=== PATIENT | male | born 1955 | race Caucasian/White ===

== ENCOUNTER 2016-11-28 07:50 | Day surgery (SDC) | payer OTHER ==
[~2016-11-28] VITALS: Ht 175.3 cm; Wt 76.4 kg
[2016-11-28] VITALS (17 sets, daily range): BP systolic 154–214; BP diastolic 81–111; PULSE 76–94; RESP 15–31; Ht 175.3 cm; Wt 76.4 kg
[~2016-11-28 07:50] MED LIST: CEFAZOLIN 2 GM/50 ML (PMX) 50 ML IVPB SCH; DIPHENHYDRAMINE 50 MG INJ IV PRN; DOXY100C47 PO; EPHEDrine SULFATE 50 MG/5 ML SYG IV PRN; FENT1PAT54 TD; FENTAnyl 50 MCG/ML VIAL IV PRN; HYDR-906 PO; HYDROmorphONE (0.2 MG/ML) 10ML SYG IV PRN; LABETALOL HCL 20MG INJ IV PRN; LACTATED RINGER'S 1,000 ML IV* SCH; MEPERIDINE 25 MG INJ IV PRN; ONDANSETRON 4 MG INJ IV PRN; OXYC-281 PO; OXYCODONE/ACETAMINOPHEN (5/325) TAB PO PRN; PROCHLORPERAZINE 10 MG INJ IV PRN; QUIN20TA23 PO; hydrALAzine 20 MG INJ IV PRN
[2016-11-28] MEDS ORDERED: AMLO-147 PO (09:07)
[2016-11-28] MEDS ORDERED: ZOLP10TA3 SL (09:08)
[2016-11-28] MEDS ORDERED: HYDR12.58 PO (09:08)
[2016-11-28] MEDS ORDERED: FER325 PO (09:08)
[2016-11-28] MEDS ORDERED: LORA1TAB PO (09:09)
[2016-11-28] MEDS ORDERED: ATOR40TA68 PO (09:09)
[2016-11-28] MEDS ORDERED: METO-429 PO (09:11)
[2016-11-28] MEDS ORDERED: QUIN40TA22 PO (09:11)
[2016-11-28] MEDS ORDERED: SERT50TA PO ×2 (09:12→09:13)
[2016-11-28 09:59] LABS: BASOPHIL # 0.1 10^3/ul (0.0-0.1); BASOPHILS % 2.1 % (0.0-2.0); EOSINOPHILS # 0.1 10^3/ul (0.0-0.5); EOSINOPHILS % 1.6 % (0.0-7.0); HEMATOCRIT 40.8 % (42.0-52.0); HEMOGLOBIN 13.3 g/dl (14.0-18.0); LYMPHOCYTES # 1.2 10^3/ul (0.8-2.9); LYMPHOCYTES % 17.8 % (15.0-51.0); MEAN CORPUSCULAR HEMOGLOBIN 30.4 pg (29.0-33.0); MEAN CORPUSCULAR HGB CONC 32.6 g/dl (32.0-37.0); MEAN CORPUSCULAR VOLUME 93.4 fl (82.0-101.0); MEAN PLATELET VOLUME 10.3 fl (7.4-10.4); MONOCYTE # 0.6 10^3/ul (0.3-0.9); MONOCYTES % 9.1 % (0.0-11.0); NEUTROPHILS % 69.1 % (39.0-77.0); PLATELET COUNT 308 10^3/UL (140-415); RED BLOOD COUNT 4.37 10^6/ul (4.70-6.10); WHITE BLOOD COUNT 6.7 10^3/ul (4.8-10.8)
[2016-11-28 10:32] LABS: INR 0.98
--- NOTE | 2016-11-28 11:02 | HPN ---
Date/Time of Note Date/Time of Note DATE: 11/28/16 TIME: 11:01 Interval H&P Admission Note Pt. seen H&P reviewed: No system changes SARANYA JONES MD Nov 28, 2016 11:02
[2016-11-28 11:03] LABS: CALCIUM 8.8 mg/dl (8.4-10.2); CREATININE 0.79 mg/dl (0.61-1.24); POTASSIUM 3.8 mmol/L (3.5-5.1)
[2016-11-28] MEDS ORDERED: FENTAnyl 50 MCG/ML VIAL ONE (11:10)
[2016-11-28] MEDS ORDERED: LIDOCAINE 2% (SDV) 5 ML INJ ONE (11:10)
[2016-11-28] MEDS ORDERED: MIDAZOLAM 1 MG/ML 2 ML INJ ONE (11:10)
[2016-11-28] MEDS ORDERED: PROPOFOL 20 ML ONE (11:10)
[2016-11-28] MEDS ORDERED: ROCURONIUM 50 MG INJ ONE (11:10)
[2016-11-28] MEDS ORDERED: GLYCOPYRROLATE 0.4 MG INJ ONE (11:10)
[2016-11-28] MEDS ORDERED: NEOSTIGMINE 3 MG/3 ML SYRINGE ONE (11:10)
[2016-11-28] MEDS ORDERED: SUCCINYLCHOLINE CHLORIDE 100 MG/5 ML SYG IV ONE (11:13)
[2016-11-28] MEDS ORDERED: ROPIVACAINE 0.5 % 30 ML VIAL ONE (11:14)
[2016-11-28] MEDS ORDERED: SUGAMMADEX SODIUM 200 MG/2 ML VIAL IV ONE (11:14)
[2016-11-28] MEDS ORDERED: DEXAMETHASONE 4 MG/ML 1 ML INJ ONE (11:17)
[2016-11-28] MEDS ORDERED: ONDANSETRON 4 MG INJ ONE (11:17)
[2016-11-28] MEDS ORDERED: BUPIVACAINE 0.5%/EPI (SDV) 30 ML INJ ONE (11:22)
[2016-11-28] MEDS ORDERED: VANCOMYCIN 1 GM (PMX) 250 ML ONE (12:25)
--- NOTE | 2016-11-28 13:05 | SIPON ---
Date/Time of Note Date/Time of Note DATE: 11/28/16 TIME: 13:03 Operative Report Preoperative Diagnosis Right shoulder, loose glenoid component of total shoulder arthroplasty Postoperative Diagnosis Right, shoulder, loose glenoid component of total shoulder arthroplasty, synovitis, chondromalacia Operation/Procedure Performed Right shoulder arthroscopy, removal of loose glenoid component via seperate incision, chondroplasty, synovectomy, Surgeon: SARANYA JONES MD Anesthesia Type: general Estimated Blood Loss: minimal Transfusion Required: no Specimens Glenoid polyethylene component Grafts/Implants: none Complications: no SARANYA JONES MD Nov 28, 2016 13:05
[2016-11-28] MEDS ORDERED: hydrALAzine 20 MG INJ ONE (13:18)
[2016-11-28] MEDS ORDERED: LABETALOL HCL 20MG INJ ONE (13:19)
[2016-11-28] MEDS: hydrALAzine 20 MG INJ IV PRN ×2 (13:30→15:37)
[2016-11-28] MEDS ORDERED: OXYCODONE/ACETAMINOPHEN (5/325) TAB PO PRN ×2 (13:30)
[2016-11-28] MEDS ORDERED: ONDANSETRON 4 MG INJ IV PRN (13:30)
[2016-11-28] MEDS ORDERED: morphine (1 MG/ML) 10ML SYRINGE IV PRN (13:30)
[2016-11-28] MEDS ORDERED: ALBUTEROL 0.083% (NEB) 2.5 MG/3 ML AMP HHN PRN (13:30)
[2016-11-28] MEDS ORDERED: FENTAnyl 50 MCG/ML VIAL IV PRN ×2 (13:30)
[2016-11-28] MEDS ORDERED: METOCLOPRAMIDE 10 MG INJ IV PRN (13:30)
[2016-11-28] MEDS ORDERED: HYDROmorphONE (0.2 MG/ML) 10ML SYG IV PRN ×3 (13:30)
[2016-11-28] MEDS ORDERED: MEPERIDINE 25 MG INJ IV PRN (13:30)
[2016-11-28] MEDS: LABETALOL HCL 20MG INJ IV PRN ×3 (13:40→13:57)
--- NOTE | 2016-11-28 13:51 | RADRPT ---
PROCEDURE: XR Chest. CLINICAL INDICATION: Shortness of breath. TECHNIQUE: Single frontal view. COMPARISON: None. FINDINGS: The lungs are clear. The heart size is normal. There are sternal wires and mediastinal clips. There is no pleural effusion. There is no pneumothorax. There are bilateral humeral head prosthesis. IMPRESSION: 1. Previous median sternotomy. 2. Clear lungs. 3. Prior bilateral shoulder surgery. RPTAT: QQ .Hans Palmer MD, MD Date Time Electronically viewed and signed by .Hans Palmer MD, MD on 11/28/2016 13:51 .R/
[2016-11-28] MEDS: morphine (1 MG/ML) 10ML SYRINGE IV PRN ×2 (14:09→14:16)
--- NOTE | 2016-11-29 08:40 | OPR ---
DATE OF OPERATION: 11/28/2016 SURGEON: Roland Casillas MD. TRAINING PROJECT MANAGER: None. ANESTHESIOLOGIST: Dr. Kirby. ANESTHESIOLOGIST: General with preoperative interscalene block. PREOPERATIVE DIAGNOSIS: Right total shoulder arthroplasty, loose glenoid component. POSTOPERATIVE DIAGNOSES: 1. Right total shoulder arthroplasty, loose glenoid component. 2. Synovitis of the glenohumeral joint. 3. Chondromalacia of the glenoid. OPERATION PERFORMED: 1. Arthroscopy of the right shoulder. 2. Arthroscopic removal of loose body through a separate incision, 22 modifier. 3. Extensive debridement of glenohumeral joint. 4. Chondroplasty of glenoid. 5. Arthroscopic synovectomy, extensive. ESTIMATED BLOOD LOSS: Minimal. ANTIBIOTICS: Ancef. INDICATION: This is a patient who underwent total shoulder arthroplasty previously with Dr. Magaña and ultimately the glenoid component underwent loosening, with significant drifting through the musculature, causing patient and deformity. After the risks of surgery, including pain, bleeding, infection, damage to neurovascular structures, failure of surgery, blood clots of the upper extremities, lower extremities, pulmonary embolus, risks of anesthesia and were explained to the patient, he elected to proceed. He understood the risks of the surgery could include infection and instability of the total arthroplasty, patient elected to proceed. ARTHROSCOPIC FINDINGS: Within the glenohumeral joint, the total shoulder arthroplasty humeral component was in good condition. There was extensive excoriation of the glenoid consistent with previous placement of a glenoid component. There was synovitis in all compartments of the glenoid 360 degrees. There was no visible evidence of the glenoid component within the joint. There were no rents or holes in the posterior capsule indicative of wear the escape exactly took place; however, the glenoid component was palpable underneath the skin in the posterior musculature. OPERATIVE PROCEDURE: Patient was marked and identified in the preoperative holding. Brought to the operating room, placed supine on the operating room table, was placed under anesthesia. He was then placed in the lateral decubitus position with his arm placed in balance suspension and his bony prominences were well padded. Sequential compression devices placed on bilateral lower extremities and his head well positioned. His bilateral upper extremities prepped and draped in the usual sterile fashion and he was placed in balance suspension and a time-out was initiated and arthroscopy was initiated, with the results of diagnostic arthroscopy. First area of work was performed by chondroplasty within the glenoid. This was successfully done due to the previous reaming that took place on the glenoid, as well as the synovectomy, which took place on 360 degrees. There were extensive areas of synovitis, especially posterior. The posterior capsule was well inspected and found to have absolutely no evidence of wear at this point, the component had escaped from, indicated the time, which this component has been loose, which has been some time. The inspection of the humeral component was in good condition. The rotator cuff was also in good condition. The glenoid component was localized with a spinal needle and poking right through the skin in order to capture the glenoid. Then an incision was made through Aldo's lines and submuscularly split and spread until the bursa was identified for the and then 1 instrument was used to grab the component and retrieve it from the body. This was done in a single piece. The glenoid was removed completely in 1 piece. The space was copiously irrigated and closure was performed with 2-0 Vicryl and then 3-0 Monocryl. Other portals were closed with 3-0 Monocryl. The scope was re- introduced into the joint to confirm that there were no other changes and this terminated the procedure. After closure, a sterile dressing was applied and the patient extubated in good condition with abduction pillow and a sling. 22 MODIFIER STATEMENT: A 22 modifier will be applied for the CPT codes in this case. This case took significantly longer than the standard case due to the unique feature of the fact this was a loose total shoulder arthroplasty of glenoid component, not just a some fragment of cocopah tissue. There was no CPT code that matches this; therefore, a 22 modifier will be applied to the existing CPT codes to match this increased difficulty and double to triple standard operating time required. Dictated By: Roland Casillas MD /thomas/antonia /Document#: [id number] CARLOS ENRIQUE
== END 2016-11-28 16:29 | disposition home or self-care (01) ==
LOC: SDS 07:50
PROVIDERS: ATTEND Orthopaedic Surgery
DX: Z96.619 Presence of unspecified artificial shoulder joint (principal); T84.89XA Other specified complication of internal orthopedic prosthetic devices, implants and grafts, initial encounter; Y79.8 Miscellaneous orthopedic devices associated with adverse incidents, not elsewhere classified; Y92.89 Other specified places as the place of occurrence of the external cause; I10 Essential (primary) hypertension; J44.9 Chronic obstructive pulmonary disease, unspecified; I25.110 Atherosclerotic heart disease of native coronary artery with unstable angina pectoris; Z95.1 Presence of aortocoronary bypass graft; F17.200 Nicotine dependence, unspecified, uncomplicated
CPT/HCPCS: 29820; 71010; 80048; 85025; 85610; 85730; 88300; J0360; J1100; J2250; J2270; J2405; J2795; J3010; J3370; Z7512; Z7610; J2710; J7999

== ENCOUNTER 2016-12-18 14:22 | Inpatient (IN) | payer OTHER ==
[~2016-12-18] VITALS: Ht 167.6 cm; Wt 78.8 kg
[~2016-12-18 14:22] MED LIST changes: +AMLO-147 PO; +ATOR40TA68 PO; -CEFAZOLIN 2 GM/50 ML (PMX) 50 ML IVPB SCH; -DIPHENHYDRAMINE 50 MG INJ IV PRN; -DOXY100C47 PO; -EPHEDrine SULFATE 50 MG/5 ML SYG IV PRN; -FENT1PAT54 TD; -FENTAnyl 50 MCG/ML VIAL IV PRN; +FER325 PO; -HYDR-906 PO; +HYDR12.58 PO; -HYDROmorphONE (0.2 MG/ML) 10ML SYG IV PRN; -LABETALOL HCL 20MG INJ IV PRN; -LACTATED RINGER'S 1,000 ML IV* SCH; +LORA1TAB PO; -MEPERIDINE 25 MG INJ IV PRN; +METO-429 PO; -ONDANSETRON 4 MG INJ IV PRN; -OXYC-281 PO; -OXYCODONE/ACETAMINOPHEN (5/325) TAB PO PRN; -PROCHLORPERAZINE 10 MG INJ IV PRN; -QUIN20TA23 PO; +QUIN40TA PO; +SERT50TA PO; +ZOLP10TA3 SL; -hydrALAzine 20 MG INJ IV PRN
[2016-12-18] MEDS ORDERED: VANCOMYCIN 1 GM (PMX) 250 ML IVPB STA (16:15)
[2016-12-18] MEDS ORDERED: PIPER-TAZO 3.375 GM IV (PMX) 100 ML IVPB STA (16:15)
--- NOTE | 2016-12-18 16:35 | ERA ---
ER Documentation Chief Complaint Date/Time DATE: 12/18/16 TIME: 16:25 Chief Complaint Complains of right shoulder pain sent from for val THOMAS This is a 61-year-old male with a past medical history of hypertension, hyperlipidemia, aortic dissection and December 2015 requiring emergent surgical intervention at [facility], chronic bilateral shoulder pain requiring replacement in the past with a recent surgical intervention of the right shoulder requiring removal of hardware who is now presenting with concerns of a right shoulder infection. This surgery was completed by Dr. Casillas on November 28. He started to develop worsening pain at his portal incision site with redness and swelling. He was seen by Dr. Buckley in the office today who attempted an I&D without significant success. There is concern of infection at the site. Dr. Buckley is requesting a workup be performed in addition to giving IV antibiotics. He requests admission to the hospital with a consultation to his service. Aside from pain and limited range of motion to the right shoulder, the patient has no other complaints. He has not had any fever or chills. He has had no chest pain or trouble breathing. He has had no nausea or vomiting. He has no chest pain or trouble breathing. He has no radiating pain. He has no abdominal pain. He has no changes to bowel movements or urination. He has no focal deficits. He has no weakness or numbness or tingling to the face or extremities. He has full strength and sensation to the right arm/hand. His pulses are normal. His hand is not pale or cyanotic. ROS All systems reviewed and are negative except as per history of present illness. Medications Home Meds Reported Medications Hydrocodone/Acetaminophen ([place] 5-325 Tablet) 1 Each Tablet, 1 EACH PO DAILY for NEEDED, TAB 12/18/16 Tramadol Hcl* (Ultram*) 50 Mg Tablet, 50 MG PO Q6H Y for PAIN, TAB 12/18/16 Quinapril Hcl (Quinapril Hcl) 40 Mg Tablet, 40 MG PO DAILY, #30 TAB 11/28/16 Metoprolol Tartrate* (Lopressor*) 50 Mg Tab, 50 MG PO BID, #60 TAB 11/28/16 Atorvastatin* (Atorvastatin*) 40 Mg Tablet, 40 MG PO QHS, #30 TAB 11/28/16 Ferrous Sulfate* (Ferrous Sulfate*) 325 Mg Tabec, 325 MG PO BID, TAB 11/28/16 Amlodipine Besylate* (Amlodipine Besylate*) 10 Mg Tablet, 10 MG PO DAILY, #30 TAB 11/28/16 Discontinued Reported Medications Sertraline Hcl* (Zoloft*) 50 Mg Tablet, 50 MG PO DAILY, #30 TAB 11/28/16 Sertraline Hcl* (Zoloft*) 50 Mg Tablet, 50 MG PO DAILY, #30 TAB 11/28/16 Lorazepam* (Lorazepam*) 1 Mg Tablet, 1 MG PO TID Y for ANXIETY, #30 TAB 11/28/16 Hydrochlorothiazide* (Hydrochlorothiazide*) 12.5 Mg Tablet, 12.5 MG PO DAILY, # 30 TAB 11/28/16 Zolpidem Tartrate (Edluar) 10 Mg Tab.subl, 10 MG SL QHS 11/28/16 Allergies Allergies: Coded Allergies: Sulfa (Sulfonamide Antibiotics) (Unverified Allergy, Mild, 12/18/16) Penicillins (Verified Allergy, Unknown, 12/18/16) PMhx/Soc History of Surgery: Yes (MULTIPLE ORTHO SX. GABG, ) Anesthesia Reaction: No Hx Neurological Disorder: No Hx Respiratory Disorders: Yes (EMPHYSEMA ) Hx Cardiac Disorders: Yes (HTN , HIGH CHOLESTEROL ) Hx Psychiatric Problems: No Hx Miscellaneous Medical Probl: No Hx Alcohol Use: No Hx Substance Use: No Hx Tobacco Use: Yes FmHx Family History: diabetes Physical Exam Vitals Vital Signs Date Time Temp Pulse Resp B/P Pulse Ox O2 Delivery O2 Flow Rate FiO2 12/18/16 17:11 99.0 79 20 138/81 98 Room Air 12/18/16 14:25 99.3 85 20 158/84 98 Physical Exam Const: NAD, Well developed, Well nourished Head: Atraumatic Eyes: Normal Conjunctiva ENT: Normal External Ears, Nose and Mouth. Neck: Full range of motion..~ No meningismus. Resp: Clear to auscultation bilaterally Cardio: Regular rate and rhythm, no murmurs Abd: Soft, non tender, non distended. Normal bowel sounds Skin: No petechiae or rashes Back: No midline or flank tenderness Ext: No cyanosis. right posterior shoulder pain, fluctuance, edema, erythema. Limited ROM to right shoulder. normal pulses, sensation and strength to the right arm distal to the shoulder. Neur: Awake and alert Psych: Normal Mood and Affect Result Diagram: 12/18/16 1630 12/18/16 1630 Results 24 hrs Laboratory Tests Test 12/18/16 16:20 12/18/16 16:30 Erythrocyte Sedimentation Rate 20mm/Hr White Blood Count 17.210^3/ul Red Blood Count 4.4210^6/ul Hemoglobin 13.3g/dl Hematocrit 40.2% Mean Corpuscular Volume 91.0fl Mean Corpuscular Hemoglobin 30.1pg Mean Corpuscular Hemoglobin Concent 33.1g/dl Red Cell Distribution Width 14.2% Platelet Count 35840^3/UL Mean Platelet Volume 10.1fl Neutrophils % 81.0% Lymphocytes % 7.2% Monocytes % 9.8% Eosinophils % 0.6% Basophils % 0.9% Nucleated Red Blood Cells % 0.0/100WBC Neutrophils # 13.910^3/ul Lymphocytes # 1.210^3/ul Monocytes # 1.710^3/ul Eosinophils # 0.110^3/ul Basophils # 0.210^3/ul Nucleated Red Blood Cells # 0.010^3/ul Prothrombin Time 13.4Sec Prothrombin Time Ratio 1.0 INR International Normalized Ratio 1.02 Activated Partial Thromboplast Time 30.6Sec Sodium Level 139mmol/L Potassium Level 4.1mmol/L Chloride Level 105mmol/L Carbon Dioxide Level 26mmol/L Anion Gap 12 Blood Urea Nitrogen 22mg/dl Creatinine 0.96mg/dl Glucose Level 100mg/dl Calcium Level 8.6mg/dl C-Reactive Protein 4.7mg/dl Current Medications Medications (Trade) Dose Ordered Sig/Sudhir Route PRN Reason Start Time Stop Time Status Last Admin Dose Admin Vancomycin HCl 250 ml @ 125 mls/hr ONCE STAT IVPB 12/18/16 16:15 12/18/16 18:14 DC Piperacillin Sod/ Tazobactam Sod 100 ml @ 100 mls/hr ONCE STAT IVPB 12/18/16 16:15 12/18/16 17:09 DC Cefepime HCl (Maxipime 1gm/50 ml (Pmx)) 50 ml @ 100 mls/hr ONCE ONCE IVPB 12/18/16 17:30 12/18/16 17:59 DC 12/18/16 17:16 Ondansetron HCl (Zofran Inj) 4 mg BRIDGE ORDER PRN IV NAUSEA AND/OR VOMITING 12/18/16 18:00 12/19/16 17:59 Acetaminophen (Tylenol Tab) 650 mg ER BRIDGE PRN PO MILD PAIN/FEVER 12/18/16 18:00 12/19/16 17:59 Lidocaine/ Epinephrine (Xylocaine 1%/ Epi (Pf)) 30 ml ONCE STAT INJ 12/18/16 17:47 12/18/16 17:48 DC Lidocaine (Xylocaine 1% (Mdv) 20 ml) 20 ml ONCE ONCE SC 12/18/16 18:00 12/18/16 18:03 DC Lidocaine/ Epinephrine (Xylocaine 2%/ Epi Mpf(Sdv)) 20 ml ONCE INJ 12/18/16 18:30 12/18/16 18:31 DC Lidocaine/ Epinephrine (Xylocaine 2%/ Epi Mpf(Sdv)) 20 ml ONCE ONCE INJ 12/18/16 18:30 12/18/16 18:31 DC IV Flush (NS 3 ml) 3 ml PER PROTOCOL IV 12/18/16 19:00 UNV Acetaminophen (Tylenol Tab) 650 mg Q6H PRN PO PAIN LEVEL 1-3 OR FEVER 12/18/16 19:00 UNV Acetaminophen/ Hydrocodone Bitart ([place] (5/325)) 1 tab Q6H PRN PO MODERATE PAIN LEVEL 4-6 12/18/16 19:00 UNV Acetaminophen/ Hydrocodone Bitart ([place] (5/325)) 2 tab Q6H PRN PO SEVERE PAIN LEVEL 7-10 12/18/16 19:00 UNV Morphine Sulfate (morphine) 2 mg Q4H PRN IV SEVERE PAIN LEVEL 7-10 12/18/16 19:00 UNV Enoxaparin Sodium (Lovenox) 40 mg DAILY SC 12/19/16 09:00 UNV Vancomycin HCl (Vanco Iv Per Pharmacy) VANCOMYCIN PER PHARMACY PER PROTOCOL XX 12/18/16 19:00 UNV Amlodipine Besylate (Norvasc) 10 mg DAILY PO 12/19/16 09:00 UNV Atorvastatin Calcium (Lipitor) 40 mg QHS PO 12/18/16 21:00 UNV Ferrous Sulfate (Ferrous Sulfate (Ec)) 325 mg BID PO 12/18/16 21:00 UNV Metoprolol Tartrate (Lopressor) 50 mg BID PO 12/18/16 21:00 UNV Tramadol HCl (Ultram) 50 mg Q6H PRN PO PAIN 12/18/16 19:00 UNV Miscellaneous Information 40 mg DAILY PO 12/19/16 09:00 UNV Hydromorphone HCl (Dilaudid) 1 mg ONCE STAT IV 12/18/16 18:51 12/18/16 18:52 UNV Procedures/MDM MDM Patient's presentation warrants further investigation. There are concerns of infection of the right shoulder as a postoperative complication. Blood work including ESR and CRP will be obtained. LABS The patient's blood work was obtained and reviewed. The patient seemed shows leukocytosis and left shift. The patient is afebrile, but a systemic infection should be ruled out. Blood cultures will need to be sent off. The patient is mildly anemic today, which does not require emergent treatment. The patient's platelet count is unremarkable. The patient's CMP shows an elevated BUN that could be a component of dehydration, but no other signs of metabolic or electrolyte abnormality. The patient has normal renal and hepatic function testing. The patients CRP is mildly elevated, and the ESR is normal. This is reassuring. IMAGING Shoulder XR FINDINGS: No pleural effusion or pneumothorax. No consolidation. Unremarkable cardiac silhouette. Dilated aortic arch suggestive of chronic systemic hypertension. No acute osseous abnormality. Median sternotomy changes. Bilateral shoulder arthroplasties. MPRESSION: No acute cardiopulmonary disease. Electronically viewed and signed by Physician Nicolasa on 12/18/2016 17 :08 Shoulder XR Pending. Will be evaluated by orthopedic surgeon EKG EKG read by me: Rate/Rhythm: Regular rate and rhythm at a rate of 76 Intervals: Normal [place]: Normal Impression: No evidence of ischemia or arrhythmia TREATMENT/DISPOSITION The patient has leukocytosis with findings consistent with a right shoulder soft tissue infection at minimum. The patient will receive antibiotics of vancomycin and cefepime in the emergency department per the instruction of the orthopedic physician. The patient's vital signs are stable, and I do not suspect sepsis at this time. I do not intend to obtain serial lactic acids. Blood cultures will be sent off however for further evaluation by the team in the hospital. The patient's chest x-ray was unremarkable. His shoulder x-ray is pending and will be evaluated by the orthopedic surgeon. His orthopedic surgeon, Dr. Casillas evaluated the patient in the emergency department. An I&D was completed and wound cultures will be sent off. This does appear to be an infection in the port site from the operative intervention in November. Further intervention will be decided upon by the orthopedic physician. The patient will be admitted to the panel service as per his insurance. The hospitalist team will provide primary evaluation and management with consultation with the orthopedic doctor. Departure Diagnosis: Primary Impression: Shoulder pain Qualified Code: M25.511 - Acute pain of right shoulder Additional Impressions: Leukocytosis Qualified Code: D72.820 - Lymphocytosis Post op infection Qualified Code: T81.4XXA - Postoperative infection, initial encounter Condition: MATHIEU Pisano MD Dec 18, 2016 16:35
[2016-12-18 16:53] LABS: ABNORMAL IP MESSAGE 1; BASOPHIL # 0.2 10^3/ul (0.0-0.1); BASOPHILS % 0.9 % (0.0-2.0); EOSINOPHILS # 0.1 10^3/ul (0.0-0.5); EOSINOPHILS % 0.6 % (0.0-7.0); HEMATOCRIT 40.2 % (42.0-52.0); HEMOGLOBIN 13.3 g/dl (14.0-18.0); LYMPHOCYTES # 1.2 10^3/ul (0.8-2.9); LYMPHOCYTES % 7.2 % (15.0-51.0); MEAN CORPUSCULAR HEMOGLOBIN 30.1 pg (29.0-33.0); MEAN CORPUSCULAR HGB CONC 33.1 g/dl (32.0-37.0); MEAN PLATELET VOLUME 10.1 fl (7.4-10.4); MONOCYTE # 1.7 10^3/ul (0.3-0.9); MONOCYTES % 9.8 % (0.0-11.0); NEUTROPHIL # 13.9 10^3/ul (1.6-7.5); PLATELET COUNT 301 10^3/UL (140-415); POSITIVE DIFF @See below; RED BLOOD COUNT 4.42 10^6/ul (4.70-6.10); RED CELL DISTRIBUTION WIDTH 14.2 % (11.5-14.5); WHITE BLOOD COUNT 17.2 10^3/ul (4.8-10.8)
--- NOTE | 2016-12-18 17:08 | RADRPT ---
PROCEDURE: XR Chest. CLINICAL INDICATION: Cough TECHNIQUE: Single frontal view of the chest was obtained COMPARISON: None FINDINGS: No pleural effusion or pneumothorax. No consolidation. Unremarkable cardiac silhouette. Dilated aortic arch suggestive of chronic systemic hypertension. No acute osseous abnormality. Median sternotomy changes. Bilateral shoulder arthroplasties. IMPRESSION: No acute cardiopulmonary disease. RPTAT: EE Physician Nicolasa Date Time Electronically viewed and signed by Deb Peterson Physician on 12/18/2016 17:08 /
[2016-12-18 17:16] LABS: INR 1.02; PROTIME 13.4 Sec (12.2-14.2)
[2016-12-18 17:17] LABS: PARTIAL THROMBOPLASTIN TIME 30.6 Sec (25.0-35.0)
[2016-12-18 17:20] LABS: CALCIUM 8.6 mg/dl (8.4-10.2); CREATININE 0.96 mg/dl (0.61-1.24); POTASSIUM 4.1 mmol/L (3.5-5.1)
[2016-12-18] MEDS ORDERED: TRAM-40 PO (17:27)
[2016-12-18] MEDS ORDERED: HYDR-906 PO (17:27)
[2016-12-18] MEDS ORDERED: CEFEPIME 1GM/50 ML (PMX) 50 ML IVPB ONE (17:30)
[2016-12-18] MEDS ORDERED: LIDOCAINE 1%/EPI 30 ML INJ INJ STA (17:47)
[2016-12-18] MEDS ORDERED: ONDANSETRON 4 MG INJ IV PRN (18:00)
[2016-12-18] MEDS ORDERED: ACETAMINOPHEN 325 MG TAB PO PRN ×2 (18:00→19:00)
[2016-12-18] MEDS ORDERED: LIDOCAINE 1% (MDV) 20 ML INJ SC ONE (18:00)
[2016-12-18 18:15] LABS: C-REACTIVE PROTEIN 4.7 mg/dl (0.0-0.9)
[2016-12-18] MEDS ORDERED: LIDOCAINE 2%/EPI MPF (SDV) 20 ML VIAL INJ SCH (18:30)
[2016-12-18] MEDS ORDERED: LIDOCAINE 2%/EPI MPF (SDV) 20 ML VIAL INJ ONE (18:30)
--- NOTE | 2016-12-18 18:45 | HP ---
Date/Time of Note Date/Time of Note DATE: 12/18/16 TIME: 18:44 Assessment/Plan VTE Prophylaxis VTE Prophylaxis Intervention: SCD's Lines/Catheters IV Catheter Type (from Nrsg): Peripheral IV Assessment/Plan Assessment/Plan 61 yo M here with wound infection, concern for PJI plan I&D by ortho today empiric vanc pending further culture data cont home meds may need washout pending results of ortho I&D HPI/ROS Admit Date/Time Admit Date/Time Hx of Present Illness CC R shoulder wound HPI 61 yo M with pmhx HTN, HL, SHIRA, h/o bl shoulder replacements with most recent surgical intervention 1 mo ago presents with a R shoulder wound. Pt with remote h/o bl shoulder replacements. A few weeks ago had R shoulder pain, orthopedic eval concerning for loosening of glenoid part of prosthesis. 9.1 pt underwent R total shoulder arthroplasty with loose body removal. The loose body was noted to be outside of the actual joint space and was retrieved from under the skin. Pt then missed his f/u ortho clinic appointment but was then seen yesterday and noted to have redness and some purulence draining from his R shoulder surgical site. This was cultured in clinic. Because this did not resolve overnight ,he presented to the ER today for further eval. Of note, at time of my eval of the patient, orthopedist was in the room and preparing to do an I&D. = PMH/Family/Social Social History Smoking Status: Current every day smoker Exam/Review of Systems Vital Signs Vitals Vital Signs Date Time Temp Pulse Resp B/P Pulse Ox O2 Delivery O2 Flow Rate FiO2 12/18/16 17:11 99.0 79 20 138/81 98 Room Air Exam Exam nad EOMI MMM R shoulder with 4 cm incision at lateral aspect, +.5cm surrounding erythema and induration on both sides, +purulent drainage from wound no mrg lungs clear abd soft no rashes WBCs 17 Labs Result Diagram: 12/18/16 1630 12/18/16 1630 Medications Medications Current Medications Acetaminophen (Tylenol Tab) 650 mg Q6H PRN PO PAIN LEVEL 1-3 OR FEVER; Start at 19:00; Status UNV Acetaminophen/ Hydrocodone Bitart ([place] (5/325)) 1 tab Q6H PRN PO MODERATE PAIN LEVEL 4-6; Start 12/18/16 at 19:00; Status UNV Acetaminophen/ Hydrocodone Bitart ([place] (5/325)) 2 tab Q6H PRN PO SEVERE PAIN LEVEL 7-10; Start 12/18/16 at 19:00; Status UNV Morphine Sulfate (morphine) 2 mg Q4H PRN IV SEVERE PAIN LEVEL 7-10; Start 12/18 at 19:00; Status UNV Enoxaparin Sodium (Lovenox) 40 mg DAILY SC ; Start 12/19/16 at 09:00; Status UNV DOROTHY BRYSON MD Dec 18, 2016 18:45
[2016-12-18] MEDS ORDERED: HYDROmorphONE 1 MG/ML SYG IV STA (18:51)
[2016-12-18] MEDS ORDERED: NACL 0.9% 3 ML SYG IV SCH (19:00)
[2016-12-18] MEDS ORDERED: VANCOMYCIN IV PER PHARMACY XX SCH (19:00)
--- NOTE | 2016-12-18 19:31 | RADRPT ---
PROCEDURE: XR Shoulder CLINICAL INDICATION: Right shoulder infection. TECHNIQUE: Three views of the right shoulder are available for review. COMPARISON: Exam dated 03/02/2014. FINDINGS: There is a right shoulder arthroplasty in place without evidence of hardware loosening, f ailure, or periprosthetic fracture. The alignment is unchanged. There is edema and questionable subc utaneous emphysema within the deltoid soft tissues. The glenohumeral joint is intact. The acromiocl avicular joint is also intact and unremarkable. The visualized right lung is clear and the visualize d right ribs demonstrate no displaced fracture. IMPRESSION: 1. Right shoulder arthroplasty in place without evidence of hardware complication. 2. Edema and questionable subcutaneous emphysema within the deltoid soft tissues, suspicious for ce llulitis. Post contrast CT may be helpful for further evaluation. RPTAT: HLBP .Percy Kline MD, Date Time Electronically viewed and signed by .Percy Kline MD, on 12/18/2016 19:31 .P/
[2016-12-18] MEDS ORDERED: HYDROmorphONE 1 MG/ML SYG IV ONE (21:18)
[2016-12-18 21:23] VITALS: TEMP 99
[2016-12-18] MEDS: HYDROCODONE/APAP (5/325) TAB PO PRN (22:20)
[2016-12-18 22:25] VITALS: BP 144/72; RESP 20
[2016-12-18] MEDS: ATORVASTATIN 40 MG TAB PO SCH (22:47)
[2016-12-18] MEDS: FERROUS SULFATE (EC) 325 MG TAB PO SCH (22:47)
[2016-12-18] MEDS: METOPROLOL 50 MG TAB PO SCH (22:47)
[2016-12-18 22:56] VITALS: Ht 167.6 cm; Wt 78.8 kg
[2016-12-18] MEDS ORDERED: ZOLPIDEM 5 MG TAB PO ONE (23:00)
[2016-12-19] MEDS: morphine 2 MG INJ IV PRN ×4 (00:35→14:15)
[2016-12-19 02:55] VITALS: BP 142/74; RESP 18
[2016-12-19] MEDS: VANCOMYCIN 1 GM in NS 250 ML IVPB SCH ×2 (05:00→17:27)
[2016-12-19 06:17] LABS: BASOPHIL # 0.1 10^3/ul (0.0-0.1); BASOPHILS % 0.7 % (0.0-2.0); EOSINOPHILS % 0.2 % (0.0-7.0); HEMATOCRIT 36.6 % (42.0-52.0); HEMOGLOBIN 12.1 g/dl (14.0-18.0); LYMPHOCYTES # 0.9 10^3/ul (0.8-2.9); LYMPHOCYTES % 4.8 % (15.0-51.0); MEAN CORPUSCULAR HEMOGLOBIN 30.6 pg (29.0-33.0); MEAN CORPUSCULAR HGB CONC 33.1 g/dl (32.0-37.0); MEAN CORPUSCULAR VOLUME 92.7 fl (82.0-101.0); MEAN PLATELET VOLUME 10.4 fl (7.4-10.4); MONOCYTE # 1.5 10^3/ul (0.3-0.9); NEUTROPHIL # 15.7 10^3/ul (1.6-7.5); NEUTROPHILS % 85.7 % (39.0-77.0); PLATELET COUNT 248 10^3/UL (140-415); RED BLOOD COUNT 3.95 10^6/ul (4.70-6.10); RED CELL DISTRIBUTION WIDTH 14.2 % (11.5-14.5); WHITE BLOOD COUNT 18.4 10^3/ul (4.8-10.8)
[2016-12-19] MEDS: HYDROCODONE/APAP (5/325) TAB PO PRN ×2 (07:04→19:55)
[2016-12-19 07:35] VITALS: BP 135/84; RESP 18
[2016-12-19] MEDS: METOPROLOL 50 MG TAB PO SCH ×2 (08:15→20:26)
[2016-12-19] MEDS: FERROUS SULFATE (EC) 325 MG TAB PO SCH ×2 (08:15→20:25)
[2016-12-19] MEDS: BENAZEPRIL 40 MG TAB PO SCH (08:15)
[2016-12-19] MEDS: AMLODIPINE 10 MG TAB PO SCH (08:15)
[2016-12-19] MEDS: ENOXAPARIN 40 MG/0.4 ML SYG SC SCH (08:19)
[2016-12-19] MEDS ORDERED: QUINAPRIL HCL 40 MG PO SCH (09:00)
[2016-12-19] MEDS ORDERED: NICOTINE (21 MG/24 HR) PATCH TRANSDERM ONE (09:30)
--- NOTE | 2016-12-19 14:22 | PN ---
Date/Time of Note Date/Time of Note DATE: 12/19/16 TIME: 14:20 Assessment/Plan VTE Prophylaxis VTE Prophylaxis Intervention: SCD's Lines/Catheters IV Catheter Type (from Nrsg): Saline Lock Urinary Cath still in place: No Assessment/Plan Assessment/Plan 61 yo M here with wound infection, concern for PJI v cellulitis. Found to have bacteremia plan Ortho following f/u blood cultures and TTE ordered empiric vanc pending further culture data cont home meds may need washout pending results of ortho I&D NRT Subjective 24 Hr Interval Summary Free Text/Dictation Pt wants to go out to smoke and requests more pain meds Exam/Review of Systems Vital Signs Vitals Vital Signs Date Time Temp Pulse Resp B/P Pulse Ox O2 Delivery O2 Flow Rate FiO2 12/19/16 07:35 98.4 79 18 135/84 95 12/18/16 21:23 Room Air Intake and Output 12/18/16 12/18/16 12/19/16 15:00 23:00 07:00 Intake Total 1520 ml Output Total 100 ml Balance 1420 ml Exam nad, R shoulder wrapped and packed no mrg lungs clear abd soft no rashes admit blood cultures GPCs 2/2, I&D culture ngtd Results Result Diagram: 12/19/16 0529 12/18/16 1630 Results 24 hrs Laboratory Tests Test 12/18/16 16:20 12/18/16 16:30 12/19/16 05:29 Erythrocyte Sedimentation Rate 20 White Blood Count 17.2 #H 18.4 H Red Blood Count 4.42 L 3.95 L Hemoglobin 13.3 L 12.1 L Hematocrit 40.2 L 36.6 L Mean Corpuscular Volume 91.0 92.7 Mean Corpuscular Hemoglobin 30.1 30.6 Mean Corpuscular Hemoglobin Concent 33.1 33.1 Red Cell Distribution Width 14.2 14.2 Platelet Count 301 248 Mean Platelet Volume 10.1 10.4 Neutrophils % 81.0 H 85.7 H Lymphocytes % 7.2 L 4.8 L Monocytes % 9.8 8.0 Eosinophils % 0.6 0.2 Basophils % 0.9 0.7 Nucleated Red Blood Cells % 0.0 0.0 Neutrophils # 13.9 H 15.7 H Lymphocytes # 1.2 0.9 Monocytes # 1.7 H 1.5 H Eosinophils # 0.1 0.0 Basophils # 0.2 H 0.1 Nucleated Red Blood Cells # 0.0 0.0 Prothrombin Time 13.4 Prothrombin Time Ratio 1.0 INR International Normalized Ratio 1.02 Activated Partial Thromboplast Time 30.6 Sodium Level 139 Potassium Level 4.1 Chloride Level 105 Carbon Dioxide Level 26 Anion Gap 12 Blood Urea Nitrogen 22 H Creatinine 0.96 Glucose Level 100 Calcium Level 8.6 C-Reactive Protein 4.7 H Medications Medications Current Medications Acetaminophen (Tylenol Tab) 650 mg Q6H PRN PO PAIN LEVEL 1-3 OR FEVER; Start at 19:00 Acetaminophen/ Hydrocodone Bitart ([place] (5/325)) 1 tab Q6H PRN PO MODERATE PAIN LEVEL 4-6; Start 12/18/16 at 19:00 Acetaminophen/ Hydrocodone Bitart ([place] (5/325)) 2 tab Q6H PRN PO SEVERE PAIN LEVEL 7-10 Last administered on 12/19/16 07:04; Admin Dose 2 TAB; Start at 19:00 Morphine Sulfate (morphine) 2 mg Q4H PRN IV SEVERE PAIN LEVEL 7-10 Last administered on 12/19/16 14:15; Admin Dose 2 MG; Start 12/18/16 at 19:00 Enoxaparin Sodium (Lovenox) 40 mg DAILY SC Last administered on 12/19/16 08:19 ; Admin Dose 40 MG; Start 12/19/16 at 09:00 Amlodipine Besylate (Norvasc) 10 mg DAILY PO Last administered on 12/19/16 08: 15; Admin Dose 10 MG; Start 12/19/16 at 09:00 Atorvastatin Calcium (Lipitor) 40 mg QHS PO Last administered on 12/18/16 22: 47; Admin Dose 40 MG; Start 12/18/16 at 21:00 Ferrous Sulfate (Ferrous Sulfate (Ec)) 325 mg BID PO Last administered on 08:15; Admin Dose 325 MG; Start 12/18/16 at 21:00 Metoprolol Tartrate (Lopressor) 50 mg BID PO Last administered on 12/19/16 08: 15; Admin Dose 50 MG; Start 12/18/16 at 21:00 Tramadol HCl 50 mg 50 mg Q6H PRN PO PAIN; Start 12/18/16 at 19:00 Vancomycin HCl (Vancocin) 250 ml @ 125 mls/hr Q12H IVPB Last administered on 05:00; Admin Dose 125 MLS/HR; Start 12/19/16 at 05:00 Benazepril HCl (Lotensin) 40 mg DAILY PO Last administered on 12/19/16 08:15; Admin Dose 40 MG; Start 12/19/16 at 09:00 Nicotine (Nicoderm 21 Mg/ 24hr) 1 patch DAILY TRANSDERM ; Start 12/20/16 at 09: 00 DOROTHY BRYSON MD Dec 19, 2016 14:22
[2016-12-19 14:42] VITALS: BP 144/68; RESP 18
[2016-12-19] MEDS: morphine 4 MG/ML VIAL IV PRN ×2 (17:28→22:03)
--- NOTE | 2016-12-19 18:19 | RADRPT ---
Echocardiogram Report Patient Name: HAYES LEOS Gender: Male Date: 1955 Study Date: 19-Dec-2016 University Teacher: Shubham Borden.[facility] Location: [id number] Ref. Physician: DOROTHY BRYSON Quality: Adequate Procedures: Transthoracic echocardiogram with complete 2D, M-Mode, and doppler examination. Indications: Bacteremia. 2D/M Mode Doppler Measurement Value Normal Ranges Measurement Value Normal Ranges LVIDd 2D 3.9 3.5 - 5.6 cm ISABEL Vmax 2.7 cm2 LVIDs 2D 2.5 2.1 - 4.1 cm ISABEL VTI 3.0 cm2 FS 2D 36.7 % AV Mean Haresh 1.5 m/sec LVPWd 2D 1.2 0.6 - 1.1 cm AV Mean PG 11.0 mmHg IVSd 2D 1.0 0.6 - 1.1 cm AV Peak Haresh 2.1 m/sec IVS/LVPW 2D 0.8 AV Peak PG 18.0 mmHg AoR Diam 2D 3.5 2.0 - 3.7 cm AV VTI 41.2 cm LA/Ao 2D 1 0 - 1 AI Peak PG 48.0 mmHg EDV 2D 59.3 cm3 AI Peak Haresh 3.5 m/sec ESV 2D 15.1 cm3 AI PHT 405.0 msec LA Dimen 2D 4.1 2.3 - 4.0 cm LVOT Mean Haresh 1.1 m/sec LVOT Diam 2.0 cm LVOT Mean PG 7.0 mmHg LVOT Area 3.1 cm2 LVOT Peak Haresh 1.8 m/sec LVOT Peak PG 13.0 mmHg LVOT VTI 39.2 cm MV E Peak Haresh 0.9 m/sec MV A Peak Haresh 0.9 m/sec MV E/A 1.0 MV Decel Time 197 msec MV E/A 1.0 TR Peak Haresh 3.1 m/sec TR Peak PG 38.0 mmHg RVSP 43.0 mmHg Findings Left Ventricle: Normal left ventricular systolic function. Normal left ventricular cavity size. Left ventricular wall thickness upper limits of normal. Ejection fraction is visually estimated at 5560 %. Tissue Doppler/Mitral Doppler indices are consistent with impaired relaxation (Stage I diastolic dysfunction). Right Ventricle: Normal right ventricular size. Normal right ventricular systolic function. Left Atrium: There is mild enlargement of left atrium. Right Atrium: The right atrium is normal in size. Mitral Valve: Mitral valve leaflets appear mildly thickened. Mild mitral leaflet calcification. Mild mitral valve regurgitation. Aortic Valve: Normal appearance of the aortic valve. Aortic valve opens normally. Mild aortic valve regurgitation. Tricuspid Valve: Normal appearance of the tricuspid valve. Estimated peak PA systolic pressure 43 mmHg. There is mild tricuspid regurgitation. Pulmonic Valve: Normal pulmonic valve appearance. Pericardium: Normal pericardium with no significant pericardial effusion. Aorta: Normal aortic root. IVC: Normal size and normal respiratory collapse consistent with normal right atrial pressure. Conclusions 1.Normal left ventricular systolic function. Normal left ventricular cavity size. Left ventricular wall thickness upper limits of normal. Ejection fraction is visually estimated at 55-60 %. Tissue Doppler/Mitral Doppler indices are consistent with impaired relaxation (Stage I diastolic dysfunction). 2.There is mild enlargement of left atrium. 3.Mitral valve leaflets appear mildly thickened. Mild mitral leaflet calcification. Mild mitral valve regurgitation. 4.Normal appearance of the aortic valve. Aortic valve opens normally. Mild aortic valve regurgitation. 5.Normal appearance of the tricuspid valve. Estimated peak PA systolic pressure 43 mmHg. There is mild tricuspid regurgitation. Electronically Signed By: Flash Dodson 19-Dec-2016 18:18:32 -0700 Patient Name: HAYES LEOS Study Date: 19-Dec-2016 [id number]
[2016-12-19 19:51] VITALS: BP 140/68; RESP 20
[2016-12-19] MEDS: ATORVASTATIN 40 MG TAB PO SCH (20:25)
[2016-12-20 02:00] VITALS: BP 136/64; RESP 20
[2016-12-20] MEDS: morphine 4 MG/ML VIAL IV PRN ×6 (02:08→21:57)
[2016-12-20] MEDS: HYDROCODONE/APAP (5/325) TAB PO PRN ×2 (03:06→09:01)
[2016-12-20] MEDS: VANCOMYCIN 1 GM in NS 250 ML IVPB SCH ×2 (04:34→18:42)
[2016-12-20 06:37] LABS: CREATININE 0.76 mg/dl (0.61-1.24)
[2016-12-20] MEDS: FERROUS SULFATE (EC) 325 MG TAB PO SCH ×2 (08:24→20:13)
[2016-12-20] MEDS: BENAZEPRIL 40 MG TAB PO SCH (08:24)
[2016-12-20] MEDS: AMLODIPINE 10 MG TAB PO SCH (08:25)
[2016-12-20] MEDS: METOPROLOL 50 MG TAB PO SCH ×2 (08:25→20:14)
[2016-12-20] MEDS: NICOTINE (21 MG/24 HR) PATCH TRANSDERM SCH (08:25)
[2016-12-20] MEDS: ENOXAPARIN 40 MG/0.4 ML SYG SC SCH (08:32)
[2016-12-20] MEDS ORDERED: NICOTINE POLACRILEX 2 MG GUM BUCCAL PRN (09:30)
--- NOTE | 2016-12-20 09:38 | PN ---
Date/Time of Note Date/Time of Note DATE: 12/20/16 TIME: 09:31 Assessment/Plan VTE Prophylaxis VTE Prophylaxis Intervention: ambulation Lines/Catheters IV Catheter Type (from Nrs): Saline Lock Urinary Cath still in place: No Assessment/Plan Chief Complaint/Hosp Course Continue twice daily packing changes. Will follow labs and cultures. Possible OR procedure if no improvement. Continue broad spectrum antibiotics. MRI of posterior right flank an option as well to determine the extent of the fluid collection, but his shoulder arthroplasty will obscure the imaged. At this time I do no believe his shoulder joint and implant are involved, but will remain vigilant regarding this possibility. Problems: Subjective 24 Hr Interval Summary Free Text/Dictation No acute events overnight, vital signs stable. Patient is receiving twice daily packing changes after ER I&D. Continues to drain, but less. Exam/Review of Systems Vital Signs Vitals Vital Signs Date Time Temp Pulse Resp B/P Pulse Ox O2 Delivery O2 Flow Rate FiO2 12/20/16 02:00 99.6 80 20 136/64 95 12/18/16 21:23 Room Air Intake and Output 12/19/16 12/19/16 12/20/16 15:00 23:00 07:00 Intake Total 2050 ml 1050 ml Balance 2050 ml 1050 ml Exam Right shoulder posterior incision, packed with iodoform. Purulent material continues to express. Less fluctuance in the lateral muscle near triceps and distally. No pain or tenderness anterior or near other portals or incisions. Results Result Diagram: 12/19/16 0529 12/20/16 0509 Results 24 hrs Laboratory Tests Test 12/20/16 05:09 Blood Urea Nitrogen 18 Creatinine 0.76 Medications Medications Current Medications Acetaminophen (Tylenol Tab) 650 mg Q6H PRN PO PAIN LEVEL 1-3 OR FEVER; Start at 19:00 Acetaminophen/ Hydrocodone Bitart ([place] (5/325)) 1 tab Q6H PRN PO MODERATE PAIN LEVEL 4-6; Start 12/18/16 at 19:00 Acetaminophen/ Hydrocodone Bitart ([place] (5/325)) 2 tab Q6H PRN PO SEVERE PAIN LEVEL 7-10 Last administered on 12/20/16t 09:01; Admin Dose 2 TAB; Start at 19:00 Enoxaparin Sodium (Lovenox) 40 mg DAILY SC Last administered on 12/20/16 08:32 ; Admin Dose 40 MG; Start 12/19/16 at 09:00 Amlodipine Besylate (Norvasc) 10 mg DAILY PO Last administered on 12/20/16 08: 25; Admin Dose 10 MG; Start 12/19/16 at 09:00 Atorvastatin Calcium (Lipitor) 40 mg QHS PO Last administered on 12/19/16 20: 25; Admin Dose 40 MG; Start 12/18/16 at 21:00 Ferrous Sulfate (Ferrous Sulfate (Ec)) 325 mg BID PO Last administered on 08:24; Admin Dose 325 MG; Start 12/18/16 at 21:00 Metoprolol Tartrate (Lopressor) 50 mg BID PO Last administered on 12/20/16 08: 25; Admin Dose 50 MG; Start 12/18/16 at 21:00 Tramadol HCl 50 mg 50 mg Q6H PRN PO PAIN; Start 12/18/16 at 19:00 Vancomycin HCl (Vancocin) 250 ml @ 125 mls/hr Q12H IVPB Last administered on 04:34; Admin Dose 125 MLS/HR; Start 12/19/16 at 05:00 Benazepril HCl (Lotensin) 40 mg DAILY PO Last administered on 12/20/16 08:24; Admin Dose 40 MG; Start 12/19/16 at 09:00 Nicotine (Nicoderm 21 Mg/ 24hr) 1 patch DAILY TRANSDERM Last administered on 08:25; Admin Dose 1 PATCH; Start 12/20/16 at 09:00 Morphine Sulfate (morphine) 3 mg Q4H PRN IV SEVERE PAIN LEVEL 7-10 Last administered on 12/20/16 06:15; Admin Dose 3 MG; Start 12/19/16 at 14:30 Miscellaneous Information (*Rx Drug Level Order Reminder*) 1 ONCE ONCE XX ; Start 12/20/16 at 16:00; Stop 12/20/16 at 16:01 Nicotine Polacrilex (Nicorette) 2 mg Q2H PRN BUCCAL agitation; Start 12/20/16 at 09:30 SARANYA JONES MD Dec 20, 2016 09:38
--- NOTE | 2016-12-20 11:51 | PN ---
Date/Time of Note Date/Time of Note DATE: 12/20/16 TIME: 11:50 Assessment/Plan VTE Prophylaxis VTE Prophylaxis Intervention: SCD's Lines/Catheters IV Catheter Type (from Nrsg): Saline Lock Urinary Cath still in place: No Assessment/Plan Assessment/Plan 61 yo M here with wound infection, concern for PJI v cellulitis. Found to have SAureus bacteremia. plan Ortho following TTE without clear vegetation though mitral valve thickening. ID on consult cont vanc pending further culture data cont home meds may need washout given that abscess culture had SAureus NRT Exam/Review of Systems Vital Signs Vitals Vital Signs Date Time Temp Pulse Resp B/P Pulse Ox O2 Delivery O2 Flow Rate FiO2 12/20/16 02:00 99.6 80 20 136/64 95 12/18/16 21:23 Room Air Intake and Output 12/19/16 12/19/16 12/20/16 15:00 23:00 07:00 Intake Total 2050 ml 1050 ml Balance 2050 ml 1050 ml Results Result Diagram: 12/19/16 0529 12/20/16 0509 Results 24 hrs Laboratory Tests Test 12/20/16 05:09 Blood Urea Nitrogen 18 Creatinine 0.76 Medications Medications Current Medications Acetaminophen (Tylenol Tab) 650 mg Q6H PRN PO PAIN LEVEL 1-3 OR FEVER; Start at 19:00 Acetaminophen/ Hydrocodone Bitart ([place] (5/325)) 1 tab Q6H PRN PO MODERATE PAIN LEVEL 4-6; Start 12/18/16 at 19:00 Acetaminophen/ Hydrocodone Bitart ([place] (5/325)) 2 tab Q6H PRN PO SEVERE PAIN LEVEL 7-10 Last administered on 12/20/16 09:01; Admin Dose 2 TAB; Start at 19:00 Enoxaparin Sodium (Lovenox) 40 mg DAILY SC Last administered on 12/20/16 08:32 ; Admin Dose 40 MG; Start 12/19/16 at 09:00 Amlodipine Besylate (Norvasc) 10 mg DAILY PO Last administered on 12/20/16 08: 25; Admin Dose 10 MG; Start 12/19/16 at 09:00 Atorvastatin Calcium (Lipitor) 40 mg QHS PO Last administered on 12/19/16 20: 25; Admin Dose 40 MG; Start 12/18/16 at 21:00 Ferrous Sulfate (Ferrous Sulfate (Ec)) 325 mg BID PO Last administered on 08:24; Admin Dose 325 MG; Start 12/18/16 at 21:00 Metoprolol Tartrate (Lopressor) 50 mg BID PO Last administered on 12/20/16 08: 25; Admin Dose 50 MG; Start 12/18/16 at 21:00 Tramadol HCl 50 mg 50 mg Q6H PRN PO PAIN; Start 12/18/16 at 19:00 Vancomycin HCl (Vancocin) 250 ml @ 125 mls/hr Q12H IVPB Last administered on 04:34; Admin Dose 125 MLS/HR; Start 12/19/16 at 05:00 Benazepril HCl (Lotensin) 40 mg DAILY PO Last administered on 12/20/16 08:24; Admin Dose 40 MG; Start 12/19/16 at 09:00 Nicotine (Nicoderm 21 Mg/ 24hr) 1 patch DAILY TRANSDERM Last administered on 08:25; Admin Dose 1 PATCH; Start 12/20/16 at 09:00 Miscellaneous Information (*Rx Drug Level Order Reminder*) 1 ONCE ONCE XX ; Start 12/20/16 at 16:00; Stop 12/20/16 at 16:01 Nicotine Polacrilex (Nicorette) 2 mg Q2H PRN BUCCAL agitation; Start 12/20/16 at 09:30 Acetaminophen/ Hydrocodone Bitart ([place] (10/325)) 1 tab Q4H PRN GTB pain; Start 12/20/16 at 10:00 Morphine Sulfate (morphine) 3 mg Q3H PRN IV SEVERE PAIN LEVEL 7-10 Last administered on 12/20/16 11:25; Admin Dose 3 MG; Start 12/20/16 at 11:00 DOROTHY BRYSON MD Dec 20, 2016 11:51
[2016-12-20] MEDS ORDERED: morphine 4 MG/ML VIAL IV PRN (12:30)
[2016-12-20 14:37] VITALS: BP 163/81; RESP 18
[2016-12-20] MEDS: HYDROCODONE/APAP (10/325) TAB GTB PRN ×2 (16:59→20:38)
--- NOTE | 2016-12-20 19:48 | CONS ---
DATE OF ADMISSION: 12/18/2016 DATE OF CONSULTATION: 12/20/2016 INFECTIOUS CONSULTATION REASON FOR CONSULTATION: Antibiotic management. HISTORY OF PRESENT ILLNESS: Al Garnett is a 61-year-old male with a number of problems who comes in now with wound infection and is being seen for antibiotic management. His past problems include: 1. Hypertension. 2. Hyperlipidemia. 3. SHIRA. 4. History of bilateral shoulder replacement with most recent surgical intervention 1 month ago. Patient presents with right shoulder wound. A few weeks ago, he had right shoulder pain and had an orthopedic evaluation concerning loosening of the glenoid part of his prosthesis. On 11/28/2016, he underwent right total shoulder arthroplasty with loose body removal. The loose body was noted to be outside of the actual joint space and was retrieved from under the skin. The patient then missed his follow-up clinic appointment, was seen on the day prior to admission and noted to have redness and purulence draining from his right shoulder. This was cultured in the clinic. HOSPITAL COURSE: On admission, his white count was 17.2, hemoglobin 13.3, hematocrit 40.2, platelet count 301,000. BUN 22 and creatinine 0.96. The shoulder x-ray showed a right shoulder arthroplasty without evidence of hardware complications, edema, and questionable subcutaneous emphysema within the deltoid soft tissues, suspicious for cellulitis. Post contrast CT may be helpful for further evaluation. His blood cultures grew out Staphylococcus aureus, and his Gram stain grew out Staphylococcus aureus. The patient had, I believe, an I and D of the shoulder, and he has his twice daily packing. He had some cleaning of the shoulder at the bedside and possible OR procedure if no improvement. MRI of the posterior right flank is also an option as well to determine the extent of the fluid collection. Regardless, his shoulder is purulent and continues to express material with fluctuance in the lateral muscle in the triceps distally. His white count today is 18.4. A TTE was done transthoracic without clear vegetations, so there is mitral valve thickening. The patient is currently on vancomycin. PAST MEDICAL HISTORY: Operations as outlined. FAMILY HISTORY: Noncontributory. SOCIAL HISTORY: He does not smoke, drink, or abuse drugs. ALLERGIES: NONE TO PENICILLIN, SULFA, OR FOODS. MEDICATION: Per chart. REVIEW OF SYSTEMS: Noncontributory. PHYSICAL EXAMINATION: GENERAL: Patient is a well-developed, well-nourished male, alert, responsive, in no acute distress. VITAL SIGNS: Stable. He is afebrile. T-max 99. SKIN: Without generalized rash. He has some erythema around the right shoulder. HEENT: Within normal limits. NECK: Supple. Lymph nodes nonpalpable. CHEST: Decreased breath sounds at the bases. HEART: Without murmur or gallop. ABDOMEN: Soft, nontender, without organosplenomegaly or masses. EXTREMITIES: Without cyanosis, clubbing, or edema. His shoulder has a 4 cm incision at the lateral aspect and 5 cm surrounding erythema and induration on both sides with purulent drainage. RECTAL/GENITAL: Exams deferred. NEUROLOGICAL: No focal neurological abnormalities. IMPRESSION AND PLAN: Patient has an infected shoulder prosthesis, it appears, and will probably need removal of the prosthesis with a spacer to be placed. We will continue him on vancomycin. We will consider adding rifampin to his regimen. I will dictate my findings to the hospitalists. Dictated By: Pieter Moore MD JD/thomas/asiya /Document#: [id number]
[2016-12-20 20:00] VITALS: BP 165/82; PULSE 93; RESP 18
[2016-12-20] MEDS: ATORVASTATIN 40 MG TAB PO SCH (20:13)
[2016-12-20] MEDS ORDERED: ZOLPIDEM 5 MG TAB PO PRN (22:30)
[2016-12-21] VITALS (12 sets, daily range): BP systolic 118–179; BP diastolic 60–104; PULSE 82–104; RESP 14–23
[2016-12-21] MEDS ORDERED: VANCOMYCIN 1.25 GM in SOD CHLORIDE 0.9% 250 ML IVPB SCH (04:00)
[2016-12-21] MEDS: morphine 4 MG/ML VIAL IV PRN ×5 (05:32→21:26)
[2016-12-21] MEDS: NICOTINE (21 MG/24 HR) PATCH TRANSDERM SCH (08:40)
[2016-12-21] MEDS: ENOXAPARIN 40 MG/0.4 ML SYG SC SCH (08:40)
[2016-12-21] MEDS: FERROUS SULFATE (EC) 325 MG TAB PO SCH ×2 (08:40→20:04)
[2016-12-21] MEDS: BENAZEPRIL 40 MG TAB PO SCH (09:00)
[2016-12-21] MEDS: AMLODIPINE 10 MG TAB PO SCH (09:00)
[2016-12-21] MEDS: METOPROLOL 50 MG TAB PO SCH ×2 (09:00→20:05)
[2016-12-21] MEDS ORDERED: PROPOFOL 20 ML ONE (09:15)
[2016-12-21] MEDS ORDERED: SUCCINYLCHOLINE CHLORIDE 100 MG/5 ML SYG IV ONE (09:15)
[2016-12-21] MEDS ORDERED: FENTAnyl 50 MCG/ML VIAL ONE (09:15)
[2016-12-21] MEDS ORDERED: LIDOCAINE 2% (SDV) 5 ML INJ ONE (09:15)
[2016-12-21] MEDS ORDERED: MIDAZOLAM 1 MG/ML 2 ML INJ ONE (09:15)
--- NOTE | 2016-12-21 09:46 | HPN ---
Date/Time of Note Date/Time of Note DATE: 12/21/16 TIME: 09:46 Interval H&P Admission Note Pt. seen H&P reviewed: No system changes SARANYA JONES MD Dec 21, 2016 09:46
[2016-12-21] MEDS ORDERED: METOCLOPRAMIDE 10 MG INJ ONE (10:01)
[2016-12-21] MEDS ORDERED: ONDANSETRON 4 MG INJ ONE (10:01)
[2016-12-21] MEDS ORDERED: ACETAMINOPHEN 1000MG/100ML IV 100 ML ONE (10:18)
--- NOTE | 2016-12-21 10:37 | SIPON ---
Date/Time of Note Date/Time of Note DATE: 12/21/16 TIME: 10:35 Operative Report Preoperative Diagnosis Right posterior shoulder/flank deep space infection. Postoperative Diagnosis Right posterior shoulder/flank deep space infection. Operation/Procedure Performed 1) Irrigation and Debridement of Right Posterior Shoulder Wound, Deep, 2) Application of Negative Pressure Wound Vac, < 50 scm, 3) Arthrocentesis of right anterior shoulder Surgeon see signature line autopsy assistant None Anesthesia: general Estimated blood loss: minimal Transfusion Required none Specimen Culture of wound Grafts/Implants none Complications none SARANYA JONES MD Dec 21, 2016 10:37
[2016-12-21] MEDS ORDERED: ALBUTEROL 0.5% (NEB) 2.5 MG/0.5 ML AMP ONE (10:38)
[2016-12-21] MEDS ORDERED: hydrALAzine 20 MG INJ ONE (10:57)
[2016-12-21] MEDS ORDERED: KETOROLAC 30 MG INJ ONE (10:57)
[2016-12-21] MEDS ORDERED: LABETALOL HCL 20MG INJ IV PRN (11:00)
[2016-12-21] MEDS ORDERED: FENTAnyl 50 MCG/ML VIAL IV PRN (11:00)
[2016-12-21] MEDS ORDERED: DIPHENHYDRAMINE 50 MG INJ IV PRN (11:00)
[2016-12-21] MEDS ORDERED: HYDROmorphONE (0.2 MG/ML) 10ML SYG IV PRN ×2 (11:00)
[2016-12-21] MEDS ORDERED: KETOROLAC 30 MG INJ IV PRN (11:00)
[2016-12-21] MEDS ORDERED: hydrALAzine 20 MG INJ IV PRN (11:00)
[2016-12-21] MEDS ORDERED: MEPERIDINE 25 MG INJ IV PRN (11:00)
[2016-12-21] MEDS ORDERED: PROCHLORPERAZINE 10 MG INJ IV PRN (11:00)
[2016-12-21] MEDS ORDERED: ONDANSETRON 4 MG INJ IV PRN (11:00)
[2016-12-21] MEDS ORDERED: ALBUTEROL 0.083% (NEB) 2.5 MG/3 ML AMP HHN PRN (11:00)
[2016-12-21] MEDS ORDERED: IPRATROPIUM (NEB) 0.5 MG/2.5 ML AMP HHN PRN (11:00)
--- NOTE | 2016-12-21 12:44 | PN ---
Date/Time of Note Date/Time of Note DATE: 12/21/16 TIME: 12:43 Assessment/Plan VTE Prophylaxis VTE Prophylaxis Intervention: SCD's Lines/Catheters IV Catheter Type (from Nrsg): Peripheral IV Urinary Cath still in place: No Assessment/Plan Assessment/Plan 61 yo M here with wound infection, concern for prosthetic joint infection v wound infection Found to have SAureus bacteremia. sp I&D, wound vac placement and arthrocentesis 12.21 plan Ortho following. await joint washout cultures. TTE without clear vegetation though mitral valve thickening. ID on consult changed abx from vanc to ancef given MSSA cont home meds NRT Subjective 24 Hr Interval Summary Free Text/Dictation Pt at procedure at time of my attempted eval Exam/Review of Systems Vital Signs Vitals Vital Signs Date Time Temp Pulse Resp B/P Pulse Ox O2 Delivery O2 Flow Rate FiO2 12/21/16 11:54 Nasal Cannula 2.0 12/21/16 11:38 94 16 147/73 97 12/21/16 10:58 97.9 Intake and Output 12/20/16 12/20/16 12/21/16 15:00 23:00 07:00 Intake Total 2370 ml 180 ml Balance 2370 ml 180 ml Exam Pt at procedure at time of my attempted eval Results Result Diagram: 12/19/16 0529 12/20/16 0509 Results 24 hrs Laboratory Tests Test 12/20/16 17:06 Vancomycin Level Trough 9.1 L Medications Medications Current Medications Acetaminophen (Tylenol Tab) 650 mg Q6H PRN PO PAIN LEVEL 1-3 OR FEVER; Start at 19:00 Acetaminophen/ Hydrocodone Bitart ([place] (5/325)) 1 tab Q6H PRN PO MODERATE PAIN LEVEL 4-6; Start 12/18/16 at 19:00 Acetaminophen/ Hydrocodone Bitart ([place] (5/325)) 2 tab Q6H PRN PO SEVERE PAIN LEVEL 7-10 Last administered on 12/20/16 09:01; Admin Dose 2 TAB; Start at 19:00 Enoxaparin Sodium (Lovenox) 40 mg DAILY SC Last administered on 12/20/16 08:32 ; Admin Dose 40 MG; Start 12/19/16 at 09:00 Amlodipine Besylate (Norvasc) 10 mg DAILY PO Last administered on 12/20/16 08: 25; Admin Dose 10 MG; Start 12/19/16 at 09:00 Atorvastatin Calcium (Lipitor) 40 mg QHS PO Last administered on 12/20/16 20: 13; Admin Dose 40 MG; Start 12/18/16 at 21:00 Ferrous Sulfate (Ferrous Sulfate (Ec)) 325 mg BID PO Last administered on 20:13; Admin Dose 325 MG; Start 12/18/16 at 21:00 Metoprolol Tartrate (Lopressor) 50 mg BID PO Last administered on 12/20/16 20: 14; Admin Dose 50 MG; Start 12/18/16 at 21:00 Tramadol HCl ([place]) 50 mg Q6H PRN PO PAIN; Start 12/18/16 at 19:00 Benazepril HCl (Lotensin) 40 mg DAILY PO Last administered on 12/20/16 08:24; Admin Dose 40 MG; Start 12/19/16 at 09:00 Nicotine (Nicoderm 21 Mg/ 24hr) 1 patch DAILY TRANSDERM Last administered on 08:40; Admin Dose 1 PATCH; Start 12/20/16 at 09:00 Nicotine Polacrilex (Nicorette) 2 mg Q2H PRN BUCCAL agitation; Start 12/20/16 at 09:30 Acetaminophen/ Hydrocodone Bitart ([place] (10/325)) 1 tab Q4H PRN GTB pain Last administered on 12/20/16 20:38; Admin Dose 1 TAB; Start 12/20/16 at 10:00 Morphine Sulfate (morphine) 3 mg Q3H PRN IV SEVERE PAIN LEVEL 7-10 Last administered on 12/21/16 08:41; Admin Dose 3 MG; Start 12/20/16 at 11:00 DOROTHY BRYSON MD Dec 21, 2016 12:44
[2016-12-21] MEDS ORDERED: CEFAZOLIN 1 GM/50 ML (PMX) 50 ML IVPB SCH (14:00)
--- NOTE | 2016-12-21 15:18 | PN ---
DATE: 12/21/2016 SUBJECTIVE DATA: Patient is alert, feels better, looks comfortable. No fevers. LABORATORY AND DIAGNOSTIC DATA: No labs this morning. MICROBIOLOGY: Blood culture on admission grew oxacillin sensitive Staph aureus. Wound culture grew oxacillin sensitive Staph aureus. Repeat blood cultures negative. ANTIMICROBIALS: The patient is on Ancef. ALLERGIES: THE PATIENT IS ALLERGIC TO: PENICILLIN. SULFA. PHYSICAL EXAMINATION: GENERAL: This is well nourished, well developed, middle-aged white man, who is alert, in no distress. HEENT: Head atraumatic, normocephalic. Sclerae anicteric. Buccal mucosa pink. NECK: Supple. CHEST: Rise symmetrical. Breath sounds clear. HEART: S1, S2. ABDOMEN: Soft, bowel sounds present. EXTREMITIES: Without cyanosis. SKIN: With right upper back wound to wound VAC. No erythema around the edges. ASSESSMENT: 1. Oxacillin-sensitive Staphylococcus aureus bacteremia secondary to infected wound, status post incision and drainage with wound vacuum-assisted closure application. 2. Allergy to sulfa and penicillin. PLAN: We are going to change Ancef to Rocephin. Continue local wound care as per surgical recommendations. Of note, patient has 2D echo on admission that revealed no vegetations. Dictated By: Natalee Mccartney NP /thomas/melania /Document#: [id number] CARLOS ENRIQUE
[2016-12-21] MEDS: CEFTRIAXONE 1 GM/50 ML (PMX) 50 ML IVPB SCH (16:01)
--- NOTE | 2016-12-21 18:40 | OPR ---
DATE OF OPERATION: 12/21/2016 SURGEON: Dr. Roland Casillas. ANESTHESIOLOGIST: Dr. Quarles. ANESTHESIA: General. PREOPERATIVE DIAGNOSIS: Right posterior shoulder flank wound deep infection. POSTOPERATIVE DIAGNOSIS: Right posterior shoulder flank wound deep infection. SURGICAL PROCEDURES: 1. Irrigation and debridement of right posterior flank wound subcutaneous tissue muscle. 2. Application of negative pressure wound vac therapy less than 50 square cm. 3. Arthrocentesis of anterior glenohumeral joint. 4. Specimen and culture. ESTIMATED BLOOD LOSS: Minimal. COMPLICATIONS: None. INDICATION: Al is a patient who is a 61-year-old with bilateral shoulder arthroplasty who recently underwent an arthroscopy of the right shoulder, arthroplasty, as well as excision of loose glenoid polythene component. Surgery was uneventful, but the patient was lost to followup and finally locating the patient, the patient returned with an infection of the incision for the right posterior glenoid wound. The patient was admitted to the hospital and underwent irrigation and debridement in the emergency room, as well as on the floor due to the growth of staph aureus bacteria. Failure to advance with nonoperative treatment, it was decided to perform formal irrigation and debridement in the operating room. After risks and benefits of surgery including pain, bleeding, infection, scar, damage to neurovascular structures, failure for the surgery to work, blood clots to the upper extremities, lower extremities, pulmonary embolism, anesthesia, or were explained to the patient. He elected to proceed. PROCEDURE IN DETAIL: The patient was marked and identified in preoperative holding. He was brought to the operating room and placed supine on the regular operating room table and placed under general anesthesia. He was then placed in the lateral decubitus position and while prepping his anterior shoulder and after a timeout was performed a needle was introduced into the glenohumeral space through a sterile window. There is previous incisions with needle contacts to the metal with an indistinguishable sensation and arthrocentesis was performed here. There was no fluid in the glenohumeral joint and there was aspiration of no fluid from this area. Attention was now turned to the posterior flank where previous packing was removed and the area was prepped with wet Betadine prep and irrigation and debridement with 9 liters of normal saline was initiated here with slow cystotubing irrigation. Curettage and blunt instrumentation was used to perform this debridement of subcutaneous tissue and muscle. Upon conclusion of the flow of irrigation the wound was thoroughly inspected to determine if there was any further sinuses or tracts or any communication with the glenohumeral joint. At this time consistent with our preoperative assessment there does not appear to be a communication with the glenohumeral joint itself but rather isolated pocket posteriorly and outside the joint. Cultures were taken at this time. Cultures were not taken prior as to the known bacteria that has already been identified and silver antibiotic sponge for the wound vac was fashioned approximately 3 cm by 2 cm by 2 cm and placed within the wound and tape was applied and the wound vac was attached to the suction device and found to be in good seal. Drapes were removed and the patient was extubated in the operating room in good condition. It is also to be noted that in the positioning and draping of the patient several cigarettes and switchboard manager was found upon the patient's person, these were placed in the patient's chart and given to the circulating nurse to manage accordingly. PLAN: Our postoperative plan will be to likely repeat irrigation and debridement 2 days from now. It is still our assessment based off all the available information that there is no infection in the glenohumeral joint, however, should this in turn not be the case then the patient will require extensive removal of the prosthesis and placement of antibiotic spacers, however, the evidence does not point towards that and we will follow his progress for this isolated posterior wound. Imaging is an option should he fail to respond to this operative procedure. He will remain on antibiotics with the Hospitalist Service and Infectious Disease Service in coexistence which I thank them for. Dictated By: Roland Casillas MD /[email or web address] [email or web address] /Document#: [id number]
[2016-12-21] MEDS: ATORVASTATIN 40 MG TAB PO SCH (20:03)
[2016-12-21] MEDS: HYDROCODONE/APAP (10/325) TAB GTB PRN (20:04)
[2016-12-22] MEDS: morphine 4 MG/ML VIAL IV PRN ×6 (00:22→19:52)
[2016-12-22] MEDS: HYDROCODONE/APAP (10/325) TAB GTB PRN ×5 (01:50→22:13)
[2016-12-22 02:07] VITALS: BP 134/65; RESP 20
[2016-12-22 07:31] VITALS: BP 143/85; RESP 18
--- NOTE | 2016-12-22 08:39 | RADRPT ---
Vent Rate: 85 bpm RR Interval: 0 msec CO Interval: 136 msec QRS Duration: 100 msec QT Interval: 372 msec QTC Interval: 442 msec P-R-T [place]: 67 - 78 - 70 degrees Normal sinus rhythm Possible Left atrial enlargement Borderline ECG Electronically Signed By: Francisco Olivera [id number]
[2016-12-22] MEDS: BENAZEPRIL 40 MG TAB PO SCH (08:42)
[2016-12-22] MEDS: FERROUS SULFATE (EC) 325 MG TAB PO SCH ×2 (08:43→20:25)
[2016-12-22] MEDS: METOPROLOL 50 MG TAB PO SCH ×2 (08:43→20:26)
[2016-12-22] MEDS: AMLODIPINE 10 MG TAB PO SCH (08:43)
[2016-12-22] MEDS: NICOTINE (21 MG/24 HR) PATCH TRANSDERM SCH (08:43)
[2016-12-22] MEDS: ENOXAPARIN 40 MG/0.4 ML SYG SC SCH (09:21)
--- NOTE | 2016-12-22 12:03 | PN ---
Date/Time of Note Date/Time of Note DATE: 12/22/16 TIME: 11:54 Assessment/Plan VTE Prophylaxis VTE Prophylaxis Intervention: LMWH Lines/Catheters IV [facility] Saline Lock Urinary Cath still in place: No Assessment/Plan Chief Complaint/Hosp Course Assessment/Plan: 61 yo M here with wound infection, concern for prosthetic joint infection v wound infection Found to have S Aureus bacteremia. sp I&D x 2 this admission, now with wound vac placement (and arthrocentesis 12.21) PLAN: - Ortho following -follow-up final joint washout culture results, continue Rocephin antibiotic per infectious disease recommendations as the blood cultures and wound culture are positive for MSSA. Per discussion with orthopedic surgery team today, patient for another washout procedure tomorrow, follow-up postop recommendations from that as well. - Of note, TTE was without clear vegetation though mitral valve thickening. ID on consult - cont home meds for patient's hypertension and high cholesterol. - Counseled on smoking cessation. Continue nicotine patch as well -We will also get case management consult regarding possible placement needs Problems: Subjective 24 Hr Interval Summary Free Text/Dictation Patient had I+D of right shoulder performed yesterday, as well as arthrocentesis. No acute events overnight. Exam/Review of Systems Vital Signs Vitals Vital Signs Date Time Temp Pulse Resp B/P Pulse Ox O2 Delivery O2 Flow Rate FiO2 12/22/16 07:31 98.1 85 18 143/85 95 12/21/16 11:54 Nasal Cannula 2.0 Intake and Output 12/21/16 12/21/16 12/22/16 15:00 23:00 07:00 Intake Total 420 ml 1000 ml 950 ml Output Total 733 ml 50 ml 20 ml Balance -313 ml 950 ml 930 ml Exam Standing up in [place] talking to orthopedic surgery team Nad EOMI R shoulder with 4 cm incision at lateral aspect, +.5cm with some surrounding erythema and induration on both sides no mrg lungs clear abd soft no rashes Results Result Diagram: 12/19/16 0529 12/20/16 0509 Medications Medications Current Medications Acetaminophen (Tylenol Tab) 650 mg Q6H PRN PO PAIN LEVEL 1-3 OR FEVER; Start at 19:00 Acetaminophen/ Hydrocodone Bitart ([place] (5/325)) 1 tab Q6H PRN PO MODERATE PAIN LEVEL 4-6; Start 12/18/16 at 19:00 Acetaminophen/ Hydrocodone Bitart ([place] (5/325)) 2 tab Q6H PRN PO SEVERE PAIN LEVEL 7-10 Last administered on 12/20/16 09:01; Admin Dose 2 TAB; Start at 19:00 Enoxaparin Sodium (Lovenox) 40 mg DAILY SC Last administered on 12/22/16 09:21 ; Admin Dose 40 MG; Start 12/19/16 at 09:00 Amlodipine Besylate (Norvasc) 10 mg DAILY PO Last administered on 12/22/16 08: 43; Admin Dose 10 MG; Start 12/19/16 at 09:00 Atorvastatin Calcium (Lipitor) 40 mg QHS PO Last administered on 12/21/16 20: 03; Admin Dose 40 MG; Start 12/18/16 at 21:00 Ferrous Sulfate (Ferrous Sulfate (Ec)) 325 mg BID PO Last administered on 08:43; Admin Dose 325 MG; Start 12/18/16 at 21:00 Metoprolol Tartrate (Lopressor) 50 mg BID PO Last administered on 12/22/16 08: 43; Admin Dose 50 MG; Start 12/18/16 at 21:00 Tramadol HCl (Ultram) 50 mg Q6H PRN PO PAIN; Start 12/18/16 at 19:00 Benazepril HCl (Lotensin) 40 mg DAILY PO Last administered on 12/22/16 08:42; Admin Dose 40 MG; Start 12/19/16 at 09:00 Nicotine (Nicoderm 21 Mg/ 24hr) 1 patch DAILY TRANSDERM Last administered on 08:43; Admin Dose 1 PATCH; Start 12/20/16 at 09:00 Nicotine Polacrilex (Nicorette) 2 mg Q2H PRN BUCCAL agitation; Start 12/20/16 at 09:30 Acetaminophen/ Hydrocodone Bitart ([place] (10/325)) 1 tab Q4H PRN GTB pain Last administered on 12/22/16 10:34; Admin Dose 1 TAB; Start 12/20/16 at 10:00 Morphine Sulfate 3 mg 3 mg Q3H PRN IV SEVERE PAIN LEVEL 7-10 Last administered on 12/22/16 08:43; Admin Dose 3 MG; Start 12/20/16 at 11:00 Ceftriaxone Sodium (Rocephin) 50 ml @ 100 mls/hr Q24H IVPB Last administered on 12/21/16 16:01; Admin Dose 100 MLS/HR; Start 12/21/16 at 15:00 ANDRES TRAN Dec 22, 2016 12:03
[2016-12-22 14:00] VITALS: BP 160/67; RESP 18
[2016-12-22] MEDS: CEFTRIAXONE 1 GM/50 ML (PMX) 50 ML IVPB SCH (15:22)
--- NOTE | 2016-12-22 16:23 | CONS ---
Date/Time of Note Date/Time of Note DATE: 12/22/16 TIME: 16:12 Consultation Date/Type/Reason Admit Date/Time Dec 18, 2016 at 17:39 Initial Consult Date SUBJECTIVE DATA: 61 y/o male being treated for Rt shoulder infected, non- healing wound. S/O surgical debridement and wound VAC placement. Patient is alert, feels better, looks comfortable. No fevers. VS: Stable. LABORATORY: No labs this morning. MICROBIOLOGY: Blood culture on admission grew oxacillin sensitive Staph aureus. Wound culture grew oxacillin sensitive Staph aureus. Repeat blood cultures negative. FUNGAL CULTURE Preliminary MYCOLOGY CULTURES ARE HELD 4 TO 6 WEEKS. ANY SIGNIFICANT GROWTH WILL BE REPORTED WHEN DETECTED. INTERIM REPORTS ARE NOT ISSUED. ACID FAST BACILLI- NONE SEEN ANTIMICROBIALS: Rocephin IV ALLERGIES: THE PATIENT IS ALLERGIC TO: PENICILLIN. SULFA. PHYSICAL EXAMINATION: GENERAL: This is well nourished, well developed, middle-aged white man, who is alert, in no distress. HEENT: Head atraumatic, normocephalic. Sclerae anicteric. Buccal mucosa pink. NECK: Supple. CHEST: Rise symmetrical. Breath sounds clear. HEART: S1, S2. ABDOMEN: Soft, bowel sounds present. EXTREMITIES: Without cyanosis. SKIN: With right upper back wound to wound VAC. No erythema around the edges. ASSESSMENT: 1. Oxacillin-sensitive Staphylococcus aureus bacteremia secondary to infected wound, status post incision and drainage with wound vacuum-assisted closure application. 2. Allergy to sulfa and penicillin. PLAN: Continue IV Rocephin and pain management. Continue local wound care. Pt on Wound VAC. Anticipate change to PO Cipro when ready for D/C to complete 2wks of Antbx treatment. Exam/Review of Systems Vital Signs Vitals Vital Signs Date Time Temp Pulse Resp B/P Pulse Ox O2 Delivery O2 Flow Rate FiO2 12/22/16 07:31 98.1 85 18 143/85 95 12/21/16 11:54 Nasal Cannula 2.0 Intake and Output 12/21/16 12/21/16 12/22/16 15:00 23:00 07:00 Intake Total 420 ml 1000 ml 950 ml Output Total 733 ml 50 ml 20 ml Balance -313 ml 950 ml 930 ml Results Result Diagram: 12/19/16 0529 12/20/16 0509 Medications Medications Current Medications Acetaminophen (Tylenol Tab) 650 mg Q6H PRN PO PAIN LEVEL 1-3 OR FEVER; Start at 19:00 Acetaminophen/ Hydrocodone Bitart ([place] (5/325)) 1 tab Q6H PRN PO MODERATE PAIN LEVEL 4-6; Start 12/18/16 at 19:00 Acetaminophen/ Hydrocodone Bitart ([place] (5/325)) 2 tab Q6H PRN PO SEVERE PAIN LEVEL 7-10 Last administered on 12/20/16 09:01; Admin Dose 2 TAB; Start at 19:00 Enoxaparin Sodium (Lovenox) 40 mg DAILY SC Last administered on 12/22/16 09:21 ; Admin Dose 40 MG; Start 12/19/16 at 09:00; Status Future Hold Amlodipine Besylate (Norvasc) 10 mg DAILY PO Last administered on 12/22/16 08: 43; Admin Dose 10 MG; Start 12/19/16 at 09:00 Atorvastatin Calcium (Lipitor) 40 mg QHS PO Last administered on 12/21/16 20: 03; Admin Dose 40 MG; Start 12/18/16 at 21:00 Ferrous Sulfate (Ferrous Sulfate (Ec)) 325 mg BID PO Last administered on 08:43; Admin Dose 325 MG; Start 12/18/16 at 21:00 Metoprolol Tartrate (Lopressor) 50 mg BID PO Last administered on 12/22/16 08: 43; Admin Dose 50 MG; Start 12/18/16 at 21:00 Tramadol HCl (Ultram) 50 mg Q6H PRN PO PAIN; Start 12/18/16 at 19:00 Benazepril HCl (Lotensin) 40 mg DAILY PO Last administered on 12/22/16 08:42; Admin Dose 40 MG; Start 12/19/16 at 09:00 Nicotine (Nicoderm 21 Mg/ 24hr) 1 patch DAILY TRANSDERM Last administered on 08:43; Admin Dose 1 PATCH; Start 12/20/16 at 09:00 Nicotine Polacrilex (Nicorette) 2 mg Q2H PRN BUCCAL agitation; Start 12/20/16 at 09:30 Acetaminophen/ Hydrocodone Bitart ([place] (10/325)) 1 tab Q4H PRN GTB pain Last administered on 12/22/16 10:34; Admin Dose 1 TAB; Start 12/20/16 at 10:00 Morphine Sulfate 3 mg 3 mg Q3H PRN IV SEVERE PAIN LEVEL 7-10 Last administered on 12/22/16 15:22; Admin Dose 3 MG; Start 12/20/16 at 11:00 Ceftriaxone Sodium (Rocephin) 50 ml @ 100 mls/hr Q24H IVPB Last administered on 12/22/16 15:22; Admin Dose 100 MLS/HR; Start 12/21/16 at 15:00 HOLGER GILES Dec 22, 2016 16:22
[2016-12-22 19:37] VITALS: BP 163/77; RESP 20
[2016-12-22] MEDS: ATORVASTATIN 40 MG TAB PO SCH (20:25)
--- NOTE | 2016-12-22 20:25 | PN ---
Date/Time of Note Date/Time of Note DATE: 12/22/16 TIME: 20:21 Assessment/Plan VTE Prophylaxis VTE Prophylaxis Intervention: ambulation Lines/Catheters IV Catheter Type (from Nrs): Saline Lock Urinary Cath still in place: No Assessment/Plan Chief Complaint/Hosp Course Continue twice daily packing changes. Will follow labs and cultures. Possible OR procedure if no improvement. Continue broad spectrum antibiotics. MRI of posterior right flank an option as well to determine the extent of the fluid collection, but his shoulder arthroplasty will obscure the imaged. At this time I do no believe his shoulder joint and implant are involved, but will remain vigilant regarding this possibility. Problems: Assessment/Plan Will plan for return to OR Thursday for repeat I&D and Wound Vac change. Hopefully this will be last OR trip needed and further wound vac changes may happen on floor or at home. This will depend o on the appearance of the wound during surgery, but currently all signs are positive. Subjective 24 Hr Interval Summary Free Text/Dictation No acute events overnight. Wound vac was placed yesterday. POD #1 Exam/Review of Systems Vital Signs Vitals Vital Signs Date Time Temp Pulse Resp B/P Pulse Ox O2 Delivery O2 Flow Rate FiO2 12/22/16 19:37 99.4 88 20 163/77 94 12/21/16 11:54 Nasal Cannula 2.0 Intake and Output 12/21/16 12/21/16 12/22/16 15:00 23:00 07:00 Intake Total 420 ml 1000 ml 950 ml Output Total 733 ml 50 ml 20 ml Balance -313 ml 950 ml 930 ml Exam Right posterior shoulder/flank wound vac is c/d/i. ROM of shoulder is baseline, NVI. Output to woundvac is trace SS fluid, blood tinged. No purulence. Results Result Diagram: 12/19/16 0529 12/20/16 0509 Medications Medications Current Medications Acetaminophen (Tylenol Tab) 650 mg Q6H PRN PO PAIN LEVEL 1-3 OR FEVER; Start at 19:00 Acetaminophen/ Hydrocodone Bitart ([place] (5/325)) 1 tab Q6H PRN PO MODERATE PAIN LEVEL 4-6; Start 12/18/16 at 19:00 Acetaminophen/ Hydrocodone Bitart ([place] (5/325)) 2 tab Q6H PRN PO SEVERE PAIN LEVEL 7-10 Last administered on 12/20/16 09:01; Admin Dose 2 TAB; Start at 19:00 Enoxaparin Sodium (Lovenox) 40 mg DAILY SC Last administered on 12/22/16 09:21 ; Admin Dose 40 MG; Start 12/19/16 at 09:00; Status Future Hold Amlodipine Besylate (Norvasc) 10 mg DAILY PO Last administered on 12/22/16 08: 43; Admin Dose 10 MG; Start 12/19/16 at 09:00 Atorvastatin Calcium (Lipitor) 40 mg QHS PO Last administered on 12/21/16 20: 03; Admin Dose 40 MG; Start 12/18/16 at 21:00 Ferrous Sulfate (Ferrous Sulfate (Ec)) 325 mg BID PO Last administered on 08:43; Admin Dose 325 MG; Start 12/18/16 at 21:00 Metoprolol Tartrate (Lopressor) 50 mg BID PO Last administered on 12/22/16 08: 43; Admin Dose 50 MG; Start 12/18/16 at 21:00 Tramadol HCl (Ultram) 50 mg Q6H PRN PO PAIN; Start 12/18/16 at 19:00 Benazepril HCl (Lotensin) 40 mg DAILY PO Last administered on 12/22/16 08:42; Admin Dose 40 MG; Start 12/19/16 at 09:00 Nicotine (Nicoderm 21 Mg/ 24hr) 1 patch DAILY TRANSDERM Last administered on 08:43; Admin Dose 1 PATCH; Start 12/20/16 at 09:00 Nicotine Polacrilex (Nicorette) 2 mg Q2H PRN BUCCAL agitation; Start 12/20/16 at 09:30 Acetaminophen/ Hydrocodone Bitart ([place] (10325)) 1 tab Q4H PRN GTB pain Last administered on 12/22/16 18:02; Admin Dose 1 TAB; Start 12/20/16 at 10:00 Morphine Sulfate 3 mg 3 mg Q3H PRN IV SEVERE PAIN LEVEL 7-10 Last administered on 12/22/16 19:52; Admin Dose 3 MG; Start 12/20/16 at 11:00 Ceftriaxone Sodium (Rocephin) 50 ml @ 100 mls/hr Q24H IVPB Last administered on 12/22/16t 15:22; Admin Dose 100 MLS/HR; Start 12/21/16 at 15:00 SARANYA JONES MD Dec 22, 2016 20:25
[2016-12-23] MEDS: morphine 4 MG/ML VIAL IV PRN ×7 (00:06→21:42)
[2016-12-23 02:12] VITALS: BP 162/83; RESP 20
[2016-12-23] MEDS: HYDROCODONE/APAP (10/325) TAB GTB PRN ×4 (06:55→19:46)
[2016-12-23 07:34] VITALS: BP 145/76; RESP 18
[2016-12-23] MEDS: FERROUS SULFATE (EC) 325 MG TAB PO SCH ×2 (09:54→20:53)
[2016-12-23] MEDS: BENAZEPRIL 40 MG TAB PO SCH (09:54)
[2016-12-23] MEDS: METOPROLOL 50 MG TAB PO SCH ×2 (09:54→20:53)
[2016-12-23] MEDS: AMLODIPINE 10 MG TAB PO SCH (09:54)
[2016-12-23] MEDS: NICOTINE (21 MG/24 HR) PATCH TRANSDERM SCH (09:55)
--- NOTE | 2016-12-23 10:20 | PN ---
Date/Time of Note Date/Time of Note DATE: 12/23/16 TIME: 10:18 Assessment/Plan VTE Prophylaxis VTE Prophylaxis Intervention: LMWH Lines/Catheters [facility] Type [facility]from [email or web address] Saline Lock Urinary Cath still in place: No Assessment/Plan Chief Complaint/Hosp Course Assessment/Plan: 61 yo M here with wound infection, concern for prosthetic joint infection v wound infection Found to have S Aureus bacteremia. Patient also had I&D x 2 this admission, now with wound vac placement (and arthrocentesis 12.21) PLAN: - Ortho following -follow-up final joint washout culture results, continue Rocephin antibiotic per infectious disease recommendations as the blood cultures and wound culture are positive for MSSA (per documentation from infectious disease, may be able to be switched to Cipro 2 weeks upon discharge) . Per discussion with orthopedic surgery team, patient for another washout procedure today, follow-up postop recommendations from that as well. - Of note, TTE was without clear vegetation though mitral valve thickening. ID on consult - cont home meds for patient's hypertension and high cholesterol. - Counseled on smoking cessation. Continue nicotine patch as well -Follow-up case management consult regarding possible placement needs Problems: Subjective 24 Hr Interval Summary Free Text/Dictation Patient seen by orthopedic surgery team yesterday. Still waiting on lab results this morning. No acute events overnight, still has wound VAC in place. Exam/Review of Systems Vital Signs Vitals Vital Signs Date Time Temp Pulse Resp B/P Pulse Ox O2 Delivery O2 Flow Rate FiO2 12/23/16 07:34 98.6 82 18 145/76 94 12/21/16 11:54 Nasal Cannula 2.0 Intake and Output 12/22/16 12/22/16 12/23/16 15:00 23:00 07:00 Intake Total 1590 ml 1280 ml Balance 1590 ml 1280 ml Exam Alert, answering questions, sitting on edge of bed, no acute distress EOMI R shoulder with 4 cm incision at lateral aspect, +.5cm with some surrounding erythema and induration on both sides no mrg lungs clear abd soft no rashes Results Result Diagram: 12/19/16 0533 12/20/16 3335 Medications Medications Current Medications Acetaminophen (Tylenol Tab) 650 mg Q6H PRN PO PAIN LEVEL 1-3 OR FEVER; Start at 19:00 Acetaminophen/ Hydrocodone Bitart ([place] (5/325)) 1 tab Q6H PRN PO MODERATE PAIN LEVEL 4-6; Start 12/18/16 at 19:00 Acetaminophen/ Hydrocodone Bitart ([place] (5/325)) 2 tab Q6H PRN PO SEVERE PAIN LEVEL 7-10 Last administered on 12/20/16 09:01; Admin Dose 2 TAB; Start at 19:00 Enoxaparin Sodium (Lovenox) 40 mg DAILY SC Last administered on 12/22/16 09:21 ; Admin Dose 40 MG; Start 12/19/16 at 09:00; Status Future Hold Amlodipine Besylate (Norvasc) 10 mg DAILY PO Last administered on 12/23/16 09: 54; Admin Dose 10 MG; Start 12/19/16 at 09:00 Atorvastatin Calcium (Lipitor) 40 mg QHS PO Last administered on 12/22/16 20: 25; Admin Dose 40 MG; Start 12/18/16 at 21:00 Ferrous Sulfate (Ferrous Sulfate (Ec)) 325 mg BID PO Last administered on 09:54; Admin Dose 325 MG; Start 12/18/16 at 21:00 Metoprolol Tartrate (Lopressor) 50 mg BID PO Last administered on 12/23/16 09: 54; Admin Dose 50 MG; Start 12/18/16 at 21:00 Tramadol HCl (Ultram) 50 mg Q6H PRN PO PAIN; Start 12/18/16 at 19:00 Benazepril HCl (Lotensin) 40 mg DAILY PO Last administered on 12/23/16 09:54; Admin Dose 40 MG; Start 12/19/16 at 09:00 Nicotine (Nicoderm 21 Mg/ 24hr) 1 patch DAILY TRANSDERM Last administered on 09:55; Admin Dose 1 PATCH; Start 12/20/16 at 09:00 Nicotine Polacrilex (Nicorette) 2 mg Q2H PRN BUCCAL agitation; Start 12/20/16 at 09:30 Acetaminophen/ Hydrocodone Bitart ([place] (10/325)) 1 tab Q4H PRN GTB pain Last administered on 12/23/16 06:55; Admin Dose 1 TAB; Start 12/20/16 at 10:00 Morphine Sulfate 3 mg 3 mg Q3H PRN IV SEVERE PAIN LEVEL 7-10 Last administered on 12/23/16 08:14; Admin Dose 3 MG; Start 12/20/16 at 11:00 Ceftriaxone Sodium (Rocephin) 50 ml @ 100 mls/hr Q24H IVPB Last administered on 12/22/16 15:22; Admin Dose 100 MLS/HR; Start 12/21/16 at 15:00 ANDRES TRAN Dec 23, 2016 10:20
[2016-12-23 11:37] LABS: ABNORMAL IP MESSAGE 1; BASOPHIL # 0.1 10^3/ul (0.0-0.1); BASOPHILS % 1.3 % (0.0-2.0); EOSINOPHILS # 0.2 10^3/ul (0.0-0.5); EOSINOPHILS % 2.1 % (0.0-7.0); HEMATOCRIT 36.2 % (42.0-52.0); HEMOGLOBIN 11.4 g/dl (14.0-18.0); LYMPHOCYTES # 1.8 10^3/ul (0.8-2.9); MEAN CORPUSCULAR HGB CONC 31.5 g/dl (32.0-37.0); MEAN CORPUSCULAR VOLUME 92.1 fl (82.0-101.0); MEAN PLATELET VOLUME 9.9 fl (7.4-10.4); MONOCYTE # 1.5 10^3/ul (0.3-0.9); MONOCYTES % 18.2 % (0.0-11.0); NEUTROPHIL # 4.8 10^3/ul (1.6-7.5); PLATELET COUNT 332 10^3/UL (140-415); POSITIVE DIFF @See below; RED BLOOD COUNT 3.93 10^6/ul (4.70-6.10); RED CELL DISTRIBUTION WIDTH 13.9 % (11.5-14.5); WHITE BLOOD COUNT 8.5 10^3/ul (4.8-10.8)
[2016-12-23 11:59] LABS: CALCIUM 8.9 mg/dl (8.4-10.2); PHOSPHORUS 5.4 mg/dl (2.5-4.9); POTASSIUM 4.8 mmol/L (3.5-5.1)
--- NOTE | 2016-12-23 13:39 | CONS ---
Date/Time of Note Date/Time of Note DATE: 12/23/16 TIME: 13:39 Assessment/Plan Assessment/Plan Chief Complaint/Hosp Course No acute events overnight. Patient is alert feels good looks comfortable denies pain Temperature 98.6 pulse 82 respirations 18 blood pressure 145/76 saturation 94% BUN 17 creatinine 1 WBC 8.5 H&H 11.4 and 36.2 platelets 332 Physical examination well-nourished well-developed middle-aged man who is alert in no distress head atraumatic normocephalic sclerae anicteric neck is supple chest rise symmetrical breath sounds clear heart S1-S2 abdomen soft bowel sounds present extremities without cyanosis skin with right upper back wound to wound VAC Assessment: 1. Status post oxacillin sensitive staph aureus bacteremia secondary to #2 2. Right posterior shoulder infected wound, status post I&D with wound VAC application, status post arthrocentesis of right anterior shoulder Plan: Patient remains stable there is concern for joint involvement. He is on IV Rocephin, surgery follows. Cultures were susceptible to ciprofloxacin, will discuss with surgery final plan of care. Patient may require long-term antibiotics if joint involvement suspected Problems: Consultation Date/Type/Reason Admit Date/Time Dec 18, 2016 at 17:39 Initial Consult Date Type of Consultation: id Exam/Review of Systems Vital Signs Vitals Vital Signs Date Time Temp Pulse Resp B/P Pulse Ox O2 Delivery O2 Flow Rate FiO2 12/23/16 07:34 98.6 82 18 145/76 94 12/21/16 11:54 Nasal Cannula 2.0 Intake and Output 12/22/16 12/22/16 12/23/16 15:00 23:00 07:00 Intake Total 1590 ml 1280 ml Balance 1590 ml 1280 ml Results Result Diagram: 12/23/16 1127 12/23/16 1127 Results 24 hrs Laboratory Tests Test 12/23/16 11:27 White Blood Count 8.5 # Red Blood Count 3.93 L Hemoglobin 11.4 L Hematocrit 36.2 L Mean Corpuscular Volume 92.1 Mean Corpuscular Hemoglobin 29.0 Mean Corpuscular Hemoglobin Concent 31.5 L Red Cell Distribution Width 13.9 Platelet Count 332 # Mean Platelet Volume 9.9 Neutrophils % 57.0 Lymphocytes % 21.0 Monocytes % 18.2 H Eosinophils % 2.1 Basophils % 1.3 Nucleated Red Blood Cells % 0.0 Neutrophils # 4.8 Lymphocytes # 1.8 Monocytes # 1.5 H Eosinophils # 0.2 Basophils # 0.1 Nucleated Red Blood Cells # 0.0 Sodium Level 135 Potassium Level 4.8 Chloride Level 98 Carbon Dioxide Level 31 Anion Gap 11 Blood Urea Nitrogen 17 Creatinine 1.00 Glucose Level 95 Calcium Level 8.9 Phosphorus Level 5.4 H Magnesium Level 2.0 Medications Medications Current Medications Acetaminophen (Tylenol Tab) 650 mg Q6H PRN PO PAIN LEVEL 1-3 OR FEVER; Start at 19:00 Acetaminophen/ Hydrocodone Bitart ([place] (5/325)) 1 tab Q6H PRN PO MODERATE PAIN LEVEL 4-6; Start 12/18/16 at 19:00 Acetaminophen/ Hydrocodone Bitart ([place] (5/325)) 2 tab Q6H PRN PO SEVERE PAIN LEVEL 7-10 Last administered on 12/20/16 09:01; Admin Dose 2 TAB; Start at 19:00 Enoxaparin Sodium (Lovenox) 40 mg DAILY SC Last administered on 12/22/16 09:21 ; Admin Dose 40 MG; Start 12/19/16 at 09:00; Status Future Hold Amlodipine Besylate (Norvasc) 10 mg DAILY PO Last administered on 12/23/16 09: 54; Admin Dose 10 MG; Start 12/19/16 at 09:00 Atorvastatin Calcium (Lipitor) 40 mg QHS PO Last administered on 12/22/16 20: 25; Admin Dose 40 MG; Start 12/18/16 at 21:00 Ferrous Sulfate (Ferrous Sulfate (Ec)) 325 mg BID PO Last administered on 09:54; Admin Dose 325 MG; Start 12/18/16 at 21:00 Metoprolol Tartrate (Lopressor) 50 mg BID PO Last administered on 12/23/16 09: 54; Admin Dose 50 MG; Start 12/18/16 at 21:00 Tramadol HCl (Ultram) 50 mg Q6H PRN PO PAIN; Start 12/18/16 at 19:00 Benazepril HCl (Lotensin) 40 mg DAILY PO Last administered on 12/23/16 09:54; Admin Dose 40 MG; Start 12/19/16 at 09:00 Nicotine (Nicoderm 21 Mg/ 24hr) 1 patch DAILY TRANSDERM Last administered on 09:55; Admin Dose 1 PATCH; Start 12/20/16 at 09:00 Nicotine Polacrilex (Nicorette) 2 mg Q2H PRN BUCCAL agitation; Start 12/20/16 at 09:30 Acetaminophen/ Hydrocodone Bitart ([place] (10/325)) 1 tab Q4H PRN GTB pain Last administered on 12/23/16 06:55; Admin Dose 1 TAB; Start 12/20/16 at 10:00 Morphine Sulfate 3 mg 3 mg Q3H PRN IV SEVERE PAIN LEVEL 7-10 Last administered on 12/23/16 11:19; Admin Dose 3 MG; Start 12/20/16 at 11:00 Ceftriaxone Sodium (Rocephin) 50 ml @ 100 mls/hr Q24H IVPB Last administered on 12/22/16 15:22; Admin Dose 100 MLS/HR; Start 12/21/16 at 15:00 MICHELE COUCH NP Dec 23, 2016 13:39
[2016-12-23 13:43] VITALS: BP 158/72; RESP 16
[2016-12-23] MEDS: CEFTRIAXONE 1 GM/50 ML (PMX) 50 ML IVPB SCH (15:21)
[2016-12-23 19:34] VITALS: BP 166/81; RESP 20
[2016-12-23] MEDS: ATORVASTATIN 40 MG TAB PO SCH (20:52)
[2016-12-24] VITALS (9 sets, daily range): BP systolic 118–173; BP diastolic 52–77; PULSE 74–92; RESP 18–27
[2016-12-24] MEDS: morphine 4 MG/ML VIAL IV PRN ×7 (00:43→22:17)
[2016-12-24] MEDS: ZOLPIDEM 5 MG TAB PO PRN (00:54)
[2016-12-24 06:10] LABS: BASOPHIL # 0.1 10^3/ul (0.0-0.1); BASOPHILS % 1.4 % (0.0-2.0); EOSINOPHILS # 0.3 10^3/ul (0.0-0.5); EOSINOPHILS % 2.9 % (0.0-7.0); HEMATOCRIT 34.8 % (42.0-52.0); HEMOGLOBIN 11.1 g/dl (14.0-18.0); LYMPHOCYTES # 1.7 10^3/ul (0.8-2.9); LYMPHOCYTES % 18.9 % (15.0-51.0); MEAN CORPUSCULAR HEMOGLOBIN 29.1 pg (29.0-33.0); MEAN CORPUSCULAR HGB CONC 31.9 g/dl (32.0-37.0); MEAN CORPUSCULAR VOLUME 91.3 fl (82.0-101.0); MEAN PLATELET VOLUME 9.7 fl (7.4-10.4); MONOCYTE # 1.5 10^3/ul (0.3-0.9); MONOCYTES % 16.8 % (0.0-11.0); NEUTROPHIL # 5.2 10^3/ul (1.6-7.5); NEUTROPHILS % 59.3 % (39.0-77.0); PLATELET COUNT 386 10^3/UL (140-415); RED BLOOD COUNT 3.81 10^6/ul (4.70-6.10); RED CELL DISTRIBUTION WIDTH 13.9 % (11.5-14.5); WHITE BLOOD COUNT 8.7 10^3/ul (4.8-10.8)
[2016-12-24 06:43] LABS: CALCIUM 8.9 mg/dl (8.4-10.2); CREATININE 0.96 mg/dl (0.61-1.24); POTASSIUM 4.4 mmol/L (3.5-5.1)
[2016-12-24] MEDS: HYDROCODONE/APAP (5/325) TAB PO PRN (07:07)
--- NOTE | 2016-12-24 10:08 | PN ---
Date/Time of Note Date/Time of Note DATE: 12/24/16 TIME: 10:06 Assessment/Plan VTE Prophylaxis VTE Prophylaxis Intervention: LMWH Lines/Catheters IV Catheter Type (from [facility] [place] Urinary Cath still in place: No Assessment/Plan Chief Complaint/Hosp Course Assessment/Plan: 61 yo M here with wound infection, concern for prosthetic joint infection v wound infection Found to have S Aureus bacteremia. Patient also had I&D x 2 this admission, now with wound vac placement (and arthrocentesis 12.21) PLAN: - Ortho following -follow-up final joint washout culture results, continue Rocephin antibiotic per infectious disease recommendations as the blood cultures and wound culture are positive for MSSA (per documentation from infectious disease, may be able to be switched to Cipro 2 weeks upon discharge) . Per discussion with orthopedic surgery team, patient for another washout procedure today (rescheduled for today), follow-up postop recommendations from that as well. - Of note, TTE was without clear vegetation though mitral valve thickening. ID on consult - cont home meds for patient's hypertension and high cholesterol. - Counseled on smoking cessation. Continue nicotine patch as well -Follow-up case management consult regarding possible placement needs Problems: Subjective 24 Hr Interval Summary Free Text/Dictation Surgery not performed yesterday due to patient mistakenly delivered a a tray of food, no acute events overnight. Scheduled for surgery later today. Exam/Review of Systems Vital Signs Vitals Vital Signs Date Time Temp Pulse Resp B/P Pulse Ox O2 Delivery O2 Flow Rate FiO2 12/24/16 07:20 97.9 82 18 161/77 97 12/21/16 11:54 Nasal Cannula 2.0 Intake and Output 12/23/16 12/23/16 12/24/16 15:00 23:00 07:00 Intake Total 900 ml 640 ml Balance 900 ml 640 ml Exam Alert, answering questions, sitting on edge of bed, no acute distress EOMI R shoulder with 4 cm incision at lateral aspect, +.5cm with some surrounding erythema and induration on both sides no mrg lungs clear abd soft no rashes Results Result Diagram: 12/24/16 0533 12/24/16 0533 Results 24 hrs Laboratory Tests Test 12/23/16 11:27 12/24/16 05:33 White Blood Count 8.5 # 8.7 Red Blood Count 3.93 L 3.81 L Hemoglobin 11.4 L 11.1 L Hematocrit 36.2 L 34.8 L Mean Corpuscular Volume 92.1 91.3 Mean Corpuscular Hemoglobin 29.0 29.1 Mean Corpuscular Hemoglobin Concent 31.5 L 31.9 L Red Cell Distribution Width 13.9 13.9 Platelet Count 332 # 386 Mean Platelet Volume 9.9 9.7 Neutrophils % 57.0 59.3 Lymphocytes % 21.0 18.9 Monocytes % 18.2 H 16.8 H Eosinophils % 2.1 2.9 Basophils % 1.3 1.4 Nucleated Red Blood Cells % 0.0 0.0 Neutrophils # 4.8 5.2 Lymphocytes # 1.8 1.7 Monocytes # 1.5 H 1.5 H Eosinophils # 0.2 0.3 Basophils # 0.1 0.1 Nucleated Red Blood Cells # 0.0 0.0 Sodium Level 135 133 L Potassium Level 4.8 4.4 Chloride Level 98 96 L Carbon Dioxide Level 31 31 Anion Gap 11 10 Blood Urea Nitrogen 17 19 Creatinine 1.00 0.96 Glucose Level 95 95 Calcium Level 8.9 8.9 Phosphorus Level 5.4 H Magnesium Level 2.0 C-Reactive Protein 18.3 H Medications Medications Current Medications Acetaminophen (Tylenol Tab) 650 mg Q6H PRN PO PAIN LEVEL 1-3 OR FEVER; Start at 19:00 Acetaminophen/ Hydrocodone Bitart ([place] (5/325)) 1 tab Q6H PRN PO MODERATE PAIN LEVEL 4-6 Last administered on 12/24/16 07:07; Admin Dose 1 TAB; Start at 19:00 Acetaminophen/ Hydrocodone Bitart ([place] (5/325)) 2 tab Q6H PRN PO SEVERE PAIN LEVEL 7-10 Last administered on 12/20/16 09:01; Admin Dose 2 TAB; Start at 19:00 Enoxaparin Sodium (Lovenox) 40 mg DAILY SC Last administered on 12/22/16 09:21 ; Admin Dose 40 MG; Start 12/19/16 at 09:00; Status Future Hold Amlodipine Besylate (Norvasc) 10 mg DAILY PO Last administered on 12/23/16 09: 54; Admin Dose 10 MG; Start 12/19/16 at 09:00 Atorvastatin Calcium (Lipitor) 40 mg QHS PO Last administered on 12/23/16 20: 52; Admin Dose 40 MG; Start 12/18/16 at 21:00 Ferrous Sulfate (Ferrous Sulfate (Ec)) 325 mg BID PO Last administered on 20:53; Admin Dose 325 MG; Start 12/18/16 at 21:00 Metoprolol Tartrate (Lopressor) 50 mg BID PO Last administered on 12/23/16 20: 53; Admin Dose 50 MG; Start 12/18/16 at 21:00 Tramadol HCl (Ultram) 50 mg Q6H PRN PO PAIN; Start 12/18/16 at 19:00 Benazepril HCl (Lotensin) 40 mg DAILY PO Last administered on 12/23/16 09:54; Admin Dose 40 MG; Start 12/19/16 at 09:00 Nicotine (Nicoderm 21 Mg/ 24hr) 1 patch DAILY TRANSDERM Last administered on 09:55; Admin Dose 1 PATCH; Start 12/20/16 at 09:00 Nicotine Polacrilex (Nicorette) 2 mg Q2H PRN BUCCAL agitation; Start 12/20/16 at 09:30 Acetaminophen/ Hydrocodone Bitart ([place] (10/325)) 1 tab Q4H PRN GTB pain Last administered on 12/23/16 19:46; Admin Dose 1 TAB; Start 12/20/16 at 10:00 Morphine Sulfate 3 mg 3 mg Q3H PRN IV SEVERE PAIN LEVEL 7-10 Last administered on 12/24/16 08:07; Admin Dose 3 MG; Start 12/20/16 at 11:00 Ceftriaxone Sodium (Rocephin) 50 ml @ 100 mls/hr Q24H IVPB Last administered on 12/23/16 15:21; Admin Dose 100 MLS/HR; Start 12/21/16 at 15:00 Zolpidem Tartrate (Ambien) 10 mg HS PRN PO INSOMNIA Last administered on 00:54; Admin Dose 10 MG; Start 12/24/16 at 01:00 ANDRES TRAN Dec 24, 2016 10:08
[2016-12-24] MEDS: BENAZEPRIL 40 MG TAB PO SCH (10:39)
[2016-12-24] MEDS: AMLODIPINE 10 MG TAB PO SCH (10:39)
[2016-12-24] MEDS: NICOTINE (21 MG/24 HR) PATCH TRANSDERM SCH (10:39)
[2016-12-24] MEDS: FERROUS SULFATE (EC) 325 MG TAB PO SCH ×2 (10:39→20:36)
[2016-12-24] MEDS: METOPROLOL 50 MG TAB PO SCH ×2 (10:40→20:37)
--- NOTE | 2016-12-24 13:44 | PN ---
DATE: 12/24/2016 SUBJECTIVE DATA: No acute changes. No fevers. The patient is sleeping. Vital signs stable. LABORATORY AND DIAGNOSTIC DATA: WBC today 8.7, platelets 386,000s. No shift, no bands. BUN 19, creatinine 0.96. MICROBIOLOGY: Repeat blood culture on 12/19/2016 negative. ANTIMICROBIALS: Patient is on Rocephin. OBJECTIVE DATA: PHYSICAL EXAMINATION: GENERAL: Well-developed, well-nourished middle age man who is in no distress. HEENT: Head atraumatic, normocephalic. Sclerae anicteric. NECK: Supple. CHEST: Rise symmetrical. Breath sounds clear. HEART: S1, S2. ABDOMEN: Soft, bowel sounds present. EXTREMITIES: Without cyanosis. ASSESSMENT: 1. Oxacillin-sensitive Staph aureus bacteremia, secondary to infected right shoulder wound, rule out septic joint. Status post-incision and drainage with application of wound VAC and arthrocentesis of right shoulder. 2. Allergy to penicillin and sulfa. PLAN: The patient remains stable on appropriate antimicrobials. Repeat blood cultures negative. He is being seen by Ortho team. Plan for another irrigation and debridement given the fact of high suspicion for septic joint, recommend 4-6 weeks antibiotics treatment; may be down grade to oral Cipro after discharge. Dictated By: Natalee Mccartney NP /thomas/heath /Document#: [id number]
[2016-12-24] MEDS: CEFTRIAXONE 1 GM/50 ML (PMX) 50 ML IVPB SCH (15:00)
[2016-12-24] MEDS ORDERED: DIPHENHYDRAMINE 50 MG INJ IV PRN (16:30)
[2016-12-24] MEDS ORDERED: OXYCODONE/ACETAMINOPHEN (5/325) TAB PO PRN ×2 (16:30)
[2016-12-24] MEDS ORDERED: HYDROmorphONE (0.2 MG/ML) 10ML SYG IV PRN ×3 (16:30)
[2016-12-24] MEDS ORDERED: FENTAnyl 50 MCG/ML VIAL IV PRN ×3 (16:30)
[2016-12-24] MEDS ORDERED: hydrALAzine 20 MG INJ IV PRN (16:30)
[2016-12-24] MEDS ORDERED: LABETALOL HCL 20MG INJ IV PRN (16:30)
[2016-12-24] MEDS ORDERED: METOCLOPRAMIDE 10 MG INJ IV PRN (16:30)
[2016-12-24] MEDS ORDERED: ONDANSETRON 4 MG INJ IV PRN (16:30)
[2016-12-24] MEDS ORDERED: EPHEDrine SULFATE 50 MG/5 ML SYG IV PRN (16:30)
[2016-12-24] MEDS ORDERED: MIDAZOLAM 1 MG/ML 2 ML INJ IV PRN (16:30)
[2016-12-24] MEDS ORDERED: MEPERIDINE 25 MG INJ IV PRN (16:30)
[2016-12-24] MEDS ORDERED: LIDOCAINE 2% (SDV) 5 ML INJ ONE (16:37)
[2016-12-24] MEDS ORDERED: PROPOFOL 20 ML ONE (16:37)
--- NOTE | 2016-12-24 16:51 | HPN ---
Date/Time of Note Date/Time of Note DATE: 12/24/16 TIME: 16:51 Interval H&P Admission Note Pt. seen H&P reviewed: No system changes SARANYA JONES MD Dec 24, 2016 16:51
--- NOTE | 2016-12-24 18:10 | SIPON ---
Date/Time of Note Date/Time of Note DATE: 12/24/16 TIME: 18:08 Operative Report Preoperative Diagnosis Right Posterior Shoulder infection Postoperative Diagnosis Right Posterior Shoulder infection Operation/Procedure Performed 1) Irrigation and Debridement of Posterior Right Shoulder wound 2) Application of wound vac, <50cm, 3) Arthrocentesis anterior glenohumeral joint Surgeon see signature line reading assistant none Anesthesia: general Estimated blood loss: minimal Transfusion Required none Specimen None Grafts/Implants none Complications none SARANYA JONES MD Dec 24, 2016 18:10
[2016-12-24] MEDS: ATORVASTATIN 40 MG TAB PO SCH (20:36)
[2016-12-24] MEDS: HYDROCODONE/APAP (10/325) TAB GTB PRN (20:37)
[2016-12-25] MEDS: morphine 4 MG/ML VIAL IV PRN ×8 (01:03→23:04)
[2016-12-25 02:03] VITALS: BP 119/62; RESP 20
[2016-12-25] MEDS: HYDROCODONE/APAP (10/325) TAB GTB PRN ×2 (02:09→09:50)
[2016-12-25 06:02] LABS: BASOPHIL # 0.2 10^3/ul (0.0-0.1); BASOPHILS % 1.6 % (0.0-2.0); EOSINOPHILS # 0.3 10^3/ul (0.0-0.5); EOSINOPHILS % 3.6 % (0.0-7.0); HEMATOCRIT 34.6 % (42.0-52.0); HEMOGLOBIN 11.2 g/dl (14.0-18.0); LYMPHOCYTES # 2.1 10^3/ul (0.8-2.9); LYMPHOCYTES % 22.4 % (15.0-51.0); MEAN CORPUSCULAR HEMOGLOBIN 29.6 pg (29.0-33.0); MEAN CORPUSCULAR HGB CONC 32.4 g/dl (32.0-37.0); MEAN CORPUSCULAR VOLUME 91.5 fl (82.0-101.0); MEAN PLATELET VOLUME 9.6 fl (7.4-10.4); MONOCYTE # 1.4 10^3/ul (0.3-0.9); MONOCYTES % 15.1 % (0.0-11.0); NEUTROPHIL # 5.3 10^3/ul (1.6-7.5); NEUTROPHILS % 56.7 % (39.0-77.0); PLATELET COUNT 434 10^3/UL (140-415); RED BLOOD COUNT 3.78 10^6/ul (4.70-6.10); RED CELL DISTRIBUTION WIDTH 13.6 % (11.5-14.5); WHITE BLOOD COUNT 9.4 10^3/ul (4.8-10.8)
[2016-12-25 06:10] LABS: CALCIUM 8.8 mg/dl (8.4-10.2); CREATININE 0.96 mg/dl (0.61-1.24); POTASSIUM 4.6 mmol/L (3.5-5.1)
[2016-12-25 07:28] VITALS: BP 146/72; RESP 18
--- NOTE | 2016-12-25 09:38 | PN ---
Date/Time of Note Date/Time of Note DATE: 12/25/16 TIME: 09:35 Assessment/Plan VTE Prophylaxis VTE Prophylaxis Intervention: LMWH Lines/Catheters IV [facility] Type (from [facility] Peripheral IV Urinary Cath still in place: No Assessment/Plan Chief Complaint/Hosp Course Assessment/Plan: 61 yo M here with wound infection, concern for prosthetic joint infection v wound infection Found to have S Aureus bacteremia. Patient also had I&D x 2 this admission, now with wound vac placement (and arthrocentesis 12.21) PLAN: - Ortho following -follow-up final joint washout culture results, follow-up postop recommendations, continue Rocephin antibiotic per infectious disease recommendations as the blood cultures and wound culture are positive for MSSA ( per documentation from infectious disease, may be able to be switched to Cipro 4-6 weeks upon discharge). - Of note, TTE was without clear vegetation though mitral valve thickening. ID on consult - cont home meds for patient's hypertension and high cholesterol. - Counseled on smoking cessation. Continue nicotine patch as well -Follow-up case management consult regarding possible placement needs Problems: Subjective 24 Hr Interval Summary Free Text/Dictation Had another I + D procedure performed yesterday. No acute events overnight. Exam/Review of Systems Vital Signs Vitals Vital Signs Date Time Temp Pulse Resp B/P Pulse Ox O2 Delivery O2 Flow Rate FiO2 12/25/16 07:28 98.0 77 18 146/72 98 12/24/16 18:17 Room Air 12/21/16 11:54 2.0 Intake and Output 12/24/16 12/24/16 12/25/16 15:00 23:00 07:00 Intake Total 1200 ml 700 ml Output Total 20 ml Balance 1180 ml 700 ml Exam Alert, answering questions, sitting on edge of bed, no acute distress EOMI R shoulder with 4 cm incision at lateral aspect, +.5cm with some surrounding erythema and induration on both sides no mrg lungs clear abd soft no rashes Results Result Diagram: 12/25/16 0514 12/25/16 0514 Results 24 hrs Laboratory Tests Test 12/25/16 05:14 White Blood Count 9.4 Red Blood Count 3.78 L Hemoglobin 11.2 L Hematocrit 34.6 L Mean Corpuscular Volume 91.5 Mean Corpuscular Hemoglobin 29.6 Mean Corpuscular Hemoglobin Concent 32.4 Red Cell Distribution Width 13.6 Platelet Count 434 H Mean Platelet Volume 9.6 Neutrophils % 56.7 Lymphocytes % 22.4 Monocytes % 15.1 H Eosinophils % 3.6 Basophils % 1.6 Nucleated Red Blood Cells % 0.0 Neutrophils # 5.3 Lymphocytes # 2.1 Monocytes # 1.4 H Eosinophils # 0.3 Basophils # 0.2 H Nucleated Red Blood Cells # 0.0 Sodium Level 132 L Potassium Level 4.6 Chloride Level 98 Carbon Dioxide Level 30 Anion Gap 9 Blood Urea Nitrogen 19 Creatinine 0.96 Glucose Level 87 Calcium Level 8.8 Medications Medications Current Medications Acetaminophen (Tylenol Tab) 650 mg Q6H PRN PO PAIN LEVEL 1-3 OR FEVER; Start at 19:00 Acetaminophen/ Hydrocodone Bitart ([place] (5/325)) 1 tab Q6H PRN PO MODERATE PAIN LEVEL 4-6 Last administered on 12/24/16 07:07; Admin Dose 1 TAB; Start at 19:00 Acetaminophen/ Hydrocodone Bitart ([place] (5/325)) 2 tab Q6H PRN PO SEVERE PAIN LEVEL 7-10 Last administered on 12/20/16 09:01; Admin Dose 2 TAB; Start at 19:00 Enoxaparin Sodium (Lovenox) 40 mg DAILY SC Last administered on 12/22/16 09:21 ; Admin Dose 40 MG; Start 12/19/16 at 09:00; Status Future Hold Amlodipine Besylate (Norvasc) 10 mg DAILY PO Last administered on 12/24/16 10: 39; Admin Dose 10 MG; Start 12/19/16 at 09:00 Atorvastatin Calcium (Lipitor) 40 mg QHS PO Last administered on 12/24/16 20: 36; Admin Dose 40 MG; Start 12/18/16 at 21:00 Ferrous Sulfate (Ferrous Sulfate (Ec)) 325 mg BID PO Last administered on 20:36; Admin Dose 325 MG; Start 12/18/16 at 21:00 Metoprolol Tartrate (Lopressor) 50 mg BID PO Last administered on 12/24/16 20: 37; Admin Dose 50 MG; Start 12/18/16 at 21:00 Tramadol HCl (Ultram) 50 mg Q6H PRN PO PAIN; Start 12/18/16 at 19:00 Benazepril HCl (Lotensin) 40 mg DAILY PO Last administered on 12/24/16 10:39; Admin Dose 40 MG; Start 12/19/16 at 09:00 Nicotine (Nicoderm 21 Mg/ 24hr) 1 patch DAILY TRANSDERM Last administered on 10:39; Admin Dose 1 PATCH; Start 12/20/16 at 09:00 Nicotine Polacrilex (Nicorette) 2 mg Q2H PRN BUCCAL agitation; Start 12/20/16 at 09:30 Acetaminophen/ Hydrocodone Bitart ([place] ()) 1 tab Q4H PRN GTB pain Last administered on 12/25/16 02:09; Admin Dose 1 TAB; Start 12/20/16 at 10:00 Morphine Sulfate 3 mg 3 mg Q3H PRN IV SEVERE PAIN LEVEL 7-10 Last administered on 12/25/16 07:22; Admin Dose 3 MG; Start 12/20/16 at 11:00 Ceftriaxone Sodium (Rocephin) 50 ml @ 100 mls/hr Q24H IVPB Last administered on 12/24/16 15:00; Admin Dose 100 MLS/HR; Start 12/21/16 at 15:00 Zolpidem Tartrate (Ambien) 10 mg HS PRN PO INSOMNIA Last administered on 00:54; Admin Dose 10 MG; Start 12/24/16 at 01:00 ANDRES TRAN Dec 25, 2016 09:38
[2016-12-25 09:47] VITALS: BP 143/76; PULSE 82; RESP 18
[2016-12-25] MEDS: METOPROLOL 50 MG TAB PO SCH ×2 (09:49→20:06)
[2016-12-25] MEDS: AMLODIPINE 10 MG TAB PO SCH (09:49)
[2016-12-25] MEDS: FERROUS SULFATE (EC) 325 MG TAB PO SCH ×2 (09:49→20:02)
[2016-12-25] MEDS: BENAZEPRIL 40 MG TAB PO SCH (09:49)
[2016-12-25] MEDS: NICOTINE (21 MG/24 HR) PATCH TRANSDERM SCH (09:50)
--- NOTE | 2016-12-25 12:22 | CONS ---
Date/Time of Note Date/Time of Note DATE: 12/25/16 TIME: 12:20 Assessment/Plan Assessment/Plan Chief Complaint/Hosp Course Alert feels good denies pain, no fevers Pressure 98 pulse 77 respirations 18 blood pressure 146/72 saturation 98 on room air WBC 9.4 platelets 434, no shift BUN 19 creatinine 0.96 Physical examination well-nourished well-developed middle-aged man who is alert in no distress head atraumatic normocephalic sclerae anicteric neck is supple chest rise symmetrical breath sounds clear heart S1-S2 abdomen soft bowel sounds present extremities without cyanosis skin with right upper back wound to wound VAC Assessment: 1. Status post oxacillin sensitive staph aureus bacteremia secondary to #2 2. Right posterior shoulder infected wound, status post I&D with wound VAC application, status post arthrocentesis of right anterior shoulder Plan: Patient remains stable, status post I&D yesterday with wound VAC reapplication. Continue present care, antibiotics follow or to recommendations. Cultures were susceptible to ciprofloxacin. Patient may require long-term antibiotics if joint involvement suspected Problems: Consultation Date/Type/Reason Admit Date/Time Dec 18, 2016 at 17:39 Type of Consultation: id Exam/Review of Systems Vital Signs Vitals Vital Signs Date Time Temp Pulse Resp B/P Pulse Ox O2 Delivery O2 Flow Rate FiO2 12/25/16 09:47 82 18 143/76 Room Air 12/25/16 07:28 98.0 98 12/21/16 11:54 2.0 Intake and Output 12/24/16 12/24/16 12/25/16 15:00 23:00 07:00 Intake Total 1200 ml 700 ml Output Total 20 ml Balance 1180 ml 700 ml Results Result Diagram: 12/25/16 0514 12/25/16 0514 Results 24 hrs Laboratory Tests Test 12/25/16 05:14 White Blood Count 9.4 Red Blood Count 3.78 L Hemoglobin 11.2 L Hematocrit 34.6 L Mean Corpuscular Volume 91.5 Mean Corpuscular Hemoglobin 29.6 Mean Corpuscular Hemoglobin Concent 32.4 Red Cell Distribution Width 13.6 Platelet Count 434 H Mean Platelet Volume 9.6 Neutrophils % 56.7 Lymphocytes % 22.4 Monocytes % 15.1 H Eosinophils % 3.6 Basophils % 1.6 Nucleated Red Blood Cells % 0.0 Neutrophils # 5.3 Lymphocytes # 2.1 Monocytes # 1.4 H Eosinophils # 0.3 Basophils # 0.2 H Nucleated Red Blood Cells # 0.0 Sodium Level 132 L Potassium Level 4.6 Chloride Level 98 Carbon Dioxide Level 30 Anion Gap 9 Blood Urea Nitrogen 19 Creatinine 0.96 Glucose Level 87 Calcium Level 8.8 Medications Medications Current Medications Acetaminophen (Tylenol Tab) 650 mg Q6H PRN PO PAIN LEVEL 1-3 OR FEVER; Start at 19:00 Acetaminophen/ Hydrocodone Bitart ([place] (5/325)) 1 tab Q6H PRN PO MODERATE PAIN LEVEL 4-6 Last administered on 12/24/16 07:07; Admin Dose 1 TAB; Start at 19:00 Acetaminophen/ Hydrocodone Bitart ([place] (5/325)) 2 tab Q6H PRN PO SEVERE PAIN LEVEL 7-10 Last administered on 12/20/16 09:01; Admin Dose 2 TAB; Start at 19:00 Enoxaparin Sodium (Lovenox) 40 mg DAILY SC Last administered on 12/22/16 09:21 ; Admin Dose 40 MG; Start 12/19/16 at 09:00; Status Future Hold Amlodipine Besylate (Norvasc) 10 mg DAILY PO Last administered on 12/25/16 09: 49; Admin Dose 10 MG; Start 12/19/16 at 09:00 Atorvastatin Calcium (Lipitor) 40 mg QHS PO Last administered on 12/24/16 20: 36; Admin Dose 40 MG; Start 12/18/16 at 21:00 Ferrous Sulfate (Ferrous Sulfate (Ec)) 325 mg BID PO Last administered on 09:49; Admin Dose 325 MG; Start 12/18/16 at 21:00 Metoprolol Tartrate (Lopressor) 50 mg BID PO Last administered on 12/25/16 09: 49; Admin Dose 50 MG; Start 12/18/16 at 21:00 Tramadol HCl (Ultram) 50 mg Q6H PRN PO PAIN; Start 12/18/16 at 19:00 Benazepril HCl (Lotensin) 40 mg DAILY PO Last administered on 12/25/16 09:49; Admin Dose 40 MG; Start 12/19/16 at 09:00 Nicotine (Nicoderm 21 Mg/ 24hr) 1 patch DAILY TRANSDERM Last administered on 09:50; Admin Dose 1 PATCH; Start 12/20/16 at 09:00 Nicotine Polacrilex (Nicorette) 2 mg Q2H PRN BUCCAL agitation; Start 12/20/16 at 09:30 Acetaminophen/ Hydrocodone Bitart ([place] (10/325)) 1 tab Q4H PRN GTB pain Last administered on 12/25/16 09:50; Admin Dose 1 TAB; Start 12/20/16 at 10:00 Morphine Sulfate 3 mg 3 mg Q3H PRN IV SEVERE PAIN LEVEL 7-10 Last administered on 12/25/16 10:38; Admin Dose 3 MG; Start 12/20/16 at 11:00 Ceftriaxone Sodium (Rocephin) 50 ml @ 100 mls/hr Q24H IVPB Last administered on 12/24/16 15:00; Admin Dose 100 MLS/HR; Start 12/21/16 at 15:00 Zolpidem Tartrate (Ambien) 10 mg HS PRN PO INSOMNIA Last administered on 00:54; Admin Dose 10 MG; Start 12/24/16 at 01:00 MICHELE COUCH NP Dec 25, 2016 12:22
[2016-12-25 13:08] VITALS: BP 126/65; RESP 18
[2016-12-25] MEDS: CEFTRIAXONE 1 GM/50 ML (PMX) 50 ML IVPB SCH (16:54)
[2016-12-25 19:36] VITALS: BP 139/72; RESP 20
[2016-12-25] MEDS: ATORVASTATIN 40 MG TAB PO SCH (20:02)
--- NOTE | 2016-12-25 21:00 | PN ---
Date/Time of Note Date/Time of Note DATE: 12/25/16 TIME: 20:59 Assessment/Plan VTE Prophylaxis VTE Prophylaxis Intervention: ambulation Lines/Catheters IV C[facility]ter Type (from [facility]): Saline Lock Urinary Cath still in place: No Assessment/Plan Chief Complaint/Hosp Course Continue twice daily packing changes. Will follow labs and cultures. Possible OR procedure if no improvement. Continue broad spectrum antibiotics. MRI of posterior right flank an option as well to determine the extent of the fluid collection, but his shoulder arthroplasty will obscure the imaged. At this time I do no believe his shoulder joint and implant are involved, but will remain vigilant regarding this possibility. Problems: Assessment/Plan To OR Thursday for I&D and wound vac change. Subjective 24 Hr Interval Summary Free Text/Dictation No acute events overnight. Exam/Review of Systems Vital Signs Vitals Vital Signs Date Time Temp Pulse Resp B/P Pulse Ox O2 Delivery O2 Flow Rate FiO2 12/25/16 19:36 98.3 20 139/72 98 12/25/16 13:08 68 12/25/16 09:47 Room Air 12/21/16 11:54 2.0 Intake and Output 12/24/16 12/24/16 12/25/16 15:00 23:00 07:00 Intake Total 1200 ml 700 ml Output Total 20 ml Balance 1180 ml 700 ml Results Wound vac c/d/i. Trace output Result Diagram: 12/25/16 0514 12/25/16 0514 Results 24 hrs Laboratory Tests Test 12/25/16 05:14 White Blood Count 9.4 Red Blood Count 3.78 L Hemoglobin 11.2 L Hematocrit 34.6 L Mean Corpuscular Volume 91.5 Mean Corpuscular Hemoglobin 29.6 Mean Corpuscular Hemoglobin Concent 32.4 Red Cell Distribution Width 13.6 Platelet Count 434 H Mean Platelet Volume 9.6 Neutrophils % 56.7 Lymphocytes % 22.4 Monocytes % 15.1 H Eosinophils % 3.6 Basophils % 1.6 Nucleated Red Blood Cells % 0.0 Neutrophils # 5.3 Lymphocytes # 2.1 Monocytes # 1.4 H Eosinophils # 0.3 Basophils # 0.2 H Nucleated Red Blood Cells # 0.0 Sodium Level 132 L Potassium Level 4.6 Chloride Level 98 Carbon Dioxide Level 30 Anion Gap 9 Blood Urea Nitrogen 19 Creatinine 0.96 Glucose Level 87 Calcium Level 8.8 Medications Medications Current Medications Acetaminophen (Tylenol Tab) 650 mg Q6H PRN PO PAIN LEVEL 1-3 OR FEVER; Start at 19:00 Acetaminophen/ Hydrocodone Bitart ([place] (5/325)) 1 tab Q6H PRN PO MODERATE PAIN LEVEL 4-6 Last administered on 12/24/16 07:07; Admin Dose 1 TAB; Start at 19:00 Acetaminophen/ Hydrocodone Bitart ([place] (5/325)) 2 tab Q6H PRN PO SEVERE PAIN LEVEL 7-10 Last administered on 12/20/16 09:01; Admin Dose 2 TAB; Start at 19:00 Enoxaparin Sodium (Lovenox) 40 mg DAILY SC Last administered on 12/22/16 09:21 ; Admin Dose 40 MG; Start 12/19/16 at 09:00; Status Future Hold Amlodipine Besylate (Norvasc) 10 mg DAILY PO Last administered on 12/25/16 09: 49; Admin Dose 10 MG; Start 12/19/16 at 09:00 Atorvastatin Calcium (Lipitor) 40 mg QHS PO Last administered on 12/25/16 20: 02; Admin Dose 40 MG; Start 12/18/16 at 21:00 Ferrous Sulfate (Ferrous Sulfate (Ec)) 325 mg BID PO Last administered on 20:02; Admin Dose 325 MG; Start 12/18/16 at 21:00 Metoprolol Tartrate (Lopressor) 50 mg BID PO Last administered on 12/25/16 20: 06; Admin Dose 50 MG; Start 12/18/16 at 21:00 Tramadol HCl (Ultram) 50 mg Q6H PRN PO PAIN; Start 12/18/16 at 19:00 Benazepril HCl (Lotensin) 40 mg DAILY PO Last administered on 12/25/16 09:49; Admin Dose 40 MG; Start 12/19/16 at 09:00 Nicotine (Nicoderm 21 Mg/ 24hr) 1 patch DAILY TRANSDERM Last administered on 09:50; Admin Dose 1 PATCH; Start 12/20/16 at 09:00 Nicotine Polacrilex (Nicorette) 2 mg Q2H PRN BUCCAL agitation; Start 12/20/16 at 09:30 Acetaminophen/ Hydrocodone Bitart ([place] ()) 1 tab Q4H PRN GTB pain Last administered on 12/25/16 09:50; Admin Dose 1 TAB; Start 12/20/16 at 10:00 Morphine Sulfate 3 mg 3 mg Q3H PRN IV SEVERE PAIN LEVEL 7-10 Last administered on 12/25/16 20:06; Admin Dose 3 MG; Start 12/20/16 at 11:00 Ceftriaxone Sodium (Rocephin) 50 ml @ 100 mls/hr Q24H IVPB Last administered on 12/25/16 16:54; Admin Dose 100 MLS/HR; Start 12/21/16 at 15:00 Zolpidem Tartrate (Ambien) 10 mg HS PRN PO INSOMNIA Last administered on 00:54; Admin Dose 10 MG; Start 12/24/16 at 01:00 SARANYA JONES MD Dec 25, 2016 21:00
[2016-12-25] MEDS: traMADol 50 MG TAB PO PRN (23:03)
[2016-12-26] VITALS (11 sets, daily range): BP systolic 99–148; BP diastolic 54–85; PULSE 66–83; RESP 16–22
[2016-12-26] MEDS: morphine 4 MG/ML VIAL IV PRN ×7 (02:07→21:27)
[2016-12-26 05:45] LABS: BASOPHIL # 0.1 10^3/ul (0.0-0.1); BASOPHILS % 1.6 % (0.0-2.0); EOSINOPHILS # 0.4 10^3/ul (0.0-0.5); EOSINOPHILS % 4.2 % (0.0-7.0); HEMATOCRIT 36.7 % (42.0-52.0); HEMOGLOBIN 11.8 g/dl (14.0-18.0); LYMPHOCYTES % 23.7 % (15.0-51.0); MEAN CORPUSCULAR HEMOGLOBIN 29.9 pg (29.0-33.0); MEAN CORPUSCULAR HGB CONC 32.2 g/dl (32.0-37.0); MEAN CORPUSCULAR VOLUME 92.9 fl (82.0-101.0); MEAN PLATELET VOLUME 9.4 fl (7.4-10.4); MONOCYTE # 1.2 10^3/ul (0.3-0.9); MONOCYTES % 14.3 % (0.0-11.0); NEUTROPHIL # 4.7 10^3/ul (1.6-7.5); NEUTROPHILS % 55.4 % (39.0-77.0); PLATELET COUNT 490 10^3/UL (140-415); RED BLOOD COUNT 3.95 10^6/ul (4.70-6.10); RED CELL DISTRIBUTION WIDTH 13.4 % (11.5-14.5); WHITE BLOOD COUNT 8.5 10^3/ul (4.8-10.8)
[2016-12-26 07:13] LABS: CALCIUM 9.1 mg/dl (8.4-10.2); CREATININE 0.98 mg/dl (0.61-1.24)
[2016-12-26] MEDS: FERROUS SULFATE (EC) 325 MG TAB PO SCH ×2 (08:21→21:29)
[2016-12-26] MEDS: AMLODIPINE 10 MG TAB PO SCH (08:21)
[2016-12-26] MEDS: METOPROLOL 50 MG TAB PO SCH ×2 (08:21→21:31)
[2016-12-26] MEDS: BENAZEPRIL 40 MG TAB PO SCH (08:22)
[2016-12-26] MEDS: NICOTINE (21 MG/24 HR) PATCH TRANSDERM SCH (08:22)
--- NOTE | 2016-12-26 09:48 | PN ---
Date/Time of Note Date/Time of Note DATE: 12/26/16 TIME: 09:46 Assessment/Plan VTE Prophylaxis VTE Prophylaxis Intervention: LMWH Lines/Catheters [facility] Saline Lock Urinary Cath still in place: No Assessment/Plan Chief Complaint/Hosp Course Assessment/Plan: 61 yo M here with wound infection, concern for prosthetic joint infection v wound infection Found to have S Aureus bacteremia. Patient also had I&D x 2 this admission, now with wound vac placement (and arthrocentesis 12.21) PLAN: - Ortho following -follow-up final joint washout culture results, follow-up postop recommendations, -continue Rocephin antibiotic per infectious disease recommendations as the blood cultures and wound culture are positive for MSSA (per documentation from infectious disease, may be able to be switched to Cipro 4-6 weeks upon discharge). -For another I&D procedure today/washout by orthotic, follow-up postop recommendations - Of note, TTE was without clear vegetation though mitral valve thickening. ID on consult - cont home meds for patient's hypertension and high cholesterol. - Counseled on smoking cessation. Continue nicotine patch as well -Follow-up case management consult regarding possible placement needs Problems: Subjective 24 Hr Interval Summary Free Text/Dictation No acute events overnight, awaiting another I&D procedure to be performed later today orthopedic surgery team. Exam/Review of Systems Vital Signs Vitals Vital Signs Date Time Temp Pulse Resp B/P Pulse Ox O2 Delivery O2 Flow Rate FiO2 12/26/16 07:50 97.7 82 18 145/76 98 12/25/16 09:47 Room Air Intake and Output 12/25/16 12/25/16 12/26/16 15:00 23:00 07:00 Intake Total 1250 ml Balance 1250 ml Exam Alert, answering questions, sitting on edge of bed, no acute distress EOMI R shoulder with 4 cm incision at lateral aspect, +.5cm with some surrounding erythema and induration on both sides no mrg lungs clear abd soft no rashes Results Result Diagram: 12/26/1618 12/26/1618 Results 24 hrs Laboratory Tests Test 12/26/16 05:18 White Blood Count 8.5 Red Blood Count 3.95 L Hemoglobin 11.8 L Hematocrit 36.7 L Mean Corpuscular Volume 92.9 Mean Corpuscular Hemoglobin 29.9 Mean Corpuscular Hemoglobin Concent 32.2 Red Cell Distribution Width 13.4 Platelet Count 490 H Mean Platelet Volume 9.4 Neutrophils % 55.4 Lymphocytes % 23.7 Monocytes % 14.3 H Eosinophils % 4.2 Basophils % 1.6 Nucleated Red Blood Cells % 0.0 Neutrophils # 4.7 Lymphocytes # 2.0 Monocytes # 1.2 H Eosinophils # 0.4 Basophils # 0.1 Nucleated Red Blood Cells # 0.0 Sodium Level 136 Potassium Level 5.0 Chloride Level 97 Carbon Dioxide Level 33 H Anion Gap 11 Blood Urea Nitrogen 18 Creatinine 0.98 Glucose Level 95 Calcium Level 9.1 Medications Medications Current Medications Acetaminophen (Tylenol Tab) 650 mg Q6H PRN PO PAIN LEVEL 1-3 OR FEVER; Start at 19:00 Acetaminophen/ Hydrocodone Bitart ([place] (5/325)) 1 tab Q6H PRN PO MODERATE PAIN LEVEL 4-6 Last administered on 12/24/16 07:07; Admin Dose 1 TAB; Start at 19:00 Acetaminophen/ Hydrocodone Bitart ([place] (5/325)) 2 tab Q6H PRN PO SEVERE PAIN LEVEL 7-10 Last administered on 12/20/16 09:01; Admin Dose 2 TAB; Start at 19:00 Enoxaparin Sodium (Lovenox) 40 mg DAILY SC Last administered on 12/22/16 09:21 ; Admin Dose 40 MG; Start 12/19/16 at 09:00; Status Future Hold Amlodipine Besylate (Norvasc) 10 mg DAILY PO Last administered on 12/26/16 08: 21; Admin Dose 10 MG; Start 12/19/16 at 09:00 Atorvastatin Calcium (Lipitor) 40 mg QHS PO Last administered on 12/25/16 20: 02; Admin Dose 40 MG; Start 12/18/16 at 21:00 Ferrous Sulfate (Ferrous Sulfate (Ec)) 325 mg BID PO Last administered on 08:21; Admin Dose 325 MG; Start 12/18/16 at 21:00 Metoprolol Tartrate (Lopressor) 50 mg BID PO Last administered on 12/26/16 08: 21; Admin Dose 50 MG; Start 12/18/16 at 21:00 Tramadol HCl (Ultram) 50 mg Q6H PRN PO PAIN Last administered on 12/25/16 23: 03; Admin Dose 50 MG; Start 12/18/16 at 19:00 Benazepril HCl (Lotensin) 40 mg DAILY PO Last administered on 12/26/16 08:22; Admin Dose 40 MG; Start 12/19/16 at 09:00 Nicotine (Nicoderm 21 Mg/ 24hr) 1 patch DAILY TRANSDERM Last administered on 08:22; Admin Dose 1 PATCH; Start 12/20/16 at 09:00 Nicotine Polacrilex (Nicorette) 2 mg Q2H PRN BUCCAL agitation; Start 12/20/16 at 09:30 Acetaminophen/ Hydrocodone Bitart ([place] (10325)) 1 tab Q4H PRN GTB pain Last administered on 12/25/16 09:50; Admin Dose 1 TAB; Start 12/20/16 at 10:00 Morphine Sulfate 3 mg 3 mg Q3H PRN IV SEVERE PAIN LEVEL 7-10 Last administered on 12/26/16 08:22; Admin Dose 3 MG; Start 12/20/16 at 11:00 Ceftriaxone Sodium (Rocephin) 50 ml @ 100 mls/hr Q24H IVPB Last administered on 12/25/16 16:54; Admin Dose 100 MLS/HR; Start 12/21/16 at 15:00 Zolpidem Tartrate (Ambien) 10 mg HS PRN PO INSOMNIA Last administered on 00:54; Admin Dose 10 MG; Start 12/24/16 at 01:00 NADRES TRAN Dec 26, 2016 09:48
--- NOTE | 2016-12-26 13:51 | CONS ---
Date/Time of Note Date/Time of Note DATE: 12/26/16 TIME: 13:50 Assessment/Plan Assessment/Plan Chief Complaint/Hosp Course No acute events overnight per report, no fevers, patient is sleeping, looks comfortable Physical examination: well-nourished well-developed middle-aged man who is in no distress head atraumatic normocephalic sclerae anicteric neck is supple chest rise symmetrical breath sounds clear heart S1-S2 abdomen soft bowel sounds present extremities without cyanosis skin with right upper back wound to wound VAC Assessment: 1. Status post oxacillin sensitive staph aureus bacteremia secondary to #2 2. Right posterior shoulder infected wound, status post I&D with wound VAC application, status post arthrocentesis of right anterior shoulder Plan: Patient remains stable, covered with appropriate antibiotics, continue present care, follow or to recommendations. Anticipate discharge on oral ciprofloxacin for 4 weeks Problems: Consultation Date/Type/Reason Admit Date/Time Dec 18, 2016 at 17:39 Type of Consultation: id Exam/Review of Systems Vital Signs Vitals Vital Signs Date Time Temp Pulse Resp B/P Pulse Ox O2 Delivery O2 Flow Rate FiO2 12/26/16 07:50 97.7 82 18 145/76 98 12/25/16 09:47 Room Air Intake and Output 12/25/16 12/25/16 12/26/16 15:00 23:00 07:00 Intake Total 1250 ml Balance 1250 ml Results Result Diagram: 12/26/16 0518 12/26/16 0518 Results 24 hrs Laboratory Tests Test 12/26/16 05:18 White Blood Count 8.5 Red Blood Count 3.95 L Hemoglobin 11.8 L Hematocrit 36.7 L Mean Corpuscular Volume 92.9 Mean Corpuscular Hemoglobin 29.9 Mean Corpuscular Hemoglobin Concent 32.2 Red Cell Distribution Width 13.4 Platelet Count 490 H Mean Platelet Volume 9.4 Neutrophils % 55.4 Lymphocytes % 23.7 Monocytes % 14.3 H Eosinophils % 4.2 Basophils % 1.6 Nucleated Red Blood Cells % 0.0 Neutrophils # 4.7 Lymphocytes # 2.0 Monocytes # 1.2 H Eosinophils # 0.4 Basophils # 0.1 Nucleated Red Blood Cells # 0.0 Sodium Level 136 Potassium Level 5.0 Chloride Level 97 Carbon Dioxide Level 33 H Anion Gap 11 Blood Urea Nitrogen 18 Creatinine 0.98 Glucose Level 95 Calcium Level 9.1 Medications Medications Current Medications Acetaminophen (Tylenol Tab) 650 mg Q6H PRN PO PAIN LEVEL 1-3 OR FEVER; Start at 19:00 Acetaminophen/ Hydrocodone Bitart ([place] (5/325)) 1 tab Q6H PRN PO MODERATE PAIN LEVEL 4-6 Last administered on 12/24/16 07:07; Admin Dose 1 TAB; Start at 19:00 Acetaminophen/ Hydrocodone Bitart ([place] (5/325)) 2 tab Q6H PRN PO SEVERE PAIN LEVEL 7-10 Last administered on 12/20/16 09:01; Admin Dose 2 TAB; Start at 19:00 Enoxaparin Sodium (Lovenox) 40 mg DAILY SC Last administered on 12/22/16 09:21 ; Admin Dose 40 MG; Start 12/19/16 at 09:00; Status Future Hold Amlodipine Besylate (Norvasc) 10 mg DAILY PO Last administered on 12/26/16 08: 21; Admin Dose 10 MG; Start 12/19/16 at 09:00 Atorvastatin Calcium (Lipitor) 40 mg QHS PO Last administered on 12/25/16 20: 02; Admin Dose 40 MG; Start 12/18/16 at 21:00 Ferrous Sulfate (Ferrous Sulfate (Ec)) 325 mg BID PO Last administered on 08:21; Admin Dose 325 MG; Start 12/18/16 at 21:00 Metoprolol Tartrate (Lopressor) 50 mg BID PO Last administered on 12/26/16 08: 21; Admin Dose 50 MG; Start 12/18/16 at 21:00 Tramadol HCl (Ultram) 50 mg Q6H PRN PO PAIN Last administered on 12/25/16 23: 03; Admin Dose 50 MG; Start 12/18/16 at 19:00 Benazepril HCl (Lotensin) 40 mg DAILY PO Last administered on 12/26/16 08:22; Admin Dose 40 MG; Start 12/19/16 at 09:00 Nicotine (Nicoderm 21 Mg/ 24hr) 1 patch DAILY TRANSDERM Last administered on 08:22; Admin Dose 1 PATCH; Start 12/20/16 at 09:00 Nicotine Polacrilex (Nicorette) 2 mg Q2H PRN BUCCAL agitation; Start 12/20/16 at 09:30 Acetaminophen/ Hydrocodone Bitart ([place] (10)) 1 tab Q4H PRN GTB pain Last administered on 12/25/16 09:50; Admin Dose 1 TAB; Start 12/20/16 at 10:00 Morphine Sulfate 3 mg 3 mg Q3H PRN IV SEVERE PAIN LEVEL 7-10 Last administered on 12/26/16 11:24; Admin Dose 3 MG; Start 12/20/16 at 11:00 Ceftriaxone Sodium (Rocephin) 50 ml @ 100 mls/hr Q24H IVPB Last administered on 12/25/16 16:54; Admin Dose 100 MLS/HR; Start 12/21/16 at 15:00 Zolpidem Tartrate (Ambien) 10 mg HS PRN PO INSOMNIA Last administered on 00:54; Admin Dose 10 MG; Start 12/24/16 at 01:00 MICHELE COUCH NP Dec 26, 2016 13:51
[2016-12-26] MEDS: CEFTRIAXONE 1 GM/50 ML (PMX) 50 ML IVPB SCH (14:20)
--- NOTE | 2016-12-26 15:31 | HPN ---
Date/Time of Note Date/Time of Note DATE: 12/26/16 TIME: 15:31 Interval H&P Admission Note Pt. seen H&P reviewed: No system changes SARANYA JONES MD Dec 26, 2016 15:31
[2016-12-26] MEDS ORDERED: MIDAZOLAM 1 MG/ML 2 ML INJ ONE (16:09)
[2016-12-26] MEDS ORDERED: FENTAnyl 50 MCG/ML VIAL ONE (16:23)
[2016-12-26] MEDS ORDERED: KETAMINE 500 MG INJ ONE (16:23)
[2016-12-26] MEDS ORDERED: METOCLOPRAMIDE 10 MG INJ ONE (16:35)
[2016-12-26] MEDS ORDERED: PROPOFOL 20 ML ONE (16:35)
[2016-12-26] MEDS ORDERED: LIDOCAINE 2% (SDV) 5 ML INJ ONE (16:35)
[2016-12-26] MEDS ORDERED: ONDANSETRON 4 MG INJ ONE (16:35)
--- NOTE | 2016-12-26 16:54 | SIPON ---
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
[2016-12-26] MEDS ORDERED: MEPERIDINE 25 MG INJ IV PRN (17:30)
[2016-12-26] MEDS ORDERED: KETOROLAC 15 MG INJ IV PRN (17:30)
[2016-12-26] MEDS ORDERED: LABETALOL HCL 20MG INJ IV PRN (17:30)
[2016-12-26] MEDS ORDERED: PROCHLORPERAZINE 10 MG INJ IV PRN (17:30)
[2016-12-26] MEDS ORDERED: OXYCODONE/ACETAMINOPHEN (5/325) TAB PO PRN (17:30)
[2016-12-26] MEDS ORDERED: DIPHENHYDRAMINE 50 MG INJ IV PRN (17:30)
[2016-12-26] MEDS ORDERED: ONDANSETRON 4 MG INJ IV PRN (17:30)
[2016-12-26] MEDS ORDERED: hydrALAzine 20 MG INJ IV PRN (17:30)
[2016-12-26] MEDS ORDERED: FENTAnyl 50 MCG/ML VIAL IV PRN (17:30)
--- NOTE | 2016-12-26 20:30 | OPR ---
DATE OF OPERATION: 12/26/2016 SURGEON: Roland Casillas MD ANESTHESIOLOGIST: Dr. Adams. ANESTHESIA: Anesthesia MAC. PREOPERATIVE DIAGNOSIS: Right posterior shoulder wound infection. POSTOPERATIVE DIAGNOSIS: Right posterior shoulder wound infection. OPERATION PERFORMED: 1. Irrigation debridement, right posterior shoulder wound. 2. Application of negative pressure wound VAC therapy less than 50 square cm. INDICATIONS: This is a patient who has been in a hospital for 1 week now, undergoing treatment for a posterior wound infection status post-previous surgery. Risks of surgery, the pain, bleeding, infection, scar, damage to vascular structures, failure of the surgery were blood clots of upper extremities, lower extremities, pulmonary embolism, risk of anesthesia, were explained. Patient elected to proceed. INTRAOPERATIVE OBSERVATION: The wound is significantly improved from all previous procedures. There was no active purulence visible. No signs of any active pus or pockets of fluid, with clean and healthy granulation bed forming. OPERATIVE PROCEDURE: Procedure detail the patient was marked and identified in preoperative holding, brought to the operating room and placed supine on the operating table. Patient was placed under conscious sedation. The patient then placed in the lateral decubitus position with a de la rosa bag. His bony prominences well padded. Care was taken to pad and maintain appropriate position, refer his bilateral total shoulder arthroplasties. His right posterior flank was then prepped and draped in the usual sterile fashion. A time-out was performed. The procedure was initiated with removal of the previous wound VAC and then sterile dressing, and then 9 L of normal saline was irrigated through the wound with a curettage and blunt instrumentation used to appropriately scrubbed all services, there was clean granulation bed visible. There was no signs of any active purulence, and is significantly improved from all previous procedures. At the completion of 9 L, a silver sponge wound VAC antibiotic sponge was fashioned and placed within the wound. The size of this was 5 cm x 3 cm x 3 cm, and then the tape was applied to the wound VAC was attached to the machine and found have excellent suction. This terminated the procedure. The patient was awakened in the operating room, brought to recovery in stable condition. The plan for him, if he continues to progress in this good manner, will be for one final irrigation debridement in the operating room Thursday and transition to floor wound VAC changes. There is always a possibility of regression and worsening of his symptoms, which will then change our plan. Dictated By: Roland Casillas MD /thomas/heath /Document#: [id number]
[2016-12-26] MEDS: ATORVASTATIN 40 MG TAB PO SCH (21:29)
[2016-12-26] MEDS: HYDROCODONE/APAP (10/325) TAB GTB PRN (22:37)
[2016-12-27] MEDS: morphine 4 MG/ML VIAL IV PRN ×7 (00:45→23:01)
[2016-12-27 01:43] VITALS: BP 120/68; RESP 20
[2016-12-27] MEDS: HYDROCODONE/APAP (10/325) TAB GTB PRN (02:43)
[2016-12-27] MEDS: ZOLPIDEM 5 MG TAB PO PRN ×2 (02:48→23:54)
[2016-12-27 06:04] LABS: BASOPHIL # 0.2 10^3/ul (0.0-0.1); BASOPHILS % 1.9 % (0.0-2.0); EOSINOPHILS # 0.4 10^3/ul (0.0-0.5); HEMATOCRIT 36.6 % (42.0-52.0); HEMOGLOBIN 11.8 g/dl (14.0-18.0); LYMPHOCYTES # 2.2 10^3/ul (0.8-2.9); LYMPHOCYTES % 24.3 % (15.0-51.0); MEAN CORPUSCULAR HEMOGLOBIN 30.3 pg (29.0-33.0); MEAN CORPUSCULAR HGB CONC 32.2 g/dl (32.0-37.0); MEAN CORPUSCULAR VOLUME 94.1 fl (82.0-101.0); MONOCYTE # 1.1 10^3/ul (0.3-0.9); MONOCYTES % 11.7 % (0.0-11.0); NEUTROPHIL # 5.3 10^3/ul (1.6-7.5); NEUTROPHILS % 57.4 % (39.0-77.0); PLATELET COUNT 392 10^3/UL (140-415); POSITIVE DIFF @See below; RED BLOOD COUNT 3.89 10^6/ul (4.70-6.10); RED CELL DISTRIBUTION WIDTH 13.7 % (11.5-14.5); WHITE BLOOD COUNT 9.2 10^3/ul (4.8-10.8)
[2016-12-27 06:26] LABS: CALCIUM 8.9 mg/dl (8.4-10.2); CREATININE 1.2 mg/dl (0.61-1.24); POTASSIUM 5.5 mmol/L (3.5-5.1)
[2016-12-27 07:26] VITALS: BP 113/55; RESP 20
[2016-12-27] MEDS: FERROUS SULFATE (EC) 325 MG TAB PO SCH ×2 (08:15→21:00)
[2016-12-27] MEDS: METOPROLOL 50 MG TAB PO SCH ×2 (08:15→21:00)
[2016-12-27] MEDS: BENAZEPRIL 40 MG TAB PO SCH (08:16)
[2016-12-27] MEDS: AMLODIPINE 10 MG TAB PO SCH (08:16)
[2016-12-27] MEDS: HYDROCODONE/APAP (5/325) TAB PO PRN ×2 (08:17→14:57)
[2016-12-27] MEDS: NICOTINE (21 MG/24 HR) PATCH TRANSDERM SCH (08:17)
--- NOTE | 2016-12-27 11:09 | PN ---
Date/Time of Note Date/Time of Note DATE: 12/27/16 TIME: 11:08 Assessment/Plan VTE Prophylaxis VTE Prophylaxis Intervention: SCD's Lines/Catheters IV [facility] Saline Lock Urinary Cath still in place: No Assessment/Plan Chief Complaint/Hosp Course Assessment/Plan: 61 yo M here with wound infection, concern for prosthetic joint infection v wound infection Found to have S Aureus bacteremia. Patient also had I&D x 3 this admission, now with wound vac placement (and arthrocentesis 12.21) PLAN: - Ortho following -follow-up final joint washout culture results, follow-up postop recommendations -continue Rocephin antibiotic per infectious disease recommendations as the blood cultures and wound culture are positive for MSSA (per documentation from infectious disease, may be able to be switched to Cipro 4-6 weeks upon discharge). -For another I&D procedure in 2 days by ortho, follow-up postop recommendations - Of note, TTE was without clear vegetation though mitral valve thickening. ID on consult - cont home meds for patient's hypertension and high cholesterol. - Counseled on smoking cessation. Continue nicotine patch as well -Follow-up case management consult regarding possible placement needs Problems: Subjective 24 Hr Interval Summary Free Text/Dictation Patient had another I&D surgery performed yesterday of his shoulder, no acute events overnight. Exam/Review of Systems Vital Signs Vitals Vital Signs Date Time Temp Pulse Resp B/P Pulse Ox O2 Delivery O2 Flow Rate FiO2 12/27/16 07:26 98.4 68 20 113/55 97 12/26/16 17:29 Room Air 12/26/16 17:15 2.0 Intake and Output 12/26/16 12/26/16 12/27/16 15:00 23:00 07:00 Intake Total 09202 ml 1000 ml Output Total 15 ml 25 ml Balance 27653 ml 975 ml Exam Alert, answering questions, sitting on edge of bed, no acute distress EOMI R shoulder with 4 cm incision at lateral aspect, +.5cm with some surrounding erythema and induration on both sides no mrg lungs clear abd soft no rashes Results Result Diagram: 12/27/16 0537 12/27/16 0537 Results 24 hrs Laboratory Tests Test 12/27/16 05:37 White Blood Count 9.2 Red Blood Count 3.89 L Hemoglobin 11.8 L Hematocrit 36.6 L Mean Corpuscular Volume 94.1 Mean Corpuscular Hemoglobin 30.3 Mean Corpuscular Hemoglobin Concent 32.2 Red Cell Distribution Width 13.7 Platelet Count 392 Mean Platelet Volume 11.0 H Neutrophils % 57.4 Lymphocytes % 24.3 Monocytes % 11.7 H Eosinophils % 4.0 Basophils % 1.9 Nucleated Red Blood Cells % 0.0 Neutrophils # 5.3 Lymphocytes # 2.2 Monocytes # 1.1 H Eosinophils # 0.4 Basophils # 0.2 H Nucleated Red Blood Cells # 0.0 Sodium Level 134 L Potassium Level 5.5 H Chloride Level 101 Carbon Dioxide Level 24 Anion Gap 15 Blood Urea Nitrogen 25 H Creatinine 1.20 Glucose Level 121 Calcium Level 8.9 Medications Medications Current Medications Acetaminophen (Tylenol Tab) 650 mg Q6H PRN PO PAIN LEVEL 1-3 OR FEVER; Start at 19:00 Acetaminophen/ Hydrocodone Bitart ([place] (5/325)) 1 tab Q6H PRN PO MODERATE PAIN LEVEL 4-6 Last administered on 12/27/16 08:17; Admin Dose 1 TAB; Start at 19:00 Acetaminophen/ Hydrocodone Bitart ([place] (5/325)) 2 tab Q6H PRN PO SEVERE PAIN LEVEL 7-10 Last administered on 12/20/16 09:01; Admin Dose 2 TAB; Start at 19:00 Enoxaparin Sodium (Lovenox) 40 mg DAILY SC Last administered on 12/22/16 09:21 ; Admin Dose 40 MG; Start 12/19/16 at 09:00; Status Future Hold Amlodipine Besylate (Norvasc) 10 mg DAILY PO Last administered on 12/27/16 08: 16; Admin Dose 10 MG; Start 12/19/16 at 09:00 Atorvastatin Calcium (Lipitor) 40 mg QHS PO Last administered on 12/26/16 21: 29; Admin Dose 40 MG; Start 12/18/16 at 21:00 Ferrous Sulfate (Ferrous Sulfate (Ec)) 325 mg BID PO Last administered on 08:15; Admin Dose 325 MG; Start 12/18/16 at 21:00 Metoprolol Tartrate (Lopressor) 50 mg BID PO Last administered on 12/27/16 08: 15; Admin Dose 50 MG; Start 12/18/16 at 21:00 Tramadol HCl (Ultram) 50 mg Q6H PRN PO PAIN Last administered on 12/25/16 23: 03; Admin Dose 50 MG; Start 12/18/16 at 19:00 Benazepril HCl (Lotensin) 40 mg DAILY PO Last administered on 12/27/16 08:16; Admin Dose 40 MG; Start 12/19/16 at 09:00 Nicotine (Nicoderm 21 Mg/ 24hr) 1 patch DAILY TRANSDERM Last administered on 08:17; Admin Dose 1 PATCH; Start 12/20/16 at 09:00 Nicotine Polacrilex (Nicorette) 2 mg Q2H PRN BUCCAL agitation; Start 12/20/16 at 09:30 Acetaminophen/ Hydrocodone Bitart ([place] (10/325)) 1 tab Q4H PRN GTB pain Last administered on 12/27/16 02:43; Admin Dose 1 TAB; Start 12/20/16 at 10:00 Morphine Sulfate 3 mg 3 mg Q3H PRN IV SEVERE PAIN LEVEL 7-10 Last administered on 12/27/16 10:05; Admin Dose 3 MG; Start 12/20/16 at 11:00 Ceftriaxone Sodium (Rocephin) 50 ml @ 100 mls/hr Q24H IVPB Last administered on 12/26/16 14:20; Admin Dose 100 MLS/HR; Start 12/21/16 at 15:00 Zolpidem Tartrate (Ambien) 10 mg HS PRN PO INSOMNIA Last administered on 02:48; Admin Dose 10 MG; Start 12/24/16 at 01:00 ANDRES TRAN Dec 27, 2016 11:09
--- NOTE | 2016-12-27 12:00 | CONS ---
Date/Time of Note Date/Time of Note DATE: 12/27/16 TIME: 11:59 Assessment/Plan Assessment/Plan Chief Complaint/Hosp Course ID PROGRESS NOTE TOTAL ABX DAY # CURRENT ABX=> Ceftriaxone 24H INTERVAL SUMMARY * A/A/O -> VSS, NAD, no fevers, pain is controlled * POD #1 -> s/p 1. Irrigation debridement, right posterior shoulder wound. 2. Application of negative pressure wound VAC therapy less than50 square cm. GENERAL: VSS, NAD HEENT: Unremarkable NECK: Trach midline, full ROM CHEST: Rise symmetrical without dyspnea on observation ABDOMEN: Soft, EXTREMITIES: Warm,(+) moves extremities SKIN: No diaphoresis, no rash ID ASSESSMENT: 61 yo M admit with: 1. Status post oxacillin sensitive staph aureus bacteremia 12/18/16 secondary to #2 2. Right posterior shoulder prosthetic joint/cellulitis * s/p Arthrocentesis 12/21/16 wound cx(+) * WOUND CULTURE Final Organism 1 STAPHYLOCOCCUS AUREUS QUANTITY RARE S AUREUS M.I.C. RX --------- --- CEFAZOLIN S CIPROFLOXACIN <=0.5 S CLINDAMYCIN <=0.25 S DOXYCYCLINE S ERYTHROMYCIN 0.5 S LEVOFLOXACIN 0.25 S OXACILLIN 0.5 S PENICILLIN-G >=0.5 R RIFAMPIN <=0.5 S VANCOMYCIN 1 S TRIMETHOPRIM/SULFAMETHOXAZOLE <=10 S 3. POD #1 -> s/p 1. Irrigation debridement, right posterior shoulder wound. 2. Application of negative pressure wound VAC therapy less than50 square cm. INVASIVES: PIV ABX ALLERGY: PCN/SULFA TOTAL ABX DAY # CURRENT ABX=> Ceftriaxone ID PLAN 1. Continue current ABX, he has Sulfa allergy; hence not able to taper ABX to PO Bactrim. 2. Continue IV ABX over the weekend, ID team to discuss with primary and ortho surgeon on length of ABX course . Problems: Consultation Date/Type/Reason Admit Date/Time Dec 18, 2016 at 17:39 Initial Consult Date Type of Consultation: id Exam/Review of Systems Vital Signs Vitals Vital Signs Date Time Temp Pulse Resp B/P Pulse Ox O2 Delivery O2 Flow Rate FiO2 12/27/16 07:26 98.4 68 20 113/55 97 9/29/17 17:29 Room Air 12/26/16 17:15 2.0 Intake and Output 12/26/16 12/26/16 12/27/16 15:00 23:00 07:00 Intake Total 30576 ml 1000 ml Output Total 15 ml 25 ml Balance 86829 ml 975 ml Results Result Diagram: 12/27/16 0537 12/27/16 0537 Results 24 hrs Laboratory Tests Test 12/27/16 05:37 White Blood Count 9.2 Red Blood Count 3.89 L Hemoglobin 11.8 L Hematocrit 36.6 L Mean Corpuscular Volume 94.1 Mean Corpuscular Hemoglobin 30.3 Mean Corpuscular Hemoglobin Concent 32.2 Red Cell Distribution Width 13.7 Platelet Count 392 Mean Platelet Volume 11.0 H Neutrophils % 57.4 Lymphocytes % 24.3 Monocytes % 11.7 H Eosinophils % 4.0 Basophils % 1.9 Nucleated Red Blood Cells % 0.0 Neutrophils # 5.3 Lymphocytes # 2.2 Monocytes # 1.1 H Eosinophils # 0.4 Basophils # 0.2 H Nucleated Red Blood Cells # 0.0 Sodium Level 134 L Potassium Level 5.5 H Chloride Level 101 Carbon Dioxide Level 24 Anion Gap 15 Blood Urea Nitrogen 25 H Creatinine 1.20 Glucose Level 121 Calcium Level 8.9 Medications Medications Current Medications Acetaminophen (Tylenol Tab) 650 mg Q6H PRN PO PAIN LEVEL 1-3 OR FEVER; Start at 19:00 Acetaminophen/ Hydrocodone Bitart ([place] (5/325)) 1 tab Q6H PRN PO MODERATE PAIN LEVEL 4-6 Last administered on 12/27/16 08:17; Admin Dose 1 TAB; Start at 19:00 Acetaminophen/ Hydrocodone Bitart ([place] (5/325)) 2 tab Q6H PRN PO SEVERE PAIN LEVEL 7-10 Last administered on 12/20/16 09:01; Admin Dose 2 TAB; Start at 19:00 Enoxaparin Sodium (Lovenox) 40 mg DAILY SC Last administered on 12/22/16 09:21 ; Admin Dose 40 MG; Start 12/19/16 at 09:00; Status Future Hold Amlodipine Besylate (Norvasc) 10 mg DAILY PO Last administered on 12/27/16 08: 16; Admin Dose 10 MG; Start 12/19/16 at 09:00 Atorvastatin Calcium (Lipitor) 40 mg QHS PO Last administered on 12/26/16 21: 29; Admin Dose 40 MG; Start 12/18/16 at 21:00 Ferrous Sulfate (Ferrous Sulfate (Ec)) 325 mg BID PO Last administered on 08:15; Admin Dose 325 MG; Start 12/18/16 at 21:00 Metoprolol Tartrate (Lopressor) 50 mg BID PO Last administered on 12/27/16 08: 15; Admin Dose 50 MG; Start 12/18/16 at 21:00 Tramadol HCl (Ultram) 50 mg Q6H PRN PO PAIN Last administered on 12/25/16 23: 03; Admin Dose 50 MG; Start 12/18/16 at 19:00 Benazepril HCl (Lotensin) 40 mg DAILY PO Last administered on 12/27/16 08:16; Admin Dose 40 MG; Start 12/19/16 at 09:00 Nicotine (Nicoderm 21 Mg/ 24hr) 1 patch DAILY TRANSDERM Last administered on 08:17; Admin Dose 1 PATCH; Start 12/20/16 at 09:00 Nicotine Polacrilex (Nicorette) 2 mg Q2H PRN BUCCAL agitation; Start 12/20/16 at 09:30 Acetaminophen/ Hydrocodone Bitart ([place] (10/325)) 1 tab Q4H PRN GTB pain Last administered on 12/27/16 02:43; Admin Dose 1 TAB; Start 12/20/16 at 10:00 Morphine Sulfate 3 mg 3 mg Q3H PRN IV SEVERE PAIN LEVEL 7-10 Last administered on 12/27/16 10:05; Admin Dose 3 MG; Start 12/20/16 at 11:00 Ceftriaxone Sodium (Rocephin) 50 ml @ 100 mls/hr Q24H IVPB Last administered on 12/26/16 14:20; Admin Dose 100 MLS/HR; Start 12/21/16 at 15:00 Zolpidem Tartrate (Ambien) 10 mg HS PRN PO INSOMNIA Last administered on 02:48; Admin Dose 10 MG; Start 12/24/16 at 01:00 LEONCIO FAULKNER NP Dec 27, 2016 12:00
[2016-12-27 13:04] VITALS: BP 116/66; RESP 20
[2016-12-27 13:40] LABS: CALCIUM 8.6 mg/dl (8.4-10.2); CREATININE 1.43 mg/dl (0.61-1.24); POTASSIUM 5.5 mmol/L (3.5-5.1)
[2016-12-27] MEDS: CEFTRIAXONE 1 GM/50 ML (PMX) 50 ML IVPB SCH (14:57)
[2016-12-27 20:00] VITALS: BP 121/62; RESP 20
[2016-12-27] MEDS: ATORVASTATIN 40 MG TAB PO SCH (21:00)
[2016-12-28 02:00] VITALS: BP 123/72; RESP 20
[2016-12-28] MEDS: morphine 4 MG/ML VIAL IV PRN ×6 (04:46→21:25)
[2016-12-28 07:00] LABS: BASOPHIL # 0.2 10^3/ul (0.0-0.1); BASOPHILS % 1.6 % (0.0-2.0); EOSINOPHILS # 0.3 10^3/ul (0.0-0.5); EOSINOPHILS % 3.2 % (0.0-7.0); HEMATOCRIT 36.6 % (42.0-52.0); LYMPHOCYTES # 2.1 10^3/ul (0.8-2.9); LYMPHOCYTES % 22.9 % (15.0-51.0); MEAN CORPUSCULAR HEMOGLOBIN 30.2 pg (29.0-33.0); MEAN CORPUSCULAR HGB CONC 32.8 g/dl (32.0-37.0); MEAN PLATELET VOLUME 9.6 fl (7.4-10.4); MONOCYTES % 11.2 % (0.0-11.0); NEUTROPHIL # 5.6 10^3/ul (1.6-7.5); NEUTROPHILS % 60.6 % (39.0-77.0); PLATELET COUNT 557 10^3/UL (140-415); RED BLOOD COUNT 3.98 10^6/ul (4.70-6.10); RED CELL DISTRIBUTION WIDTH 13.6 % (11.5-14.5); WHITE BLOOD COUNT 9.3 10^3/ul (4.8-10.8)
[2016-12-28 07:36] LABS: CALCIUM 8.9 mg/dl (8.4-10.2); CREATININE 1.08 mg/dl (0.61-1.24); POTASSIUM 4.7 mmol/L (3.5-5.1)
[2016-12-28 07:39] VITALS: BP 158/74; RESP 20
[2016-12-28] MEDS: AMLODIPINE 10 MG TAB PO SCH (08:22)
[2016-12-28] MEDS: BENAZEPRIL 40 MG TAB PO SCH (08:22)
[2016-12-28] MEDS: FERROUS SULFATE (EC) 325 MG TAB PO SCH ×2 (08:22→21:23)
[2016-12-28] MEDS: NICOTINE (21 MG/24 HR) PATCH TRANSDERM SCH (08:23)
[2016-12-28] MEDS: METOPROLOL 50 MG TAB PO SCH ×2 (08:23→21:29)
--- NOTE | 2016-12-28 10:04 | PN ---
Date/Time of Note Date/Time of Note DATE: 12/28/16 TIME: 10:00 Assessment/Plan VTE Prophylaxis VTE Prophylaxis Intervention: SCD's Lines/Catheters IV [facility] Type ([facility] [place] Urinary Cath still in place: No Assessment/Plan Chief Complaint/Hosp Course Assessment/Plan: 61 yo M here with wound infection, concern for prosthetic joint infection v wound infection Found to have S Aureus bacteremia. Patient also had I&D x 3 this admission, now with wound vac placement (and arthrocentesis 12.21) PLAN: - Ortho following -follow-up final joint washout culture results, follow-up postop recommendations -continue Rocephin antibiotic per infectious disease recommendations as the blood cultures and wound culture are positive for MSSA (will try to discuss with orthopedic team and infectious disease team about length of treatment for antibiotics at this point) -For another I&D procedure in 1 day (Thursday) by ortho, follow-up postop recommendations - Of note, TTE was without clear vegetation though mitral valve thickening. ID on consult - cont home meds for patient's hypertension and high cholesterol. - Counseled on smoking cessation. Continue nicotine patch as well -Follow-up case management consult regarding possible placement needs Problems: Subjective 24 Hr Interval Summary Free Text/Dictation No acute events overnight, seen by infectious disease team yesterday. No fevers. Exam/Review of Systems Vital Signs Vitals Vital Signs Date Time Temp Pulse Resp B/P Pulse Ox O2 Delivery O2 Flow Rate FiO2 12/28/16 07:39 98.4 72 20 158/74 98 12/26/16 17:29 Room Air 12/26/16 17:15 2.0 Intake and Output 12/27/16 12/27/16 12/28/16 15:00 23:00 07:00 Intake Total 2450 ml 1110 ml Balance 2450 ml 1110 ml Exam Alert, answering questions, sitting on edge of bed, no acute distress EOMI R shoulder with 4 cm incision at lateral aspect, +.5cm with some surrounding erythema and induration on both sides no mrg lungs clear abd soft no rashes Results Result Diagram: 12/28/16 0501 12/28/16 0501 Results 24 hrs Laboratory Tests Test 12/27/16 12:20 12/28/16 05:01 Sodium Level 136 138 Potassium Level 5.5 H 4.7 Chloride Level 98 98 Carbon Dioxide Level 30 31 Anion Gap 14 14 Blood Urea Nitrogen 26 H 21 H Creatinine 1.43 H 1.08 Glucose Level 107 96 Calcium Level 8.6 8.9 White Blood Count 9.3 Red Blood Count 3.98 L Hemoglobin 12.0 L Hematocrit 36.6 L Mean Corpuscular Volume 92.0 Mean Corpuscular Hemoglobin 30.2 Mean Corpuscular Hemoglobin Concent 32.8 Red Cell Distribution Width 13.6 Platelet Count 557 #H Mean Platelet Volume 9.6 Neutrophils % 60.6 Lymphocytes % 22.9 Monocytes % 11.2 H Eosinophils % 3.2 Basophils % 1.6 Nucleated Red Blood Cells % 0.0 Neutrophils # 5.6 Lymphocytes # 2.1 Monocytes # 1.0 H Eosinophils # 0.3 Basophils # 0.2 H Nucleated Red Blood Cells # 0.0 Medications Medications Current Medications Acetaminophen (Tylenol Tab) 650 mg Q6H PRN PO PAIN LEVEL 1-3 OR FEVER; Start at 19:00 Acetaminophen/ Hydrocodone Bitart ([place] (5/325)) 1 tab Q6H PRN PO MODERATE PAIN LEVEL 4-6 Last administered on 12/27/16 14:57; Admin Dose 1 TAB; Start at 19:00 Acetaminophen/ Hydrocodone Bitart ([place] (5/325)) 2 tab Q6H PRN PO SEVERE PAIN LEVEL 7-10 Last administered on 12/20/16 09:01; Admin Dose 2 TAB; Start at 19:00 Enoxaparin Sodium (Lovenox) 40 mg DAILY SC Last administered on 12/22/16 09:21 ; Admin Dose 40 MG; Start 12/19/16 at 09:00; Status Future Hold Amlodipine Besylate (Norvasc) 10 mg DAILY PO Last administered on 12/28/16 08: 22; Admin Dose 10 MG; Start 12/19/16 at 09:00 Atorvastatin Calcium (Lipitor) 40 mg QHS PO Last administered on 12/27/16 21: 00; Admin Dose 40 MG; Start 12/18/16 at 21:00 Ferrous Sulfate (Ferrous Sulfate (Ec)) 325 mg BID PO Last administered on 08:22; Admin Dose 325 MG; Start 12/18/16 at 21:00 Metoprolol Tartrate (Lopressor) 50 mg BID PO Last administered on 12/28/16 08: 23; Admin Dose 50 MG; Start 12/18/16 at 21:00 Tramadol HCl (Ultram) 50 mg Q6H PRN PO PAIN Last administered on 12/25/16 23: 03; Admin Dose 50 MG; Start 12/18/16 at 19:00 Benazepril HCl (Lotensin) 40 mg DAILY PO Last administered on 12/28/16 08:22; Admin Dose 40 MG; Start 12/19/16 at 09:00 Nicotine (Nicoderm 21 Mg/ 24hr) 1 patch DAILY TRANSDERM Last administered on 08:23; Admin Dose 1 PATCH; Start 12/20/16 at 09:00 Nicotine Polacrilex (Nicorette) 2 mg Q2H PRN BUCCAL agitation; Start 12/20/16 at 09:30 Acetaminophen/ Hydrocodone Bitart ([place] (10/325)) 1 tab Q4H PRN GTB pain Last administered on 12/27/16 02:43; Admin Dose 1 TAB; Start 12/20/16 at 10:00 Morphine Sulfate 3 mg 3 mg Q3H PRN IV SEVERE PAIN LEVEL 7-10 Last administered on 12/28/16 08:27; Admin Dose 3 MG; Start 12/20/16 at 11:00 Ceftriaxone Sodium (Rocephin) 50 ml @ 100 mls/hr Q24H IVPB Last administered on 12/27/16 14:57; Admin Dose 100 MLS/HR; Start 12/21/16 at 15:00 Zolpidem Tartrate (Ambien) 10 mg HS PRN PO INSOMNIA Last administered on 23:54; Admin Dose 10 MG; Start 12/24/16 at 01:00 ANDRES TRAN Dec 28, 2016 10:04
[2016-12-28 13:11] VITALS: BP 125/58; RESP 20
[2016-12-28] MEDS: CEFTRIAXONE 1 GM/50 ML (PMX) 50 ML IVPB SCH (15:10)
--- NOTE | 2016-12-28 15:45 | CONS ---
Date/Time of Note Date/Time of Note DATE: 12/28/16 TIME: 15:41 Assessment/Plan Assessment/Plan Chief Complaint/Hosp Course ID PROGRESS NOTE TOTAL ABX DAY # CURRENT ABX=> Ceftriaxone 24H INTERVAL SUMMARY * Doing well, not much drainage today -- He likes to talk at length about his entire history -- A/A/O -> VSS, NAD, no fevers, pain is controlled * POD #2 -> s/p 1. Irrigation debridement, right posterior shoulder wound. 2. Application of negative pressure wound VAC therapy less than50 square cm. GENERAL: VSS, NAD HEENT: Unremarkable NECK: Trach midline, full ROM CHEST: Rise symmetrical without dyspnea on observation ABDOMEN: Soft, EXTREMITIES: Warm,(+) moves extremities SKIN: No diaphoresis, no rash ID ASSESSMENT: 61 yo M admit with: 1. Status post oxacillin sensitive staph aureus bacteremia 12/18/16 secondary to #2 => RESOLVED 2. Right posterior shoulder prosthetic joint/cellulitis * s/p Arthrocentesis 12/21/16 wound cx(+) * WOUND CULTURE Final Organism 1 STAPHYLOCOCCUS AUREUS QUANTITY RARE S AUREUS M.I.C. RX --------- --- CEFAZOLIN S CIPROFLOXACIN <=0.5 S CLINDAMYCIN <=0.25 S DOXYCYCLINE S ERYTHROMYCIN 0.5 S LEVOFLOXACIN 0.25 S OXACILLIN 0.5 S PENICILLIN-G >=0.5 R RIFAMPIN <=0.5 S VANCOMYCIN 1 S TRIMETHOPRIM/SULFAMETHOXAZOLE <=10 S 3. POD #2 -> s/p 1. Irrigation debridement, right posterior shoulder wound. 2. Application of negative pressure wound VAC therapy less than50 square cm. INVASIVES: PIV ABX ALLERGY: PCN/SULFA TOTAL ABX DAY # CURRENT ABX=> Ceftriaxone ID PLAN 1. Continue current ABX, he has Sulfa allergy; hence not able to taper ABX to PO Bactrim. 2. Continue IV ABX over the weekend, ID team to discuss with primary and ortho surgeon on length of ABX course * Ceftriaxone is good choice as it is administered once daily with high blood levels and joint penetration, does not require a PICC line as it is not a vesicant. * Quinolones are alternative option. . . Problems: Consultation Date/Type/Reason Admit Date/Time Dec 18, 2016 at 17:39 Type of Consultation: id Exam/Review of Systems Vital Signs Vitals Vital Signs Date Time Temp Pulse Resp B/P Pulse Ox O2 Delivery O2 Flow Rate FiO2 12/28/16 13:11 97.5 82 20 125/58 96 12/26/16 17:29 Room Air 12/26/16 17:15 2.0 Intake and Output 12/27/16 12/27/16 12/28/16 14:59 22:59 06:59 Intake Total 2450 ml 1110 ml Balance 2450 ml 1110 ml Results Result Diagram: 12/28/16 0501 12/28/16 0501 Results 24 hrs Laboratory Tests Test 12/28/16 05:01 White Blood Count 9.3 Red Blood Count 3.98 L Hemoglobin 12.0 L Hematocrit 36.6 L Mean Corpuscular Volume 92.0 Mean Corpuscular Hemoglobin 30.2 Mean Corpuscular Hemoglobin Concent 32.8 Red Cell Distribution Width 13.6 Platelet Count 557 #H Mean Platelet Volume 9.6 Neutrophils % 60.6 Lymphocytes % 22.9 Monocytes % 11.2 H Eosinophils % 3.2 Basophils % 1.6 Nucleated Red Blood Cells % 0.0 Neutrophils # 5.6 Lymphocytes # 2.1 Monocytes # 1.0 H Eosinophils # 0.3 Basophils # 0.2 H Nucleated Red Blood Cells # 0.0 Sodium Level 138 Potassium Level 4.7 Chloride Level 98 Carbon Dioxide Level 31 Anion Gap 14 Blood Urea Nitrogen 21 H Creatinine 1.08 Glucose Level 96 Calcium Level 8.9 Medications Medications Current Medications Acetaminophen (Tylenol Tab) 650 mg Q6H PRN PO PAIN LEVEL 1-3 OR FEVER; Start at 19:00 Acetaminophen/ Hydrocodone Bitart ([place] (5/325)) 1 tab Q6H PRN PO MODERATE PAIN LEVEL 4-6 Last administered on 12/27/16 14:57; Admin Dose 1 TAB; Start at 19:00 Acetaminophen/ Hydrocodone Bitart ([place] (5/325)) 2 tab Q6H PRN PO SEVERE PAIN LEVEL 7-10 Last administered on 12/20/16 09:01; Admin Dose 2 TAB; Start at 19:00 Enoxaparin Sodium (Lovenox) 40 mg DAILY SC Last administered on 12/22/16 09:21 ; Admin Dose 40 MG; Start 12/19/16 at 09:00; Status Future Hold Amlodipine Besylate (Norvasc) 10 mg DAILY PO Last administered on 12/28/16 08: 22; Admin Dose 10 MG; Start 12/19/16 at 09:00 Atorvastatin Calcium (Lipitor) 40 mg QHS PO Last administered on 12/27/16 21: 00; Admin Dose 40 MG; Start 12/18/16 at 21:00 Ferrous Sulfate (Ferrous Sulfate (Ec)) 325 mg BID PO Last administered on 08:22; Admin Dose 325 MG; Start 12/18/16 at 21:00 Metoprolol Tartrate (Lopressor) 50 mg BID PO Last administered on 12/28/16 08: 23; Admin Dose 50 MG; Start 12/18/16 at 21:00 Tramadol HCl (Ultram) 50 mg Q6H PRN PO PAIN Last administered on 12/25/16 23: 03; Admin Dose 50 MG; Start 12/18/16 at 19:00 Benazepril HCl (Lotensin) 40 mg DAILY PO Last administered on 12/28/16 08:22; Admin Dose 40 MG; Start 12/19/16 at 09:00 Nicotine (Nicoderm 21 Mg/ 24hr) 1 patch DAILY TRANSDERM Last administered on 08:23; Admin Dose 1 PATCH; Start 12/20/16 at 09:00 Nicotine Polacrilex (Nicorette) 2 mg Q2H PRN BUCCAL agitation; Start 12/20/16 at 09:30 Acetaminophen/ Hydrocodone Bitart ([place] ()) 1 tab Q4H PRN GTB pain Last administered on 12/27/16 02:43; Admin Dose 1 TAB; Start 12/20/16 at 10:00 Morphine Sulfate 3 mg 3 mg Q3H PRN IV SEVERE PAIN LEVEL 7-10 Last administered on 12/28/16 15:10; Admin Dose 3 MG; Start 12/20/16 at 11:00 Ceftriaxone Sodium (Rocephin) 50 ml @ 100 mls/hr Q24H IVPB Last administered on 12/28/16 15:10; Admin Dose 100 MLS/HR; Start 12/21/16 at 15:00 Zolpidem Tartrate (Ambien) 10 mg HS PRN PO INSOMNIA Last administered on t 23:54; Admin Dose 10 MG; Start 12/24/16 at 01:00 LEONCIO FAULKNER NP Dec 28, 2016 15:45
[2016-12-28 19:46] VITALS: BP 120/58; RESP 20
[2016-12-28] MEDS: ATORVASTATIN 40 MG TAB PO SCH (21:23)
[2016-12-29] VITALS (15 sets, daily range): BP systolic 105–140; BP diastolic 64–83; PULSE 62–79; RESP 15–20
[2016-12-29] MEDS: morphine 4 MG/ML VIAL IV PRN ×7 (00:45→21:36)
[2016-12-29 06:24] LABS: BASOPHIL # 0.2 10^3/ul (0.0-0.1); BASOPHILS % 1.7 % (0.0-2.0); EOSINOPHILS # 0.3 10^3/ul (0.0-0.5); EOSINOPHILS % 2.9 % (0.0-7.0); HEMATOCRIT 35.3 % (42.0-52.0); HEMOGLOBIN 11.4 g/dl (14.0-18.0); LYMPHOCYTES # 1.6 10^3/ul (0.8-2.9); LYMPHOCYTES % 17.9 % (15.0-51.0); MEAN CORPUSCULAR HGB CONC 32.3 g/dl (32.0-37.0); MEAN CORPUSCULAR VOLUME 92.9 fl (82.0-101.0); MEAN PLATELET VOLUME 9.4 fl (7.4-10.4); MONOCYTE # 0.9 10^3/ul (0.3-0.9); MONOCYTES % 9.8 % (0.0-11.0); NEUTROPHIL # 6.1 10^3/ul (1.6-7.5); NEUTROPHILS % 67.1 % (39.0-77.0); PLATELET COUNT 526 10^3/UL (140-415); RED CELL DISTRIBUTION WIDTH 13.7 % (11.5-14.5); WHITE BLOOD COUNT 9.1 10^3/ul (4.8-10.8)
[2016-12-29 07:15] LABS: CALCIUM 9.1 mg/dl (8.4-10.2); CREATININE 1.01 mg/dl (0.61-1.24); POTASSIUM 4.8 mmol/L (3.5-5.1)
[2016-12-29] MEDS: AMLODIPINE 10 MG TAB PO SCH (08:34)
[2016-12-29] MEDS: METOPROLOL 50 MG TAB PO SCH ×2 (08:34→21:32)
[2016-12-29] MEDS: FERROUS SULFATE (EC) 325 MG TAB PO SCH ×2 (08:34→21:31)
[2016-12-29] MEDS: NICOTINE (21 MG/24 HR) PATCH TRANSDERM SCH (08:35)
[2016-12-29] MEDS: BENAZEPRIL 40 MG TAB PO SCH (08:35)
--- NOTE | 2016-12-29 11:51 | PN ---
Date/Time of Note Date/Time of Note DATE: 12/29/16 TIME: 11:49 Assessment/Plan VTE Prophylaxis VTE Prophylaxis Intervention: SCD's Lines/Catheters IV [facility] Type [facility] Peripheral IV Urinary Cath still in place: No Assessment/Plan Assessment/Plan 61 yo M here with wound infection, concern for prosthetic joint infection v wound infection Found to have S Aureus bacteremia. Patient also had I&D x 3 this admission, now with wound vac placement (and arthrocentesis 9.) PLAN: - Ortho following back to OR today -On Ceftriaxone as pt with PCN allergy (unclear why he cannot be on Ancef). - Of note, TTE was without clear vegetation though mitral valve thickening. ID on consult - cont home meds for patient's hypertension and high cholesterol. - Counseled on smoking cessation. Continue nicotine patch Subjective 24 Hr Interval Summary Free Text/Dictation Pt standing in his room, slated for washout later today. States he does not have a place to go after discharge Exam/Review of Systems Vital Signs Vitals Vital Signs Date Time Temp Pulse Resp B/P Pulse Ox O2 Delivery O2 Flow Rate FiO2 12/29/16 07:00 98.7 84 18 134/73 94 12/26/16 17:29 Room Air 12/26/16 17:15 2.0 Intake and Output 12/28/16 12/28/16 12/29/16 15:00 23:00 07:00 Intake Total 1850 ml 840 ml Output Total 0 ml Balance 1850 ml 840 ml Exam nad no mrg lungs clear abd soft no rashes +wound vac noted to shoulder Results Result Diagram: 12/29/16 0507 12/29/16 0507 Results 24 hrs Laboratory Tests Test 12/29/16 05:07 White Blood Count 9.1 Red Blood Count 3.80 L Hemoglobin 11.4 L Hematocrit 35.3 L Mean Corpuscular Volume 92.9 Mean Corpuscular Hemoglobin 30.0 Mean Corpuscular Hemoglobin Concent 32.3 Red Cell Distribution Width 13.7 Platelet Count 526 H Mean Platelet Volume 9.4 Neutrophils % 67.1 Lymphocytes % 17.9 Monocytes % 9.8 Eosinophils % 2.9 Basophils % 1.7 Nucleated Red Blood Cells % 0.0 Neutrophils # 6.1 Lymphocytes # 1.6 Monocytes # 0.9 Eosinophils # 0.3 Basophils # 0.2 H Nucleated Red Blood Cells # 0.0 Sodium Level 135 Potassium Level 4.8 Chloride Level 97 Carbon Dioxide Level 32 H Anion Gap 11 Blood Urea Nitrogen 23 H Creatinine 1.01 Glucose Level 100 Calcium Level 9.1 Medications Medications Current Medications Acetaminophen (Tylenol Tab) 650 mg Q6H PRN PO PAIN LEVEL 1-3 OR FEVER; Start at 19:00 Acetaminophen/ Hydrocodone Bitart ([place] (5/325)) 1 tab Q6H PRN PO MODERATE PAIN LEVEL 4-6 Last administered on 12/27/16 14:57; Admin Dose 1 TAB; Start at 19:00 Acetaminophen/ Hydrocodone Bitart ([place] (5/325)) 2 tab Q6H PRN PO SEVERE PAIN LEVEL 7-10 Last administered on 12/20/16 09:01; Admin Dose 2 TAB; Start at 19:00 Enoxaparin Sodium (Lovenox) 40 mg DAILY SC Last administered on 12/22/16 09:21 ; Admin Dose 40 MG; Start 12/19/16 at 09:00; Status Future Hold Amlodipine Besylate (Norvasc) 10 mg DAILY PO Last administered on 12/29/16 08: 34; Admin Dose 10 MG; Start 12/19/16 at 09:00 Atorvastatin Calcium (Lipitor) 40 mg QHS PO Last administered on 12/28/16 21: 23; Admin Dose 40 MG; Start 12/18/16 at 21:00 Ferrous Sulfate (Ferrous Sulfate (Ec)) 325 mg BID PO Last administered on 08:34; Admin Dose 325 MG; Start 12/18/16 at 21:00 Metoprolol Tartrate (Lopressor) 50 mg BID PO Last administered on 12/29/16 08: 34; Admin Dose 50 MG; Start 12/18/16 at 21:00 Tramadol HCl (Ultram) 50 mg Q6H PRN PO PAIN Last administered on 12/25/16 23: 03; Admin Dose 50 MG; Start 12/18/16 at 19:00 Benazepril HCl (Lotensin) 40 mg DAILY PO Last administered on 12/29/16 08:35; Admin Dose 40 MG; Start 12/19/16 at 09:00 Nicotine (Nicoderm 21 Mg/ 24hr) 1 patch DAILY TRANSDERM Last administered on 08:35; Admin Dose 1 PATCH; Start 12/20/16 at 09:00 Nicotine Polacrilex (Nicorette) 2 mg Q2H PRN BUCCAL agitation; Start 12/20/16 at 09:30 Acetaminophen/ Hydrocodone Bitart ([place] (10/325)) 1 tab Q4H PRN GTB pain Last administered on 12/27/16 02:43; Admin Dose 1 TAB; Start 12/20/16 at 10:00 Morphine Sulfate 3 mg 3 mg Q3H PRN IV SEVERE PAIN LEVEL 7-10 Last administered on 12/29/16 10:09; Admin Dose 3 MG; Start 12/20/16 at 11:00 Ceftriaxone Sodium (Rocephin) 50 ml @ 100 mls/hr Q24H IVPB Last administered on 12/28/16 15:10; Admin Dose 100 MLS/HR; Start 12/21/16 at 15:00 Zolpidem Tartrate (Ambien) 10 mg HS PRN PO INSOMNIA Last administered on 23:54; Admin Dose 10 MG; Start 12/24/16 at 01:00 DOROTHY BRYSON MD Dec 29, 2016 11:51 on 12/28/16 15:10; Admin Dose 100 MLS/HR; Start 12/21/16 at 15:00 Zolpidem Tartrate (Ambien) 10 mg HS PRN PO INSOMNIA Last administered on 23:54; Admin Dose 10 MG; Start 12/24/16 at 01:00 DOROTHY BRYSON MD Dec 29, 2016 11:51
--- NOTE | 2016-12-29 14:37 | CONS ---
Date/Time of Note Date/Time of Note DATE: 12/29/16 TIME: 14:30 Consultation Date/Type/Reason Admit Date/Time Dec 18, 2016 at 17:39 Initial Consult Date SUBJECTIVE DATA: 61 y/o male being treated for Rt shoulder infected, non- healing wound. Scheduled for surgical debridement today. Patient is alert and oriented, feels ok. No fevers. VS: 140/68 HR: 69 R:18 SO2:96% TEMP: 98.6 LABORATORY: REVIEWED. H&H: 11.4/35.3 BUN=23 CREAT=1.01 MICROBIOLOGY: Blood culture on admission grew oxacillin sensitive Staph aureus. Wound culture grew oxacillin sensitive Staph aureus. Repeat blood cultures negative. FUNGAL CULTURE Preliminary MYCOLOGY CULTURES ARE HELD 4 TO 6 WEEKS. ANY SIGNIFICANT GROWTH WILL BE REPORTED WHEN DETECTED. INTERIM REPORTS ARE NOT ISSUED. ACID FAST BACILLI- NONE SEEN ANTIMICROBIALS: Rocephin IV ALLERGIES: THE PATIENT IS ALLERGIC TO: PENICILLIN. SULFA. PHYSICAL EXAMINATION: GENERAL: This is well nourished, well developed, middle-aged white man, who is alert, in no distress. HEENT: Head atraumatic, normocephalic. Sclerae anicteric. Buccal mucosa pink. NECK: Supple. CHEST: Rise symmetrical. Breath sounds clear. HEART: S1, S2. ABDOMEN: Soft, bowel sounds present. EXTREMITIES: Without cyanosis. SKIN: With right upper back wound to wound VAC. No erythema around the edges. ASSESSMENT: 1. Oxacillin-sensitive Staphylococcus aureus bacteremia secondary to infected wound, status post incision and drainage with wound vacuum-assisted closure application. 2. Allergy to sulfa and penicillin. PLAN: Continue IV Rocephin and pain management. Continue local wound care per surgeon. Anticipate change to PO Cipro when ready for D/C to complete 2wks of Antbx treatment. Type of Consultation: id Exam/Review of Systems Vital Signs Vitals Vital Signs Date Time Temp Pulse Resp B/P Pulse Ox O2 Delivery O2 Flow Rate FiO2 12/29/16 13:55 98.6 69 18 140/68 96 12/26/16 17:29 Room Air 12/26/16 17:15 2.0 Intake and Output 12/28/16 12/28/16 12/29/16 15:00 23:00 07:00 Intake Total 1850 ml 840 ml Output Total 0 ml Balance 1850 ml 840 ml Results Result Diagram: 12/29/16 0507 12/29/16 0507 Results 24 hrs Laboratory Tests Test 12/29/16 05:07 White Blood Count 9.1 Red Blood Count 3.80 L Hemoglobin 11.4 L Hematocrit 35.3 L Mean Corpuscular Volume 92.9 Mean Corpuscular Hemoglobin 30.0 Mean Corpuscular Hemoglobin Concent 32.3 Red Cell Distribution Width 13.7 Platelet Count 526 H Mean Platelet Volume 9.4 Neutrophils % 67.1 Lymphocytes % 17.9 Monocytes % 9.8 Eosinophils % 2.9 Basophils % 1.7 Nucleated Red Blood Cells % 0.0 Neutrophils # 6.1 Lymphocytes # 1.6 Monocytes # 0.9 Eosinophils # 0.3 Basophils # 0.2 H Nucleated Red Blood Cells # 0.0 Sodium Level 135 Potassium Level 4.8 Chloride Level 97 Carbon Dioxide Level 32 H Anion Gap 11 Blood Urea Nitrogen 23 H Creatinine 1.01 Glucose Level 100 Calcium Level 9.1 Medications Medications Current Medications Acetaminophen (Tylenol Tab) 650 mg Q6H PRN PO PAIN LEVEL 1-3 OR FEVER; Start at 19:00 Acetaminophen/ Hydrocodone Bitart ([place] (5/325)) 1 tab Q6H PRN PO MODERATE PAIN LEVEL 4-6 Last administered on 12/27/16 14:57; Admin Dose 1 TAB; Start at 19:00 Acetaminophen/ Hydrocodone Bitart ([place] (5/325)) 2 tab Q6H PRN PO SEVERE PAIN LEVEL 7-10 Last administered on 12/20/16 09:01; Admin Dose 2 TAB; Start at 19:00 Enoxaparin Sodium (Lovenox) 40 mg DAILY SC Last administered on 12/22/16 09:21 ; Admin Dose 40 MG; Start 12/19/16 at 09:00; Status Future Hold Amlodipine Besylate (Norvasc) 10 mg DAILY PO Last administered on 12/29/16 08: 34; Admin Dose 10 MG; Start 12/19/16 at 09:00 Atorvastatin Calcium (Lipitor) 40 mg QHS PO Last administered on 12/28/16 21: 23; Admin Dose 40 MG; Start 12/18/16 at 21:00 Ferrous Sulfate (Ferrous Sulfate (Ec)) 325 mg BID PO Last administered on 08:34; Admin Dose 325 MG; Start 12/18/16 at 21:00 Metoprolol Tartrate (Lopressor) 50 mg BID PO Last administered on 12/29/16 08: 34; Admin Dose 50 MG; Start 12/18/16 at 21:00 Tramadol HCl (Ultram) 50 mg Q6H PRN PO PAIN Last administered on 12/25/16 23: 03; Admin Dose 50 MG; Start 12/18/16 at 19:00 Benazepril HCl (Lotensin) 40 mg DAILY PO Last administered on 12/29/16 08:35; Admin Dose 40 MG; Start 12/19/16 at 09:00 Nicotine (Nicoderm 21 Mg/ 24hr) 1 patch DAILY TRANSDERM Last administered on 08:35; Admin Dose 1 PATCH; Start 12/20/16 at 09:00 Nicotine Polacrilex (Nicorette) 2 mg Q2H PRN BUCCAL agitation; Start 12/20/16 at 09:30 Acetaminophen/ Hydrocodone Bitart ([place] (10/325)) 1 tab Q4H PRN GTB pain Last administered on 12/27/16 02:43; Admin Dose 1 TAB; Start 12/20/16 at 10:00 Morphine Sulfate 3 mg 3 mg Q3H PRN IV SEVERE PAIN LEVEL 7-10 Last administered on 12/29/16 13:04; Admin Dose 3 MG; Start 12/20/16 at 11:00 Ceftriaxone Sodium (Rocephin) 50 ml @ 100 mls/hr Q24H IVPB Last administered on 12/28/16 15:10; Admin Dose 100 MLS/HR; Start 12/21/16 at 15:00 Zolpidem Tartrate (Ambien) 10 mg HS PRN PO INSOMNIA Last administered on 23:54; Admin Dose 10 MG; Start 12/24/16 at 01:00 HOLGER GILES Dec 29, 2016 14:37
[2016-12-29] MEDS: CEFTRIAXONE 1 GM/50 ML (PMX) 50 ML IVPB SCH (14:38)
--- NOTE | 2016-12-29 16:24 | HPN ---
Date/Time of Note Date/Time of Note DATE: 12/29/16 TIME: 16:24 Interval H&P Admission Note Pt. seen H&P reviewed: No system changes SARANYA JONES MD Dec 29, 2016 16:24
[2016-12-29] MEDS ORDERED: FENTAnyl 50 MCG/ML VIAL ONE ×2 (16:29→16:48)
[2016-12-29] MEDS ORDERED: MIDAZOLAM 1 MG/ML 2 ML INJ ONE (16:29)
[2016-12-29] MEDS ORDERED: ONDANSETRON 4 MG INJ IV PRN (16:30)
[2016-12-29] MEDS ORDERED: HYDROmorphONE (0.2 MG/ML) 10ML SYG IV PRN ×2 (16:30)
[2016-12-29] MEDS ORDERED: OXYCODONE/ACETAMINOPHEN (5/325) TAB PO PRN ×2 (16:30)
[2016-12-29] MEDS ORDERED: LABETALOL HCL 20MG INJ IV PRN (16:30)
[2016-12-29] MEDS ORDERED: EPHEDrine SULFATE 50 MG/5 ML SYG IV PRN (16:30)
[2016-12-29] MEDS ORDERED: hydrALAzine 20 MG INJ IV PRN (16:30)
[2016-12-29] MEDS ORDERED: KETOROLAC 30 MG INJ IV PRN (16:30)
[2016-12-29] MEDS ORDERED: DIPHENHYDRAMINE 50 MG INJ IV PRN (16:30)
[2016-12-29] MEDS ORDERED: METOCLOPRAMIDE 10 MG INJ IV PRN (16:30)
[2016-12-29] MEDS ORDERED: FENTAnyl 50 MCG/ML VIAL IV PRN ×3 (16:30)
[2016-12-29] MEDS ORDERED: MEPERIDINE 25 MG INJ IV PRN (16:30)
--- NOTE | 2016-12-29 17:16 | SIPON ---
Date/Time of Note Date/Time of Note DATE: 12/29/16 TIME: 17:15 Operative Report Preoperative Diagnosis Right posterior flank infection Postoperative Diagnosis Right posterior flank infection Operation/Procedure Performed Right posterior flank I&D, Wound Vac change Surgeon see signature line assistant spa director none Anesthesia: MAC Estimated blood loss: minimal Transfusion Required none Specimen none Grafts/Implants none Complications none SARANYA JONES MD Dec 29, 2016 17:16
[2016-12-29] MEDS: HYDROmorphONE (0.2 MG/ML) 10ML SYG IV PRN ×3 (17:23→17:36)
[2016-12-29] MEDS ORDERED: PENDING SANTYL ORDER FOR WOUND CARE XX PRN (17:30)
[2016-12-29] MEDS: ATORVASTATIN 40 MG TAB PO SCH (21:31)
[2016-12-30] MEDS: morphine 4 MG/ML VIAL IV PRN ×8 (00:26→22:04)
[2016-12-30 01:52] VITALS: BP 104/56; RESP 20
--- NOTE | 2016-12-30 01:54 | OPR ---
DATE OF OPERATION: 12/24/2016 SURGEON: Roland Casillas MD. ANESTHESIA: General. PREOPERATIVE DIAGNOSIS: Right posterior shoulder wound infection. POSTOPERATIVE DIAGNOSIS: Right posterior shoulder wound infection. OPERATION PERFORMED: 1. Irrigation and debridement of the right posterior shoulder VAC. 2. Application of negative wound VAC therapy less than 50 square cm. 3. Arthrocentesis anterior right glenohumeral joint. SUMMARY: The patient has been in the hospital for several days who sustained an infection after a posterior incision and has been receiving irrigation, debridement, and wound VAC changes for infection as well as IV antibiotics. The risks of surgery, including pain, bleeding, infection, scar, damage to nearby structures, failure for the surgery to work, blood clots of upper extremities and lower extremities, pulmonary embolism, risk of anesthesia, were explained to the patient, and he elected to proceed. PROCEDURE: The patient was marked and identified in preoperative holding, brought to the operating room, supine on the operating table, and placed under general anesthesia. He was then placed in a lateral decubitus position with bony prominences well padded, and care was taken to position his shoulders safely, as he has bilateral total shoulder arthroplasties. His right posterior flank was prepped and draped in the usual sterile fashion. A time-out was performed. The procedure was initiated with removal of the previous wound VAC, and then a sterile preparation was performed of the area. Irrigation debridement of 9 L of normal saline was performed with a curettage and . Debridement took place to subcutaneous tissue and muscle, but not bone. A total of 9 L of irrigation was run through the wound, and a silver sponge wound VAC therapy was applied, approximately 5 cm x 4 cm x 4 cm, applied to the wound and taped. The wound VAC was applied on and found to have excellent suction. Once the patient was removed from the drapes, anterior aspect of the shoulder was prepped using a sterile preparation, and an 18-gauge spinal needle was introduced in the glenohumeral joint with occlusion of needle upon the humeral component to confirm adequate position within the glenohumeral joint. Aspiration was performed. This was a 0 aspiration. There was no fluid within the glenohumeral joint, and thus a dry tap. The patient was extubated in operating room in good condition. Dictated By: Roland Casillas MD /fnt/grs /Document#: [id number]
--- NOTE | 2016-12-30 03:16 | OPR ---
DATE OF OPERATION: 12/29/2016 SURGEON: Roland Casillas MD. ANESTHESIA: MAC. PREOPERATIVE DIAGNOSIS: Right posterior shoulder wound infection. POSTOPERATIVE DIAGNOSIS: Right posterior shoulder wound infection. PROCEDURE: 1. Irrigation of right posterior shoulder wound. 2. Application of negative wound VAC direct therapy less than 50 square cm. We have been performing irrigation, debridement with VAC changes for several visits for a very virulent infection of posterior flank. He is here for repeat irrigation, debridement and wound VAC change. OPERATIVE PROCEDURE: The patient was marked and identified in the preop holding, brought to the operating room table and placed under conscious sedation and placed in a lateral decubitus position with the de la rosa bag. His bony prominences were well padded. Care was taken to position both the shoulders appropriately, as he had bilateral total shoulder arthroplasties. The patient is already receiving antibiotics on the floor, and his right posterior flank was prepped and draped in the usual sterile fashion. The previous wound VAC sponge was removed, sterilely prepped, and then 9 L of normal saline was irrigated through the wound. A time-out was performed and instrumentation was used for debridement, although the appearance of the wound was very clean, Excellent granulation bed. No signs of active purulence. No signs of active infection. After 9 L of fluid were irrigated, a wound VAC sponge was applied. This was approximately 3 cm x 1 cm x 1 cm made in a crescent-shaped. This was applied inside the wound, and then a single rectangular strip was applied on top of this to assist in the incision and to assist in the application of the tape. The tapes and suction were applied. Wound VAC was found to have excellent suction. The patient was awoken in the operating room in good condition. PLAN: To conclude operating room irrigation and debridement. This will be his final planned operating irrigation and debridement. The wound VAC sponge has been decreased to a sufficient size to help facilitate wound VAC changes on the floor and subsequently in the home setting with home health. The patient will continue to receive IV antibiotics. We will monitor his wound aggressively. Should there be any changes, this will obviously change our plan. Dictated By: Roland Casillas MD /thomas/elias /Document#: [id number]
[2016-12-30 07:23] VITALS: BP 125/63; RESP 16
[2016-12-30] MEDS: FERROUS SULFATE (EC) 325 MG TAB PO SCH ×2 (09:52→20:55)
[2016-12-30] MEDS: METOPROLOL 50 MG TAB PO SCH ×2 (09:52→20:55)
[2016-12-30] MEDS: BENAZEPRIL 40 MG TAB PO SCH (09:53)
[2016-12-30] MEDS: NICOTINE (21 MG/24 HR) PATCH TRANSDERM SCH (09:53)
[2016-12-30] MEDS: AMLODIPINE 10 MG TAB PO SCH (09:53)
[2016-12-30 11:34] LABS: BASOPHIL # 0.1 10^3/ul (0.0-0.1); BASOPHILS % 1.5 % (0.0-2.0); EOSINOPHILS # 0.3 10^3/ul (0.0-0.5); EOSINOPHILS % 2.8 % (0.0-7.0); HEMATOCRIT 34.1 % (42.0-52.0); HEMOGLOBIN 10.8 g/dl (14.0-18.0); LYMPHOCYTES # 1.3 10^3/ul (0.8-2.9); LYMPHOCYTES % 14.5 % (15.0-51.0); MEAN CORPUSCULAR HEMOGLOBIN 29.3 pg (29.0-33.0); MEAN CORPUSCULAR HGB CONC 31.7 g/dl (32.0-37.0); MEAN CORPUSCULAR VOLUME 92.4 fl (82.0-101.0); MEAN PLATELET VOLUME 9.6 fl (7.4-10.4); MONOCYTE # 0.8 10^3/ul (0.3-0.9); MONOCYTES % 9.1 % (0.0-11.0); NEUTROPHIL # 6.5 10^3/ul (1.6-7.5); NEUTROPHILS % 71.8 % (39.0-77.0); PLATELET COUNT 510 10^3/UL (140-415); RED BLOOD COUNT 3.69 10^6/ul (4.70-6.10); RED CELL DISTRIBUTION WIDTH 13.7 % (11.5-14.5); WHITE BLOOD COUNT 9.1 10^3/ul (4.8-10.8)
--- NOTE | 2016-12-30 11:39 | PN ---
Date/Time of Note Date/Time of Note DATE: 12/30/16 TIME: 11:34 Assessment/Plan VTE Prophylaxis VTE Prophylaxis Intervention: ambulation Lines/Catheters IV Catheter Type (from Nrsg): Saline Lock Urinary Cath still in place: No Assessment/Plan Assessment/Plan At this point, the patient may transition to floor/home wound vac changes until there is closure of the wound. He will require 3x weekly wound vac changes and wound care to do so. Recommend at least 4 more weeks of IV antibiotics given the fact his wound will be open about that long until it heals by secondary intention. He may be able to transition to packing changes without the wound vac in between that time. Subjective 24 Hr Interval Summary Free Text/Dictation No acute events after surgery last night Exam/Review of Systems Vital Signs Vitals Vital Signs Date Time Temp Pulse Resp B/P Pulse Ox O2 Delivery O2 Flow Rate FiO2 12/30/16 07:23 97.9 65 16 125/63 97 12/29/16 17:54 Room Air 12/29/16 17:25 2.0 Intake and Output 12/29/16 12/29/16 12/30/16 14:59 22:59 06:59 Intake Total 1150 ml 800 ml Output Total 0 ml 625 ml 25 ml Balance 0 ml 525 ml 775 ml Exam Wound vac c/d/i. No anterior pain. Appropriate tenderness around incision site. NVI. Trace clear output in wound vac Results Result Diagram: 12/29/16 0507 12/29/16 0507 Results 24 hrs Laboratory Tests Test 12/30/16 10:47 White Blood Count Pending Red Blood Count Pending Hemoglobin Pending Hematocrit Pending Mean Corpuscular Volume Pending Mean Corpuscular Hemoglobin Pending Mean Corpuscular Hemoglobin Concent Pending Red Cell Distribution Width Pending Platelet Count Pending Mean Platelet Volume Pending Medications Medications Current Medications Acetaminophen (Tylenol Tab) 650 mg Q6H PRN PO PAIN LEVEL 1-3 OR FEVER; Start at 19:00 Acetaminophen/ Hydrocodone Bitart ([place] (5/325)) 1 tab Q6H PRN PO MODERATE PAIN LEVEL 4-6 Last administered on 12/27/16t 14:57; Admin Dose 1 TAB; Start at 19:00 Acetaminophen/ Hydrocodone Bitart ([place] (5/325)) 2 tab Q6H PRN PO SEVERE PAIN LEVEL 7-10 Last administered on 12/20/16 09:01; Admin Dose 2 TAB; Start at 19:00 Enoxaparin Sodium (Lovenox) 40 mg DAILY SC Last administered on 12/22/16 09:21 ; Admin Dose 40 MG; Start 12/19/16 at 09:00; Status Future Hold Amlodipine Besylate (Norvasc) 10 mg DAILY PO Last administered on 12/30/16 09: 53; Admin Dose 10 MG; Start 12/19/16 at 09:00 Atorvastatin Calcium (Lipitor) 40 mg QHS PO Last administered on 12/29/16 21: 31; Admin Dose 40 MG; Start 12/18/16 at 21:00 Ferrous Sulfate (Ferrous Sulfate (Ec)) 325 mg BID PO Last administered on 09:52; Admin Dose 325 MG; Start 12/18/16 at 21:00 Metoprolol Tartrate (Lopressor) 50 mg BID PO Last administered on 12/30/16 09: 52; Admin Dose 50 MG; Start 12/18/16 at 21:00 Tramadol HCl (Ultram) 50 mg Q6H PRN PO PAIN Last administered on 12/25/16 23: 03; Admin Dose 50 MG; Start 12/18/16 at 19:00 Benazepril HCl (Lotensin) 40 mg DAILY PO Last administered on 12/30/16 09:53; Admin Dose 40 MG; Start 12/19/16 at 09:00 Nicotine (Nicoderm 21 Mg/ 24hr) 1 patch DAILY TRANSDERM Last administered on 09:53; Admin Dose 1 PATCH; Start 12/20/16 at 09:00 Nicotine Polacrilex (Nicorette) 2 mg Q2H PRN BUCCAL agitation; Start 12/20/16 at 09:30 Acetaminophen/ Hydrocodone Bitart ([place] (10)) 1 tab Q4H PRN GTB pain Last administered on 12/27/16 02:43; Admin Dose 1 TAB; Start 12/20/16 at 10:00 Morphine Sulfate 3 mg 3 mg Q3H PRN IV SEVERE PAIN LEVEL 7-10 Last administered on 12/30/16 09:52; Admin Dose 3 MG; Start 12/20/16 at 11:00 Ceftriaxone Sodium (Rocephin) 50 ml @ 100 mls/hr Q24H IVPB Last administered on 12/29/16 14:38; Admin Dose 100 MLS/HR; Start 12/21/16 at 15:00 Zolpidem Tartrate (Ambien) 10 mg HS PRN PO INSOMNIA Last administered on 23:54; Admin Dose 10 MG; Start 12/24/16 at 01:00 Miscellaneous Information (Pending [facility] Order For Wound Care) This patient curran... PRN PRN XX WOUND CARE; Start 12/29/16 at 17:30 SARANYA JONES MD Dec 30, 2016 11:39
[2016-12-30 11:57] LABS: CALCIUM 8.6 mg/dl (8.4-10.2); CREATININE 1.15 mg/dl (0.61-1.24)
[2016-12-30 14:02] VITALS: BP 124/65; RESP 16
--- NOTE | 2016-12-30 14:08 | CONS ---
Date/Time of Note Date/Time of Note DATE: 12/30/16 TIME: 14:07 Assessment/Plan Assessment/Plan Chief Complaint/Hosp Course No acute events overnight per report, no fevers, patient looks comfortable Physical examination: well-nourished well-developed middle-aged man who is in no distress head atraumatic normocephalic sclerae anicteric neck is supple chest rise symmetrical breath sounds clear heart S1-S2 abdomen soft bowel sounds present extremities without cyanosis skin with right upper back wound to wound VAC Assessment: 1. Status post oxacillin sensitive staph aureus bacteremia secondary to #2 2. Right posterior shoulder infected wound, status post I&D with wound VAC application, status post arthrocentesis of right anterior shoulder 3. Hx B shoulder replacement Plan: Patient remains stable, continue abx, f/u ortho rec-s. Anticipate discharge on oral ciprofloxacin for 4 weeks Problems: Consultation Date/Type/Reason Admit Date/Time Dec 18, 2016 at 17:39 Type of Consultation: id Exam/Review of Systems Vital Signs Vitals Vital Signs Date Time Temp Pulse Resp B/P Pulse Ox O2 Delivery O2 Flow Rate FiO2 12/30/16 14:02 98.1 67 16 124/65 95 12/29/16 17:54 Room Air 12/29/16 17:25 2.0 Intake and Output 12/29/16 12/29/16 12/30/16 15:00 23:00 07:00 Intake Total 1150 ml 800 ml Output Total 0 ml 625 ml 25 ml Balance 0 ml 525 ml 775 ml Results Result Diagram: 12/30/16 1047 12/30/16 1047 Results 24 hrs Laboratory Tests Test 12/30/16 10:47 White Blood Count 9.1 Red Blood Count 3.69 L Hemoglobin 10.8 L Hematocrit 34.1 L Mean Corpuscular Volume 92.4 Mean Corpuscular Hemoglobin 29.3 Mean Corpuscular Hemoglobin Concent 31.7 L Red Cell Distribution Width 13.7 Platelet Count 510 H Mean Platelet Volume 9.6 Neutrophils % 71.8 Lymphocytes % 14.5 L Monocytes % 9.1 Eosinophils % 2.8 Basophils % 1.5 Nucleated Red Blood Cells % 0.0 Neutrophils # 6.5 Lymphocytes # 1.3 Monocytes # 0.8 Eosinophils # 0.3 Basophils # 0.1 Nucleated Red Blood Cells # 0.0 Sodium Level 132 L Potassium Level 5.0 Chloride Level 96 L Carbon Dioxide Level 31 Anion Gap 10 Blood Urea Nitrogen 24 H Creatinine 1.15 Glucose Level 117 Calcium Level 8.6 Medications Medications Current Medications Acetaminophen (Tylenol Tab) 650 mg Q6H PRN PO PAIN LEVEL 1-3 OR FEVER; Start at 19:00 Acetaminophen/ Hydrocodone Bitart ([place] (5/325)) 1 tab Q6H PRN PO MODERATE PAIN LEVEL 4-6 Last administered on 12/27/16 14:57; Admin Dose 1 TAB; Start at 19:00 Acetaminophen/ Hydrocodone Bitart ([place] (5/325)) 2 tab Q6H PRN PO SEVERE PAIN LEVEL 7-10 Last administered on 12/20/16 09:01; Admin Dose 2 TAB; Start at 19:00 Enoxaparin Sodium (Lovenox) 40 mg DAILY SC Last administered on 12/22/16 09:21 ; Admin Dose 40 MG; Start 12/19/16 at 09:00; Status Future Hold Amlodipine Besylate (Norvasc) 10 mg DAILY PO Last administered on 12/30/16 09: 53; Admin Dose 10 MG; Start 12/19/16 at 09:00 Atorvastatin Calcium (Lipitor) 40 mg QHS PO Last administered on 12/29/16 21: 31; Admin Dose 40 MG; Start 12/18/16 at 21:00 Ferrous Sulfate (Ferrous Sulfate (Ec)) 325 mg BID PO Last administered on 09:52; Admin Dose 325 MG; Start 12/18/16 at 21:00 Metoprolol Tartrate (Lopressor) 50 mg BID PO Last administered on 12/30/16 09: 52; Admin Dose 50 MG; Start 12/18/16 at 21:00 Tramadol HCl (Ultram) 50 mg Q6H PRN PO PAIN Last administered on 12/25/16 23: 03; Admin Dose 50 MG; Start 12/18/16 at 19:00 Benazepril HCl (Lotensin) 40 mg DAILY PO Last administered on 12/30/16 09:53; Admin Dose 40 MG; Start 12/19/16 at 09:00 Nicotine (Nicoderm 21 Mg/ 24hr) 1 patch DAILY TRANSDERM Last administered on 09:53; Admin Dose 1 PATCH; Start 12/20/16 at 09:00 Nicotine Polacrilex (Nicorette) 2 mg Q2H PRN BUCCAL agitation; Start 12/20/16 at 09:30 Acetaminophen/ Hydrocodone Bitart ([place] (10/325)) 1 tab Q4H PRN GTB pain Last administered on 12/27/16 02:43; Admin Dose 1 TAB; Start 12/20/16 at 10:00 Morphine Sulfate 3 mg 3 mg Q3H PRN IV SEVERE PAIN LEVEL 7-10 Last administered on 12/30/16 12:45; Admin Dose 3 MG; Start 12/20/16 at 11:00 Ceftriaxone Sodium (Rocephin) 50 ml @ 100 mls/hr Q24H IVPB Last administered on 12/29/16 14:38; Admin Dose 100 MLS/HR; Start 12/21/16 at 15:00 Zolpidem Tartrate (Ambien) 10 mg HS PRN PO INSOMNIA Last administered on 23:54; Admin Dose 10 MG; Start 12/24/16 at 01:00 Miscellaneous Information (Pending Santyl Order For Wound Care) This patient curran... PRN PRN XX WOUND CARE; Start 12/29/16 at 17:30 MICHELE COUCH NP Dec 30, 2016 14:08
[2016-12-30] MEDS: CEFTRIAXONE 1 GM/50 ML (PMX) 50 ML IVPB SCH (16:01)
--- NOTE | 2016-12-30 16:05 | PN ---
Date/Time of Note Date/Time of Note DATE: 12/30/16 TIME: 16:03 Assessment/Plan VTE Prophylaxis VTE Prophylaxis Intervention: SCD's Lines/Catheters IV C[facility] Type (from [facility] Saline Lock Urinary Cath still in place: No Assessment/Plan Assessment/Plan 61 yo M here with wound infection, concern for prosthetic joint infection v wound infection Found to have S Aureus bacteremia. Patient also had multiple I& Ds and wound vac placement (and arthrocentesis 12.21) PLAN: - Ortho following, last washout 10.3 -On Ceftriaxone as pt with PCN allergy, pt to be transitioned to PO cipro at discharge for 4 more weeks of abx - cont home meds for patient's hypertension and high cholesterol. - Counseled on smoking cessation. Continue nicotine patch medically clear for discharge. will need wound vac and outpatient wound care set up. CM cs placed Subjective 24 Hr Interval Summary Free Text/Dictation pt without complaint. ambulating rooms/halls in bathrobe Exam/Review of Systems Vital Signs Vitals Vital Signs Date Time Temp Pulse Resp B/P Pulse Ox O2 Delivery O2 Flow Rate FiO2 12/30/16 14:02 98.1 67 16 124/65 95 12/29/16 17:54 Room Air 12/29/16 17:25 2.0 Intake and Output 12/29/16 12/29/16 12/30/16 15:00 23:00 07:00 Intake Total 1150 ml 800 ml Output Total 0 ml 625 ml 25 ml Balance 0 ml 525 ml 775 ml Exam nad no mrg lungs clear abd soft no rashes Results Result Diagram: 12/30/16 1047 12/30/16 1047 Results 24 hrs Laboratory Tests Test 12/30/16 10:47 White Blood Count 9.1 Red Blood Count 3.69 L Hemoglobin 10.8 L Hematocrit 34.1 L Mean Corpuscular Volume 92.4 Mean Corpuscular Hemoglobin 29.3 Mean Corpuscular Hemoglobin Concent 31.7 L Red Cell Distribution Width 13.7 Platelet Count 510 H Mean Platelet Volume 9.6 Neutrophils % 71.8 Lymphocytes % 14.5 L Monocytes % 9.1 Eosinophils % 2.8 Basophils % 1.5 Nucleated Red Blood Cells % 0.0 Neutrophils # 6.5 Lymphocytes # 1.3 Monocytes # 0.8 Eosinophils # 0.3 Basophils # 0.1 Nucleated Red Blood Cells # 0.0 Sodium Level 132 L Potassium Level 5.0 Chloride Level 96 L Carbon Dioxide Level 31 Anion Gap 10 Blood Urea Nitrogen 24 H Creatinine 1.15 Glucose Level 117 Calcium Level 8.6 Medications Medications Current Medications Acetaminophen (Tylenol Tab) 650 mg Q6H PRN PO PAIN LEVEL 1-3 OR FEVER; Start at 19:00 Acetaminophen/ Hydrocodone Bitart ([place] (5/325)) 1 tab Q6H PRN PO MODERATE PAIN LEVEL 4-6 Last administered on 12/27/16 14:57; Admin Dose 1 TAB; Start at 19:00 Acetaminophen/ Hydrocodone Bitart ([place] (5/325)) 2 tab Q6H PRN PO SEVERE PAIN LEVEL 7-10 Last administered on 12/20/16 09:01; Admin Dose 2 TAB; Start at 19:00 Enoxaparin Sodium (Lovenox) 40 mg DAILY SC Last administered on 12/22/16 09:21 ; Admin Dose 40 MG; Start 12/19/16 at 09:00; Status Future Hold Amlodipine Besylate (Norvasc) 10 mg DAILY PO Last administered on 12/30/16 09: 53; Admin Dose 10 MG; Start 12/19/16 at 09:00 Atorvastatin Calcium (Lipitor) 40 mg QHS PO Last administered on 12/29/16 21: 31; Admin Dose 40 MG; Start 12/18/16 at 21:00 Ferrous Sulfate (Ferrous Sulfate (Ec)) 325 mg BID PO Last administered on 09:52; Admin Dose 325 MG; Start 12/18/16 at 21:00 Metoprolol Tartrate (Lopressor) 50 mg BID PO Last administered on 12/30/16 09: 52; Admin Dose 50 MG; Start 12/18/16 at 21:00 Tramadol HCl (Ultram) 50 mg Q6H PRN PO PAIN Last administered on 12/25/16 23: 03; Admin Dose 50 MG; Start 12/18/16 at 19:00 Benazepril HCl (Lotensin) 40 mg DAILY PO Last administered on 12/30/16 09:53; Admin Dose 40 MG; Start 12/19/16 at 09:00 Nicotine (Nicoderm 21 Mg/ 24hr) 1 patch DAILY TRANSDERM Last administered on 09:53; Admin Dose 1 PATCH; Start 12/20/16 at 09:00 Nicotine Polacrilex (Nicorette) 2 mg Q2H PRN BUCCAL agitation; Start 12/20/16 at 09:30 Acetaminophen/ Hydrocodone Bitart ([place] (10/325)) 1 tab Q4H PRN GTB pain Last administered on 12/27/16 02:43; Admin Dose 1 TAB; Start 12/20/16 at 10:00 Morphine Sulfate 3 mg 3 mg Q3H PRN IV SEVERE PAIN LEVEL 7-10 Last administered on 12/30/16 12:45; Admin Dose 3 MG; Start 12/20/16 at 11:00 Ceftriaxone Sodium (Rocephin) 50 ml @ 100 mls/hr Q24H IVPB Last administered on 12/29/16 14:38; Admin Dose 100 MLS/HR; Start 12/21/16 at 15:00 Zolpidem Tartrate (Ambien) 10 mg HS PRN PO INSOMNIA Last administered on 23:54; Admin Dose 10 MG; Start 12/24/16 at 01:00 Miscellaneous Information (Pending Santyl Order For Wound Care) This patient curran... PRN PRN XX WOUND CARE; Start 12/29/16 at 17:30 DOROTHY BRYSON MD Dec 30, 2016 16:05
[2016-12-30 20:00] VITALS: BP 127/71; RESP 18
[2016-12-30] MEDS: ATORVASTATIN 40 MG TAB PO SCH (20:55)
[2016-12-30] MEDS: HYDROCODONE/APAP (5/325) TAB PO PRN (20:56)
[2016-12-31] MEDS: morphine 4 MG/ML VIAL IV PRN ×8 (00:54→22:33)
[2016-12-31] MEDS: ZOLPIDEM 5 MG TAB PO PRN (01:59)
[2016-12-31 02:16] VITALS: BP 112/57; RESP 18
[2016-12-31 06:24] LABS: BASOPHIL # 0.2 10^3/ul (0.0-0.1); BASOPHILS % 1.8 % (0.0-2.0); EOSINOPHILS # 0.3 10^3/ul (0.0-0.5); EOSINOPHILS % 3.3 % (0.0-7.0); HEMATOCRIT 37.1 % (42.0-52.0); HEMOGLOBIN 11.4 g/dl (14.0-18.0); LYMPHOCYTES # 1.5 10^3/ul (0.8-2.9); LYMPHOCYTES % 17.5 % (15.0-51.0); MEAN CORPUSCULAR HEMOGLOBIN 28.5 pg (29.0-33.0); MEAN CORPUSCULAR HGB CONC 30.7 g/dl (32.0-37.0); MEAN CORPUSCULAR VOLUME 92.8 fl (82.0-101.0); MEAN PLATELET VOLUME 9.3 fl (7.4-10.4); MONOCYTE # 0.9 10^3/ul (0.3-0.9); MONOCYTES % 10.6 % (0.0-11.0); NEUTROPHIL # 5.6 10^3/ul (1.6-7.5); NEUTROPHILS % 66.4 % (39.0-77.0); PLATELET COUNT 524 10^3/UL (140-415); RED CELL DISTRIBUTION WIDTH 13.5 % (11.5-14.5); WHITE BLOOD COUNT 8.4 10^3/ul (4.8-10.8)
[2016-12-31 06:56] LABS: CALCIUM 8.8 mg/dl (8.4-10.2); CREATININE 1.17 mg/dl (0.61-1.24); POTASSIUM 4.6 mmol/L (3.5-5.1)
[2016-12-31 07:46] VITALS: BP 114/64; RESP 18
[2016-12-31] MEDS: HYDROCODONE/APAP (5/325) TAB PO PRN ×3 (08:43→21:04)
[2016-12-31] MEDS: AMLODIPINE 10 MG TAB PO SCH (08:43)
[2016-12-31] MEDS: BENAZEPRIL 40 MG TAB PO SCH (08:43)
[2016-12-31] MEDS: NICOTINE (21 MG/24 HR) PATCH TRANSDERM SCH (08:44)
[2016-12-31] MEDS: METOPROLOL 50 MG TAB PO SCH ×2 (08:44→21:04)
[2016-12-31] MEDS: FERROUS SULFATE (EC) 325 MG TAB PO SCH ×2 (08:44→21:03)
--- NOTE | 2016-12-31 13:08 | CONS ---
Date/Time of Note Date/Time of Note DATE: 12/31/16 TIME: 13:07 Assessment/Plan Assessment/Plan Chief Complaint/Hosp Course Alert complaining of right shoulder pain at the wound VAC site, no fevers Temperature 98.2 pulse 68 respirations 18 blood pressure 114/64 saturation 96% on room air WBC 8.4 platelets 524, no shift BUN to creatinine 1.17 Abx: Rocephin Physical examination: well-nourished well-developed middle-aged man who is in no distress head atraumatic normocephalic sclerae anicteric neck is supple chest rise symmetrical breath sounds clear heart S1-S2 abdomen soft bowel sounds present extremities without cyanosis skin with right upper back wound to wound VAC Assessment: 1. Status post oxacillin sensitive staph aureus bacteremia secondary to #2 2. Right posterior shoulder infected wound, status post I&D with wound VAC application, status post arthrocentesis of right anterior shoulder 3. Hx B shoulder replacement Plan: Patient remains stable, continue abx, f/u ortho rec-s. Anticipate discharge on oral ciprofloxacin for 4-6 weeks Problems: Consultation Date/Type/Reason Admit Date/Time Dec 18, 2016 at 17:39 Type of Consultation: id Exam/Review of Systems Vital Signs Vitals Vital Signs Date Time Temp Pulse Resp B/P Pulse Ox O2 Delivery O2 Flow Rate FiO2 12/31/16 07:46 98.2 68 18 114/64 96 12/29/16 17:54 Room Air 12/29/16 17:25 2.0 Intake and Output 12/30/16 12/30/16 12/31/16 15:00 23:00 07:00 Intake Total 1730 ml 1200 ml Balance 1730 ml 1200 ml Results Result Diagram: 12/31/16 0601 12/31/16 0601 Results 24 hrs Laboratory Tests Test 12/31/16 06:01 White Blood Count 8.4 Red Blood Count 4.00 L Hemoglobin 11.4 L Hematocrit 37.1 L Mean Corpuscular Volume 92.8 Mean Corpuscular Hemoglobin 28.5 L Mean Corpuscular Hemoglobin Concent 30.7 L Red Cell Distribution Width 13.5 Platelet Count 524 H Mean Platelet Volume 9.3 Neutrophils % 66.4 Lymphocytes % 17.5 Monocytes % 10.6 Eosinophils % 3.3 Basophils % 1.8 Nucleated Red Blood Cells % 0.0 Neutrophils # 5.6 Lymphocytes # 1.5 Monocytes # 0.9 Eosinophils # 0.3 Basophils # 0.2 H Nucleated Red Blood Cells # 0.0 Sodium Level 137 Potassium Level 4.6 Chloride Level 99 Carbon Dioxide Level 31 Anion Gap 12 Blood Urea Nitrogen 20 Creatinine 1.17 Glucose Level 107 Calcium Level 8.8 Medications Medications Current Medications Acetaminophen (Tylenol Tab) 650 mg Q6H PRN PO PAIN LEVEL 1-3 OR FEVER; Start at 19:00 Acetaminophen/ Hydrocodone Bitart ([place] (5/325)) 1 tab Q6H PRN PO MODERATE PAIN LEVEL 4-6 Last administered on 12/31/16 08:43; Admin Dose 1 TAB; Start at 19:00 Acetaminophen/ Hydrocodone Bitart ([place] (5/325)) 2 tab Q6H PRN PO SEVERE PAIN LEVEL 7-10 Last administered on 12/20/16 09:01; Admin Dose 2 TAB; Start at 19:00 Enoxaparin Sodium (Lovenox) 40 mg DAILY SC Last administered on 12/22/16 09:21 ; Admin Dose 40 MG; Start 12/19/16 at 09:00; Status Future Hold Amlodipine Besylate (Norvasc) 10 mg DAILY PO Last administered on 12/31/16 08: 43; Admin Dose 10 MG; Start 12/19/16 at 09:00 Atorvastatin Calcium (Lipitor) 40 mg QHS PO Last administered on 12/30/16 20: 55; Admin Dose 40 MG; Start 12/18/16 at 21:00 Ferrous Sulfate (Ferrous Sulfate (Ec)) 325 mg BID PO Last administered on 08:44; Admin Dose 325 MG; Start 12/18/16 at 21:00 Metoprolol Tartrate (Lopressor) 50 mg BID PO Last administered on 12/31/16 08: 44; Admin Dose 50 MG; Start 12/18/16 at 21:00 Tramadol HCl (Ultram) 50 mg Q6H PRN PO PAIN Last administered on 12/25/16 23: 03; Admin Dose 50 MG; Start 12/18/16 at 19:00 Benazepril HCl (Lotensin) 40 mg DAILY PO Last administered on 12/31/16 08:43; Admin Dose 40 MG; Start 12/19/16 at 09:00 Nicotine (Nicoderm 21 Mg/ 24hr) 1 patch DAILY TRANSDERM Last administered on 08:44; Admin Dose 1 PATCH; Start 12/20/16 at 09:00 Nicotine Polacrilex (Nicorette) 2 mg Q2H PRN BUCCAL agitation; Start 12/20/16 at 09:30 Acetaminophen/ Hydrocodone Bitart ([place] (10/325)) 1 tab Q4H PRN GTB pain Last administered on 12/27/16 02:43; Admin Dose 1 TAB; Start 12/20/16 at 10:00 Morphine Sulfate 3 mg 3 mg Q3H PRN IV SEVERE PAIN LEVEL 7-10 Last administered on 12/31/16 10:05; Admin Dose 3 MG; Start 12/20/16 at 11:00 Ceftriaxone Sodium (Rocephin) 50 ml @ 100 mls/hr Q24H IVPB Last administered on 12/30/16 16:01; Admin Dose 100 MLS/HR; Start 12/21/16 at 15:00 Zolpidem Tartrate (Ambien) 10 mg HS PRN PO INSOMNIA Last administered on 01:59; Admin Dose 10 MG; Start 12/24/16 at 01:00 Miscellaneous Information (Pending Santyl Order For Wound Care) This patient curran... PRN PRN XX WOUND CARE; Start 12/29/16 at 17:30 MICHELE COUCH NP Dec 31, 2016 13:08
--- NOTE | 2016-12-31 13:38 | DS ---
Date/Time of Note Date/Time of Note DATE: 12/31/16 TIME: 13:35 Discharge Summary Admission/Discharge Info Admit Date/Time Dec 18, 2016 at 17:39 Discharge Date/Time Discharge Diagnosis MSSA bacteremia 2/2 R posterior shoulder wound infection Consults orthopedics, infectious disease Procedures 9.24 1. Irrigation and debridement of right posterior flank wound subcutaneous tissue muscle. 2. Application of negative pressure wound vac therapy less than 50 square cm. 3. Arthrocentesis of anterior glenohumeral joint. 4. Specimen and culture. 9.27 1. Irrigation and debridement of the right posterior shoulder VAC. 2. Application of negative wound VAC therapy less than 50 square cm. 3. Arthrocentesis anterior right glenohumeral joint. 9.29: 1. Irrigation debridement, right posterior shoulder wound. 2. Application of negative pressure wound VAC therapy less than 50 square cm. 10.2 1. Irrigation of right posterior shoulder wound. 2. Application of negative wound VAC direct therapy less than 50 square cm. MICRO 9.21 blood cultures 2/2 and wound culture MSSA 9.22 blood culture ng 2/2 9.24 shoulder wound washout culture MSSA TTE 9.22 Conclusions 1. Normal left ventricular systolic function. Normal left ventricular cavity size. Left ventricular wall thickness upper limits of normal. Ejection fraction is visually estimated at 55-60 %. Tissue Doppler/Mitral Doppler indices are consistent with impaired relaxation (Stage I diastolic dysfunction). 2. There is mild enlargement of left atrium. 3. Mitral valve leaflets appear mildly thickened. Mild mitral leaflet calcification. Mild mitral valve regurgitation. 4. Normal appearance of the aortic valve. Aortic valve opens normally. Mild aortic valve regurgitation. 5. Normal appearance of the tricuspid valve. Estimated peak PA systolic pressure 43 mmHg. There is mild tricuspid regurgitation. Hx of Present Illness CC R shoulder wound HPI 61 yo M with pmhx HTN, HL, SHIRA, h/o bl shoulder replacements with most recent surgical intervention 1 mo ago presents with a R shoulder wound. Pt with remote h/o bl shoulder replacements. A few weeks ago had R shoulder pain, orthopedic eval concerning for loosening of glenoid part of prosthesis. 9.1 pt underwent R total shoulder arthroplasty with loose body removal. The loose body was noted to be outside of the actual joint space and was retrieved from under the skin. Pt then missed his f/u ortho clinic appointment but was then seen yesterday and noted to have redness and some purulence draining from his R shoulder surgical site. This was cultured in clinic. Because this did not resolve overnight ,he presented to the ER today for further eval. Of note, at time of my eval of the patient, orthopedist was in the room and preparing to do an I&D. = Hospital Course Pt admitted for infected shoulder wound. Underwent several washouts with wound vac placement and replacement. Blood, wound, and operative cultures all grew out MSSA. TTE without clear evidence of IE. Per ortho given pt with large open wound and wound vac, 4+ weeks of systemic abx advised. Per ID ok to transition from IV Ceftriaxone to PO ciprofloxacin and discharge to SNF. Wound vac to stay in place and pt to follow up with ID and ortho to see if >4 weeks of abx are indicated. Home Meds Reported Medications Hydrocodone/Acetaminophen ([place] 5-325 Tablet) 1 Each Tablet, 1 EACH PO DAILY for NEEDED, TAB 12/18/16 Tramadol Hcl* (Ultram*) 50 Mg Tablet, 50 MG PO Q6H Y for PAIN, TAB 12/18/16 Quinapril Hcl (Quinapril Hcl) 40 Mg Tablet, 40 MG PO DAILY, #30 TAB 11/28/16 Metoprolol Tartrate* (Lopressor*) 50 Mg Tab, 50 MG PO BID, #60 TAB 11/28/16 Atorvastatin* (Atorvastatin*) 40 Mg Tablet, 40 MG PO QHS, #30 TAB 11/28/16 Ferrous Sulfate* (Ferrous Sulfate*) 325 Mg Tabec, 325 MG PO BID, TAB 11/28/16 Amlodipine Besylate* (Amlodipine Besylate*) 10 Mg Tablet, 10 MG PO DAILY, #30 TAB 11/28/16 Follow-up Plan wound vac with 3x/week wound vac changes at [facility] orthopedics and infectious disease within [address] Jones Office Address [address] [place] [address] Moore Office Address [address] [place] [address] Office Primary Care Provider [facility] Time spent on discharge: > 30 minutes Pending Labs Laboratory Tests Test 12/31/16 06:01 White Blood Count 8.410^3/ul (4.8-10.8) Red Blood Count 4.0010^6/ul (4.70-6.10) Hemoglobin 11.4g/dl (14.0-18.0) Hematocrit 37.1% (42.0-52.0) Mean Corpuscular Volume 92.8fl (82.0-101.0) Mean Corpuscular Hemoglobin 28.5pg (29.0-33.0) Mean Corpuscular Hemoglobin Concent 30.7g/dl (32.0-37.0) Red Cell Distribution Width 13.5% (11.5-14.5) Platelet Count 75919^3/UL (140-415) Mean Platelet Volume 9.3fl (7.4-10.4) Neutrophils % 66.4% (39.0-77.0) Lymphocytes % 17.5% (15.0-51.0) Monocytes % 10.6% (0.0-11.0) Eosinophils % 3.3% (0.0-7.0) Basophils % 1.8% (0.0-2.0) Nucleated Red Blood Cells % 0.0/100WBC (0.0-0.0) Neutrophils # 5.610^3/ul (1.6-7.5) Lymphocytes # 1.510^3/ul (0.8-2.9) Monocytes # 0.910^3/ul (0.3-0.9) Eosinophils # 0.310^3/ul (0.0-0.5) Basophils # 0.210^3/ul (0.0-0.1) Nucleated Red Blood Cells # 0.010^3/ul (0.0-0.0) Sodium Level 137mmol/L (135-144) Potassium Level 4.6mmol/L (3.5-5.1) Chloride Level 99mmol/L (97-110) Carbon Dioxide Level 31mmol/L (21-31) Anion Gap 12 (8-16) Blood Urea Nitrogen 20mg/dl (7-20) Creatinine 1.17mg/dl (0.61-1.24) Glucose Level 107mg/dl (70-220) Calcium Level 8.8mg/dl (8.4-10.2) Copies To: CC: SARANYA JONES MD; TIMO MOORE MD, ELLEN MD Dec 31, 2016 13:38
[2016-12-31 14:21] VITALS: BP 136/65; RESP 16
[2016-12-31] MEDS: CEFTRIAXONE 1 GM/50 ML (PMX) 50 ML IVPB SCH (15:04)
[2016-12-31 20:43] VITALS: BP 125/60; RESP 18
[2016-12-31] MEDS: ATORVASTATIN 40 MG TAB PO SCH (21:04)
[2017-01-01] MEDS: ZOLPIDEM 5 MG TAB PO PRN (01:10)
[2017-01-01 02:00] VITALS: BP 123/60; RESP 16
[2017-01-01] MEDS: morphine 4 MG/ML VIAL IV PRN ×7 (02:40→21:38)
[2017-01-01 06:13] LABS: BASOPHIL # 0.1 10^3/ul (0.0-0.1); BASOPHILS % 1.7 % (0.0-2.0); EOSINOPHILS # 0.2 10^3/ul (0.0-0.5); EOSINOPHILS % 2.3 % (0.0-7.0); HEMOGLOBIN 11.4 g/dl (14.0-18.0); LYMPHOCYTES # 1.1 10^3/ul (0.8-2.9); LYMPHOCYTES % 13.7 % (15.0-51.0); MEAN CORPUSCULAR HGB CONC 31.7 g/dl (32.0-37.0); MEAN CORPUSCULAR VOLUME 91.6 fl (82.0-101.0); MEAN PLATELET VOLUME 9.4 fl (7.4-10.4); MONOCYTE # 0.8 10^3/ul (0.3-0.9); MONOCYTES % 9.4 % (0.0-11.0); NEUTROPHILS % 72.4 % (39.0-77.0); PLATELET COUNT 528 10^3/UL (140-415); RED BLOOD COUNT 3.93 10^6/ul (4.70-6.10); RED CELL DISTRIBUTION WIDTH 13.3 % (11.5-14.5); WHITE BLOOD COUNT 8.3 10^3/ul (4.8-10.8)
[2017-01-01 06:50] LABS: CALCIUM 9.1 mg/dl (8.4-10.2); CREATININE 1.05 mg/dl (0.61-1.24); POTASSIUM 4.7 mmol/L (3.5-5.1)
[2017-01-01 07:29] VITALS: BP 155/78; RESP 20
[2017-01-01] MEDS: AMLODIPINE 10 MG TAB PO SCH (08:22)
[2017-01-01] MEDS: METOPROLOL 50 MG TAB PO SCH ×2 (08:23→21:37)
[2017-01-01] MEDS: BENAZEPRIL 40 MG TAB PO SCH (08:23)
[2017-01-01] MEDS: FERROUS SULFATE (EC) 325 MG TAB PO SCH ×2 (08:23→21:37)
[2017-01-01] MEDS: NICOTINE (21 MG/24 HR) PATCH TRANSDERM SCH (08:23)
[2017-01-01] MEDS: HYDROCODONE/APAP (5/325) TAB PO PRN ×2 (09:43→19:36)
--- NOTE | 2017-01-01 13:17 | QN ---
Documentation Comment Pt discharged yesterday but SNF details still pending Pt not in room at time of my attempted eval no untoward events documented. continue current plan of care. Pt to remain on abx (either IV daily rocephin or BID PO cipro) until early January DOROTHY BRYSON MD Jan 01, 2017 13:17
--- NOTE | 2017-01-01 13:24 | CONS ---
Date/Time of Note Date/Time of Note DATE: 01/01/17 TIME: 13:23 Assessment/Plan Assessment/Plan Chief Complaint/Hosp Course No acute changes, sleeping, no fevers, nad Abx: Rocephin Physical examination: well-nourished well-developed middle-aged man who is in no distress head atraumatic normocephalic sclerae anicteric neck is supple chest rise symmetrical breath sounds clear heart S1-S2 abdomen soft bowel sounds present extremities without cyanosis skin with right upper back wound to wound VAC Assessment: 1. Status post oxacillin sensitive staph aureus bacteremia secondary to #2 2. Right posterior shoulder infected wound, status post I&D with wound VAC application, status post arthrocentesis of right anterior shoulder 3. Hx B shoulder replacement Plan: Patient remains stable, continue abx. Anticipate discharge on oral ciprofloxacin for 4-6 weeks, f/u with ortho outpatient [facility] staff Problems: Consultation Date/Type/Reason Admit Date/Time Dec 18, 2016 at 17:39 Type of Consultation: id Exam/Review of Systems Vital Signs Vitals Vital Signs Date Time Temp Pulse Resp B/P Pulse Ox O2 Delivery O2 Flow Rate FiO2 01/01/17 07:29 98.2 78 20 155/78 97 12/29/16 17:54 Room Air 12/29/16 17:25 2.0 Intake and Output 12/31/16 12/31/16 01/01/17 14:59 22:59 06:59 Intake Total 1370 ml 1000 ml Balance 1370 ml 1000 ml Results Result Diagram: 01/01/17 0525 01/01/17 0525 Results 24 hrs Laboratory Tests Test 01/01/17 05:25 White Blood Count 8.3 Red Blood Count 3.93 L Hemoglobin 11.4 L Hematocrit 36.0 L Mean Corpuscular Volume 91.6 Mean Corpuscular Hemoglobin 29.0 Mean Corpuscular Hemoglobin Concent 31.7 L Red Cell Distribution Width 13.3 Platelet Count 528 H Mean Platelet Volume 9.4 Neutrophils % 72.4 Lymphocytes % 13.7 L Monocytes % 9.4 Eosinophils % 2.3 Basophils % 1.7 Nucleated Red Blood Cells % 0.0 Neutrophils # 6.0 Lymphocytes # 1.1 Monocytes # 0.8 Eosinophils # 0.2 Basophils # 0.1 Nucleated Red Blood Cells # 0.0 Sodium Level 134 L Potassium Level 4.7 Chloride Level 96 L Carbon Dioxide Level 32 H Anion Gap 11 Blood Urea Nitrogen 20 Creatinine 1.05 Glucose Level 110 Calcium Level 9.1 Medications Medications Current Medications Acetaminophen (Tylenol Tab) 650 mg Q6H PRN PO PAIN LEVEL 1-3 OR FEVER; Start at 19:00 Acetaminophen/ Hydrocodone Bitart ([place] (5/325)) 1 tab Q6H PRN PO MODERATE PAIN LEVEL 4-6 Last administered on 01/01/17 09:43; Admin Dose 1 TAB; Start at 19:00 Acetaminophen/ Hydrocodone Bitart ([place] (5/325)) 2 tab Q6H PRN PO SEVERE PAIN LEVEL 7-10 Last administered on 12/20/16 09:01; Admin Dose 2 TAB; Start at 19:00 Enoxaparin Sodium (Lovenox) 40 mg DAILY SC Last administered on 12/22/16 09:21 ; Admin Dose 40 MG; Start 12/19/16 at 09:00; Status Future Hold Amlodipine Besylate (Norvasc) 10 mg DAILY PO Last administered on 01/01/17 08: 22; Admin Dose 10 MG; Start 12/19/16 at 09:00 Atorvastatin Calcium (Lipitor) 40 mg QHS PO Last administered on 12/31/16 21: 04; Admin Dose 40 MG; Start 12/18/16 at 21:00 Ferrous Sulfate (Ferrous Sulfate (Ec)) 325 mg BID PO Last administered on 08:23; Admin Dose 325 MG; Start 12/18/16 at 21:00 Metoprolol Tartrate (Lopressor) 50 mg BID PO Last administered on 01/01/17 08: 23; Admin Dose 50 MG; Start 12/18/16 at 21:00 Tramadol HCl (Ultram) 50 mg Q6H PRN PO PAIN Last administered on 12/25/16 23: 03; Admin Dose 50 MG; Start 12/18/16 at 19:00 Benazepril HCl (Lotensin) 40 mg DAILY PO Last administered on 01/01/17 08:23; Admin Dose 40 MG; Start 12/19/16 at 09:00 Nicotine (Nicoderm 21 Mg/ 24hr) 1 patch DAILY TRANSDERM Last administered on 08:23; Admin Dose 1 PATCH; Start 12/20/16 at 09:00 Nicotine Polacrilex (Nicorette) 2 mg Q2H PRN BUCCAL agitation; Start 12/20/16 at 09:30 Acetaminophen/ Hydrocodone Bitart ([place] (10/325)) 1 tab Q4H PRN GTB pain Last administered on 12/27/16 02:43; Admin Dose 1 TAB; Start 12/20/16 at 10:00 Morphine Sulfate 3 mg 3 mg Q3H PRN IV SEVERE PAIN LEVEL 7-10 Last administered on 01/01/17 11:48; Admin Dose 3 MG; Start 12/20/16 at 11:00 Ceftriaxone Sodium (Rocephin) 50 ml @ 100 mls/hr Q24H IVPB Last administered on 12/31/16 15:04; Admin Dose 100 MLS/HR; Start 12/21/16 at 15:00 Zolpidem Tartrate (Ambien) 10 mg HS PRN PO INSOMNIA Last administered on 01:10; Admin Dose 10 MG; Start 12/24/16 at 01:00 Miscellaneous Information (Pending Santyl Order For Wound Care) This patient curran... PRN PRN XX WOUND CARE; Start 12/29/16 at 17:30 MICHELE COUCH NP Jan 01, 2017 13:24
[2017-01-01 14:15] VITALS: BP 144/73; RESP 20
[2017-01-01] MEDS: CEFTRIAXONE 1 GM/50 ML (PMX) 50 ML IVPB SCH (15:14)
[2017-01-01 20:16] VITALS: BP 129/69; RESP 18
[2017-01-01] MEDS: ATORVASTATIN 40 MG TAB PO SCH (21:37)
[2017-01-02] MEDS: morphine 4 MG/ML VIAL IV PRN ×7 (00:48→22:35)
[2017-01-02 02:00] VITALS: BP 149/80; RESP 18
[2017-01-02] MEDS: ZOLPIDEM 5 MG TAB PO PRN (02:07)
[2017-01-02] MEDS: HYDROCODONE/APAP (5/325) TAB PO PRN ×2 (03:05→13:34)
[2017-01-02 08:01] VITALS: BP 124/69; RESP 18
[2017-01-02] MEDS: BENAZEPRIL 40 MG TAB PO SCH (09:01)
[2017-01-02] MEDS: METOPROLOL 50 MG TAB PO SCH ×2 (09:01→20:07)
[2017-01-02] MEDS: NICOTINE (21 MG/24 HR) PATCH TRANSDERM SCH (09:01)
[2017-01-02] MEDS: FERROUS SULFATE (EC) 325 MG TAB PO SCH ×2 (09:01→20:06)
[2017-01-02] MEDS: AMLODIPINE 10 MG TAB PO SCH (09:02)
--- NOTE | 2017-01-02 11:54 | CONS ---
Date/Time of Note Date/Time of Note DATE: 01/02/17 TIME: 11:54 Assessment/Plan Assessment/Plan Chief Complaint/Hosp Course No acute changes, sleeping, no fevers, nad Abx: Rocephin Physical examination: well-nourished well-developed middle-aged man who is in no distress head atraumatic normocephalic sclerae anicteric neck is supple chest rise symmetrical breath sounds clear heart S1-S2 abdomen soft bowel sounds present extremities without cyanosis skin with right upper back wound to wound VAC Assessment: 1. Status post oxacillin sensitive staph aureus bacteremia secondary to #2 2. Right posterior shoulder infected wound, status post I&D with wound VAC application, status post arthrocentesis of right anterior shoulder 3. Hx B shoulder replacement Plan: Patient remains unchanged, continue abx. Anticipate discharge on oral ciprofloxacin for 4-6 weeks, f/u with ortho outpatient [facility] staff Problems: Consultation Date/Type/Reason Admit Date/Time Dec 18, 2016 at 17:39 Type of Consultation: id Exam/Review of Systems Vital Signs Vitals Vital Signs Date Time Temp Pulse Resp B/P Pulse Ox O2 Delivery O2 Flow Rate FiO2 01/02/17 08:01 98.4 67 18 124/69 97 12/29/16 17:54 Room Air 12/29/16 17:25 2.0 Intake and Output 01/01/17 01/01/17 01/02/17 15:00 23:00 07:00 Intake Total 1090 ml 500 ml Balance 1090 ml 500 ml Results Result Diagram: 01/01/17 0525 01/01/17 0525 Medications Medications Current Medications Acetaminophen (Tylenol Tab) 650 mg Q6H PRN PO PAIN LEVEL 1-3 OR FEVER; Start at 19:00 Acetaminophen/ Hydrocodone Bitart ([place] (5/325)) 1 tab Q6H PRN PO MODERATE PAIN LEVEL 4-6 Last administered on 01/02/17 03:05; Admin Dose 1 TAB; Start at 19:00 Acetaminophen/ Hydrocodone Bitart ([place] (5/325)) 2 tab Q6H PRN PO SEVERE PAIN LEVEL 7-10 Last administered on 12/20/16 09:01; Admin Dose 2 TAB; Start at 19:00 Enoxaparin Sodium (Lovenox) 40 mg DAILY SC Last administered on 12/22/16 09:21 ; Admin Dose 40 MG; Start 12/19/16 at 09:00; Status Future Hold Amlodipine Besylate (Norvasc) 10 mg DAILY PO Last administered on 01/02/17 09: 02; Admin Dose 10 MG; Start 12/19/16 at 09:00 Atorvastatin Calcium (Lipitor) 40 mg QHS PO Last administered on 01/01/17 21: 37; Admin Dose 40 MG; Start 12/18/16 at 21:00 Ferrous Sulfate (Ferrous Sulfate (Ec)) 325 mg BID PO Last administered on 09:01; Admin Dose 325 MG; Start 12/18/16 at 21:00 Metoprolol Tartrate (Lopressor) 50 mg BID PO Last administered on 01/02/17 09: 01; Admin Dose 50 MG; Start 12/18/16 at 21:00 Tramadol HCl (Ultram) 50 mg Q6H PRN PO PAIN Last administered on 12/25/16 23: 03; Admin Dose 50 MG; Start 12/18/16 at 19:00 Benazepril HCl (Lotensin) 40 mg DAILY PO Last administered on 01/02/17 09:01; Admin Dose 40 MG; Start 12/19/16 at 09:00 Nicotine (Nicoderm 21 Mg/ 24hr) 1 patch DAILY TRANSDERM Last administered on 09:01; Admin Dose 1 PATCH; Start 12/20/16 at 09:00 Nicotine Polacrilex (Nicorette) 2 mg Q2H PRN BUCCAL agitation; Start 12/20/16 at 09:30 Acetaminophen/ Hydrocodone Bitart ([place] (10/325)) 1 tab Q4H PRN GTB pain Last administered on 12/27/16 02:43; Admin Dose 1 TAB; Start 12/20/16 at 10:00 Morphine Sulfate 3 mg 3 mg Q3H PRN IV SEVERE PAIN LEVEL 7-10 Last administered on 01/02/17 09:00; Admin Dose 3 MG; Start 12/20/16 at 11:00 Ceftriaxone Sodium (Rocephin) 50 ml @ 100 mls/hr Q24H IVPB Last administered on 01/01/17 15:14; Admin Dose 100 MLS/HR; Start 12/21/16 at 15:00 Zolpidem Tartrate (Ambien) 10 mg HS PRN PO INSOMNIA Last administered on t 02:07; Admin Dose 10 MG; Start 12/24/16 at 01:00 [facility]isc[facility] This patient curran... PRN PRN XX WOUND CARE; Start 12/29/16 at 17:30 MICHELE COUCH NP Jan 02, 2017 11:54
--- NOTE | 2017-01-02 12:41 | PN ---
Date/Time of Note Date/Time of Note DATE: 01/02/17 TIME: 12:39 Assessment/Plan VTE Prophylaxis VTE Prophylaxis Intervention: SCD's Lines/Catheters IV Catheter Type (from Nrsg): Saline Lock Urinary Cath still in place: No Assessment/Plan Chief Complaint/Hosp Course 61 yo M admitted for infected shoulder wound. Underwent several washouts with wound vac placement and replacement. Blood, wound, and operative cultures all grew out MSSA. TTE without clear evidence of IE. Per ortho given pt with large open wound and wound vac, 4+ weeks of systemic abx advised. Per ID ok to transition from IV Ceftriaxone to PO ciprofloxacin and discharge to SNF. Wound vac to stay in place and pt to follow up with ID and ortho to see if >4 weeks of abx are indicated. -cont current cares -pt on NRT for smoking hx Problems: Subjective 24 Hr Interval Summary Free Text/Dictation Pt laying in bed. I reminded him he can't smoke while he's in the hospital Exam/Review of Systems Vital Signs Vitals Vital Signs Date Time Temp Pulse Resp B/P Pulse Ox O2 Delivery O2 Flow Rate FiO2 01/02/17 08:01 98.4 67 18 124/69 97 12/29/16 17:54 Room Air 12/29/16 17:25 2.0 Intake and Output 01/01/17 01/01/17 01/02/17 14:59 22:59 06:59 Intake Total 1090 ml 500 ml Balance 1090 ml 500 ml Exam nad, laying in bed, wearing nicotine patch resp nonlabored no abd distension no edema no rashes Results Result Diagram: 01/01/17 0525 01/01/17 0525 Medications Medications Current Medications Acetaminophen (Tylenol Tab) 650 mg Q6H PRN PO PAIN LEVEL 1-3 OR FEVER; Start at 19:00 Acetaminophen/ Hydrocodone Bitart ([place] (5/325)) 1 tab Q6H PRN PO MODERATE PAIN LEVEL 4-6 Last administered on 01/02/17 03:05; Admin Dose 1 TAB; Start at 19:00 Acetaminophen/ Hydrocodone Bitart ([place] (5/325)) 2 tab Q6H PRN PO SEVERE PAIN LEVEL 7-10 Last administered on 12/20/16 09:01; Admin Dose 2 TAB; Start at 19:00 Enoxaparin Sodium (Lovenox) 40 mg DAILY SC Last administered on 12/22/16 09:21 ; Admin Dose 40 MG; Start 12/19/16 at 09:00; Status Future Hold Amlodipine Besylate (Norvasc) 10 mg DAILY PO Last administered on 01/02/17 09: 02; Admin Dose 10 MG; Start 12/19/16 at 09:00 Atorvastatin Calcium (Lipitor) 40 mg QHS PO Last administered on 01/01/17 21: 37; Admin Dose 40 MG; Start 12/18/16 at 21:00 Ferrous Sulfate (Ferrous Sulfate (Ec)) 325 mg BID PO Last administered on 09:01; Admin Dose 325 MG; Start 12/18/16 at 21:00 Metoprolol Tartrate (Lopressor) 50 mg BID PO Last administered on 01/02/17 09: 01; Admin Dose 50 MG; Start 12/18/16 at 21:00 Tramadol HCl (Ultram) 50 mg Q6H PRN PO PAIN Last administered on 12/25/16 23: 03; Admin Dose 50 MG; Start 12/18/16 at 19:00 Benazepril HCl (Lotensin) 40 mg DAILY PO Last administered on 01/02/17 09:01; Admin Dose 40 MG; Start 12/19/16 at 09:00 Nicotine (Nicoderm 21 Mg/ 24hr) 1 patch DAILY TRANSDERM Last administered on 09:01; Admin Dose 1 PATCH; Start 12/20/16 at 09:00 Nicotine Polacrilex (Nicorette) 2 mg Q2H PRN BUCCAL agitation; Start 12/20/16 at 09:30 Acetaminophen/ Hydrocodone Bitart ([place] (10/325)) 1 tab Q4H PRN GTB pain Last administered on 12/27/16 02:43; Admin Dose 1 TAB; Start 12/20/16 at 10:00 Morphine Sulfate 3 mg 3 mg Q3H PRN IV SEVERE PAIN LEVEL 7-10 Last administered on 01/02/17 12:07; Admin Dose 3 MG; Start 12/20/16 at 11:00 Ceftriaxone Sodium (Rocephin) 50 ml @ 100 mls/hr Q24H IVPB Last administered on 01/01/17 15:14; Admin Dose 100 MLS/HR; Start 12/21/16 at 15:00 Zolpidem Tartrate (Ambien) 10 mg HS PRN PO INSOMNIA Last administered on 02:07; Admin Dose 10 MG; Start 12/24/16 at 01:00 Miscellaneous Information (Pending Santyl Order For Wound Care) This patient curran... PRN PRN XX WOUND CARE; Start 12/29/16 at 17:30 DOROTHY BRYSON MD Jan 02, 2017 12:41
[2017-01-02] MEDS: CEFTRIAXONE 1 GM/50 ML (PMX) 50 ML IVPB SCH (15:10)
[2017-01-02 19:50] VITALS: BP 141/68; RESP 18
[2017-01-02] MEDS: ATORVASTATIN 40 MG TAB PO SCH (20:06)
[2017-01-02] MEDS: HYDROCODONE/APAP (10/325) TAB GTB PRN (20:08)
[2017-01-03] MEDS: morphine 4 MG/ML VIAL IV PRN ×3 (01:37→08:17)
[2017-01-03 02:01] VITALS: BP 140/66; RESP 16
[2017-01-03 07:53] VITALS: BP 130/72; RESP 18
[2017-01-03] MEDS: BENAZEPRIL 40 MG TAB PO SCH (09:07)
[2017-01-03] MEDS: AMLODIPINE 10 MG TAB PO SCH (09:07)
[2017-01-03] MEDS: NICOTINE (21 MG/24 HR) PATCH TRANSDERM SCH (09:07)
[2017-01-03] MEDS: FERROUS SULFATE (EC) 325 MG TAB PO SCH ×2 (09:07→20:27)
[2017-01-03] MEDS: METOPROLOL 50 MG TAB PO SCH ×2 (09:07→20:26)
--- NOTE | 2017-01-03 10:39 | PN ---
Date/Time of Note Date/Time of Note DATE: 01/03/17 TIME: 10:38 Assessment/Plan VTE Prophylaxis VTE Prophylaxis Intervention: SCD's Lines/Catheters IV Catheter Type (from Nrsg): Saline Lock Urinary Cath still in place: No Assessment/Plan Chief Complaint/Hosp Course 61 yo M admitted for infected shoulder wound. Underwent several washouts with wound vac placement and replacement. Blood, wound, and operative cultures all grew out MSSA. TTE without clear evidence of IE. Per ortho given pt with large open wound and wound vac, 4+ weeks of systemic abx advised. Per ID ok to transition from IV Ceftriaxone to PO ciprofloxacin and discharge to SNF. Wound vac to stay in place and pt to follow up with ID and ortho to see if >4 weeks of abx are indicated. -dc IV morphine, add PRN NSAIDs for synergy -pt on NRT for smoking hx Pt remains medically stable for discharge to a location where he can continue the wound vac Problems: Subjective 24 Hr Interval Summary Free Text/Dictation nurse pointed out to me that pt is getting IV morphine PRN in addition to PO pain meds Exam/Review of Systems Vital Signs Vitals Vital Signs Date Time Temp Pulse Resp B/P Pulse Ox O2 Delivery O2 Flow Rate FiO2 01/03/17 07:53 98.4 71 18 130/72 98 Intake and Output 01/02/17 01/02/17 01/03/17 15:00 23:00 07:00 Intake Total 1170 ml 1400 ml Output Total 12 ml Balance 1158 ml 1400 ml Exam nad wound vac site c/d/i lungs clear abd soft no rashes Results Result Diagram: 01/01/17 0525 01/01/17 0525 Medications Medications Current Medications Acetaminophen (Tylenol Tab) 650 mg Q6H PRN PO PAIN LEVEL 1-3 OR FEVER; Start at 19:00 Acetaminophen/ Hydrocodone Bitart ([place] (5/325)) 1 tab Q6H PRN PO MODERATE PAIN LEVEL 4-6 Last administered on 01/02/17 13:34; Admin Dose 1 TAB; Start at 19:00 Enoxaparin Sodium (Lovenox) 40 mg DAILY SC Last administered on 12/22/16 09:21 ; Admin Dose 40 MG; Start 12/19/16 at 09:00; Status Future Hold Amlodipine Besylate (Norvasc) 10 mg DAILY PO Last administered on 01/03/17 09: 07; Admin Dose 10 MG; Start 12/19/16 at 09:00 Atorvastatin Calcium (Lipitor) 40 mg QHS PO Last administered on 01/02/17 20: 06; Admin Dose 40 MG; Start 12/18/16 at 21:00 Ferrous Sulfate (Ferrous Sulfate (Ec)) 325 mg BID PO Last administered on 09:07; Admin Dose 325 MG; Start 12/18/16 at 21:00 Metoprolol Tartrate (Lopressor) 50 mg BID PO Last administered on 01/03/17 09: 07; Admin Dose 50 MG; Start 12/18/16 at 21:00 Tramadol HCl (Ultram) 50 mg Q6H PRN PO PAIN Last administered on 12/25/16 23: 03; Admin Dose 50 MG; Start 12/18/16 at 19:00 Benazepril HCl (Lotensin) 40 mg DAILY PO Last administered on 01/03/17 09:07; Admin Dose 40 MG; Start 12/19/16 at 09:00 Nicotine (Nicoderm 21 Mg/ 24hr) 1 patch DAILY TRANSDERM Last administered on 09:07; Admin Dose 1 PATCH; Start 12/20/16 at 09:00 Nicotine Polacrilex (Nicorette) 2 mg Q2H PRN BUCCAL agitation; Start 12/20/16 at 09:30 Acetaminophen/ Hydrocodone Bitart 1 tab 1 tab Q4H PRN GTB pain Last administered on 01/02/17 20:08; Admin Dose 1 TAB; Start 12/20/16 at 10:00 Ceftriaxone Sodium (Rocephin) 50 ml @ 100 mls/hr Q24H IVPB Last administered on 01/02/17 15:10; Admin Dose 100 MLS/HR; Start 12/21/16 at 15:00 Zolpidem Tartrate (Ambien) 10 mg HS PRN PO INSOMNIA Last administered on 02:07; Admin Dose 10 MG; Start 12/24/16 at 01:00 Miscellaneous Information (Pending Santyl Order For Wound Care) This patient curran... PRN PRN XX WOUND CARE; Start 12/29/16 at 17:30 Ibuprofen (Motrin) 600 mg Q8 PRN PO pain; Start 01/03/17 at 10:30 DOROTHY BRYSON MD Jan 03, 2017 10:39
[2017-01-03] MEDS: IBUPROFEN 600 MG TAB PO PRN (12:22)
[2017-01-03] MEDS: traMADol 50 MG TAB PO PRN ×2 (12:23→18:30)
[2017-01-03] MEDS: CEFTRIAXONE 1 GM/50 ML (PMX) 50 ML IVPB SCH (14:32)
[2017-01-03] MEDS: HYDROCODONE/APAP (5/325) TAB PO PRN ×2 (14:32→20:29)
[2017-01-03 14:43] VITALS: BP 129/68; RESP 19
[2017-01-03 19:33] VITALS: BP 128/60; RESP 18
[2017-01-03] MEDS: ATORVASTATIN 40 MG TAB PO SCH (20:26)
[2017-01-03] MEDS: ZOLPIDEM 5 MG TAB PO PRN (21:54)
[2017-01-04 02:00] VITALS: BP 114/62; RESP 18
[2017-01-04] MEDS: HYDROCODONE/APAP (5/325) TAB PO PRN ×4 (03:08→21:18)
[2017-01-04] MEDS: traMADol 50 MG TAB PO PRN ×3 (05:44→18:00)
[2017-01-04 07:51] VITALS: BP 113/63; RESP 18
[2017-01-04] MEDS: FERROUS SULFATE (EC) 325 MG TAB PO SCH ×2 (08:11→20:07)
[2017-01-04] MEDS: METOPROLOL 50 MG TAB PO SCH ×2 (08:12→20:07)
[2017-01-04] MEDS: AMLODIPINE 10 MG TAB PO SCH (08:12)
[2017-01-04] MEDS: BENAZEPRIL 40 MG TAB PO SCH (08:13)
[2017-01-04] MEDS: NICOTINE (21 MG/24 HR) PATCH TRANSDERM SCH (08:13)
[2017-01-04 13:49] VITALS: BP 109/72; RESP 18
--- NOTE | 2017-01-04 13:49 | PN ---
Date/Time of Note Date/Time of Note DATE: 01/04/17 TIME: 13:48 Assessment/Plan VTE Prophylaxis VTE Prophylaxis Intervention: SCD's Lines/Catheters IV Catheter Type (from Nrs): Saline Lock Urinary Cath still in place: No Assessment/Plan Chief Complaint/Hosp Course 61 yo M admitted for infected shoulder wound. Underwent several washouts with wound vac placement and replacement. Blood, wound, and operative cultures all grew out MSSA. TTE without clear evidence of IE. Per ortho given pt with large open wound and wound vac, 4+ weeks of systemic abx advised. Per ID ok to transition from IV Ceftriaxone to PO ciprofloxacin and discharge to SNF. Wound vac to stay in place and pt to follow up with ID and ortho to see if >4 weeks of abx are indicated. -cont PRN PO pain meds -pt on NRT for smoking hx Pt remains medically stable for discharge to a location where he can continue the wound vac Problems: Subjective 24 Hr Interval Summary Free Text/Dictation Sleeping Exam/Review of Systems Vital Signs Vitals Vital Signs Date Time Temp Pulse Resp B/P Pulse Ox O2 Delivery O2 Flow Rate FiO2 01/04/17 07:51 98.1 66 18 113/63 94 Intake and Output 01/03/17 01/03/17 01/04/17 15:00 23:00 07:00 Intake Total 1130 ml 300 ml Balance 1130 ml 300 ml Exam nad resp nonlabored no abd distension no rashes no edema Results Result Diagram: 01/01/1752401/01/17524 Medications Medications Current Medications Acetaminophen (Tylenol Tab) 650 mg Q6H PRN PO PAIN LEVEL 1-3 OR FEVER; Start at 19:00 Acetaminophen/ Hydrocodone Bitart ([place] (5/325)) 1 tab Q6H PRN PO MODERATE PAIN LEVEL 4-6 Last administered on 01/04/17 09:10; Admin Dose 1 TAB; Start at 19:00 Enoxaparin Sodium (Lovenox) 40 mg DAILY SC Last administered on 12/22/16 09:21 ; Admin Dose 40 MG; Start 12/19/16 at 09:00; Status Future Hold Amlodipine Besylate (Norvasc) 10 mg DAILY PO Last administered on 01/04/17 08: 12; Admin Dose 10 MG; Start 12/19/16 at 09:00 Atorvastatin Calcium (Lipitor) 40 mg QHS PO Last administered on 01/03/17 20: 26; Admin Dose 40 MG; Start 12/18/16 at 21:00 Ferrous Sulfate (Ferrous Sulfate (Ec)) 325 mg BID PO Last administered on 08:11; Admin Dose 325 MG; Start 12/18/16 at 21:00 Metoprolol Tartrate (Lopressor) 50 mg BID PO Last administered on 01/04/17 08: 12; Admin Dose 50 MG; Start 12/18/16 at 21:00 Tramadol HCl (Ultram) 50 mg Q6H PRN PO PAIN Last administered on 01/04/17 12: 03; Admin Dose 50 MG; Start 12/18/16 at 19:00 Benazepril HCl (Lotensin) 40 mg DAILY PO Last administered on 01/04/17 08:13; Admin Dose 40 MG; Start 12/19/16 at 09:00 Nicotine (Nicoderm 21 Mg/ 24hr) 1 patch DAILY TRANSDERM Last administered on 08:13; Admin Dose 1 PATCH; Start 12/20/16 at 09:00 Nicotine Polacrilex (Nicorette) 2 mg Q2H PRN BUCCAL agitation; Start 12/20/16 at 09:30 Acetaminophen/ Hydrocodone Bitart 1 tab 1 tab Q4H PRN GTB pain Last administered on 01/02/17 20:08; Admin Dose 1 TAB; Start 12/20/16 at 10:00 Ceftriaxone Sodium (Rocephin) 50 ml @ 100 mls/hr Q24H IVPB Last administered on 01/03/17 14:32; Admin Dose 100 MLS/HR; Start 12/21/16 at 15:00 Zolpidem Tartrate (Ambien) 10 mg HS PRN PO INSOMNIA Last administered on 21:54; Admin Dose 10 MG; Start 12/24/16 at 01:00 Miscellaneous Information (Pending Santyl Order For Wound Care) This patient curran... PRN PRN XX WOUND CARE; Start 12/29/16 at 17:30 Ibuprofen (Motrin) 600 mg Q8 PRN PO pain Last administered on 01/03/17 12:22; Admin Dose 600 MG; Start 01/03/17 at 10:30 DOROTHY BRYSON MD Jan 04, 2017 13:49
--- NOTE | 2017-01-04 14:32 | CONS ---
Date/Time of Note Date/Time of Note DATE: 01/04/17 TIME: 14:32 Assessment/Plan Assessment/Plan Chief Complaint/Hosp Course No acute changes, afebrile Abx: Rocephin Physical examination: well-nourished well-developed middle-aged man who is in no distress head atraumatic normocephalic sclerae anicteric neck is supple chest rise symmetrical breath sounds clear heart S1-S2 abdomen soft bowel sounds present extremities without cyanosis skin with right upper back wound to wound VAC Assessment: 1. Status post oxacillin sensitive staph aureus bacteremia secondary to #2 2. Right posterior shoulder infected wound, status post I&D with wound VAC application, status post arthrocentesis of right anterior shoulder 3. Hx B shoulder replacement Plan: Patient remains unchanged, continue abx. Anticipate discharge on oral ciprofloxacin for 4-6 weeks, f/u with ortho outpatient [facility] staff Problems: Consultation Date/Type/Reason Admit Date/Time Dec 18, 2016 at 17:39 Type of Consultation: id Exam/Review of Systems Vital Signs Vitals Vital Signs Date Time Temp Pulse Resp B/P Pulse Ox O2 Delivery O2 Flow Rate FiO2 01/04/17 13:49 98.5 69 18 109/72 99 Intake and Output 01/03/17 01/03/17 01/04/17 15:00 23:00 07:00 Intake Total 1130 ml 300 ml Balance 1130 ml 300 ml Results Result Diagram: 01/01/17 0525 01/01/17 0525 Medications Medications Current Medications Acetaminophen (Tylenol Tab) 650 mg Q6H PRN PO PAIN LEVEL 1-3 OR FEVER; Start at 19:00 Acetaminophen/ Hydrocodone Bitart ([place] (5/325)) 1 tab Q6H PRN PO MODERATE PAIN LEVEL 4-6 Last administered on 01/04/17 09:10; Admin Dose 1 TAB; Start at 19:00 Enoxaparin Sodium (Lovenox) 40 mg DAILY SC Last administered on 12/22/16 09:21 ; Admin Dose 40 MG; Start 12/19/16 at 09:00; Status Future Hold Amlodipine Besylate (Norvasc) 10 mg DAILY PO Last administered on 01/04/17 08: 12; Admin Dose 10 MG; Start 12/19/16 at 09:00 Atorvastatin Calcium (Lipitor) 40 mg QHS PO Last administered on 01/03/17 20: 26; Admin Dose 40 MG; Start 12/18/16 at 21:00 Ferrous Sulfate (Ferrous Sulfate (Ec)) 325 mg BID PO Last administered on 08:11; Admin Dose 325 MG; Start 12/18/16 at 21:00 Metoprolol Tartrate (Lopressor) 50 mg BID PO Last administered on 01/04/17 08: 12; Admin Dose 50 MG; Start 12/18/16 at 21:00 Tramadol HCl (Ultram) 50 mg Q6H PRN PO PAIN Last administered on 01/04/17 12: 03; Admin Dose 50 MG; Start 12/18/16 at 19:00 Benazepril HCl (Lotensin) 40 mg DAILY PO Last administered on 01/04/17 08:13; Admin Dose 40 MG; Start 12/19/16 at 09:00 Nicotine (Nicoderm 21 Mg/ 24hr) 1 patch DAILY TRANSDERM Last administered on 08:13; Admin Dose 1 PATCH; Start 12/20/16 at 09:00 Nicotine Polacrilex (Nicorette) 2 mg Q2H PRN BUCCAL agitation; Start 12/20/16 at 09:30 Acetaminophen/ Hydrocodone Bitart 1 tab 1 tab Q4H PRN GTB pain Last administered on 01/02/17 20:08; Admin Dose 1 TAB; Start 12/20/16 at 10:00 Ceftriaxone Sodium (Rocephin) 50 ml @ 100 mls/hr Q24H IVPB Last administered on 01/03/17 14:32; Admin Dose 100 MLS/HR; Start 12/21/16 at 15:00 Zolpidem Tartrate (Ambien) 10 mg HS PRN PO INSOMNIA Last administered on 21:54; Admin Dose 10 MG; Start 12/24/16 at 01:00 Miscellaneous Information (Pending [facility] Order For Wound Care) This patient curran... PRN PRN XX WOUND CARE; Start 12/29/16 at 17:30 Ibuprofen (Motrin) 600 mg Q8 PRN PO pain Last administered on 01/03/17 12:22; Admin Dose 600 MG; Start 10/7/17 at 10:30 MICHELE COUCH NP Jan 04, 2017 14:32
[2017-01-04] MEDS: CEFTRIAXONE 1 GM/50 ML (PMX) 50 ML IVPB SCH (15:04)
[2017-01-04 19:36] VITALS: BP 132/72; RESP 18
[2017-01-04] MEDS: ATORVASTATIN 40 MG TAB PO SCH (20:07)
[2017-01-04] MEDS: ZOLPIDEM 5 MG TAB PO PRN (21:18)
[2017-01-05] MEDS: traMADol 50 MG TAB PO PRN ×4 (00:25→21:16)
[2017-01-05 02:03] VITALS: BP 122/57; RESP 18
[2017-01-05] MEDS: HYDROCODONE/APAP (5/325) TAB PO PRN (03:06)
[2017-01-05 07:21] VITALS: BP 121/70; RESP 18
[2017-01-05] MEDS: FERROUS SULFATE (EC) 325 MG TAB PO SCH ×2 (08:32→20:15)
[2017-01-05] MEDS: AMLODIPINE 10 MG TAB PO SCH (08:32)
[2017-01-05] MEDS: METOPROLOL 50 MG TAB PO SCH ×2 (08:33→20:16)
[2017-01-05] MEDS: NICOTINE (21 MG/24 HR) PATCH TRANSDERM SCH (08:33)
[2017-01-05] MEDS: BENAZEPRIL 40 MG TAB PO SCH (08:33)
[2017-01-05] MEDS: HYDROCODONE/APAP (10/325) TAB GTB PRN ×4 (08:37→22:28)
--- NOTE | 2017-01-05 11:48 | PN ---
Date/Time of Note Date/Time of Note DATE: 01/05/17 TIME: 11:45 Assessment/Plan VTE Prophylaxis VTE Prophylaxis Intervention: SCD's Lines/Catheters IV Catheter Type (from Nrs): Saline Lock Urinary Cath still in place: No Assessment/Plan Chief Complaint/Hosp Course Assessment/Plan: 61 yo M admitted for infected shoulder wound, status post several washouts with wound vac placement and replacement this admission. 1. Infected shoulder wound: Blood, wound, and operative cultures all grew out MSSA. TTE without clear evidence of IE. - Per ortho given pt with large open wound and wound vac, 4+ weeks of systemic abx advised. - Per ID ok to transition from IV Ceftriaxone to PO ciprofloxacin and discharge to SNF. - Wound vac to stay in place and pt to follow up with ID and ortho to see if >4 weeks of abx are indicated. -cont PRN PO pain meds -pt on NRT for smoking hx Pt remains medically stable for discharge to a location where he can continue the wound vac-nurse outreach case manager actively looking for placement, although will be difficult because of patient's homelessness Problems: Subjective 24 Hr Interval Summary Free Text/Dictation No acute events overnight. Exam/Review of Systems Vital Signs Vitals Vital Signs Date Time Temp Pulse Resp B/P Pulse Ox O2 Delivery O2 Flow Rate FiO2 01/05/17 07:21 98.7 68 18 121/70 97 Intake and Output 01/04/17 01/04/17 01/05/17 15:00 23:00 07:00 Intake Total 1290 ml 1400 ml Output Total 0 ml 0 ml Balance 1290 ml 1400 ml Exam nad, sleeping resp nonlabored S1, S2 heard no abd distension no edema Results Result Diagram: 01/01/17 0525 01/01/17 0525 Medications Medications Current Medications Acetaminophen (Tylenol Tab) 650 mg Q6H PRN PO PAIN LEVEL 1-3 OR FEVER; Start at 19:00 Acetaminophen/ Hydrocodone Bitart ([place] (5/325)) 1 tab Q6H PRN PO MODERATE PAIN LEVEL 4-6 Last administered on 01/05/17 03:06; Admin Dose 1 TAB; Start at 19:00 Enoxaparin Sodium (Lovenox) 40 mg DAILY SC Last administered on 12/22/16 09:21 ; Admin Dose 40 MG; Start 12/19/16 at 09:00; Status Future Hold Amlodipine Besylate (Norvasc) 10 mg DAILY PO Last administered on 01/05/17 08: 32; Admin Dose 10 MG; Start 12/19/16 at 09:00 Atorvastatin Calcium (Lipitor) 40 mg QHS PO Last administered on 01/04/17 20: 07; Admin Dose 40 MG; Start 12/18/16 at 21:00 Ferrous Sulfate (Ferrous Sulfate (Ec)) 325 mg BID PO Last administered on 08:32; Admin Dose 325 MG; Start 12/18/16 at 21:00 Metoprolol Tartrate (Lopressor) 50 mg BID PO Last administered on 01/05/17 08: 33; Admin Dose 50 MG; Start 12/18/16 at 21:00 Tramadol HCl (Ultram) 50 mg Q6H PRN PO PAIN Last administered on 01/05/17 06: 54; Admin Dose 50 MG; Start 12/18/16 at 19:00 Benazepril HCl (Lotensin) 40 mg DAILY PO Last administered on 01/05/17 08:33; Admin Dose 40 MG; Start 12/19/16 at 09:00 Nicotine (Nicoderm 21 Mg/ 24hr) 1 patch DAILY TRANSDERM Last administered on 08:13; Admin Dose 1 PATCH; Start 12/20/16 at 09:00 Nicotine Polacrilex (Nicorette) 2 mg Q2H PRN BUCCAL agitation; Start 12/20/16 at 09:30 Acetaminophen/ Hydrocodone Bitart 1 tab 1 tab Q4H PRN GTB pain Last administered on 01/05/17 08:37; Admin Dose 1 TAB; Start 12/20/16 at 10:00 Ceftriaxone Sodium (Rocephin) 50 ml @ 100 mls/hr Q24H IVPB Last administered on 01/04/17 15:04; Admin Dose 100 MLS/HR; Start 12/21/16 at 15:00 Zolpidem Tartrate (Ambien) 10 mg HS PRN PO INSOMNIA Last administered on 21:18; Admin Dose 10 MG; Start 12/24/16 at 01:00 Miscellaneous Information (Pending [facility] Order For Wound Care) This patient curran... PRN PRN XX WOUND CARE; Start 12/29/16 at 17:30 Ibuprofen (Motrin) 600 mg Q8 PRN PO pain Last administered on 01/03/17t 12:22; Admin Dose 600 MG; Start 01/03/17 at 10:30 ANDRES TRAN Jan 05, 2017 11:48
[2017-01-05 14:47] VITALS: BP 91/56; RESP 18
[2017-01-05] MEDS: CEFTRIAXONE 1 GM/50 ML (PMX) 50 ML IVPB SCH (15:07)
[2017-01-05 19:33] VITALS: BP 117/66; RESP 18
[2017-01-05] MEDS: ATORVASTATIN 40 MG TAB PO SCH (20:15)
[2017-01-05] MEDS: ZOLPIDEM 5 MG TAB PO PRN (22:28)
[2017-01-06 01:49] VITALS: BP 105/61; RESP 18
[2017-01-06] MEDS: HYDROCODONE/APAP (10/325) TAB GTB PRN ×2 (03:45→09:04)
[2017-01-06] MEDS: traMADol 50 MG TAB PO PRN (06:30)
[2017-01-06 07:56] VITALS: BP 125/64; RESP 18
[2017-01-06] MEDS: AMLODIPINE 10 MG TAB PO SCH (09:03)
[2017-01-06] MEDS: BENAZEPRIL 40 MG TAB PO SCH (09:03)
[2017-01-06] MEDS: METOPROLOL 50 MG TAB PO SCH ×2 (09:04→20:37)
[2017-01-06] MEDS: FERROUS SULFATE (EC) 325 MG TAB PO SCH ×2 (09:04→20:37)
[2017-01-06] MEDS: NICOTINE (21 MG/24 HR) PATCH TRANSDERM SCH (09:05)
--- NOTE | 2017-01-06 11:05 | PN ---
Date/Time of Note Date/Time of Note DATE: 01/06/17 TIME: 11:03 Assessment/Plan VTE Prophylaxis VTE Prophylaxis Intervention: SCD's Lines/Catheters IV Catheter Type (from Nrsg): Saline Lock Urinary Cath still in place: No Assessment/Plan Chief Complaint/Hosp Course Assessment/Plan: 61 yo M admitted for infected shoulder wound, status post several washouts with wound vac placement and replacement this admission. 1. Infected shoulder wound: Blood, wound, and operative cultures all grew out MSSA. TTE without clear evidence of IE. - Per ortho given pt with large open wound and wound vac, 4+ weeks of systemic abx advised. - Per ID ok to transition from IV Ceftriaxone to PO ciprofloxacin and discharge to SNF-case management is actively working on placement - Wound vac to stay in place and pt to follow up with ID and ortho to see if >4 weeks of abx are indicated. -cont PRN PO pain meds -Counseled on cessation for smoking hx Pt remains medically stable for discharge to a location where he can continue the wound vac-case picker actively looking for placement, although will be difficult because of patient's homelessness Problems: Subjective 24 Hr Interval Summary Free Text/Dictation Per nursing staff, patient refused wound VAC placement this morning. Exam/Review of Systems Vital Signs Vitals Vital Signs Date Time Temp Pulse Resp B/P Pulse Ox O2 Delivery O2 Flow Rate FiO2 01/06/17 07:56 98.2 64 18 125/64 98 Intake and Output 01/05/17 01/05/17 01/06/17 15:00 23:00 07:00 Intake Total 1730 ml 800 ml Balance 1730 ml 800 ml Exam Lying in bed, no acute distress resp nonlabored S1, S2 heard no abd distension no edema Medications Medications Current Medications Acetaminophen (Tylenol Tab) 650 mg Q6H PRN PO PAIN LEVEL 1-3 OR FEVER; Start at 19:00 Acetaminophen/ Hydrocodone Bitart ([place] (5/325)) 1 tab Q6H PRN PO MODERATE PAIN LEVEL 4-6 Last administered on 01/05/17 03:06; Admin Dose 1 TAB; Start at 19:00 Enoxaparin Sodium (Lovenox) 40 mg DAILY SC Last administered on 12/22/16 09:21 ; Admin Dose 40 MG; Start 12/19/16 at 09:00; Status Future Hold Amlodipine Besylate (Norvasc) 10 mg DAILY PO Last administered on 01/06/17 09 :03; Admin Dose 10 MG; Start 12/19/16 at 09:00 Atorvastatin Calcium (Lipitor) 40 mg QHS PO Last administered on 01/05/17 20: 15; Admin Dose 40 MG; Start 12/18/16 at 21:00 Ferrous Sulfate (Ferrous Sulfate (Ec)) 325 mg BID PO Last administered on 01/06 09:04; Admin Dose 325 MG; Start 12/18/16 at 21:00 Metoprolol Tartrate (Lopressor) 50 mg BID PO Last administered on 01/06/17 09 :04; Admin Dose 50 MG; Start 12/18/16 at 21:00 Tramadol HCl (Ultram) 50 mg Q6H PRN PO PAIN Last administered on 01/06/17 06: 30; Admin Dose 50 MG; Start 12/18/16 at 19:00 Benazepril HCl (Lotensin) 40 mg DAILY PO Last administered on 01/06/17 09:03 ; Admin Dose 40 MG; Start 12/19/16 at 09:00 Nicotine (Nicoderm 21 Mg/ 24hr) 1 patch DAILY TRANSDERM Last administered on 09:05; Admin Dose 1 PATCH; Start 12/20/16 at 09:00 Nicotine Polacrilex (Nicorette) 2 mg Q2H PRN BUCCAL agitation; Start 12/20/16 at 09:30 Acetaminophen/ Hydrocodone Bitart 1 tab 1 tab Q4H PRN GTB pain Last administered on 01/06/17 09:04; Admin Dose 1 TAB; Start 12/20/16 at 10:00 Ceftriaxone Sodium (Rocephin) 50 ml @ 100 mls/hr Q24H IVPB Last administered on 01/05/17 15:07; Admin Dose 100 MLS/HR; Start 12/21/16 at 15:00 Zolpidem Tartrate (Ambien) 10 mg HS PRN PO INSOMNIA Last administered on 22:28; Admin Dose 10 MG; Start 12/24/16 at 01:00 Miscellaneous Information (Pending [facility] Order For Wound Care) This patient curran... PRN PRN XX WOUND CARE; Start 12/29/16 at 17:30 Ibuprofen (Motrin) 600 mg Q8 PRN PO pain Last administered on 01/03/17t 12:22; Admin Dose 600 MG; Start 01/03/17 at 10:30 ANDRES TRAN Jan 06, 2017 11:05
[2017-01-06] MEDS: OXYCODONE/ACETAMINOPHEN (10/325) TAB PO PRN ×3 (12:11→20:37)
[2017-01-06 14:01] VITALS: BP 112/62; RESP 18
[2017-01-06] MEDS: CEFTRIAXONE 1 GM/50 ML (PMX) 50 ML IVPB SCH (15:46)
[2017-01-06] MEDS: COLLAGENASE 30 GM TUBE TOP SCH (15:46)
[2017-01-06] MEDS: ALPRAZOLAM 0.25 MG TAB PO PRN (18:06)
[2017-01-06 20:00] VITALS: BP 126/58; RESP 18
[2017-01-06] MEDS: ATORVASTATIN 40 MG TAB PO SCH (20:37)
--- NOTE | 2017-01-06 20:38 | PN ---
Date/Time of Note Date/Time of Note DATE: 01/06/17 TIME: 20:29 Assessment/Plan VTE Prophylaxis VTE Prophylaxis Intervention: ambulation Lines/Catheters IV Catheter Type (from [facility] [place] Saline Lock Urinary Cath still in place: No Assessment/Plan Assessment/Plan Although I have signed the order for the new wound care plan without the wound vac, I will state very clearly here as I did to the patient, that this remains against medical advise. The wound vac created a sterile environment for the wound, that was very virulent and took multiple washouts to achieve control over. Furthermore, on account of the patient's noncompliance, he has not demonstrated the ability to care for any type of wound. The wound vac required changing three times per week; now his standard dressing will require daily changes, greater than doubling the attention needed for the wound. He has high risk of recurrence. By literally tricking the wound care nurse into removing the sponge and then not allowing it to be replaced, he has created less than optimal climate for continued wound healing, and the risk of recurrence and all the risk of return or worsening of the infection and eventually seeding into his joint with his prosthesis will remain a possible sequelae of his noncompliance. He expressed regret to me regarding his decision, but the wound has been open for too long and is therefore colonized at the very least, so we can't put the wound vac back on without at least one more trip to the operating room to recreate a sterile environment. Therefore, we will continue with dressing changed without the wound vac. Subjective 24 Hr Interval Summary Free Text/Dictation Patient complaining of pain ever since IV pain meds were discontinued. He tricked the wound care nurse into removing the sponge, but after she did so, he refused to allow her to replace it. He has been caught smoking in the bathroom as well. Exam/Review of Systems Vital Signs Vitals Vital Signs Date Time Temp Pulse Resp B/P Pulse Ox O2 Delivery O2 Flow Rate FiO2 01/06/17 14:01 98.8 65 18 112/62 98 Intake and Output 01/05/17 01/05/17 01/06/17 15:00 23:00 07:00 Intake Total 1730 ml 800 ml Balance 1730 ml 800 ml Exam Dressing c/d/i. No signs of infection, NVI, ROM per baseline Medications Medications Current Medications Acetaminophen (Tylenol Tab) 650 mg Q6H PRN PO PAIN LEVEL 1-3 OR FEVER; Start at 19:00 Enoxaparin Sodium (Lovenox) 40 mg DAILY SC Last administered on 12/22/16 09:21 ; Admin Dose 40 MG; Start 12/19/16 at 09:00; Status Future Hold Amlodipine Besylate (Norvasc) 10 mg DAILY PO Last administered on 01/06/17 09 :03; Admin Dose 10 MG; Start 12/19/16 at 09:00 Atorvastatin Calcium (Lipitor) 40 mg QHS PO Last administered on 01/05/17 20: 15; Admin Dose 40 MG; Start 12/18/16 at 21:00 Ferrous Sulfate (Ferrous Sulfate (Ec)) 325 mg BID PO Last administered on 01/06 09:04; Admin Dose 325 MG; Start 12/18/16 at 21:00 Metoprolol Tartrate (Lopressor) 50 mg BID PO Last administered on 01/06/17 09 :04; Admin Dose 50 MG; Start 12/18/16 at 21:00 Benazepril HCl (Lotensin) 40 mg DAILY PO Last administered on 01/06/17 09:03 ; Admin Dose 40 MG; Start 12/19/16 at 09:00 Nicotine (Nicoderm 21 Mg/ 24hr) 1 patch DAILY TRANSDERM Last administered on 09:05; Admin Dose 1 PATCH; Start 12/20/16 at 09:00 Nicotine Polacrilex 2 mg 2 mg Q2H PRN BUCCAL agitation; Start 12/20/16 at 09:30 Ceftriaxone Sodium (Rocephin) 50 ml @ 100 mls/hr Q24H IVPB Last administered on 01/06/17 15:46; Admin Dose 100 MLS/HR; Start 12/21/16 at 15:00 Zolpidem Tartrate (Ambien) 10 mg HS PRN PO INSOMNIA Last administered on 22:28; Admin Dose 10 MG; Start 12/24/16 at 01:00 Miscellaneous Information (Pending Santyl Order For Wound Care) This patient curran... PRN PRN XX WOUND CARE; Start 12/29/16 at 17:30 Ibuprofen (Motrin) 600 mg Q8 PRN PO pain Last administered on 01/03/17 12:22; Admin Dose 600 MG; Start 01/03/17 at 10:30 Collagenase (Santyl) 1 applic DAILY TOP Last administered on 01/06/17 15:46; Admin Dose 1 APPLIC; Start 01/06/17 at 12:00 Oxycodone/ Acetaminophen (Endocet ()) 1 tab Q4H PRN PO PAIN Last administered on 01/06/17 16:29; Admin Dose 1 TAB; Start 01/06/17 at 12:00 Alprazolam (Xanax) 0.25 mg Q6H PRN PO ANXIETY Last administered on 01/06/17 18:06; Admin Dose 0.25 MG; Start 01/06/17 at 17:30 SARANYA JONES MD Jan 06, 2017 20:38
[2017-01-06] MEDS: ZOLPIDEM 5 MG TAB PO PRN (22:42)
[2017-01-07] MEDS: OXYCODONE/ACETAMINOPHEN (10/325) TAB PO PRN ×5 (00:29→18:47)
[2017-01-07 02:30] VITALS: BP 135/65; RESP 18
[2017-01-07] MEDS: ALPRAZOLAM 0.25 MG TAB PO PRN ×3 (06:11→20:17)
[2017-01-07 08:08] VITALS: BP 144/68; RESP 18
[2017-01-07] MEDS: COLLAGENASE 30 GM TUBE TOP SCH (08:55)
[2017-01-07] MEDS: FERROUS SULFATE (EC) 325 MG TAB PO SCH ×2 (09:14→20:15)
[2017-01-07] MEDS: AMLODIPINE 10 MG TAB PO SCH (09:14)
[2017-01-07] MEDS: METOPROLOL 50 MG TAB PO SCH ×2 (09:14→21:00)
[2017-01-07] MEDS: BENAZEPRIL 40 MG TAB PO SCH (09:15)
[2017-01-07] MEDS: NICOTINE (21 MG/24 HR) PATCH TRANSDERM SCH (09:16)
--- NOTE | 2017-01-07 12:07 | PN ---
Date/Time of Note Date/Time of Note DATE: 01/07/17 TIME: 12:01 Assessment/Plan VTE Prophylaxis VTE Prophylaxis Intervention: SCD's Lines/Catheters IV Catheter Type (from Nrs): Saline Lock Urinary Cath still in place: No Assessment/Plan Chief Complaint/Hosp Course Assessment/Plan: 61 yo M admitted for infected shoulder wound, status post several washouts with wound vac placement and replacement this admission. 1. Infected shoulder wound: Blood, wound, and operative cultures all grew out MSSA. TTE without clear evidence of IE. - Per ortho given pt with large open wound and wound vac, 4+ weeks of systemic abx advised, however wound VAC is now out of place now and orthopedics is recommending at a minimum daily care dressing changes. We are trying to have case management set up outpatient follow-up at the wound care clinic ideally daily, they are actively working on this. - Per ID ok to transition from IV Ceftriaxone to PO ciprofloxacin will need this antibiotic for a minimum of 4 weeks, and discharge home once wound care follow-up appointments have been set up -cont PRN PO pain meds -Counseled on cessation for smoking hx Problems: Subjective 24 Hr Interval Summary Free Text/Dictation No acute events overnight, still without wound VAC at this point. Seen by wound care nurse yesterday as well as orthopedic surgery team. Exam/Review of Systems Vital Signs Vitals Vital Signs Date Time Temp Pulse Resp B/P Pulse Ox O2 Delivery O2 Flow Rate FiO2 01/07/17 08:08 97.5 67 18 144/68 92 Intake and Output 01/06/17 01/06/17 01/07/17 15:00 23:00 07:00 Intake Total 1410 ml 1200 ml Balance 1410 ml 1200 ml Exam Lying in bed, no acute distress resp nonlabored S1, S2 heard no abd distension no edema Medications Medications Current Medications Acetaminophen (Tylenol Tab) 650 mg Q6H PRN PO PAIN LEVEL 1-3 OR FEVER; Start at 19:00 Enoxaparin Sodium (Lovenox) 40 mg DAILY SC Last administered on 12/22/16 09:21 ; Admin Dose 40 MG; Start 12/19/16 at 09:00; Status Future Hold Amlodipine Besylate (Norvasc) 10 mg DAILY PO Last administered on 01/07/17 09 :14; Admin Dose 10 MG; Start 12/19/16 at 09:00 Atorvastatin Calcium (Lipitor) 40 mg QHS PO Last administered on 01/06/17 20: 37; Admin Dose 40 MG; Start 12/18/16 at 21:00 Ferrous Sulfate (Ferrous Sulfate (Ec)) 325 mg BID PO Last administered on 01/07 09:14; Admin Dose 325 MG; Start 12/18/16 at 21:00 Metoprolol Tartrate (Lopressor) 50 mg BID PO Last administered on 01/07/17 09 :14; Admin Dose 50 MG; Start 12/18/16 at 21:00 Benazepril HCl (Lotensin) 40 mg DAILY PO Last administered on 01/07/17 09:15 ; Admin Dose 40 MG; Start 12/19/16 at 09:00 Nicotine (Nicoderm 21 Mg/ 24hr) 1 patch DAILY TRANSDERM Last administered on 09:16; Admin Dose 1 PATCH; Start 12/20/16 at 09:00 Nicotine Polacrilex 2 mg 2 mg Q2H PRN BUCCAL agitation; Start 12/20/16 at 09:30 Ceftriaxone Sodium (Rocephin) 50 ml @ 100 mls/hr Q24H IVPB Last administered on 01/06/17 15:46; Admin Dose 100 MLS/HR; Start 12/21/16 at 15:00 Zolpidem Tartrate (Ambien) 10 mg HS PRN PO INSOMNIA Last administered on 22:42; Admin Dose 10 MG; Start 12/24/16 at 01:00 Miscellaneous Information (Pending Santyl Order For Wound Care) This patient curran... PRN PRN XX WOUND CARE; Start 12/29/16 at 17:30 Ibuprofen (Motrin) 600 mg Q8 PRN PO pain Last administered on 01/03/17 12:22; Admin Dose 600 MG; Start 01/03/17 at 10:30 Collagenase (Santyl) 1 applic DAILY TOP Last administered on 01/07/17 08:55; Admin Dose 1 APPLIC; Start 01/06/17 at 12:00 Oxycodone/ Acetaminophen (Endocet (10/ 325)) 1 tab Q4H PRN PO PAIN Last administered on 01/07/17 10:00; Admin Dose 1 TAB; Start 01/06/17 at 12:00 Alprazolam (Xanax) 0.25 mg Q6H PRN PO ANXIETY Last administered on 01/07/17t 06:11; Admin Dose 0.25 MG; Start 01/06/17 at 17:30 ANDRES TRAN Jan 07, 2017 12:07
[2017-01-07] MEDS: CEFTRIAXONE 1 GM/50 ML (PMX) 50 ML IVPB SCH (14:08)
[2017-01-07] MEDS: IBUPROFEN 600 MG TAB PO PRN (14:08)
[2017-01-07 14:58] VITALS: BP 97/53; RESP 18
[2017-01-07] MEDS: ATORVASTATIN 40 MG TAB PO SCH (20:15)
[2017-01-07 20:30] VITALS: BP 100/56; RESP 20
[2017-01-07] MEDS: ZOLPIDEM 5 MG TAB PO PRN (22:04)
[2017-01-08] MEDS: OXYCODONE/ACETAMINOPHEN (10/325) TAB PO PRN ×6 (00:53→23:56)
[2017-01-08 02:00] VITALS: BP 122/62; RESP 18
[2017-01-08 08:10] VITALS: BP 129/74; RESP 20
[2017-01-08] MEDS: FERROUS SULFATE (EC) 325 MG TAB PO SCH ×2 (08:45→19:43)
[2017-01-08] MEDS: AMLODIPINE 10 MG TAB PO SCH (08:46)
[2017-01-08] MEDS: BENAZEPRIL 40 MG TAB PO SCH (08:46)
[2017-01-08] MEDS: METOPROLOL 50 MG TAB PO SCH ×2 (08:46→19:44)
[2017-01-08] MEDS: COLLAGENASE 30 GM TUBE TOP SCH ×2 (08:46→13:20)
[2017-01-08] MEDS: NICOTINE (21 MG/24 HR) PATCH TRANSDERM SCH (08:47)
[2017-01-08] MEDS: ALPRAZOLAM 0.25 MG TAB PO PRN ×2 (08:47→16:44)
--- NOTE | 2017-01-08 11:27 | PN ---
Date/Time of Note Date/Time of Note DATE: 01/08/17 TIME: 11:25 Assessment/Plan VTE Prophylaxis VTE Prophylaxis Intervention: SCD's Lines/Catheters IV Catheter Type (from Nrs): Saline Lock Urinary Cath still in place: No Assessment/Plan Chief Complaint/Hosp Course Assessment/Plan: 61 yo M admitted for infected shoulder wound, status post several washouts with wound vac placement and replacement this admission. 1. Infected shoulder wound: Blood, wound, and operative cultures all grew out MSSA. TTE without clear evidence of IE. - Per ortho given pt with large open wound and wound vac, 4+ weeks of systemic abx advised, however wound VAC is now out of and orthopedics is recommending at a minimum daily care dressing changes. We are trying to have case management set up outpatient follow-up at the wound care clinic ideally daily, they are actively working on this. - Per ID ok to transition from IV Ceftriaxone to PO ciprofloxacin will need this antibiotic for a minimum of 4 weeks, and discharge home once wound care follow-up appointments have been set up -cont PRN PO pain meds -Counseled on cessation for smoking hx Problems: Subjective 24 Hr Interval Summary Free Text/Dictation No acute events overnight. Exam/Review of Systems Vital Signs Vitals Vital Signs Date Time Temp Pulse Resp B/P Pulse Ox O2 Delivery O2 Flow Rate FiO2 01/08/17 08:10 98.7 88 20 129/74 96 Intake and Output 01/07/17 01/07/17 01/08/17 15:00 23:00 07:00 Intake Total 50 ml 720 ml 960 ml Balance 50 ml 720 ml 960 ml Exam Lying in bed, no acute distress resp nonlabored S1, S2 heard no abd distension no edema Medications Medications Current Medications Acetaminophen (Tylenol Tab) 650 mg Q6H PRN PO PAIN LEVEL 1-3 OR FEVER; Start at 19:00 Enoxaparin Sodium (Lovenox) 40 mg DAILY SC Last administered on 12/22/16 09:21 ; Admin Dose 40 MG; Start 12/19/16 at 09:00; Status Future Hold Amlodipine Besylate (Norvasc) 10 mg DAILY PO Last administered on 01/08/17 08 :46; Admin Dose 10 MG; Start 12/19/16 at 09:00 Atorvastatin Calcium (Lipitor) 40 mg QHS PO Last administered on 01/07/17 20: 15; Admin Dose 40 MG; Start 12/18/16 at 21:00 Ferrous Sulfate (Ferrous Sulfate (Ec)) 325 mg BID PO Last administered on 01/08 08:45; Admin Dose 325 MG; Start 12/18/16 at 21:00 Metoprolol Tartrate (Lopressor) 50 mg BID PO Last administered on 01/08/17 08 :46; Admin Dose 50 MG; Start 12/18/16 at 21:00 Benazepril HCl (Lotensin) 40 mg DAILY PO Last administered on 01/08/17 08:46 ; Admin Dose 40 MG; Start 12/19/16 at 09:00 Nicotine (Nicoderm 21 Mg/ 24hr) 1 patch DAILY TRANSDERM Last administered on 08:47; Admin Dose 1 PATCH; Start 12/20/16 at 09:00 Nicotine Polacrilex 2 mg 2 mg Q2H PRN BUCCAL agitation; Start 12/20/16 at 09:30 Ceftriaxone Sodium (Rocephin) 50 ml @ 100 mls/hr Q24H IVPB Last administered on 01/07/17 14:08; Admin Dose 100 MLS/HR; Start 12/21/16 at 15:00 Zolpidem Tartrate (Ambien) 10 mg HS PRN PO INSOMNIA Last administered on 22:04; Admin Dose 10 MG; Start 12/24/16 at 01:00 Miscellaneous Information (Pending Santyl Order For Wound Care) This patient curran... PRN PRN XX WOUND CARE; Start 12/29/16 at 17:30 Ibuprofen (Motrin) 600 mg Q8 PRN PO pain Last administered on 01/07/17 14:08 ; Admin Dose 600 MG; Start 01/03/17 at 10:30 Collagenase (Santyl) 1 applic DAILY TOP Last administered on 01/07/17 08:55; Admin Dose 1 APPLIC; Start 01/06/17 at 12:00 Oxycodone/ Acetaminophen (Endocet (10 325)) 1 tab Q4H PRN PO PAIN Last administered on 01/08/17 10:31; Admin Dose 1 TAB; Start 01/06/17 at 12:00 Alprazolam (Xanax) 0.25 mg Q6H PRN PO ANXIETY Last administered on 01/08/17 08:47; Admin Dose 0.25 MG; Start 01/06/17 at 17:30 ANDRES TRAN Jan 08, 2017 11:27
[2017-01-08 13:54] VITALS: BP 100/58; RESP 17
[2017-01-08] MEDS: CEFTRIAXONE 1 GM/50 ML (PMX) 50 ML IVPB SCH (15:20)
[2017-01-08 19:26] VITALS: BP 111/73; RESP 20
[2017-01-08] MEDS: ATORVASTATIN 40 MG TAB PO SCH (19:44)
[2017-01-09 01:41] VITALS: BP 113/56; RESP 20
[2017-01-09] MEDS: OXYCODONE/ACETAMINOPHEN (10/325) TAB PO PRN ×2 (05:17→10:02)
[2017-01-09] MEDS: ALPRAZOLAM 0.25 MG TAB PO PRN (06:49)
[2017-01-09 07:22] VITALS: BP 120/59; RESP 20
--- NOTE | 2017-01-09 09:43 | PDOCDIS ---
Discharge Instructions DIAGNOSIS Discharge Diagnosis MSSA bacteremia 2/2 R posterior shoulder wound infection CONDITION Patient Condition: Stable HOME CARE INSTRUCTIONS: Special Diet: REGULAR ACTIVITY: Activity Restrictions: Slowly Increase Activity FOLLOW UP/APPOINTMENTS Follow-up Plan Please take your medications as prescribed, especially your antibiotics. Please follow-up at the wound care center with your scheduled appointments. Follow-up with doctors in the clinic orthopedics and infectious disease please take your medications as prescribed, especially her antibiotics. Please follow- up very strictly with your wound care in their clinic within 1-[address] Casillas Office Address [address] [place] [address] Moore Office Address [address] [place] [address] Office ANDRES TRAN Jan 09, 2017 09:42
[2017-01-09] MEDS ORDERED: NICO1PAT6 TRANSDERM (09:45)
[2017-01-09] MEDS ORDERED: [UNRECOGNIZED DRUG - CODE] BUCCAL (09:45)
[2017-01-09] MEDS ORDERED: SAN30GM TOP (09:45)
[2017-01-09] MEDS: FERROUS SULFATE (EC) 325 MG TAB PO SCH (10:02)
[2017-01-09] MEDS: BENAZEPRIL 40 MG TAB PO SCH (10:03)
[2017-01-09] MEDS: COLLAGENASE 30 GM TUBE TOP SCH (10:04)
[2017-01-09] MEDS: AMLODIPINE 10 MG TAB PO SCH (10:04)
[2017-01-09] MEDS: NICOTINE (21 MG/24 HR) PATCH TRANSDERM SCH (10:05)
[2017-01-09] MEDS: METOPROLOL 50 MG TAB PO SCH (10:06)
--- NOTE | 2017-01-09 10:39 | DS ---
DATE OF ADMISSION: 12/18/2016 DATE OF DISCHARGE: 01/09/2017 HISTORY OF PRESENT ILLNESS: This is a 61-year-old male, originally admitted on 12/18/2016, being discharged home on 01/09/2017. The patient came in with an infected right shoulder wound. He was seen by Orthopedic surgery team during this hospital stay. He had several washout procedures and I and D procedures performed and also required wound VAC placement regarding an infected shoulder wound during this admission. His blood and wound cultures grew out MSSA. His echocardiogram, however, did not show any signs of an endocarditis. In any event, he was placed on appropriate antibiotics for that over the course of his hospital stay. His leukocytosis resolved. He was getting wound care as well during this hospital stay and again, he had multiple washouts by Orthopedic Surgery team to achieve good control over his wound infection. His wound was healing well. However, the Orthopedic surgery and nursing care team was monitoring his wound very carefully as the patient does have a history of noncompliance and at times was asking to go down and smoke cigarettes and even 1 time was caught in the bathroom smoking, which is against hospital policy. He is given Nicorette gum and nicotine patch as well to help control this. In any event, his wound symptoms did slowly improve eventually. The wound VAC was removed 2 days prior to discharge. The patient's vital signs are stable. He is ambulating, tolerating a p.o. diet. His labs are stable today and he will be discharged home today with home health nursing and wound care nursing as well and in improved condition. He will also have appointment set up at the Wound Care Clinic to continue care for this right shoulder infection. He will also get antibiotics for 1 month. DISCHARGE MEDICATIONS: He will be discharged home with the following medication: 1. Santyl applied topically daily. 2. Nicorette gum 2 mg p.o. q.2 hours p.r.n. 3. Nicotine patch 21 mg transdermal daily. 4. Amlodipine 10 mg daily. 5. Atorvastatin 40 mg at bedtime. 6. Ferrous sulfate 325 mg b.i.d. 7. Percocet 10/325 one tablet p.o. q.6h p.r.n. 8. Lopressor 50 mg b.i.d. 9. Quinapril 40 mg daily. 10. Tramadol 50 mg q.6 hours p.r.n. 11. Cipro 500 mg p.o. b.i.d. for 1 month. 12. Xanax 0.25 mg p.o. q.8 hours p.r.n. FOLLOWUP: Again, he will follow up with wound care nurse in the wound care center, likely will be daily for the next couple of weeks. Then follow up with Orthopedic Surgery team in the clinic in next 1 to 2 weeks and primary care doctor in the clinic in next 1 to 2 weeks. FINAL DIAGNOSES: 1. Right infected shoulder wound status post multiple washout procedures performed by Orthopedic surgery team with positive blood and wound cultures for Methicillin sensitive staphylococcus aureus, now improving. 2. History of hypertension. 3. High cholesterol. 4. 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 5. History of smoking, counseled on cessation. 6. History of . TIME SPENT DISCHARGING PATIENT: 55 minutes. Dictated By: Umair Nolasco MD /thomas/melania /Document#: [id number]
[2017-01-09] MEDS: CEFTRIAXONE 1 GM/50 ML (PMX) 50 ML IVPB SCH (11:42)
[2017-01-09 14:08] VITALS: BP 120/58; RESP 20
== END 2017-01-09 15:28 | disposition home health service (06) | DRG 857 ==
LOC: E/R 14:22 → MS2 17:39
PROVIDERS: ADMIT Internal Medicine; ATTEND Internal Medicine
PROC: 0R9J3ZX Drainage of Right Shoulder Joint, Percutaneous Approach, Diagnostic (ICD-10-PCS; 2016-12-21)
PROC: 0KD50ZZ Extraction of Right Shoulder Muscle, Open Approach (ICD-10-PCS; principal; 2016-12-21 10:30)
PROC: 0KD50ZZ Extraction of Right Shoulder Muscle, Open Approach (ICD-10-PCS; 2016-12-24)
PROC: 0RJJ3ZZ Inspection of Right Shoulder Joint, Percutaneous Approach (ICD-10-PCS; 2016-12-24)
PROC: 0JDD0ZZ Extraction of Right Upper Arm Subcutaneous Tissue and Fascia, Open Approach (ICD-10-PCS; 2016-12-26)
PROC: 0JDD0ZZ Extraction of Right Upper Arm Subcutaneous Tissue and Fascia, Open Approach (ICD-10-PCS; 2016-12-29)
DX: T81.4XXA Infection following a procedure, initial encounter (principal); R78.81 Bacteremia; I10 Essential (primary) hypertension; E78.5 Hyperlipidemia, unspecified; D50.9 Iron deficiency anemia, unspecified; F17.210 Nicotine dependence, cigarettes, uncomplicated; B95.61 Methicillin susceptible Staphylococcus aureus infection as the cause of diseases classified elsewhere; Y83.8 Other surgical procedures as the cause of abnormal reaction of the patient, or of later complication, without mention of misadventure at the time of the procedure; Z96.612 Presence of left artificial shoulder joint; Z96.611 Presence of right artificial shoulder joint; Z88.0 Allergy status to penicillin; Z88.2 Allergy status to sulfonamides
CPT/HCPCS: 36415; 71010; 80048; 80202; 82565; 83735; 84100; 84520; 85025; 85610; 85651; 85730; 86140; 87040; 87070; 87075; 87102; 87116; 93005; 93306; 94664; 96374; 96375; J0131; J0360; J0690; J0692; J0696; J1170; J1650; J1885; J2175; J2250; J2270; J2405; J2543; J2765; J3010; J3370; J7050

== ENCOUNTER 2017-01-24 16:44 | Emergency (ER) | payer OTHER ==
[~2017-01-24] VITALS: Ht 175.3 cm; Wt 75.5 kg
[~2017-01-24 16:44] MED LIST changes: +HYDR-906 PO; -HYDR12.58 PO; -LORA1TAB PO; +NICO1PAT6 TRANSDERM; +SAN30GM TOP; -SERT50TA PO; +TRAM-40 PO; -ZOLP10TA3 SL; +[UNRECOGNIZED DRUG - CODE] BUCCAL
[2017-01-24 16:47] VITALS: Ht 175.3 cm; Wt 75.5 kg
[2017-01-24] MEDS ORDERED: HYDROCODONE/APAP (5/325) TAB PO ONE (17:30)
[2017-01-24 17:44] LABS: BASOPHIL # 0.1 10^3/ul (0.0-0.1); BASOPHILS % 0.8 % (0.0-2.0); EOSINOPHILS # 0.1 10^3/ul (0.0-0.5); EOSINOPHILS % 0.5 % (0.0-7.0); HEMATOCRIT 33.1 % (42.0-52.0); HEMOGLOBIN 10.8 g/dl (14.0-18.0); LYMPHOCYTES # 2.3 10^3/ul (0.8-2.9); MEAN CORPUSCULAR HGB CONC 32.6 g/dl (32.0-37.0); MEAN PLATELET VOLUME 8.9 fl (7.4-10.4); MONOCYTES % 8.5 % (0.0-11.0); NEUTROPHIL # 8.5 10^3/ul (1.6-7.5); NEUTROPHILS % 70.7 % (39.0-77.0); PLATELET COUNT 363 10^3/UL (140-415); RED BLOOD COUNT 3.72 10^6/ul (4.70-6.10); RED CELL DISTRIBUTION WIDTH 14.3 % (11.5-14.5)
--- NOTE | 2017-01-24 18:02 | ERD ---
ER Documentation Chief Complaint Chief Complaint for recheck on surgery site rt shoulder (JESSY WICK PA-C) HPI This is a 61-year-old male who presents the emergency department today complaining of right shoulder pain and swelling and worsening pain with movement over the past week. Patient states he had been admitted in the hospital for 3 weeks for an infection in his shoulder. States he had a wound VAC placed at that time. States he is continuing to take his Cipro for infection. States he is a smoker. States his orthopedic surgeon is Dr. Casillas in [place]. States he is unsure what medications he is taking for the pain. Denies any fevers or chills. (JESSY WICK PA-C) ROS All systems reviewed and are negative except as per history of present illness. (JESSY WICK PA-C) Medications Home Meds Active Scripts Collagenase* (Santyl*) 30 Gm Oint..gm., 1 APPLIC TOP DAILY, #1 BOTTLE 2 Refills Prov:ANDRES TRAN S. 01/09/17 Nicotine Polacrilex (Nicorette) 2 Mg Gum, 2 MG BUCCAL Q2H Y for agitation, #1 BOX Prov:ANDRES TRAN S. 01/09/17 Nicotine* (Nicotine* Patch) 21 mg/day Patch, 1 PATCH TRANSDERM DAILY, #30 2 Refills Prov:ANDRES TARN S. 01/09/17 Reported Medications Hydrocodone/Acetaminophen (Lakeside 5-325 Tablet) 1 Each Tablet, 1 EACH PO DAILY for NEEDED, TAB 12/18/16 Tramadol Hcl* (Ultram*) 50 Mg Tablet, 50 MG PO Q6H Y for PAIN, TAB 12/18/16 Quinapril Hcl (Quinapril Hcl) 40 Mg Tablet, 40 MG PO DAILY, #30 TAB 11/28/16 Metoprolol Tartrate* (Lopressor*) 50 Mg Tab, 50 MG PO BID, #60 TAB 11/28/16 Atorvastatin* (Atorvastatin*) 40 Mg Tablet, 40 MG PO QHS, #30 TAB 11/28/16 Ferrous Sulfate* (Ferrous Sulfate*) 325 Mg Tabec, 325 MG PO BID, TAB 11/28/16 Amlodipine Besylate* (Amlodipine Besylate*) 10 Mg Tablet, 10 MG PO DAILY, #30 TAB 11/28/16 Allergies Allergies: Coded Allergies: Sulfa (Sulfonamide Antibiotics) (Unverified Allergy, Mild, 12/18/16) Penicillins (Verified Allergy, Unknown, 12/18/16) PMhx/Soc History of Surgery: Yes ([place] Shoulder Replacement) Anesthesia Reaction: No Hx Neurological Disorder: No Hx Respiratory Disorders: No Hx Cardiac Disorders: Yes (Hx of Aortic Dissection) Hx Psychiatric Problems: No Hx Miscellaneous Medical Probl: No Hx Alcohol Use: No Hx Substance Use: No Hx Tobacco Use: No Smoking Status: Never smoker (JESSY WICK PA-C) Physical Exam Vitals Vital Signs Date Time Temp Pulse Resp B/P Pulse Ox O2 Delivery O2 Flow Rate FiO2 01/24/17 16:47 98.8 90 18 131/73 98 (MARYAN PEREZ PA-C) Physical Exam Const: NAD Head: Atraumatic Eyes: Normal Conjunctiva ENT: Normal External Ears, Nose and Mouth. Neck: Full range of motion..~ No meningismus. Resp: Clear to auscultation bilaterally Cardio: Regular rate and rhythm, no murmurs Abd: Soft, non tender, non distended. Normal bowel sounds Skin: Incisional scar posterior aspect of shoulder approximating well. No purulent drainage. MSK: Right shoulder with no obvious deformity. Mild effusion anteriorly. No erythema or warmth. Unable to assess range of motion secondary to pain Neur: Awake and alert Psych: Normal Mood and Affect (JESSY WICK PA-C) Result Diagram: 01/24/17 1735 01/24/17 1735 Results 24 hrs Laboratory Tests Test 01/24/17 17:35 01/24/17 17:40 White Blood Count 12.010^3/ul Red Blood Count 3.7210^6/ul Hemoglobin 10.8g/dl Hematocrit 33.1% Mean Corpuscular Volume 89.0fl Mean Corpuscular Hemoglobin 29.0pg Mean Corpuscular Hemoglobin Concent 32.6g/dl Red Cell Distribution Width 14.3% Platelet Count 98063^3/UL Mean Platelet Volume 8.9fl Neutrophils % 70.7% Lymphocytes % 19.0% Monocytes % 8.5% Eosinophils % 0.5% Basophils % 0.8% Nucleated Red Blood Cells % 0.0/100WBC Neutrophils # 8.510^3/ul Lymphocytes # 2.310^3/ul Monocytes # 1.010^3/ul Eosinophils # 0.110^3/ul Basophils # 0.110^3/ul Nucleated Red Blood Cells # 0.010^3/ul Erythrocyte Sedimentation Rate 82mm/Hr Sodium Level 133mmol/L Potassium Level 3.8mmol/L Chloride Level 91mmol/L Carbon Dioxide Level 33mmol/L Anion Gap 13 Blood Urea Nitrogen 24mg/dl Creatinine 1.88mg/dl Glucose Level 116mg/dl Calcium Level 8.6mg/dl Total Bilirubin 0.2mg/dl Direct Bilirubin 0.00mg/dl Indirect Bilirubin 0.2mg/dl Aspartate Amino Transf (AST/SGOT) 24IU/L Alanine Aminotransferase (ALT/SGPT) 32IU/L Alkaline Phosphatase 123IU/L C-Reactive Protein 5.6mg/dl Total Protein 7.5g/dl Albumin 4.0g/dl Globulin 3.50g/dl Albumin/Globulin Ratio 1.14 Urine Color YELLOW Urine Clarity CLOUDY Urine pH 5.0 Urine Specific [place] 1.023 Urine Ketones NEGATIVEmg/dL Urine Nitrite NEGATIVEmg/dL Urine Bilirubin NEGATIVEmg/dL Urine Urobilinogen 1+mg/dL Urine Leukocyte Esterase NEGATIVELeu/ul Urine Microscopic RBC 6/HPF Urine Microscopic WBC 5/HPF Urine Calcium Carbonate Crystals FEW/HPF Urine Hyaline Casts FEW/HPF Urine Mucus MODERATE/HPF Urine Hemoglobin NEGATIVEmg/dL Urine Glucose NEGATIVEmg/dL Urine Total Protein 1+mg/dl Current Medications Medications (Trade) Dose Ordered Sig/Sudhir Route PRN Reason Start Time Stop Time Status Last Admin Dose Admin Acetaminophen/ Hydrocodone Bitart (Lakeside (5/325)) 1 tab ONCE ONCE PO 01/24/17 17:30 01/24/17 17:31 DC 01/24/17 17:26 (MARYAN PEREZ PA-C) Procedures/MDM This is a 61-year-old male who presents the emergency department today complaining of right shoulder pain and swelling for the past week. Upon review of patient's medical records patient has had a shoulder replacement in the past and he had a hardware failure at which point he had hardware removed and subsequently got an infection after that time. Patient was admitted to the hospital for 3 weeks and was discharged 1 week ago and home on Cipro. Patient grew out MSSA bacteremia on blood cultures. He no longer is using the wound VAC. He is unsure as to what he is taking for the pain. I discussed the patient with Dr. Goyal he is recommended repeat laboratory workup and a shoulder x-ray Shoulder x-ray shows a satisfactory operative appearance of the right shoulder. There is a right humeral head prosthesis. There is no fracture dislocation or loosening. Adjacent soft tissues are unremarkable. Lab work was pending at time of signout to Shakeel Herzog Patient indicated his pain was well controlled as long as he did not move his shoulder. He was given Lakeside here in the emergency department (JESSY WICK PA-C) Patient was handed off from Jessy Wick PA-C I consulted with his orthopedic surgeon, Dr. Casillas and my supervising physician Dr Goyal who both agree that patient can be treated outpatiently. Patient's wound does not have purulent drainage, erythema, swelling or warmth. Patient's pain is stabilized in the ED and does not have pain unless he moves his arm. Patient was able to take his shirt on and off without difficulty. Plan was discussed with patient to follow up with Dr. Casillas on Thursday. Patient understands and agrees with plan. Low Suspicion for osteomyelitis, septic joint, sepsis, cellulitis, abscess. At this time, patient is stable for discharge and outpatient management with no new complaints during the ER course. Patient was sent home with instructions to follow-up with on Thursday. Patient will be discharged home with instructions to recheck for new or worsening symptoms such as fever, nausea, weakness, LOC and to follow up with primary care in the next 1-2 days. Patient was advised to return to the ER for any new or worsening symptoms. Plan was discussed and patient and/or family understands and agrees. Home instructions were given. (MARYAN PEREZ PA-C) Departure Diagnosis: Primary Impression: Shoulder pain, right Chronicity: chronic Qualified Code: M25.511 - Chronic right shoulder pain Condition: Stable JESSY WICK PA-C Jan 24, 2017 18:02 MARYAN PEREZ PA-C Jan 24, 2017 20:20
[2017-01-24 18:05] LABS: ALBUMIN/GLOBULIN RATIO 1.14; BILIRUBIN,INDIRECT 0.2 mg/dl (0-1.1); BILIRUBIN,TOTAL 0.2 mg/dl (0.2-1.3); C-REACTIVE PROTEIN 5.6 mg/dl (0.0-0.9); CALCIUM 8.6 mg/dl (8.4-10.2); CREATININE 1.88 mg/dl (0.61-1.24); POTASSIUM 3.8 mmol/L (3.5-5.1); TOTAL PROTEIN 7.5 g/dl (6.1-8.1)
--- NOTE | 2017-01-24 18:05 | RADRPT ---
PROCEDURE: XR Right Shoulder. CLINICAL INDICATION: Right shoulder pain. Postop. TECHNIQUE: 3 views. Frontal internal rotation, frontal external rotation, and oblique. COMPARISON: 12/18/2016. FINDINGS: There is a right humeral head prosthesis. This appears satisfactory. There is no fracture, dislocation, or loosening. The adjacent soft tissues are unremarkable. IMPRESSION: 1. Satisfactory postoperative appearance of the right shoulder. RPTAT: QQ .Hans Palmer MD, MD Date Time Electronically viewed and signed by .Hans Palmer MD, MD on 01/24/2017 18:04 .R/
[2017-01-24 20:05] LABS: ADD UMIC YES; UR ASCORBIC ACID NEGATIVE (NEGATIVE); UR BILIRUBIN (Dip) NEGATIVE (NEGATIVE); UR BLOOD (Dip) NEGATIVE (NEGATIVE); UR CALCIUM CARBONATE CRYSTALS FEW /HPF (NONE SEEN); UR CLARITY CLOUDY (CLEAR); UR COLOR YELLOW (YELLOW); UR GLUCOSE (Dip) NEGATIVE (NEGATIVE); UR KETONES (Dip) NEGATIVE (NEGATIVE); UR LEUKOCYTE ESTERASE (Dip) NEGATIVE Leu/ul (NEGATIVE); UR MUCUS MODERATE /HPF (NONE SEEN); UR NITRITE (Dip) NEGATIVE (NEGATIVE); UR RBC 6 /HPF (0-5); UR SPECIFIC GRAVITY (Dip) 1.023 (1.003-1.030); UR TOTAL PROTEIN (Dip) 1+ mg/dl (NEGATIVE); UR UROBILINOGEN (Dip) 1+ mg/dL (NEGATIVE)
== END 2017-01-24 20:17 | disposition home or self-care (01) ==
LOC: FTE 16:44
DX: M25.511 Pain in right shoulder (principal)
CPT/HCPCS: 36415; 73030; 80053; 81001; 85025; 85651; 86140; Z7502; Z7610

== ENCOUNTER 2017-02-20 12:39 | Inpatient (IN) | payer OTHER ==
[~2017-02-20] VITALS: Ht 175.3 cm; Wt 77.0 kg
[2017-02-20] MEDS ORDERED: SOD CHLORIDE 0.9% 1,000 ML IV STA (15:09)
[2017-02-20] MEDS ORDERED: morphine 4 MG/ML VIAL IV STA (15:13)
[2017-02-20] MEDS ORDERED: ONDANSETRON 4 MG INJ IV STA (15:13)
--- NOTE | 2017-02-20 15:13 | ERD ---
ER Documentation Chief Complaint Chief Complaint RIGHT SHOULDER PAIN, HX OF SHOULDER SURGERY, NO REDNESS/SWELLING HPI 62-year-old man referred here by orthopedic surgeon Dr. Casillas for admission, IV antibiotics, and surgical washout versus surgical repair of the right shoulder. 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 He states for the last 3 days he has had increased right shoulder pain and swelling and suspects another infection. He denies fevers or chills, no cough, no sore throat, no headache or blurry vision, no abdominal pain, no complaints of paresis or paresthesias. ROS All systems reviewed and are negative except as per history of present illness. Medications Home Meds Active Scripts Collagenase* (Santyl*) 30 Gm Oint..gm., 1 APPLIC TOP DAILY, #1 BOTTLE 2 Refills Prov:ANDRES TRAN S. 01/09/17 Nicotine Polacrilex (Nicorette) 2 Mg Gum, 2 MG BUCCAL Q2H Y for agitation, #1 BOX Prov:ANDRES TRAN S. 01/09/17 Nicotine* (Nicotine* Patch) 21 mg/day Patch, 1 PATCH TRANSDERM DAILY, #30 2 Refills Prov:ANDRES TRAN S. 01/09/17 Reported Medications Hydrocodone/Acetaminophen ([place] 5-325 Tablet) 1 Each Tablet, 1 EACH PO DAILY for NEEDED, TAB 12/18/16 Tramadol Hcl* (Ultram*) 50 Mg Tablet, 50 MG PO Q6H Y for PAIN, TAB 12/18/16 Quinapril Hcl (Quinapril Hcl) 40 Mg Tablet, 40 MG PO DAILY, #30 TAB 11/28/16 Metoprolol Tartrate* (Lopressor*) 50 Mg Tab, 50 MG PO BID, #60 TAB 11/28/16 Atorvastatin* (Atorvastatin*) 40 Mg Tablet, 40 MG PO QHS, #30 TAB 11/28/16 Ferrous Sulfate* (Ferrous Sulfate*) 325 Mg Tabec, 325 MG PO BID, TAB 11/28/16 Amlodipine Besylate* (Amlodipine Besylate*) 10 Mg Tablet, 10 MG PO DAILY, #30 TAB 11/28/16 Allergies Allergies: Coded Allergies: Sulfa (Sulfonamide Antibiotics) (Unverified Allergy, Mild, 12/18/16) Penicillins (Verified Allergy, Unknown, 12/18/16) PMhx/Soc Hypertension, hyperlipidemia, 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 and multiple washouts, aortic dissection requiring emergent surgical intervention History of Surgery: Yes ([place] Shoulder Replacement) Anesthesia Reaction: No Hx Neurological Disorder: No Hx Respiratory Disorders: No Hx Cardiac Disorders: Yes (Hx of Aortic Dissection) Hx Psychiatric Problems: No Hx Miscellaneous Medical Probl: No Hx Alcohol Use: No Hx Substance Use: No Hx Tobacco Use: No Smoking Status: Current every day smoker FmHx Family History: No diabetes Physical Exam Vitals Vital Signs Date Time Temp Pulse Resp B/P Pulse Ox O2 Delivery O2 Flow Rate FiO2 02/20/17 16:18 172/97 02/20/17 15:57 112 15 189/97 96 Room Air 02/20/17 12:47 98.2 76 18 186/107 98 Physical Exam GENERAL: Well-developed, well-nourished, appears dehydrated, moderate discomfort , afebrile HEENT: Dry mucous membranes, pink conjunctiva, no cervical spine tenderness or step-off deformities, no goiter, no jaundice or icterus, extraocular movements intact without pain. No submandibular induration, and no pharyngeal erythema NEURO: Alert and oriented 3, cranial nerves II through XII intact bilaterally, pupils equal round reactive to light, no focal deficits or facial asymmetry, sensation intact distally Strength 5/5 in upper and lower extremities bilaterally CARDIAC: Tachycardic and regular, no murmurs rubs or gallops LUNGS: Clear bilaterally no wheezing crackles or stridor ABDOMEN: Soft nontender, no guarding, no rigidity, no rebound, no psoas sign no obturator sign. Normoactive bowel sounds SKIN: Surgical changes to the shoulders bilaterally with soft tissue swelling to the right anterior shoulder with a intra-articular effusion at the right shoulder joint, no surrounding skin erythema noted, no purulent drainage or discharge noted EXTREMITIES: No clubbing cyanosis or edema, calves are bilaterally symmetrical, no Homans sign, no popliteal cord sign. Distal pulses equal and bilateral PSYCH: Normal affect without agitation or irritability Result Diagram: 02/20/17 1344 02/20/17 1344 Results 24 hrs Laboratory Tests Test 02/20/17 13:44 White Blood Count 10.410^3/ul Red Blood Count 4.4610^6/ul Hemoglobin 12.5g/dl Hematocrit 39.0% Mean Corpuscular Volume 87.4fl Mean Corpuscular Hemoglobin 28.0pg Mean Corpuscular Hemoglobin Concent 32.1g/dl Red Cell Distribution Width 14.8% Platelet Count 50188^3/UL Mean Platelet Volume 9.6fl Neutrophils % 74.4% Lymphocytes % 15.8% Monocytes % 7.8% Eosinophils % 0.6% Basophils % 0.9% Nucleated Red Blood Cells % 0.0/100WBC Neutrophils # 7.710^3/ul Lymphocytes # 1.610^3/ul Monocytes # 0.810^3/ul Eosinophils # 0.110^3/ul Basophils # 0.110^3/ul Nucleated Red Blood Cells # 0.010^3/ul Prothrombin Time 13.1Sec Prothrombin Time Ratio 1.0 INR International Normalized Ratio 0.99 Sodium Level 141mmol/L Potassium Level 2.9mmol/L Chloride Level 96mmol/L Carbon Dioxide Level 34mmol/L Anion Gap 14 Blood Urea Nitrogen 5mg/dl Creatinine 0.76mg/dl Glucose Level 112mg/dl Calcium Level 8.9mg/dl Total Bilirubin 0.3mg/dl Direct Bilirubin 0.00mg/dl Indirect Bilirubin 0.3mg/dl Aspartate Amino Transf (AST/SGOT) 50IU/L Alanine Aminotransferase (ALT/SGPT) 41IU/L Alkaline Phosphatase 141IU/L Troponin I < 0.012ng/ml Total Protein 7.8g/dl Albumin 3.7g/dl Globulin 4.10g/dl Albumin/Globulin Ratio 0.90 Lipase 83U/L Ethyl Alcohol Level 45.0mg/dl Current Medications Medications (Trade) Dose Ordered Sig/Sudhir Route PRN Reason Start Time Stop Time Status Last Admin Dose Admin Sodium Chloride (NS) 1,000 ml @ 1,000 mls/hr Q1H STAT IV 02/20/17 15:09 02/20/17 16:08 DC 02/20/17 15:48 Morphine Sulfate (morphine) 4 mg ONCE STAT IV 02/20/17 15:13 02/20/17 15:16 DC 02/20/17 15:48 Ondansetron HCl (Zofran Inj) 4 mg ONCE STAT IV 02/20/17 15:13 02/20/17 15:16 DC 02/20/17 15:47 Enalaprilat 1.25 mg 1.25 mg ONCE ONCE IV 02/20/17 15:30 02/20/17 15:31 DC 02/20/17 15:48 Meropenem/Sodium Chloride 50 ml @ 100 mls/hr Q12 IVPB 02/20/17 21:00 Vancomycin HCl (Vancocin) 250 ml @ 125 mls/hr ONCE IVPB 02/20/17 16:00 02/20/17 17:59 02/20/17 16:13 Potassium Chloride 60 meq 60 meq ONCE STAT PO 02/20/17 16:32 02/20/17 16:33 DC Magnesium Sulfate 50 ml @ 25 mls/hr ONCE ONCE IVPB 02/20/17 17:00 02/20/17 18:59 Potassium Phosphate/Sodium Chloride (K Phos (Meq)/NS) 254.5455 ml @ 63.636 m... ONCE ONCE IVPB 02/20/17 17:00 02/20/17 20:59 Procedures/MDM IV line was established patient was placed on border measurer and cutter rhythm strip revealed a sinus tachycardia at about 120 bpm with upright P and T waves. Patient was afebrile, blood cultures were ordered. I do not suspect sepsis. EKG performed, read by me revealed a sinus tachycardia at 116 bpm, normal axis, narrow QRS complex, no concerning ST elevations or depressions noted. Chest X-ray 1V Interpreted by me: Soft Tissue: No acute abnormalities Bones: No acute abnormalities Mediastinum/Cardiac Silhouette/Lungs: No acute abnormalities, sternotomy wires in place X-ray right shoulder 3V Interpreted by me: Bones: No fracture Joints: No dislocation Foreign body: Arthroplasty components in place X-ray left shoulder 3V Interpreted by me: Bones: No fracture Joints: No dislocation Foreign body: Arthroplasty components in place I administered 1 L normal saline intravenously, morphine 4 mg IV, Zofran 4 mg IV with good pain control. Patient was hypertensive and received enalapril 1.25 mg IV 1. I also administered meropenem 1 g IV and vancomycin 1 g IV. CBC was unremarkable, electrolytes revealed hypokalemia at 2.9, liver function tests were unremarkable, troponin was negative, coagulation profile was normal. Ethanol level was low,?alcoholism, especially in the setting of hypokalemia. I administered both oral and intravenous potassium supplementation, patient also received magnesium 2 g IV 1 Patient will be admitted to [facility] for medical management, IV antibiotics, and surgical intervention by Dr. Casillas, whom I spoke to. Departure Diagnosis: Primary Impression: Septic arthritis of shoulder Septic arthritis organism: due to unspecified organism Laterality: right Qualified Code: M00.9 - Pyogenic arthritis of right shoulder region, due to unspecified organism Additional Impressions: Effusion of joint of right shoulder Acute hypokalemia Condition: KATIE Sutton MD Feb 20, 2017 15:13
[2017-02-20] MEDS ORDERED: ENALAPRILAT 1.25 MG INJ IV ONE (15:30)
[2017-02-20] MEDS ORDERED: VANCOMYCIN 1 GM (PMX) 250 ML IVPB SCH (16:00)
[2017-02-20 16:10] LABS: BASOPHIL # 0.1 10^3/ul (0.0-0.1); BASOPHILS % 0.9 % (0.0-2.0); EOSINOPHILS # 0.1 10^3/ul (0.0-0.5); EOSINOPHILS % 0.6 % (0.0-7.0); HEMOGLOBIN 12.5 g/dl (14.0-18.0); LYMPHOCYTES # 1.6 10^3/ul (0.8-2.9); LYMPHOCYTES % 15.8 % (15.0-51.0); MEAN CORPUSCULAR HGB CONC 32.1 g/dl (32.0-37.0); MEAN CORPUSCULAR VOLUME 87.4 fl (82.0-101.0); MEAN PLATELET VOLUME 9.6 fl (7.4-10.4); MONOCYTE # 0.8 10^3/ul (0.3-0.9); MONOCYTES % 7.8 % (0.0-11.0); NEUTROPHIL # 7.7 10^3/ul (1.6-7.5); NEUTROPHILS % 74.4 % (39.0-77.0); PLATELET COUNT 336 10^3/UL (140-415); RED BLOOD COUNT 4.46 10^6/ul (4.70-6.10); RED CELL DISTRIBUTION WIDTH 14.8 % (11.5-14.5); WHITE BLOOD COUNT 10.4 10^3/ul (4.8-10.8)
[2017-02-20 16:26] LABS: INR 0.99; PROTIME 13.1 Sec (12.2-14.2)
[2017-02-20 16:29] LABS: ALANINE AMINOTRANSFERASE 41 IU/L (13-69); ALBUMIN 3.7 g/dl (3.3-4.9); ALKALINE PHOSPHATASE 141 IU/L (42-121); ANION GAP 14 (8-16); ASPARTATE AMINO TRANSFERASE 50 IU/L (15-46); BILIRUBIN,INDIRECT 0.3 mg/dl (0-1.1); BILIRUBIN,TOTAL 0.3 mg/dl (0.2-1.3); BLOOD UREA NITROGEN 5 mg/dl (7-20); CALCIUM 8.9 mg/dl (8.4-10.2); CARBON DIOXIDE 34 mmol/L (21-31); CHLORIDE 96 mmol/L (97-110); CREATININE 0.76 mg/dl (0.61-1.24); GLUCOSE 112 mg/dl (70-220); SODIUM 141 mmol/L (135-144); TOTAL PROTEIN 7.8 g/dl (6.1-8.1)
[2017-02-20] MEDS ORDERED: POTASSIUM CHLORIDE (SR) 20 MEQ TAB PO STA (16:32)
[2017-02-20 16:33] LABS: POTASSIUM 2.9 mmol/L (3.5-5.1)
[2017-02-20 16:41] LABS: TROPONIN-I < 0.012 ng/ml (0.00-0.12)
--- NOTE | 2017-02-20 16:43 | RADRPT ---
PROCEDURE: XR Chest. CLINICAL INDICATION: Chest pain. Abdominal pain TECHNIQUE: Portable AP semi erect view of the chest was obtained. COMPARISON: 12/18/2016 FINDINGS: The cardiomediastinal silhouette is within upper normal limits. The lungs are clear. There is no e vidence for pleural effusion, pneumothorax or pulmonary vascular congestion. Subtle wires are again demonstrated. Hemiarthroplasty hardware of the proximal humerus demonstrated bilaterally. There is no evidence of acute osseous abnormality. No free air is demonstrated below the diaphragm. RPTAT:HJJR IMPRESSION: Post thoracotomy changes without evidence for acute intrathoracic pathology or interval change from 12/18/2016. Physician Vishal Date Time Electronically viewed and signed by Physician Vishal on 02/20/2017 16:43 /
[2017-02-20] MEDS ORDERED: POTASSIUM PHOSPHATE 20 MEQ in SOD CHLORIDE 0.9% 250 ML IVPB ONE (17:00)
[2017-02-20] MEDS ORDERED: MAGNESIUM SULFATE 2 GM/50 ML 50 ML IVPB ONE (17:00)
--- NOTE | 2017-02-20 17:01 | RADRPT ---
PROCEDURE: XR Left Shoulder. CLINICAL INDICATION: Postoperative evaluation left shoulder TECHNIQUE: 3 views of the left shoulder are available for review. COMPARISON: None available FINDINGS: There is a left shoulder total arthroplasty in anatomic alignment. There is mild acromioclavicular osteoarthrosis. Soft tissues are grossly unremarkable. Visualized left lung is clear. IMPRESSION: 1. Left shoulder total arthroplasty in anatomic alignment. 2. No radiographic evidence of acute osseous abnormality. RPTAT: UU .Marcio Clark MD, Date Time Electronically viewed and signed by .Marcio Clark MD, on 02/20/2017 17:01 .K/
--- NOTE | 2017-02-20 17:10 | RADRPT ---
PROCEDURE: XR right shoulder. CLINICAL INDICATION: shoulder pain TECHNIQUE: AP Internal and external rotation views of the right shoulder were performed. COMPARISON: Radiographs of the right shoulder dated March 02, 2014. FINDINGS: Again seen is total arthroplasty of the left shoulder. Alignment is anatomic. There is no evidence o f hardware complication. The remaining osseous structures are unremarkable. Bone mineralization is appropriate. The soft tissues are grossly unremarkable. IMPRESSION: 1. Left shoulder arthroplasty with no evidence of hardware complication. RPTAT:AAJJ Physician Xi Date Time Electronically viewed and signed by Sha Mckeon Physician on 02/20/2017 17:10 QL/
[2017-02-20] MEDS ORDERED: hydrALAzine 20 MG INJ IV PRN (17:30)
--- NOTE | 2017-02-20 17:44 | HP ---
Date/Time of Note Date/Time of Note DATE: 02/20/17 TIME: 17:39 Assessment/Plan VTE Prophylaxis VTE Prophylaxis Intervention: heparin, SCD's Assessment/Plan Chief Complaint/Hosp Course o: Physical exam General: Patient is laying in bed and answers questions appropriately Mentation: Patient is alert and oriented 4, Head: Normocephalic atraumatic Eyes: EOMI, pupils reactive to light Neck: Supple, nontender, midline Respiratory: Clear to auscultation bilaterally Cardiovascular: regular rate, no obvious murmurs Gastrointestinal: non-tender to palpation, bowel sounds heard. Neurological: Moves all extremities spontaneously Skin: No new skin lesions musculoskeletal: R shoulder mildly erythematous with edema Patient is a 62-year-old male with history of bilateral shoulder replacement who presents with worsening right shoulder pain and questionable effusion Assessment and plan Right shoulder pain -Questionable infection, recent surgery, orthopedic surgeon wanted patient admitted, Dr. Sonja Sawyer. -X-rays are negative, however radiology may have read them incorrectly as right shoulder x-ray is stated as left shoulder, will speak with radiology. -Antibiotics, broad-spectrum for now Hypertensive urgency -Patient did not take his medications today -Restart medications as necessary -As needed medications for blood pressure control Anemia -Mild, monitor Hypokalemia -Replaced -Monitor Tachycardia -Likely secondary to possible infection -Fluid hydration Disposition -Awaiting orthopedic surgeon recommendations Problems: HPI/ROS Admit Date/Time Admit Date/Time Feb 20, 2017 at 16:35 Hx of Present Illness Patient is a 62-year-old male with a past medical history significant for bilateral shoulder replacement who presents with a worsening right shoulder pain. Patient proximally 1 month ago had a piece of broken hardware removed per orthopedic surgeon, however approximately a few days ago patient's right shoulder had become more erythematous and painful with a significant swelling. Patient went to his orthopedic surgeon's office who recommended patient be admitted into the medicine service for IV antibiotics and possible intervention. Patient currently complains of right shoulder pain and did not take his medications today. PMH: Hypertension, lateral shoulder pain, iron deficiency questionable, dyslipidemia, aortic dissection history PSH: Bilateral shoulder replacement, aortic dissection graft Social: Moderate to mild smoker, occasional alcohol, denies recreational drugs Meds: Quinapril, metoprolol, atorvastatin, iron, amlodipine PMH/Family/Social Social History Smoking Status: Current every day smoker Exam/Review of Systems Vital Signs Vitals Vital Signs Date Time Temp Pulse Resp B/P Pulse Ox O2 Delivery O2 Flow Rate FiO2 02/20/17 16:18 172/97 02/20/17 15:57 112 15 96 Room Air 02/20/17 12:47 98.2 Labs Result Diagram: 02/20/17 1344 02/20/17 1344 Medications Medications Current Medications Meropenem/Sodium Chloride 50 ml @ 100 mls/hr Q12 IVPB ; Start 02/20/17 at 21: 00 Vancomycin HCl 250 ml @ 125 mls/hr ONCE IVPB Last administered on 02/20/17t 16:13; Admin Dose 125 MLS/HR; Start 02/20/17 at 16:00; Stop 02/20/17 at 17:59 Magnesium Sulfate 50 ml @ 25 mls/hr ONCE ONCE IVPB ; Start 02/20/17 at 17:00; Stop 02/20/17 at 18:59 Potassium Phosphate/Sodium Chloride (K Phos (Meq)/NS) 254.5455 ml @ 63.636 m... ONCE ONCE IVPB ; Start 02/20/17 at 17:00; Stop 02/20/17 at 20:59 Amlodipine Besylate (Norvasc) 10 mg DAILY PO ; Start 02/20/17 at 17:30 Atorvastatin Calcium (Lipitor) 40 mg QHS PO ; Start 02/20/17 at 21:00 Metoprolol Tartrate (Lopressor) 50 mg BID PO ; Start 02/20/17 at 21:00 Benazepril HCl (Lotensin) 40 mg DAILY PO ; Start 02/21/17 at 09:00 Hydralazine HCl 10 mg 10 mg Q4H PRN IV sbp>160; Start 02/20/17 at 17:30 Sodium Chloride (1/2 NS) 1,000 ml @ 70 mls/hr [id number] IV ; Start 02/20/17 at 17:31; Status UNV Lorazepam (Ativan) 0.5 mg Q8H PRN PO ANXIETY; Start 02/20/17 at 18:00; Status UNV Ondansetron HCl (Zofran Inj) 4 mg Q6H PRN IV NAUSEA AND/OR VOMITING; Start at 18:00; Status UNV Acetaminophen (Tylenol Tab) 650 mg Q6H PRN PO PAIN LEVEL 1-3 OR FEVER; Start 02/20/17 at 18:00; Status UNV Acetaminophen/ Hydrocodone Bitart ([place] (5/325)) 1 tab Q6H PRN PO PAIN LEVEL 4 -6; Start 02/20/17 at 18:00; Status UNV Morphine Sulfate (morphine) 2 mg Q4H PRN IV PAIN LEVEL 7-10; Start 02/20/17 at 18:00; Status UNV Bisacodyl (Dulcolax) 5 mg DAILY PRN PO CONSTIPATION; Start 02/20/17 at 18:00; Status UNV Pantoprazole (Protonix Tab) 40 mg DAILY@06 PO ; Start 02/21/17 at 06:00; Status UNV Heparin Sodium (Porcine) (Heparin (5000 Units/0.5 ml)) 5,000 unit Q8 SC ; Start 02/20/17 at 22:00; Status UNV Nicotine (Nicoderm 14 Mg/ 24hr) 1 patch DAILY PRN TRANSDERM smoking; Start at 18:00; Status UNV KATIE JONES Feb 20, 2017 17:44
[2017-02-20] MEDS ORDERED: ALBUTEROL/IPRATROPIUM (NEB) 3 ML AMP HHN PRN (18:00)
[2017-02-20] MEDS ORDERED: BISACODYL (EC) 5 MG TAB PO PRN (18:00)
[2017-02-20] MEDS ORDERED: LORAZEPAM 2 MG INJ IV PRN (18:00)
[2017-02-20] MEDS ORDERED: NACL 0.9% 3 ML SYG IV SCH (18:00)
[2017-02-20] MEDS ORDERED: ACETAMINOPHEN 325 MG TAB PO PRN (18:00)
[2017-02-20] MEDS ORDERED: ONDANSETRON 4 MG INJ IV PRN (18:00)
[2017-02-20] MEDS ORDERED: NICOTINE (14 MG/24 HR) PATCH TRANSDERM PRN (18:00)
[2017-02-20] MEDS: morphine 2 MG INJ IV PRN ×2 (18:05→22:04)
[2017-02-20] MEDS: SOD CHLORIDE 0.45% 1,000 ML IV SCH (18:06)
[2017-02-20 18:30] VITALS: Ht 175.3 cm; Wt 77.0 kg
[2017-02-20 18:32] VITALS: BP 184/102; PULSE 113; RESP 18
[2017-02-20] MEDS: AMLODIPINE 10 MG TAB PO SCH (18:37)
[2017-02-20 19:10] VITALS: BP 175/94; RESP 22
[2017-02-20] MEDS ORDERED: INFLUENZA VIRUS VACCINE 0.5 ML (DISPENSING) IM* ONE (19:30)
[2017-02-20] MEDS: ATORVASTATIN 40 MG TAB PO SCH (20:49)
[2017-02-20] MEDS: METOPROLOL 50 MG TAB PO SCH (20:50)
[2017-02-20 22:00] VITALS: BP 141/79; PULSE 89
[2017-02-20] MEDS: HEPARIN 5,000 UNIT/0.5 ML VIAL SC SCH (22:03)
[2017-02-20] MEDS: MEROPENEM 1 GM/50ML(PMX) 50 ML IVPB SCH (23:18)
[2017-02-20] MEDS: HYDROCODONE/APAP (5/325) TAB PO PRN (23:56)
[2017-02-21 01:42] VITALS: BP 137/83; RESP 20
[2017-02-21] MEDS: morphine 2 MG INJ IV PRN ×8 (02:10→22:37)
[2017-02-21] MEDS ORDERED: VANCOMYCIN 1.25 GM in SOD CHLORIDE 0.9% 250 ML IVPB SCH (05:00)
[2017-02-21] MEDS: PANTOPRAZOLE (EC) 40 MG TAB PO SCH (06:02)
[2017-02-21] MEDS: HEPARIN 5,000 UNIT/0.5 ML VIAL SC SCH ×3 (06:09→22:43)
[2017-02-21 06:40] LABS: BASOPHIL # 0.1 10^3/ul (0.0-0.1); BASOPHILS % 0.8 % (0.0-2.0); EOSINOPHILS # 0.2 10^3/ul (0.0-0.5); EOSINOPHILS % 2.1 % (0.0-7.0); HEMATOCRIT 33.2 % (42.0-52.0); HEMOGLOBIN 10.6 g/dl (14.0-18.0); LYMPHOCYTES % 17.8 % (15.0-51.0); MEAN CORPUSCULAR HEMOGLOBIN 28.6 pg (29.0-33.0); MEAN CORPUSCULAR HGB CONC 31.9 g/dl (32.0-37.0); MEAN CORPUSCULAR VOLUME 89.7 fl (82.0-101.0); MEAN PLATELET VOLUME 9.9 fl (7.4-10.4); MONOCYTE # 1.3 10^3/ul (0.3-0.9); MONOCYTES % 11.7 % (0.0-11.0); NEUTROPHIL # 7.6 10^3/ul (1.6-7.5); PLATELET COUNT 290 10^3/UL (140-415); WHITE BLOOD COUNT 11.3 10^3/ul (4.8-10.8)
[2017-02-21 07:03] LABS: ALBUMIN 2.8 g/dl (3.3-4.9); ALBUMIN/GLOBULIN RATIO 0.73; BILIRUBIN,INDIRECT 0.5 mg/dl (0-1.1); BILIRUBIN,TOTAL 0.5 mg/dl (0.2-1.3); CALCIUM 8.6 mg/dl (8.4-10.2); CREATININE 0.96 mg/dl (0.61-1.24); MAGNESIUM 2.1 mg/dl (1.7-2.5); POTASSIUM 4.1 mmol/L (3.5-5.1); TOTAL PROTEIN 6.6 g/dl (6.1-8.1)
[2017-02-21 08:00] VITALS: BP 134/68; RESP 18
[2017-02-21] MEDS: SOD CHLORIDE 0.45% 1,000 ML IV SCH ×2 (08:46→22:37)
[2017-02-21] MEDS: MEROPENEM 1 GM/50ML(PMX) 50 ML IVPB SCH ×2 (08:47→20:29)
[2017-02-21] MEDS: METOPROLOL 50 MG TAB PO SCH ×2 (08:49→20:30)
[2017-02-21] MEDS: BENAZEPRIL 40 MG TAB PO SCH (08:49)
[2017-02-21] MEDS: HYDROCODONE/APAP (5/325) TAB PO PRN (08:50)
[2017-02-21] MEDS: AMLODIPINE 10 MG TAB PO SCH (08:50)
[2017-02-21] MEDS ORDERED: morphine 2 MG INJ IV STA (11:50)
[2017-02-21] MEDS ORDERED: ZOLPIDEM 5 MG TAB PO PRN (12:00)
--- NOTE | 2017-02-21 12:14 | PN ---
Date/Time of Note Date/Time of Note DATE: 02/21/17 TIME: 12:13 Assessment/Plan VTE Prophylaxis VTE Prophylaxis Intervention: ambulation, SCD's Lines/Catheters IV Catheter Type (from Nrsg): Peripheral IV Assessment/Plan Chief Complaint/Hosp Course s: 02.21 No new complaints, still severe pain in R shoulder o: Physical exam General: Patient is laying in bed and answers questions appropriately Mentation: Patient is alert and oriented 4, Head: Normocephalic atraumatic Eyes: EOMI, pupils reactive to light Neck: Supple, nontender, midline Respiratory: Clear to auscultation bilaterally Cardiovascular: regular rate, no obvious murmurs Gastrointestinal: non-tender to palpation, bowel sounds heard. Neurological: Moves all extremities spontaneously Skin: No new skin lesions musculoskeletal: R shoulder mildly erythematous with edema Patient is a 62-year-old male with history of bilateral shoulder replacement who presents with worsening right shoulder pain and questionable effusion Assessment and plan Right shoulder pain -Questionable infection, recent surgery, orthopedic surgeon wanted patient admitted, Recs appreciated, Dr. Casillas. -surgery planned for thursday -Antibiotics, broad-spectrum for now Hypertensive urgency -resolved -Restart medications as necessary -As needed medications for blood pressure control Anemia -Mild, monitor Hypokalemia -Replaced -Monitor Tachycardia -Likely secondary to possible infection -Fluid hydration -stable, monitor Disposition -Awaiting orthopedic surgeon recommendations, surgery thursday Problems: Exam/Review of Systems Vital Signs Vitals Vital Signs Date Time Temp Pulse Resp B/P Pulse Ox O2 Delivery O2 Flow Rate FiO2 02/21/17 08:00 98.3 81 18 134/68 96 02/20/17 18:32 Room Air Intake and Output 02/20/17 02/20/17 02/21/17 15:00 23:00 07:00 Intake Total 500 ml 2695 ml Balance 500 ml 2695 ml Results Result Diagram: 02/21/17 0454 02/21/17 0454 Results 24 hrs Laboratory Tests Test 02/20/17 13:44 02/21/17 04:54 White Blood Count 10.4 11.3 H Red Blood Count 4.46 L 3.70 L Hemoglobin 12.5 L 10.6 L Hematocrit 39.0 L 33.2 L Mean Corpuscular Volume 87.4 89.7 Mean Corpuscular Hemoglobin 28.0 L 28.6 L Mean Corpuscular Hemoglobin Concent 32.1 31.9 L Red Cell Distribution Width 14.8 H 15.0 H Platelet Count 336 290 Mean Platelet Volume 9.6 9.9 Neutrophils % 74.4 67.0 Lymphocytes % 15.8 17.8 Monocytes % 7.8 11.7 H Eosinophils % 0.6 2.1 Basophils % 0.9 0.8 Nucleated Red Blood Cells % 0.0 0.0 Neutrophils # 7.7 H 7.6 H Lymphocytes # 1.6 2.0 Monocytes # 0.8 1.3 H Eosinophils # 0.1 0.2 Basophils # 0.1 0.1 Nucleated Red Blood Cells # 0.0 0.0 Prothrombin Time 13.1 Prothrombin Time Ratio 1.0 INR International Normalized Ratio 0.99 Sodium Level 141 135 Potassium Level 2.9 *L 4.1 Chloride Level 96 L 97 Carbon Dioxide Level 34 H 33 H Anion Gap 14 9 # Blood Urea Nitrogen 5 L 12 Creatinine 0.76 0.96 Glucose Level 112 94 Calcium Level 8.9 8.6 Total Bilirubin 0.3 0.5 Direct Bilirubin 0.00 0.00 Indirect Bilirubin 0.3 0.5 Aspartate Amino Transf (AST/SGOT) 50 H 35 Alanine Aminotransferase (ALT/SGPT) 41 36 Alkaline Phosphatase 141 H 109 Troponin I < 0.012 Total Protein 7.8 6.6 # Albumin 3.7 2.8 L Globulin 4.10 H 3.80 H Albumin/Globulin Ratio 0.90 0.73 Lipase 83 Ethyl Alcohol Level 45.0 Magnesium Level 2.1 Medications Medications Current Medications Meropenem/Sodium Chloride (Merrem 1 Gm/50 ml (Pmx)) 50 ml @ 100 mls/hr Q12 IVPB Last administered on 02/21/17 08:47; Admin Dose 100 MLS/HR; Start 02/20 at 21:00 Amlodipine Besylate (Norvasc) 10 mg DAILY PO Last administered on 02/21/17 08 :50; Admin Dose 10 MG; Start 02/20/17 at 17:30 Atorvastatin Calcium (Lipitor) 40 mg QHS PO Last administered on 02/20/17 20: 49; Admin Dose 40 MG; Start 02/20/17 at 21:00 Metoprolol Tartrate (Lopressor) 50 mg BID PO Last administered on 02/21/17 08 :49; Admin Dose 50 MG; Start 02/20/17 at 21:00 Benazepril HCl (Lotensin) 40 mg DAILY PO Last administered on 02/21/17 08:49 ; Admin Dose 40 MG; Start 02/21/17 at 09:00 Hydralazine HCl 10 mg 10 mg Q4H PRN IV sbp>160 Last administered on 02/20/17 18:38; Admin Dose 10 MG; Start 02/20/17 at 17:30 Sodium Chloride (1/2 NS) 1,000 ml @ 70 mls/hr [id number] IV Last administered on 02/21/17 08:46; Admin Dose 70 MLS/HR; Start 02/20/17 at 17:31 Lorazepam (Ativan) 0.5 mg Q8H PRN PO ANXIETY; Start 02/20/17 at 18:00 Ondansetron HCl (Zofran Inj) 4 mg Q6H PRN IV NAUSEA AND/OR VOMITING; Start at 18:00 Acetaminophen (Tylenol Tab) 650 mg Q6H PRN PO PAIN LEVEL 1-3 OR FEVER; Start 02/20/17 at 18:00 Acetaminophen/ Hydrocodone Bitart ([place] (5/325)) 1 tab Q6H PRN PO PAIN LEVEL 4 -6 Last administered on 02/21/17 08:50; Admin Dose 1 TAB; Start 02/20/17 at 18:00 Bisacodyl (Dulcolax) 5 mg DAILY PRN PO CONSTIPATION; Start 02/20/17 at 18:00 Pantoprazole (Protonix Tab) 40 mg DAILY@06 PO Last administered on 02/21/17 06:02; Admin Dose 40 MG; Start 02/21/17 at 06:00 Heparin Sodium (Porcine) (Heparin (5000 Units/0.5 ml)) 5,000 unit Q8 SC Last administered on 02/21/17 06:09; Admin Dose 5,000 UNIT; Start 02/20/17 at 22: 00 Nicotine (Nicoderm 14 Mg/ 24hr) 1 patch DAILY PRN TRANSDERM smoking; Start at 18:00 Lorazepam 2 mg 2 mg Q10MIN PRN IV seizure; Start 02/20/17 at 18:00 Vancomycin HCl/ Sodium Chloride (Vancocin/NS) 250 ml @ 83.333 mls/ hr Q12H IVPB ; Start 02/21/17 at 18:00 Miscellaneous Information (*Rx Drug Level Order Reminder*) VANCOMYCIN TROUGH AT 0500 ONCE ONCE XX ; Start 02/22/17 at 05:00; Stop 02/22/17 at 05:01 Morphine Sulfate (morphine) 2 mg Q2H PRN IV PAIN LEVEL 7-10; Start 02/21/17 at 13:00 KATIE JONES Feb 21, 2017 12:14
[2017-02-21 13:16] LABS: BARBITURATES Negative (NEGATIVE); BENZODIAZEPINES Negative (NEGATIVE); CANNABINOIDS Negative (NEGATIVE); COCAINE Negative (NEGATIVE)
[2017-02-21 13:19] LABS: OPIATES Positive (NEGATIVE)
[2017-02-21 14:00] VITALS: BP 142/71; RESP 18
[2017-02-21] MEDS: VANCOMYCIN 1.25 GM in SOD CHLORIDE 0.9% 250 ML IVPB SCH (17:34)
[2017-02-21] MEDS ORDERED: VANCOMYCIN 1 GM (PMX) 250 ML IVPB SCH (18:00)
[2017-02-21 20:00] VITALS: BP 120/67; RESP 19
[2017-02-21] MEDS: ATORVASTATIN 40 MG TAB PO SCH (20:29)
[2017-02-22] MEDS: morphine 2 MG INJ IV PRN ×7 (00:42→20:33)
[2017-02-22 02:00] VITALS: BP 125/68; RESP 18
[2017-02-22 05:42] LABS: BASOPHIL # 0.1 10^3/ul (0.0-0.1); BASOPHILS % 0.9 % (0.0-2.0); EOSINOPHILS # 0.2 10^3/ul (0.0-0.5); EOSINOPHILS % 1.7 % (0.0-7.0); HEMATOCRIT 31.4 % (42.0-52.0); LYMPHOCYTES # 1.3 10^3/ul (0.8-2.9); LYMPHOCYTES % 13.4 % (15.0-51.0); MEAN CORPUSCULAR HEMOGLOBIN 28.5 pg (29.0-33.0); MEAN CORPUSCULAR HGB CONC 31.8 g/dl (32.0-37.0); MEAN CORPUSCULAR VOLUME 89.5 fl (82.0-101.0); MEAN PLATELET VOLUME 9.8 fl (7.4-10.4); MONOCYTE # 1.1 10^3/ul (0.3-0.9); MONOCYTES % 11.4 % (0.0-11.0); NEUTROPHIL # 6.9 10^3/ul (1.6-7.5); NEUTROPHILS % 71.9 % (39.0-77.0); PLATELET COUNT 296 10^3/UL (140-415); RED BLOOD COUNT 3.51 10^6/ul (4.70-6.10); RED CELL DISTRIBUTION WIDTH 14.9 % (11.5-14.5); WHITE BLOOD COUNT 9.6 10^3/ul (4.8-10.8)
[2017-02-22] MEDS: PANTOPRAZOLE (EC) 40 MG TAB PO SCH (05:48)
[2017-02-22] MEDS: HEPARIN 5,000 UNIT/0.5 ML VIAL SC SCH ×3 (05:50→20:35)
[2017-02-22 06:08] LABS: CALCIUM 8.7 mg/dl (8.4-10.2); CREATININE 0.99 mg/dl (0.61-1.24); MAGNESIUM 1.9 mg/dl (1.7-2.5); PHOSPHORUS 3.6 mg/dl (2.5-4.9)
[2017-02-22] MEDS: VANCOMYCIN 1.25 GM in SOD CHLORIDE 0.9% 250 ML IVPB SCH ×2 (06:53→17:31)
[2017-02-22 09:03] VITALS: BP 142/81; RESP 18
[2017-02-22] MEDS: METOPROLOL 50 MG TAB PO SCH ×2 (09:25→20:33)
[2017-02-22] MEDS: BENAZEPRIL 40 MG TAB PO SCH (09:26)
[2017-02-22] MEDS: AMLODIPINE 10 MG TAB PO SCH (09:26)
[2017-02-22] MEDS: HYDROCODONE/APAP (5/325) TAB PO PRN ×2 (09:32→16:00)
[2017-02-22] MEDS: MEROPENEM 1 GM/50ML(PMX) 50 ML IVPB SCH ×2 (09:32→20:32)
--- NOTE | 2017-02-22 11:17 | PN ---
Date/Time of Note Date/Time of Note DATE: 02/22/17 TIME: 11:16 Assessment/Plan VTE Prophylaxis VTE Prophylaxis Intervention: ambulation, SCD's Lines/Catheters IV Catheter Type (from Nrsg): Peripheral IV Assessment/Plan Chief Complaint/Hosp Course s: . No new complaints, still severe pain in R shoulder 02.22 no acute overnight events, no new complaints o: Physical exam General: Patient is laying in bed and answers questions appropriately Mentation: Patient is alert and oriented 4, Head: Normocephalic atraumatic Eyes: EOMI, pupils reactive to light Neck: Supple, nontender, midline Respiratory: Clear to auscultation bilaterally Cardiovascular: regular rate, no obvious murmurs Gastrointestinal: non-tender to palpation, bowel sounds heard. Neurological: Moves all extremities spontaneously Skin: No new skin lesions musculoskeletal: R shoulder mildly erythematous with edema Patient is a 62-year-old male with history of bilateral shoulder replacement who presents with worsening right shoulder pain and questionable effusion Assessment and plan Right shoulder pain -Questionable infection, recent surgery, orthopedic surgeon wanted patient admitted, Recs appreciatedDr. Casillas. -surgery planned for thursday -Antibiotics, broad-spectrum for now Hypertensive urgency -resolved -Restart medications as necessary -As needed medications for blood pressure control Anemia -Mild, monitor Hypokalemia -Replaced -Monitor Tachycardia -Likely secondary to possible infection -Fluid hydration -stable, monitor Disposition -Awaiting orthopedic surgeon recommendations, surgery thursday Problems: Exam/Review of Systems Vital Signs Vitals Vital Signs Date Time Temp Pulse Resp B/P Pulse Ox O2 Delivery O2 Flow Rate FiO2 02/22/17 09:03 98.2 92 18 142/81 96 02/20/17 18:32 Room Air Intake and Output 02/21/17 02/21/17 02/22/17 14:59 22:59 06:59 Intake Total 300 ml 3300 ml 465 ml Balance 300 ml 3300 ml 465 ml Results Result Diagram: 02/22/17 0448 02/22/17 0448 Results 24 hrs Laboratory Tests Test 02/22/17 04:48 White Blood Count 9.6 Red Blood Count 3.51 L Hemoglobin 10.0 L Hematocrit 31.4 L Mean Corpuscular Volume 89.5 Mean Corpuscular Hemoglobin 28.5 L Mean Corpuscular Hemoglobin Concent 31.8 L Red Cell Distribution Width 14.9 H Platelet Count 296 Mean Platelet Volume 9.8 Neutrophils % 71.9 Lymphocytes % 13.4 L Monocytes % 11.4 H Eosinophils % 1.7 Basophils % 0.9 Nucleated Red Blood Cells % 0.0 Neutrophils # 6.9 Lymphocytes # 1.3 Monocytes # 1.1 H Eosinophils # 0.2 Basophils # 0.1 Nucleated Red Blood Cells # 0.0 Sodium Level 134 L Potassium Level 5.0 Chloride Level 95 L Carbon Dioxide Level 34 H Anion Gap 10 Blood Urea Nitrogen 13 Creatinine 0.99 Glucose Level 85 Calcium Level 8.7 Phosphorus Level 3.6 Magnesium Level 1.9 Vancomycin Level Trough 12.2 Medications Medications Current Medications Meropenem/Sodium Chloride (Merrem 1 Gm/50 ml (Pmx)) 50 ml @ 100 mls/hr Q12 IVPB Last administered on 02/22/17 09:32; Admin Dose 100 MLS/HR; Start 02/20 at 21:00 Amlodipine Besylate (Norvasc) 10 mg DAILY PO Last administered on 02/22/17 09 :26; Admin Dose 10 MG; Start 02/20/17 at 17:30 Atorvastatin Calcium (Lipitor) 40 mg QHS PO Last administered on 02/21/17 20: 29; Admin Dose 40 MG; Start 02/20/17 at 21:00 Metoprolol Tartrate (Lopressor) 50 mg BID PO Last administered on 02/22/17 09 :25; Admin Dose 50 MG; Start 02/20/17 at 21:00 Benazepril HCl (Lotensin) 40 mg DAILY PO Last administered on 02/22/17 09:26 ; Admin Dose 40 MG; Start 02/21/17 at 09:00 Hydralazine HCl (Apresoline) 10 mg Q4H PRN IV sbp>160 Last administered on 18:38; Admin Dose 10 MG; Start 02/20/17 at 17:30 Lorazepam (Ativan) 0.5 mg Q8H PRN PO ANXIETY; Start 02/20/17 at 18:00 Ondansetron HCl (Zofran Inj) 4 mg Q6H PRN IV NAUSEA AND/OR VOMITING; Start at 18:00 Acetaminophen (Tylenol Tab) 650 mg Q6H PRN PO PAIN LEVEL 1-3 OR FEVER; Start 02/20/17 at 18:00 Acetaminophen/ Hydrocodone Bitart ([place] (5/325)) 1 tab Q6H PRN PO PAIN LEVEL 4 -6 Last administered on 02/22/17 09:32; Admin Dose 1 TAB; Start 02/20/17 at 18:00 Bisacodyl (Dulcolax) 5 mg DAILY PRN PO CONSTIPATION; Start 02/20/17 at 18:00 Pantoprazole (Protonix Tab) 40 mg DAILY@06 PO Last administered on 02/22/17 05:48; Admin Dose 40 MG; Start 02/21/17 at 06:00 Heparin Sodium (Porcine) (Heparin (5000 Units/0.5 ml)) 5,000 unit Q8 SC Last administered on 02/22/17 05:50; Admin Dose 5,000 UNIT; Start 02/20/17 at 22: 00 Nicotine (Nicoderm 14 Mg/ 24hr) 1 patch DAILY PRN TRANSDERM smoking; Start at 18:00 Lorazepam 2 mg 2 mg Q10MIN PRN IV seizure; Start 02/20/17 at 18:00 Vancomycin HCl/ Sodium Chloride (Vancocin/NS) 250 ml @ 83.333 mls/ hr Q12H IVPB Last administered on 02/22/17 06:53; Admin Dose 83.333 MLS/HR; Start at 18:00 Morphine Sulfate (morphine) 2 mg Q2H PRN IV PAIN LEVEL 7-10 Last administered on 02/22/17 08:13; Admin Dose 2 MG; Start 02/21/17 at 13:00 KATIE JONES Feb 22, 2017 11:17
--- NOTE | 2017-02-22 19:26 | CONS ---
DATE OF ADMISSION: 02/20/2017 DATE OF CONSULTATION: 02/22/2017 CHIEF COMPLAINT: Right shoulder infection CONSULTING SERVICE: Hospitalist service. HISTORY OF PRESENT ILLNESS: Al almanzar patient very well known to me with a history of bilateral tota l shoulder arthroplasties, both performed at [facility], both performed by Dr. Phillip Magaña. The patient due to change of insurance care was presumed by myself at which time the gina rachel was doing well from both his shoulder arthroplasties, although he had a history of previous i nfection and revision on the left. The patient came to me with a complaint of a dislocated prosthet ic component of his glenoid which was loose and causing him discomfort. For that reason, he underwe nt an arthroscopic removal of that component several months ago and the patient was lost to followup , resulting in a wound infection and subsequent admission to this hospital, requiring multiple irrig ation and debridements and antibiotic treatment. The patient was again very poor with his follow up and recently called stating there was a resumption of his symptoms of possible infection. We had s een him in the office several weeks ago and discussed with him the very high likelihood of infection of his prosthesis necessitating full removal and a staged revision and the patient, although very gina huertas was refusing that treatment because he underwent the same thing on his left side several years ago and it was very uncomforting for him, but eventually he acquiesced and he presents to the [facility] at this time. The patient has increased right shoulder pain, difficulty with overhead activitie s and reaching out in front of him. His pain is moderate to severe in intensity. He denies any fev ers or chills, change in bowel or bladder habits. He is complaining of some muscle achiness. PAST MEDICAL HISTORY: Hypertension. PAST SURGICAL HISTORY: Bilateral shoulder surgeries, multiple open heart surgeries. MEDICATIONS: Cipro. ALLERGIES: NONE. REVIEW OF SYSTEMS: A 14-point review of systems negative except for that in the HPI. PHYSICAL EXAMINATION GENERAL: Patient is afebrile. His vital signs are stable. EXTREMITIES: There is palpable swelling of the right anterior shoulder through previous incisions. There is decreased range of motion but grossly intact. He is neurovascularly intact, grossly in th e upper extremity from both point of sensory and motor function. IMAGING: X-rays of the right shoulder, multiple views taken today demonstrate no interval changes. Laboratory studies demonstrate the elevated white count. ASSESSMENT AND PLAN: Infection of right shoulder arthroplasty. Plan at this time, arthrocentesis w as performed with the patient's right shoulder and a purulent fluid was removed from the shoulder. He felt better with regards to pain after the procedure now that this area was slightly decompressed . Approximately 15 mL of fluid was removed. At this time, arrangements will be made for surgery th at we wished to perform long ago now that the patient is finally consenting. We are going to go ahe ad and plan for that which is going to be a 2 staged surgery. Surgery [address] ly, will be removal of the existing hardware and placement of an antibiotic spacer for which time he will be given the long-term antibiotics until his infection clears and when that happens which will take likely 3 to 6 months we will come back for revision to a new prosthesis. At this time, we tawnya l make the arrangements for that surgery and the extraction hardware, which will be necessary the im plant that the patient has in his shoulder was one that was commonly used at this hospital several y ears ago, but there it is no longer used, therefore the extraction hardware will have to be located and we will make phone calls to try and make that happen as soon as possible and when available, we will proceed on with that surgery. The aspirate which was taken today of the patient's shoulder was placed into a wound culture sticks and these were sent to the laboratory for speciation and antibio tic sensitivities. I appreciate his admission to the hospitalist service and excellent care that he has been provided thus far. Dictated By: SARANYA MCKEON/NTS Conf#: [id number] DID#: [id number] CC: KATIE JONES MD;*EndCC*
[2017-02-22 20:29] VITALS: BP 140/78; RESP 19
[2017-02-22] MEDS: ATORVASTATIN 40 MG TAB PO SCH (20:32)
[2017-02-22] MEDS: LORAZEPAM 0.5 MG TAB PO PRN (20:33)
[2017-02-23 02:11] VITALS: BP 150/90; RESP 19
[2017-02-23] MEDS: HYDROCODONE/APAP (5/325) TAB PO PRN ×2 (02:22→10:20)
[2017-02-23] MEDS: PANTOPRAZOLE (EC) 40 MG TAB PO SCH (05:22)
[2017-02-23] MEDS: LORAZEPAM 0.5 MG TAB PO PRN (05:22)
[2017-02-23] MEDS: HEPARIN 5,000 UNIT/0.5 ML VIAL SC SCH ×3 (05:23→21:19)
[2017-02-23] MEDS: VANCOMYCIN 1.25 GM in SOD CHLORIDE 0.9% 250 ML IVPB SCH ×2 (05:25→18:00)
[2017-02-23 05:35] LABS: BASOPHIL # 0.1 10^3/ul (0.0-0.1); BASOPHILS % 0.8 % (0.0-2.0); EOSINOPHILS # 0.1 10^3/ul (0.0-0.5); EOSINOPHILS % 1.9 % (0.0-7.0); HEMATOCRIT 33.1 % (42.0-52.0); HEMOGLOBIN 10.5 g/dl (14.0-18.0); LYMPHOCYTES # 1.2 10^3/ul (0.8-2.9); MEAN CORPUSCULAR HEMOGLOBIN 27.6 pg (29.0-33.0); MEAN CORPUSCULAR HGB CONC 31.7 g/dl (32.0-37.0); MEAN CORPUSCULAR VOLUME 87.1 fl (82.0-101.0); MEAN PLATELET VOLUME 9.3 fl (7.4-10.4); MONOCYTE # 0.9 10^3/ul (0.3-0.9); MONOCYTES % 15.2 % (0.0-11.0); NEUTROPHIL # 3.8 10^3/ul (1.6-7.5); NEUTROPHILS % 62.3 % (39.0-77.0); PLATELET COUNT 329 10^3/UL (140-415); RED CELL DISTRIBUTION WIDTH 14.7 % (11.5-14.5); WHITE BLOOD COUNT 6.2 10^3/ul (4.8-10.8)
[2017-02-23] MEDS: morphine 2 MG INJ IV PRN ×2 (05:53→08:52)
[2017-02-23 06:08] LABS: CALCIUM 8.2 mg/dl (8.4-10.2); CREATININE 0.92 mg/dl (0.61-1.24); MAGNESIUM 2.1 mg/dl (1.7-2.5)
[2017-02-23 07:25] VITALS: BP 128/66; RESP 18
[2017-02-23] MEDS: AMLODIPINE 10 MG TAB PO SCH (08:53)
[2017-02-23] MEDS: METOPROLOL 50 MG TAB PO SCH ×2 (08:53→20:10)
[2017-02-23] MEDS: BENAZEPRIL 40 MG TAB PO SCH (08:53)
[2017-02-23] MEDS: MEROPENEM 1 GM/50ML(PMX) 50 ML IVPB SCH ×2 (10:20→21:18)
--- NOTE | 2017-02-23 10:30 | PN ---
Date/Time of Note Date/Time of Note DATE: 02/23/17 TIME: 10:30 Assessment/Plan VTE Prophylaxis VTE Prophylaxis Intervention: heparin Lines/Catheters IV Catheter Type (from Nrsg): Saline Lock Assessment/Plan Assessment/Plan 1. Right shoulder pain secondary to ?infected hardware - Ortho on board and consultation greatly appreciated. Will touch base with Ortho regarding timing for surgery - Culture growing Staph Aureus and patient on Vancomycin - Remains afebrile with normal WBC - Pain control adjusted and will taper back IV morphine/Dilaudid after surgery 2. Hypertensive urgency-resolved - Continue current medications and will adjust as needed 3. Anemia - Mild, continue to monitor 4. Hypokalemia- resolved - Continue to monitor 5. Tachycardia- resolved -Likely secondary to possible infection -stable, monitor 6. Disposition - Awaiting ortho recommendations/surgery Subjective 24 Hr Interval Summary Free Text/Dictation Patient still experiencing severe pain in right shoulder with moderate relief with Morphine. Denies any acute overnight events. Last BM yesterday with no constipation. Exam/Review of Systems Vital Signs Vitals Vital Signs Date Time Temp Pulse Resp B/P Pulse Ox O2 Delivery O2 Flow Rate FiO2 02/23/17 07:25 98.6 82 18 128/66 98 02/20/17 18:32 Room Air Intake and Output 02/22/17 02/22/17 02/23/17 15:00 23:00 07:00 Intake Total 300 ml 2550 ml 1550 ml Balance 300 ml 2550 ml 1550 ml Exam General: Patient is laying in bed and answers questions appropriately, mild distress with movement secondary to pain Mentation: Patient is alert and oriented 4, Head: Normocephalic atraumatic Neck: Supple, nontender, midline Respiratory: Clear to auscultation bilaterally Cardiovascular: regular rate and rhythm, no obvious murmurs Gastrointestinal: non-tender to palpation, bowel sounds heard. Neurological: Moves all extremities spontaneously musculoskeletal: R shoulder mildly erythematous with edema, mild tenderness with palpation Results Result Diagram: 02/23/17 0505 02/23/17 0505 Results 24 hrs Laboratory Tests Test 02/23/17 05:05 White Blood Count 6.2 # Red Blood Count 3.80 L Hemoglobin 10.5 L Hematocrit 33.1 L Mean Corpuscular Volume 87.1 Mean Corpuscular Hemoglobin 27.6 L Mean Corpuscular Hemoglobin Concent 31.7 L Red Cell Distribution Width 14.7 H Platelet Count 329 Mean Platelet Volume 9.3 Neutrophils % 62.3 Lymphocytes % 19.0 Monocytes % 15.2 H Eosinophils % 1.9 Basophils % 0.8 Nucleated Red Blood Cells % 0.0 Neutrophils # 3.8 Lymphocytes # 1.2 Monocytes # 0.9 Eosinophils # 0.1 Basophils # 0.1 Nucleated Red Blood Cells # 0.0 Sodium Level 135 Potassium Level 4.0 Chloride Level 97 Carbon Dioxide Level 31 Anion Gap 11 Blood Urea Nitrogen 15 Creatinine 0.92 Glucose Level 93 Calcium Level 8.2 L Phosphorus Level 4.0 Magnesium Level 2.1 Medications Medications Current Medications Meropenem/Sodium Chloride (Merrem 1 Gm/50 ml (Pmx)) 50 ml @ 100 mls/hr Q12 IVPB Last administered on 02/23/17 10:20; Admin Dose 100 MLS/HR; Start 02/20 at 21:00 Amlodipine Besylate (Norvasc) 10 mg DAILY PO Last administered on 02/23/17 08 :53; Admin Dose 10 MG; Start 02/20/17 at 17:30 Atorvastatin Calcium (Lipitor) 40 mg QHS PO Last administered on 02/22/17 20: 32; Admin Dose 40 MG; Start 02/20/17 at 21:00 Metoprolol Tartrate (Lopressor) 50 mg BID PO Last administered on 02/23/17 08 :53; Admin Dose 50 MG; Start 02/20/17 at 21:00 Benazepril HCl (Lotensin) 40 mg DAILY PO Last administered on 02/23/17 08:53 ; Admin Dose 40 MG; Start 02/21/17 at 09:00 Hydralazine HCl (Apresoline) 10 mg Q4H PRN IV sbp>160 Last administered on 18:38; Admin Dose 10 MG; Start 02/20/17 at 17:30 Lorazepam (Ativan) 0.5 mg Q8H PRN PO ANXIETY Last administered on 02/23/17 05 :22; Admin Dose 0.5 MG; Start 02/20/17 at 18:00 Ondansetron HCl (Zofran Inj) 4 mg Q6H PRN IV NAUSEA AND/OR VOMITING; Start at 18:00 Acetaminophen (Tylenol Tab) 650 mg Q6H PRN PO PAIN LEVEL 1-3 OR FEVER; Start 02/20/17 at 18:00 Acetaminophen/ Hydrocodone Bitart ([place] (5/325)) 1 tab Q6H PRN PO PAIN LEVEL 4 -6 Last administered on 02/23/17 10:20; Admin Dose 1 TAB; Start 02/20/17 at 18:00 Bisacodyl (Dulcolax) 5 mg DAILY PRN PO CONSTIPATION; Start 02/20/17 at 18:00 Pantoprazole (Protonix Tab) 40 mg DAILY@06 PO Last administered on 02/23/17 05:22; Admin Dose 40 MG; Start 02/21/17 at 06:00 Heparin Sodium (Porcine) (Heparin (5000 Units/0.5 ml)) 5,000 unit Q8 SC Last administered on 02/23/17 05:23; Admin Dose 5,000 UNIT; Start 02/20/17 at 22: 00 Nicotine (Nicoderm 14 Mg/ 24hr) 1 patch DAILY PRN TRANSDERM smoking; Start at 18:00 Lorazepam 2 mg 2 mg Q10MIN PRN IV seizure; Start 02/20/17 at 18:00 Vancomycin HCl/ Sodium Chloride (Vancocin/NS) 250 ml @ 83.333 mls/ hr Q12H IVPB Last administered on 02/23/17 05:25; Admin Dose 83.333 MLS/HR; Start at 18:00 Morphine Sulfate (morphine) 2 mg Q2H PRN IV PAIN LEVEL 7-10 Last administered on 02/23/17 08:52; Admin Dose 2 MG; Start 02/21/17 at 13:00 RADHA CRUZ MD Feb 23, 2017 10:30
[2017-02-23] MEDS ORDERED: SENNA/DOCUSATE NA (8.6MG/50MG) TAB PO PRN (11:00)
[2017-02-23] MEDS: HYDROmorphONE 0.5 MG/0.5 ML SYG IV PRN ×5 (11:33→23:06)
[2017-02-23] MEDS ORDERED: HYDROCODONE/APAP (5/325) TAB PO PRN (13:00)
[2017-02-23 15:26] VITALS: BP 153/72; RESP 18
--- NOTE | 2017-02-23 18:17 | PN ---
Date/Time of Note Date/Time of Note DATE: 02/23/17 TIME: 18:15 Assessment/Plan VTE Prophylaxis VTE Prophylaxis Intervention: ambulation Lines/Catheters IV Catheter Type (from Nrs): Saline Lock Urinary Cath still in place: No Assessment/Plan Assessment/Plan to OR thursday PM for removal of hardware, placement of antibiotic spacer. ID consult recommended to arrange home antibiotics recommendations. NPO after breakfast. Patient understands the risks and benefits of the procedure. Spoke with original surgeon, Dr. Magaña today and appopriate equipment ordered for the extraction of the [employer] shoulder implant. Al has been through this before with his left shoulder. Subjective 24 Hr Interval Summary Free Text/Dictation No acute events over night Exam/Review of Systems Vital Signs Vitals Vital Signs Date Time Temp Pulse Resp B/P Pulse Ox O2 Delivery O2 Flow Rate FiO2 02/23/17 15:26 97.8 77 18 153/72 96 02/20/17 18:32 Room Air Intake and Output 02/22/17 02/22/17 02/23/17 15:00 23:00 07:00 Intake Total 300 ml 2550 ml 1550 ml Balance 300 ml 2550 ml 1550 ml Exam Incision c/d/i TTP anterior shoulder NVI Cultures: Sensitive Staff Results Result Diagram: 02/23/17 0505 02/23/17 0505 Results 24 hrs Laboratory Tests Test 02/23/17 05:05 White Blood Count 6.2 # Red Blood Count 3.80 L Hemoglobin 10.5 L Hematocrit 33.1 L Mean Corpuscular Volume 87.1 Mean Corpuscular Hemoglobin 27.6 L Mean Corpuscular Hemoglobin Concent 31.7 L Red Cell Distribution Width 14.7 H Platelet Count 329 Mean Platelet Volume 9.3 Neutrophils % 62.3 Lymphocytes % 19.0 Monocytes % 15.2 H Eosinophils % 1.9 Basophils % 0.8 Nucleated Red Blood Cells % 0.0 Neutrophils # 3.8 Lymphocytes # 1.2 Monocytes # 0.9 Eosinophils # 0.1 Basophils # 0.1 Nucleated Red Blood Cells # 0.0 Sodium Level 135 Potassium Level 4.0 Chloride Level 97 Carbon Dioxide Level 31 Anion Gap 11 Blood Urea Nitrogen 15 Creatinine 0.92 Glucose Level 93 Calcium Level 8.2 L Phosphorus Level 4.0 Magnesium Level 2.1 Medications Medications Current Medications Meropenem/Sodium Chloride (Merrem 1 Gm/50 ml (Pmx)) 50 ml @ 100 mls/hr Q12 IVPB Last administered on 02/23/17 10:20; Admin Dose 100 MLS/HR; Start 02/20 at 21:00 Amlodipine Besylate (Norvasc) 10 mg DAILY PO Last administered on 02/23/17 08 :53; Admin Dose 10 MG; Start 02/20/17 at 17:30 Atorvastatin Calcium (Lipitor) 40 mg QHS PO Last administered on 02/22/17 20: 32; Admin Dose 40 MG; Start 02/20/17 at 21:00 Metoprolol Tartrate (Lopressor) 50 mg BID PO Last administered on 02/23/17 08 :53; Admin Dose 50 MG; Start 02/20/17 at 21:00 Benazepril HCl (Lotensin) 40 mg DAILY PO Last administered on 02/23/17 08:53 ; Admin Dose 40 MG; Start 02/21/17 at 09:00 Hydralazine HCl (Apresoline) 10 mg Q4H PRN IV sbp>160 Last administered on 18:38; Admin Dose 10 MG; Start 02/20/17 at 17:30 Lorazepam (Ativan) 0.5 mg Q8H PRN PO ANXIETY Last administered on 02/23/17 05 :22; Admin Dose 0.5 MG; Start 02/20/17 at 18:00 Ondansetron HCl (Zofran Inj) 4 mg Q6H PRN IV NAUSEA AND/OR VOMITING; Start at 18:00 Acetaminophen (Tylenol Tab) 650 mg Q6H PRN PO PAIN LEVEL 1-3 OR FEVER; Start 02/20/17 at 18:00 Bisacodyl (Dulcolax) 5 mg DAILY PRN PO CONSTIPATION; Start 02/20/17 at 18:00 Pantoprazole (Protonix Tab) 40 mg DAILY@06 PO Last administered on 02/23/17 05:22; Admin Dose 40 MG; Start 02/21/17 at 06:00 Heparin Sodium (Porcine) (Heparin (5000 Units/0.5 ml)) 5,000 unit Q8 SC Last administered on 02/23/17 15:11; Admin Dose 5,000 UNIT; Start 02/20/17 at 22: 00 Nicotine (Nicoderm 14 Mg/ 24hr) 1 patch DAILY PRN TRANSDERM smoking; Start at 18:00 Lorazepam 2 mg 2 mg Q10MIN PRN IV seizure; Start 02/20/17 at 18:00 Vancomycin HCl/ Sodium Chloride (Vancocin/NS) 250 ml @ 83.333 mls/ hr Q12H IVPB Last administered on 02/23/17 18:00; Admin Dose 83.333 MLS/HR; Start at 18:00 Morphine Sulfate (morphine) 2 mg Q2H PRN IV PAIN LEVEL 4-6 Last administered on 02/23/17 08:52; Admin Dose 2 MG; Start 02/21/17 at 13:00 Acetaminophen/ Hydrocodone Bitart ([place] (5/325)) 1 tab Q4H PRN PO PAIN LEVEL 4 -6; Start 02/23/17 at 13:00 Hydromorphone HCl (Dilaudid) 0.5 mg Q3H PRN IV PAIN LEVEL 7-10 Last administered on 02/23/17 18:01; Admin Dose 0.5 MG; Start 02/23/17 at 11:00 Senna/Docusate Sodium (Senokot-S) 1 tab Q12H PRN PO constipation; Start at 11:00 SARANYA JONES MD Feb 23, 2017 18:17
[2017-02-23] MEDS: ATORVASTATIN 40 MG TAB PO SCH (20:09)
[2017-02-23 20:11] VITALS: BP 134/68; RESP 19
[2017-02-24] VITALS (21 sets, daily range): BP systolic 114–148; BP diastolic 56–89; PULSE 94–104; RESP 16–24
[2017-02-24] MEDS: HYDROmorphONE 0.5 MG/0.5 ML SYG IV PRN ×5 (02:38→23:54)
[2017-02-24] MEDS: VANCOMYCIN 1.25 GM in SOD CHLORIDE 0.9% 250 ML IVPB SCH ×2 (05:34→18:00)
[2017-02-24] MEDS: PANTOPRAZOLE (EC) 40 MG TAB PO SCH (05:34)
[2017-02-24] MEDS: HEPARIN 5,000 UNIT/0.5 ML VIAL SC SCH ×3 (05:42→21:05)
[2017-02-24 05:54] LABS: BASOPHIL # 0.1 10^3/ul (0.0-0.1); BASOPHILS % 1.1 % (0.0-2.0); EOSINOPHILS # 0.1 10^3/ul (0.0-0.5); EOSINOPHILS % 1.6 % (0.0-7.0); HEMATOCRIT 33.1 % (42.0-52.0); HEMOGLOBIN 10.7 g/dl (14.0-18.0); LYMPHOCYTES # 1.4 10^3/ul (0.8-2.9); LYMPHOCYTES % 22.5 % (15.0-51.0); MEAN CORPUSCULAR HEMOGLOBIN 28.2 pg (29.0-33.0); MEAN CORPUSCULAR HGB CONC 32.3 g/dl (32.0-37.0); MEAN CORPUSCULAR VOLUME 87.1 fl (82.0-101.0); MEAN PLATELET VOLUME 9.6 fl (7.4-10.4); MONOCYTE # 1.1 10^3/ul (0.3-0.9); MONOCYTES % 17.3 % (0.0-11.0); NEUTROPHIL # 3.5 10^3/ul (1.6-7.5); PLATELET COUNT 379 10^3/UL (140-415); RED CELL DISTRIBUTION WIDTH 14.9 % (11.5-14.5); WHITE BLOOD COUNT 6.2 10^3/ul (4.8-10.8)
[2017-02-24 06:31] LABS: ALBUMIN 3.2 g/dl (3.3-4.9); CALCIUM 8.7 mg/dl (8.4-10.2); CREATININE 1.05 mg/dl (0.61-1.24); MAGNESIUM 2.2 mg/dl (1.7-2.5); PHOSPHORUS 3.9 mg/dl (2.5-4.9); POTASSIUM 4.7 mmol/L (3.5-5.1)
[2017-02-24] MEDS: BENAZEPRIL 40 MG TAB PO SCH (07:41)
[2017-02-24] MEDS: METOPROLOL 50 MG TAB PO SCH ×2 (07:41→21:00)
[2017-02-24] MEDS: AMLODIPINE 10 MG TAB PO SCH (07:42)
[2017-02-24] MEDS: MEROPENEM 1 GM/50ML(PMX) 50 ML IVPB SCH (09:56)
--- NOTE | 2017-02-24 10:56 | PN ---
Date/Time of Note Date/Time of Note DATE: 02/24/17 TIME: 10:56 Assessment/Plan VTE Prophylaxis VTE Prophylaxis Intervention: SCD's Lines/Catheters IV Catheter Type (from Nrs): Saline Lock Urinary Cath still in place: No Assessment/Plan Assessment/Plan 1. Right shoulder pain secondary to ?infected hardware - Ortho on board and consultation greatly appreciated. Plans for surgery today and patient kept NPO after 8am - Culture growing Staph Aureus and patient on Vancomycin - Remains afebrile with normal WBC - Pain control 2. Hypertensive urgency-resolved - Continue current medications and will adjust as needed 3. Anemia - Mild, continue to monitor 4. Hypokalemia- resolved - Continue to monitor 5. Tachycardia- resolved - Likely secondary to possible infection and pain - stable, monitor 6. Disposition - Surgery today Subjective 24 Hr Interval Summary Free Text/Dictation Patient still complaining of pain in right shoulder but no new complaints. No acute overnight events. Plans for surgery today and NPO since 8am. Exam/Review of Systems Vital Signs Vitals Vital Signs Date Time Temp Pulse Resp B/P Pulse Ox O2 Delivery O2 Flow Rate FiO2 02/24/17 07:37 98.1 85 148/74 97 02/24/17 02:00 19 02/20/17 18:32 Room Air Intake and Output 02/23/17 02/23/17 02/24/17 15:00 23:00 07:00 Intake Total 300 ml 1790 ml 1500 ml Balance 300 ml 1790 ml 1500 ml Exam General: Laying in bed. no acute distress when sitting still but pain in right shoulder with movement Mentation: Patient is alert and oriented 4, Head: Normocephalic atraumatic Neck: Supple, nontender, midline Respiratory: Clear to auscultation bilaterally Cardiovascular: regular rate and rhythm, no obvious murmurs Gastrointestinal: non-tender to palpation, bowel sounds heard. Neurological: Moves all extremities spontaneously musculoskeletal: R shoulder fluctuant area at site of incision, tenderness with palpation Results Result Diagram: 02/24/1713 02/24/17 0513 Results 24 hrs Laboratory Tests Test 02/24/17 05:13 White Blood Count 6.2 Red Blood Count 3.80 L Hemoglobin 10.7 L Hematocrit 33.1 L Mean Corpuscular Volume 87.1 Mean Corpuscular Hemoglobin 28.2 L Mean Corpuscular Hemoglobin Concent 32.3 Red Cell Distribution Width 14.9 H Platelet Count 379 Mean Platelet Volume 9.6 Neutrophils % 57.0 Lymphocytes % 22.5 Monocytes % 17.3 H Eosinophils % 1.6 Basophils % 1.1 Nucleated Red Blood Cells % 0.0 Neutrophils # 3.5 Lymphocytes # 1.4 Monocytes # 1.1 H Eosinophils # 0.1 Basophils # 0.1 Nucleated Red Blood Cells # 0.0 Sodium Level 135 Potassium Level 4.7 Chloride Level 96 L Carbon Dioxide Level 34 H Anion Gap 10 Blood Urea Nitrogen 15 Creatinine 1.05 Glucose Level 91 Calcium Level 8.7 Phosphorus Level 3.9 Magnesium Level 2.2 Albumin 3.2 L Medications Medications Current Medications Meropenem/Sodium Chloride (Merrem 1 Gm/50 ml (Pmx)) 50 ml @ 100 mls/hr Q12 IVPB Last administered on 02/24/17 09:56; Admin Dose 100 MLS/HR; Start 02/20 at 21:00 Amlodipine Besylate (Norvasc) 10 mg DAILY PO Last administered on 02/24/17 07 :42; Admin Dose 10 MG; Start 02/20/17 at 17:30 Atorvastatin Calcium (Lipitor) 40 mg QHS PO Last administered on 02/23/17 20: 09; Admin Dose 40 MG; Start 02/20/17 at 21:00 Metoprolol Tartrate (Lopressor) 50 mg BID PO Last administered on 02/24/17 07 :41; Admin Dose 50 MG; Start 02/20/17 at 21:00 Benazepril HCl (Lotensin) 40 mg DAILY PO Last administered on 02/24/17 07:41 ; Admin Dose 40 MG; Start 02/21/17 at 09:00 Hydralazine HCl (Apresoline) 10 mg Q4H PRN IV sbp>160 Last administered on 18:38; Admin Dose 10 MG; Start 02/20/17 at 17:30 Lorazepam (Ativan) 0.5 mg Q8H PRN PO ANXIETY Last administered on 02/23/17 05 :22; Admin Dose 0.5 MG; Start 02/20/17 at 18:00 Ondansetron HCl (Zofran Inj) 4 mg Q6H PRN IV NAUSEA AND/OR VOMITING; Start at 18:00 Acetaminophen (Tylenol Tab) 650 mg Q6H PRN PO PAIN LEVEL 1-3 OR FEVER; Start 02/20/17 at 18:00 Bisacodyl (Dulcolax) 5 mg DAILY PRN PO CONSTIPATION; Start 02/20/17 at 18:00 Pantoprazole (Protonix Tab) 40 mg DAILY@06 PO Last administered on 02/24/17 05:34; Admin Dose 40 MG; Start 02/21/17 at 06:00 Heparin Sodium (Porcine) (Heparin (5000 Units/0.5 ml)) 5,000 unit Q8 SC Last administered on 02/23/17 21:19; Admin Dose 5,000 UNIT; Start 02/20/17 at 22: 00 Nicotine (Nicoderm 14 Mg/ 24hr) 1 patch DAILY PRN TRANSDERM smoking; Start at 18:00 Lorazepam 2 mg 2 mg Q10MIN PRN IV seizure; Start 02/20/17 at 18:00 Vancomycin HCl/ Sodium Chloride (Vancocin/NS) 250 ml @ 83.333 mls/ hr Q12H IVPB Last administered on 02/24/17 05:34; Admin Dose 83.333 MLS/HR; Start at 18:00 Morphine Sulfate (morphine) 2 mg Q2H PRN IV PAIN LEVEL 4-6 Last administered on 02/23/17 08:52; Admin Dose 2 MG; Start 02/21/17 at 13:00 Acetaminophen/ Hydrocodone Bitart ([place] (5/325)) 1 tab Q4H PRN PO PAIN LEVEL 4 -6; Start 02/23/17 at 13:00 Hydromorphone HCl (Dilaudid) 0.5 mg Q3H PRN IV PAIN LEVEL 7-10 Last administered on 02/24/17 08:39; Admin Dose 0.5 MG; Start 02/23/17 at 11:00 Senna/Docusate Sodium (Senokot-S) 1 tab Q12H PRN PO constipation; Start at 11:00 Miscellaneous Information (*Rx Drug Level Order Reminder*) 1 ONCE ONCE XX ; Start 02/24/17 at 17:00; Stop 02/24/17 at 17:01 RADHA CRUZ MD Feb 24, 2017 10:56
[2017-02-24] MEDS: morphine 2 MG INJ IV PRN (11:09)
--- NOTE | 2017-02-24 14:26 | RADRPT ---
Vent Rate: 76 bpm RR Interval: 0 msec VA Interval: 128 msec QRS Duration: 88 msec QT Interval: 394 msec QTC Interval: 443 msec P-R-T [place]: 45 - 74 - 84 degrees Normal sinus rhythm Normal ECG Electronically Signed By: Shay Toribio [id number]
--- NOTE | 2017-02-24 15:42 | HPN ---
Date/Time of Note Date/Time of Note DATE: 02/24/17 TIME: 15:40 Interval H&P Admission Note Pt. seen H&P reviewed: No system changes Patient understands this is a staged procedure. Today is Stage one of two. Today will be removal of his existing implant, with placement of a temporary antibiotic stem/spacer. This will be revised again, at stage two with a permanent implant once his infection is cleared. Risks include pain bleeding infection scar damage to neurovascular structures, risk of anesthesia and . He is familiar with this procedure, as it happened to his left side. Informed consent obtained. SARANYA JONES MD Feb 24, 2017 15:42
[2017-02-24] MEDS ORDERED: MIDAZOLAM 1 MG/ML 2 ML INJ ONE (15:55)
[2017-02-24] MEDS ORDERED: ROPIVACAINE 0.5 % 30 ML VIAL ONE (16:08)
[2017-02-24] MEDS ORDERED: TOBRAMYCIN 1.2 GM POWDER ONE ×2 (16:32→17:17)
[2017-02-24] MEDS ORDERED: POLYMYXIN/BACITRACIN 1L IRRIG ONE ×2 (16:32→17:22)
[2017-02-24] MEDS ORDERED: VANCOMYCIN 1 GM INJ ONE ×2 (16:32→17:17)
[2017-02-24] MEDS ORDERED: PHENYLephrine (100 MCG/ML) 5ML SYG ONE (16:32)
--- NOTE | 2017-02-24 17:40 | CONS ---
DATE OF ADMISSION: 02/20/2017 DATE OF CONSULTATION: 02/24/2017 TYPE FOR CONSULTATION: Infectious disease. REASON FOR CONSULTATION: Antibiotic management. HISTORY OF PRESENT ILLNESS: Al Garnett is a 62-year-old male with numerous problems who comes in with a history of bilateral shoulder replacements and presents with worsening right shoulder pain an d probable effusion. His past problems include: 1. Bilateral shoulder replacement. 2. Hypertension. 3. Dyslipidemia. 4. Aortic dissection by history. 5. Aortic dissection graft. 6. Moderate to mild smoker. Acutely, the patient comes in with significant shoulder pain. On admission, his white count was 10. 4, H and H of 12.5 and 39.0, platelet count 336. BUN and creatinine are 5/0.76. The patient was st arted on vancomycin and meropenem, and right shoulder cultures grew out Staph aureus resistant to pe nicillin, sensitive to oxacillin. Blood cultures were negative. Chest x-ray: Post-thoracotomy tye nges without evidence for acute intrathoracic pathology or interval change. A left shoulder total a rthroplasty is in anatomic alignment. No radiographic evidence of acute osseous abnormality. PAST MEDICAL HISTORY: Operations as outlined. FAMILY HISTORY: Noncontributory. SOCIAL HISTORY: As noted, he is a mild to moderate smoker. He drinks occasionally. No drug abuse. ALLERGIES: NONE TO PENICILLIN, SULFA OR FOODS. MEDICATIONS: Per chart. REVIEW OF SYSTEMS: Noncontributory. PHYSICAL EXAMINATION: GENERAL: The patient is a well-developed, well-nourished male, alert, responsive, in no acute distr ess. VITAL SIGNS: Stable. He is afebrile. SKIN: Without generalized rash. HEENT: Within normal limits. NECK: Supple. LYMPH NODES: None palpable. CHEST: Decreased breath sounds at the bases. HEART: Without murmur or gallop. ABDOMEN: Soft, nontender, without organosplenomegaly or masses. EXTREMITIES: Right shoulder with mild erythema and edema on admission. RECTAL AND GENITAL: Deferred. NEUROLOGIC: No focal neurological abnormalities. IMPRESSION AND PLAN: The patient is currently to go to surgery for removal of the hardware and plac ement of an antibiotic bead spacer. Following this, the patient should receive 6 weeks of IV antibi otic therapy. Since the organism Staphylococcus aureus is oxacillin sensitive, he can be treated [facility] ceftriaxone at home 1 g q.24 or 2 g q.24 for 6 weeks and then his shoulder can be reaspirated and if there is no evidence of infection, then a permanent shoulder replacement can be placed. I will dictate my findings to the hospitalist. Dictated By: TIMO HERNANDEZ MD, JD/MARK Conf#: [id number] DID#: [id number] CC: Charles Burnham;*End*
[2017-02-24] MEDS ORDERED: TRANEXAMIC ACID 1,000 MG in SOD CHLORIDE 0.9% 100 ML IVPB ONE (18:00)
[2017-02-24] MEDS ORDERED: NEOSTIGMINE 3 MG/3 ML SYRINGE ONE (18:24)
[2017-02-24] MEDS ORDERED: LIDOCAINE 2% (SDV) 5 ML INJ ONE (18:24)
[2017-02-24] MEDS ORDERED: GLYCOPYRROLATE 0.4 MG INJ ONE (18:24)
[2017-02-24] MEDS ORDERED: ETOMIDATE 20 MG INJ ONE (18:24)
[2017-02-24] MEDS ORDERED: ONDANSETRON 4 MG INJ ONE (18:24)
[2017-02-24] MEDS ORDERED: ROCURONIUM 50 MG INJ ONE (18:24)
--- NOTE | 2017-02-24 18:32 | SIPON ---
Date/Time of Note Date/Time of Note DATE: 02/24/17 TIME: 18:29 Operative Report Preoperative Diagnosis Right shoulder arthroplasty infection Postoperative Diagnosis Same Operation/Procedure Performed Removal of humerus component, revision arthroplasty with antibiotic spacer and stem, irrigation and debridement. right shoulder Surgeon see signature line administrative assistant Michele Urrutia Anesthesia: general Estimated blood loss: 50 - 100 ml's Transfusion Required none Specimen Right shoulder arthroplasty explant Grafts/Implants Depoy size 6 stem, coated in antibiotic cement, and antibiotics beads Complications none SARANYA JONES MD Feb 24, 2017 18:31
[2017-02-24] MEDS ORDERED: HYDROmorphONE (0.2 MG/ML) 10ML SYG IV PRN (19:00)
[2017-02-24] MEDS ORDERED: FENTAnyl 50 MCG/ML VIAL IV PRN (19:00)
[2017-02-24] MEDS ORDERED: MEPERIDINE 25 MG INJ IV PRN (19:00)
[2017-02-24] MEDS ORDERED: NALOXONE (0.4 MG/ML) INJ IV PRN (19:00)
[2017-02-24] MEDS ORDERED: DIPHENHYDRAMINE 50 MG INJ IV PRN (19:00)
[2017-02-24] MEDS ORDERED: ONDANSETRON 4 MG INJ IV PRN (19:00)
[2017-02-24] MEDS: HYDROmorphONE (0.2 MG/ML) 10ML SYG IV PRN ×2 (19:12→19:38)
--- NOTE | 2017-02-24 20:06 | OPR ---
DATE OF OPERATION: 02/24/2017 SURGEON: Dr. Saranya Jones PRODUCT SAFETY LEAD: Dr. Jerome [facility] ANESTHESIOLOGIST: Dr. Amador ANESTHESIA: General with interscalene block. PREOPERATIVE DIAGNOSIS: Right shoulder arthroplasty infection. POSTOPERATIVE DIAGNOSIS: Right shoulder arthroplasty infection. OPERATION PERFORMED: 1. Revision of right total shoulder arthroplasty. 2. Excision and removal of existing infected shoulder arthroplasty. 3. Irrigation and debridement of right shoulder joint. 4. Placement of antibiotic dissolvable beads. BLOOD LOSS: 100 mL. IMPLANTS: DePuy size 6 humeral stem with antibiotic beads and antibiotic fashioned humeral head. INDICATIONS: Al is a patient who had previous shoulder arthroplasty done on both sides, and his left underwent revision infection many years ago. His right shoulder arthroplasty, which was perfor med in 2013, subsequently became infected and after risks and benefits of excision of the implant wa s explained to patient, including the need for a staged revision procedure, including today's first stage of excision and placement of a temporary antibiotic device and subsequent revision once his an tibiotic clears to a permanent implant. This was agreed upon and the risks and benefits of pain, bl eeding, infection, scar, damage to neurovascular structures, failure from the surgery or blood clots of upper extremities and lower extremities, pulmonary embolism, risk of anesthesia and were e xplained to the patient and he elected to proceed. DESCRIPTION OF PROCEDURE: The patient was marked and identified in the preoperative holdinghallie t to the operating room and placed supine on a regular operating room table and placed under general anesthesia with bony prominences well padded. He was ultimately placed in a beach chair device and his head was appropriately fashioned. His hips and knees were flexed appropriately, and antibiotic s were dosed and given to him at this time. His right upper extremity was prepped and draped in usu al sterile fashion and a timeout was performed. Incision was made over the previous deltopectoral i ncision and carried down to the interval, which was dissected and the subscapularis was found. The subscapularis was retracted and incised in order to access the shoulder joint. Immediately evident was a significant amount of purulent material within the shoulder joint itself and all this was petr julius. At this time, capsulectomy took place with excision of debris and redundant synovium and capsu le, and the humeral component was exposed with external rotation of the arm. At this time, the inst rumental use of instrumentation was used to remove the existing humeral component, first was the hea d and an extraction device for the metaphyseal piece, and subsequently the diaphyseal piece. Macarena ladd, at this time, all implants were removed. The entire shoulder joint underwent significant irri gation and debridement with a Pulsavac supervisor instrument repair device, and the shoulder joint was well cleaned. A t this time, on the back table, a size 6 stem DePuy implant was used to be the base for our antibiot ic spacer and premade molds were used to create a sized humeral head, which will be made of entirely antibiotic-eluting cement. Gentamicin and vancomycin were used as the antibiotics for this mix, an d additional was made for increasing the size of the stem. This was not placed in a press-fit shawn r in order to facilitate easy excision at stage II of his procedure. Once the humeral component was assembled, this was placed into the humeral canal and then the shoulder was reduced. At this time, a significant amount of antibiotic beads which were self-dissolving were placed into the shoulder j oint, and then the subscapularis was closed with 2-0 Ethibond. Final irrigation took place and the final closure was performed with a 3-0 Monocryl and subsequent nylon closure for the skin layer. St erile dressing was applied and the patient was placed in an abduction pillow sling and extubated in the operating room in good condition. Dictated By: SARANYA JONES MD AD/NTS Conf#: [id number] DID#: [id number] CC: KATIE JONES MD; JEROME ALMARAZ MD;*End*
[2017-02-24] MEDS: ATORVASTATIN 40 MG TAB PO SCH (20:59)
--- NOTE | 2017-02-25 01:33 | RADRPT ---
PROCEDURE: XR right shoulder. CLINICAL INDICATION: Postoperative right shoulder. TECHNIQUE: AP view of the right shoulder was performed. COMPARISON: SHOULDER 02/20/2017; TERRI SHOULDER 03/02/2014 FINDINGS: There is interval revision of a total arthroplasty of the right shoulder arthroplasty with anatomic alignment. No acute fracture or osseous lesion is identified. Degenerative change of the distal right clavicle is noted. The soft tissues are unremarkable. IMPRESSION: 1. Interval revision of a total arthroplasty of the right shoulder with anatomic alignment. 2. Degenerative changes of the distal right clavicle. RPTAT: HRSR Physician Conrado Date Time Electronically viewed and signed by Physician Conrado on 02/25/2017 01:32 RR/
[2017-02-25] MEDS: HYDROmorphONE 0.5 MG/0.5 ML SYG IV PRN ×3 (02:43→09:00)
[2017-02-25] MEDS: morphine 2 MG INJ IV PRN ×5 (04:29→23:00)
[2017-02-25] MEDS: PANTOPRAZOLE (EC) 40 MG TAB PO SCH (05:39)
[2017-02-25] MEDS: HEPARIN 5,000 UNIT/0.5 ML VIAL SC SCH ×3 (05:43→20:57)
[2017-02-25] MEDS ORDERED: VANCOMYCIN 750 MG in DEXTROSE 5% 150 ML IVPB SCH (06:00)
[2017-02-25 07:46] LABS: BASOPHIL # 0.1 10^3/ul (0.0-0.1); BASOPHILS % 0.7 % (0.0-2.0); EOSINOPHILS % 0.5 % (0.0-7.0); HEMOGLOBIN 9.4 g/dl (14.0-18.0); LYMPHOCYTES # 1.3 10^3/ul (0.8-2.9); LYMPHOCYTES % 17.4 % (15.0-51.0); MEAN CORPUSCULAR HEMOGLOBIN 27.6 pg (29.0-33.0); MEAN CORPUSCULAR HGB CONC 31.3 g/dl (32.0-37.0); MEAN CORPUSCULAR VOLUME 88.2 fl (82.0-101.0); MEAN PLATELET VOLUME 9.6 fl (7.4-10.4); MONOCYTES % 13.7 % (0.0-11.0); NEUTROPHIL # 5.1 10^3/ul (1.6-7.5); NEUTROPHILS % 67.2 % (39.0-77.0); PLATELET COUNT 356 10^3/UL (140-415); RED CELL DISTRIBUTION WIDTH 15.1 % (11.5-14.5); WHITE BLOOD COUNT 7.6 10^3/ul (4.8-10.8)
[2017-02-25 08:14] LABS: ALBUMIN 3.1 g/dl (3.3-4.9); CALCIUM 8.3 mg/dl (8.4-10.2); CREATININE 1.01 mg/dl (0.61-1.24); MAGNESIUM 1.8 mg/dl (1.7-2.5); PHOSPHORUS 4.2 mg/dl (2.5-4.9); POTASSIUM 4.7 mmol/L (3.5-5.1)
[2017-02-25 08:17] VITALS: BP 129/70; RESP 18
[2017-02-25] MEDS: AMLODIPINE 10 MG TAB PO SCH (08:59)
[2017-02-25] MEDS: METOPROLOL 50 MG TAB PO SCH ×2 (09:00→20:55)
[2017-02-25] MEDS: BENAZEPRIL 40 MG TAB PO SCH (09:00)
--- NOTE | 2017-02-25 14:07 | PN ---
Date/Time of Note Date/Time of Note DATE: 02/25/17 TIME: 14:07 Assessment/Plan VTE Prophylaxis VTE Prophylaxis Intervention: SCD's Lines/Catheters IV Catheter Type (from Nrsg): Peripheral IV Urinary Cath still in place: No Assessment/Plan Assessment/Plan 1. Right shoulder pain s/p removal of hardware - Ortho on board and consultation greatly appreciated. Patient to keep right arm in sling - Culture growing Staph Aureus and ID on board. consultation greatly appreciated. Patient will need 6 weeks for Ceftriaxone upon discharge. Will place PICC line in anticipation for discharge - Remains afebrile with normal WBC - Pain control 2. Hypertensive urgency-resolved - Continue current medications and will adjust as needed 3. Anemia - Mild, continue to monitor 4. Hypokalemia- resolved - Continue to monitor 5. Tachycardia- resolved - Likely secondary to possible infection and pain - stable, monitor 6. Disposition - Awaiting further recommendations from Orthopedic surgeon Subjective 24 Hr Interval Summary Free Text/Dictation Patient tolerated surgery well but still complaining of pain in right shoulder with movement. Encouraged to keep in sling when ambulating or moving around room. Per nursing patient requesting pain medications often. No acute overnight events. Exam/Review of Systems Vital Signs Vitals Vital Signs Date Time Temp Pulse Resp B/P Pulse Ox O2 Delivery O2 Flow Rate FiO2 02/25/17 08:17 98.3 97 18 129/70 91 02/24/17 21:12 Nasal Cannula 2.0 Intake and Output 02/24/17 02/24/17 02/25/17 15:00 23:00 07:00 Intake Total 300 ml 1420 ml 1500 ml Output Total 100 ml 1300 ml Balance 300 ml 1320 ml 200 ml Exam General: Laying in bed and distress with movement that appears exaggerated Mentation: Patient is alert and oriented 4, Head: Normocephalic atraumatic Neck: Supple, nontender, midline Respiratory: Clear to auscultation bilaterally Cardiovascular: regular rate and rhythm, no obvious murmurs Gastrointestinal: non-tender to palpation, bowel sounds heard. Neurological: Moves all extremities spontaneously musculoskeletal: R shoulder tenderness to palpation Results Result Diagram: 02/25/17 0709 02/25/17 0709 Results 24 hrs Laboratory Tests Test 02/24/17 18:50 02/25/17 07:09 Vancomycin Level Trough 18.7 White Blood Count 7.6 # Red Blood Count 3.40 L Hemoglobin 9.4 L Hematocrit 30.0 L Mean Corpuscular Volume 88.2 Mean Corpuscular Hemoglobin 27.6 L Mean Corpuscular Hemoglobin Concent 31.3 L Red Cell Distribution Width 15.1 H Platelet Count 356 Mean Platelet Volume 9.6 Neutrophils % 67.2 Lymphocytes % 17.4 Monocytes % 13.7 H Eosinophils % 0.5 Basophils % 0.7 Nucleated Red Blood Cells % 0.0 Neutrophils # 5.1 Lymphocytes # 1.3 Monocytes # 1.0 H Eosinophils # 0.0 Basophils # 0.1 Nucleated Red Blood Cells # 0.0 Sodium Level 131 L Potassium Level 4.7 Chloride Level 93 L Carbon Dioxide Level 31 Anion Gap 12 Blood Urea Nitrogen 13 Creatinine 1.01 Glucose Level 112 Calcium Level 8.3 L Phosphorus Level 4.2 Magnesium Level 1.8 Albumin 3.1 L Medications Medications Current Medications Amlodipine Besylate (Norvasc) 10 mg DAILY PO Last administered on 02/25/17 08 :59; Admin Dose 10 MG; Start 02/20/17 at 17:30 Atorvastatin Calcium (Lipitor) 40 mg QHS PO Last administered on 02/24/17 20: 59; Admin Dose 40 MG; Start 02/20/17 at 21:00 Metoprolol Tartrate (Lopressor) 50 mg BID PO Last administered on 02/25/17 09 :00; Admin Dose 50 MG; Start 02/20/17 at 21:00 Benazepril HCl (Lotensin) 40 mg DAILY PO Last administered on 02/25/17 09:00 ; Admin Dose 40 MG; Start 02/21/17 at 09:00 Hydralazine HCl (Apresoline) 10 mg Q4H PRN IV sbp>160 Last administered on 18:38; Admin Dose 10 MG; Start 02/20/17 at 17:30 Lorazepam (Ativan) 0.5 mg Q8H PRN PO ANXIETY Last administered on 02/23/17 05 :22; Admin Dose 0.5 MG; Start 02/20/17 at 18:00 Ondansetron HCl (Zofran Inj) 4 mg Q6H PRN IV NAUSEA AND/OR VOMITING Last administered on 02/24/17 19:13; Admin Dose 4 MG; Start 02/20/17 at 18:00 Acetaminophen (Tylenol Tab) 650 mg Q6H PRN PO PAIN LEVEL 1-3 OR FEVER; Start 02/20/17 at 18:00 Bisacodyl (Dulcolax) 5 mg DAILY PRN PO CONSTIPATION; Start 02/20/17 at 18:00 Pantoprazole (Protonix Tab) 40 mg DAILY@06 PO Last administered on 02/25/17 05:39; Admin Dose 40 MG; Start 02/21/17 at 06:00 Heparin Sodium (Porcine) (Heparin (5000 Units/0.5 ml)) 5,000 unit Q8 SC Last administered on 02/25/17 05:43; Admin Dose 5,000 UNIT; Start 02/20/17 at 22: 00 Nicotine (Nicoderm 14 Mg/ 24hr) 1 patch DAILY PRN TRANSDERM smoking; Start at 18:00 Lorazepam (Ativan) 2 mg Q10MIN PRN IV seizure; Start 02/20/17 at 18:00 Morphine Sulfate (morphine) 2 mg Q2H PRN IV PAIN LEVEL 4-6 Last administered on 02/25/17 12:14; Admin Dose 2 MG; Start 02/21/17 at 13:00 Acetaminophen/ Hydrocodone Bitart ([place] (5/325)) 1 tab Q4H PRN PO PAIN LEVEL 4 -6 Last administered on 02/25/17 11:21; Admin Dose 1 TAB; Start 02/23/17 at 13:00 Senna/Docusate Sodium 1 tab 1 tab Q12H PRN PO constipation; Start 02/23/17 at 11:00 Vancomycin HCl/ Dextrose/Water (Vancocin/D5W) 150 ml @ 75 mls/hr Q12H IVPB Last administered on 02/25/17 05:42; Admin Dose 75 MLS/HR; Start 02/25/17 at 06:00 Miscellaneous Information (*Rx Drug Level Order Reminder*) VANCO TROUGH @ 1, 700 ON ... ONCE ONCE XX ; Start 02/26/17 at 17:00; Stop 02/26/17 at 17:01 Acetaminophen/ Hydrocodone Bitart ([place] (10/325)) 1 tab Q4H PRN PO SEVERE PAIN LEVEL 7-10; Start 02/25/17 at 14:00; Status RADHA KAUR MD Feb 25, 2017 14:07
[2017-02-25] MEDS: HYDROCODONE/APAP (10/325) TAB PO PRN ×2 (15:15→20:55)
--- NOTE | 2017-02-25 15:29 | PN ---
DATE: 02/25/2017 SUBJECTIVE: No events overnight. The patient is alert, complaining of right shoulder pain. He is ambulating in the room. No fevers. He is in no distress. LABORATORY DATA: WBC today 7.6, no shift, no bands. BUN 13, creatinine 1.01. MICROBIOLOGY: Right shoulder and blood culture growing Staphylococcus aureus. Repeat blood culture s preliminary negative. ANTIMICROBIALS: The patient is on IV vancomycin. PHYSICAL EXAMINATION: GENERAL: Well-developed, elderly white man who is alert, in no distress. HEENT: Head atraumatic, normocephalic. Sclerae anicteric. Buccal mucosa pink. NECK: Supple. CHEST: Rise symmetrical. Breath sounds clear. HEART: S1, S2. ABDOMEN: Soft, bowel tones present. EXTREMITIES: With right shoulder dressing clean, dry and intact. SKIN: No jaundice, rashes, cyanosis. ASSESSMENT: 1. Right shoulder infected arthroplasty, status post surgical intervention with revision arthroplas ty, removal of humerus component and placement of antibiotic spacer, postop day #1. 2. Oxacillin sensitive Staphylococcus aureus bacteremia secondary to above. 3. Hypertension. 4. History of bilateral shoulder replacement. PLAN: The patient remains stable. He is allergic to penicillin and sulfa. He was previously on IV Rocephin without any allergic reaction. We are going to discontinue vancomycin and start him on Ro cephin for coverage of oxacillin-sensitive Staphylococcus aureus. Patient to continue on antibiotic s for 6 weeks. Follow with ortho for further recommendations. Dictated By: MICHELE COUCH DIE CAST ENGINEER for TIMO WHEELER/MARK Conf#: [id number] DID#: [id number]
[2017-02-25] MEDS: CEFTRIAXONE 2 GM/50 ML (PMX) 50 ML IVPB SCH (16:30)
[2017-02-25 20:28] VITALS: BP 129/70; RESP 20
[2017-02-25] MEDS: ATORVASTATIN 40 MG TAB PO SCH (20:55)
[2017-02-26 02:00] VITALS: BP 135/62; RESP 19
[2017-02-26] MEDS: HYDROCODONE/APAP (10/325) TAB PO PRN (03:00)
[2017-02-26] MEDS: morphine 2 MG INJ IV PRN (05:16)
[2017-02-26] MEDS: PANTOPRAZOLE (EC) 40 MG TAB PO SCH (06:05)
[2017-02-26] MEDS: HEPARIN 5,000 UNIT/0.5 ML VIAL SC SCH ×3 (06:08→21:26)
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
[2017-02-26 06:30] LABS: BASOPHILS % 0.4 % (0.0-2.0); EOSINOPHILS # 0.1 10^3/ul (0.0-0.5); EOSINOPHILS % 1.8 % (0.0-7.0); HEMATOCRIT 27.2 % (42.0-52.0); HEMOGLOBIN 8.8 g/dl (14.0-18.0); LYMPHOCYTES # 0.9 10^3/ul (0.8-2.9); LYMPHOCYTES % 10.8 % (15.0-51.0); MEAN CORPUSCULAR HEMOGLOBIN 28.2 pg (29.0-33.0); MEAN CORPUSCULAR HGB CONC 32.4 g/dl (32.0-37.0); MEAN CORPUSCULAR VOLUME 87.2 fl (82.0-101.0); MEAN PLATELET VOLUME 9.6 fl (7.4-10.4); MONOCYTE # 0.6 10^3/ul (0.3-0.9); MONOCYTES % 7.1 % (0.0-11.0); NEUTROPHIL # 6.3 10^3/ul (1.6-7.5); NEUTROPHILS % 79.4 % (39.0-77.0); PLATELET COUNT 370 10^3/UL (140-415); RED BLOOD COUNT 3.12 10^6/ul (4.70-6.10); WHITE BLOOD COUNT 7.9 10^3/ul (4.8-10.8)
--- NOTE | 2017-02-26 07:01 | PN ---
Date/Time of Note Date/Time of Note DATE: 02/26/17 TIME: 07:00 Assessment/Plan VTE Prophylaxis VTE Prophylaxis Intervention: ambulation Lines/Catheters IV [facility]ter [facility]from [facility]): Saline Lock Urinary Cath still in place: No Assessment/Plan Assessment/Plan Patient may be discharged with home antibiotics. Subjective 24 Hr Interval Summary Free Text/Dictation no acute events over night Exam/Review of Systems Vital Signs Vitals Vital Signs Date Time Temp Pulse Resp B/P Pulse Ox O2 Delivery O2 Flow Rate FiO2 02/26/17 02:00 99.2 84 19 135/62 92 02/24/17 21:12 Nasal Cannula 2.0 Intake and Output 02/25/17 02/25/17 02/26/17 15:00 23:00 07:00 Intake Total 150 ml 50 ml 480 ml Output Total 800 ml Balance 150 ml 50 ml -320 ml Exam dressing c/d/i NVI patient comfortable Results Result Diagram: 02/26/17 0553 02/25/17 0709 Results 24 hrs Laboratory Tests Test 02/25/17 07:09 02/26/17 05:53 White Blood Count 7.6 # 7.9 Red Blood Count 3.40 L 3.12 L Hemoglobin 9.4 L 8.8 L Hematocrit 30.0 L 27.2 L Mean Corpuscular Volume 88.2 87.2 Mean Corpuscular Hemoglobin 27.6 L 28.2 L Mean Corpuscular Hemoglobin Concent 31.3 L 32.4 Red Cell Distribution Width 15.1 H 15.0 H Platelet Count 356 370 Mean Platelet Volume 9.6 9.6 Neutrophils % 67.2 79.4 H Lymphocytes % 17.4 10.8 L Monocytes % 13.7 H 7.1 Eosinophils % 0.5 1.8 Basophils % 0.7 0.4 Nucleated Red Blood Cells % 0.0 0.0 Neutrophils # 5.1 6.3 Lymphocytes # 1.3 0.9 Monocytes # 1.0 H 0.6 Eosinophils # 0.0 0.1 Basophils # 0.1 0.0 Nucleated Red Blood Cells # 0.0 0.0 Sodium Level 131 L Potassium Level 4.7 Chloride Level 93 L Carbon Dioxide Level 31 Anion Gap 12 Blood Urea Nitrogen 13 Creatinine 1.01 Glucose Level 112 Calcium Level 8.3 L Phosphorus Level 4.2 Magnesium Level 1.8 Albumin 3.1 L Medications Medications Current Medications Amlodipine Besylate (Norvasc) 10 mg DAILY PO Last administered on 02/25/17 08 :59; Admin Dose 10 MG; Start 02/20/17 at 17:30 Atorvastatin Calcium (Lipitor) 40 mg QHS PO Last administered on 02/25/17 20: 55; Admin Dose 40 MG; Start 02/20/17 at 21:00 Metoprolol Tartrate (Lopressor) 50 mg BID PO Last administered on 02/25/17 20 :55; Admin Dose 50 MG; Start 02/20/17 at 21:00 Benazepril HCl (Lotensin) 40 mg DAILY PO Last administered on 02/25/17 09:00 ; Admin Dose 40 MG; Start 02/21/17 at 09:00 Hydralazine HCl (Apresoline) 10 mg Q4H PRN IV sbp>160 Last administered on 18:38; Admin Dose 10 MG; Start 02/20/17 at 17:30 Lorazepam (Ativan) 0.5 mg Q8H PRN PO ANXIETY Last administered on 02/23/17 05 :22; Admin Dose 0.5 MG; Start 02/20/17 at 18:00 Ondansetron HCl (Zofran Inj) 4 mg Q6H PRN IV NAUSEA AND/OR VOMITING Last administered on 02/24/17 19:13; Admin Dose 4 MG; Start 02/20/17 at 18:00 Acetaminophen (Tylenol Tab) 650 mg Q6H PRN PO PAIN LEVEL 1-3 OR FEVER; Start 02/20/17 at 18:00 Bisacodyl (Dulcolax) 5 mg DAILY PRN PO CONSTIPATION; Start 02/20/17 at 18:00 Pantoprazole (Protonix Tab) 40 mg DAILY@06 PO Last administered on 02/26/17 06:05; Admin Dose 40 MG; Start 02/21/17 at 06:00 Heparin Sodium (Porcine) (Heparin (5000 Units/0.5 ml)) 5,000 unit Q8 SC Last administered on 02/26/17 06:08; Admin Dose 5,000 UNIT; Start 02/20/17 at 22: 00 Nicotine (Nicoderm 14 Mg/ 24hr) 1 patch DAILY PRN TRANSDERM smoking; Start at 18:00 Lorazepam (Ativan) 2 mg Q10MIN PRN IV seizure; Start 02/20/17 at 18:00 Senna/Docusate Sodium 1 tab 1 tab Q12H PRN PO constipation; Start 02/23/17 at 11:00 Ceftriaxone Sodium (Rocephin) 50 ml @ 100 mls/hr Q24H IVPB Last administered on 02/25/17t 16:30; Admin Dose 100 MLS/HR; Start 02/25/17 at 16:00 Hydromorphone HCl 0.1 MG/HR CONTINUOUS RATE ... Q4PCA IV ; Start 02/26/17 at 06 :30 Acetaminophen (Ofirmev 1000mg/ 100ml Iv) 100 ml @ 400 mls/hr Q6H IVPB ; Start 02/26/17 at 06:30 Gabapentin (Neurontin) 200 mg TID PO ; Start 02/26/17 at 09:00 SARANYA JONES MD Feb 26, 2017 07:01
[2017-02-26 07:03] LABS: ALBUMIN 2.8 g/dl (3.3-4.9); CALCIUM 8.2 mg/dl (8.4-10.2); CREATININE 1.05 mg/dl (0.61-1.24); MAGNESIUM 1.8 mg/dl (1.7-2.5); PHOSPHORUS 3.8 mg/dl (2.5-4.9); POTASSIUM 4.2 mmol/L (3.5-5.1)
[2017-02-26 08:06] VITALS: BP 136/67; RESP 18
[2017-02-26] MEDS: HYDROmorphONE 0.2 MG/ML PCA IV SCH ×2 (08:13→22:56)
[2017-02-26] MEDS: ACETAMINOPHEN 1000MG/100ML IV 100 ML IVPB SCH ×3 (08:17→18:38)
[2017-02-26] MEDS: BENAZEPRIL 40 MG TAB PO SCH (08:19)
[2017-02-26] MEDS: GABAPENTIN 100 MG CAP PO SCH ×3 (08:19→21:06)
[2017-02-26] MEDS: METOPROLOL 50 MG TAB PO SCH ×2 (08:19→21:07)
[2017-02-26] MEDS: AMLODIPINE 10 MG TAB PO SCH (08:19)
[2017-02-26] MEDS ORDERED: LIDOCAINE 1% (MPF) 5 ML VIAL SC ONE (09:30)
[2017-02-26] MEDS ORDERED: HYDROmorphONE 1 MG/ML SYG IV STA (10:02)
--- NOTE | 2017-02-26 10:12 | PN ---
Date/Time of Note Date/Time of Note DATE: 02/26/17 TIME: 10:12 Assessment/Plan VTE Prophylaxis VTE Prophylaxis Intervention: SCD's Lines/Catheters IV Catheter Type (from Nrsg): Saline Lock Urinary Cath still in place: No Assessment/Plan Assessment/Plan 1. Right shoulder pain s/p removal of hardware POD #2 - Ortho on board and consultation greatly appreciated. Patient to keep right arm in sling but has not been very compliant. Okay for discharge from their standpoints. Will need to follow up for placement of permanent hardware once infection clears - Culture growing Staph Aureus and ID on board. consultation greatly appreciated. Patient will need 6 weeks for Ceftriaxone upon discharge. PICC line placement today and will consult CM for assistance with placement since patient is homeless and requiring IV antibiotics after discharge - Remains afebrile with normal WBC - Pain control 2. Hypertensive urgency-resolved - Continue current medications and will adjust as needed 3. Anemia - Mild, continue to monitor 4. Hypokalemia- resolved - Continue to monitor 5. Tachycardia- resolved - Likely secondary to possible infection and pain - stable, monitor 6. Disposition - Will need placement since homeless and will require Ceftriaxone 2mg IV q 24 hours for 6 weeks total Subjective 24 Hr Interval Summary Free Text/Dictation Patient changed to [employer]MINISTRAT[employer] FELLOW pump this am but states still not experiencing enough relief from pain. Patient however appears comfortably and is non compliant in terms of not using his right shoulder. No acute overnight events. Exam/Review of Systems Vital Signs Vitals Vital Signs Date Time Temp Pulse Resp B/P Pulse Ox O2 Delivery O2 Flow Rate FiO2 02/26/17 08:06 98.7 80 18 136/67 93 02/24/17 21:12 Nasal Cannula 2.0 Intake and Output 02/25/17 02/25/17 02/26/17 15:00 23:00 07:00 Intake Total 150 ml 50 ml 480 ml Output Total 800 ml Balance 150 ml 50 ml -320 ml Exam General: Laying in bed and distress from pain that appears exaggerated Mentation: Patient is alert and oriented 4, Head: Normocephalic atraumatic Neck: Supple, nontender, midline Respiratory: Clear to auscultation bilaterally Cardiovascular: regular rate and rhythm, no obvious murmurs Gastrointestinal: non-tender to palpation, bowel sounds heard. Neurological: Moves all extremities spontaneously musculoskeletal: R shoulder tenderness to palpation Results Result Diagram: 02/26/17 0553 02/26/17 0553 Results 24 hrs Laboratory Tests Test 02/26/17 05:53 White Blood Count 7.9 Red Blood Count 3.12 L Hemoglobin 8.8 L Hematocrit 27.2 L Mean Corpuscular Volume 87.2 Mean Corpuscular Hemoglobin 28.2 L Mean Corpuscular Hemoglobin Concent 32.4 Red Cell Distribution Width 15.0 H Platelet Count 370 Mean Platelet Volume 9.6 Neutrophils % 79.4 H Lymphocytes % 10.8 L Monocytes % 7.1 Eosinophils % 1.8 Basophils % 0.4 Nucleated Red Blood Cells % 0.0 Neutrophils # 6.3 Lymphocytes # 0.9 Monocytes # 0.6 Eosinophils # 0.1 Basophils # 0.0 Nucleated Red Blood Cells # 0.0 Sodium Level 131 L Potassium Level 4.2 Chloride Level 95 L Carbon Dioxide Level 30 Anion Gap 10 Blood Urea Nitrogen 15 Creatinine 1.05 Glucose Level 118 Calcium Level 8.2 L Phosphorus Level 3.8 Magnesium Level 1.8 Albumin 2.8 L Medications Medications Current Medications Amlodipine Besylate (Norvasc) 10 mg DAILY PO Last administered on 02/26/17 08 :19; Admin Dose 10 MG; Start 02/20/17 at 17:30 Atorvastatin Calcium (Lipitor) 40 mg QHS PO Last administered on 02/25/17 20: 55; Admin Dose 40 MG; Start 02/20/17 at 21:00 Metoprolol Tartrate (Lopressor) 50 mg BID PO Last administered on 02/26/17 08 :19; Admin Dose 50 MG; Start 02/20/17 at 21:00 Benazepril HCl (Lotensin) 40 mg DAILY PO Last administered on 02/26/17 08:19 ; Admin Dose 40 MG; Start 02/21/17 at 09:00 Hydralazine HCl (Apresoline) 10 mg Q4H PRN IV sbp>160 Last administered on 18:38; Admin Dose 10 MG; Start 02/20/17 at 17:30 Lorazepam (Ativan) 0.5 mg Q8H PRN PO ANXIETY Last administered on 02/23/17 05 :22; Admin Dose 0.5 MG; Start 02/20/17 at 18:00 Ondansetron HCl (Zofran Inj) 4 mg Q6H PRN IV NAUSEA AND/OR VOMITING Last administered on 02/24/17 19:13; Admin Dose 4 MG; Start 02/20/17 at 18:00 Acetaminophen (Tylenol Tab) 650 mg Q6H PRN PO PAIN LEVEL 1-3 OR FEVER; Start 02/20/17 at 18:00 Bisacodyl (Dulcolax) 5 mg DAILY PRN PO CONSTIPATION; Start 02/20/17 at 18:00 Pantoprazole (Protonix Tab) 40 mg DAILY@06 PO Last administered on 02/26/17 06:05; Admin Dose 40 MG; Start 02/21/17 at 06:00 Heparin Sodium (Porcine) (Heparin (5000 Units/0.5 ml)) 5,000 unit Q8 SC Last administered on 02/26/17 06:08; Admin Dose 5,000 UNIT; Start 02/20/17 at 22: 00 Nicotine (Nicoderm 14 Mg/ 24hr) 1 patch DAILY PRN TRANSDERM smoking; Start at 18:00 Lorazepam (Ativan) 2 mg Q10MIN PRN IV seizure; Start 02/20/17 at 18:00 Senna/Docusate Sodium 1 tab 1 tab Q12H PRN PO constipation; Start 02/23/17 at 11:00 Ceftriaxone Sodium (Rocephin) 50 ml @ 100 mls/hr Q24H IVPB Last administered on 02/25/17 16:30; Admin Dose 100 MLS/HR; Start 02/25/17 at 16:00 Hydromorphone HCl 0.1 MG/HR CONTINUOUS RATE ... Q4PCA IV Last administered on 02/26/17 08:13; Admin Dose 6 MG; Start 02/26/17 at 06:30 Acetaminophen (Ofirmev 1000mg/ 100ml Iv) 100 ml @ 400 mls/hr Q6H IVPB Last administered on 02/26/17 08:17; Admin Dose 400 MLS/HR; Start 02/26/17 at 06: 30 Gabapentin (Neurontin) 200 mg TID PO Last administered on 02/26/17 08:19; Admin Dose 200 MG; Start 02/26/17 at 09:00 RADHA CRUZ MD Feb 26, 2017 10:12
--- NOTE | 2017-02-26 11:25 | CONS ---
Date/Time of Note Date/Time of Note DATE: 02/26/17 TIME: 11:23 Assessment/Plan Assessment/Plan Chief Complaint/Hosp Course SUBJECTIVE: No events overnight. No fevers. Looks comfortable. MICROBIOLOGY: Right shoulder and blood culture growing Staphylococcus aureus. Repeat blood cultures preliminary negative. ALL: PCN, Sulfa ANTIMICROBIALS: Rocephin PHYSICAL EXAMINATION: GENERAL: Well-developed, elderly white man who is alert, in no distress. HEENT: Head atraumatic, normocephalic. Sclerae anicteric. Buccal mucosa pink. NECK: Supple. CHEST: Rise symmetrical. Breath sounds clear. HEART: S1, S2. ABDOMEN: Soft, bowel tones present. EXTREMITIES: With right shoulder dressing clean, dry and intact. SKIN: No jaundice, rashes, cyanosis. ASSESSMENT: 1. Right shoulder DWIGHT infected arthroplasty, status post surgical intervention with revision arthroplasty, removal of humerus component and placement of antibiotic spacer, postop day #2. 2. Oxacillin sensitive Staphylococcus aureus bacteremia secondary to above. 3. Hypertension. 4. History of bilateral shoulder replacement. PLAN: The patient remains stable, repeat bld cx negative, continue abx for 6 weeks, f/u with ortho [facility] staff Problems: Consultation Date/Type/Reason Admit Date/Time Feb 20, 2017 at 16:35 Initial Consult Date Type of Consultation: id Exam/Review of Systems Vital Signs Vitals Vital Signs Date Time Temp Pulse Resp B/P Pulse Ox O2 Delivery O2 Flow Rate FiO2 02/26/17 08:06 98.7 80 18 136/67 93 02/24/17 21:12 Nasal Cannula 2.0 Intake and Output 02/25/17 02/25/17 02/26/17 15:00 23:00 07:00 Intake Total 150 ml 50 ml 480 ml Output Total 800 ml Balance 150 ml 50 ml -320 ml Results Result Diagram: 02/26/17 0553 02/26/17 0553 Results 24 hrs Laboratory Tests Test 02/26/17 05:53 White Blood Count 7.9 Red Blood Count 3.12 L Hemoglobin 8.8 L Hematocrit 27.2 L Mean Corpuscular Volume 87.2 Mean Corpuscular Hemoglobin 28.2 L Mean Corpuscular Hemoglobin Concent 32.4 Red Cell Distribution Width 15.0 H Platelet Count 370 Mean Platelet Volume 9.6 Neutrophils % 79.4 H Lymphocytes % 10.8 L Monocytes % 7.1 Eosinophils % 1.8 Basophils % 0.4 Nucleated Red Blood Cells % 0.0 Neutrophils # 6.3 Lymphocytes # 0.9 Monocytes # 0.6 Eosinophils # 0.1 Basophils # 0.0 Nucleated Red Blood Cells # 0.0 Sodium Level 131 L Potassium Level 4.2 Chloride Level 95 L Carbon Dioxide Level 30 Anion Gap 10 Blood Urea Nitrogen 15 Creatinine 1.05 Glucose Level 118 Calcium Level 8.2 L Phosphorus Level 3.8 Magnesium Level 1.8 Albumin 2.8 L Medications Medications Current Medications Amlodipine Besylate (Norvasc) 10 mg DAILY PO Last administered on 02/26/17 08 :19; Admin Dose 10 MG; Start 02/20/17 at 17:30 Atorvastatin Calcium (Lipitor) 40 mg QHS PO Last administered on 02/25/17 20: 55; Admin Dose 40 MG; Start 02/20/17 at 21:00 Metoprolol Tartrate (Lopressor) 50 mg BID PO Last administered on 02/26/17 08 :19; Admin Dose 50 MG; Start 02/20/17 at 21:00 Benazepril HCl (Lotensin) 40 mg DAILY PO Last administered on 02/26/17 08:19 ; Admin Dose 40 MG; Start 02/21/17 at 09:00 Hydralazine HCl (Apresoline) 10 mg Q4H PRN IV sbp>160 Last administered on 18:38; Admin Dose 10 MG; Start 02/20/17 at 17:30 Lorazepam (Ativan) 0.5 mg Q8H PRN PO ANXIETY Last administered on 02/23/17 05 :22; Admin Dose 0.5 MG; Start 02/20/17 at 18:00 Ondansetron HCl (Zofran Inj) 4 mg Q6H PRN IV NAUSEA AND/OR VOMITING Last administered on 02/24/17 19:13; Admin Dose 4 MG; Start 02/20/17 at 18:00 Acetaminophen (Tylenol Tab) 650 mg Q6H PRN PO PAIN LEVEL 1-3 OR FEVER; Start 02/20/17 at 18:00 Bisacodyl (Dulcolax) 5 mg DAILY PRN PO CONSTIPATION; Start 02/20/17 at 18:00 Pantoprazole (Protonix Tab) 40 mg DAILY@06 PO Last administered on 02/26/17 06:05; Admin Dose 40 MG; Start 02/21/17 at 06:00 Heparin Sodium (Porcine) (Heparin (5000 Units/0.5 ml)) 5,000 unit Q8 SC Last administered on 02/26/17 06:08; Admin Dose 5,000 UNIT; Start 02/20/17 at 22: 00 Nicotine (Nicoderm 14 Mg/ 24hr) 1 patch DAILY PRN TRANSDERM smoking; Start at 18:00 Lorazepam (Ativan) 2 mg Q10MIN PRN IV seizure; Start 02/20/17 at 18:00 Senna/Docusate Sodium 1 tab 1 tab Q12H PRN PO constipation; Start 02/23/17 at 11:00 Ceftriaxone Sodium (Rocephin) 50 ml @ 100 mls/hr Q24H IVPB Last administered on 02/25/17 16:30; Admin Dose 100 MLS/HR; Start 02/25/17 at 16:00 Hydromorphone HCl 0.1 MG/HR CONTINUOUS RATE ... Q4PCA IV Last administered on 02/26/17 08:13; Admin Dose 6 MG; Start 02/26/17 at 06:30 Acetaminophen (Ofirmev 1000mg/ 100ml Iv) 100 ml @ 400 mls/hr Q6H IVPB Last administered on 02/26/17 08:17; Admin Dose 400 MLS/HR; Start 02/26/17 at 06: 30 Gabapentin (Neurontin) 200 mg TID PO Last administered on 02/26/17 08:19; Admin Dose 200 MG; Start 02/26/17 at 09:00 MICHELE COUCH NP Feb 26, 2017 11:25
--- NOTE | 2017-02-26 12:51 | RADRPT ---
PROCEDURE: Ultrasound guidance for placement of needle in left upper extremity vein. CLINICAL INDICATION: Venous access. TECHNIQUE: Limited sonography of the left upper extremity was performed. Ultrasound images were recorded and s tored in the patient's medical record. COMPARISON: None. FINDINGS: The ultrasound images demonstrate a patent left upper extremity vein. The PICC line was inserted by the PICC line nurse. IMPRESSION: 1. Ultrasound guidance for a needle placement in a left upper extremity vein. 2. The left upper extremity vein is patent. RPTAT: QQ .Hans Palmer MD, MD Date Time Electronically viewed and signed by .Hans Palmer MD, MD on 02/26/2017 12:51 .R/
--- NOTE | 2017-02-26 13:54 | RADRPT ---
PROCEDURE: XR Chest. CLINICAL INDICATION: The line placement TECHNIQUE: Single portable view of the chest was obtained COMPARISON: SHOULDER 02/24/2017; SHOULDER 02/20/2017; CHEST 02/20/2017 FINDINGS: The trachea is midline. The cardiac silhouette is enlarged and pulmonary vascularity are within norm al limits. The lungs are clear. The costophrenic angles are sharp. Status post mediastinotomy. Bilat eral shoulder replacements are noted. Status post placement left-sided PICC line with distal tip in the SVC/atrial junction. IMPRESSION: 1. Cardiomegaly. No acute cardiopulmonary disease. Mediastinal postsurgical changes. 2. Status post placement left-sided PICC line with distal tip within the SVC/atrial junction. RPTAT: AAPP Physician Kelly Date Time Electronically viewed and signed by Soheila Amaral Physician on 02/26/2017 13:53 ESEQUIEL/
[2017-02-26 14:00] VITALS: BP 94/62; RESP 18
[2017-02-26] MEDS: CEFTRIAXONE 2 GM/50 ML (PMX) 50 ML IVPB SCH (17:49)
[2017-02-26] MEDS ORDERED: SOD CHLORIDE 0.9% 100 ML ONE (19:35)
[2017-02-26 20:21] VITALS: BP 130/71; RESP 22
[2017-02-26] MEDS: ATORVASTATIN 40 MG TAB PO SCH (21:06)
[2017-02-27] MEDS: ACETAMINOPHEN 1000MG/100ML IV 100 ML IVPB SCH ×4 (01:03→18:12)
[2017-02-27 02:02] VITALS: BP 120/77; RESP 20
[2017-02-27 05:17] LABS: BASOPHIL # 0.1 10^3/ul (0.0-0.1); BASOPHILS % 0.9 % (0.0-2.0); EOSINOPHILS # 0.3 10^3/ul (0.0-0.5); EOSINOPHILS % 3.4 % (0.0-7.0); HEMATOCRIT 27.5 % (42.0-52.0); HEMOGLOBIN 8.7 g/dl (14.0-18.0); LYMPHOCYTES # 1.2 10^3/ul (0.8-2.9); LYMPHOCYTES % 14.4 % (15.0-51.0); MEAN CORPUSCULAR HEMOGLOBIN 27.7 pg (29.0-33.0); MEAN CORPUSCULAR HGB CONC 31.6 g/dl (32.0-37.0); MEAN CORPUSCULAR VOLUME 87.6 fl (82.0-101.0); MEAN PLATELET VOLUME 9.5 fl (7.4-10.4); MONOCYTE # 0.8 10^3/ul (0.3-0.9); MONOCYTES % 10.3 % (0.0-11.0); NEUTROPHIL # 5.6 10^3/ul (1.6-7.5); NEUTROPHILS % 70.5 % (39.0-77.0); PLATELET COUNT 443 10^3/UL (140-415); RED BLOOD COUNT 3.14 10^6/ul (4.70-6.10); RED CELL DISTRIBUTION WIDTH 15.1 % (11.5-14.5)
[2017-02-27 05:37] LABS: ALBUMIN 3.1 g/dl (3.3-4.9); CALCIUM 9.1 mg/dl (8.4-10.2); CREATININE 1.11 mg/dl (0.61-1.24); PHOSPHORUS 4.4 mg/dl (2.5-4.9); POTASSIUM 4.3 mmol/L (3.5-5.1)
[2017-02-27] MEDS: PANTOPRAZOLE (EC) 40 MG TAB PO SCH (05:50)
[2017-02-27] MEDS: HEPARIN 5,000 UNIT/0.5 ML VIAL SC SCH ×3 (05:51→22:15)
[2017-02-27 07:52] VITALS: BP 157/83; RESP 22
[2017-02-27] MEDS: AMLODIPINE 10 MG TAB PO SCH (08:33)
[2017-02-27] MEDS: BENAZEPRIL 40 MG TAB PO SCH (08:33)
[2017-02-27] MEDS: GABAPENTIN 100 MG CAP PO SCH ×3 (08:33→20:33)
[2017-02-27] MEDS: METOPROLOL 50 MG TAB PO SCH ×2 (08:34→20:36)
--- NOTE | 2017-02-27 10:16 | PN ---
Date/Time of Note Date/Time of Note DATE: 02/27/17 TIME: 10:16 Assessment/Plan VTE Prophylaxis VTE Prophylaxis Intervention: SCD's Lines/Catheters IV Catheter Type (from Nrsg): PICC Line Central line still needed: Yes Urinary Cath still in place: No Assessment/Plan Assessment/Plan 1. Right shoulder pain s/p removal of hardware POD #3 - Ortho on board and consultation greatly appreciated. Patient to keep right arm in sling but has not been very compliant. Okay for discharge from their standpoints. Will need to follow up for placement of permanent hardware once infection clears - Culture growing Staph Aureus and ID on board. consultation greatly appreciated. Patient will need 6 weeks for Ceftriaxone upon discharge. PICC line in place and CM working on placement. Appreciate assistance - Repeat wound cultures are negative to date - Remains afebrile with normal WBC - Pain control 2. Hypertensive urgency-resolved - Continue current medications and will adjust as needed 3. Anemia, iron deficiency - Mild, continue to monitor - iron studies show very low iron levels. Started on iron supplement 4. Hypokalemia- resolved - Continue to monitor 5. Tachycardia- resolved - Likely secondary to possible infection and pain - stable, monitor 6. hyposmolar hyponatremia - improving after started PO diet again 7. Disposition - Will need placement since homeless and will require Ceftriaxone 2mg IV q 24 hours for 6 weeks total Subjective 24 Hr Interval Summary Free Text/Dictation Patient ambulating well and wearing sling while walking around unit. Still not compliant with giving right shoulder a rest. On [employer]IC[employer] pump and states not sufficient enough for pain control although does not appear in any acute distress. No acute overnight events. Exam/Review of Systems Vital Signs Vitals Vital Signs Date Time Temp Pulse Resp B/P Pulse Ox O2 Delivery O2 Flow Rate FiO2 02/27/17 07:52 97.3 89 22 157/83 97 02/26/17 22:30 Nasal Cannula 2.0 Intake and Output 02/26/17 02/26/17 02/27/17 14:59 22:59 06:59 Intake Total 200 ml 1190 ml 1050 ml Output Total 1350 ml Balance 200 ml 1190 ml -300 ml Exam General: walking around room in no acute distress Mentation: Patient is alert and oriented 4, Head: Normocephalic atraumatic Neck: Supple, nontender, midline Respiratory: Clear to auscultation bilaterally. no wheezes or rhonchi Cardiovascular: regular rate and rhythm, no obvious murmurs Gastrointestinal: non-tender to palpation, bowel sounds heard. no rebound or guarding Neurological: Moves all extremities spontaneously musculoskeletal: right shoulder incision clean and dry with no discharge or drainage. Results Result Diagram: 02/27/172 02/27/17 0432 Results 24 hrs Laboratory Tests Test 02/27/17 04:32 White Blood Count 8.0 Red Blood Count 3.14 L Hemoglobin 8.7 L Hematocrit 27.5 L Mean Corpuscular Volume 87.6 Mean Corpuscular Hemoglobin 27.7 L Mean Corpuscular Hemoglobin Concent 31.6 L Red Cell Distribution Width 15.1 H Platelet Count 443 H Mean Platelet Volume 9.5 Neutrophils % 70.5 Lymphocytes % 14.4 L Monocytes % 10.3 Eosinophils % 3.4 Basophils % 0.9 Nucleated Red Blood Cells % 0.0 Neutrophils # 5.6 Lymphocytes # 1.2 Monocytes # 0.8 Eosinophils # 0.3 Basophils # 0.1 Nucleated Red Blood Cells # 0.0 Sodium Level 134 L Potassium Level 4.3 Chloride Level 96 L Carbon Dioxide Level 31 Anion Gap 11 Blood Urea Nitrogen 15 Creatinine 1.11 Glucose Level 123 Calcium Level 9.1 Phosphorus Level 4.4 Magnesium Level 2.0 Albumin 3.1 L Medications Medications Current Medications Amlodipine Besylate (Norvasc) 10 mg DAILY PO Last administered on 02/27/17 08: 33; Admin Dose 10 MG; Start 02/20/17 at 17:30 Atorvastatin Calcium (Lipitor) 40 mg QHS PO Last administered on 02/26/17 21: 06; Admin Dose 40 MG; Start 02/20/17 at 21:00 Metoprolol Tartrate (Lopressor) 50 mg BID PO Last administered on 02/27/17 08: 34; Admin Dose 50 MG; Start 02/20/17 at 21:00 Benazepril HCl (Lotensin) 40 mg DAILY PO Last administered on 02/27/17 08:33; Admin Dose 40 MG; Start 02/21/17 at 09:00 Hydralazine HCl (Apresoline) 10 mg Q4H PRN IV sbp>160 Last administered on 18:38; Admin Dose 10 MG; Start 02/20/17 at 17:30 Lorazepam (Ativan) 0.5 mg Q8H PRN PO ANXIETY Last administered on 02/23/17 05 :22; Admin Dose 0.5 MG; Start 02/20/17 at 18:00 Ondansetron HCl (Zofran Inj) 4 mg Q6H PRN IV NAUSEA AND/OR VOMITING Last administered on 02/24/17 19:13; Admin Dose 4 MG; Start 02/20/17 at 18:00 Acetaminophen (Tylenol Tab) 650 mg Q6H PRN PO PAIN LEVEL 1-3 OR FEVER; Start 02/20/17 at 18:00 Bisacodyl (Dulcolax) 5 mg DAILY PRN PO CONSTIPATION; Start 02/20/17 at 18:00 Pantoprazole (Protonix Tab) 40 mg DAILY@06 PO Last administered on 02/27/17 05 :50; Admin Dose 40 MG; Start 02/21/17 at 06:00 Heparin Sodium (Porcine) (Heparin (5000 Units/0.5 ml)) 5,000 unit Q8 SC Last administered on 02/27/17 05:51; Admin Dose 5,000 UNIT; Start 02/20/17 at 22:00 Nicotine (Nicoderm 14 Mg/ 24hr) 1 patch DAILY PRN TRANSDERM smoking Last administered on 02/26/17 21:11; Admin Dose 1 PATCH; Start 02/20/17 at 18:00 Lorazepam (Ativan) 2 mg Q10MIN PRN IV seizure; Start 02/20/17 at 18:00 Senna/Docusate Sodium 1 tab 1 tab Q12H PRN PO constipation; Start 02/23/17 at 11:00 Ceftriaxone Sodium (Rocephin) 50 ml @ 100 mls/hr Q24H IVPB Last administered on 02/26/17 17:49; Admin Dose 100 MLS/HR; Start 02/25/17 at 16:00 Hydromorphone HCl 0.1 MG/HR CONTINUOUS RATE ... Q4PCA IV Last administered on 02/26/17 22:56; Admin Dose 6 MG; Start 02/26/17 at 06:30 Acetaminophen (Ofirmev 1000mg/ 100ml Iv) 100 ml @ 400 mls/hr Q6H IVPB Last administered on 02/27/17 05:49; Admin Dose 400 MLS/HR; Start 02/26/17 at 06:30 Gabapentin (Neurontin) 200 mg TID PO Last administered on 02/27/17t 08:33; Admin Dose 200 MG; Start 02/26/17 at 09:00 IV Flush (NS 10 ml) 10 ml PRN PRN IV IV PROTOCOL; Start 02/26/17 at 13:00 RADHA CRUZ MD Feb 27, 2017 10:16
[2017-02-27] MEDS: HYDROmorphONE 0.2 MG/ML PCA IV SCH (10:20)
[2017-02-27 10:36] LABS: IRON < 10 ug/dl (35-150)
[2017-02-27 10:44] LABS: TOTAL IRON BINDING CAPACITY 285 ug/dl (241-421)
--- NOTE | 2017-02-27 12:39 | CONS ---
Date/Time of Note Date/Time of Note DATE: 02/27/17 TIME: 12:38 Assessment/Plan Assessment/Plan Chief Complaint/Hosp Course SUBJECTIVE: No events overnight. No fevers. alert, looks comfortable. MICROBIOLOGY: Right shoulder and blood culture growing Staphylococcus aureus. Repeat blood cultures preliminary negative. ALL: PCN, Sulfa ANTIMICROBIALS: Rocephin PHYSICAL EXAMINATION: GENERAL: Well-developed, elderly white man who is alert, in no distress. HEENT: Head atraumatic, normocephalic. Sclerae anicteric. Buccal mucosa pink. NECK: Supple. CHEST: Rise symmetrical. Breath sounds clear. HEART: S1, S2. ABDOMEN: Soft, bowel tones present. EXTREMITIES: With right shoulder dressing clean, dry and intact. SKIN: No jaundice, rashes, cyanosis. ASSESSMENT: 1. Right shoulder DWIGHT infected arthroplasty, status post surgical intervention with revision arthroplasty, removal of humerus component and placement of antibiotic spacer, postop day #3. 2. Oxacillin sensitive Staphylococcus aureus bacteremia secondary to above. 3. Hypertension. 4. History of bilateral shoulder replacement. PLAN: The patient remains stable, repeat bld cx negative, continue abx for 6 weeks, f/u with ortho, s/p PICC DW staff Problems: Consultation Date/Type/Reason Admit Date/Time Feb 20, 2017 at 16:35 Type of Consultation: id Exam/Review of Systems Vital Signs Vitals Vital Signs Date Time Temp Pulse Resp B/P Pulse Ox O2 Delivery O2 Flow Rate FiO2 02/27/17 07:52 97.3 89 22 157/83 97 02/26/17 22:30 Nasal Cannula 2.0 Intake and Output 02/26/17 02/26/17 02/27/17 15:00 23:00 07:00 Intake Total 200 ml 1190 ml 1050 ml Output Total 1350 ml Balance 200 ml 1190 ml -300 ml Results Result Diagram: 02/27/17 0432 02/27/17 0432 Results 24 hrs Laboratory Tests Test 02/27/17 04:30 02/27/17 04:32 Iron Level < 10 L Total Iron Binding Capacity 285 Percent Iron Saturation White Blood Count 8.0 Red Blood Count 3.14 L Hemoglobin 8.7 L Hematocrit 27.5 L Mean Corpuscular Volume 87.6 Mean Corpuscular Hemoglobin 27.7 L Mean Corpuscular Hemoglobin Concent 31.6 L Red Cell Distribution Width 15.1 H Platelet Count 443 H Mean Platelet Volume 9.5 Neutrophils % 70.5 Lymphocytes % 14.4 L Monocytes % 10.3 Eosinophils % 3.4 Basophils % 0.9 Nucleated Red Blood Cells % 0.0 Neutrophils # 5.6 Lymphocytes # 1.2 Monocytes # 0.8 Eosinophils # 0.3 Basophils # 0.1 Nucleated Red Blood Cells # 0.0 Sodium Level 134 L Potassium Level 4.3 Chloride Level 96 L Carbon Dioxide Level 31 Anion Gap 11 Blood Urea Nitrogen 15 Creatinine 1.11 Glucose Level 123 Calcium Level 9.1 Phosphorus Level 4.4 Magnesium Level 2.0 Albumin 3.1 L Medications Medications Current Medications Amlodipine Besylate (Norvasc) 10 mg DAILY PO Last administered on 02/27/17 08: 33; Admin Dose 10 MG; Start 02/20/17 at 17:30 Atorvastatin Calcium (Lipitor) 40 mg QHS PO Last administered on 02/26/17 21: 06; Admin Dose 40 MG; Start 02/20/17 at 21:00 Metoprolol Tartrate (Lopressor) 50 mg BID PO Last administered on 02/27/17 08: 34; Admin Dose 50 MG; Start 02/20/17 at 21:00 Benazepril HCl (Lotensin) 40 mg DAILY PO Last administered on 02/27/17 08:33; Admin Dose 40 MG; Start 02/21/17 at 09:00 Hydralazine HCl (Apresoline) 10 mg Q4H PRN IV sbp>160 Last administered on 18:38; Admin Dose 10 MG; Start 02/20/17 at 17:30 Lorazepam (Ativan) 0.5 mg Q8H PRN PO ANXIETY Last administered on 02/23/17 05 :22; Admin Dose 0.5 MG; Start 02/20/17 at 18:00 Ondansetron HCl (Zofran Inj) 4 mg Q6H PRN IV NAUSEA AND/OR VOMITING Last administered on 02/24/17 19:13; Admin Dose 4 MG; Start 02/20/17 at 18:00 Acetaminophen (Tylenol Tab) 650 mg Q6H PRN PO PAIN LEVEL 1-3 OR FEVER; Start 02/20/17 at 18:00 Bisacodyl (Dulcolax) 5 mg DAILY PRN PO CONSTIPATION; Start 02/20/17 at 18:00 Pantoprazole (Protonix Tab) 40 mg DAILY@06 PO Last administered on 02/27/17 05 :50; Admin Dose 40 MG; Start 02/21/17 at 06:00 Heparin Sodium (Porcine) (Heparin (5000 Units/0.5 ml)) 5,000 unit Q8 SC Last administered on 02/27/17 05:51; Admin Dose 5,000 UNIT; Start 02/20/17 at 22:00 Nicotine (Nicoderm 14 Mg/ 24hr) 1 patch DAILY PRN TRANSDERM smoking Last administered on 02/26/17 21:11; Admin Dose 1 PATCH; Start 02/20/17 at 18:00 Lorazepam (Ativan) 2 mg Q10MIN PRN IV seizure; Start 02/20/17 at 18:00 Senna/Docusate Sodium 1 tab 1 tab Q12H PRN PO constipation; Start 02/23/17 at 11:00 Ceftriaxone Sodium (Rocephin) 50 ml @ 100 mls/hr Q24H IVPB Last administered on 02/26/17 17:49; Admin Dose 100 MLS/HR; Start 02/25/17 at 16:00 Hydromorphone HCl 0.1 MG/HR CONTINUOUS RATE ... Q4PCA IV Last administered on 02/27/17 10:20; Admin Dose 6 MG; Start 02/26/17 at 06:30 Acetaminophen (Ofirmev 1000mg/ 100ml Iv) 100 ml @ 400 mls/hr Q6H IVPB Last administered on 02/27/17 05:49; Admin Dose 400 MLS/HR; Start 02/26/17 at 06:30 Gabapentin (Neurontin) 200 mg TID PO Last administered on 02/27/17 08:33; Admin Dose 200 MG; Start 02/26/17 at 09:00 IV Flush (NS 10 ml) 10 ml PRN PRN IV IV PROTOCOL; Start 02/26/17 at 13:00 Ferrous Sulfate (Ferrous Sulfate (Ec)) 325 mg Q2D PO ; Start 02/27/17 at 12:00 MICHELE COUCH NP Feb 27, 2017 12:39
[2017-02-27] MEDS: FERROUS SULFATE (EC) 325 MG TAB PO SCH (13:01)
[2017-02-27 14:00] VITALS: BP 126/76; RESP 20
[2017-02-27] MEDS: CEFTRIAXONE 2 GM/50 ML (PMX) 50 ML IVPB SCH (17:06)
[2017-02-27] MEDS: ATORVASTATIN 40 MG TAB PO SCH (20:33)
[2017-02-28] MEDS: ACETAMINOPHEN 1000MG/100ML IV 100 ML IVPB SCH ×4 (01:20→17:59)
[2017-02-28] MEDS: HYDROmorphONE 0.2 MG/ML PCA IV SCH ×2 (04:02→17:36)
[2017-02-28] MEDS: PANTOPRAZOLE (EC) 40 MG TAB PO SCH (05:56)
[2017-02-28] MEDS: HEPARIN 5,000 UNIT/0.5 ML VIAL SC SCH ×3 (05:59→21:16)
[2017-02-28 06:09] LABS: BASOPHIL # 0.1 10^3/ul (0.0-0.1); BASOPHILS % 0.9 % (0.0-2.0); EOSINOPHILS # 0.3 10^3/ul (0.0-0.5); EOSINOPHILS % 3.4 % (0.0-7.0); HEMATOCRIT 28.4 % (42.0-52.0); HEMOGLOBIN 8.9 g/dl (14.0-18.0); LYMPHOCYTES # 1.2 10^3/ul (0.8-2.9); LYMPHOCYTES % 14.9 % (15.0-51.0); MEAN CORPUSCULAR HEMOGLOBIN 27.6 pg (29.0-33.0); MEAN CORPUSCULAR HGB CONC 31.3 g/dl (32.0-37.0); MEAN CORPUSCULAR VOLUME 87.9 fl (82.0-101.0); MEAN PLATELET VOLUME 10.7 fl (7.4-10.4); MONOCYTE # 0.7 10^3/ul (0.3-0.9); MONOCYTES % 8.6 % (0.0-11.0); NEUTROPHIL # 5.5 10^3/ul (1.6-7.5); NEUTROPHILS % 71.4 % (39.0-77.0); PLATELET COUNT 238 10^3/UL (140-415); RED BLOOD COUNT 3.23 10^6/ul (4.70-6.10); RED CELL DISTRIBUTION WIDTH 15.2 % (11.5-14.5); WHITE BLOOD COUNT 7.7 10^3/ul (4.8-10.8)
[2017-02-28 06:30] LABS: ALBUMIN 2.5 g/dl (3.3-4.9); CALCIUM 8.4 mg/dl (8.4-10.2); CREATININE 1.02 mg/dl (0.61-1.24); MAGNESIUM 1.9 mg/dl (1.7-2.5); PHOSPHORUS 3.9 mg/dl (2.5-4.9); POTASSIUM 4.5 mmol/L (3.5-5.1)
[2017-02-28] MEDS: METOPROLOL 50 MG TAB PO SCH ×2 (09:23→21:12)
[2017-02-28] MEDS: BENAZEPRIL 40 MG TAB PO SCH (09:23)
[2017-02-28] MEDS: GABAPENTIN 100 MG CAP PO SCH ×3 (09:24→23:03)
[2017-02-28] MEDS: AMLODIPINE 10 MG TAB PO SCH (09:24)
[2017-02-28 09:27] VITALS: BP 134/74; PULSE 74; RESP 17
--- NOTE | 2017-02-28 13:06 | CONS ---
Date/Time of Note Date/Time of Note DATE: 02/28/17 TIME: 13:01 Consultation Date/Type/Reason Admit Date/Time SUBJECTIVE: No events overnight. Deneis fevers. Pt is awake, alert and looks comfortable. VS: 134/74 P:74 R:17 SO2:96% T:98.0 LABS: WBC-7.7 H&H: 8.9/28/4 BMP-WNL. MICROBIOLOGY: Right shoulder and blood culture growing Staphylococcus aureus. Repeat blood cultures and wound cultures- negative. ALL: PCN, Sulfa Indwellings: PICC line. ANTIMICROBIALS: Rocephin PHYSICAL EXAMINATION: GENERAL: Well-developed, elderly white man who is alert, in no distress. HEENT: Head atraumatic, normocephalic. Sclerae anicteric. Buccal mucosa pink. NECK: Supple. CHEST: Rise symmetrical. Breath sounds clear. HEART: S1, S2. ABDOMEN: Soft, bowel tones present. EXTREMITIES: With right shoulder dressing clean, dry and intact. SKIN: No jaundice, rashes, cyanosis. ASSESSMENT: 1. Right shoulder DWIGHT infected arthroplasty, status post surgical intervention with revision arthroplasty, removal of humerus component and placement of antibiotic spacer, postop day #3. 2. Oxacillin sensitive Staphylococcus aureus bacteremia secondary to above. 3. Hypertension. 4. History of bilateral shoulder replacement. PLAN: The patient remains stable. Continue abx for 6 weeks, f/u with ortho. Initial Consult Date Type of Consultation: ID Exam/Review of Systems Vital Signs Vitals Vital Signs Date Time Temp Pulse Resp B/P Pulse Ox O2 Delivery O2 Flow Rate FiO2 02/28/17 09:27 98.0 74 17 134/74 96 Room Air 02/26/17 22:30 2.0 Intake and Output 02/27/17 02/27/17 02/28/17 14:59 22:59 06:59 Intake Total 100 ml 1550 ml 1150 ml Output Total 900 ml Balance 100 ml 1550 ml 250 ml Results Result Diagram: 02/28/17 0456 02/28/17 0456 Results 24 hrs Laboratory Tests Test 02/28/17 04:56 02/28/17 09:43 White Blood Count 7.7 Red Blood Count 3.23 L Hemoglobin 8.9 L Hematocrit 28.4 L Mean Corpuscular Volume 87.9 Mean Corpuscular Hemoglobin 27.6 L Mean Corpuscular Hemoglobin Concent 31.3 L Red Cell Distribution Width 15.2 H Platelet Count 238 # Mean Platelet Volume 10.7 H Neutrophils % 71.4 Lymphocytes % 14.9 L Monocytes % 8.6 Eosinophils % 3.4 Basophils % 0.9 Nucleated Red Blood Cells % 0.0 Neutrophils # 5.5 Lymphocytes # 1.2 Monocytes # 0.7 Eosinophils # 0.3 Basophils # 0.1 Nucleated Red Blood Cells # 0.0 Sodium Level 138 Potassium Level 4.5 Chloride Level 101 Carbon Dioxide Level 29 Anion Gap 13 Blood Urea Nitrogen 16 Creatinine 1.02 Glucose Level 123 Calcium Level 8.4 Phosphorus Level 3.9 Magnesium Level 1.9 Albumin 2.5 L Lab Scanned Report REFERENCE LAB Medications Medications Current Medications Amlodipine Besylate (Norvasc) 10 mg DAILY PO Last administered on 02/28/17 09: 24; Admin Dose 10 MG; Start 02/20/17 at 17:30 Atorvastatin Calcium (Lipitor) 40 mg QHS PO Last administered on 02/27/17 20: 33; Admin Dose 40 MG; Start 02/20/17 at 21:00 Metoprolol Tartrate (Lopressor) 50 mg BID PO Last administered on 02/28/17 09: 23; Admin Dose 50 MG; Start 02/20/17 at 21:00 Benazepril HCl (Lotensin) 40 mg DAILY PO Last administered on 02/28/17 09:23; Admin Dose 40 MG; Start 02/21/17 at 09:00 Hydralazine HCl (Apresoline) 10 mg Q4H PRN IV sbp>160 Last administered on 18:38; Admin Dose 10 MG; Start 02/20/17 at 17:30 Lorazepam (Ativan) 0.5 mg Q8H PRN PO ANXIETY Last administered on 02/23/17 05 :22; Admin Dose 0.5 MG; Start 02/20/17 at 18:00 Ondansetron HCl (Zofran Inj) 4 mg Q6H PRN IV NAUSEA AND/OR VOMITING Last administered on 02/24/17 19:13; Admin Dose 4 MG; Start 02/20/17 at 18:00 Acetaminophen (Tylenol Tab) 650 mg Q6H PRN PO PAIN LEVEL 1-3 OR FEVER; Start 02/20/17 at 18:00 Bisacodyl (Dulcolax) 5 mg DAILY PRN PO CONSTIPATION; Start 02/20/17 at 18:00 Pantoprazole (Protonix Tab) 40 mg DAILY@06 PO Last administered on 02/28/17 05 :56; Admin Dose 40 MG; Start 02/21/17 at 06:00 Heparin Sodium (Porcine) (Heparin (5000 Units/0.5 ml)) 5,000 unit Q8 SC Last administered on 02/28/17 05:59; Admin Dose 5,000 UNIT; Start 02/20/17 at 22:00 Nicotine (Nicoderm 14 Mg/ 24hr) 1 patch DAILY PRN TRANSDERM smoking Last administered on 02/26/17 21:11; Admin Dose 1 PATCH; Start 02/20/17 at 18:00 Lorazepam (Ativan) 2 mg Q10MIN PRN IV seizure; Start 02/20/17 at 18:00 Senna/Docusate Sodium 1 tab 1 tab Q12H PRN PO constipation; Start 02/23/17 at 11:00 Ceftriaxone Sodium (Rocephin) 50 ml @ 100 mls/hr Q24H IVPB Last administered on 02/27/17 17:06; Admin Dose 100 MLS/HR; Start 02/25/17 at 16:00 Hydromorphone HCl 0.1 MG/HR CONTINUOUS RATE ... Q4PCA IV Last administered on 02/28/17 04:02; Admin Dose 6 MG; Start 02/26/17 at 06:30 Acetaminophen (Ofirmev 1000mg/ 100ml Iv) 100 ml @ 400 mls/hr Q6H IVPB Last administered on 02/28/17 12:41; Admin Dose 400 MLS/HR; Start 02/26/17 at 06:30 Gabapentin (Neurontin) 200 mg TID PO Last administered on 02/28/17 12:40; Admin Dose 200 MG; Start 02/26/17 at 09:00 IV Flush (NS 10 ml) 10 ml PRN PRN IV IV PROTOCOL; Start 02/26/17 at 13:00 Ferrous Sulfate (Ferrous Sulfate (Ec)) 325 mg Q2D PO Last administered on 13:01; Admin Dose 325 MG; Start 02/27/17 at 12:00 HOLGER GILES Feb 28, 2017 13:06
[2017-02-28 14:46] VITALS: BP 110/65; RESP 20
--- NOTE | 2017-02-28 15:44 | PN ---
Date/Time of Note Date/Time of Note DATE: 02/28/17 TIME: 15:38 Assessment/Plan VTE Prophylaxis VTE Prophylaxis Intervention: SCD's Lines/Catheters IV Catheter Type (from Nrsg): PICC Line Central line still needed: Yes Urinary Cath still in place: No Assessment/Plan Assessment/Plan 1. Right shoulder pain s/p removal of hardware POD #4 - Ortho on board and consultation greatly appreciated. Patient to keep right arm in sling but has not been very compliant. Okay for discharge from their standpoints. Will need to follow up for placement of permanent hardware once infection resolved - Culture growing Staph Aureus and ID on board. consultation greatly appreciated. Patient will need 6 weeks for Ceftriaxone upon discharge. PICC line in place and CM working on placement. Appreciate assistance - Final repeat wound cultures negative - Remains afebrile with normal WBC - Pain control. Difficult to determine if patient really in pain or pain seeking. Will talk with both arms and stop occasionally complaining of pain which subsides in seconds. Appears comfortable during entire encounter 2. Hypertensive urgency-resolved - Continue current medications and will adjust as needed 3. Anemia, iron deficiency - Mild, continue to monitor - iron studies show very low iron levels. Started on iron supplement 4. Hypokalemia- resolved - Continue to monitor 5. Tachycardia- resolved - Likely secondary to possible infection and pain - stable, monitor 6. hyposmolar hyponatremia- resolved - improving after started PO diet again 7. Disposition - Will require Ceftriaxone 2mg IV q 24 hours for 6 weeks total - CM consulted for assistance with placement given currently homeless Subjective 24 Hr Interval Summary Free Text/Dictation Patient still complaining of uncontrolled pain but appears to be comfortable. Will talk with both hands and in no acute distress and then will yelp out in pain every so often although subsides in seconds. No acute overnight events. Exam/Review of Systems Vital Signs Vitals Vital Signs Date Time Temp Pulse Resp B/P Pulse Ox O2 Delivery O2 Flow Rate FiO2 02/28/17 14:46 98.0 64 20 110/65 98 02/28/17 09:27 Room Air 02/26/17 22:30 2.0 Intake and Output 02/27/17 02/27/17 02/28/17 15:00 23:00 07:00 Intake Total 100 ml 1550 ml 1150 ml Output Total 900 ml Balance 100 ml 1550 ml 250 ml Exam General: sitting up in bed in no acute distress, using both arms with talking and will stop due to pain in R shoulder but subsides in seconds Mentation: Patient is alert and oriented 4, Head: Normocephalic atraumatic Neck: Supple, nontender, midline Respiratory: Clear to auscultation bilaterally. no wheezes or rhonchi Cardiovascular: regular rate and rhythm, no obvious murmurs Gastrointestinal: non-tender to palpation, bowel sounds heard. no rebound or guarding Neurological: Moves all extremities spontaneously musculoskeletal: right shoulder incision clean and dry with no discharge or drainage. Results Result Diagram: 02/28/17 0456 02/28/17 0456 Results 24 hrs Laboratory Tests Test 02/28/17 04:56 02/28/17 09:43 White Blood Count 7.7 Red Blood Count 3.23 L Hemoglobin 8.9 L Hematocrit 28.4 L Mean Corpuscular Volume 87.9 Mean Corpuscular Hemoglobin 27.6 L Mean Corpuscular Hemoglobin Concent 31.3 L Red Cell Distribution Width 15.2 H Platelet Count 238 # Mean Platelet Volume 10.7 H Neutrophils % 71.4 Lymphocytes % 14.9 L Monocytes % 8.6 Eosinophils % 3.4 Basophils % 0.9 Nucleated Red Blood Cells % 0.0 Neutrophils # 5.5 Lymphocytes # 1.2 Monocytes # 0.7 Eosinophils # 0.3 Basophils # 0.1 Nucleated Red Blood Cells # 0.0 Sodium Level 138 Potassium Level 4.5 Chloride Level 101 Carbon Dioxide Level 29 Anion Gap 13 Blood Urea Nitrogen 16 Creatinine 1.02 Glucose Level 123 Calcium Level 8.4 Phosphorus Level 3.9 Magnesium Level 1.9 Albumin 2.5 L Lab Scanned Report REFERENCE LAB Medications Medications Current Medications Amlodipine Besylate (Norvasc) 10 mg DAILY PO Last administered on 02/28/17 09: 24; Admin Dose 10 MG; Start 02/20/17 at 17:30 Atorvastatin Calcium (Lipitor) 40 mg QHS PO Last administered on 02/27/17 20: 33; Admin Dose 40 MG; Start 02/20/17 at 21:00 Metoprolol Tartrate (Lopressor) 50 mg BID PO Last administered on 02/28/17 09: 23; Admin Dose 50 MG; Start 02/20/17 at 21:00 Benazepril HCl (Lotensin) 40 mg DAILY PO Last administered on 02/28/17 09:23; Admin Dose 40 MG; Start 02/21/17 at 09:00 Hydralazine HCl (Apresoline) 10 mg Q4H PRN IV sbp>160 Last administered on 18:38; Admin Dose 10 MG; Start 02/20/17 at 17:30 Lorazepam (Ativan) 0.5 mg Q8H PRN PO ANXIETY Last administered on 02/23/17 05 :22; Admin Dose 0.5 MG; Start 02/20/17 at 18:00 Ondansetron HCl (Zofran Inj) 4 mg Q6H PRN IV NAUSEA AND/OR VOMITING Last administered on 02/24/17 19:13; Admin Dose 4 MG; Start 02/20/17 at 18:00 Acetaminophen (Tylenol Tab) 650 mg Q6H PRN PO PAIN LEVEL 1-3 OR FEVER; Start 02/20/17 at 18:00 Bisacodyl (Dulcolax) 5 mg DAILY PRN PO CONSTIPATION; Start 02/20/17 at 18:00 Pantoprazole (Protonix Tab) 40 mg DAILY@06 PO Last administered on 02/28/17 05 :56; Admin Dose 40 MG; Start 02/21/17 at 06:00 Heparin Sodium (Porcine) (Heparin (5000 Units/0.5 ml)) 5,000 unit Q8 SC Last administered on 02/28/17 13:43; Admin Dose 5,000 UNIT; Start 02/20/17 at 22:00 Nicotine (Nicoderm 14 Mg/ 24hr) 1 patch DAILY PRN TRANSDERM smoking Last administered on 02/26/17 21:11; Admin Dose 1 PATCH; Start 02/20/17 at 18:00 Lorazepam (Ativan) 2 mg Q10MIN PRN IV seizure; Start 02/20/17 at 18:00 Senna/Docusate Sodium 1 tab 1 tab Q12H PRN PO constipation; Start 02/23/17 at 11:00 Ceftriaxone Sodium (Rocephin) 50 ml @ 100 mls/hr Q24H IVPB Last administered on 02/27/17 17:06; Admin Dose 100 MLS/HR; Start 02/25/17 at 16:00 Hydromorphone HCl 0.1 MG/HR CONTINUOUS RATE ... Q4PCA IV Last administered on 02/28/17 04:02; Admin Dose 6 MG; Start 02/26/17 at 06:30 Acetaminophen (Ofirmev 1000mg/ 100ml Iv) 100 ml @ 400 mls/hr Q6H IVPB Last administered on 02/28/17 12:41; Admin Dose 400 MLS/HR; Start 02/26/17 at 06:30 Gabapentin (Neurontin) 200 mg TID PO Last administered on 02/28/17 12:40; Admin Dose 200 MG; Start 02/26/17 at 09:00 IV Flush (NS 10 ml) 10 ml PRN PRN IV IV PROTOCOL; Start 02/26/17 at 13:00 Ferrous Sulfate (Ferrous Sulfate (Ec)) 325 mg Q2D PO Last administered on 13:01; Admin Dose 325 MG; Start 02/27/17 at 12:00 RADHA CRUZ MD Feb 28, 2017 15:44
[2017-02-28] MEDS: CEFTRIAXONE 2 GM/50 ML (PMX) 50 ML IVPB SCH (16:35)
[2017-02-28 20:00] VITALS: BP 135/76; RESP 18
[2017-02-28] MEDS: ATORVASTATIN 40 MG TAB PO SCH (21:12)
[2017-03-01] MEDS: ACETAMINOPHEN 1000MG/100ML IV 100 ML IVPB SCH ×4 (00:55→18:08)
[2017-03-01 02:00] VITALS: BP 149/84; RESP 19
[2017-03-01 05:38] LABS: BASOPHIL # 0.1 10^3/ul (0.0-0.1); BASOPHILS % 1.1 % (0.0-2.0); EOSINOPHILS # 0.3 10^3/ul (0.0-0.5); EOSINOPHILS % 3.6 % (0.0-7.0); HEMATOCRIT 26.7 % (42.0-52.0); HEMOGLOBIN 8.4 g/dl (14.0-18.0); LYMPHOCYTES # 1.3 10^3/ul (0.8-2.9); LYMPHOCYTES % 16.1 % (15.0-51.0); MEAN CORPUSCULAR HEMOGLOBIN 27.9 pg (29.0-33.0); MEAN CORPUSCULAR HGB CONC 31.5 g/dl (32.0-37.0); MEAN CORPUSCULAR VOLUME 88.7 fl (82.0-101.0); MEAN PLATELET VOLUME 9.4 fl (7.4-10.4); MONOCYTE # 0.8 10^3/ul (0.3-0.9); MONOCYTES % 10.1 % (0.0-11.0); NEUTROPHIL # 5.7 10^3/ul (1.6-7.5); NEUTROPHILS % 68.5 % (39.0-77.0); PLATELET COUNT 523 10^3/UL (140-415); RED BLOOD COUNT 3.01 10^6/ul (4.70-6.10); RED CELL DISTRIBUTION WIDTH 15.4 % (11.5-14.5); WHITE BLOOD COUNT 8.3 10^3/ul (4.8-10.8)
[2017-03-01 05:49] LABS: CALCIUM 8.3 mg/dl (8.4-10.2); CREATININE 0.8 mg/dl (0.61-1.24); MAGNESIUM 1.9 mg/dl (1.7-2.5); PHOSPHORUS 3.6 mg/dl (2.5-4.9); POTASSIUM 4.3 mmol/L (3.5-5.1)
[2017-03-01] MEDS: PANTOPRAZOLE (EC) 40 MG TAB PO SCH (06:37)
[2017-03-01] MEDS: HEPARIN 5,000 UNIT/0.5 ML VIAL SC SCH ×3 (06:38→21:22)
[2017-03-01 07:52] VITALS: BP 125/84; RESP 18
[2017-03-01] MEDS: GABAPENTIN 100 MG CAP PO SCH ×3 (08:08→21:13)
[2017-03-01] MEDS: BENAZEPRIL 40 MG TAB PO SCH (08:09)
[2017-03-01] MEDS: METOPROLOL 50 MG TAB PO SCH ×2 (08:09→21:17)
[2017-03-01] MEDS: AMLODIPINE 10 MG TAB PO SCH (08:09)
[2017-03-01] MEDS: HYDROmorphONE 0.2 MG/ML PCA IV SCH ×2 (08:16→21:44)
[2017-03-01] MEDS: FERROUS SULFATE (EC) 325 MG TAB PO SCH (12:24)
--- NOTE | 2017-03-01 12:54 | PN ---
Date/Time of Note Date/Time of Note DATE: 03/01/17 TIME: 12:40 Assessment/Plan VTE Prophylaxis VTE Prophylaxis Intervention: SCD's Lines/Catheters IV Catheter Type (from Nrsg): PICC Line Central line still needed: Yes Urinary Cath still in place: No Assessment/Plan Assessment/Plan 1. Right shoulder pain s/p removal of hardware POD #5 - Ortho on board and consultation greatly appreciated. Patient to keep right arm in sling but has not been very compliant. Okay for discharge from their standpoints. Will need to follow up for placement of permanent hardware once infection resolved - Culture growing Staph Aureus and ID on board. consultation greatly appreciated. Patient will need 6 weeks for Ceftriaxone upon discharge (started on 02/25). PICC line in place and CM working on placement of SNF if patient unable to find friends to stay with - Final repeat wound cultures negative - Remains afebrile with normal WBC - Pain control. Difficult to determine if patient really in pain or pain seeking. Will talk with both arms and stop occasionally complaining of pain which subsides in seconds. Appears comfortable during entire encounter. Currently on Dilaudid H[employer] and not maximizing use. Advised to push the button when ready 2. Hypertensive urgency-resolved - Continue current medications and will adjust as needed 3. Anemia, iron deficiency - Mild, continue to monitor - iron studies show very low iron levels. Started on iron supplement 4. Hypokalemia- resolved - Continue to monitor 5. Tachycardia - Likely secondary to possible infection and pain - stable, monitor 6. hyposmolar hyponatremia- resolved - improving after started PO diet again 7. Disposition - Will require Ceftriaxone 2mg IV q 24 hours for 6 weeks total (started on 02/25 ) - Awaiting placement - Pain management on board for pain control Subjective 24 Hr Interval Summary Free Text/Dictation Patient still experiencing discomfort in right shoulder and concerned that infection still present given swelling. Discussed the fact he moves around his shoulder is contributing to his pain and swelling. repeat wound cultures were negative. Exam/Review of Systems Vital Signs Vitals Vital Signs Date Time Temp Pulse Resp B/P Pulse Ox O2 Delivery O2 Flow Rate FiO2 03/01/17 09:00 18 03/01/17 07:52 98.1 107 125/84 99 02/28/17 09:27 Room Air 02/26/17 22:30 2.0 Intake and Output 12/05/1602/28/17 03/01/17 15:00 23:00 07:00 Intake Total 100 ml 1750 ml 1200 ml Balance 100 ml 1750 ml 1200 ml Exam General: Patient in no acute distress, moving his arms bilaterally and will have occasional pain Mentation: Patient is alert and oriented 4, Head: Normocephalic atraumatic Neck: Supple, nontender, midline Respiratory: Clear to auscultation bilaterally. no wheezes or rhonchi Cardiovascular: regular rate and rhythm, no obvious murmurs Gastrointestinal: non-tender to palpation, bowel sounds heard. no rebound or guarding Neurological: Moves all extremities spontaneously musculoskeletal: right shoulder incision clean and dry with no discharge or drainage. Results Result Diagram: 03/01/176 03/01/17 0436 Results 24 hrs Laboratory Tests Test 03/01/17 04:36 White Blood Count 8.3 Red Blood Count 3.01 L Hemoglobin 8.4 L Hematocrit 26.7 L Mean Corpuscular Volume 88.7 Mean Corpuscular Hemoglobin 27.9 L Mean Corpuscular Hemoglobin Concent 31.5 L Red Cell Distribution Width 15.4 H Platelet Count 523 #H Mean Platelet Volume 9.4 Neutrophils % 68.5 Lymphocytes % 16.1 Monocytes % 10.1 Eosinophils % 3.6 Basophils % 1.1 Nucleated Red Blood Cells % 0.0 Neutrophils # 5.7 Lymphocytes # 1.3 Monocytes # 0.8 Eosinophils # 0.3 Basophils # 0.1 Nucleated Red Blood Cells # 0.0 Sodium Level 136 Potassium Level 4.3 Chloride Level 99 Carbon Dioxide Level 30 Anion Gap 11 Blood Urea Nitrogen 9 Creatinine 0.80 Glucose Level 118 Calcium Level 8.3 L Phosphorus Level 3.6 Magnesium Level 1.9 Albumin 3.0 L Medications Medications Current Medications Amlodipine Besylate (Norvasc) 10 mg DAILY PO Last administered on 03/01/17 08: 09; Admin Dose 10 MG; Start 02/20/17 at 17:30 Atorvastatin Calcium (Lipitor) 40 mg QHS PO Last administered on 02/28/17 21: 12; Admin Dose 40 MG; Start 02/20/17 at 21:00 Metoprolol Tartrate (Lopressor) 50 mg BID PO Last administered on 03/01/17 08: 09; Admin Dose 50 MG; Start 02/20/17 at 21:00 Benazepril HCl (Lotensin) 40 mg DAILY PO Last administered on 03/01/17 08:09; Admin Dose 40 MG; Start 02/21/17 at 09:00 Hydralazine HCl (Apresoline) 10 mg Q4H PRN IV sbp>160 Last administered on 18:38; Admin Dose 10 MG; Start 02/20/17 at 17:30 Lorazepam (Ativan) 0.5 mg Q8H PRN PO ANXIETY Last administered on 02/23/17 05 :22; Admin Dose 0.5 MG; Start 02/20/17 at 18:00 Ondansetron HCl (Zofran Inj) 4 mg Q6H PRN IV NAUSEA AND/OR VOMITING Last administered on 02/24/17 19:13; Admin Dose 4 MG; Start 02/20/17 at 18:00 Acetaminophen (Tylenol Tab) 650 mg Q6H PRN PO PAIN LEVEL 1-3 OR FEVER; Start 02/20/17 at 18:00 Bisacodyl (Dulcolax) 5 mg DAILY PRN PO CONSTIPATION; Start 02/20/17 at 18:00 Pantoprazole (Protonix Tab) 40 mg DAILY@06 PO Last administered on 03/01/17 06 :37; Admin Dose 40 MG; Start 02/21/17 at 06:00 Heparin Sodium (Porcine) (Heparin (5000 Units/0.5 ml)) 5,000 unit Q8 SC Last administered on 03/01/17 06:38; Admin Dose 5,000 UNIT; Start 02/20/17 at 22:00 Nicotine (Nicoderm 14 Mg/ 24hr) 1 patch DAILY PRN TRANSDERM smoking Last administered on 02/26/17 21:11; Admin Dose 1 PATCH; Start 02/20/17 at 18:00 Lorazepam (Ativan) 2 mg Q10MIN PRN IV seizure; Start 02/20/17 at 18:00 Senna/Docusate Sodium 1 tab 1 tab Q12H PRN PO constipation; Start 02/23/17 at 11:00 Ceftriaxone Sodium (Rocephin) 50 ml @ 100 mls/hr Q24H IVPB Last administered on 02/28/17 16:35; Admin Dose 100 MLS/HR; Start 02/25/17 at 16:00 Hydromorphone HCl 0.1 MG/HR CONTINUOUS RATE ... Q4PCA IV Last administered on 03/01/17 08:16; Admin Dose 6 MG; Start 02/26/17 at 06:30 Acetaminophen (Ofirmev 1000mg/ 100ml Iv) 100 ml @ 400 mls/hr Q6H IVPB Last administered on 03/01/17 12:24; Admin Dose 400 MLS/HR; Start 02/26/17 at 06:30 Gabapentin (Neurontin) 200 mg TID PO Last administered on 03/01/17 12:24; Admin Dose 200 MG; Start 02/26/17 at 09:00 IV Flush (NS 10 ml) 10 ml PRN PRN IV IV PROTOCOL; Start 02/26/17 at 13:00 Ferrous Sulfate (Ferrous Sulfate (Ec)) 325 mg Q2D PO Last administered on 12:24; Admin Dose 325 MG; Start 02/27/17 at 12:00 RADHA CRUZ MD Mar 01, 2017 12:54
[2017-03-01] MEDS ORDERED: morphine 1 MG/ML 30 ML (PCA) IV SCH (13:00)
[2017-03-01] MEDS ORDERED: HYDROmorphONE 0.2 MG/ML PCA IV SCH (13:00)
[2017-03-01 14:00] VITALS: BP 133/72; RESP 18
[2017-03-01] MEDS: CEFTRIAXONE 2 GM/50 ML (PMX) 50 ML IVPB SCH (15:31)
--- NOTE | 2017-03-01 17:25 | CONS ---
Date/Time of Note Date/Time of Note DATE: 03/01/17 TIME: 17:24 Assessment/Plan Assessment/Plan Chief Complaint/Hosp Course SUBJECTIVE: No events overnight. No fevers, looks comfortable. MICROBIOLOGY: Right shoulder and blood culture growing Staphylococcus aureus. Repeat blood cultures preliminary negative. ALL: PCN, Sulfa ANTIMICROBIALS: Rocephin PHYSICAL EXAMINATION: GENERAL: Well-developed, elderly white man who is alert, in no distress. HEENT: Head atraumatic, normocephalic. Sclerae anicteric. Buccal mucosa pink. NECK: Supple. CHEST: Rise symmetrical. Breath sounds clear. HEART: S1, S2. ABDOMEN: Soft, bowel tones present. EXTREMITIES: With right shoulder dressing clean, dry and intact. SKIN: No jaundice, rashes, cyanosis. ASSESSMENT: 1. Right shoulder DWIGHT infected arthroplasty, status post surgical intervention with revision arthroplasty, removal of humerus component and placement of antibiotic spacer, postop day #3. 2. Oxacillin sensitive Staphylococcus aureus bacteremia secondary to above. 3. Hypertension. 4. History of bilateral shoulder replacement. PLAN: Remains stable, repeat bld cx negative, pending dc on current abx for 6 weeks, f/u with ortho [facility] staff Problems: Consultation Date/Type/Reason Admit Date/Time Feb 20, 2017 at 16:35 Type of Consultation: ID Exam/Review of Systems Vital Signs Vitals Vital Signs Date Time Temp Pulse Resp B/P Pulse Ox O2 Delivery O2 Flow Rate FiO2 03/01/17 13:00 18 03/01/17 07:52 98.1 107 125/84 99 02/28/17 09:27 Room Air 02/26/17 22:30 2.0 Intake and Output 02/28/17 02/28/17 03/01/17 15:00 23:00 07:00 Intake Total 100 ml 1750 ml 1200 ml Balance 100 ml 1750 ml 1200 ml Results Result Diagram: 03/01/17 0436 03/01/17 0436 Results 24 hrs Laboratory Tests Test 03/01/17 04:36 White Blood Count 8.3 Red Blood Count 3.01 L Hemoglobin 8.4 L Hematocrit 26.7 L Mean Corpuscular Volume 88.7 Mean Corpuscular Hemoglobin 27.9 L Mean Corpuscular Hemoglobin Concent 31.5 L Red Cell Distribution Width 15.4 H Platelet Count 523 #H Mean Platelet Volume 9.4 Neutrophils % 68.5 Lymphocytes % 16.1 Monocytes % 10.1 Eosinophils % 3.6 Basophils % 1.1 Nucleated Red Blood Cells % 0.0 Neutrophils # 5.7 Lymphocytes # 1.3 Monocytes # 0.8 Eosinophils # 0.3 Basophils # 0.1 Nucleated Red Blood Cells # 0.0 Sodium Level 136 Potassium Level 4.3 Chloride Level 99 Carbon Dioxide Level 30 Anion Gap 11 Blood Urea Nitrogen 9 Creatinine 0.80 Glucose Level 118 Calcium Level 8.3 L Phosphorus Level 3.6 Magnesium Level 1.9 Albumin 3.0 L Medications Medications Current Medications Amlodipine Besylate (Norvasc) 10 mg DAILY PO Last administered on 03/01/17 08: 09; Admin Dose 10 MG; Start 02/20/17 at 17:30 Atorvastatin Calcium (Lipitor) 40 mg QHS PO Last administered on 02/28/17 21: 12; Admin Dose 40 MG; Start 02/20/17 at 21:00 Metoprolol Tartrate (Lopressor) 50 mg BID PO Last administered on 03/01/17 08: 09; Admin Dose 50 MG; Start 02/20/17 at 21:00 Benazepril HCl (Lotensin) 40 mg DAILY PO Last administered on 03/01/17 08:09; Admin Dose 40 MG; Start 02/21/17 at 09:00 Hydralazine HCl (Apresoline) 10 mg Q4H PRN IV sbp>160 Last administered on 18:38; Admin Dose 10 MG; Start 02/20/17 at 17:30 Lorazepam (Ativan) 0.5 mg Q8H PRN PO ANXIETY Last administered on 02/23/17 05 :22; Admin Dose 0.5 MG; Start 02/20/17 at 18:00 Ondansetron HCl (Zofran Inj) 4 mg Q6H PRN IV NAUSEA AND/OR VOMITING Last administered on 02/24/17 19:13; Admin Dose 4 MG; Start 02/20/17 at 18:00 Acetaminophen (Tylenol Tab) 650 mg Q6H PRN PO PAIN LEVEL 1-3 OR FEVER; Start 02/20/17 at 18:00 Bisacodyl (Dulcolax) 5 mg DAILY PRN PO CONSTIPATION; Start 02/20/17 at 18:00 Pantoprazole (Protonix Tab) 40 mg DAILY@06 PO Last administered on 03/01/17 06 :37; Admin Dose 40 MG; Start 02/21/17 at 06:00 Heparin Sodium (Porcine) (Heparin (5000 Units/0.5 ml)) 5,000 unit Q8 SC Last administered on 03/01/17 13:22; Admin Dose 5,000 UNIT; Start 02/20/17 at 22:00 Nicotine (Nicoderm 14 Mg/ 24hr) 1 patch DAILY PRN TRANSDERM smoking Last administered on 02/26/17 21:11; Admin Dose 1 PATCH; Start 02/20/17 at 18:00 Lorazepam (Ativan) 2 mg Q10MIN PRN IV seizure; Start 02/20/17 at 18:00 Senna/Docusate Sodium 1 tab 1 tab Q12H PRN PO constipation; Start 02/23/17 at 11:00 Ceftriaxone Sodium 50 ml @ 100 mls/hr Q24H IVPB Last administered on 15:31; Admin Dose 100 MLS/HR; Start 02/25/17 at 16:00 Acetaminophen (Ofirmev 1000mg/ 100ml Iv) 100 ml @ 400 mls/hr Q6H IVPB Last administered on 03/01/17 12:24; Admin Dose 400 MLS/HR; Start 02/26/17 at 06:30 Gabapentin (Neurontin) 200 mg TID PO Last administered on 03/01/17 12:24; Admin Dose 200 MG; Start 02/26/17 at 09:00 IV Flush (NS 10 ml) 10 ml PRN PRN IV IV PROTOCOL; Start 02/26/17 at 13:00 Ferrous Sulfate (Ferrous Sulfate (Ec)) 325 mg Q2D PO Last administered on 12:24; Admin Dose 325 MG; Start 02/27/17 at 12:00 Hydromorphone HCl (Dilaudid AIRBRUSH PAINTER) 0.2 MG/HR CONTINUOUS RATE ... Q4PCA IV ; Start 03/01/17 at 17:00 MICHELE COUCH NP Mar 01, 2017 17:25
[2017-03-01 20:26] VITALS: BP 126/68; RESP 18
[2017-03-01] MEDS: ATORVASTATIN 40 MG TAB PO SCH (21:13)
[2017-03-02] MEDS: ACETAMINOPHEN 1000MG/100ML IV 100 ML IVPB SCH ×4 (00:33→18:40)
[2017-03-02 02:57] VITALS: BP 128/74; RESP 18
[2017-03-02] MEDS: PANTOPRAZOLE (EC) 40 MG TAB PO SCH (05:35)
[2017-03-02 05:37] LABS: BASOPHIL # 0.1 10^3/ul (0.0-0.1); BASOPHILS % 0.8 % (0.0-2.0); EOSINOPHILS # 0.3 10^3/ul (0.0-0.5); EOSINOPHILS % 2.7 % (0.0-7.0); HEMOGLOBIN 9.1 g/dl (14.0-18.0); LYMPHOCYTES # 1.6 10^3/ul (0.8-2.9); LYMPHOCYTES % 17.1 % (15.0-51.0); MEAN CORPUSCULAR HEMOGLOBIN 27.6 pg (29.0-33.0); MEAN CORPUSCULAR HGB CONC 31.4 g/dl (32.0-37.0); MEAN CORPUSCULAR VOLUME 87.9 fl (82.0-101.0); MEAN PLATELET VOLUME 9.3 fl (7.4-10.4); MONOCYTES % 10.3 % (0.0-11.0); NEUTROPHIL # 6.5 10^3/ul (1.6-7.5); NEUTROPHILS % 68.1 % (39.0-77.0); PLATELET COUNT 636 10^3/UL (140-415); RED CELL DISTRIBUTION WIDTH 15.3 % (11.5-14.5); WHITE BLOOD COUNT 9.5 10^3/ul (4.8-10.8)
[2017-03-02] MEDS: HEPARIN 5,000 UNIT/0.5 ML VIAL SC SCH ×4 (05:40→21:46)
[2017-03-02 06:09] LABS: ALBUMIN 3.3 g/dl (3.3-4.9); CALCIUM 8.8 mg/dl (8.4-10.2); CREATININE 0.83 mg/dl (0.61-1.24); PHOSPHORUS 4.2 mg/dl (2.5-4.9); POTASSIUM 4.5 mmol/L (3.5-5.1)
[2017-03-02 07:38] VITALS: BP 174/62; RESP 19
[2017-03-02] MEDS: GABAPENTIN 100 MG CAP PO SCH ×3 (08:37→20:33)
[2017-03-02] MEDS: BENAZEPRIL 40 MG TAB PO SCH (08:38)
[2017-03-02] MEDS: AMLODIPINE 10 MG TAB PO SCH (08:39)
[2017-03-02] MEDS: METOPROLOL 50 MG TAB PO SCH ×2 (08:39→20:33)
--- NOTE | 2017-03-02 14:00 | CONS ---
Date/Time of Note Date/Time of Note DATE: 03/02/17 TIME: 13:59 Assessment/Plan Assessment/Plan Chief Complaint/Hosp Course SUBJECTIVE: No events overnight. No fevers, alert, looks comfortable. MICROBIOLOGY: Right shoulder and blood culture growing Staphylococcus aureus. Repeat blood cultures preliminary negative. ALL: PCN, Sulfa ANTIMICROBIALS: Rocephin PHYSICAL EXAMINATION: GENERAL: Well-developed, elderly white man who is alert, in no distress. HEENT: Head atraumatic, normocephalic. Sclerae anicteric. Buccal mucosa pink. NECK: Supple. CHEST: Rise symmetrical. Breath sounds clear. HEART: S1, S2. ABDOMEN: Soft, bowel tones present. EXTREMITIES: With right shoulder dressing clean, dry and intact. SKIN: No jaundice, rashes, cyanosis. ASSESSMENT: 1. Right shoulder DWIGHT infected arthroplasty, status post surgical intervention with revision arthroplasty, removal of humerus component and placement of antibiotic spacer 04/26/16 2. Oxacillin sensitive Staphylococcus aureus bacteremia secondary to above. 3. Hypertension. 4. History of bilateral shoulder replacement. PLAN: Remains stable, repeat bld cx negative, pending dc on current abx for 6 weeks, f/u with ortho [facility] staff Problems: Consultation Date/Type/Reason Admit Date/Time Feb 20, 2017 at 16:35 Type of Consultation: ID Exam/Review of Systems Vital Signs Vitals Vital Signs Date Time Temp Pulse Resp B/P Pulse Ox O2 Delivery O2 Flow Rate FiO2 03/02/17 09:00 18 03/02/17 07:38 98.0 74 174/62 98 02/28/17 09:27 Room Air 02/26/17 22:30 2.0 Intake and Output 03/01/17 03/01/17 03/02/17 15:00 23:00 07:00 Intake Total 100 ml 1550 ml 960 ml Balance 100 ml 1550 ml 960 ml Results Result Diagram: 03/02/17 0455 03/02/17 0455 Results 24 hrs Laboratory Tests Test 03/02/17 04:55 White Blood Count 9.5 Red Blood Count 3.30 L Hemoglobin 9.1 L Hematocrit 29.0 L Mean Corpuscular Volume 87.9 Mean Corpuscular Hemoglobin 27.6 L Mean Corpuscular Hemoglobin Concent 31.4 L Red Cell Distribution Width 15.3 H Platelet Count 636 #H Mean Platelet Volume 9.3 Neutrophils % 68.1 Lymphocytes % 17.1 Monocytes % 10.3 Eosinophils % 2.7 Basophils % 0.8 Nucleated Red Blood Cells % 0.0 Neutrophils # 6.5 Lymphocytes # 1.6 Monocytes # 1.0 H Eosinophils # 0.3 Basophils # 0.1 Nucleated Red Blood Cells # 0.0 Sodium Level 139 Potassium Level 4.5 Chloride Level 100 Carbon Dioxide Level 31 Anion Gap 13 Blood Urea Nitrogen 10 Creatinine 0.83 Glucose Level 115 Calcium Level 8.8 Phosphorus Level 4.2 Magnesium Level 2.0 Albumin 3.3 Medications Medications Current Medications Amlodipine Besylate (Norvasc) 10 mg DAILY PO Last administered on 03/02/17 08: 39; Admin Dose 10 MG; Start 02/20/17 at 17:30 Atorvastatin Calcium (Lipitor) 40 mg QHS PO Last administered on 03/01/17 21: 13; Admin Dose 40 MG; Start 02/20/17 at 21:00 Metoprolol Tartrate (Lopressor) 50 mg BID PO Last administered on 03/02/17 08: 39; Admin Dose 50 MG; Start 02/20/17 at 21:00 Benazepril HCl (Lotensin) 40 mg DAILY PO Last administered on 03/02/17 08:38; Admin Dose 40 MG; Start 02/21/17 at 09:00 Hydralazine HCl (Apresoline) 10 mg Q4H PRN IV sbp>160 Last administered on 18:38; Admin Dose 10 MG; Start 02/20/17 at 17:30 Lorazepam (Ativan) 0.5 mg Q8H PRN PO ANXIETY Last administered on 02/23/17 05 :22; Admin Dose 0.5 MG; Start 02/20/17 at 18:00 Ondansetron HCl (Zofran Inj) 4 mg Q6H PRN IV NAUSEA AND/OR VOMITING Last administered on 02/24/17 19:13; Admin Dose 4 MG; Start 02/20/17 at 18:00 Acetaminophen (Tylenol Tab) 650 mg Q6H PRN PO PAIN LEVEL 1-3 OR FEVER; Start 02/20/17 at 18:00 Bisacodyl (Dulcolax) 5 mg DAILY PRN PO CONSTIPATION; Start 02/20/17 at 18:00 Pantoprazole (Protonix Tab) 40 mg DAILY@06 PO Last administered on 03/02/17 05 :35; Admin Dose 40 MG; Start 02/21/17 at 06:00 Heparin Sodium (Porcine) (Heparin (5000 Units/0.5 ml)) 5,000 unit Q8 SC Last administered on 03/02/17 05:40; Admin Dose 5,000 UNIT; Start 02/20/17 at 22:00 Nicotine (Nicoderm 14 Mg/ 24hr) 1 patch DAILY PRN TRANSDERM smoking Last administered on 02/26/17 21:11; Admin Dose 1 PATCH; Start 02/20/17 at 18:00 Lorazepam (Ativan) 2 mg Q10MIN PRN IV seizure; Start 02/20/17 at 18:00 Senna/Docusate Sodium 1 tab 1 tab Q12H PRN PO constipation; Start 02/23/17 at 11:00 Ceftriaxone Sodium 50 ml @ 100 mls/hr Q24H IVPB Last administered on 15:31; Admin Dose 100 MLS/HR; Start 02/25/17 at 16:00 Acetaminophen (Ofirmev 1000mg/ 100ml Iv) 100 ml @ 400 mls/hr Q6H IVPB Last administered on 03/02/17 12:20; Admin Dose 400 MLS/HR; Start 02/26/17 at 06:30 Gabapentin (Neurontin) 200 mg TID PO Last administered on 03/02/17 12:20; Admin Dose 200 MG; Start 02/26/17 at 09:00 IV Flush (NS 10 ml) 10 ml PRN PRN IV IV PROTOCOL; Start 02/26/17 at 13:00 Ferrous Sulfate (Ferrous Sulfate (Ec)) 325 mg Q2D PO Last administered on 12:24; Admin Dose 325 MG; Start 02/27/17 at 12:00 Hydromorphone HCl (Dilaudid COLORING CHECKER) 0.2 MG/HR CONTINUOUS RATE ... Q4PCA IV Last administered on 03/01/17 21:44; Admin Dose 6 MG; Start 03/01/17 at 17:00 MICHELE COUCH NP Mar 02, 2017 14:00
--- NOTE | 2017-03-02 14:07 | PN ---
Date/Time of Note Date/Time of Note DATE: 03/02/17 TIME: 14:05 Assessment/Plan VTE Prophylaxis VTE Prophylaxis Intervention: ambulation, SCD's Lines/Catheters IV Catheter Type (from Nrsg): PICC Line Central line still needed: Yes Urinary Cath still in place: No Assessment/Plan Chief Complaint/Hosp Course s: 11. No new complaints, still severe pain in R shoulder 11. no acute overnight events, no new complaints o: Physical exam General: Patient is laying in bed and answers questions appropriately Mentation: Patient is alert and oriented 4, Head: Normocephalic atraumatic Eyes: EOMI, pupils reactive to light Neck: Supple, nontender, midline Respiratory: Clear to auscultation bilaterally Cardiovascular: regular rate, no obvious murmurs Gastrointestinal: non-tender to palpation, bowel sounds heard. Neurological: Moves all extremities spontaneously Skin: No new skin lesions musculoskeletal: R shoulder moderately tender Patient is a 62-year-old male with history of bilateral shoulder replacement who presents with worsening right shoulder pain and questionable effusion Assessment and plan Assessment/Plan # Right shoulder pain s/p removal of hardware POD #6 - Ortho on board and consultation greatly appreciated. Patient to keep right arm in sling but has not been very compliant. Okay for discharge from their standpoints. Will need to follow up for placement of permanent hardware once infection resolved - Culture growing Staph Aureus and ID on board. consultation greatly appreciated. Patient will need 6 weeks for Ceftriaxone upon discharge (started on 02/25). PICC line in place and CM working on placement of SNF if patient unable to find friends to stay with - Final repeat wound cultures negative - Remains afebrile with normal WBC - Pain control. Difficult to determine if patient really in pain or pain seeking. Will talk with both arms and stop occasionally complaining of pain which subsides in seconds. Appears comfortable during entire encounter. Currently on Dilaudid MEDIA ANALYST and not maximizing use. Advised to push the button when ready #. Hypertensive urgency-resolved - Continue current medications and will adjust as needed #. Anemia, iron deficiency - Mild, continue to monitor - iron studies show very low iron levels. Started on iron supplement #. Hypokalemia- resolved - Continue to monitor #. Tachycardia - Likely secondary to possible infection and pain - stable, monitor #. hyposmolar hyponatremia- resolved - improving after started PO diet again #. Disposition - Will require Ceftriaxone 2mg IV q 24 hours for 6 weeks total (started on 02/25 ) - Awaiting placement - Pain management on board for pain control, still requiring dilaudid MEDIA ANALYST, will need to cut down before DC. Will dispo once accepting facility Problems: Exam/Review of Systems Vital Signs Vitals Vital Signs Date Time Temp Pulse Resp B/P Pulse Ox O2 Delivery O2 Flow Rate FiO2 03/02/17 09:00 18 03/02/17 07:38 98.0 74 174/62 98 02/28/17 09:27 Room Air 02/26/17 22:30 2.0 Intake and Output 03/01/17 03/01/17 03/02/17 15:00 23:00 07:00 Intake Total 100 ml 1550 ml 960 ml Balance 100 ml 1550 ml 960 ml Results Result Diagram: 03/02/17 0455 03/02/17 0455 Results 24 hrs Laboratory Tests Test 03/02/17 04:55 White Blood Count 9.5 Red Blood Count 3.30 L Hemoglobin 9.1 L Hematocrit 29.0 L Mean Corpuscular Volume 87.9 Mean Corpuscular Hemoglobin 27.6 L Mean Corpuscular Hemoglobin Concent 31.4 L Red Cell Distribution Width 15.3 H Platelet Count 636 #H Mean Platelet Volume 9.3 Neutrophils % 68.1 Lymphocytes % 17.1 Monocytes % 10.3 Eosinophils % 2.7 Basophils % 0.8 Nucleated Red Blood Cells % 0.0 Neutrophils # 6.5 Lymphocytes # 1.6 Monocytes # 1.0 H Eosinophils # 0.3 Basophils # 0.1 Nucleated Red Blood Cells # 0.0 Sodium Level 139 Potassium Level 4.5 Chloride Level 100 Carbon Dioxide Level 31 Anion Gap 13 Blood Urea Nitrogen 10 Creatinine 0.83 Glucose Level 115 Calcium Level 8.8 Phosphorus Level 4.2 Magnesium Level 2.0 Albumin 3.3 Medications Medications Current Medications Amlodipine Besylate (Norvasc) 10 mg DAILY PO Last administered on 03/02/17 08: 39; Admin Dose 10 MG; Start 02/20/17 at 17:30 Atorvastatin Calcium (Lipitor) 40 mg QHS PO Last administered on 03/01/17 21: 13; Admin Dose 40 MG; Start 02/20/17 at 21:00 Metoprolol Tartrate (Lopressor) 50 mg BID PO Last administered on 03/02/17 08: 39; Admin Dose 50 MG; Start 02/20/17 at 21:00 Benazepril HCl (Lotensin) 40 mg DAILY PO Last administered on 03/02/17 08:38; Admin Dose 40 MG; Start 02/21/17 at 09:00 Hydralazine HCl (Apresoline) 10 mg Q4H PRN IV sbp>160 Last administered on 18:38; Admin Dose 10 MG; Start 02/20/17 at 17:30 Lorazepam (Ativan) 0.5 mg Q8H PRN PO ANXIETY Last administered on 02/23/17 05 :22; Admin Dose 0.5 MG; Start 02/20/17 at 18:00 Ondansetron HCl (Zofran Inj) 4 mg Q6H PRN IV NAUSEA AND/OR VOMITING Last administered on 02/24/17 19:13; Admin Dose 4 MG; Start 02/20/17 at 18:00 Acetaminophen (Tylenol Tab) 650 mg Q6H PRN PO PAIN LEVEL 1-3 OR FEVER; Start 02/20/17 at 18:00 Bisacodyl (Dulcolax) 5 mg DAILY PRN PO CONSTIPATION; Start 02/20/17 at 18:00 Pantoprazole (Protonix Tab) 40 mg DAILY@06 PO Last administered on 03/02/17 05 :35; Admin Dose 40 MG; Start 02/21/17 at 06:00 Heparin Sodium (Porcine) (Heparin (5000 Units/0.5 ml)) 5,000 unit Q8 SC Last administered on 03/02/17 05:40; Admin Dose 5,000 UNIT; Start 02/20/17 at 22:00 Nicotine (Nicoderm 14 Mg/ 24hr) 1 patch DAILY PRN TRANSDERM smoking Last administered on 02/26/17 21:11; Admin Dose 1 PATCH; Start 02/20/17 at 18:00 Lorazepam (Ativan) 2 mg Q10MIN PRN IV seizure; Start 02/20/17 at 18:00 Senna/Docusate Sodium 1 tab 1 tab Q12H PRN PO constipation; Start 02/23/17 at 11:00 Ceftriaxone Sodium 50 ml @ 100 mls/hr Q24H IVPB Last administered on 15:31; Admin Dose 100 MLS/HR; Start 02/25/17 at 16:00 Acetaminophen (Ofirmev 1000mg/ 100ml Iv) 100 ml @ 400 mls/hr Q6H IVPB Last administered on 03/02/17 12:20; Admin Dose 400 MLS/HR; Start 02/26/17 at 06:30 Gabapentin (Neurontin) 200 mg TID PO Last administered on 03/02/17 12:20; Admin Dose 200 MG; Start 02/26/17 at 09:00 IV Flush (NS 10 ml) 10 ml PRN PRN IV IV PROTOCOL; Start 02/26/17 at 13:00 Ferrous Sulfate (Ferrous Sulfate (Ec)) 325 mg Q2D PO Last administered on 12:24; Admin Dose 325 MG; Start 02/27/17 at 12:00 Hydromorphone HCl (Dilaudid MEDIA ANALYST) 0.2 MG/HR CONTINUOUS RATE ... Q4PCA IV Last administered on 03/01/17 21:44; Admin Dose 6 MG; Start 03/01/17 at 17:00 KATIE JONES Mar 02, 2017 14:07
[2017-03-02] MEDS: CEFTRIAXONE 2 GM/50 ML (PMX) 50 ML IVPB SCH (15:48)
[2017-03-02] MEDS: HYDROmorphONE 0.2 MG/ML PCA IV SCH (17:52)
[2017-03-02 19:44] VITALS: BP 138/76; RESP 18
[2017-03-02] MEDS: ATORVASTATIN 40 MG TAB PO SCH (20:33)
[2017-03-03] MEDS: ACETAMINOPHEN 1000MG/100ML IV 100 ML IVPB SCH ×5 (00:12→23:46)
[2017-03-03 01:30] VITALS: BP 148/74; RESP 18
[2017-03-03] MEDS: PANTOPRAZOLE (EC) 40 MG TAB PO SCH (05:37)
[2017-03-03] MEDS: HEPARIN 5,000 UNIT/0.5 ML VIAL SC SCH (05:51)
[2017-03-03 06:00] LABS: BASOPHIL # 0.1 10^3/ul (0.0-0.1); BASOPHILS % 1.2 % (0.0-2.0); EOSINOPHILS # 0.3 10^3/ul (0.0-0.5); EOSINOPHILS % 3.6 % (0.0-7.0); HEMATOCRIT 28.8 % (42.0-52.0); HEMOGLOBIN 9.1 g/dl (14.0-18.0); LYMPHOCYTES # 1.8 10^3/ul (0.8-2.9); LYMPHOCYTES % 23.2 % (15.0-51.0); MEAN CORPUSCULAR HEMOGLOBIN 27.5 pg (29.0-33.0); MEAN CORPUSCULAR HGB CONC 31.6 g/dl (32.0-37.0); MEAN PLATELET VOLUME 9.3 fl (7.4-10.4); MONOCYTE # 0.9 10^3/ul (0.3-0.9); MONOCYTES % 12.2 % (0.0-11.0); NEUTROPHIL # 4.5 10^3/ul (1.6-7.5); NEUTROPHILS % 58.9 % (39.0-77.0); RED BLOOD COUNT 3.31 10^6/ul (4.70-6.10); RED CELL DISTRIBUTION WIDTH 15.2 % (11.5-14.5); WHITE BLOOD COUNT 7.7 10^3/ul (4.8-10.8)
[2017-03-03 06:28] LABS: CALCIUM 9.1 mg/dl (8.4-10.2); CREATININE 0.87 mg/dl (0.61-1.24); PHOSPHORUS 4.4 mg/dl (2.5-4.9); POTASSIUM 4.4 mmol/L (3.5-5.1)
[2017-03-03] MEDS: HYDROmorphONE 0.2 MG/ML PCA IV SCH ×3 (07:07→22:39)
[2017-03-03 07:08] LABS: PLATELET COUNT 684 10^3/UL (140-415)
[2017-03-03 08:01] VITALS: BP 127/76; RESP 20
[2017-03-03] MEDS: METOPROLOL 50 MG TAB PO SCH ×2 (09:25→20:07)
[2017-03-03] MEDS: BENAZEPRIL 40 MG TAB PO SCH (09:25)
[2017-03-03] MEDS: GABAPENTIN 100 MG CAP PO SCH ×3 (09:26→20:07)
[2017-03-03] MEDS: AMLODIPINE 10 MG TAB PO SCH (09:26)
[2017-03-03] MEDS ORDERED: LIDOCAINE 1% (MPF) 5 ML VIAL SC ONE (10:30)
[2017-03-03] MEDS: FERROUS SULFATE (EC) 325 MG TAB PO SCH (12:00)
--- NOTE | 2017-03-03 12:20 | RADRPT ---
PROCEDURE: US guidance for PICC line CLINICAL INDICATION: PICC line placement TECHNIQUE: Multiple real-time images were acquired of the patient's arm utilizing a high resolutio n transducer. This was performed by the PICC line nurse for venous access. COMPARISON: None FINDINGS: Ultrasound guidance for PICC line placement. IMPRESSION: Ultrasound guidance for PICC line placement. RPTAT: AA .Cam Mckinley MD, MD Date Time Electronically viewed and signed by .Cam Mckinley MD, on 03/03/2017 12:20 .S/
--- NOTE | 2017-03-03 12:24 | RADRPT ---
PROCEDURE: XR Chest. CLINICAL INDICATION: PICC line placement TECHNIQUE: Single frontal view of the chest was obtained COMPARISON: DR MORROW CHEST 02/26/2017 FINDINGS: There is a new left-sided PICC line in place with its tip overlying the cavoatrial junction. The heart, mediastinum, and lungs are unchanged. The patient is status post sternotomy. Thoracic aorta is calcified. There is no focal infiltrate. RPTAT: AA IMPRESSION: New PICC line in appropriate position. .Cam Mckinley MD, MD Date Time Electronically viewed and signed by .Cam Mckinley MD, MD on 03/03/2017 12:24 .S/
[2017-03-03] MEDS ORDERED: MAGNESIUM OXIDE 400 MG TAB PO ONE (12:30)
--- NOTE | 2017-03-03 12:49 | CONS ---
Date/Time of Note Date/Time of Note DATE: 03/03/17 TIME: 12:49 Assessment/Plan Assessment/Plan Chief Complaint/Hosp Course SUBJECTIVE: No events overnight. No fevers, alert, looks comfortable. MICROBIOLOGY: Right shoulder and blood culture growing Staphylococcus aureus. Repeat blood cultures preliminary negative. ALL: PCN, Sulfa ANTIMICROBIALS: Rocephin PHYSICAL EXAMINATION: GENERAL: Well-developed, elderly white man who is alert, in no distress. HEENT: Head atraumatic, normocephalic. Sclerae anicteric. Buccal mucosa pink. NECK: Supple. CHEST: Rise symmetrical. Breath sounds clear. HEART: S1, S2. ABDOMEN: Soft, bowel tones present. EXTREMITIES: With right shoulder dressing clean, dry and intact. SKIN: No jaundice, rashes, cyanosis. ASSESSMENT: 1. Right shoulder DWIGHT infected arthroplasty, status post surgical intervention with revision arthroplasty, removal of humerus component and placement of antibiotic spacer 04/26/16 2. Oxacillin sensitive Staphylococcus aureus bacteremia secondary to above. 3. Hypertension. 4. History of bilateral shoulder replacement. PLAN: Remains stable, repeat bld cx negative, pending dc on current abx for 6 weeks, f/u with ortho [facility] staff Problems: Consultation Date/Type/Reason Admit Date/Time Feb 20, 2017 at 16:35 Type of Consultation: ID Exam/Review of Systems Vital Signs Vitals Vital Signs Date Time Temp Pulse Resp B/P Pulse Ox O2 Delivery O2 Flow Rate FiO2 03/03/17 09:00 18 03/03/17 08:01 97.6 74 127/76 98 02/28/17 09:27 Room Air Intake and Output 03/02/17 03/02/17 03/03/17 15:00 23:00 07:00 Intake Total 100 ml 1650 ml 700 ml Balance 100 ml 1650 ml 700 ml Results Result Diagram: 03/03/17 0500 03/03/17 0500 Results 24 hrs Laboratory Tests Test 03/03/17 05:00 White Blood Count 7.7 Red Blood Count 3.31 L Hemoglobin 9.1 L Hematocrit 28.8 L Mean Corpuscular Volume 87.0 Mean Corpuscular Hemoglobin 27.5 L Mean Corpuscular Hemoglobin Concent 31.6 L Red Cell Distribution Width 15.2 H Platelet Count 684 H Mean Platelet Volume 9.3 Neutrophils % 58.9 Lymphocytes % 23.2 Monocytes % 12.2 H Eosinophils % 3.6 Basophils % 1.2 Nucleated Red Blood Cells % 0.0 Neutrophils # 4.5 Lymphocytes # 1.8 Monocytes # 0.9 Eosinophils # 0.3 Basophils # 0.1 Nucleated Red Blood Cells # 0.0 Sodium Level 139 Potassium Level 4.4 Chloride Level 99 Carbon Dioxide Level 34 H Anion Gap 10 Blood Urea Nitrogen 10 Creatinine 0.87 Glucose Level 98 Calcium Level 9.1 Phosphorus Level 4.4 Magnesium Level 2.0 Albumin 3.0 L Medications Medications Current Medications Amlodipine Besylate (Norvasc) 10 mg DAILY PO Last administered on 03/03/17 09: 26; Admin Dose 10 MG; Start 02/20/17 at 17:30 Atorvastatin Calcium (Lipitor) 40 mg QHS PO Last administered on 03/02/17 20: 33; Admin Dose 40 MG; Start 02/20/17 at 21:00 Metoprolol Tartrate (Lopressor) 50 mg BID PO Last administered on 03/03/17 09: 25; Admin Dose 50 MG; Start 02/20/17 at 21:00 Benazepril HCl (Lotensin) 40 mg DAILY PO Last administered on 03/03/17 09:25; Admin Dose 40 MG; Start 02/21/17 at 09:00 Hydralazine HCl (Apresoline) 10 mg Q4H PRN IV sbp>160 Last administered on 18:38; Admin Dose 10 MG; Start 02/20/17 at 17:30 Lorazepam (Ativan) 0.5 mg Q8H PRN PO ANXIETY Last administered on 02/23/17 05 :22; Admin Dose 0.5 MG; Start 02/20/17 at 18:00 Ondansetron HCl (Zofran Inj) 4 mg Q6H PRN IV NAUSEA AND/OR VOMITING Last administered on 02/24/17 19:13; Admin Dose 4 MG; Start 02/20/17 at 18:00 Acetaminophen (Tylenol Tab) 650 mg Q6H PRN PO PAIN LEVEL 1-3 OR FEVER; Start 02/20/17 at 18:00 Bisacodyl (Dulcolax) 5 mg DAILY PRN PO CONSTIPATION; Start 02/20/17 at 18:00 Pantoprazole (Protonix Tab) 40 mg DAILY@06 PO Last administered on 03/03/17 05 :37; Admin Dose 40 MG; Start 02/21/17 at 06:00 Nicotine (Nicoderm 14 Mg/ 24hr) 1 patch DAILY PRN TRANSDERM smoking Last administered on 02/26/17 21:11; Admin Dose 1 PATCH; Start 02/20/17 at 18:00 Lorazepam (Ativan) 2 mg Q10MIN PRN IV seizure; Start 02/20/17 at 18:00 Senna/Docusate Sodium 1 tab 1 tab Q12H PRN PO constipation; Start 02/23/17 at 11:00 Ceftriaxone Sodium 50 ml @ 100 mls/hr Q24H IVPB Last administered on 15:48; Admin Dose 100 MLS/HR; Start 02/25/17 at 16:00 Acetaminophen (Ofirmev 1000mg/ 100ml Iv) 100 ml @ 400 mls/hr Q6H IVPB Last administered on 03/03/17 05:37; Admin Dose 400 MLS/HR; Start 02/26/17 at 06:30 Gabapentin (Neurontin) 200 mg TID PO Last administered on 03/03/17 09:26; Admin Dose 200 MG; Start 02/26/17 at 09:00 IV Flush (NS 10 ml) 10 ml PRN PRN IV IV PROTOCOL; Start 02/26/17 at 13:00 Ferrous Sulfate (Ferrous Sulfate (Ec)) 325 mg Q2D PO Last administered on 12:24; Admin Dose 325 MG; Start 02/27/17 at 12:00 Hydromorphone HCl (Dilaudid K [employer] PRINCIPAL) 0.2 MG/HR CONTINUOUS RATE ... Q4PCA IV Last administered on 03/03/17 07:07; Admin Dose 6 MG; Start 03/01/17 at 17:00 MICHELE COUCH NP Mar 03, 2017 12:49
--- NOTE | 2017-03-03 14:18 | PN ---
Date/Time of Note Date/Time of Note DATE: 03/03/17 TIME: 14:16 Assessment/Plan VTE Prophylaxis VTE Prophylaxis Intervention: ambulation, SCD's Lines/Catheters IV Catheter Type (from Nrsg): PICC Line Central line still needed: Yes Urinary Cath still in place: No Assessment/Plan Chief Complaint/Hosp Course s: 11.25 No new complaints, still severe pain in R shoulder 11.26 no acute overnight events, no new complaints 12.5 still severe R arm pain o: Physical exam General: Patient is laying in bed and answers questions appropriately Mentation: Patient is alert and oriented 4, Head: Normocephalic atraumatic Eyes: EOMI, pupils reactive to light Neck: Supple, nontender, midline Respiratory: Clear to auscultation bilaterally Cardiovascular: regular rate, no obvious murmurs Gastrointestinal: non-tender to palpation, bowel sounds heard. Neurological: Moves all extremities spontaneously Skin: No new skin lesions musculoskeletal: R shoulder moderately tender Patient is a 62-year-old male with history of bilateral shoulder replacement who presents with worsening right shoulder pain and questionable effusion Assessment and plan Assessment/Plan # Right shoulder pain s/p removal of hardware POD #7 - Ortho on board and consultation greatly appreciated. Patient to keep right arm in sling but has not been very compliant. Okay for discharge from their standpoints. Will need to follow up for placement of permanent hardware once infection resolved - Culture growing Staph Aureus and ID on board. consultation greatly appreciated. Patient will need 6 weeks for Ceftriaxone upon discharge (started on 02/25). PICC line in place and CM working on placement of SNF if patient unable to find friends to stay with - Final repeat wound cultures negative - Remains afebrile with normal WBC - Pain control. Difficult to determine if patient really in pain or pain seeking. Will talk with both arms and stop occasionally complaining of pain which subsides in seconds. Appears comfortable during entire encounter. Currently on Dilaudid SPECIAL EFFECTS PERSON and not maximizing use. Advised to push the button when ready #. Hypertensive urgency-resolved - Continue current medications and will adjust as needed #. Anemia, iron deficiency - Mild, continue to monitor - iron studies show very low iron levels. Started on iron supplement #. Hypokalemia- resolved - Continue to monitor #. Tachycardia - Likely secondary to possible infection and pain - stable, monitor #. hyposmolar hyponatremia- resolved - improving after started PO diet again #. Disposition - Will require Ceftriaxone 2mg IV q 24 hours for 6 weeks total (started on 02/25 ) - Awaiting placement - Pain management on board for pain control, still requiring dilaudid SPECIAL EFFECTS PERSON, will need to cut down before DC. Will dispo once accepting facility Problems: Exam/Review of Systems Vital Signs Vitals Vital Signs Date Time Temp Pulse Resp B/P Pulse Ox O2 Delivery O2 Flow Rate FiO2 03/03/17 13:15 18 03/03/17 08:01 97.6 74 127/76 98 02/28/17 09:27 Room Air Intake and Output 03/02/17 03/02/17 03/03/17 14:59 22:59 06:59 Intake Total 100 ml 1650 ml 700 ml Balance 100 ml 1650 ml 700 ml Results Result Diagram: 03/03/17 0500 03/03/17 0500 Results 24 hrs Laboratory Tests Test 03/03/17 05:00 White Blood Count 7.7 Red Blood Count 3.31 L Hemoglobin 9.1 L Hematocrit 28.8 L Mean Corpuscular Volume 87.0 Mean Corpuscular Hemoglobin 27.5 L Mean Corpuscular Hemoglobin Concent 31.6 L Red Cell Distribution Width 15.2 H Platelet Count 684 H Mean Platelet Volume 9.3 Neutrophils % 58.9 Lymphocytes % 23.2 Monocytes % 12.2 H Eosinophils % 3.6 Basophils % 1.2 Nucleated Red Blood Cells % 0.0 Neutrophils # 4.5 Lymphocytes # 1.8 Monocytes # 0.9 Eosinophils # 0.3 Basophils # 0.1 Nucleated Red Blood Cells # 0.0 Sodium Level 139 Potassium Level 4.4 Chloride Level 99 Carbon Dioxide Level 34 H Anion Gap 10 Blood Urea Nitrogen 10 Creatinine 0.87 Glucose Level 98 Calcium Level 9.1 Phosphorus Level 4.4 Magnesium Level 2.0 Albumin 3.0 L Medications Medications Current Medications Amlodipine Besylate (Norvasc) 10 mg DAILY PO Last administered on 03/03/17 09: 26; Admin Dose 10 MG; Start 02/20/17 at 17:30 Atorvastatin Calcium (Lipitor) 40 mg QHS PO Last administered on 03/02/17 20: 33; Admin Dose 40 MG; Start 02/20/17 at 21:00 Metoprolol Tartrate (Lopressor) 50 mg BID PO Last administered on 03/03/17 09: 25; Admin Dose 50 MG; Start 02/20/17 at 21:00 Benazepril HCl (Lotensin) 40 mg DAILY PO Last administered on 03/03/17 09:25; Admin Dose 40 MG; Start 02/21/17 at 09:00 Hydralazine HCl (Apresoline) 10 mg Q4H PRN IV sbp>160 Last administered on 18:38; Admin Dose 10 MG; Start 02/20/17 at 17:30 Lorazepam (Ativan) 0.5 mg Q8H PRN PO ANXIETY Last administered on 02/23/17 05 :22; Admin Dose 0.5 MG; Start 02/20/17 at 18:00 Ondansetron HCl (Zofran Inj) 4 mg Q6H PRN IV NAUSEA AND/OR VOMITING Last administered on 02/24/17 19:13; Admin Dose 4 MG; Start 02/20/17 at 18:00 Acetaminophen (Tylenol Tab) 650 mg Q6H PRN PO PAIN LEVEL 1-3 OR FEVER; Start 02/20/17 at 18:00 Bisacodyl (Dulcolax) 5 mg DAILY PRN PO CONSTIPATION; Start 02/20/17 at 18:00 Pantoprazole (Protonix Tab) 40 mg DAILY@06 PO Last administered on 03/03/17 05 :37; Admin Dose 40 MG; Start 02/21/17 at 06:00 Nicotine (Nicoderm 14 Mg/ 24hr) 1 patch DAILY PRN TRANSDERM smoking Last administered on 02/26/17 21:11; Admin Dose 1 PATCH; Start 02/20/17 at 18:00 Lorazepam (Ativan) 2 mg Q10MIN PRN IV seizure; Start 02/20/17 at 18:00 Senna/Docusate Sodium 1 tab 1 tab Q12H PRN PO constipation; Start 02/23/17 at 11:00 Ceftriaxone Sodium 50 ml @ 100 mls/hr Q24H IVPB Last administered on 15:48; Admin Dose 100 MLS/HR; Start 02/25/17 at 16:00 Acetaminophen (Ofirmev 1000mg/ 100ml Iv) 100 ml @ 400 mls/hr Q6H IVPB Last administered on 03/03/17 13:12; Admin Dose 400 MLS/HR; Start 02/26/17 at 06:30 Gabapentin (Neurontin) 200 mg TID PO Last administered on 03/03/17 13:12; Admin Dose 200 MG; Start 02/26/17 at 09:00 Ferrous Sulfate (Ferrous Sulfate (Ec)) 325 mg Q2D PO Last administered on 12:00; Admin Dose 325 MG; Start 02/27/17 at 12:00 Hydromorphone HCl (Dilaudid SPECIAL EFFECTS PERSON) 0.2 MG/HR CONTINUOUS RATE ... Q4PCA IV Last administered on 03/03/17 07:07; Admin Dose 6 MG; Start 03/01/17 at 17:00 IV Flush (NS 10 ml) 10 ml PRN PRN IV IV PROTOCOL; Start 03/03/17 at 13:30 KATIE JONES Mar 03, 2017 14:18
[2017-03-03 14:27] VITALS: BP 126/71; RESP 20
[2017-03-03] MEDS: CEFTRIAXONE 2 GM/50 ML (PMX) 50 ML IVPB SCH (15:45)
[2017-03-03] MEDS ORDERED: SOD CHLORIDE 0.9% 100 ML ONE (16:37)
[2017-03-03 20:00] VITALS: BP 125/68; RESP 20
[2017-03-03] MEDS: ATORVASTATIN 40 MG TAB PO SCH (20:06)
[2017-03-04 02:13] VITALS: BP 108/63; RESP 19
[2017-03-04] MEDS: PANTOPRAZOLE (EC) 40 MG TAB PO SCH (05:24)
[2017-03-04] MEDS: HYDROmorphONE 0.2 MG/ML PCA IV SCH ×3 (05:32→18:14)
[2017-03-04] MEDS: ACETAMINOPHEN 1000MG/100ML IV 100 ML IVPB SCH ×3 (05:33→18:06)
--- NOTE | 2017-03-04 07:14 | CONS ---
Date/Time of Note Date/Time of Note DATE: 03/04/17 TIME: 07:13 Assessment/Plan Assessment/Plan Additional Assessment/Plan Patient's physical findings are not much changed however he continues to complain of excruciating pain. According to my examination nursing staff he does not appear to be in severe pain without moaning groaning grimacing he smiles he is engaging in conversation but when questions are directed concerning his pain management he scales a 10/10. My concern is and is always been that he is using pain control medications and response of physical stressors and anxiety. I have discussed this with him in the past. Consultation Date/Type/Reason Admit Date/Time Feb 20, 2017 at 16:35 Initial Consult Date Type of Consultation: Pain Exam/Review of Systems Vital Signs Vitals Vital Signs Date Time Temp Pulse Resp B/P Pulse Ox O2 Delivery O2 Flow Rate FiO2 03/04/17 05:00 18 03/04/17 02:13 98.4 67 108/63 96 02/28/17 09:27 Room Air Intake and Output 03/03/17 03/03/17 03/04/17 14:59 22:59 06:59 Intake Total 100 ml 1550 ml 920 ml Output Total 600 ml Balance 100 ml 1550 ml 320 ml Exam Psych: anxiety Respiratory: clear to auscultation, normal air movement Cardiovascular: nl pulses, regular rate and rhythm Results Result Diagram: 03/03/17 0500 03/03/17 0500 Medications Medications Current Medications Amlodipine Besylate (Norvasc) 10 mg DAILY PO Last administered on 03/03/17 09: 26; Admin Dose 10 MG; Start 02/20/17 at 17:30 Atorvastatin Calcium (Lipitor) 40 mg QHS PO Last administered on 03/03/17 20: 06; Admin Dose 40 MG; Start 02/20/17 at 21:00 Metoprolol Tartrate (Lopressor) 50 mg BID PO Last administered on 03/03/17 20: 07; Admin Dose 50 MG; Start 02/20/17 at 21:00 Benazepril HCl (Lotensin) 40 mg DAILY PO Last administered on 03/03/17 09:25; Admin Dose 40 MG; Start 02/21/17 at 09:00 Hydralazine HCl (Apresoline) 10 mg Q4H PRN IV sbp>160 Last administered on 18:38; Admin Dose 10 MG; Start 02/20/17 at 17:30 Lorazepam (Ativan) 0.5 mg Q8H PRN PO ANXIETY Last administered on 02/23/17 05 :22; Admin Dose 0.5 MG; Start 02/20/17 at 18:00 Ondansetron HCl (Zofran Inj) 4 mg Q6H PRN IV NAUSEA AND/OR VOMITING Last administered on 02/24/17 19:13; Admin Dose 4 MG; Start 02/20/17 at 18:00 Acetaminophen (Tylenol Tab) 650 mg Q6H PRN PO PAIN LEVEL 1-3 OR FEVER; Start 02/20/17 at 18:00 Bisacodyl (Dulcolax) 5 mg DAILY PRN PO CONSTIPATION; Start 02/20/17 at 18:00 Pantoprazole (Protonix Tab) 40 mg DAILY@06 PO Last administered on 03/04/17 05 :24; Admin Dose 40 MG; Start 02/21/17 at 06:00 Nicotine (Nicoderm 14 Mg/ 24hr) 1 patch DAILY PRN TRANSDERM smoking Last administered on 02/26/17 21:11; Admin Dose 1 PATCH; Start 02/20/17 at 18:00 Lorazepam (Ativan) 2 mg Q10MIN PRN IV seizure; Start 02/20/17 at 18:00 Senna/Docusate Sodium 1 tab 1 tab Q12H PRN PO constipation; Start 02/23/17 at 11:00 Ceftriaxone Sodium 50 ml @ 100 mls/hr Q24H IVPB Last administered on 15:45; Admin Dose 100 MLS/HR; Start 02/25/17 at 16:00 Acetaminophen (Ofirmev 1000mg/ 100ml Iv) 100 ml @ 400 mls/hr Q6H IVPB Last administered on 03/04/17 05:33; Admin Dose 400 MLS/HR; Start 02/26/17 at 06:30 Gabapentin (Neurontin) 200 mg TID PO Last administered on 03/03/17 20:07; Admin Dose 200 MG; Start 02/26/17 at 09:00 Ferrous Sulfate (Ferrous Sulfate (Ec)) 325 mg Q2D PO Last administered on 12:00; Admin Dose 325 MG; Start 02/27/17 at 12:00 Hydromorphone HCl (Dilaudid EMS INSTRUCTOR) 0.4 MG/HR CONTINUOUS R... Q4PCA IV Last administered on 03/04/17t 05:32; Admin Dose 6 MG; Start 03/01/17 at 17:00 IV Flush (NS 10 ml) 10 ml PRN PRN IV IV PROTOCOL; Start 03/03/17 at 13:30 SCOTTY HUSSEIN Mar 04, 2017 07:14
--- NOTE | 2017-03-04 07:16 | CONS ---
Date/Time of Note Date/Time of Note DATE: 03/04/17 TIME: 07:14 Assessment/Plan Assessment/Plan Additional Assessment/Plan Extensive conversation with patient today concerning ongoing pain management. Please refer to my prior note my opinion has not significantly changed that patient is using a control medication mourns response to anxiety. Because he has not had successful placement for rehabilitation I have continue with just a DISTRIBUTION ENGINEER pump with the understanding he will be switched over to oral pain control medications at the time of discharge. He is on a low dose of DISTRIBUTION ENGINEER should not be difficult to transition him. I have explained to him the rationale for not increasing the dosages as he is not in significant pain by subjective criteria and nursing's documentation. However as a compromise I will increase DISTRIBUTION ENGINEER to dose no higher than 0.8 mg of Dilaudid per hour and the DISTRIBUTION ENGINEER. Extensive conversation once again trying lower patient's anxiety and give him some goals of care in the future. Consultation Date/Type/Reason Admit Date/Time Feb 20, 2017 at 16:35 Type of Consultation: Pain Exam/Review of Systems Vital Signs Vitals Vital Signs Date Time Temp Pulse Resp B/P Pulse Ox O2 Delivery O2 Flow Rate FiO2 03/04/17 05:00 18 03/04/17 02:13 98.4 67 108/63 96 02/28/17 09:27 Room Air Intake and Output 03/03/17 03/03/17 03/04/17 14:59 22:59 06:59 Intake Total 100 ml 1550 ml 920 ml Output Total 600 ml Balance 100 ml 1550 ml 320 ml Results Result Diagram: 03/03/17 0500 03/03/17 0500 Medications Medications Current Medications Amlodipine Besylate (Norvasc) 10 mg DAILY PO Last administered on 03/03/17 09: 26; Admin Dose 10 MG; Start 02/20/17 at 17:30 Atorvastatin Calcium (Lipitor) 40 mg QHS PO Last administered on 03/03/17 20: 06; Admin Dose 40 MG; Start 02/20/17 at 21:00 Metoprolol Tartrate (Lopressor) 50 mg BID PO Last administered on 03/03/17 20: 07; Admin Dose 50 MG; Start 02/20/17 at 21:00 Benazepril HCl (Lotensin) 40 mg DAILY PO Last administered on 03/03/17 09:25; Admin Dose 40 MG; Start 02/21/17 at 09:00 Hydralazine HCl (Apresoline) 10 mg Q4H PRN IV sbp>160 Last administered on 18:38; Admin Dose 10 MG; Start 02/20/17 at 17:30 Lorazepam (Ativan) 0.5 mg Q8H PRN PO ANXIETY Last administered on 02/23/17 05 :22; Admin Dose 0.5 MG; Start 02/20/17 at 18:00 Ondansetron HCl (Zofran Inj) 4 mg Q6H PRN IV NAUSEA AND/OR VOMITING Last administered on 02/24/17 19:13; Admin Dose 4 MG; Start 02/20/17 at 18:00 Acetaminophen (Tylenol Tab) 650 mg Q6H PRN PO PAIN LEVEL 1-3 OR FEVER; Start 02/20/17 at 18:00 Bisacodyl (Dulcolax) 5 mg DAILY PRN PO CONSTIPATION; Start 02/20/17 at 18:00 Pantoprazole (Protonix Tab) 40 mg DAILY@06 PO Last administered on 03/04/17 05 :24; Admin Dose 40 MG; Start 02/21/17 at 06:00 Nicotine (Nicoderm 14 Mg/ 24hr) 1 patch DAILY PRN TRANSDERM smoking Last administered on 02/26/17 21:11; Admin Dose 1 PATCH; Start 02/20/17 at 18:00 Lorazepam (Ativan) 2 mg Q10MIN PRN IV seizure; Start 02/20/17 at 18:00 Senna/Docusate Sodium 1 tab 1 tab Q12H PRN PO constipation; Start 02/23/17 at 11:00 Ceftriaxone Sodium 50 ml @ 100 mls/hr Q24H IVPB Last administered on 15:45; Admin Dose 100 MLS/HR; Start 02/25/17 at 16:00 Acetaminophen (Ofirmev 1000mg/ 100ml Iv) 100 ml @ 400 mls/hr Q6H IVPB Last administered on 03/04/17 05:33; Admin Dose 400 MLS/HR; Start 02/26/17 at 06:30 Gabapentin (Neurontin) 200 mg TID PO Last administered on 03/03/17 20:07; Admin Dose 200 MG; Start 02/26/17 at 09:00 Ferrous Sulfate (Ferrous Sulfate (Ec)) 325 mg Q2D PO Last administered on 12:00; Admin Dose 325 MG; Start 02/27/17 at 12:00 Hydromorphone HCl (Dilaudid DISTRIBUTION ENGINEER) 0.4 MG/HR CONTINUOUS R... Q4PCA IV Last administered on 03/04/17 05:32; Admin Dose 6 MG; Start 03/01/17 at 17:00 IV Flush (NS 10 ml) 10 ml PRN PRN IV IV PROTOCOL; Start 03/03/17 at 13:30 SCOTTY HUSSEIN Mar 04, 2017 07:16
[2017-03-04 07:52] VITALS: BP 112/69; RESP 18
[2017-03-04 08:36] LABS: BASOPHIL # 0.1 10^3/ul (0.0-0.1); BASOPHILS % 1.2 % (0.0-2.0); EOSINOPHILS # 0.3 10^3/ul (0.0-0.5); EOSINOPHILS % 2.9 % (0.0-7.0); HEMOGLOBIN 8.9 g/dl (14.0-18.0); LYMPHOCYTES # 1.6 10^3/ul (0.8-2.9); LYMPHOCYTES % 18.1 % (15.0-51.0); MEAN CORPUSCULAR HEMOGLOBIN 27.9 pg (29.0-33.0); MEAN CORPUSCULAR HGB CONC 31.8 g/dl (32.0-37.0); MEAN CORPUSCULAR VOLUME 87.8 fl (82.0-101.0); MEAN PLATELET VOLUME 9.2 fl (7.4-10.4); MONOCYTE # 1.3 10^3/ul (0.3-0.9); NEUTROPHIL # 5.3 10^3/ul (1.6-7.5); NEUTROPHILS % 61.3 % (39.0-77.0); PLATELET COUNT 637 10^3/UL (140-415); RED BLOOD COUNT 3.19 10^6/ul (4.70-6.10); RED CELL DISTRIBUTION WIDTH 15.7 % (11.5-14.5); WHITE BLOOD COUNT 8.6 10^3/ul (4.8-10.8)
[2017-03-04 08:42] LABS: MONOCYTES % 15.3 % (0.0-11.0)
[2017-03-04 09:06] LABS: ALBUMIN 3.5 g/dl (3.3-4.9); CREATININE 1.46 mg/dl (0.61-1.24); MAGNESIUM 1.9 mg/dl (1.7-2.5); PHOSPHORUS 5.3 mg/dl (2.5-4.9); POTASSIUM 4.9 mmol/L (3.5-5.1)
[2017-03-04] MEDS: GABAPENTIN 100 MG CAP PO SCH ×3 (09:23→21:40)
[2017-03-04] MEDS: BENAZEPRIL 40 MG TAB PO SCH (09:23)
[2017-03-04] MEDS: METOPROLOL 50 MG TAB PO SCH ×2 (09:23→21:41)
[2017-03-04] MEDS: AMLODIPINE 10 MG TAB PO SCH (09:23)
[2017-03-04] MEDS: SOD CHLORIDE 0.9% 1,000 ML IV SCH ×2 (12:00→20:30)
--- NOTE | 2017-03-04 12:31 | CONS ---
Date/Time of Note Date/Time of Note DATE: 03/04/17 TIME: 12:30 Assessment/Plan Assessment/Plan Chief Complaint/Hosp Course SUBJECTIVE: No events overnight. No fevers, alert, looks comfortable. MICROBIOLOGY: Right shoulder and blood culture growing Staphylococcus aureus. Repeat blood cultures preliminary negative. ALL: PCN, Sulfa ANTIMICROBIALS: Rocephin PHYSICAL EXAMINATION: GENERAL: Well-developed, elderly white man who is alert, in no distress. HEENT: Head atraumatic, normocephalic. Sclerae anicteric. Buccal mucosa pink. NECK: Supple. CHEST: Rise symmetrical. Breath sounds clear. HEART: S1, S2. ABDOMEN: Soft, bowel tones present. EXTREMITIES: With right shoulder dressing clean, dry and intact. SKIN: No jaundice, rashes, cyanosis. ASSESSMENT: 1. Right shoulder DWIGHT infected arthroplasty, status post surgical intervention with revision arthroplasty, removal of humerus component and placement of antibiotic spacer 04/26/16 2. Oxacillin sensitive Staphylococcus aureus bacteremia secondary to above. 3. Hypertension. 4. History of bilateral shoulder replacement. PLAN: Remains stable, pending dc on current abx for 6 weeks, f/u with ortho [facility] staff Problems: Consultation Date/Type/Reason Admit Date/Time Feb 20, 2017 at 16:35 Type of Consultation: id Exam/Review of Systems Vital Signs Vitals Vital Signs Date Time Temp Pulse Resp B/P Pulse Ox O2 Delivery O2 Flow Rate FiO2 03/04/17 09:00 19 03/04/17 07:52 97.5 79 112/69 92 02/28/17 09:27 Room Air Intake and Output 03/03/17 03/03/17 03/04/17 15:00 23:00 07:00 Intake Total 100 ml 1550 ml 920 ml Output Total 600 ml Balance 100 ml 1550 ml 320 ml Results Result Diagram: 03/04/17 0814 03/04/17 0814 Results 24 hrs Laboratory Tests Test 03/04/17 08:14 White Blood Count 8.6 Red Blood Count 3.19 L Hemoglobin 8.9 L Hematocrit 28.0 L Mean Corpuscular Volume 87.8 Mean Corpuscular Hemoglobin 27.9 L Mean Corpuscular Hemoglobin Concent 31.8 L Red Cell Distribution Width 15.7 H Platelet Count 637 H Mean Platelet Volume 9.2 Neutrophils % 61.3 Lymphocytes % 18.1 Monocytes % 15.3 H Eosinophils % 2.9 Basophils % 1.2 Nucleated Red Blood Cells % 0.0 Neutrophils # 5.3 Lymphocytes # 1.6 Monocytes # 1.3 H Eosinophils # 0.3 Basophils # 0.1 Nucleated Red Blood Cells # 0.0 Sodium Level 136 Potassium Level 4.9 Chloride Level 97 Carbon Dioxide Level 31 Anion Gap 13 Blood Urea Nitrogen 18 Creatinine 1.46 H Glucose Level 116 Calcium Level 9.0 Phosphorus Level 5.3 H Magnesium Level 1.9 Albumin 3.5 Medications Medications Current Medications Amlodipine Besylate (Norvasc) 10 mg DAILY PO Last administered on 03/04/17 09: 23; Admin Dose 10 MG; Start 02/20/17 at 17:30 Atorvastatin Calcium (Lipitor) 40 mg QHS PO Last administered on 03/03/17 20: 06; Admin Dose 40 MG; Start 02/20/17 at 21:00 Metoprolol Tartrate (Lopressor) 50 mg BID PO Last administered on 03/04/17 09: 23; Admin Dose 50 MG; Start 02/20/17 at 21:00 Benazepril HCl (Lotensin) 40 mg DAILY PO Last administered on 03/04/17 09:23; Admin Dose 40 MG; Start 02/21/17 at 09:00 Hydralazine HCl (Apresoline) 10 mg Q4H PRN IV sbp>160 Last administered on 18:38; Admin Dose 10 MG; Start 02/20/17 at 17:30 Lorazepam (Ativan) 0.5 mg Q8H PRN PO ANXIETY Last administered on 02/23/17 05 :22; Admin Dose 0.5 MG; Start 02/20/17 at 18:00 Ondansetron HCl (Zofran Inj) 4 mg Q6H PRN IV NAUSEA AND/OR VOMITING Last administered on 02/24/17 19:13; Admin Dose 4 MG; Start 02/20/17 at 18:00 Acetaminophen (Tylenol Tab) 650 mg Q6H PRN PO PAIN LEVEL 1-3 OR FEVER; Start 02/20/17 at 18:00 Bisacodyl (Dulcolax) 5 mg DAILY PRN PO CONSTIPATION; Start 02/20/17 at 18:00 Pantoprazole (Protonix Tab) 40 mg DAILY@06 PO Last administered on 03/04/17 05 :24; Admin Dose 40 MG; Start 02/21/17 at 06:00 Nicotine (Nicoderm 14 Mg/ 24hr) 1 patch DAILY PRN TRANSDERM smoking Last administered on 02/26/17 21:11; Admin Dose 1 PATCH; Start 02/20/17 at 18:00 Lorazepam (Ativan) 2 mg Q10MIN PRN IV seizure; Start 02/20/17 at 18:00 Senna/Docusate Sodium 1 tab 1 tab Q12H PRN PO constipation; Start 02/23/17 at 11:00 Ceftriaxone Sodium 50 ml @ 100 mls/hr Q24H IVPB Last administered on 15:45; Admin Dose 100 MLS/HR; Start 02/25/17 at 16:00 Acetaminophen (Ofirmev 1000mg/ 100ml Iv) 100 ml @ 400 mls/hr Q6H IVPB Last administered on 03/04/17 12:05; Admin Dose 400 MLS/HR; Start 02/26/17 at 06:30 Gabapentin (Neurontin) 200 mg TID PO Last administered on 03/04/17 12:05; Admin Dose 200 MG; Start 02/26/17 at 09:00 Ferrous Sulfate (Ferrous Sulfate (Ec)) 325 mg Q2D PO Last administered on 12:00; Admin Dose 325 MG; Start 02/27/17 at 12:00 Hydromorphone HCl (Dilaudid MOTION PICTURE CAMERA OPERATOR) 0.4 MG/HR CONTINUOUS R... Q4PCA IV Last administered on 03/04/17 12:04; Admin Dose 6 MG; Start 03/01/17 at 17:00 IV Flush 10 ml 10 ml PRN PRN IV IV PROTOCOL; Start 03/03/17 at 13:30 Sodium Chloride (NS) 1,000 ml @ 100 mls/hr Q10H IV Last administered on 12:00; Admin Dose 100 MLS/HR; Start 03/04/17 at 10:30 Sertraline HCl (Zoloft) 25 mg DAILY PO ; Start 03/04/17 at 12:30 MICHELE COUCH NP Mar 04, 2017 12:31
--- NOTE | 2017-03-04 14:21 | PN ---
Date/Time of Note Date/Time of Note DATE: 03/04/17 TIME: 14:18 Assessment/Plan VTE Prophylaxis VTE Prophylaxis Intervention: ambulation, SCD's Lines/Catheters IV Catheter Type (from Nrsg): PICC Line Central line still needed: Yes Urinary Cath still in place: No Assessment/Plan Chief Complaint/Hosp Course s: 11.25 No new complaints, still severe pain in R shoulder 11.26 no acute overnight events, no new complaints 12.5 still severe R arm pain 12.6 arm pain continues, but controlled with increased pain DOG BEAUTICIAN rate o: Physical exam General: Patient is laying in bed and answers questions appropriately Mentation: Patient is alert and oriented 4, Head: Normocephalic atraumatic Eyes: EOMI, pupils reactive to light Neck: Supple, nontender, midline Respiratory: Clear to auscultation bilaterally Cardiovascular: regular rate, no obvious murmurs Gastrointestinal: non-tender to palpation, bowel sounds heard. Neurological: Moves all extremities spontaneously Skin: No new skin lesions musculoskeletal: R shoulder moderately tender Patient is a 62-year-old male with history of bilateral shoulder replacement who presents with worsening right shoulder pain and questionable effusion Assessment and plan Assessment/Plan # Right shoulder pain s/p removal of hardware 02/24/17 - Ortho on board and consultation greatly appreciated. Patient to keep right arm in sling but has not been very compliant. Okay for discharge from their standpoints. Will need to follow up for placement of permanent hardware once infection resolved - Culture growing Staph Aureus and ID on board. consultation greatly appreciated. Patient will need 6 weeks for Ceftriaxone upon discharge (started on 02/25). PICC line in place and CM working on placement of SNF if patient unable to find friends to stay with - Final repeat wound cultures negative - Remains afebrile with normal WBC - Pain control. Difficult to determine if patient really in pain or pain seeking. Will talk with both arms and stop occasionally complaining of pain which subsides in seconds. Appears comfortable during entire encounter. #mood disorder -was previous on zoloft, will restart as may help with some pain issues #VICKI -? volume depletion, restarting fluids, if patient's cr does not return to baseline, will consider nephrology consult #. Hypertensive urgency-resolved - Continue current medications and will adjust as needed #. Anemia, iron deficiency - Mild, continue to monitor - iron studies show very low iron levels. Started on iron supplement #. Hypokalemia- resolved - Continue to monitor #. Tachycardia - Likely secondary to possible infection and pain - stable, monitor #. hyposmolar hyponatremia- resolved - improving after started PO diet again #. Disposition - Will require Ceftriaxone 2mg IV q 24 hours for 6 weeks total (started on 02/25 ) - Awaiting placement - Pain management on board for pain control, still requiring dilaudid DOG BEAUTICIAN, will need to cut down before DC. Will dispo once accepting facility Problems: Exam/Review of Systems Vital Signs Vitals Vital Signs Date Time Temp Pulse Resp B/P Pulse Ox O2 Delivery O2 Flow Rate FiO2 03/04/17 09:00 19 03/04/17 07:52 97.5 79 112/69 92 02/28/17 09:27 Room Air Intake and Output 03/03/17 03/03/17 03/04/17 15:00 23:00 07:00 Intake Total 100 ml 1550 ml 920 ml Output Total 600 ml Balance 100 ml 1550 ml 320 ml Results Result Diagram: 03/04/17 0814 03/04/17 0814 Results 24 hrs Laboratory Tests Test 03/04/17 08:14 White Blood Count 8.6 Red Blood Count 3.19 L Hemoglobin 8.9 L Hematocrit 28.0 L Mean Corpuscular Volume 87.8 Mean Corpuscular Hemoglobin 27.9 L Mean Corpuscular Hemoglobin Concent 31.8 L Red Cell Distribution Width 15.7 H Platelet Count 637 H Mean Platelet Volume 9.2 Neutrophils % 61.3 Lymphocytes % 18.1 Monocytes % 15.3 H Eosinophils % 2.9 Basophils % 1.2 Nucleated Red Blood Cells % 0.0 Neutrophils # 5.3 Lymphocytes # 1.6 Monocytes # 1.3 H Eosinophils # 0.3 Basophils # 0.1 Nucleated Red Blood Cells # 0.0 Sodium Level 136 Potassium Level 4.9 Chloride Level 97 Carbon Dioxide Level 31 Anion Gap 13 Blood Urea Nitrogen 18 Creatinine 1.46 H Glucose Level 116 Calcium Level 9.0 Phosphorus Level 5.3 H Magnesium Level 1.9 Albumin 3.5 Medications Medications Current Medications Amlodipine Besylate (Norvasc) 10 mg DAILY PO Last administered on 03/04/17t 09: 23; Admin Dose 10 MG; Start 02/20/17 at 17:30 Atorvastatin Calcium (Lipitor) 40 mg QHS PO Last administered on 03/03/17 20: 06; Admin Dose 40 MG; Start 02/20/17 at 21:00 Metoprolol Tartrate (Lopressor) 50 mg BID PO Last administered on 03/04/17 09: 23; Admin Dose 50 MG; Start 02/20/17 at 21:00 Benazepril HCl (Lotensin) 40 mg DAILY PO Last administered on 03/04/17 09:23; Admin Dose 40 MG; Start 02/21/17 at 09:00 Hydralazine HCl (Apresoline) 10 mg Q4H PRN IV sbp>160 Last administered on 18:38; Admin Dose 10 MG; Start 02/20/17 at 17:30 Lorazepam (Ativan) 0.5 mg Q8H PRN PO ANXIETY Last administered on 02/23/17 05 :22; Admin Dose 0.5 MG; Start 02/20/17 at 18:00 Ondansetron HCl (Zofran Inj) 4 mg Q6H PRN IV NAUSEA AND/OR VOMITING Last administered on 02/24/17 19:13; Admin Dose 4 MG; Start 02/20/17 at 18:00 Acetaminophen (Tylenol Tab) 650 mg Q6H PRN PO PAIN LEVEL 1-3 OR FEVER; Start 02/20/17 at 18:00 Bisacodyl (Dulcolax) 5 mg DAILY PRN PO CONSTIPATION; Start 02/20/17 at 18:00 Pantoprazole (Protonix Tab) 40 mg DAILY@06 PO Last administered on 03/04/17 05 :24; Admin Dose 40 MG; Start 02/21/17 at 06:00 Nicotine (Nicoderm 14 Mg/ 24hr) 1 patch DAILY PRN TRANSDERM smoking Last administered on 02/26/17 21:11; Admin Dose 1 PATCH; Start 02/20/17 at 18:00 Lorazepam (Ativan) 2 mg Q10MIN PRN IV seizure; Start 02/20/17 at 18:00 Senna/Docusate Sodium 1 tab 1 tab Q12H PRN PO constipation; Start 02/23/17 at 11:00 Ceftriaxone Sodium 50 ml @ 100 mls/hr Q24H IVPB Last administered on 15:45; Admin Dose 100 MLS/HR; Start 02/25/17 at 16:00 Acetaminophen (Ofirmev 1000mg/ 100ml Iv) 100 ml @ 400 mls/hr Q6H IVPB Last administered on 03/04/17 12:05; Admin Dose 400 MLS/HR; Start 02/26/17 at 06:30 Gabapentin (Neurontin) 200 mg TID PO Last administered on 03/04/17 12:05; Admin Dose 200 MG; Start 02/26/17 at 09:00 Ferrous Sulfate (Ferrous Sulfate (Ec)) 325 mg Q2D PO Last administered on 12:00; Admin Dose 325 MG; Start 02/27/17 at 12:00 Hydromorphone HCl (Dilaudid DOG BEAUTICIAN) 0.4 MG/HR CONTINUOUS R... Q4PCA IV Last administered on 03/04/17 12:04; Admin Dose 6 MG; Start 03/01/17 at 17:00 IV Flush 10 ml 10 ml PRN PRN IV IV PROTOCOL; Start 03/03/17 at 13:30 Sodium Chloride (NS) 1,000 ml @ 100 mls/hr Q10H IV Last administered on 12:00; Admin Dose 100 MLS/HR; Start 03/04/17 at 10:30 Sertraline HCl (Zoloft) 25 mg DAILY PO ; Start 03/04/17 at 12:30 KATIE JONES Mar 04, 2017 14:21
[2017-03-04] MEDS: SERTRALINE 50 MG TAB PO SCH (15:35)
[2017-03-04] MEDS: CEFTRIAXONE 2 GM/50 ML (PMX) 50 ML IVPB SCH (15:35)
[2017-03-04 16:55] VITALS: BP 100/59; RESP 20
[2017-03-04 19:59] VITALS: BP 116/64; RESP 20
[2017-03-04] MEDS: ATORVASTATIN 40 MG TAB PO SCH (21:40)
[2017-03-05] MEDS: ACETAMINOPHEN 1000MG/100ML IV 100 ML IVPB SCH ×4 (00:07→12:40)
[2017-03-05 02:19] VITALS: BP 121/68; RESP 20
[2017-03-05] MEDS: HYDROmorphONE 0.2 MG/ML PCA IV SCH ×2 (02:32→09:42)
[2017-03-05] MEDS: SOD CHLORIDE 0.9% 1,000 ML IV SCH ×3 (02:33→13:51)
[2017-03-05] MEDS: PANTOPRAZOLE (EC) 40 MG TAB PO SCH (05:17)
[2017-03-05] MEDS: BENAZEPRIL 40 MG TAB PO SCH (08:14)
[2017-03-05] MEDS: AMLODIPINE 10 MG TAB PO SCH (08:15)
[2017-03-05] MEDS: METOPROLOL 50 MG TAB PO SCH (08:15)
[2017-03-05] MEDS: SERTRALINE 50 MG TAB PO SCH (08:15)
[2017-03-05] MEDS: GABAPENTIN 100 MG CAP PO SCH ×2 (08:15→12:41)
[2017-03-05 08:27] VITALS: BP 129/68; RESP 18
--- NOTE | 2017-03-05 10:17 | PN ---
Date/Time of Note Date/Time of Note DATE: 03/05/17 TIME: 10:12 Assessment/Plan VTE Prophylaxis VTE Prophylaxis Intervention: ambulation Lines/Catheters IV Catheter Type (from Nrsg): PICC Line Central line still needed: Yes Urinary Cath still in place: No Assessment/Plan Assessment/Plan Pending placement at facility, currently receiving IV antibiotics. Appreciate ID , IM, and Pain consults. I told Al he doesnt have to use his sling. He may rest in any position that is comfortable. The shoulder will be painful until we do the final revision surgery, the cement spacer he currently has is not a comfortable product, and his pain is appropriate for his situation, but there is no better way to accomplish what we are trying to do. His sutures were removed today and steristrips applied, he will follow up with me in 2-3 weeks after discharge. Subjective 24 Hr Interval Summary Free Text/Dictation Al still on 4th floor, doing well. Vitals stable. Pain appropriate. Exam/Review of Systems Vital Signs Vitals Vital Signs Date Time Temp Pulse Resp B/P Pulse Ox O2 Delivery O2 Flow Rate FiO2 03/05/17 09:51 18 03/05/17 08:27 98.6 79 129/68 95 Intake and Output 03/04/17 03/04/17 03/05/17 14:59 22:59 06:59 Intake Total 100 ml 1590 ml 1080 ml Balance 100 ml 1590 ml 1080 ml Exam incision c/d/i appropriate tenderness sutures in tact. ROM appropriate NVI Results Result Diagram: 03/04/1714 03/04/1714 Medications Medications Current Medications Amlodipine Besylate (Norvasc) 10 mg DAILY PO Last administered on 03/05/17 08: 15; Admin Dose 10 MG; Start 02/20/17 at 17:30 Atorvastatin Calcium (Lipitor) 40 mg QHS PO Last administered on 03/04/17 21: 40; Admin Dose 40 MG; Start 02/20/17 at 21:00 Metoprolol Tartrate (Lopressor) 50 mg BID PO Last administered on 03/05/17 08: 15; Admin Dose 50 MG; Start 02/20/17 at 21:00 Benazepril HCl (Lotensin) 40 mg DAILY PO Last administered on 03/05/17 08:14; Admin Dose 40 MG; Start 02/21/17 at 09:00 Hydralazine HCl (Apresoline) 10 mg Q4H PRN IV sbp>160 Last administered on 18:38; Admin Dose 10 MG; Start 02/20/17 at 17:30 Lorazepam (Ativan) 0.5 mg Q8H PRN PO ANXIETY Last administered on 02/23/17 05 :22; Admin Dose 0.5 MG; Start 02/20/17 at 18:00 Ondansetron HCl (Zofran Inj) 4 mg Q6H PRN IV NAUSEA AND/OR VOMITING Last administered on 02/24/17 19:13; Admin Dose 4 MG; Start 02/20/17 at 18:00 Acetaminophen (Tylenol Tab) 650 mg Q6H PRN PO PAIN LEVEL 1-3 OR FEVER; Start 02/20/17 at 18:00 Bisacodyl (Dulcolax) 5 mg DAILY PRN PO CONSTIPATION; Start 02/20/17 at 18:00 Pantoprazole (Protonix Tab) 40 mg DAILY@06 PO Last administered on 03/05/17 05 :17; Admin Dose 40 MG; Start 02/21/17 at 06:00 Nicotine (Nicoderm 14 Mg/ 24hr) 1 patch DAILY PRN TRANSDERM smoking Last administered on 02/26/17 21:11; Admin Dose 1 PATCH; Start 02/20/17 at 18:00 Lorazepam (Ativan) 2 mg Q10MIN PRN IV seizure; Start 02/20/17 at 18:00 Senna/Docusate Sodium 1 tab 1 tab Q12H PRN PO constipation; Start 02/23/17 at 11:00 Ceftriaxone Sodium 50 ml @ 100 mls/hr Q24H IVPB Last administered on 15:35; Admin Dose 100 MLS/HR; Start 02/25/17 at 16:00 Acetaminophen (Ofirmev 1000mg/ 100ml Iv) 100 ml @ 400 mls/hr Q6H IVPB Last administered on 03/05/17 05:37; Admin Dose 400 MLS/HR; Start 02/26/17 at 06:30 Gabapentin (Neurontin) 200 mg TID PO Last administered on 03/05/17 08:15; Admin Dose 200 MG; Start 02/26/17 at 09:00 Ferrous Sulfate (Ferrous Sulfate (Ec)) 325 mg Q2D PO Last administered on 12:00; Admin Dose 325 MG; Start 02/27/17 at 12:00 Hydromorphone HCl (Dilaudid GEOTECHNICAL OPERATING ENGINEER) 0.4 MG/HR CONTINUOUS R... Q4PCA IV Last administered on 03/05/17 09:42; Admin Dose 6 MG; Start 03/01/17 at 17:00 IV Flush 10 ml 10 ml PRN PRN IV IV PROTOCOL; Start 03/03/17 at 13:30 Sodium Chloride (NS) 1,000 ml @ 100 mls/hr Q10H IV Last administered on 02:33; Admin Dose 100 MLS/HR; Start 03/04/17 at 10:30 Sertraline HCl (Zoloft) 25 mg DAILY PO Last administered on 03/05/17 08:15; Admin Dose 25 MG; Start 03/04/17 at 12:30 SARANYA JONES MD Mar 05, 2017 10:17
[2017-03-05] MEDS ORDERED: QUETIAPINE 25 MG TAB PO SCH (12:00)
[2017-03-05] MEDS: FERROUS SULFATE (EC) 325 MG TAB PO SCH (12:41)
--- NOTE | 2017-03-05 13:31 | PN ---
Date/Time of Note Date/Time of Note DATE: 03/05/17 TIME: 13: Assessment/Plan VTE Prophylaxis VTE Prophylaxis Intervention: ambulation, SCD's Lines/Catheters IV Catheter Type (from Nrsg): PICC Line Central line still needed: Yes Urinary Cath still in place: No Assessment/Plan Chief Complaint/Hosp Course s: 11.25 No new complaints, still severe pain in R shoulder 11.26 no acute overnight events, no new complaints 12.5 still severe R arm pain 12.6 arm pain continues, but controlled with increased pain PROJECT DEVELOPMENT DIRECTOR rate 12.7 severe shoulder pain, states dilaudid PROJECT DEVELOPMENT DIRECTOR is not enough o: Physical exam General: Patient is laying in bed and answers questions appropriately Mentation: Patient is alert and oriented 4, Head: Normocephalic atraumatic Eyes: EOMI, pupils reactive to light Neck: Supple, nontender, midline Respiratory: Clear to auscultation bilaterally Cardiovascular: regular rate, no obvious murmurs Gastrointestinal: non-tender to palpation, bowel sounds heard. Neurological: Moves all extremities spontaneously Skin: No new skin lesions musculoskeletal: R shoulder moderately tender Patient is a 62-year-old male with history of bilateral shoulder replacement who presents with worsening right shoulder pain and questionable effusion Assessment and plan Assessment/Plan # Right shoulder pain s/p removal of hardware 02/24/17 - Ortho on board and consultation greatly appreciated. Patient to keep right arm in sling but has not been very compliant. Okay for discharge from their standpoints. Will need to follow up for placement of permanent hardware once infection resolved - Culture growing Staph Aureus and ID on board. consultation greatly appreciated. Patient will need 6 weeks for Ceftriaxone upon discharge (started on 02/25). PICC line in place and CM working on placement of SNF if patient unable to find friends to stay with - Final repeat wound cultures negative - Remains afebrile with normal WBC - Pain control. Difficult to determine if patient really in pain or pain seeking. Will talk with both arms and stop occasionally complaining of pain which subsides in seconds. Appears comfortable during entire encounter. #mood disorder -was previous on zoloft, will restart as may help with some pain issues #VICKI -? volume depletion, restarting fluids, if patient's cr does not return to baseline, will consider nephrology consult #. Hypertensive urgency-resolved - Continue current medications and will adjust as needed #. Anemia, iron deficiency - Mild, continue to monitor - iron studies show very low iron levels. Started on iron supplement #. Hypokalemia- resolved - Continue to monitor #. Tachycardia - Likely secondary to possible infection and pain - stable, monitor #. hyposmolar hyponatremia- resolved - improving after started PO diet again #. Disposition - Will require Ceftriaxone 2mg IV q 24 hours for 6 weeks total (started on 02/25 ) - placement at [facility] almost complete, have to take patient off IV dilaudid king maker, will consult with pain management with best mode of treatment. - hopeful transfer to [facility] tomorrow, or thursday once oral regimen is achieved Problems: Exam/Review of Systems Vital Signs Vitals Vital Signs Date Time Temp Pulse Resp B/P Pulse Ox O2 Delivery O2 Flow Rate FiO2 03/05/17 12:43 18 03/05/17 08:27 98.6 79 129/68 95 Intake and Output 03/04/17 03/04/17 03/05/17 15:00 23:00 07:00 Intake Total 100 ml 1590 ml 1080 ml Balance 100 ml 1590 ml 1080 ml Results Result Diagram: 03/04/1714 03/04/1714 Medications Medications Current Medications Amlodipine Besylate (Norvasc) 10 mg DAILY PO Last administered on 03/05/17 08: 15; Admin Dose 10 MG; Start 02/20/17 at 17:30 Atorvastatin Calcium (Lipitor) 40 mg QHS PO Last administered on 03/04/17 21: 40; Admin Dose 40 MG; Start 02/20/17 at 21:00 Metoprolol Tartrate (Lopressor) 50 mg BID PO Last administered on 03/05/17 08: 15; Admin Dose 50 MG; Start 02/20/17 at 21:00 Benazepril HCl (Lotensin) 40 mg DAILY PO Last administered on 03/05/17 08:14; Admin Dose 40 MG; Start 02/21/17 at 09:00 Hydralazine HCl (Apresoline) 10 mg Q4H PRN IV sbp>160 Last administered on 18:38; Admin Dose 10 MG; Start 02/20/17 at 17:30 Lorazepam (Ativan) 0.5 mg Q8H PRN PO ANXIETY Last administered on 02/23/17 05 :22; Admin Dose 0.5 MG; Start 02/20/17 at 18:00 Ondansetron HCl (Zofran Inj) 4 mg Q6H PRN IV NAUSEA AND/OR VOMITING Last administered on 02/24/17 19:13; Admin Dose 4 MG; Start 02/20/17 at 18:00 Acetaminophen (Tylenol Tab) 650 mg Q6H PRN PO PAIN LEVEL 1-3 OR FEVER; Start 02/20/17 at 18:00 Bisacodyl (Dulcolax) 5 mg DAILY PRN PO CONSTIPATION; Start 02/20/17 at 18:00 Pantoprazole (Protonix Tab) 40 mg DAILY@06 PO Last administered on 03/05/17 05 :17; Admin Dose 40 MG; Start 02/21/17 at 06:00 Nicotine (Nicoderm 14 Mg/ 24hr) 1 patch DAILY PRN TRANSDERM smoking Last administered on 02/26/17 21:11; Admin Dose 1 PATCH; Start 02/20/17 at 18:00 Lorazepam (Ativan) 2 mg Q10MIN PRN IV seizure; Start 02/20/17 at 18:00 Senna/Docusate Sodium 1 tab 1 tab Q12H PRN PO constipation; Start 02/23/17 at 11:00 Ceftriaxone Sodium 50 ml @ 100 mls/hr Q24H IVPB Last administered on 15:35; Admin Dose 100 MLS/HR; Start 02/25/17 at 16:00 Acetaminophen (Ofirmev 1000mg/ 100ml Iv) 100 ml @ 400 mls/hr Q6H IVPB Last administered on 03/05/17 12:40; Admin Dose 400 MLS/HR; Start 02/26/17 at 06:30 Gabapentin (Neurontin) 200 mg TID PO Last administered on 03/05/17 12:41; Admin Dose 200 MG; Start 02/26/17 at 09:00 Ferrous Sulfate (Ferrous Sulfate (Ec)) 325 mg Q2D PO Last administered on 12:41; Admin Dose 325 MG; Start 02/27/17 at 12:00 Hydromorphone HCl (Dilaudid PROJECT DEVELOPMENT DIRECTOR) 0.4 MG/HR CONTINUOUS R... Q4PCA IV Last administered on 03/05/17 09:42; Admin Dose 6 MG; Start 03/01/17 at 17:00 IV Flush 10 ml 10 ml PRN PRN IV IV PROTOCOL; Start 03/03/17 at 13:30 Sodium Chloride (NS) 1,000 ml @ 100 mls/hr Q10H IV Last administered on 02:33; Admin Dose 100 MLS/HR; Start 03/04/17 at 10:30 Sertraline HCl (Zoloft) 25 mg DAILY PO Last administered on 03/05/17 08:15; Admin Dose 25 MG; Start 03/04/17 at 12:30 Quetiapine Fumarate (Seroquel) 25 mg BID PO Last administered on 03/05/17 12: 41; Admin Dose 25 MG; Start 03/05/17 at 12:00 KATIE JONES Mar 05, 2017 13:31
--- NOTE | 2017-03-05 13:32 | CONS ---
Date/Time of Note Date/Time of Note DATE: 03/05/17 TIME: 13:31 Assessment/Plan Assessment/Plan Chief Complaint/Hosp Course SUBJECTIVE: No events overnight. No fevers, alert, looks comfortable. MICROBIOLOGY: Right shoulder and blood culture growing Staphylococcus aureus. Repeat blood cultures preliminary negative. ALL: PCN, Sulfa ANTIMICROBIALS: Rocephin PHYSICAL EXAMINATION: GENERAL: Well-developed, elderly white man who is alert, in no distress. HEENT: Head atraumatic, normocephalic. Sclerae anicteric. Buccal mucosa pink. NECK: Supple. CHEST: Rise symmetrical. Breath sounds clear. HEART: S1, S2. ABDOMEN: Soft, bowel tones present. EXTREMITIES: With right shoulder dressing clean, dry and intact. SKIN: No jaundice, rashes, cyanosis. ASSESSMENT: 1. Right shoulder DWIGHT infected arthroplasty, status post surgical intervention with revision arthroplasty, removal of humerus component and placement of antibiotic spacer 04/26/16 2. Oxacillin sensitive Staphylococcus aureus bacteremia secondary to above. 3. Hypertension. 4. History of bilateral shoulder replacement. PLAN: Remains stable, pending placement, continue abx for 6 weeks, f/u with ortho [facility] staff Problems: Consultation Date/Type/Reason Admit Date/Time Feb 20, 2017 at 16:35 Type of Consultation: id Exam/Review of Systems Vital Signs Vitals Vital Signs Date Time Temp Pulse Resp B/P Pulse Ox O2 Delivery O2 Flow Rate FiO2 03/05/17 12:43 18 03/05/17 08:27 98.6 79 129/68 95 Intake and Output 03/04/17 03/04/17 03/05/17 15:00 23:00 07:00 Intake Total 100 ml 1590 ml 1080 ml Balance 100 ml 1590 ml 1080 ml Results Result Diagram: 03/04/17 0814 03/04/17 0814 Medications Medications Current Medications Amlodipine Besylate (Norvasc) 10 mg DAILY PO Last administered on 03/05/17 08: 15; Admin Dose 10 MG; Start 02/20/17 at 17:30 Atorvastatin Calcium (Lipitor) 40 mg QHS PO Last administered on 03/04/17 21: 40; Admin Dose 40 MG; Start 02/20/17 at 21:00 Metoprolol Tartrate (Lopressor) 50 mg BID PO Last administered on 03/05/17 08: 15; Admin Dose 50 MG; Start 02/20/17 at 21:00 Benazepril HCl (Lotensin) 40 mg DAILY PO Last administered on 03/05/17 08:14; Admin Dose 40 MG; Start 02/21/17 at 09:00 Hydralazine HCl (Apresoline) 10 mg Q4H PRN IV sbp>160 Last administered on 18:38; Admin Dose 10 MG; Start 02/20/17 at 17:30 Lorazepam (Ativan) 0.5 mg Q8H PRN PO ANXIETY Last administered on 02/23/17 05 :22; Admin Dose 0.5 MG; Start 02/20/17 at 18:00 Ondansetron HCl (Zofran Inj) 4 mg Q6H PRN IV NAUSEA AND/OR VOMITING Last administered on 02/24/17 19:13; Admin Dose 4 MG; Start 02/20/17 at 18:00 Acetaminophen (Tylenol Tab) 650 mg Q6H PRN PO PAIN LEVEL 1-3 OR FEVER; Start 02/20/17 at 18:00 Bisacodyl (Dulcolax) 5 mg DAILY PRN PO CONSTIPATION; Start 02/20/17 at 18:00 Pantoprazole (Protonix Tab) 40 mg DAILY@06 PO Last administered on 03/05/17 05 :17; Admin Dose 40 MG; Start 02/21/17 at 06:00 Nicotine (Nicoderm 14 Mg/ 24hr) 1 patch DAILY PRN TRANSDERM smoking Last administered on 02/26/17 21:11; Admin Dose 1 PATCH; Start 02/20/17 at 18:00 Lorazepam (Ativan) 2 mg Q10MIN PRN IV seizure; Start 02/20/17 at 18:00 Senna/Docusate Sodium 1 tab 1 tab Q12H PRN PO constipation; Start 02/23/17 at 11:00 Ceftriaxone Sodium 50 ml @ 100 mls/hr Q24H IVPB Last administered on 15:35; Admin Dose 100 MLS/HR; Start 02/25/17 at 16:00 Acetaminophen (Ofirmev 1000mg/ 100ml Iv) 100 ml @ 400 mls/hr Q6H IVPB Last administered on 03/05/17 12:40; Admin Dose 400 MLS/HR; Start 02/26/17 at 06:30 Gabapentin (Neurontin) 200 mg TID PO Last administered on 03/05/17 12:41; Admin Dose 200 MG; Start 02/26/17 at 09:00 Ferrous Sulfate (Ferrous Sulfate (Ec)) 325 mg Q2D PO Last administered on 12:41; Admin Dose 325 MG; Start 02/27/17 at 12:00 Hydromorphone HCl (Dilaudid POULTRY OFFAL ICER) 0.4 MG/HR CONTINUOUS R... Q4PCA IV Last administered on 03/05/17 09:42; Admin Dose 6 MG; Start 03/01/17 at 17:00 IV Flush 10 ml 10 ml PRN PRN IV IV PROTOCOL; Start 03/03/17 at 13:30 Sodium Chloride (NS) 1,000 ml @ 100 mls/hr Q10H IV Last administered on 02:33; Admin Dose 100 MLS/HR; Start 03/04/17 at 10:30 Sertraline HCl (Zoloft) 25 mg DAILY PO Last administered on 03/05/17 08:15; Admin Dose 25 MG; Start 03/04/17 at 12:30 Quetiapine Fumarate (Seroquel) 25 mg BID PO Last administered on 03/05/17 12: 41; Admin Dose 25 MG; Start 03/05/17 at 12:00 MICHELE COUCH NP Mar 05, 2017 13:31
[2017-03-05 14:52] VITALS: BP 119/79; RESP 18
[2017-03-05] MEDS ORDERED: HYDROmorphONE 2 MG TAB PO PRN (15:00)
[2017-03-05 15:17] LABS: BASOPHILS % 0.1 % (0.0-2.0); EOSINOPHILS # 0.2 10^3/ul (0.0-0.5); EOSINOPHILS % 3.2 % (0.0-7.0); HEMATOCRIT 24.1 % (42.0-52.0); HEMOGLOBIN 7.6 g/dl (14.0-18.0); LYMPHOCYTES # 1.2 10^3/ul (0.8-2.9); LYMPHOCYTES % 16.8 % (15.0-51.0); MEAN CORPUSCULAR HEMOGLOBIN 27.8 pg (29.0-33.0); MEAN CORPUSCULAR HGB CONC 31.5 g/dl (32.0-37.0); MEAN CORPUSCULAR VOLUME 88.3 fl (82.0-101.0); MEAN PLATELET VOLUME 9.3 fl (7.4-10.4); MONOCYTE # 1.1 10^3/ul (0.3-0.9); MONOCYTES % 15.6 % (0.0-11.0); NEUTROPHIL # 4.3 10^3/ul (1.6-7.5); NEUTROPHILS % 63.3 % (39.0-77.0); PLATELET COUNT 500 10^3/UL (140-415); RED BLOOD COUNT 2.73 10^6/ul (4.70-6.10); RED CELL DISTRIBUTION WIDTH 15.9 % (11.5-14.5); WHITE BLOOD COUNT 6.8 10^3/ul (4.8-10.8)
[2017-03-05] MEDS: CEFTRIAXONE 2 GM/50 ML (PMX) 50 ML IVPB SCH (15:37)
[2017-03-05 15:38] LABS: ALBUMIN 2.8 g/dl (3.3-4.9); ALBUMIN/GLOBULIN RATIO 0.75; CALCIUM 8.1 mg/dl (8.4-10.2); CREATININE 1.22 mg/dl (0.61-1.24); POTASSIUM 4.8 mmol/L (3.5-5.1); TOTAL PROTEIN 6.5 g/dl (6.1-8.1)
--- NOTE | 2017-03-05 15:40 | DS ---
Date/Time of Note Date/Time of Note DATE: 03/05/17 TIME: 15:39 Discharge Summary Admission/Discharge Info Admit Date/Time Feb 20, 2017 at 16:35 Discharge Date/Time Patient Condition: Stable Hx of Present Illness Patient is a 62-year-old male with a past medical history significant for bilateral shoulder replacement who presents with a worsening right shoulder pain. Patient proximally 1 month ago had a piece of broken hardware removed per orthopedic surgeon, however approximately a few days ago patient's right shoulder had become more erythematous and painful with a significant swelling. Patient went to his orthopedic surgeon's office who recommended patient be admitted into the medicine service for IV antibiotics and possible intervention. Patient currently complains of right shoulder pain and did not take his medications today. PMH: Hypertension, lateral shoulder pain, iron deficiency questionable, dyslipidemia, aortic dissection history PSH: Bilateral shoulder replacement, aortic dissection graft Social: Moderate to mild smoker, occasional alcohol, denies recreational drugs Meds: Quinapril, metoprolol, atorvastatin, iron, amlodipine Hospital Course Patient is a 62-year-old male with a history of bilateral shoulder replacement who originally presented to [facility] for right shoulder infection after being sent here by his orthopedic surgeon. Patient was treated with IV antibiotics and seen by infectious disease as well as orthopedic surgeon. Patient subsequently received a washout and cleanout of his right shoulder with removal of infected hardware and insertion of antimicrobial beads and cement to stabilize the shoulder. Patient will need a revision of his shoulder surgery with new hardware and needs to follow-up with his orthopedic surgeon in 2-3 weeks. However due to overwhelming infection, patient will need IV antibiotics, ceftriaxone for a total of 6 weeks beginning February 25. To approximately April 08. Patient has significant pain issues and will be discharged with Dilaudid oral pain medication as well as mood stabilizers including Seroquel and Zoloft. Patient has significant pain management issues and it is recommended that he attempt to wean himself off pain medication as tolerated. Discharge diagnoses Right shoulder pain, status post removal of infected hardware Bilateral shoulder replacement, left shoulder replacement still intact Mood disorder Acute kidney injury Hypertensive urgency, resolved Anemia, stable Electrolyte derangement Home Meds Active Scripts Collagenase* (Santyl*) 30 Gm Oint..gm., 1 APPLIC TOP DAILY, #1 BOTTLE 2 Refills Prov:ANDRES TRAN 01/09/17 Nicotine Polacrilex (Nicorette) 2 Mg Gum, 2 MG BUCCAL Q2H Y for agitation, #1 BOX Prov:ANDRES TRAN S. 01/09/17 Nicotine* (Nicotine* Patch) 21 mg/day Patch, 1 PATCH TRANSDERM DAILY, #30 2 Refills Prov:ANDRES TRAN S. 01/09/17 Reported Medications Hydrocodone/Acetaminophen ([place] 5-325 Tablet) 1 Each Tablet, 1 EACH PO DAILY for NEEDED, TAB 12/18/16 Tramadol Hcl* (Ultram*) 50 Mg Tablet, 50 MG PO Q6H Y for PAIN, TAB 12/18/16 Quinapril Hcl (Quinapril Hcl) 40 Mg Tablet, 40 MG PO DAILY, #30 TAB 11/28/16 Metoprolol Tartrate* (Lopressor*) 50 Mg Tab, 50 MG PO BID, #60 TAB 11/28/16 Atorvastatin* (Atorvastatin*) 40 Mg Tablet, 40 MG PO QHS, #30 TAB 11/28/16 Ferrous Sulfate* (Ferrous Sulfate*) 325 Mg Tabec, 325 MG PO BID, TAB 11/28/16 Amlodipine Besylate* (Amlodipine Besylate*) 10 Mg Tablet, 10 MG PO DAILY, #30 TAB 11/28/16 Primary Care Provider [facility] Time spent on discharge: > 30 minutes Pending Labs Laboratory Tests Test 03/05/17 14:15 White Blood Count Pending Red Blood Count Pending Hemoglobin Pending Hematocrit Pending Mean Corpuscular Volume Pending Mean Corpuscular Hemoglobin Pending Mean Corpuscular Hemoglobin Concent Pending Red Cell Distribution Width Pending Platelet Count Pending Mean Platelet Volume Pending KATIE JONES Mar 05, 2017 15:39
== END 2017-03-05 17:26 | DRG 496 ==
LOC: E/R 12:39 → MS1 16:35
PROVIDERS: ADMIT Internal Medicine; ATTEND Internal Medicine
PROC: 0RHJ08Z Insertion of Spacer into Right Shoulder Joint, Open Approach (ICD-10-PCS; 2017-02-24)
PROC: 0RPJ0JZ Removal of Synthetic Substitute from Right Shoulder Joint, Open Approach (ICD-10-PCS; principal; 2017-02-24 16:30)
PROC: 02HV33Z Insertion of Infusion Device into Superior Vena Cava, Percutaneous Approach (ICD-10-PCS; 2017-02-26)
DX: T84.59XA Infection and inflammatory reaction due to other internal joint prosthesis, initial encounter (principal); E87.1 Hypo-osmolality and hyponatremia; N17.9 Acute kidney failure, unspecified; D50.9 Iron deficiency anemia, unspecified; F17.200 Nicotine dependence, unspecified, uncomplicated; B95.61 Methicillin susceptible Staphylococcus aureus infection as the cause of diseases classified elsewhere; E87.6 Hypokalemia; M25.411 Effusion, right shoulder; I16.0 Hypertensive urgency; R00.0 Tachycardia, unspecified; F41.9 Anxiety disorder, unspecified; F39 Unspecified mood [affective] disorder; Z96.612 Presence of left artificial shoulder joint; Z96.611 Presence of right artificial shoulder joint; Z95.828 Presence of other vascular implants and grafts
CPT/HCPCS: 36415; 36569; 71010; 73020; 73030; 76937; 80048; 80053; 80069; 80202; 80306; 80307; 83540; 83690; 83735; 84100; 84484; 85025; 85610; 87040; 87070; 87102; 87116; 88300; 90686; 93005; 96365; 96375; 97116; 97162; 97165; 97530; 97535; C1713; J0131; J0360; J1170; J1644; J2185; J2250; J2270; J2370; J2405; J2710; J2795; J3010; J3370; J3475; J7030; J7050

== ENCOUNTER 2017-08-10 08:08 | Emergency (ER) | END 2017-08-10 15:10 | disposition home or self-care (01) ==

== ENCOUNTER 2018-02-17 18:03 | Inpatient (IN) | END 2018-03-03 14:20 | DRG 501 ==

== ENCOUNTER 2018-08-04 11:28 | Inpatient (IN) | payer MEDICARE, OTHER ==
[~2018-08-04] VITALS: Ht 175.3 cm; Wt 72.7 kg
[2018-08-04] VITALS (26 sets, daily range): BP systolic 98–135; BP diastolic 55–86; PULSE 74–90; RESP 16–68; Ht 175.3 cm; Wt 72.7 kg
[~2018-08-04 11:28] MED LIST changes: +CARV25TA79 PO; +CEFAZOLIN 2 GM/50 ML (PMX) 50 ML IVPB SCH; +CHLO25TA2 PO; -FER325 PO; -HYDR-906 PO; +LACTATED RINGER'S 1,000 ML IV SCH; +LISI40TA3 PO; -METO-429 PO; -NICO1PAT6 TRANSDERM; -QUIN40TA PO; -SAN30GM TOP; -TRAM-40 PO; -[UNRECOGNIZED DRUG - CODE] BUCCAL
[2018-08-04] MEDS ORDERED: SERT50TA PO (12:00)
--- NOTE | 2018-08-04 12:50 | HPN ---
Date/Time of Note Date/Time of Note DATE: 08/04/18 TIME: 12:50 Interval H&P Admission Note Pt. seen H&P reviewed: No system changes SARANYA JONES MD August 04, 2018 12:50
[2018-08-04] MEDS ORDERED: BACITRACIN 50000 UNITS INJ ONE (12:56)
[2018-08-04] MEDS ORDERED: TRANEXAMIC ACID 1GM/100ML(PMX) 100 ML IV ONE (13:00)
[2018-08-04] MEDS ORDERED: POLYMYXIN B 500000 UNIT INJ ONE (13:05)
--- NOTE | 2018-08-04 13:15 | PREAC ---
Date/Time of Note Date/Time of Note DATE: 08/04/18 TIME: 13:13 Anesthesia Eval and Record Evaluation Time Pre-Procedure Interview DATE: 08/04/18 TIME: 13:13 Age 63 Sex male NPO: 8 hrs Preoperative diagnosis right shoulder arthritis Planned procedure removal of right shoulder cement spacer, reverse shoulder arthroplasty Past Medical History Past Medical History: Includes Cardio: HTN, Dyslipidemia, Other (history of thoracic aortic dissection) Pulm: COPD Surgery & Anesthesia Issues No known issue Meds Anticoagulation: No Beta Richard within 24 hr: Yes Reason Beta Richard not given: Bradycarida, Hypotension Reported Medications Sertraline Hcl* (Zoloft*) 50 Mg Tablet, 50 MG PO QHS, #30 TAB 08/04/18 Lisinopril* (Lisinopril*) 40 Mg Tablet, 40 MG PO DAILY, #30 TAB 02/17/18 Amlodipine Besylate* (Amlodipine Besylate*) 10 Mg Tablet, 10 MG PO DAILY, #30 TAB 02/17/18 Carvedilol* (Carvedilol*) 25 Mg Tablet, 25 MG PO BID, #60 TAB 02/17/18 Atorvastatin* (Atorvastatin*) 40 Mg Tablet, 40 MG PO QHS, #30 TAB 02/17/18 Chlorthalidone* (Chlorthalidone*) 25 Mg Tablet, 25 MG PO DAILY, TAB 02/17/18 Current Medications Cefazolin Sodium/ Dextrose 50 ml @ 100 mls/hr PREOP IVPB ; Start 08/04/18 at 06:00; Stop 08/04/18 at 19:00 Lactated Ringer's 1,000 ml @ 25 mls/hr Q24H IV Last administered on 08/04/18at 12:21; Admin Dose 25 MLS/HR; Start 08/04/18 at 06:00; Stop 08/04/18 at 19:00 Tranexamic Acid 100 ml @ 200 mls/hr INTRA-OP ONCE IV ; Start 08/04/18 at 13:00; Stop 08/04/18 at 13:29 Meds reviewed: Yes Allergies Coded Allergies: Sulfa (Sulfonamide Antibiotics) (Unverified Allergy, Mild, 08/04/18) Penicillins (Verified Allergy, Unknown, 08/04/18) Allergies Reviewed: Yes Labs/Studies Labs Reviewed: Reviewed by anesthesiologist Blood Bank Test 08/04/18 12:21 08/04/18 12:29 Blood Product Summary Counts Blood Type A POSITIVE test: N/A Studies: ECG, CXR Pre-procedure Exam Last vitals Vital Signs Date Temp Pulse Resp B/P (MAP) Pulse Ox O2 O2 Flow FiO2 Time Delivery Rate 08/04/18 96.7 16 131/78 95 Room Air 12:18 (95) Airway: Adequate mouth opening, Adequate thyromental dist Mallampati: Mallampati II Teeth: Normal Lung: Normal Heart: Normal ASA Physical Status ASA physical status: 3 Emergency: None Planned Anesthetic General/MAC: ETT Nerve block: Brachial plexus (right) Planned Pain Management Single shot nerve block, Parenteral pain med Pre-operative Attestations Prior to commencing anesthesia and surgery, the patient was re-evaluated, there was verification of: *The patient's identity *The results of appropriate recent lab work and preoperative vital signs *The above evaluation not changing prior to induction *Anesthetic plan, risk benefits, alternative and complications discussed with patient/family; questions answered; patient/family understands, accepts and wishes to proceed. STEPHIE MEYERS MD August 04, 2018 13:15
[2018-08-04] MEDS ORDERED: MIDAZOLAM 1 MG/ML 2 ML INJ ONE (14:25)
[2018-08-04] MEDS ORDERED: FENTAnyl 50 MCG/ML VIAL ONE (14:25)
[2018-08-04] MEDS ORDERED: LIDOCAINE 2% (SDV) 5 ML INJ ONE (14:27)
[2018-08-04] MEDS ORDERED: PROPOFOL 20 ML ONE (14:27)
[2018-08-04] MEDS ORDERED: ROPIVACAINE 0.5 % 30 ML VIAL ONE (14:28)
[2018-08-04] MEDS ORDERED: CEFAZOLIN 1 GM INJ ONE (14:54)
[2018-08-04] MEDS ORDERED: TRANEXAMIC ACID 1GM/100ML(PMX) 100 ML ONE (14:58)
[2018-08-04] MEDS ORDERED: EPHEDrine 25 MG/5 ML SYG ONE (14:58)
[2018-08-04] MEDS ORDERED: ONDANSETRON 4 MG INJ ONE (14:58)
[2018-08-04] MEDS ORDERED: FAMOTIDINE 20 MG INJ ONE (14:58)
[2018-08-04] MEDS ORDERED: DEXAMETHASONE 4 MG/ML 5 ML INJ ONE (14:58)
[2018-08-04] MEDS ORDERED: ROCURONIUM 50 MG INJ ONE ×2 (15:12→15:36)
[2018-08-04] MEDS ORDERED: SUCCINYLCHOLINE CHLORIDE 100 MG/5 ML SYG IV ONE (15:12)
[2018-08-04] MEDS ORDERED: OXYCODONE/ACETAMINOPHEN (5/325) TAB PO PRN (15:30)
[2018-08-04] MEDS ORDERED: HYDROmorphONE 1 MG/5 ML IV SYRINGE IV PRN ×3 (15:30)
[2018-08-04] MEDS ORDERED: PROCHLORPERAZINE 10 MG INJ IV PRN (15:30)
[2018-08-04] MEDS ORDERED: DIPHENHYDRAMINE 50 MG INJ IV PRN (15:30)
[2018-08-04] MEDS ORDERED: ONDANSETRON 4 MG INJ IV PRN (15:30)
[2018-08-04] MEDS ORDERED: EPHEDrine SULFATE 50 MG/5 ML SYG IV PRN (15:30)
[2018-08-04] MEDS ORDERED: hydrALAzine 20 MG INJ IV PRN (15:30)
[2018-08-04] MEDS ORDERED: LABETALOL HCL 20MG INJ IV PRN (15:30)
[2018-08-04] MEDS ORDERED: FENTAnyl 50 MCG/ML VIAL IV PRN (15:30)
[2018-08-04] MEDS ORDERED: MEPERIDINE 25 MG INJ IV PRN (15:30)
[2018-08-04] MEDS ORDERED: VANCOMYCIN 1 GM INJ ONE (16:07)
[2018-08-04] MEDS ORDERED: SUGAMMADEX SODIUM 200 MG/2 ML VIAL IV ONE (16:21)
[2018-08-04] MEDS ORDERED: HYDROmorphONE 2 MG/ML SYG ONE (16:33)
[2018-08-04] MEDS ORDERED: GLYCOPYRROLATE 0.4 MG INJ ONE (17:02)
--- NOTE | 2018-08-04 17:32 | SIPON ---
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
--- NOTE | 2018-08-04 18:38 | PAC ---
Date/Time of Note Date/Time of Note DATE: 08/04/18 TIME: 18:38 Post-Anesthesia Notes Post-Anesthesia Note Last documented vital signs Vital Signs Date Temp Pulse Resp B/P (MAP) Pulse Ox O2 O2 Flow FiO2 Time Delivery Rate 08/04/18 78 20 123/77 96 Nasal 3.0 17:59 (92) Cannula 08/04/18 99.0 17:24 Activity: WNL Respiratory function: WNL Cardiovascular function: WNL Mental status: Baseline Pain reasonably controlled: Yes Hydration appropriate: Yes Nausea/Vomiting absent: Yes STEPHIE MEYERS MD August 04, 2018 18:38
[2018-08-04] MEDS ORDERED: NACL 0.9% 3 ML SYG IV SCH (19:00)
[2018-08-04] MEDS ORDERED: ACETAMINOPHEN 325 MG TAB PO PRN (19:00)
--- NOTE | 2018-08-04 19:15 | OPR ---
DATE OF OPERATION: 08/04/2018 SURGEON: Saranya Jones MD SURFACE SUPPLY BREATHING APPARATUS: Michele Urrutia MD ANESTHESIOLOGIST: Dr. Castañeda ANESTHESIA: General with interscalene block. PREOPERATIVE DIAGNOSIS: Status post right total shoulder infection. POSTOPERATIVE DIAGNOSIS: Status post right total shoulder infection. PROCEDURES: 1. Removal explant of hemiarthroplasty cement spacer. 2. Reverse total shoulder arthroplasty. 3. Application of wound VAC. IMPLANTS: DePuy reverse total shoulder arthroplasty glenoid baseplate, glenosphere and humeral stem and a size 6 polyethylene. ESTIMATED BLOOD LOSS: 100 mL. ANTIBIOTICS: Ancef. INDICATION: Al is a 63-year-old male who is very well known to me in the hospital and he original ly underwent total shoulder arthroplasty several years ago in approximately spring. That imp lant became infected and loose and his care was assumed by me. We performed ultimately removal of th e hardware and subsequent placement of cement antibiotic spacers through various rounds of antibiotic s until his recent laboratory studies and aspirate of his shoulder was clean of any signs of infectio n. Therefore, it was determined appropriate to proceed on with placement of the final reverse should er arthroplasty implant. Risks of surgery including pain, bleeding, infection, scar, damage to neuro vascular structures, failure of surgery to work, blood clots of the upper extremities, lower extremit y, pulmonary embolism, risk of anesthesia, were explained to the patient. He elected to procee d. of arthroplasty given his history of infection including the fact that he had a similar cir cumstance happen on his left shoulder should this implant to become infected, it would likely have to be removed and placement of antibiotic salvage spacer and that would be definitive for him with no r eal option of doing anything else and he understands that. PROCEDURE IN DETAIL: The patient was marked and identified in preoperative holding, brought to the o perating room, placed supine on the operating table, placed under general anesthesia. He received in terscalene block. He was then placed into the beach chair position with his head well postured and a ppropriate elevation of the bed. A sequential compressive device was placed in bilateral extremities and his legs were placed in the appropriate leg weaver. For this position, his right shoulder was p repped and draped in the usual sterile fashion. Timeout was performed. Incision was made through hi s previous incision. Incision was carried down through the deltopectoral fascia and retraction was p erformed and the humerus was well identified. There was no subscapularis from a previous resection. The humerus was delivered into the operative field and using a simple tamp, the previous hemiarthrop lasty was easily removed from the body. At this time, the humerus was retracted exposing the glenoid . Glenoid exposure was achieved with variety of retractors and we proceeded on with placement of the new glenosphere. A culture was taken of the fluid here. There was no fluid that was suspicious or of any concern or overt signs of infection. First, the central peg was established and then a glenos phere was placed. Three screws were able to have purchase and one of those with cortical screw. The other 2 were cortical followed by locking mechanism approximating the glenoid very nicely to the inf erior aspect of the glenoid. At this time, the actual glenosphere was applied and this was tensioned very nicely and had good purchase and attention was now turned to the humerus itself. The cuts on t he humerus were for separate implant done previously. Therefore, the new cuts were made excising the excessive greater tuberosity and creating an appropriate angle for this implant. Metaphyseal reamin g was then performed for appropriate fixation of the implant and then broaching and subsequent reamin g of the canal until appropriate purchase was found. A temporary implant was placed at this time wit h a temporary polyethylene and this was trialled and we ultimately decided the size 6 for good fixati on and very good tight fit with low risk of dislocation and the temporary implant was removed. The i rrigation took place with pulsatile lavage and antibiotic laden fluid and the final implant stem was placed with a press-fit fixation and a size 6 polyethylene was placed. This was reduced with appropr iate force and the final implant was tested and found to have excellent range of motion and is quite stable. No dislocation was easily possible and at this time, closure was initiated. Vancomycin powd er was placed within the wound and closure was performed to the deep layer with 0 Vicryl. The subcut icular was closed with 3-0 Monocryl and the skin layer was closed with 3-0 nylon. Given the patient' s history of wound infections as well as wound breakdown, an incisional wound VAC was applied at this time. He was placed in abduction pillow sling. X-ray was taken to operating room to confirm approp riate positioning of the implant which she was and this terminated the procedure. The patient was ex tubated in the operating room in good condition. He will be sent to the main hospital floor upon the hospitalist service. We thank them very much for their help. He will receive several doses of anti biotics. He will wear his wound VAC for several days. I will then transition it to a Prevena home w ound VAC and he will be ready for discharge at the time. Indication for this hospitalization and unruly cement of this wound VAC is that he gets history of wound breakdown and he responded very well to the wound VAC in the past. Dictated By: SARANYA JONES MD AD/NTS Conf#: [id number] DID#: [id number]
[2018-08-04] MEDS: ATORVASTATIN 40 MG TAB PO SCH (21:41)
[2018-08-04] MEDS: SERTRALINE 50 MG TAB PO SCH (21:41)
[2018-08-04] MEDS: morphine 2 MG INJ IV PRN (21:41)
[2018-08-04] MEDS: CEFAZOLIN 2 GM/50 ML (PMX) 50 ML IVPB SCH (21:58)
[2018-08-05] VITALS: BP 107/70; PULSE 72; RESP 18
[2018-08-05] MEDS: HYDROCODONE/APAP (5/325) TAB PO PRN ×3 (00:07→13:56)
[2018-08-05] MEDS ORDERED: ALBUTEROL/IPRATROPIUM (NEB) 3 ML AMP HHN PRN (02:30)
[2018-08-05] MEDS: morphine 2 MG INJ IV PRN ×6 (03:17→20:42)
--- NOTE | 2018-08-05 07:05 | CONS ---
Assessment/Plan Assessment/Plan Assessment/Plan (Daily) 1. Status post reverse out of total shoulder arthroplasty -Management per Ortho 2. Hypertension: Continue home meds. Adjust as needed 3. History of emphysema: No sign of acute exacerbation -Supplemental oxygen and bronchodilators as needed 4. History of depression: Continue home meds 5. Dyslipidemia: Continue statin Consultation Date/Type/Reason Admit Date/Time August 04, 2018 at 19:22 Date/Time of Note DATE: 08/05/18 TIME: 07:03 Hx of Present Illness This is a 63-year-old male with a history of hypertension, emphysema, dyslipidemia, depression, right shoulder surgery and subsequent infection. And patient admitted to the hospital status post reverse out of total shoulder arthroplasty. Consult was placed for medical management Past Medical History Home Meds Reported Medications Sertraline Hcl* (Zoloft*) 50 Mg Tablet, 50 MG PO QHS, #30 TAB 08/04/18 Lisinopril* (Lisinopril*) 40 Mg Tablet, 40 MG PO DAILY, #30 TAB 02/17/18 Amlodipine Besylate* (Amlodipine Besylate*) 10 Mg Tablet, 10 MG PO DAILY, #30 TAB 02/17/18 Carvedilol* (Carvedilol*) 25 Mg Tablet, 25 MG PO BID, #60 TAB 02/17/18 Atorvastatin* (Atorvastatin*) 40 Mg Tablet, 40 MG PO QHS, #30 TAB 02/17/18 Chlorthalidone* (Chlorthalidone*) 25 Mg Tablet, 25 MG PO DAILY, TAB 02/17/18 Medications Current Medications IV Flush (NS 3 ml) 3 ml PER PROTOCOL IV ; Start 08/04/18 at 19:00 Ondansetron HCl (Zofran Inj) 4 mg Q6H PRN IV NAUSEA/VOMITING; Start 08/04/18 at 19:00 Acetaminophen (Tylenol Tab) 650 mg Q6H PRN PO .PAIN 1-3 OR TEMP; Start 08/04/18 at 19:00 Acetaminophen/ Hydrocodone Bitart ([place] (5/325)) 1 tab Q6H PRN PO .MOD PAIN 4- 6 Last administered on 08/05/18at 06:21; Admin Dose 1 TAB; Start 08/04/18 at 19:00 Morphine Sulfate (morphine) 2 mg Q4H PRN IV .SEVERE PAIN 7-10 Last administered on 08/05/18at 03:17; Admin Dose 2 MG; Start 08/04/18 at 19:00 Docusate Sodium (Colace) 100 mg Q12H PRN PO .CONSTIPATION; Start 08/04/18 at 19:00 Zolpidem Tartrate (Ambien) 5 mg QHS PRN PO .INSOMNIA; Start 08/04/18 at 19:00 Cefazolin Sodium/ Dextrose 50 ml @ 100 mls/hr Q8 IVPB Last administered on 08/04/18at 21:58; Admin Dose 100 MLS/HR; Start 08/04/18 at 22:00; Stop 08/05/18 at 14:30 Amlodipine Besylate (Norvasc) 10 mg DAILY PO ; Start 08/05/18 at 09:00 Atorvastatin Calcium (Lipitor) 40 mg QHS PO Last administered on 08/04/18at 21:41; Admin Dose 40 MG; Start 08/04/18 at 21:00 Carvedilol (Coreg) 25 mg BID PO Last administered on 08/04/18at 21:42; Admin Dose 25 MG; Start 08/04/18 at 21:00 Chlorthalidone (Hygroton) 25 mg DAILY PO ; Start 08/05/18 at 09:00 Lisinopril (Zestril) 40 mg DAILY PO ; Start 08/05/18 at 09:00 Sertraline HCl (Zoloft) 50 mg QHS PO Last administered on 08/04/18at 21:41; Admin Dose 50 MG; Start 08/04/18 at 21:00 Albuterol/ Ipratropium (Duoneb) 3 ml Q4H RESP THERAPY PRN HHN SHORTNESS OF BREATH; Start 08/05/18 at 02:30 Allergies: Coded Allergies: Sulfa (Sulfonamide Antibiotics) (Unverified Allergy, Mild, 08/04/18) Penicillins (Verified Allergy, Unknown, 08/04/18) Social History Smoking Status: Current some day smoker Exam/Review of Systems Exam Vitals Vital Signs Date Temp Pulse Resp B/P (MAP) Pulse Ox O2 O2 Flow FiO2 Time Delivery Rate 08/05/18 97.9 72 18 107/70 90 00:00 (82) 08/04/18 Nasal 3.0 19:50 Cannula Intake and Output 08/04/18 08/04/1808/05/19 1515:00 23:00 07:00 IntakeIntake Total 1200 ml 50 ml OutputOutput Total 100 ml BalanceBalance 1200 ml -50 ml Results Result Diagram: 08/05/18 0501 08/05/18 0501 Results 24hrs Laboratory Tests Test 08/05/18 05:01 White Blood Count 14.9 #H Red Blood Count 4.48 #L Hemoglobin 12.3 #L Hematocrit 38.2 #L Mean Corpuscular Volume 85.3 Mean Corpuscular Hemoglobin 27.5 L Mean Corpuscular Hemoglobin Concent 32.2 Red Cell Distribution Width 15.9 H Platelet Count 272 # Mean Platelet Volume 10.2 Immature Granulocytes % 0.600 H Neutrophils % 85.2 H Lymphocytes % 5.4 L Monocytes % 8.5 Eosinophils % 0.0 Basophils % 0.3 Nucleated Red Blood Cells % 0.0 Immature Granulocytes # 0.090 H Neutrophils # 12.7 H Lymphocytes # 0.8 Monocytes # 1.3 H Eosinophils # 0.0 Basophils # 0.0 Nucleated Red Blood Cells # 0.0 Sodium Level 136 Potassium Level 4.7 Chloride Level 99 Carbon Dioxide Level 27 Anion Gap 10 Blood Urea Nitrogen 22 H Creatinine 1.08 Est Glomerular Filtrat Rate mL/min > 60 Glucose Level 133 Calcium Level 9.1 Phosphorus Level 3.4 Magnesium Level 1.8 Medications Medication Current Medications IV Flush (NS 3 ml) 3 ml PER PROTOCOL IV ; Start 08/04/18 at 19:00 Ondansetron HCl (Zofran Inj) 4 mg Q6H PRN IV NAUSEA/VOMITING; Start 08/04/18 at 19:00 Acetaminophen (Tylenol Tab) 650 mg Q6H PRN PO .PAIN 1-3 OR TEMP; Start 08/04/18 at 19:00 Acetaminophen/ Hydrocodone Bitart ([place] (5/325)) 1 tab Q6H PRN PO .MOD PAIN 4- 6 Last administered on 08/05/18at 06:21; Admin Dose 1 TAB; Start 08/04/18 at 19:00 Morphine Sulfate (morphine) 2 mg Q4H PRN IV .SEVERE PAIN 7-10 Last administered on 08/05/18at 03:17; Admin Dose 2 MG; Start 08/04/18 at 19:00 Docusate Sodium (Colace) 100 mg Q12H PRN PO .CONSTIPATION; Start 08/04/18 at 19:00 Zolpidem Tartrate (Ambien) 5 mg QHS PRN PO .INSOMNIA; Start 08/04/18 at 19:00 Cefazolin Sodium/ Dextrose 50 ml @ 100 mls/hr Q8 IVPB Last administered on 08/04/18at 21:58; Admin Dose 100 MLS/HR; Start 08/04/18 at 22:00; Stop 08/05/18 at 14:30 Amlodipine Besylate (Norvasc) 10 mg DAILY PO ; Start 08/05/18 at 09:00 Atorvastatin Calcium (Lipitor) 40 mg QHS PO Last administered on 08/04/18at 21:41; Admin Dose 40 MG; Start 08/04/18 at 21:00 Carvedilol (Coreg) 25 mg BID PO Last administered on 08/04/18at 21:42; Admin Dose 25 MG; Start 08/04/18 at 21:00 Chlorthalidone (Hygroton) 25 mg DAILY PO ; Start 08/05/18 at 09:00 Lisinopril (Zestril) 40 mg DAILY PO ; Start 08/05/18 at 09:00 Sertraline HCl (Zoloft) 50 mg QHS PO Last administered on 08/04/18at 21:41; Admin Dose 50 MG; Start 08/04/18 at 21:00 Albuterol/ Ipratropium (Duoneb) 3 ml Q4H RESP THERAPY PRN HHN SHORTNESS OF BREATH; Start 08/05/18 at 02:30 MARK ROGERS MD August 05, 2018 07:05
[2018-08-05] MEDS: CEFAZOLIN 2 GM/50 ML (PMX) 50 ML IVPB SCH ×2 (07:44→15:23)
[2018-08-05 07:50] VITALS: BP 117/71; PULSE 65; RESP 18
[2018-08-05] MEDS: CHLORTHALIDONE 25 MG TAB PO SCH (08:45)
[2018-08-05] MEDS: AMLODIPINE 10 MG TAB PO SCH (08:46)
[2018-08-05] MEDS: LISINOPRIL 20 MG TAB PO SCH (08:46)
--- NOTE | 2018-08-05 14:05 | PN ---
Date/Time of Note Date/Time of Note DATE: 08/05/18 TIME: 14:02 Assessment/Plan VTE Prophylaxis Risk score (from Ns)>0 risk: 8 SCD applied (from Ns): Yes SCD contraindicated: low risk/ambulating Pharmacological prophylaxis: LMWH Lines/Catheters IV Catheter Type (from Nrs): Saline Lock Urinary Cath still in place: No Assessment/Plan Hospital Course A/P 1. Rt Shoulder Reverse Arthroplasty; pod 1; stable, treat pain; cont wound vac 2. Tobacco abuse; offered patch 3. H/o Aortic Dissection repair 4. Htn 5. Dl 6. Wilmer? S: mod pain; no dyspnea O: vss PE no pallor reg s1s2 no mrg ctab bs+ nt nd no r r g no edema; rt shoulder c/d/i Result Diagram: 08/05/18 0501 08/05/18 0501 Results 24hrs Laboratory Tests Test 08/05/18 05:01 08/05/18 07:28 White Blood Count 14.9 #H Red Blood Count 4.48 #L Hemoglobin 12.3 #L Hematocrit 38.2 #L Mean Corpuscular Volume 85.3 Mean Corpuscular Hemoglobin 27.5 L Mean Corpuscular Hemoglobin Concent 32.2 Red Cell Distribution Width 15.9 H Platelet Count 272 # Mean Platelet Volume 10.2 Immature Granulocytes % 0.600 H Neutrophils % 85.2 H Lymphocytes % 5.4 L Monocytes % 8.5 Eosinophils % 0.0 Basophils % 0.3 Nucleated Red Blood Cells % 0.0 Immature Granulocytes # 0.090 H Neutrophils # 12.7 H Lymphocytes # 0.8 Monocytes # 1.3 H Eosinophils # 0.0 Basophils # 0.0 Nucleated Red Blood Cells # 0.0 Sodium Level 136 Potassium Level 4.7 Chloride Level 99 Carbon Dioxide Level 27 Anion Gap 10 Blood Urea Nitrogen 22 H Creatinine 1.08 Est Glomerular Filtrat Rate mL/min > 60 Glucose Level 133 Calcium Level 9.1 Phosphorus Level 3.4 Magnesium Level 1.8 Lab Scanned Report REFERENCE LAB Exam/Review of Systems Exam Vitals Vital Signs Date Temp Pulse Resp B/P (MAP) Pulse Ox O2 O2 Flow FiO2 Time Delivery Rate 08/05/18 97.7 65 18 117/71 95 07:50 (86) 08/04/18 Nasal 3.0 19:50 Cannula Intake and Output 08/04/18 08/04/18 08/05/18 1515:00 23:00 07:00 IntakeIntake Total 1200 ml 50 ml OutputOutput Total 100 ml 150 ml BalanceBalance 1200 ml -50 ml -150 ml Results Results 24hrs Laboratory Tests Test 08/05/18 05:01 08/05/18 07:28 White Blood Count 14.9 #H Red Blood Count 4.48 #L Hemoglobin 12.3 #L Hematocrit 38.2 #L Mean Corpuscular Volume 85.3 Mean Corpuscular Hemoglobin 27.5 L Mean Corpuscular Hemoglobin Concent 32.2 Red Cell Distribution Width 15.9 H Platelet Count 272 # Mean Platelet Volume 10.2 Immature Granulocytes % 0.600 H Neutrophils % 85.2 H Lymphocytes % 5.4 L Monocytes % 8.5 Eosinophils % 0.0 Basophils % 0.3 Nucleated Red Blood Cells % 0.0 Immature Granulocytes # 0.090 H Neutrophils # 12.7 H Lymphocytes # 0.8 Monocytes # 1.3 H Eosinophils # 0.0 Basophils # 0.0 Nucleated Red Blood Cells # 0.0 Sodium Level 136 Potassium Level 4.7 Chloride Level 99 Carbon Dioxide Level 27 Anion Gap 10 Blood Urea Nitrogen 22 H Creatinine 1.08 Est Glomerular Filtrat Rate mL/min > 60 Glucose Level 133 Calcium Level 9.1 Phosphorus Level 3.4 Magnesium Level 1.8 Lab Scanned Report REFERENCE LAB Medications Medication Current Medications IV Flush (NS 3 ml) 3 ml PER PROTOCOL IV ; Start 08/04/18 at 19:00 Ondansetron HCl (Zofran Inj) 4 mg Q6H PRN IV NAUSEA/VOMITING; Start 08/04/18 at 19:00 Acetaminophen (Tylenol Tab) 650 mg Q6H PRN PO .PAIN 1-3 OR TEMP; Start 08/04/18 at 19:00 Acetaminophen/ Hydrocodone Bitart ([place] (5/325)) 1 tab Q6H PRN PO .MOD PAIN 4- 6 Last administered on 08/05/18at 13:56; Admin Dose 1 TAB; Start 08/04/18 at 19:00 Docusate Sodium (Colace) 100 mg Q12H PRN PO .CONSTIPATION; Start 08/04/18 at 19:00 Zolpidem Tartrate (Ambien) 5 mg QHS PRN PO .INSOMNIA; Start 08/04/18 at 19:00 Cefazolin Sodium/ Dextrose 50 ml @ 100 mls/hr Q8 IVPB Last administered on 08/05/18 07:44; Admin Dose 100 MLS/HR; Start 08/04/18 at 22:00; Stop 08/05/18 at 14:30 Amlodipine Besylate (Norvasc) 10 mg DAILY PO Last administered on 08/05/18 08:46; Admin Dose 10 MG; Start 08/05/18 at 09:00 Atorvastatin Calcium (Lipitor) 40 mg QHS PO Last administered on 08/04/18 21:41; Admin Dose 40 MG; Start 08/04/18 at 21:00 Carvedilol (Coreg) 25 mg BID PO Last administered on 08/05/18 08:45; Admin Dose 25 MG; Start 08/04/18 at 21:00 Chlorthalidone (Hygroton) 25 mg DAILY PO Last administered on 08/05/18 08:45; Admin Dose 25 MG; Start 08/05/18 at 09:00 Lisinopril (Zestril) 40 mg DAILY PO Last administered on 08/05/18 08:46; Admin Dose 40 MG; Start 08/05/18 at 09:00 Sertraline HCl (Zoloft) 50 mg QHS PO Last administered on 08/04/18 21:41; Admin Dose 50 MG; Start 08/04/18 at 21:00 Albuterol/ Ipratropium (Duoneb) 3 ml Q4H RESP THERAPY PRN HHN SHORTNESS OF BREATH; Start 08/05/18 at 02:30 Morphine Sulfate (morphine) 4 mg Q4H PRN IV .SEVERE PAIN 7-10 Last administered on 08/05/18 12:46; Admin Dose 4 MG; Start 08/05/18 at 08:30 NAILA BRUNO MD August 05, 2018 14:05
[2018-08-05 15:14] VITALS: BP 120/74; PULSE 70; RESP 18
--- NOTE | 2018-08-05 18:37 | PN ---
Date/Time of Note Date/Time of Note DATE: 08/05/18 TIME: 18:32 Assessment/Plan Lines/Catheters IV Catheter Type (from Nrsg): Saline Lock Arvizu in Place (from Nrsg): No Assessment/Plan Chief Complaint/Hosp Course status post removal of cement spacer and placement of Reverse shoulder arthroplasty. Assessment/Plan He is doing well status post surgery. Unlike his previous surgeries when he always removed his sling, I have counseled him that this time, he must wear it at all times unless he is doing ROM maneuvers that I don't want him starting just yet. It is very important for his wound and for the tension on his implant and surrounding muscles that he always where the sling with the abduction pillow. Wound vac will be changed Thursday PM versus Thursday. Cont'd Hospitalization Reason: History of wound complications needed inpatient wound vac. Subjective 24 Hr Interval Summary Doing well, patient removed sling and is sleeping without it. Pain controlled with medicine. Pain Control: moderate Exam/Review of Systems Vital Signs Vitals Vital Signs Date Temp Pulse Resp B/P (MAP) Pulse Ox O2 O2 Flow FiO2 Time Delivery Rate 08/05/18 98.0 70 18 120/74 92 Room Air 15:14 (89) 08/04/18 3.0 19:50 Intake and Output 08/04/18 08/04/18 08/05/18 1515:00 23:00 07:00 IntakeIntake Total 1200 ml 50 ml OutputOutput Total 100 ml 150 ml BalanceBalance 1200 ml -50 ml -150 ml Exam Free Text/Dictation Visual appearance of shoulders is level and symmetric and much improved compared with preop. Motion of implant is good, NVI distally for m/r/u nerves. Good pulses. 100 output to woundvac, blood clot. Results Result Diagram: 08/05/18 0501 08/05/18 0501 SARANYA JONES MD August 05, 2018 18:37
[2018-08-05] MEDS: HYDROCODONE/APAP (10/325) TAB PO PRN ×2 (19:47→22:38)
[2018-08-05 19:50] VITALS: BP 97/55; PULSE 67; RESP 18
[2018-08-05] MEDS: ATORVASTATIN 40 MG TAB PO SCH (20:42)
[2018-08-05] MEDS: SERTRALINE 50 MG TAB PO SCH (20:44)
[2018-08-05] MEDS: KETOROLAC 30 MG INJ IV SCH (21:58)
[2018-08-06] MEDS: morphine 2 MG INJ IV PRN ×5 (00:44→21:11)
[2018-08-06] MEDS: HYDROCODONE/APAP (10/325) TAB PO PRN ×7 (01:42→22:36)
[2018-08-06 02:01] VITALS: BP 94/50; PULSE 66; RESP 18
[2018-08-06] MEDS: KETOROLAC 30 MG INJ IV SCH ×3 (05:45→22:36)
--- NOTE | 2018-08-06 07:40 | CONS ---
Assessment/Plan Assessment/Plan Assessment/Plan (Daily) R Shoulder repair COPD Anxiety disorder Low pain tolerance Negotiating for more morphine Relaxing therapy, Encouragement to ambulate On [employer] at this time per me will dc tomorrow. Consultation Date/Type/Reason Admit Date/Time August 04, 2018 at 19:22 Date/Time of Note DATE: 08/06/18 TIME: 07:36 Hx of Present Illness This is a 63-year-old gentleman who underwent right shoulder repair 2 days prior to this consultation. Patient stated his pain is moderately controlled and request higher doses of morphine. However he he was just begun on Toradol and have mentioned to him it may take period of time before becomes therapeutic. He has a past medical history of taking [place] denies any other illicit drug use. My impressions are he was taking supplemental amounts of [place] as compared to the prescribed amount. I do not approach him on this question all. Comorbid medical problems include hypertension history of emphysema patient still smokes history of depression disks and history of dyslipidemia. States his pain is 5/10 he is able to ambulate at this time he states that with the Toradol he has improved but still requesting increasing doses of morphine which he is currently taking 4 mg IV at this time. Physical functioning is better sleeping is still problematic, overall functioning is improved. Constitutional: no complaints, improved ENT: no complaints Respiratory: other (cood) Gastrointestinal: no complaints; No pain, No blood, No constipation, No decreased appetite, No diarrhea, No flatus, No nausea, No passing stool, No vomiting, No other Genitourinary: No no complaints, No bleeding, No dysuria, No discharge, No flank pain, No hematuria, No other Skin: No no complaints, No bruising, No erythema, No laceration, No pruritis, No rash, No skin lesions, No other Neurologic: No no complaints, No confusion, No dizziness, No focal-weakness, No headache, No syncope, No seizure, No other Psychological: anxiety Past Medical History Medical History: coronary artery disease Home Meds Reported Medications Sertraline Hcl* (Zoloft*) 50 Mg Tablet, 50 MG PO QHS, #30 TAB 08/04/18 Lisinopril* (Lisinopril*) 40 Mg Tablet, 40 MG PO DAILY, #30 TAB 02/17/18 Amlodipine Besylate* (Amlodipine Besylate*) 10 Mg Tablet, 10 MG PO DAILY, #30 TAB 02/17/18 Carvedilol* (Carvedilol*) 25 Mg Tablet, 25 MG PO BID, #60 TAB 02/17/18 Atorvastatin* (Atorvastatin*) 40 Mg Tablet, 40 MG PO QHS, #30 TAB 02/17/18 Chlorthalidone* (Chlorthalidone*) 25 Mg Tablet, 25 MG PO DAILY, TAB 02/17/18 Medications Current Medications IV Flush (NS 3 ml) 3 ml PER PROTOCOL IV ; Start 08/04/18 at 19:00 Ondansetron HCl (Zofran Inj) 4 mg Q6H PRN IV NAUSEA/VOMITING; Start 08/04/18 at 19:00 Acetaminophen (Tylenol Tab) 650 mg Q6H PRN PO .PAIN 1-3 OR TEMP; Start 08/04/18 at 19:00 Docusate Sodium (Colace) 100 mg Q12H PRN PO .CONSTIPATION; Start 08/04/18 at 19: 00 Zolpidem Tartrate (Ambien) 5 mg QHS PRN PO .INSOMNIA; Start 08/04/18 at 19:00 Amlodipine Besylate (Norvasc) 10 mg DAILY PO Last administered on 08/05/18 08:46; Admin Dose 10 MG; Start 08/05/18 at 09:00 Atorvastatin Calcium (Lipitor) 40 mg QHS PO Last administered on 08/05/18at 20:42; Admin Dose 40 MG; Start 08/04/18 at 21:00 Carvedilol (Coreg) 25 mg BID PO Last administered on 08/05/18 20:45; Admin Dose 25 MG; Start 08/04/18 at 21:00 Chlorthalidone (Hygroton) 25 mg DAILY PO Last administered on 08/05/18 08:45; Admin Dose 25 MG; Start 08/05/18 at 09:00 Lisinopril (Zestril) 40 mg DAILY PO Last administered on 08/05/18 08:46; Admin Dose 40 MG; Start 08/05/18 at 09:00 Sertraline HCl (Zoloft) 50 mg QHS PO Last administered on 08/05/18at 20:44; Admin Dose 50 MG; Start 08/04/18 at 21:00 Albuterol/ Ipratropium (Duoneb) 3 ml Q4H RESP THERAPY PRN HHN SHORTNESS OF BREATH; Start 08/05/18 at 02:30 Morphine Sulfate (morphine) 4 mg Q4H PRN IV .SEVERE PAIN 7-10 Last administered on 08/06/18at 00:44; Admin Dose 4 MG; Start 08/05/18 at 08:30 Nicotine (Nicoderm 14 Mg/ 24hr) 1 patch DAILY TRANSDERM ; Start 08/06/18 at 09:00 Enoxaparin Sodium (Lovenox) 40 mg DAILY SC ; Start 08/06/18 at 09:00 Acetaminophen/ Hydrocodone Bitart ([place] ()) 1 tab Q3H PRN PO MODERATE PAIN LEVEL 4-6 Last administered on 08/06/18at 04:45; Admin Dose 1 TAB; Start 08/05/18 at 20:00 Ketorolac Tromethamine (Toradol) 30 mg Q8 IV Last administered on 08/06/18at 05:45; Admin Dose 30 MG; Start 08/05/18 at 22:00; Stop 08/07/18 at 09:00 Allergies: Coded Allergies: Sulfa (Sulfonamide Antibiotics) (Unverified Allergy, Mild, 08/04/18) Penicillins (Verified Allergy, Unknown, 08/04/18) Family History Significant Family History: asthma, COPD, lung disease Social History Alcohol Use: sober Smoking Status: Current some day smoker Drug Use: none Exam/Review of Systems Exam Vitals Vital Signs Date Temp Pulse Resp B/P (MAP) Pulse Ox O2 O2 Flow FiO2 Time Delivery Rate 08/06/18 98.1 66 18 94/50 (65) 99 02:01 08/05/18 Room Air 15:14 08/04/18 3.0 19:50 Intake and Output 08/05/18 08/05/18 08/06/18 1515:00 23:00 07:00 IntakeIntake Total 740 ml 340 ml OutputOutput Total 20 ml BalanceBalance 740 ml 320 ml Results Result Diagram: 08/06/18 0423 08/06/18 0423 Results 24hrs Laboratory Tests Test 08/06/18 04:23 White Blood Count 12.9 H Red Blood Count 3.69 L Hemoglobin 10.1 L Hematocrit 32.0 L Mean Corpuscular Volume 86.7 Mean Corpuscular Hemoglobin 27.4 L Mean Corpuscular Hemoglobin Concent 31.6 L Red Cell Distribution Width 16.2 H Platelet Count 218 Mean Platelet Volume 10.4 Immature Granulocytes % 0.500 H Neutrophils % 70.0 Lymphocytes % 14.0 L Monocytes % 13.5 H Eosinophils % 1.2 Basophils % 0.8 Nucleated Red Blood Cells % 0.0 Immature Granulocytes # 0.060 H Neutrophils # 9.0 H Lymphocytes # 1.8 Monocytes # 1.7 H Eosinophils # 0.2 Basophils # 0.1 Nucleated Red Blood Cells # 0.0 Sodium Level 138 Potassium Level 4.7 Chloride Level 100 Carbon Dioxide Level 34 H Anion Gap 4 L Blood Urea Nitrogen 33 #H Creatinine 1.32 H Est Glomerular Filtrat Rate mL/min 55 L Glucose Level 88 # Calcium Level 8.6 Phosphorus Level 3.6 Magnesium Level 2.3 Total Bilirubin 0.0 L Direct Bilirubin 0.00 Indirect Bilirubin 0.0 Aspartate Amino Transf (AST/SGOT) 18 Alanine Aminotransferase (ALT/SGPT) 14 Alkaline Phosphatase 63 Total Protein 6.0 L Albumin 3.3 Globulin 2.70 Albumin/Globulin Ratio 1.22 Thyroid Stimulating Hormone (TSH) 2.230 Medications Medication Current Medications IV Flush (NS 3 ml) 3 ml PER PROTOCOL IV ; Start 08/04/18 at 19:00 Ondansetron HCl (Zofran Inj) 4 mg Q6H PRN IV NAUSEA/VOMITING; Start 08/04/18 at 19:00 Acetaminophen (Tylenol Tab) 650 mg Q6H PRN PO .PAIN 1-3 OR TEMP; Start 08/04/18 at 19:00 Docusate Sodium (Colace) 100 mg Q12H PRN PO .CONSTIPATION; Start 08/04/18 at 19:00 Zolpidem Tartrate (Ambien) 5 mg QHS PRN PO .INSOMNIA; Start 08/04/18 at 19:00 Amlodipine Besylate (Norvasc) 10 mg DAILY PO Last administered on 08/05/18at 08:46; Admin Dose 10 MG; Start 08/05/18 at 09:00 Atorvastatin Calcium (Lipitor) 40 mg QHS PO Last administered on 08/05/18at 20:42; Admin Dose 40 MG; Start 08/04/18 at 21:00 Carvedilol (Coreg) 25 mg BID PO Last administered on 08/05/18at 20:45; Admin Dose 25 MG; Start 08/04/18 at 21:00 Chlorthalidone (Hygroton) 25 mg DAILY PO Last administered on 08/05/18 08:45; Admin Dose 25 MG; Start 08/05/18 at 09:00 Lisinopril (Zestril) 40 mg DAILY PO Last administered on 08/05/18 08:46; Admin Dose 40 MG; Start 08/05/18 at 09:00 Sertraline HCl (Zoloft) 50 mg QHS PO Last administered on 08/05/18 20:44; Admin Dose 50 MG; Start 08/04/18 at 21:00 Albuterol/ Ipratropium (Duoneb) 3 ml Q4H RESP THERAPY PRN HHN SHORTNESS OF BREATH; Start 08/05/18 at 02:30 Morphine Sulfate (morphine) 4 mg Q4H PRN IV .SEVERE PAIN 7-10 Last administered on 08/06/18 00:44; Admin Dose 4 MG; Start 08/05/18 at 08:30 Nicotine (Nicoderm 14 Mg/ 24hr) 1 patch DAILY TRANSDERM ; Start 08/06/18 at 09:00 Enoxaparin Sodium (Lovenox) 40 mg DAILY SC ; Start 08/06/18 at 09:00 Acetaminophen/ Hydrocodone Bitart ([place] (10/325)) 1 tab Q3H PRN PO MODERATE PAIN LEVEL 4-6 Last administered on 08/06/18 04:45; Admin Dose 1 TAB; Start 08/05/18 at 20:00 Ketorolac Tromethamine (Toradol) 30 mg Q8 IV Last administered on 08/06/18 05:45; Admin Dose 30 MG; Start 08/05/18 at 22:00; Stop 08/07/18 at 09:00 SCOTTY HUSSEIN August 06, 2018 07:40
[2018-08-06 08:09] VITALS: BP 109/66; PULSE 68; RESP 18
[2018-08-06] MEDS ORDERED: ENOXAPARIN 40 MG/0.4 ML SYG SC SCH (09:00)
[2018-08-06] MEDS: AMLODIPINE 10 MG TAB PO SCH (09:09)
[2018-08-06] MEDS: CHLORTHALIDONE 25 MG TAB PO SCH (09:10)
[2018-08-06] MEDS: LISINOPRIL 20 MG TAB PO SCH (09:10)
[2018-08-06] MEDS: NICOTINE (14 MG/24 HR) PATCH TRANSDERM SCH (09:12)
[2018-08-06 15:09] VITALS: BP 113/61; PULSE 76; RESP 18
--- NOTE | 2018-08-06 18:35 | PN ---
Date/Time of Note Date/Time of Note DATE: 08/06/18 TIME: 18:34 Assessment/Plan VTE Prophylaxis Risk score (from Ns)>0 risk: 8 SCD applied (from Ns): Yes SCD contraindicated: low risk/ambulating Pharmacological prophylaxis: LMWH Lines/Catheters IV Catheter Type (from Nrsg): Saline Lock Urinary Cath still in place: No Assessment/Plan Hospital Course A/P 1. Rt Shoulder Reverse Arthroplasty; pod 3; stable, treat pain; cont wound vac. i added toradol. 2. Tobacco abuse; offered patch 3. H/o Aortic Dissection, repair 4. Htn 5. Dl 6. Wilmer? S: 08/05 mod pain; no dyspnea 08/06 no distress O: vss PE no pallor reg s1s2 no mrg ctab bs+ nt nd no r r g no edema; rt shoulder Vac c/d/i Result Diagram: 08/06/18 0423 08/06/18 0423 Results 24hrs Laboratory Tests Test 08/06/18 04:23 White Blood Count 12.9 H Red Blood Count 3.69 L Hemoglobin 10.1 L Hematocrit 32.0 L Mean Corpuscular Volume 86.7 Mean Corpuscular Hemoglobin 27.4 L Mean Corpuscular Hemoglobin Concent 31.6 L Red Cell Distribution Width 16.2 H Platelet Count 218 Mean Platelet Volume 10.4 Immature Granulocytes % 0.500 H Neutrophils % 70.0 Lymphocytes % 14.0 L Monocytes % 13.5 H Eosinophils % 1.2 Basophils % 0.8 Nucleated Red Blood Cells % 0.0 Immature Granulocytes # 0.060 H Neutrophils # 9.0 H Lymphocytes # 1.8 Monocytes # 1.7 H Eosinophils # 0.2 Basophils # 0.1 Nucleated Red Blood Cells # 0.0 Sodium Level 138 Potassium Level 4.7 Chloride Level 100 Carbon Dioxide Level 34 H Anion Gap 4 L Blood Urea Nitrogen 33 #H Creatinine 1.32 H Est Glomerular Filtrat Rate mL/min 55 L Glucose Level 88 # Calcium Level 8.6 Phosphorus Level 3.6 Magnesium Level 2.3 Total Bilirubin 0.0 L Direct Bilirubin 0.00 Indirect Bilirubin 0.0 Aspartate Amino Transf (AST/SGOT) 18 Alanine Aminotransferase (ALT/SGPT) 14 Alkaline Phosphatase 63 Total Protein 6.0 L Albumin 3.3 Globulin 2.70 Albumin/Globulin Ratio 1.22 Thyroid Stimulating Hormone (TSH) 2.230 Exam/Review of Systems Exam Vitals Vital Signs Date Temp Pulse Resp B/P (MAP) Pulse Ox O2 O2 Flow FiO2 Time Delivery Rate 08/06/18 98.1 76 18 113/61 93 Room Air 15:09 (78) 08/04/18 3.0 19:50 Intake and Output 08/05/18 08/05/18 08/06/18 1515:00 23:00 07:00 IntakeIntake Total 740 ml 340 ml OutputOutput Total 20 ml 0 ml BalanceBalance 740 ml 320 ml 0 ml Results Results 24hrs Laboratory Tests Test 08/06/18 04:23 White Blood Count 12.9 H Red Blood Count 3.69 L Hemoglobin 10.1 L Hematocrit 32.0 L Mean Corpuscular Volume 86.7 Mean Corpuscular Hemoglobin 27.4 L Mean Corpuscular Hemoglobin Concent 31.6 L Red Cell Distribution Width 16.2 H Platelet Count 218 Mean Platelet Volume 10.4 Immature Granulocytes % 0.500 H Neutrophils % 70.0 Lymphocytes % 14.0 L Monocytes % 13.5 H Eosinophils % 1.2 Basophils % 0.8 Nucleated Red Blood Cells % 0.0 Immature Granulocytes # 0.060 H Neutrophils # 9.0 H Lymphocytes # 1.8 Monocytes # 1.7 H Eosinophils # 0.2 Basophils # 0.1 Nucleated Red Blood Cells # 0.0 Sodium Level 138 Potassium Level 4.7 Chloride Level 100 Carbon Dioxide Level 34 H Anion Gap 4 L Blood Urea Nitrogen 33 #H Creatinine 1.32 H Est Glomerular Filtrat Rate mL/min 55 L Glucose Level 88 # Calcium Level 8.6 Phosphorus Level 3.6 Magnesium Level 2.3 Total Bilirubin 0.0 L Direct Bilirubin 0.00 Indirect Bilirubin 0.0 Aspartate Amino Transf (AST/SGOT) 18 Alanine Aminotransferase (ALT/SGPT) 14 Alkaline Phosphatase 63 Total Protein 6.0 L Albumin 3.3 Globulin 2.70 Albumin/Globulin Ratio 1.22 Thyroid Stimulating Hormone (TSH) 2.230 Medications Medication Current Medications IV Flush (NS 3 ml) 3 ml PER PROTOCOL IV ; Start 08/04/18 at 19:00 Ondansetron HCl (Zofran Inj) 4 mg Q6H PRN IV NAUSEA/VOMITING; Start 08/04/18 at 19:00 Acetaminophen (Tylenol Tab) 650 mg Q6H PRN PO .PAIN 1-3 OR TEMP; Start 08/04/18 at 19:00 Docusate Sodium (Colace) 100 mg Q12H PRN PO .CONSTIPATION; Start 08/04/18 at 19:00 Zolpidem Tartrate (Ambien) 5 mg QHS PRN PO .INSOMNIA; Start 08/04/18 at 19:00 Amlodipine Besylate (Norvasc) 10 mg DAILY PO Last administered on 08/06/18 09:09; Admin Dose 10 MG; Start 08/05/18 at 09:00 Atorvastatin Calcium (Lipitor) 40 mg QHS PO Last administered on 08/05/18 20:42; Admin Dose 40 MG; Start 08/04/18 at 21:00 Carvedilol (Coreg) 25 mg BID PO Last administered on 08/06/18 09:10; Admin Dose 25 MG; Start 08/04/18 at 21:00 Chlorthalidone (Hygroton) 25 mg DAILY PO Last administered on 08/06/18 09:10; Admin Dose 25 MG; Start 08/05/18 at 09:00 Lisinopril (Zestril) 40 mg DAILY PO Last administered on 08/06/18 09:10; Admin Dose 40 MG; Start 08/05/18 at 09:00 Sertraline HCl (Zoloft) 50 mg QHS PO Last administered on 08/05/18 20:44; Admin Dose 50 MG; Start 08/04/18 at 21:00 Albuterol/ Ipratropium (Duoneb) 3 ml Q4H RESP THERAPY PRN HHN SHORTNESS OF BREATH; Start 08/05/18 at 02:30 Morphine Sulfate (morphine) 4 mg Q4H PRN IV .SEVERE PAIN 7-10 Last administered on 08/06/18 17:18; Admin Dose 4 MG; Start 08/05/18 at 08:30 Nicotine (Nicoderm 14 Mg/ 24hr) 1 patch DAILY TRANSDERM Last administered on 08/06/18 09:12; Admin Dose 1 PATCH; Start 08/06/18 at 09:00 Enoxaparin Sodium (Lovenox) 40 mg DAILY SC Last administered on 08/06/18 09:12; Admin Dose 40 MG; Start 08/06/18 at 09:00 Acetaminophen/ Hydrocodone Bitart ([place] (10/325)) 1 tab Q3H PRN PO MODERATE PAIN LEVEL 4-6 Last administered on 08/06/18at 16:01; Admin Dose 1 TAB; Start 08/05/18 at 20:00 Ketorolac Tromethamine (Toradol) 30 mg Q8 IV Last administered on 08/06/18at 14:07; Admin Dose 30 MG; Start 08/05/18 at 22:00; Stop 08/07/18 at 09:00 NAILA BRUNO MD August 06, 2018 18:35
[2018-08-06 20:53] VITALS: BP 111/70; PULSE 74; RESP 18
[2018-08-06] MEDS: ATORVASTATIN 40 MG TAB PO SCH (21:11)
[2018-08-06] MEDS: SERTRALINE 50 MG TAB PO SCH (21:12)
[2018-08-06] MEDS: DOCUSATE SODIUM 100 MG CAP PO PRN (21:24)
[2018-08-07] MEDS: morphine 2 MG INJ IV PRN ×6 (01:10→21:34)
[2018-08-07 03:00] VITALS: BP 100/51; PULSE 61; RESP 18
[2018-08-07] MEDS: HYDROCODONE/APAP (10/325) TAB PO PRN ×3 (04:21→12:21)
[2018-08-07] MEDS: KETOROLAC 30 MG INJ IV SCH (05:31)
[2018-08-07 07:15] VITALS: BP 110/58; PULSE 57; RESP 18
[2018-08-07] MEDS: DOCUSATE SODIUM 100 MG CAP PO PRN ×2 (08:56→21:38)
[2018-08-07] MEDS: NICOTINE (14 MG/24 HR) PATCH TRANSDERM SCH (08:57)
[2018-08-07] MEDS ORDERED: ENOXAPARIN 30 MG/0.3 ML SYG SC SCH (09:00)
[2018-08-07] MEDS: AMLODIPINE 10 MG TAB PO SCH (09:02)
--- NOTE | 2018-08-07 15:55 | PN ---
Date/Time of Note Date/Time of Note DATE: 08/07/18 TIME: 15:54 Assessment/Plan VTE Prophylaxis Risk score (from Ns)>0 risk: 8 SCD applied (from Ns): No SCD contraindicated: low risk/ambulating Pharmacological prophylaxis: LMWH Lines/Catheters IV Catheter Type (from Nrsg): Saline Lock Urinary Cath still in place: No Assessment/Plan Hospital Course A/P 1. Rt Shoulder Reverse Arthroplasty; pod 4; stable, treat pain; cont wound vac. i added toradol. +1gpc in wound cx. 2. Tobacco abuse; offered patch 3. H/o Aortic Dissection, repair 4. Htn 5. Dl 6. Wilmer? S: 08/05 mod pain; no dyspnea 08/06 no distress 08/07: No distress O: vss PE no pallor reg s1s2 no mrg ctab bs+ nt nd no r r g no edema; rt shoulder Vac c/d/i Result Diagram: 08/06/18 0423 08/06/18422 Exam/Review of Systems Exam Vitals Vital Signs Date Temp Pulse Resp B/P (MAP) Pulse Ox O2 O2 Flow FiO2 Time Delivery Rate 08/07/18 97.9 57 18 110/58 99 Room Air 07:15 (75) 08/04/18 3.0 19:50 Intake and Output 08/06/18 08/06/18 08/07/18 1414:59 22:59 06:59 IntakeIntake Total 660 ml 930 ml 400 ml OutputOutput Total 0 ml BalanceBalance 660 ml 930 ml 400 ml Medications Medication Current Medications IV Flush (NS 3 ml) 3 ml PER PROTOCOL IV ; Start 08/04/18 at 19:00 Ondansetron HCl (Zofran Inj) 4 mg Q6H PRN IV NAUSEA/VOMITING; Start 08/04/18 at 19:00 Acetaminophen (Tylenol Tab) 650 mg Q6H PRN PO .PAIN 1-3 OR TEMP; Start 08/04/18 at 19:00 Docusate Sodium (Colace) 100 mg Q12H PRN PO .CONSTIPATION Last administered on 08/07/18at 08:56; Admin Dose 100 MG; Start 08/04/18 at 19:00 Zolpidem Tartrate (Ambien) 5 mg QHS PRN PO .INSOMNIA; Start 08/04/18 at 19:00 Amlodipine Besylate (Norvasc) 10 mg DAILY PO Last administered on 08/07/18 0 9:02; Admin Dose 10 MG; Start 08/05/18 at 09:00 Atorvastatin Calcium (Lipitor) 40 mg QHS PO Last administered on 08/06/18 21:11; Admin Dose 40 MG; Start 08/04/18 at 21:00 Carvedilol (Coreg) 25 mg BID PO Last administered on 08/07/18 09:01; Admin Dose 25 MG; Start 08/04/18 at 21:00 Sertraline HCl (Zoloft) 50 mg QHS PO Last administered on 08/06/18 21:12; Admin Dose 50 MG; Start 08/04/18 at 21:00 Albuterol/ Ipratropium (Duoneb) 3 ml Q4H RESP THERAPY PRN HHN SHORTNESS OF BREATH; Start 08/05/18 at 02:30 Morphine Sulfate (morphine) 4 mg Q4H PRN IV .SEVERE PAIN 7-10 Last administered on 08/07/18 13:28; Admin Dose 4 MG; Start 08/05/18 at 08:30 Nicotine (Nicoderm 14 Mg/ 24hr) 1 patch DAILY TRANSDERM Last administered on 08/07/18 08:57; Admin Dose 1 PATCH; Start 08/06/18 at 09:00 Acetaminophen/ Hydrocodone Bitart ([place] (10/325)) 1 tab Q3H PRN PO MODERATE PAIN LEVEL 4-6 Last administered on 08/07/18 12:21; Admin Dose 1 TAB; Start 08/05/18 at 20:00 Enoxaparin Sodium (Lovenox) 30 mg DAILY SC Last administered on 08/07/18 08:59; Admin Dose 30 MG; Start 08/07/18 at 09:00 Lisinopril (Zestril) 10 mg DAILY PO ; Start 08/08/18 at 09:00 NAILA BRUNO MD August 07, 2018 15:55
[2018-08-07] MEDS: ONDANSETRON 4 MG INJ IV PRN (18:51)
[2018-08-07 19:50] VITALS: BP 135/62; PULSE 82; RESP 20
[2018-08-07] MEDS: SERTRALINE 50 MG TAB PO SCH (20:33)
[2018-08-07] MEDS: ATORVASTATIN 40 MG TAB PO SCH (20:33)
--- NOTE | 2018-08-07 20:53 | PN ---
Date/Time of Note Date/Time of Note DATE: 08/07/18 TIME: 20:49 Subjective Doing well, wound vac in place Objective Vitals Vital Signs Date Temp Pulse Resp B/P (MAP) Pulse Ox O2 O2 Flow FiO2 Time Delivery Rate 08/07/18 98.5 82 20 135/62 94 Room Air 19:50 (86) 08/04/18 3.0 19:50 Intake and Output 08/06/18 08/06/18 08/07/18 1515:00 23:00 07:00 IntakeIntake Total 660 ml 930 ml 400 ml OutputOutput Total 0 ml BalanceBalance 660 ml 930 ml 400 ml Incision c/d/i, trace output woundvac. NVI distally. Results Result Diagram: 08/06/1842208/06/18422 Results 24 hrs Gram + cocci on culture Medications Medications Current Medications IV Flush (NS 3 ml) 3 ml PER PROTOCOL IV ; Start 08/04/18 at 19:00 Ondansetron HCl (Zofran Inj) 4 mg Q6H PRN IV NAUSEA/VOMITING Last administered on 08/07/18at 18:51; Admin Dose 4 MG; Start 08/04/18 at 19:00 Acetaminophen (Tylenol Tab) 650 mg Q6H PRN PO .PAIN 1-3 OR TEMP; Start 08/04/18 at 19:00 Docusate Sodium (Colace) 100 mg Q12H PRN PO .CONSTIPATION Last administered on 08/07/18at 08:56; Admin Dose 100 MG; Start 08/04/18 at 19:00 Zolpidem Tartrate (Ambien) 5 mg QHS PRN PO .INSOMNIA; Start 08/04/18 at 19:00 Amlodipine Besylate (Norvasc) 10 mg DAILY PO Last administered on 08/07/18 09:02; Admin Dose 10 MG; Start 08/05/18 at 09:00 Atorvastatin Calcium (Lipitor) 40 mg QHS PO Last administered on 08/07/18 20:33; Admin Dose 40 MG; Start 08/04/18 at 21:00 Carvedilol (Coreg) 25 mg BID PO Last administered on 08/07/18at 20:34; Admin Dose 25 MG; Start 08/04/18 at 21:00 Sertraline HCl (Zoloft) 50 mg QHS PO Last administered on 08/07/18 20:33; Admin Dose 50 MG; Start 08/04/18 at 21:00 Albuterol/ Ipratropium (Duoneb) 3 ml Q4H RESP THERAPY PRN HHN SHORTNESS OF BREATH; Start 08/05/18 at 02:30 Morphine Sulfate (morphine) 4 mg Q4H PRN IV .SEVERE PAIN 7-10 Last administered on 08/07/18 17:22; Admin Dose 4 MG; Start 08/05/18 at 08:30 Nicotine (Nicoderm 14 Mg/ 24hr) 1 patch DAILY TRANSDERM Last administered on 08/07/18 08:57; Admin Dose 1 PATCH; Start 08/06/18 at 09:00 Acetaminophen/ Hydrocodone Bitart ([place] (10)) 1 tab Q3H PRN PO MODERATE PAIN LEVEL 4-6 Last administered on 08/07/18 12:21; Admin Dose 1 TAB; Start 08/05/18 at 20:00 Enoxaparin Sodium (Lovenox) 30 mg DAILY SC Last administered on 08/07/18at 08: 59; Admin Dose 30 MG; Start 08/07/18 at 09:00 Lisinopril (Zestril) 10 mg DAILY PO ; Start 08/08/18 at 09:00 VTE Prophylaxis Risk score (from Nsg)>0 risk: 8 SCD applied (from Nsg): No SCD contraindication: low risk/ambulating Pharmacological prophylaxis: NA/contraindicated Pharm Contraindication: low risk/ambulating Lines/Catheters IV Catheter Type: Saline Lock Arvizu in Place: No Assessment/Plan Hospital Course status post removal of cement spacer and placement of Reverse shoulder arth roplasty. Assessment/Plan Wound vac changed to regular dressing. Will consult ID for culture result. This was routine culture taken of the surgical wound. Contamination possible. No visible signs of infection at time of surgery and preop inflammatory labs were normal. Will consult ID for possible empiric antibiotics given his history. SARANYA JONES MD August 07, 2018 20:53
[2018-08-08] VITALS (13 sets, daily range): BP systolic 86–141; BP diastolic 46–71; PULSE 79–153; RESP 19–22
[2018-08-08] MEDS ORDERED: SOD CHLORIDE 0.9% 500 ML IV ONE ×2 (04:00→06:00)
[2018-08-08] MEDS ORDERED: Pantoprazole 80 mg in NS 100 ml LD IV ONE (04:00)
[2018-08-08] MEDS ORDERED: VANCOMYCIN IV PER PHARMACY XX SCH (04:00)
[2018-08-08] MEDS ORDERED: PANTOPRAZOLE 40 MG INJ IV ONE (04:00)
[2018-08-08] MEDS ORDERED: VANCOMYCIN HCL 1.5 GM in SOD CHLORIDE 0.9% 250 ML IVPB ONE (05:00)
[2018-08-08] MEDS: ONDANSETRON 4 MG INJ IV PRN (05:10)
[2018-08-08] MEDS ORDERED: METOCLOPRAMIDE 10 MG INJ IV ONE (05:30)
--- NOTE | 2018-08-08 05:48 | EN ---
Date/Time of Note Date/Time of Note DATE: 08/08/18 TIME: 05:43 Event Note Medicine Medicine Event Note Patient had an acute onset of coffee-ground emesis. Initially about 200 cc. Patient was also hypotensive with a systolic blood pressure in the 70s and hypoxic with oxygen saturation of 88%. Patient was given 500 cc NS bolus, placed on oxygen, started on Protonix drip and transferred to telemetry. He had another 500 cc of coffee-ground emesis in the telemetry unit. His blood pressure responded quickly to IV fluids. Oxygen saturation 99% on 3 L. PLAN -Continue telemetry monitoring. If any sign of decompensation, will transfer to ICU -Stat H&H -Continue Protonix drip -Chest x-ray for evaluation of aspiration. Additional imaging with chest CT per clinical course -Continue IV fluid -KUB -Stop Lovenox -Keep NPO -GI consult -Of note, unrelated to this, blood culture grew gram-positive cocci and as such patient was started on vancomycin. His allergies are to penicillin and sulfa. MARK ROGERS MD August 08, 2018 05:48
[2018-08-08] MEDS: PANTOPRAZOLE IV 80 MG in SOD CHLORIDE 0.9% 100 ML IV SCH ×2 (06:00→22:26)
[2018-08-08] MEDS: SOD CHLORIDE 0.9% 1,000 ML IV SCH ×4 (06:48→22:00)
[2018-08-08] MEDS: AMLODIPINE 10 MG TAB PO SCH (08:18)
[2018-08-08] MEDS: NICOTINE (14 MG/24 HR) PATCH TRANSDERM SCH (08:27)
[2018-08-08] MEDS ORDERED: LISINOPRIL 10 MG TAB PO SCH (09:00)
--- NOTE | 2018-08-08 09:51 | PN ---
Date/Time of Note Date/Time of Note DATE: 08/08/18 TIME: 09:40 Subjective Shoulder stable. Patient had episode of coffee ground emesis with hypotension. Responded to fluids and was transferred to telemetry floor. He is stable on the floor. His shoulder is at baseline and he is not wearing his sling correctly. Routine culture swap from surgery grew rare Gram + cocci Objective Vitals Vital Signs Date Temp Pulse Resp B/P (MAP) Pulse Ox O2 O2 Flow FiO2 Time Delivery Rate 08/08/18 103 08:59 08/08/18 98.2 20 113/52 96 07:29 (72) 08/08/18 3.0 04:15 08/07/18 Room Air 19:50 Intake and Output 08/07/18 08/07/18 08/08/18 1414:59 22:59 06:59 IntakeIntake Total 680 ml 740 ml 940 ml OutputOutput Total 0 ml BalanceBalance 680 ml 740 ml 940 ml Right shoulder dressing c/d/i - zero output from yesterday. Motion of shoulder prosthesis is well maintained. NVI distally m/r/u nerves and good pulses. Sling not on correctly. Results Result Diagram: 08/08/1861808/08/18618 Medications Medications Current Medications IV Flush (NS 3 ml) 3 ml PER PROTOCOL IV ; Start 08/04/18 at 19:00 Ondansetron HCl (Zofran Inj) 4 mg Q6H PRN IV NAUSEA/VOMITING Last administered on 08/08/18at 05:10; Admin Dose 4 MG; Start 08/04/18 at 19:00 Acetaminophen (Tylenol Tab) 650 mg Q6H PRN PO .PAIN 1-3 OR TEMP; Start 08/04/18 at 19:00 Docusate Sodium (Colace) 100 mg Q12H PRN PO .CONSTIPATION Last administered on 08/07/18at 21:38; Admin Dose 100 MG; Start 08/04/18 at 19:00 Zolpidem Tartrate (Ambien) 5 mg QHS PRN PO .INSOMNIA; Start 08/04/18 at 19:00 Amlodipine Besylate (Norvasc) 10 mg DAILY PO Last administered on 08/07/18at 09:02; Admin Dose 10 MG; Start 08/05/18 at 09:00 Atorvastatin Calcium (Lipitor) 40 mg QHS PO Last administered on 08/07/18 20:33; Admin Dose 40 MG; Start 08/04/18 at 21:00 Carvedilol (Coreg) 25 mg BID PO Last administered on 08/07/18 20:34; Admin Dose 25 MG; Start 08/04/18 at 21:00 Sertraline HCl (Zoloft) 50 mg QHS PO Last administered on 08/07/18 20:33; A dmin Dose 50 MG; Start 08/04/18 at 21:00 Albuterol/ Ipratropium (Duoneb) 3 ml Q4H RESP THERAPY PRN HHN SHORTNESS OF BREATH; Start 08/05/18 at 02:30 Morphine Sulfate (morphine) 4 mg Q4H PRN IV .SEVERE PAIN 7-10 Last administered on 08/07/18 21:34; Admin Dose 4 MG; Start 08/05/18 at 08:30 Nicotine (Nicoderm 14 Mg/ 24hr) 1 patch DAILY TRANSDERM Last administered on 08/08/18 08:27; Admin Dose 1 PATCH; Start 08/06/18 at 09:00 Acetaminophen/ Hydrocodone Bitart ([place] (10/325)) 1 tab Q3H PRN PO MODERATE PAIN LEVEL 4-6 Last administered on 08/07/18 12:21; Admin Dose 1 TAB; Start 08/05/18 at 20:00 Lisinopril (Zestril) 10 mg DAILY PO ; Start 08/08/18 at 09:00 Vancomycin HCl (Vanco Iv Per Pharmacy) VANCOMYCIN PER PHARMACY PER PROTOCOL XX ; Start 08/08/18 at 04:00 Vancomycin HCl 250 ml @ 125 mls/hr Q12H IVPB ; Start 08/08/18 at 17:00 Pantoprazole 80 mg/Sodium Chloride 100 ml @ 10 mls/hr Q10H IV Last administered on 08/08/18 06:00; Admin Dose 10 MLS/HR; Start 08/08/18 at 04:30 Sodium Chloride 1,000 ml @ 100 mls/hr Q10H IV Last administered on 08/08/18 06:48; Admin Dose 100 MLS/HR; Start 08/08/18 at 07:00 VTE Prophylaxis Risk score (from Nsg)>0 risk: 8 SCD applied (from Nsg): Yes SCD contraindication: low risk/ambulating Pharmacological prophylaxis: NA/contraindicated Pharm Contraindication: low risk/ambulating, bleeding Lines/Catheters IV Catheter Type: Peripheral IV Arvizu in Place: No Assessment/Plan Hospital Course status post removal of cement spacer and placement of Reverse shoulder arthroplasty. Assessment/Plan Shoulder - ID has been consulted regarding the positive culture from surgery. The patient has extensive history of infections. After two antiobiotic spacer changes in the past 18 months, his preoperative labs (ESR,CRP,CBC) were all normal, his preoperative right shoulder aspiration (Gram stain, Aerobic, Anaerobic) were all negative in the weeks prior to surgery. He has no signs of infection at the time of surgery and none currently. Antibiotic powder was placed in the surgical site as routine, as well. 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 I will await ID recommendations. I have also told Al he really needs to wear his sling. His wound is still fresh and he is going to have to endure several transfers, bed changes, procedures, images etc given the new event with his GI bleeding so he needs to the protection from sling. GI has been consulted regarding the bleeding. SARANYA JONES MD August 08, 2018 09:50
--- NOTE | 2018-08-08 11:43 | PN ---
Date/Time of Note Date/Time of Note DATE: 08/08/18 TIME: 11:42 Assessment/Plan VTE Prophylaxis Risk score (from Ns)>0 risk: 8 [place] [facility] [place] SCD contraindicated: low risk/ambulating Pharmacological prophylaxis: NA/contraindicated Pharm contraindication: bleeding Lines/Catheters IV Catheter Type (from [facility]): Peripheral IV Urinary Cath still in place: No Assessment/Plan Hospital Course A/P 1. Rt Shoulder Reverse Arthroplasty; pod 5; stable, treat pain; cont wound vac. dced toradol. +1gpc in wound cx. 2. Tobacco abuse; offered patch 3. H/o Aortic Dissection, repair 4. Htn 5. Dl 6. Wilmer? 7. Gi Bleed; npo/ egd/ ppi S: 08/05 mod pain; no dyspnea 08/06 no distress 08/07: No distress 08/08: ugib; agitated; low bp O: vss PE no pallor reg s1s2 no mrg ctab bs+ nt nd no r r g no edema; rt shoulder Vac c/d/i non focal Result Diagram: 08/08/18 0619 08/08/18 0619 Results 24hrs Laboratory Tests Test 08/08/18 03:49 08/08/18 06:19 Bedside Glucose 126 White Blood Count 12.5 H Red Blood Count 2.11 #L Hemoglobin 5.9 #*L Hematocrit 18.7 #L Mean Corpuscular Volume 88.6 Mean Corpuscular Hemoglobin 28.0 L Mean Corpuscular Hemoglobin Concent 31.6 L Red Cell Distribution Width 16.5 H Platelet Count 205 Mean Platelet Volume 10.7 H Immature Granulocytes % 0.900 H Neutrophils % 85.1 H Segmented Neutrophils % (Manual) 85 H Band Neutrophils % (Manual) 2 Lymphocytes % 7.8 L Lymphocytes % (Manual) 9 L Monocytes % 5.7 Monocytes % (Manual) 3 Eosinophils % 0.2 Basophils % 0.3 Basophils % (Manual) 1 Nucleated Red Blood Cells % 0.0 Immature Granulocytes # 0.110 H Neutrophils # 10.7 H Neutrophils # (Manual) 10.7 H Band Neutrophils # 0.2 Lymphocytes (Manual) 1.1 Lymphocytes # 1.0 Monocytes # 0.7 Monocytes # (Manual) 0.3 Eosinophils # 0.0 Basophils # 0.0 Basophils # (Manual) 0.1 H Nucleated Red Blood Cells # 0.0 Platelet Estimate NORMAL Giant Platelets 5 H Poikilocytosis 1+ Anisocytosis 1+ Sodium Level 138 Potassium Level 4.8 Chloride Level 110 Carbon Dioxide Level 22 Anion Gap 6 Blood Urea Nitrogen 94 H Creatinine 1.08 Est Glomerular Filtrat Rate mL/min > 60 Glucose Level 105 Calcium Level 7.3 L Exam/Review of Systems Exam Vitals Vital Signs Date Temp Pulse Resp B/P (MAP) Pulse Ox O2 O2 Flow FiO2 Time Delivery Rate 08/08/18 120 11:07 08/08/18 98.2 20 113/52 96 07:29 (72) 08/08/18 3.0 04:15 08/07/18 Room Air 19:50 Intake and Output 08/07/18 08/07/18 08/08/18 1515:00 23:00 07:00 IntakeIntake Total 680 ml 740 ml 940 ml OutputOutput Total 0 ml BalanceBalance 680 ml 740 ml 940 ml Results Results 24hrs Laboratory Tests Test 08/08/18 03:49 08/08/18 06:19 Bedside Glucose 126 White Blood Count 12.5 H Red Blood Count 2.11 #L Hemoglobin 5.9 #*L Hematocrit 18.7 #L Mean Corpuscular Volume 88.6 Mean Corpuscular Hemoglobin 28.0 L Mean Corpuscular Hemoglobin Concent 31.6 L Red Cell Distribution Width 16.5 H Platelet Count 205 Mean Platelet Volume 10.7 H Immature Granulocytes % 0.900 H Neutrophils % 85.1 H Segmented Neutrophils % (Manual) 85 H Band Neutrophils % (Manual) 2 Lymphocytes % 7.8 L Lymphocytes % (Manual) 9 L Monocytes % 5.7 Monocytes % (Manual) 3 Eosinophils % 0.2 Basophils % 0.3 Basophils % (Manual) 1 Nucleated Red Blood Cells % 0.0 Immature Granulocytes # 0.110 H Neutrophils # 10.7 H Neutrophils # (Manual) 10.7 H Band Neutrophils # 0.2 Lymphocytes (Manual) 1.1 Lymphocytes # 1.0 Monocytes # 0.7 Monocytes # (Manual) 0.3 Eosinophils # 0.0 Basophils # 0.0 Basophils # (Manual) 0.1 H Nucleated Red Blood Cells # 0.0 Platelet Estimate NORMAL Giant Platelets 5 H Poikilocytosis 1+ Anisocytosis 1+ Sodium Level 138 Potassium Level 4.8 Chloride Level 110 Carbon Dioxide Level 22 Anion Gap 6 Blood Urea Nitrogen 94 H Creatinine 1.08 Est Glomerular Filtrat Rate mL/min > 60 Glucose Level 105 Calcium Level 7.3 L Medications Medication Current Medications IV Flush (NS 3 ml) 3 ml PER PROTOCOL IV ; Start 08/04/18 at 19:00 Ondansetron HCl (Zofran Inj) 4 mg Q6H PRN IV NAUSEA/VOMITING Last administered on 08/08/18 05:10; Admin Dose 4 MG; Start 08/04/18 at 19:00 Acetaminophen (Tylenol Tab) 650 mg Q6H PRN PO .PAIN 1-3 OR TEMP; Start 08/04/18 at 19:00 Docusate Sodium (Colace) 100 mg Q12H PRN PO .CONSTIPATION Last administered on 08/07/18 21:38; Admin Dose 100 MG; Start 08/04/18 at 19:00 Zolpidem Tartrate (Ambien) 5 mg QHS PRN PO .INSOMNIA; Start 08/04/18 at 19:00 Amlodipine Besylate (Norvasc) 10 mg DAILY PO Last administered on 08/07/18 09:02; Admin Dose 10 MG; Start 08/05/18 at 09:00 Atorvastatin Calcium (Lipitor) 40 mg QHS PO Last administered on 08/07/18 2 0:33; Admin Dose 40 MG; Start 08/04/18 at 21:00 Carvedilol (Coreg) 25 mg BID PO Last administered on 08/07/18 20:34; Admin Dose 25 MG; Start 08/04/18 at 21:00 Sertraline HCl (Zoloft) 50 mg QHS PO Last administered on 08/07/18 20:33; Admin Dose 50 MG; Start 08/04/18 at 21:00 Albuterol/ Ipratropium (Duoneb) 3 ml Q4H RESP THERAPY PRN HHN SHORTNESS OF BREATH; Start 08/05/18 at 02:30 Morphine Sulfate (morphine) 4 mg Q4H PRN IV .SEVERE PAIN 7-10 Last administered on 08/07/18 21:34; Admin Dose 4 MG; Start 08/05/18 at 08:30 Nicotine (Nicoderm 14 Mg/ 24hr) 1 patch DAILY TRANSDERM Last administered on 08/08/18 08:27; Admin Dose 1 PATCH; Start 08/06/18 at 09:00 Acetaminophen/ Hydrocodone Bitart ([place] ()) 1 tab Q3H PRN PO MODERATE PAIN LEVEL 4-6 Last administered on 08/07/18at 12:21; Admin Dose 1 TAB; Start 08/05/18 at 20:00 Lisinopril (Zestril) 10 mg DAILY PO ; Start 08/08/18 at 09:00 Vancomycin HCl (Vanco Iv Per Pharmacy) VANCOMYCIN PER PHARMACY PER PROTOCOL XX ; Start 08/08/18 at 04:00 Vancomycin HCl 250 ml @ 125 mls/hr Q12H IVPB ; Start 08/08/18 at 17:00 Pantoprazole 80 mg/Sodium Chloride 100 ml @ 10 mls/hr Q10H IV Last administered on 08/08/18at 06:00; Admin Dose 10 MLS/HR; Start 08/08/18 at 04:30 Sodium Chloride 1,000 ml @ 100 mls/hr Q10H IV Last administered on 08/08/18at 06:48; Admin Dose 100 MLS/HR; Start 08/08/18 at 07:00 NAILA BRUNO MD August 08, 2018 11:43
--- NOTE | 2018-08-08 15:20 | CONS ---
Assessment/Plan Assessment/Plan Assessment/Plan (Daily) Acute upper GI bleeding - possibly due to Lovenox Anemia secondary to above Hematemesis and melena Septic right shoulder s/p reverse arthroplasty HTN Hx of aortic dissection s/p repair Plan: Discussed with the patient the needs to proceed with EGD and possibly colonoscopy. Will plan to proceed with EGD first tomorrow to evaluate source of upper GI bleeding. The benefits, alternatives, and risks of procedure were discussed with the patient who is agreeable to proceed. Continue protonix infusion. Monitor CBC q8 hours. Transfuse for hemoglobin less than 7.5 Hold any anticoagulants. Avoid NSAIDS. Patient seen in collaboration with Dr. Nunes. CC: SHERMAN NUNES MD ; Consultation Date/Type/Reason Admit Date/Time August 04, 2018 at 19:22 Date of Consultation: August 08, 2018 Type of Consult gastroenterology Reason for Consultation upper gi bleeding Requesting Provider: NAILA BRUNO MD Date/Time of Note DATE: 08/08/18 TIME: 14:58 Hx of Present Illness Mr. Garnett is a 63 y/o male with a history of septic shoulder and aortic dissection repair about 40 years ago. He is admitted for right shoulder arthroplastic due to a septic joint. He is status post reverse total shoulder arthroplasty on 08/04/[address] Casillas. He was transferred to the [facility] for hematemesis and now melena stools. He was found to have hypotension and a drop in hemoglobin to 5.9. He denies any history of NSAIDS or blood thinners though did get Lovenox shots after his surgery. He is npo, denies nausea currently, reports mild abdominal pain. Denies shortness of breath, fevers, chills, or weakness. He denies any prior history of gastric ulcer, EGD or colonoscopy. A 10 point review of systems is otherwise negative except as mentioned in the above HPI. Past Medical History Medical History: coronary artery disease Home Meds Reported Medications Sertraline Hcl* (Zoloft*) 50 Mg Tablet, 50 MG PO QHS, #30 TAB 08/04/18 Lisinopril* (Lisinopril*) 40 Mg Tablet, 40 MG PO DAILY, #30 TAB 02/17/18 Amlodipine Besylate* (Amlodipine Besylate*) 10 Mg Tablet, 10 MG PO DAILY, #30 TAB 02/17/18 Carvedilol* (Carvedilol*) 25 Mg Tablet, 25 MG PO BID, #60 TAB 02/17/18 Atorvastatin* (Atorvastatin*) 40 Mg Tablet, 40 MG PO QHS, #30 TAB 02/17/18 Chlorthalidone* (Chlorthalidone*) 25 Mg Tablet, 25 MG PO DAILY, TAB 02/17/18 Medications Current Medications IV Flush (NS 3 ml) 3 ml PER PROTOCOL IV ; Start 08/04/18 at 19:00 Ondansetron HCl (Zofran Inj) 4 mg Q6H PRN IV NAUSEA/VOMITING Last administered on 08/08/18 05:10; Admin Dose 4 MG; Start 08/04/18 at 19:00 Acetaminophen (Tylenol Tab) 650 mg Q6H PRN PO .PAIN 1-3 OR TEMP; Start 08/04/18 at 19:00 Docusate Sodium (Colace) 100 mg Q12H PRN PO .CONSTIPATION Last administered on 08/07/18 21:38; Admin Dose 100 MG; Start 08/04/18 at 19:00 Zolpidem Tartrate (Ambien) 5 mg QHS PRN PO .INSOMNIA; Start 08/04/18 at 19:00 Atorvastatin Calcium (Lipitor) 40 mg QHS PO Last administered on 08/07/18at 20:33; Admin Dose 40 MG; Start 08/04/18 at 21:00 Sertraline HCl (Zoloft) 50 mg QHS PO Last administered on 08/07/18 20:33; Admin Dose 50 MG; Start 08/04/18 at 21:00 Albuterol/ Ipratropium (Duoneb) 3 ml Q4H RESP THERAPY PRN HHN SHORTNESS OF BREATH; Start 08/05/18 at 02:30 Morphine Sulfate (morphine) 4 mg Q4H PRN IV .SEVERE PAIN 7-10 Last administered on 08/07/18at 21:34; Admin Dose 4 MG; Start 08/05/18 at 08:30 Nicotine (Nicoderm 14 Mg/ 24hr) 1 patch DAILY TRANSDERM Last administered on 08/08/18 08:27; Admin Dose 1 PATCH; Start 08/06/18 at 09:00 Acetaminophen/ Hydrocodone Bitart ([place] (10)) 1 tab Q3H PRN PO MODERATE PAIN LEVEL 4-6 Last administered on 08/07/18at 12:21; Admin Dose 1 TAB; Start 08/05/18 at 20:00 Vancomycin HCl (Vanco Iv Per Pharmacy) VANCOMYCIN PER PHARMACY PER PROTOCOL XX ; Start 08/08/18 at 04:00 Vancomycin HCl 250 ml @ 125 mls/hr Q12H IVPB ; Start 08/08/18 at 17:00 Pantoprazole 80 mg/Sodium Chloride 100 ml @ 10 mls/hr Q10H IV Last administered on 08/08/18at 06:00; Admin Dose 10 MLS/HR; Start 08/08/18 at 04:30 Sodium Chloride 1,000 ml @ 100 mls/hr Q10H IV Last administered on 08/08/18at 06:48; Admin Dose 100 MLS/HR; Start 08/08/18 at 07:00 Carvedilol (Coreg) 6.25 mg BID PO ; Start 08/11/18 at 21:00 Sodium Chloride 1,000 ml @ 100 mls/hr Q10H IV ; Start 08/08/18 at 12:00 Lorazepam (Ativan) 1 mg Q8H PRN IV AGITATION/ANXIETY; Start 08/08/18 at 12:00 Allergies: Coded Allergies: Sulfa (Sulfonamide Antibiotics) (Unverified Allergy, Mild, 08/04/18) Penicillins (Verified Allergy, Unknown, 08/04/18) Social History Alcohol Use: sober Smoking Status: Current some day smoker Drug Use: none Exam/Review of Systems Exam Vitals Vital Signs Date Temp Pulse Resp B/P (MAP) Pulse Ox O2 O2 Flow FiO2 Time Delivery Rate 08/08/18 153 12:36 08/08/18 97.8 22 86/53 (64) 96 Nasal 2.0 11:47 Cannula Intake and Output 08/07/18 08/07/18 08/08/18 1515:00 23:00 07:00 IntakeIntake Total 680 ml 740 ml 940 ml OutputOutput Total 0 ml BalanceBalance 680 ml 740 ml 940 ml Constitutional: alert, oriented Results Result Diagram: 08/08/1861808/08/18618 Results 24hrs Laboratory Tests Test 08/08/18 03:49 08/08/18 06:19 Bedside Glucose 126 White Blood Count 12.5 H Red Blood Count 2.11 #L Hemoglobin 5.9 #*L Hematocrit 18.7 #L Mean Corpuscular Volume 88.6 Mean Corpuscular Hemoglobin 28.0 L Mean Corpuscular Hemoglobin Concent 31.6 L Red Cell Distribution Width 16.5 H Platelet Count 205 Mean Platelet Volume 10.7 H Immature Granulocytes % 0.900 H Neutrophils % 85.1 H Segmented Neutrophils % (Manual) 85 H Band Neutrophils % (Manual) 2 Lymphocytes % 7.8 L Lymphocytes % (Manual) 9 L Monocytes % 5.7 Monocytes % (Manual) 3 Eosinophils % 0.2 Basophils % 0.3 Basophils % (Manual) 1 Nucleated Red Blood Cells % 0.0 Immature Granulocytes # 0.110 H Neutrophils # 10.7 H Neutrophils # (Manual) 10.7 H Band Neutrophils # 0.2 Lymphocytes (Manual) 1.1 Lymphocytes # 1.0 Monocytes # 0.7 Monocytes # (Manual) 0.3 Eosinophils # 0.0 Basophils # 0.0 Basophils # (Manual) 0.1 H Nucleated Red Blood Cells # 0.0 Platelet Estimate NORMAL Giant Platelets 5 H Poikilocytosis 1+ Anisocytosis 1+ Sodium Level 138 Potassium Level 4.8 Chloride Level 110 Carbon Dioxide Level 22 Anion Gap 6 Blood Urea Nitrogen 94 H Creatinine 1.08 Est Glomerular Filtrat Rate mL/min > 60 Glucose Level 105 Calcium Level 7.3 L Medications Medication Current Medications IV Flush (NS 3 ml) 3 ml PER PROTOCOL IV ; Start 08/04/18 at 19:00 Ondansetron HCl (Zofran Inj) 4 mg Q6H PRN IV NAUSEA/VOMITING Last administered on 08/08/18at 05:10; Admin Dose 4 MG; Start 08/04/18 at 19:00 Acetaminophen (Tylenol Tab) 650 mg Q6H PRN PO .PAIN 1-3 OR TEMP; Start 08/04/18 at 19:00 Docusate Sodium (Colace) 100 mg Q12H PRN PO .CONSTIPATION Last administered on 08/07/18at 21:38; Admin Dose 100 MG; Start 08/04/18 at 19:00 Zolpidem Tartrate (Ambien) 5 mg QHS PRN PO .INSOMNIA; Start 08/04/18 at 19:00 Atorvastatin Calcium (Lipitor) 40 mg QHS PO Last administered on 08/07/18at 20:33; Admin Dose 40 MG; Start 08/04/18 at 21:00 Sertraline HCl (Zoloft) 50 mg QHS PO Last administered on 08/07/18at 20:33; Admin Dose 50 MG; Start 08/04/18 at 21:00 Albuterol/ Ipratropium (Duoneb) 3 ml Q4H RESP THERAPY PRN HHN SHORTNESS OF BREATH; Start 08/05/18 at 02:30 Morphine Sulfate (morphine) 4 mg Q4H PRN IV .SEVERE PAIN 7-10 Last administered on 08/07/18at 21:34; Admin Dose 4 MG; Start 08/05/18 at 08:30 Nicotine (Nicoderm 14 Mg/ 24hr) 1 patch DAILY TRANSDERM Last administered on 08/08/18at 08:27; Admin Dose 1 PATCH; Start 08/06/18 at 09:00 Acetaminophen/ Hydrocodone Bitart ([place] (10/325)) 1 tab Q3H PRN PO MODERATE PAIN LEVEL 4-6 Last administered on 08/07/18at 12:21; Admin Dose 1 TAB; Start 08/05/18 at 20:00 Vancomycin HCl (Vanco Iv Per Pharmacy) VANCOMYCIN PER PHARMACY PER PROTOCOL XX ; Start 08/08/18 at 04:00 Vancomycin HCl 250 ml @ 125 mls/hr Q12H IVPB ; Start 08/08/18 at 17:00 Pantoprazole 80 mg/Sodium Chloride 100 ml @ 10 mls/hr Q10H IV Last administered on 08/08/18at 06:00; Admin Dose 10 MLS/HR; Start 08/08/18 at 04:30 Sodium Chloride 1,000 ml @ 100 mls/hr Q10H IV Last administered on 08/08/18at 06:48; Admin Dose 100 MLS/HR; Start 08/08/18 at 07:00 Carvedilol (Coreg) 6.25 mg BID PO ; Start 08/11/18 at 21:00 Sodium Chloride 1,000 ml @ 100 mls/hr Q10H IV ; Start 08/08/18 at 12:00 Lorazepam (Ativan) 1 mg Q8H PRN IV AGITATION/ANXIETY; Start 08/08/18 at 12:00 ZECHARIAH MANN NP August 08, 2018 15:09
[2018-08-08] MEDS: morphine 2 MG INJ IV PRN ×2 (15:31→23:31)
[2018-08-08] MEDS: LORAZEPAM 2 MG INJ IV PRN (17:02)
[2018-08-08] MEDS: VANCOMYCIN 1 GM 250 ML IVPB SCH (18:20)
[2018-08-08] MEDS: SERTRALINE 50 MG TAB PO SCH (22:26)
[2018-08-08] MEDS: ATORVASTATIN 40 MG TAB PO SCH (22:26)
[2018-08-09] VITALS (18 sets, daily range): BP systolic 117–152; BP diastolic 52–90; PULSE 80–101; RESP 16–30
[2018-08-09] MEDS: PANTOPRAZOLE IV 80 MG in SOD CHLORIDE 0.9% 100 ML IV SCH ×2 (00:30→12:08)
[2018-08-09] MEDS: ZOLPIDEM 5 MG TAB PO PRN (00:37)
[2018-08-09] MEDS: SOD CHLORIDE 0.9% 1,000 ML IV SCH ×5 (03:00→17:32)
[2018-08-09] MEDS: morphine 2 MG INJ IV PRN ×4 (04:36→21:40)
[2018-08-09] MEDS: VANCOMYCIN 1 GM 250 ML IVPB SCH ×2 (04:47→17:31)
[2018-08-09] MEDS: LORAZEPAM 2 MG INJ IV PRN ×2 (06:15→10:20)
[2018-08-09] MEDS: NICOTINE (14 MG/24 HR) PATCH TRANSDERM SCH (09:35)
--- NOTE | 2018-08-09 12:55 | CONS ---
Assessment/Plan Assessment/Plan Hospital Course (Demo Recall) 1 sUBJECTIVE: Denies any bleeding at this time. OBJECTIVE: Physical Exam General: Adequately build 63 year-old male lying in bed in no apparent distress. HEENT: Normocephalic, atraumatic. Eyes: Anicteric sclerae, conjunctivae clear. ENT: Nasal septum midline, oral mucosa moist. Neck supple, no JVD noticed. Respiratory: Bilaterally diminished breath sounds. No use of accessory muscles of respiration. No adventitious breath sounds. Cardiovascular: S1, S2 heard. Regular rate and rhythm. Abdomen: Soft, nontender, and nondistended. Bowel sounds positive in all 4 quadrants. Genitourinary: Deferred. Extremities: No cyanosis, no clubbing, no edema. Peripheral pulses palpable. Right shoulder joint dressing. Neurologic: Cranial nerves II through XII grossly intact. The patient is awake, alert, and oriented. Skin: Multiple areas of bruising on bilateral upper extremities. Labs & Vitals per chart ASSESSMENT & PLAN 63-year-old male with comorbidities including attention, COPD, dyslipidemia, depression, and right shoulder surgery with subsequent infection who was brought in for elective right shoulder surgical intervention. The patient underwent a removal of explant of hemiarthroplasty cement spacer, reverse total shoulder arthroplasty, and application of wound VAC on 08/04/2018. Hospitalist was consulted for medical management. On 08/08/2018, the patient had an acute episode of coffee-ground emesis with associated anemia. 1. Right shoulder joint infection. -Status post removal explant of hemiarthroplasty cement spacer, reverse total shoulder arthroplasty, and application of wound VAC on 08/04/2018. -Continue antimicrobials as per sensitivities. -Continue pain control. -Physical therapy as per orthopedic surgery. -Anticoagulation on hold because of gastrointestinal bleeding. 2. Acute gastrointestinal bleeding. -Monitor H&H closely. -Status post 2 units of PRBC transfusion. -Scheduled for esophagogastroduodenoscopy on 08/09/2018. -Continue proton pump inhibitors. 3. Anemia of acute blood loss. -Status post transfusion of 2 units of PRBC. -Monitor H&H closely. 4. Depression. -Continue antidepressants. 5. Dyslipidemia. -Continue statins. 6. Nicotine use. -Continue nicotine patch. 7. COPD. -Stable. -No evidence of any exacerbation. 8. Hypertension. -Continue antihypertensives. 9. Fluids, electrolytes, and nutrition. -N.p.o. 10. DVT prophylaxis -Bilateral SCDs. 11. Plan. -Continue PPI. -Await esophagogastroduodenoscopy. The patient was seen in collaboration with Dr. Henley. Consultation Date/Type/Reason Admit Date/Time August 05, 2018 at 13:00 Initial Consult Date 08/08/18 Type of Consult Medical Reason for Consultation Medical management. Requesting Provider: NAILA BRUNO MD Date/Time of Note DATE: 08/09/18 TIME: 12:54 Exam/Review of Systems Exam Vitals Vital Signs Date Temp Pulse Resp B/P (MAP) Pulse Ox O2 O2 Flow FiO2 Time Delivery Rate 08/09/18 95 12:47 08/09/18 98.2 18 139/81 98 Room Air 11:43 (100) 08/08/18 2.0 11:47 Intake and Output 08/08/18 08/08/18 08/09/18 1515:00 23:00 07:00 IntakeIntake Total 700 ml BalanceBalance 700 ml Results Result Diagram: 08/09/18 0540 08/09/18 0540 Results 24hrs Laboratory Tests Test 08/08/18 20:03 08/09/18 05:40 Hemoglobin 8.3 #L 7.3 L Hematocrit 25.3 #L 21.9 L White Blood Count 9.9 # Red Blood Count 2.56 #L Mean Corpuscular Volume 85.5 Mean Corpuscular Hemoglobin 28.5 L Mean Corpuscular Hemoglobin Concent 33.3 Red Cell Distribution Width 15.7 H Platelet Count 215 Mean Platelet Volume 10.2 Immature Granulocytes % 0.500 H Neutrophils % 71.1 Lymphocytes % 14.0 L Monocytes % 8.4 Eosinophils % 5.3 Basophils % 0.7 Nucleated Red Blood Cells % 0.0 Immature Granulocytes # 0.050 H Neutrophils # 7.0 Lymphocytes # 1.4 Monocytes # 0.8 Eosinophils # 0.5 Basophils # 0.1 Nucleated Red Blood Cells # 0.0 Sodium Level 139 Potassium Level 3.8 Chloride Level 109 Carbon Dioxide Level 25 Anion Gap 5 Blood Urea Nitrogen 38 #H Creatinine 0.76 Est Glomerular Filtrat Rate mL/min > 60 Glucose Level 94 Calcium Level 7.6 L Total Bilirubin 0.4 Direct Bilirubin 0.00 Indirect Bilirubin 0.4 Aspartate Amino Transf (AST/SGOT) 24 Alanine Aminotransferase (ALT/SGPT) 24 Alkaline Phosphatase 48 Total Protein 5.1 L Albumin 2.6 L Globulin 2.50 Albumin/Globulin Ratio 1.04 Medications Medication Current Medications IV Flush (NS 3 ml) 3 ml PER PROTOCOL IV ; Start 08/04/18 at 19:00 Ondansetron HCl (Zofran Inj) 4 mg Q6H PRN IV NAUSEA/VOMITING Last administered on 08/08/18 05:10; Admin Dose 4 MG; Start 08/04/18 at 19:00 Acetaminophen (Tylenol Tab) 650 mg Q6H PRN PO .PAIN 1-3 OR TEMP; Start 08/04/18 at 19:00 Docusate Sodium (Colace) 100 mg Q12H PRN PO .CONSTIPATION Last administered on 08/07/18 21:38; Admin Dose 100 MG; Start 08/04/18 at 19:00 Zolpidem Tartrate (Ambien) 5 mg QHS PRN PO .INSOMNIA Last administered on 08/09/18 00:37; Admin Dose 5 MG; Start 08/04/18 at 19:00 Atorvastatin Calcium (Lipitor) 40 mg QHS PO Last administered on 08/08/18 22:26; Admin Dose 40 MG; Start 08/04/18 at 21:00 Sertraline HCl (Zoloft) 50 mg QHS PO Last administered on 08/08/18 22:26; Admin Dose 50 MG; Start 08/04/18 at 21:00 Albuterol/ Ipratropium (Duoneb) 3 ml Q4H RESP THERAPY PRN HHN SHORTNESS OF BREATH; Start 08/05/18 at 02:30 Morphine Sulfate (morphine) 4 mg Q4H PRN IV .SEVERE PAIN 7-10 Last administered on 08/09/18 11:40; Admin Dose 4 MG; Start 08/05/18 at 08:30 Nicotine (Nicoderm 14 Mg/ 24hr) 1 patch DAILY TRANSDERM Last administered on 08/09/18 09:35; Admin Dose 1 PATCH; Start 08/06/18 at 09:00 Acetaminophen/ Hydrocodone Bitart ([place] (10/325)) 1 tab Q3H PRN PO MODERATE PAIN LEVEL 4-6 Last administered on 08/07/18 12:21; Admin Dose 1 TAB; Start 08/05/18 at 20:00 Vancomycin HCl (Vanco Iv Per Pharmacy) VANCOMYCIN PER PHARMACY PER PROTOCOL XX ; Start 08/08/18 at 04:00 Vancomycin HCl 250 ml @ 125 mls/hr Q12H IVPB Last administered on 08/09/18at 04:47; Admin Dose 125 MLS/HR; Start 08/08/18 at 17:00 Pantoprazole 80 mg/Sodium Chloride 100 ml @ 10 mls/hr Q10H IV Last administered on 08/09/18at 12:08; Admin Dose 10 MLS/HR; Start 08/08/18 at 04:30 Sodium Chloride 1,000 ml @ 100 mls/hr Q10H IV Last administered on 08/09/18at 03:00; Admin Dose 100 MLS/HR; Start 08/08/18 at 07:00 Carvedilol (Coreg) 6.25 mg BID PO ; Start 08/11/18 at 21:00 Sodium Chloride 1,000 ml @ 100 mls/hr Q10H IV Last administered on 08/09/18at 09:35; Admin Dose 100 MLS/HR; Start 08/08/18 at 12:00 Lorazepam (Ativan) 1 mg Q8H PRN IV AGITATION/ANXIETY Last administered on 08/09/18at 10:20; Admin Dose 1 MG; Start 08/08/18 at 12:00 EDDIE CARREON NP August 09, 2018 12:55
--- NOTE | 2018-08-09 15:48 | HPN ---
Date/Time of Note Date/Time of Note DATE: 08/09/18 TIME: 15:48 Interval H&P Admission Note Pt. seen H&P reviewed: No system changes BOO DAMON August 09, 2018 15:48
--- NOTE | 2018-08-09 15:48 | PREAC ---
Date/Time of Note Date/Time of Note DATE: 08/09/18 TIME: 15:47 Anesthesia Eval and Record Evaluation Time Pre-Procedure Interview DATE: 08/09/18 TIME: 15:47 Age 63 Sex male NPO: 8 hrs Preoperative diagnosis melena Planned procedure egd Past Medical History Past Medical History: Includes Cardio: HTN, Dyslipidemia Pulm: COPD Surgery & Anesthesia Issues No known issue Meds Anticoagulation: No Beta Richard within 24 hr: No Reason Beta Richard not given: Pt. not on B-Richard Reported Medications Sertraline Hcl* (Zoloft*) 50 Mg Tablet, 50 MG PO QHS, #30 TAB 08/04/18 Lisinopril* (Lisinopril*) 40 Mg Tablet, 40 MG PO DAILY, #30 TAB 02/17/18 Amlodipine Besylate* (Amlodipine Besylate*) 10 Mg Tablet, 10 MG PO DAILY, #30 TAB 02/17/18 Carvedilol* (Carvedilol*) 25 Mg Tablet, 25 MG PO BID, #60 TAB 02/17/18 Atorvastatin* (Atorvastatin*) 40 Mg Tablet, 40 MG PO QHS, #30 TAB 02/17/18 Chlorthalidone* (Chlorthalidone*) 25 Mg Tablet, 25 MG PO DAILY, TAB 02/17/18 Current Medications IV Flush (NS 3 ml) 3 ml PER PROTOCOL IV ; Start 08/04/18 at 19:00 Ondansetron HCl (Zofran Inj) 4 mg Q6H PRN IV NAUSEA/VOMITING Last administered on 08/08/18at 05:10; Admin Dose 4 MG; Start 08/04/18 at 19:00 Acetaminophen (Tylenol Tab) 650 mg Q6H PRN PO .PAIN 1-3 OR TEMP; Start 08/04/18 at 19:00 Docusate Sodium (Colace) 100 mg Q12H PRN PO .CONSTIPATION Last administered on 08/07/18at 21:38; Admin Dose 100 MG; Start 08/04/18 at 19:00 Zolpidem Tartrate (Ambien) 5 mg QHS PRN PO .INSOMNIA Last administered on 08/09/18at 00:37; Admin Dose 5 MG; Start 08/04/18 at 19:00 Atorvastatin Calcium (Lipitor) 40 mg QHS PO Last administered on 08/08/18at 22:26; Admin Dose 40 MG; Start 08/04/18 at 21:00 Sertraline HCl (Zoloft) 50 mg QHS PO Last administered on 08/08/18 22:26; Admin Dose 50 MG; Start 08/04/18 at 21:00 Albuterol/ Ipratropium (Duoneb) 3 ml Q4H RESP THERAPY PRN HHN SHORTNESS OF BREATH; Start 08/05/18 at 02:30 Morphine Sulfate (morphine) 4 mg Q4H PRN IV .SEVERE PAIN 7-10 Last administered on 08/09/18 11:40; Admin Dose 4 MG; Start 08/05/18 at 08:30 Nicotine (Nicoderm 14 Mg/ 24hr) 1 patch DAILY TRANSDERM Last administered on 08/09/18 09:35; Admin Dose 1 PATCH; Start 08/06/18 at 09:00 Acetaminophen/ Hydrocodone Bitart ([place] (10/325)) 1 tab Q3H PRN PO MODERATE PAIN LEVEL 4-6 Last administered on 08/07/18 12:21; Admin Dose 1 TAB; Start 08/05/18 at 20:00 Vancomycin HCl (Vanco Iv Per Pharmacy) VANCOMYCIN PER PHARMACY PER PROTOCOL XX ; Start 08/08/18 at 04:00 Vancomycin HCl 250 ml @ 125 mls/hr Q12H IVPB Last administered on 08/09/18 04:47; Admin Dose 125 MLS/HR; Start 08/08/18 at 17:00 Pantoprazole 80 mg/Sodium Chloride 100 ml @ 10 mls/hr Q10H IV Last administered on 08/09/18 12:08; Admin Dose 10 MLS/HR; Start 08/08/18 at 04:30 Sodium Chloride 1,000 ml @ 100 mls/hr Q10H IV Last administered on 08/09/18 03:00; Admin Dose 100 MLS/HR; Start 08/08/18 at 07:00 Carvedilol (Coreg) 6.25 mg BID PO ; Start 08/11/18 at 21:00 Sodium Chloride 1,000 ml @ 100 mls/hr Q10H IV Last administered on 08/09/18 09:35; Admin Dose 100 MLS/HR; Start 08/08/18 at 12:00 Lorazepam (Ativan) 1 mg Q8H PRN IV AGITATION/ANXIETY Last administered on 08/09/18at 10:20; Admin Dose 1 MG; Start 08/08/18 at 12:00 Miscellaneous Information (*Rx Drug Level Order Reminder*) VANCO TROUGH ON @ 600 1600 ONCE XX ; Start 08/09/18 at 16:00; Stop 08/09/18 at 16:01 Meds reviewed: Yes Allergies Coded Allergies: Sulfa (Sulfonamide Antibiotics) (Unverified Allergy, Mild, 08/04/18) Penicillins (Verified Allergy, Unknown, 08/04/18) Allergies Reviewed: Yes Labs/Studies Labs Reviewed: Reviewed by anesthesiologist Result Diagram: 08/09/18 0540 08/09/18 0540 Laboratory Tests 08/09/18 05:40 test: N/A Pre-procedure Exam Last vitals Vital Signs Date Temp Pulse Resp B/P (MAP) Pulse Ox O2 O2 Flow FiO2 Time Delivery Rate 08/09/18 95 12:47 08/09/18 98.2 18 139/81 98 Room Air 11:43 (100) 08/08/18 2.0 11:47 Airway: Adequate mouth opening, Adequate thyromental dist Mallampati: Mallampati II Teeth: Normal Lung: Normal Heart: Normal ASA Physical Status ASA physical status: 3 Emergency: None Planned Anesthetic General/MAC: MAC Planned Pain Management Parenteral pain med Pre-operative Attestations Prior to commencing anesthesia and surgery, the patient was re-evaluated, there was verification of: *The patient's identity *The results of appropriate recent lab work and preoperative vital signs *The above evaluation not changing prior to induction *Anesthetic plan, risk benefits, alternative and complications discussed with patient/family; questions answered; patient/family understands, accepts and wishes to proceed. Darren Bowen M.D. August 09, 2018 15:48
[2018-08-09] MEDS ORDERED: PROPOFOL 20 ML ONE ×2 (15:49)
[2018-08-09] MEDS ORDERED: LIDOCAINE 100 MG SYRINGE ONE (15:49)
[2018-08-09] MEDS ORDERED: FENTAnyl 50 MCG/ML VIAL ONE (15:50)
[2018-08-09] MEDS: HYDROCODONE/APAP (10/325) TAB PO PRN ×2 (18:44→22:28)
--- NOTE | 2018-08-09 20:54 | PN ---
Date/Time of Note Date/Time of Note DATE: 08/09/18 TIME: 20:52 Subjective Patient awaiting EGD today. No change in shoulder symptoms, no drainage, no issues, baseline pain. Not wearing his sling. Objective Vitals Vital Signs Date Temp Pulse Resp B/P (MAP) Pulse Ox O2 O2 Flow FiO2 Time Delivery Rate 08/09/18 97.7 98 20 143/72 98 19:51 (95) 08/09/18 Room Air 17:40 08/09/18 3.0 16:17 Intake and Output 08/08/18 08/08/18 08/09/18 1515:00 23:00 07:00 IntakeIntake Total 700 ml BalanceBalance 700 ml Incision c/d/i - zero output. Skin healing nicely. No fluctuance or erythema. ROM of shoulder appropriate. NVI distally. Results Result Diagram: 08/09/18 0540 08/09/18 0540 Medications Medications Current Medications IV Flush (NS 3 ml) 3 ml PER PROTOCOL IV ; Start 08/04/18 at 19:00 Ondansetron HCl (Zofran Inj) 4 mg Q6H PRN IV NAUSEA/VOMITING Last administered on 08/08/18at 05:10; Admin Dose 4 MG; Start 08/04/18 at 19:00 Acetaminophen (Tylenol Tab) 650 mg Q6H PRN PO .PAIN 1-3 OR TEMP; Start 08/04/18 at 19:00 Docusate Sodium (Colace) 100 mg Q12H PRN PO .CONSTIPATION Last administered on 08/07/18at 21:38; Admin Dose 100 MG; Start 08/04/18 at 19:00 Zolpidem Tartrate (Ambien) 5 mg QHS PRN PO .INSOMNIA Last administered on 08/09/18at 00:37; Admin Dose 5 MG; Start 08/04/18 at 19:00 Atorvastatin Calcium (Lipitor) 40 mg QHS PO Last administered on 08/08/18 22:26; Admin Dose 40 MG; Start 08/04/18 at 21:00 Sertraline HCl (Zoloft) 50 mg QHS PO Last administered on 08/08/18 22:26; Admin Dose 50 MG; Start 08/04/18 at 21:00 Albuterol/ Ipratropium (Duoneb) 3 ml Q4H RESP THERAPY PRN HHN SHORTNESS OF BREATH; Start 08/05/18 at 02:30 Morphine Sulfate (morphine) 4 mg Q4H PRN IV .SEVERE PAIN 7-10 Last administered on 08/09/18 17:08; Admin Dose 4 MG; Start 08/05/18 at 08:30 Nicotine (Nicoderm 14 Mg/ 24hr) 1 patch DAILY TRANSDERM Last administered on 08/09/18 09:35; Admin Dose 1 PATCH; Start 08/06/18 at 09:00 Acetaminophen/ Hydrocodone Bitart ([place] ()) 1 tab Q3H PRN PO MODERATE PAIN LEVEL 4-6 Last administered on 08/09/18 18:44; Admin Dose 1 TAB; Start 08/05/18 at 20:00 Vancomycin HCl (Vanco Iv Per Pharmacy) VANCOMYCIN PER PHARMACY PER PROTOCOL XX ; Start 08/08/18 at 04:00 Vancomycin HCl 250 ml @ 125 mls/hr Q12H IVPB Last administered on 08/09/18 17:31; Admin Dose 125 MLS/HR; Start 08/08/18 at 17:00 Pantoprazole 80 mg/Sodium Chloride 100 ml @ 10 mls/hr Q10H IV Last administered on 08/09/18 12:08; Admin Dose 10 MLS/HR; Start 08/08/18 at 04:30 Sodium Chloride 1,000 ml @ 100 mls/hr Q10H IV Last administered on 08/09/18 03:00; Admin Dose 100 MLS/HR; Start 08/08/18 at 07:00 Carvedilol (Coreg) 6.25 mg BID PO ; Start 08/11/18 at 21:00 Sodium Chloride 1,000 ml @ 100 mls/hr Q10H IV Last administered on 08/09/18 17:32; Admin Dose 100 MLS/HR; Start 08/08/18 at 12:00 Lorazepam (Ativan) 1 mg Q8H PRN IV AGITATION/ANXIETY Last administered on 08/09/18 10:20; Admin Dose 1 MG; Start 08/08/18 at 12:00 VTE Prophylaxis Risk score (from Nsg)>0 risk: 8 SCD applied (from Nsg): Yes SCD contraindication: low risk/ambulating Pharmacological prophylaxis: NA/contraindicated Pharm Contraindication: low risk/ambulating Lines/Catheters IV Catheter Type: Peripheral IV Arvizu in Place: No Assessment/Plan Hospital Course status post removal of cement spacer and placement of Reverse shoulder arthroplasty. Assessment/Plan EGD today, awaiting ID consult for antibiotics. SARANYA JONES MD August 09, 2018 20:54
[2018-08-09] MEDS: ATORVASTATIN 40 MG TAB PO SCH (21:33)
[2018-08-09] MEDS: SERTRALINE 50 MG TAB PO SCH (21:33)
[2018-08-10] VITALS (8 sets, daily range): BP systolic 121–179; BP diastolic 71–89; PULSE 80–93; RESP 18–19
[2018-08-10] MEDS: morphine 2 MG INJ IV PRN ×5 (01:13→18:27)
[2018-08-10] MEDS: HYDROCODONE/APAP (10/325) TAB PO PRN ×6 (01:55→22:37)
[2018-08-10] MEDS: PANTOPRAZOLE IV 80 MG in SOD CHLORIDE 0.9% 100 ML IV SCH ×3 (01:56→16:30)
[2018-08-10] MEDS: VANCOMYCIN 1 GM 250 ML IVPB SCH ×2 (06:01→21:29)
[2018-08-10] MEDS: LORAZEPAM 2 MG INJ IV PRN (07:58)
[2018-08-10] MEDS: SOD CHLORIDE 0.9% 1,000 ML IV SCH ×3 (09:00→13:13)
[2018-08-10] MEDS: NICOTINE (14 MG/24 HR) PATCH TRANSDERM SCH (09:26)
--- NOTE | 2018-08-10 12:24 | CONS ---
Assessment/Plan Assessment/Plan Hospital Course (Demo Recall) SUBJECTIVE: Denies any bleeding at this time. OBJECTIVE: Physical Exam General: Adequately build 63 year-old male lying in bed in no apparent distress. HEENT: Normocephalic, atraumatic. Eyes: Anicteric sclerae, conjunctivae clear. ENT: Nasal septum midline, oral mucosa moist. Neck supple, no JVD noticed. Respiratory: Bilaterally diminished breath sounds. No use of accessory muscles of respiration. No adventitious breath sounds. Cardiovascular: S1, S2 heard. Regular rate and rhythm. Abdomen: Soft, nontender, and nondistended. Bowel sounds positive in all 4 quadrants. Genitourinary: Deferred. Extremities: No cyanosis, no clubbing, no edema. Peripheral pulses palpable. Right shoulder joint dressing. Neurologic: Cranial nerves II through XII grossly intact. The patient is awake, alert, and oriented. Skin: Multiple areas of bruising on bilateral upper extremities. Labs & Vitals per chart ASSESSMENT & PLAN 63-year-old male with comorbidities including attention, COPD, dyslipidemia, depression, and right shoulder surgery with subsequent infection who was brought in for elective right shoulder surgical intervention. The patient underwent a removal of explant of hemiarthroplasty cement spacer, reverse total shoulder arthroplasty, and application of wound VAC on 08/04/2018. Hospitalist was consulted for medical management. On 08/08/2018, the patient had an acute episode of coffee-ground emesis with associated anemia. 1. Right shoulder joint infection. -Status post removal explant of hemiarthroplasty cement spacer, reverse total shoulder arthroplasty, and application of wound VAC on 08/04/2018. -Continue antimicrobials as per sensitivities. -Continue pain control. -Physical therapy as per orthopedic surgery. -Anticoagulation on hold because of gastrointestinal bleeding. 2. Acute gastrointestinal bleeding. -Monitor H&H closely. -Transfuse blood products as indicated. -S/P esophagogastroduodenoscopy on 08/09/2018 that showed severe PUD with no active bleeding. Continue PPI and Carafate. 3. Anemia of acute blood loss. -Status post transfusion of 3 units of PRBC. -Monitor H&H closely. 4. Depression. -Continue antidepressants. 5. Dyslipidemia. -Continue statins. 6. Nicotine use. -Continue nicotine patch. 7. COPD. -Stable. -No evidence of any exacerbation. 8. Hypertension. -Continue antihypertensives. 9. Fluids, electrolytes, and nutrition. -Soft diet. 10. DVT prophylaxis -Bilateral SCDs. 11. Plan. -Continue PPI and Carafate. -Receiving 1 unit of PRBC now. -Await improvement in H&H. -Meanwhile obtain ID consult for antimicrobial management. Thank you for the consult. The patient was seen in collaboration with Dr. Henley. Consultation Date/Type/Reason Admit Date/Time August 05, 2018 at 13:00 Initial Consult Date 08/08/18 Type of Consult Medical Reason for Consultation Medical management. Requesting Provider: SARANYA JONES MD Date/Time of Note DATE: 08/10/18 TIME: 12:19 Exam/Review of Systems Exam Vitals Vital Signs Date Temp Pulse Resp B/P (MAP) Pulse Ox O2 O2 Flow FiO2 Time Delivery Rate 08/10/18 97.4 88 18 143/81 96 Room Air 07:41 (101) 08/10/18 2.0 28 03:23 Intake and Output 08/09/18 08/09/18 08/10/18 1515:00 23:00 07:00 IntakeIntake Total 480 ml BalanceBalance 480 ml Results Result Diagram: 08/10/18 0549 08/10/18 0549 Results 24hrs Laboratory Tests Test 08/09/18 17:58 08/10/18 05:49 Vancomycin Level Trough 18.0 White Blood Count 7.5 # Red Blood Count 2.40 L Hemoglobin 6.9 *L Hematocrit 20.9 L Mean Corpuscular Volume 87.1 Mean Corpuscular Hemoglobin 28.8 L Mean Corpuscular Hemoglobin Concent 33.0 Red Cell Distribution Width 15.2 H Platelet Count 214 Mean Platelet Volume 9.8 Immature Granulocytes % 0.500 H Neutrophils % 67.2 Lymphocytes % 15.9 Monocytes % 11.2 H Eosinophils % 4.5 Basophils % 0.7 Nucleated Red Blood Cells % 0.0 Immature Granulocytes # 0.040 H Neutrophils # 5.0 Lymphocytes # 1.2 Monocytes # 0.8 Eosinophils # 0.3 Basophils # 0.1 Nucleated Red Blood Cells # 0.0 Sodium Level 137 Potassium Level 3.7 Chloride Level 103 Carbon Dioxide Level 28 Anion Gap 6 Blood Urea Nitrogen 18 # Creatinine 0.90 Est Glomerular Filtrat Rate mL/min > 60 Glucose Level 111 Calcium Level 8.2 L Phosphorus Level 4.0 Magnesium Level 1.9 Medications Medication Current Medications IV Flush (NS 3 ml) 3 ml PER PROTOCOL IV ; Start 08/04/18 at 19:00 Ondansetron HCl (Zofran Inj) 4 mg Q6H PRN IV NAUSEA/VOMITING Last administered on 08/08/18 05:10; Admin Dose 4 MG; Start 08/04/18 at 19:00 Acetaminophen (Tylenol Tab) 650 mg Q6H PRN PO .PAIN 1-3 OR TEMP; Start 08/04/18 at 19:00 Docusate Sodium (Colace) 100 mg Q12H PRN PO .CONSTIPATION Last administered on 08/07/18 21:38; Admin Dose 100 MG; Start 08/04/18 at 19:00 Zolpidem Tartrate (Ambien) 5 mg QHS PRN PO .INSOMNIA Last administered on 08/09/18 00:37; Admin Dose 5 MG; Start 08/04/18 at 19:00 Atorvastatin Calcium (Lipitor) 40 mg QHS PO Last administered on 08/09/18 21:33; Admin Dose 40 MG; Start 08/04/18 at 21:00 Sertraline HCl (Zoloft) 50 mg QHS PO Last administered on 08/09/18 21:33; Admin Dose 50 MG; Start 08/04/18 at 21:00 Albuterol/ Ipratropium (Duoneb) 3 ml Q4H RESP THERAPY PRN HHN SHORTNESS OF BREATH; Start 08/05/18 at 02:30 Morphine Sulfate (morphine) 4 mg Q4H PRN IV .SEVERE PAIN 7-10 Last administered on 08/10/18 09:27; Admin Dose 4 MG; Start 08/05/18 at 08:30 Nicotine (Nicoderm 14 Mg/ 24hr) 1 patch DAILY TRANSDERM Last administered on 08/10/18 09:26; Admin Dose 1 PATCH; Start 08/06/18 at 09:00 Acetaminophen/ Hydrocodone Bitart ([place] (10/325)) 1 tab Q3H PRN PO MODERATE PAIN LEVEL 4-6 Last administered on 08/10/18 12:03; Admin Dose 1 TAB; Start 08/05/18 at 20:00 Vancomycin HCl (Vanco Iv Per Pharmacy) VANCOMYCIN PER PHARMACY PER PROTOCOL XX ; Start 08/08/18 at 04:00 Vancomycin HCl 250 ml @ 125 mls/hr Q12H IVPB Last administered on 08/10/18 06:01; Admin Dose 125 MLS/HR; Start 08/08/18 at 17:00 Pantoprazole 80 mg/Sodium Chloride 100 ml @ 10 mls/hr Q10H IV Last administered on 08/10/18 09:22; Admin Dose 10 MLS/HR; Start 08/08/18 at 04:30 Sodium Chloride 1,000 ml @ 100 mls/hr Q10H IV Last administered on 08/09/18at 03:00; Admin Dose 100 MLS/HR; Start 08/08/18 at 07:00 Carvedilol (Coreg) 6.25 mg BID PO ; Start 08/11/18 at 21:00 Sodium Chloride 1,000 ml @ 100 mls/hr Q10H IV Last administered on 08/10/18 09:27; Admin Dose 100 MLS/HR; Start 08/08/18 at 12:00 Lorazepam (Ativan) 1 mg Q8H PRN IV AGITATION/ANXIETY Last administered on 08/10/18 07:58; Admin Dose 1 MG; Start 08/08/18 at 12:00 EDDIE CARREON NP August 10, 2018 12:24
--- NOTE | 2018-08-10 13:16 | PN ---
Date/Time of Note Date/Time of Note DATE: 08/10/18 TIME: 13:13 Assessment/Plan VTE Prophylaxis Risk score (from Ns)>0 risk: 8 SCD applied (from Ns): No Lines/Catheters IV Catheter Type (from [facility]): Peripheral IV Urinary Cath still in place: No Assessment/Plan Hospital Course Duplicate Result Diagram: 08/10/18 0549 08/10/18 0549 Results 24hrs Laboratory Tests Test 08/09/18 17:58 08/10/18 05:49 Vancomycin Level Trough 18.0 White Blood Count 7.5 # Red Blood Count 2.40 L Hemoglobin 6.9 *L Hematocrit 20.9 L Mean Corpuscular Volume 87.1 Mean Corpuscular Hemoglobin 28.8 L Mean Corpuscular Hemoglobin Concent 33.0 Red Cell Distribution Width 15.2 H Platelet Count 214 Mean Platelet Volume 9.8 Immature Granulocytes % 0.500 H Neutrophils % 67.2 Lymphocytes % 15.9 Monocytes % 11.2 H Eosinophils % 4.5 Basophils % 0.7 Nucleated Red Blood Cells % 0.0 Immature Granulocytes # 0.040 H Neutrophils # 5.0 Lymphocytes # 1.2 Monocytes # 0.8 Eosinophils # 0.3 Basophils # 0.1 Nucleated Red Blood Cells # 0.0 Sodium Level 137 Potassium Level 3.7 Chloride Level 103 Carbon Dioxide Level 28 Anion Gap 6 Blood Urea Nitrogen 18 # Creatinine 0.90 Est Glomerular Filtrat Rate mL/min > 60 Glucose Level 111 Calcium Level 8.2 L Phosphorus Level 4.0 Magnesium Level 1.9 Exam/Review of Systems Exam Vitals Vital Signs Date Temp Pulse Resp B/P (MAP) Pulse Ox O2 O2 Flow FiO2 Time Delivery Rate 08/10/18 98.3 93 18 166/84 Room Air 12:28 (111) 08/10/18 96 07:41 08/10/18 2.0 28 03:23 Intake and Output 08/09/18 08/09/18 08/10/18 1414:59 22:59 06:59 IntakeIntake Total 480 ml BalanceBalance 480 ml Results Results 24hrs Laboratory Tests Test 08/09/18 17:58 08/10/18 05:49 Vancomycin Level Trough 18.0 White Blood Count 7.5 # Red Blood Count 2.40 L Hemoglobin 6.9 *L Hematocrit 20.9 L Mean Corpuscular Volume 87.1 Mean Corpuscular Hemoglobin 28.8 L Mean Corpuscular Hemoglobin Concent 33.0 Red Cell Distribution Width 15.2 H Platelet Count 214 Mean Platelet Volume 9.8 Immature Granulocytes % 0.500 H Neutrophils % 67.2 Lymphocytes % 15.9 Monocytes % 11.2 H Eosinophils % 4.5 Basophils % 0.7 Nucleated Red Blood Cells % 0.0 Immature Granulocytes # 0.040 H Neutrophils # 5.0 Lymphocytes # 1.2 Monocytes # 0.8 Eosinophils # 0.3 Basophils # 0.1 Nucleated Red Blood Cells # 0.0 Sodium Level 137 Potassium Level 3.7 Chloride Level 103 Carbon Dioxide Level 28 Anion Gap 6 Blood Urea Nitrogen 18 # Creatinine 0.90 Est Glomerular Filtrat Rate mL/min > 60 Glucose Level 111 Calcium Level 8.2 L Phosphorus Level 4.0 Magnesium Level 1.9 Medications Medication Current Medications IV Flush (NS 3 ml) 3 ml PER PROTOCOL IV ; Start 08/04/18 at 19:00 Ondansetron HCl (Zofran Inj) 4 mg Q6H PRN IV NAUSEA/VOMITING Last administered on 08/08/18 05:10; Admin Dose 4 MG; Start 08/04/18 at 19:00 Acetaminophen (Tylenol Tab) 650 mg Q6H PRN PO .PAIN 1-3 OR TEMP; Start 08/04/18 at 19:00 Docusate Sodium (Colace) 100 mg Q12H PRN PO .CONSTIPATION Last administered on 08/07/18at 21:38; Admin Dose 100 MG; Start 08/04/18 at 19:00 Zolpidem Tartrate (Ambien) 5 mg QHS PRN PO .INSOMNIA Last administered on 08/09/18 00:37; Admin Dose 5 MG; Start 08/04/18 at 19:00 Atorvastatin Calcium (Lipitor) 40 mg QHS PO Last administered on 08/09/18 21:3 3; Admin Dose 40 MG; Start 08/04/18 at 21:00 Sertraline HCl (Zoloft) 50 mg QHS PO Last administered on 08/09/18 21:33; Admin Dose 50 MG; Start 08/04/18 at 21:00 Albuterol/ Ipratropium (Duoneb) 3 ml Q4H RESP THERAPY PRN HHN SHORTNESS OF BREATH; Start 08/05/18 at 02:30 Morphine Sulfate (morphine) 4 mg Q4H PRN IV .SEVERE PAIN 7-10 Last administered on 08/10/18 09:27; Admin Dose 4 MG; Start 08/05/18 at 08:30 Nicotine (Nicoderm 14 Mg/ 24hr) 1 patch DAILY TRANSDERM Last administered on 08/10/18 09:26; Admin Dose 1 PATCH; Start 08/06/18 at 09:00 Acetaminophen/ Hydrocodone Bitart ([place] (10/325)) 1 tab Q3H PRN PO MODERATE PAIN LEVEL 4-6 Last administered on 08/10/18 12:03; Admin Dose 1 TAB; Start 08/05/18 at 20:00 Vancomycin HCl (Vanco Iv Per Pharmacy) VANCOMYCIN PER PHARMACY PER PROTOCOL XX ; Start 08/08/18 at 04:00 Vancomycin HCl 250 ml @ 125 mls/hr Q12H IVPB Last administered on 08/10/18 06:01; Admin Dose 125 MLS/HR; Start 08/08/18 at 17:00 Pantoprazole 80 mg/Sodium Chloride 100 ml @ 10 mls/hr Q10H IV Last administered on 08/10/18 09:22; Admin Dose 10 MLS/HR; Start 08/08/18 at 04:30 Sodium Chloride 1,000 ml @ 100 mls/hr Q10H IV Last administered on 08/09/18 03:00; Admin Dose 100 MLS/HR; Start 08/08/18 at 07:00 Carvedilol (Coreg) 6.25 mg BID PO ; Start 08/11/18 at 21:00 Sodium Chloride 1,000 ml @ 100 mls/hr Q10H IV Last administered on 08/10/18 09:27; Admin Dose 100 MLS/HR; Start 08/08/18 at 12:00 Lorazepam (Ativan) 1 mg Q8H PRN IV AGITATION/ANXIETY Last administered on 08/10/18 07:58; Admin Dose 1 MG; Start 08/08/18 at 12:00 JUDITH DYER August 10, 2018 13:16
--- NOTE | 2018-08-10 13:48 | PN ---
Date/Time of Note Date/Time of Note DATE: 08/10/18 TIME: 13:34 Assessment/Plan VTE Prophylaxis Risk score (from Ns)>0 risk: 8 SCD applied (from Ns): No SCD contraindicated: low risk/ambulating Pharmacological prophylaxis: NA/contraindicated Pharm contraindication: bleeding Lines/Catheters IV [facility] Type (from [facility]): Peripheral IV Urinary Cath still in place: No Assessment/Plan Hospital Course Assessment/Plan Acute upper GI bleeding EGD 08/09/2018 Severe PUD Multiple ulcersnone with active bleeding now. Duodenal ulcers and erosions, no bleeding Anemia secondary to above Hematemesis and melena Septic right shoulder s/p reverse arthroplasty HTN Hx of aortic dissection s/p repair Plan: Repeat EGD in 4 to 6 weeks to verify gastric ulcer healing Continue PPI gtt over night- given decrease in HGB- will likely change to BID tomorrow Carafate 4 times daily Avoid NSAIDS. Patient seen in collaboration with Dr. Nunes. Subjective: Course reviewed with nursing staff Patient interviewed and examined All labs, imaging and other results reviewed The patient states he is feeling better, currently receiving a blood transfusion Discussed results of EGD, pt verbalized understanding. Currently tolerating diet well PHYSICAL EXAMINATION: GENERAL: Well developed, well nourished, alert & oriented x 3, in no acute distress SKIN: No lesions HEAD: Normocephalic, atraumatic, no tenderness. EYES: Pupils equal reactive to light, no discharge. EARS/NOSE AND THROAT: Ears normal, nose normal. NECK: Supple, no masses CHEST: Inspection within normal limits. CARDIOVASCULAR: Heart: Regular rate and rhythm RESPIRATORY: Lungs clear to auscultation GASTROINTESTINAL AND LIVER: Abdomen: Soft, mild epigastric tenderness, no hernias, no masses, no organomegaly, no ascites, no guarding, no rebound tenderness, normoactive bowel sounds. Rectal: Deferred. EXTREMITIES: No cyanosis, clubbing or edema. Result Diagram: 08/10/18 0549 08/10/18 0549 Results 24hrs Laboratory Tests Test 08/09/18 17:58 08/10/18 05:49 Vancomycin Level Trough 18.0 White Blood Count 7.5 # Red Blood Count 2.40 L Hemoglobin 6.9 *L Hematocrit 20.9 L Mean Corpuscular Volume 87.1 Mean Corpuscular Hemoglobin 28.8 L Mean Corpuscular Hemoglobin Concent 33.0 Red Cell Distribution Width 15.2 H Platelet Count 214 Mean Platelet Volume 9.8 Immature Granulocytes % 0.500 H Neutrophils % 67.2 Lymphocytes % 15.9 Monocytes % 11.2 H Eosinophils % 4.5 Basophils % 0.7 Nucleated Red Blood Cells % 0.0 Immature Granulocytes # 0.040 H Neutrophils # 5.0 Lymphocytes # 1.2 Monocytes # 0.8 Eosinophils # 0.3 Basophils # 0.1 Nucleated Red Blood Cells # 0.0 Sodium Level 137 Potassium Level 3.7 Chloride Level 103 Carbon Dioxide Level 28 Anion Gap 6 Blood Urea Nitrogen 18 # Creatinine 0.90 Est Glomerular Filtrat Rate mL/min > 60 Glucose Level 111 Calcium Level 8.2 L Phosphorus Level 4.0 Magnesium Level 1.9 Exam/Review of Systems Exam Vitals Vital Signs Date Temp Pulse Resp B/P (MAP) Pulse Ox O2 O2 Flow FiO2 Time Delivery Rate 08/10/18 98.3 93 18 166/84 Room Air 12:28 (111) 08/10/18 96 07:41 08/10/18 2.0 28 03:23 Intake and Output 08/09/18 08/09/18 08/10/18 1414:59 22:59 06:59 IntakeIntake Total 480 ml BalanceBalance 480 ml Results Results 24hrs Laboratory Tests Test 08/09/18 17:58 08/10/18 05:49 Vancomycin Level Trough 18.0 White Blood Count 7.5 # Red Blood Count 2.40 L Hemoglobin 6.9 *L Hematocrit 20.9 L Mean Corpuscular Volume 87.1 Mean Corpuscular Hemoglobin 28.8 L Mean Corpuscular Hemoglobin Concent 33.0 Red Cell Distribution Width 15.2 H Platelet Count 214 Mean Platelet Volume 9.8 Immature Granulocytes % 0.500 H Neutrophils % 67.2 Lymphocytes % 15.9 Monocytes % 11.2 H Eosinophils % 4.5 Basophils % 0.7 Nucleated Red Blood Cells % 0.0 Immature Granulocytes # 0.040 H Neutrophils # 5.0 Lymphocytes # 1.2 Monocytes # 0.8 Eosinophils # 0.3 Basophils # 0.1 Nucleated Red Blood Cells # 0.0 Sodium Level 137 Potassium Level 3.7 Chloride Level 103 Carbon Dioxide Level 28 Anion Gap 6 Blood Urea Nitrogen 18 # Creatinine 0.90 Est Glomerular Filtrat Rate mL/min > 60 Glucose Level 111 Calcium Level 8.2 L Phosphorus Level 4.0 Magnesium Level 1.9 Medications Medication Current Medications IV Flush (NS 3 ml) 3 ml PER PROTOCOL IV ; Start 08/04/18 at 19:00 Ondansetron HCl (Zofran Inj) 4 mg Q6H PRN IV NAUSEA/VOMITING Last administered on 08/08/18 05:10; Admin Dose 4 MG; Start 08/04/18 at 19:00 Acetaminophen (Tylenol Tab) 650 mg Q6H PRN PO .PAIN 1-3 OR TEMP; Start 08/04/18 at 19:00 Docusate Sodium (Colace) 100 mg Q12H PRN PO .CONSTIPATION Last administered on 08/07/18 21:38; Admin Dose 100 MG; Start 08/04/18 at 19:00 Zolpidem Tartrate (Ambien) 5 mg QHS PRN PO .INSOMNIA Last administered on 08/09/18 00:37; Admin Dose 5 MG; Start 08/04/18 at 19:00 Atorvastatin Calcium (Lipitor) 40 mg QHS PO Last administered on 08/09/18 21: 33; Admin Dose 40 MG; Start 08/04/18 at 21:00 Sertraline HCl (Zoloft) 50 mg QHS PO Last administered on 08/09/18 21:33; Admin Dose 50 MG; Start 08/04/18 at 21:00 Albuterol/ Ipratropium (Duoneb) 3 ml Q4H RESP THERAPY PRN HHN SHORTNESS OF BREATH; Start 08/05/18 at 02:30 Morphine Sulfate (morphine) 4 mg Q4H PRN IV .SEVERE PAIN 7-10 Last administered on 08/10/18 09:27; Admin Dose 4 MG; Start 08/05/18 at 08:30 Nicotine (Nicoderm 14 Mg/ 24hr) 1 patch DAILY TRANSDERM Last administered on 08/10/18 09:26; Admin Dose 1 PATCH; Start 08/06/18 at 09:00 Acetaminophen/ Hydrocodone Bitart ([place] (10/325)) 1 tab Q3H PRN PO MODERATE PAIN LEVEL 4-6 Last administered on 08/10/18 12:03; Admin Dose 1 TAB; Start 08/05/18 at 20:00 Vancomycin HCl (Vanco Iv Per Pharmacy) VANCOMYCIN PER PHARMACY PER PROTOCOL XX ; Start 08/08/18 at 04:00 Vancomycin HCl 250 ml @ 125 mls/hr Q12H IVPB Last administered on 08/10/18 06:01; Admin Dose 125 MLS/HR; Start 08/08/18 at 17:00 Pantoprazole 80 mg/Sodium Chloride 100 ml @ 10 mls/hr Q10H IV Last administered on 08/10/18at 09:22; Admin Dose 10 MLS/HR; Start 08/08/18 at 04:30 Sodium Chloride 1,000 ml @ 100 mls/hr Q10H IV Last administered on 08/09/18at 03:00; Admin Dose 100 MLS/HR; Start 08/08/18 at 07:00 Carvedilol (Coreg) 6.25 mg BID PO ; Start 08/11/18 at 21:00 Sodium Chloride 1,000 ml @ 100 mls/hr Q10H IV Last administered on 08/10/18 09:27; Admin Dose 100 MLS/HR; Start 08/08/18 at 12:00 Lorazepam (Ativan) 1 mg Q8H PRN IV AGITATION/ANXIETY Last administered on 08/10/18 07:58; Admin Dose 1 MG; Start 08/08/18 at 12:00 JUDITH DYER August 10, 2018 13:44
--- NOTE | 2018-08-10 15:16 | CONS ---
DATE OF ADMISSION: 08/05/2018 DATE OF CONSULTATION: 08/10/2018 TYPE OF CONSULTATION: Infectious disease. REASON FOR CONSULTATION: Antibiotic management. HISTORY OF PRESENT ILLNESS: Al Garnett is a 63-year-old male who has numerous problems includin. Hypertension. 2. Emphysema. 3. Dyslipidemia. 4. Depression. 5. Right shoulder surgery and subsequent infection. The patient was admitted to the hospital status post reverse of total shoulder arthroplasty. On admi ssion, the patient's white count was 14.9, H and H 12.3 and 38.2, platelet count 272,000. BUN and cr eatinine 22/1.08. HOSPITAL COURSE: The patient had removal of right shoulder cement spacer and placement of reverse to luis miguel shoulder arthroplasty by Dr. 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 The patient was seen by Dr. Sanchez, right shoulder reverse arthroplasty on 08/07/2018, postop day #4 has grown gram-positive coccus in the wound culture. Has a history of aortic dissection and repair as well as hypertension. White count of 12.9 on 08/08/2018. He had onset of coffee-ground emesis about 200 mL. He had another 500 mL of coffee-ground emesis in the telemetry unit. Blood pressure responded quic kly to IV fluids. According to Dr. Jones, the shoulder was stable. Routine culture swabs from surger y grew gram-positive cocci. Right shoulder dressing is clear. White count was 12.5. The patient is currently on vancomycin. Right shoulder grew out coagulase negative staph, which could be skin cont aminant. Abdominal x-ray was negative. Chest x-ray showed dilated thoracic aorta, mild left lower l obe linear atelectasis, postsurgical changes of the right shoulder. The patient currently is status post removal explant of hemiarthroplasty cement spacer, reverse total shoulder arthroplasty and appli cation of wound VAC on 08/04/2018. Continue antibiotics, antimicrobials as per sensitivities. PHYSICAL EXAMINATION: GENERAL: Today, the patient is in no acute distress. VITAL SIGNS: Stable. He is afebrile. SKIN: Without generalized rash. He has multiple areas of bruising on bilateral upper extremities. HEENT: Within normal limits. NECK: Supple. LYMPH NODES: None palpable. CHEST: Decreased breath sounds at the bases. HEART: Without murmur or gallop. ABDOMEN: Soft, nontender without organosplenomegaly or masses. EXTREMITIES: Without cyanosis, clubbing or edema. Right shoulder has dressing intact. RECTAL AND GENITAL: Deferred. NEUROLOGIC: No focal neurological abnormality. IMPRESSION AND PLAN: The patient had 1 organism that grew out Staph epidermidis which may very well be contaminant; however in view of the fact that this is a failed shoulder surgery in the past, we mi t want to continue antibiotic therapy for at least 4 weeks in an attempt to make sure that the area itself was clean and noninfected when the new shoulder was placed. I will dictate my findings to [facility] hospitalist and to Dr. Jones. Dictated By: TIMO HERNANDEZ MD, JD/NTS Conf#: [id number] DID#: [id number] CC: SARANYA JONES MD;*EndCC*
--- NOTE | 2018-08-10 16:08 | PN ---
Date/Time of Note Date/Time of Note DATE: 08/10/18 TIME: 16:06 Subjective Patient doing much better after scope and some blood. Eating currently. Shoulder is feeling even better. Objective Vitals Vital Signs Date Temp Pulse Resp B/P (MAP) Pulse Ox O2 O2 Flow FiO2 Time Delivery Rate 08/10/18 98.3 93 18 166/84 Room Air 12:28 (111) 08/10/18 96 07:41 08/10/18 2.0 28 03:23 Intake and Output 08/09/18 08/09/18 08/10/18 1515:00 23:00 07:00 IntakeIntake Total 480 ml BalanceBalance 480 ml Incision is c/d/i. Dressing was totally dry, zero output. Motion of prothesis is very nice. No effusion or swelling. Skin looks good. NVI distally Results Result Diagram: 08/10/18 0549 08/10/18 0549 Medications Medications Current Medications IV Flush (NS 3 ml) 3 ml PER PROTOCOL IV ; Start 08/04/18 at 19:00 Ondansetron HCl (Zofran Inj) 4 mg Q6H PRN IV NAUSEA/VOMITING Last administered on 08/08/18at 05:10; Admin Dose 4 MG; Start 08/04/18 at 19:00 Acetaminophen (Tylenol Tab) 650 mg Q6H PRN PO .PAIN 1-3 OR TEMP; Start 08/04/18 at 19:00 Docusate Sodium (Colace) 100 mg Q12H PRN PO .CONSTIPATION Last administered on 08/07/18 21:38; Admin Dose 100 MG; Start 08/04/18 at 19:00 Zolpidem Tartrate (Ambien) 5 mg QHS PRN PO .INSOMNIA Last administered on 08/09/18 00:37; Admin Dose 5 MG; Start 08/04/18 at 19:00 Atorvastatin Calcium (Lipitor) 40 mg QHS PO Last administered on 08/09/18 21:33; Admin Dose 40 MG; Start 08/04/18 at 21:00 Sertraline HCl (Zoloft) 50 mg QHS PO Last administered on 08/09/18 21:33; Admin Dose 50 MG; Start 08/04/18 at 21:00 Albuterol/ Ipratropium (Duoneb) 3 ml Q4H RESP THERAPY PRN HHN SHORTNESS OF BREATH; Start 08/05/18 at 02:30 Morphine Sulfate (morphine) 4 mg Q4H PRN IV .SEVERE PAIN 7-10 Last administered on 08/10/18at 13:39; Admin Dose 4 MG; Start 08/05/18 at 08:30 Nicotine (Nicoderm 14 Mg/ 24hr) 1 patch DAILY TRANSDERM Last administered on 08/10/18 09:26; Admin Dose 1 PATCH; Start 08/06/18 at 09:00 Acetaminophen/ Hydrocodone Bitart ([place] (10325)) 1 tab Q3H PRN PO MODERATE PAIN LEVEL 4-6 Last administered on 08/10/18at 15:24; Admin Dose 1 TAB; Start 08/05/18 at 20:00 Vancomycin HCl (Vanco Iv Per Pharmacy) VANCOMYCIN PER PHARMACY PER PROTOCOL XX ; Start 08/08/18 at 04:00 Vancomycin HCl 250 ml @ 125 mls/hr Q12H IVPB Last administered on 08/10/18at 06:01; Admin Dose 125 MLS/HR; Start 08/08/18 at 17:00 Pantoprazole 80 mg/Sodium Chloride 100 ml @ 10 mls/hr Q10H IV Last administered on 08/10/18at 09:22; Admin Dose 10 MLS/HR; Start 08/08/18 at 04:30 Carvedilol (Coreg) 6.25 mg BID PO ; Start 08/11/18 at 21:00 Lorazepam (Ativan) 1 mg Q8H PRN IV AGITATION/ANXIETY Last administered on 08/10/18at 07:58; Admin Dose 1 MG; Start 08/08/18 at 12:00 VTE Prophylaxis Risk score (from Nsg)>0 risk: 8 SCD applied (from Nsg): No SCD contraindication: low risk/ambulating Pharmacological prophylaxis: NA/contraindicated Pharm Contraindication: low risk/ambulating Lines/Catheters IV Catheter Type: Peripheral IV Arvizu in Place: No Assessment/Plan Hospital Course status post removal of cement spacer and placement of Reverse shoulder art hroplasty. Assessment/Plan Receiving blood currently. No recurrent emesis Shoulder - ID has been consulted regarding the positive culture from surgery. The patient has extensive history of infections. After two antiobiotic spacer changes in the past 18 months, his preoperative labs (ESR,CRP,CBC) were all normal, his preoperative right shoulder aspiration (Gram stain, Aerobic, Anaerobic) were all negative in the weeks prior to surgery. He has no signs of infection at the time of surgery and none currently. Antibiotic powder was placed in the surgical site as routine, as well. My index for infection is low, but given his history, it would be appropriate for him to take long-term antibiotic empirically either IV followed by PO or perhaps just PO. 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 I will await ID recommendations. SARANYA JONES MD August 10, 2018 16:08
[2018-08-10] MEDS: ATORVASTATIN 40 MG TAB PO SCH (21:29)
[2018-08-10] MEDS: SERTRALINE 50 MG TAB PO SCH (21:29)
[2018-08-10] MEDS: ZOLPIDEM 5 MG TAB PO PRN (22:37)
[2018-08-11] VITALS (7 sets, daily range): BP systolic 130–167; BP diastolic 63–90; PULSE 75–92; RESP 18–20
[2018-08-11] MEDS: PANTOPRAZOLE IV 80 MG in SOD CHLORIDE 0.9% 100 ML IV SCH (02:29)
[2018-08-11] MEDS: morphine 2 MG INJ IV PRN ×6 (02:29→23:30)
[2018-08-11] MEDS: HYDROCODONE/APAP (10/325) TAB PO PRN ×5 (04:48→21:25)
[2018-08-11] MEDS: VANCOMYCIN 1 GM 250 ML IVPB SCH ×2 (06:31→17:00)
[2018-08-11] MEDS: NICOTINE (14 MG/24 HR) PATCH TRANSDERM SCH (08:41)
--- NOTE | 2018-08-11 11:03 | CONS ---
Assessment/Plan Assessment/Plan Hospital Course (Demo Recall) SUBJECTIVE: Denies any bleeding at this time. As per the RN, the patient is asking for pain medication [id number]. OBJECTIVE: Physical Exam General: Adequately build 63 year-old male lying in bed in no apparent distress. HEENT: Normocephalic, atraumatic. Eyes: Anicteric sclerae, conjunctivae clear. ENT: Nasal septum midline, oral mucosa moist. Neck supple, no JVD noticed. Respiratory: Bilaterally diminished breath sounds. No use of accessory muscles of respiration. No adventitious breath sounds. Cardiovascular: S1, S2 heard. Regular rate and rhythm. Abdomen: Soft, nontender, and nondistended. Bowel sounds positive in all 4 quadrants. Genitourinary: Deferred. Extremities: No cyanosis, no clubbing, no edema. Peripheral pulses palpable. Right shoulder joint dressing. Neurologic: Cranial nerves II through XII grossly intact. The patient is awake, alert, and oriented. Skin: Multiple areas of bruising on bilateral upper extremities. Labs & Vitals per chart ASSESSMENT & PLAN 63-year-old male with comorbidities including attention, COPD, dyslipidemia, depression, and right shoulder surgery with subsequent infection who was brought in for elective right shoulder surgical intervention. The patient underwent a removal of explant of hemiarthroplasty cement spacer, reverse total shoulder arthroplasty, and application of wound VAC on 08/04/2018. Hospitalist was consulted for medical management. On 08/08/2018, the patient had an acute epis ode of coffee-ground emesis with associated anemia. 1. Right shoulder joint infection. -Status post removal explant of hemiarthroplasty cement spacer, reverse total shoulder arthroplasty, and application of wound VAC on 08/04/2018. -Continue antimicrobials as per sensitivities. -Continue pain control. -Physical therapy as per orthopedic surgery. -Anticoagulation on hold because of gastrointestinal bleeding. 2. Acute gastrointestinal bleeding. -Monitor H&H closely. -Transfuse blood products as indicated. -S/P esophagogastroduodenoscopy on 08/09/2018 that showed severe PUD with no active bleeding. Continue PPI and Carafate. 3. Anemia of acute blood loss. -Status post transfusion of 3 units of PRBC. -Monitor H&H closely. 4. Depression. -Continue antidepressants. 5. Dyslipidemia. -Continue statins. 6. Nicotine use. -Continue nicotine patch. 7. COPD. -Stable. -No evidence of any exacerbation. 8. Hypertension. -Continue antihypertensives. 9. Fluids, electrolytes, and nutrition. -Soft diet. 10. DVT prophylaxis -Bilateral SCDs. 11. Plan. -Continue PPI and Carafate. -Infectious diseases recommending long-term IV antibiotic therapy. -Await PICC line placement. -The patient is medically stable to be discharged as per the primary care physician. Thank you for the consult. The patient was seen in collaboration with Dr. Henley. Consultation Date/Type/Reason Admit Date/Time August 05, 2018 at 13:00 Initial Consult Date 08/08/18 Type of Consult Medical Reason for Consultation Medical management Requesting Provider: SARANYA JONES MD Date/Time of Note DATE: 08/11/18 TIME: 11:02 Exam/Review of Systems Exam Vitals Vital Signs Date Temp Pulse Resp B/P (MAP) Pulse Ox O2 O2 Flow FiO2 Time Delivery Rate 08/11/18 97.3 82 20 138/75 98 Room Air 07:10 (96) 08/10/18 2.0 28 03:23 Intake and Output 08/10/18 08/10/18 08/11/18 1515:00 23:00 07:00 IntakeIntake Total 250 ml 1190 ml 250 ml BalanceBalance 250 ml 1190 ml 250 ml Results Result Diagram: 08/11/18 0539 08/11/18 0539 Results 24hrs Laboratory Tests Test 08/10/18 16:12 08/11/18 05:39 Vancomycin Level Trough 11.6 White Blood Count 7.5 Red Blood Count 3.12 #L Hemoglobin 9.0 #L Hematocrit 27.5 #L Mean Corpuscular Volume 88.1 Mean Corpuscular Hemoglobin 28.8 L Mean Corpuscular Hemoglobin Concent 32.7 Red Cell Distribution Width 15.2 H Platelet Count 216 Mean Platelet Volume 9.6 Immature Granulocytes % 0.500 H Neutrophils % 64.3 Lymphocytes % 15.8 Monocytes % 12.6 H Eosinophils % 6.0 Basophils % 0.8 Nucleated Red Blood Cells % 0.0 Immature Granulocytes # 0.040 H Neutrophils # 4.8 Lymphocytes # 1.2 Monocytes # 0.9 Eosinophils # 0.5 Basophils # 0.1 Nucleated Red Blood Cells # 0.0 Sodium Level 139 Potassium Level 3.7 Chloride Level 104 Carbon Dioxide Level 29 Anion Gap 6 Blood Urea Nitrogen 10 Creatinine 0.76 Est Glomerular Filtrat Rate mL/min > 60 Glucose Level 124 Calcium Level 8.1 L Phosphorus Level 3.6 Magnesium Level 1.8 Medications Medication Current Medications IV Flush (NS 3 ml) 3 ml PER PROTOCOL IV ; Start 08/04/18 at 19:00 Ondansetron HCl (Zofran Inj) 4 mg Q6H PRN IV NAUSEA/VOMITING Last administered on 08/08/18 05:10; Admin Dose 4 MG; Start 08/04/18 at 19:00 Acetaminophen (Tylenol Tab) 650 mg Q6H PRN PO .PAIN 1-3 OR TEMP; Start 08/04/18 at 19:00 Docusate Sodium (Colace) 100 mg Q12H PRN PO .CONSTIPATION Last administered on 08/07/18 21:38; Admin Dose 100 MG; Start 08/04/18 at 19:00 Zolpidem Tartrate (Ambien) 5 mg QHS PRN PO .INSOMNIA Last administered on 08/10/18 22:37; Admin Dose 5 MG; Start 08/04/18 at 19:00 Atorvastatin Calcium (Lipitor) 40 mg QHS PO Last administered on 08/10/18 21:29; Admin Dose 40 MG; Start 08/04/18 at 21:00 Sertraline HCl (Zoloft) 50 mg QHS PO Last administered on 08/10/18 21:29; Admin Dose 50 MG; Start 08/04/18 at 21:00 Albuterol/ Ipratropium (Duoneb) 3 ml Q4H RESP THERAPY PRN HHN SHORTNESS OF BREATH; Start 08/05/18 at 02:30 Morphine Sulfate (morphine) 4 mg Q4H PRN IV .SEVERE PAIN 7-10 Last administered on 08/11/18 10:29; Admin Dose 4 MG; Start 08/05/18 at 08:30 Nicotine (Nicoderm 14 Mg/ 24hr) 1 patch DAILY TRANSDERM Last administered on 08/11/18 08:41; Admin Dose 1 PATCH; Start 08/06/18 at 09:00 Acetaminophen/ Hydrocodone Bitart ([place] (10/325)) 1 tab Q3H PRN PO MODERATE PAIN LEVEL 4-6 Last administered on 08/11/18 07:41; Admin Dose 1 TAB; Start 08/05/18 at 20:00 Vancomycin HCl (Vanco Iv Per Pharmacy) VANCOMYCIN PER PHARMACY PER PROTOCOL XX ; Start 08/08/18 at 04:00 Vancomycin HCl 250 ml @ 125 mls/hr Q12H IVPB Last administered on 08/11/18at 06:31; Admin Dose 125 MLS/HR; Start 08/08/18 at 17:00 Pantoprazole 80 mg/Sodium Chloride 100 ml @ 10 mls/hr Q10H IV Last administered on 08/11/18at 02:29; Admin Dose 10 MLS/HR; Start 08/08/18 at 04:30 Carvedilol (Coreg) 6.25 mg BID PO ; Start 08/11/18 at 21:00 Lorazepam (Ativan) 1 mg Q8H PRN IV AGITATION/ANXIETY Last administered on 08/10/18at 07:58; Admin Dose 1 MG; Start 08/08/18 at 12:00 EDDIE CARREON NP August 11, 2018 11:03
[2018-08-11] MEDS ORDERED: LIDOCAINE 1% (MPF) 5 ML VIAL SC ONE (12:00)
[2018-08-11] MEDS: SUCRALFATE 1 GM TAB PO SCH ×3 (12:36→20:23)
--- NOTE | 2018-08-11 13:04 | PN ---
Date/Time of Note Date/Time of Note DATE: 08/11/18 TIME: 13:01 Subjective Doing well. Awaiting PICC line currently. Objective Vitals Vital Signs Date Temp Pulse Resp B/P (MAP) Pulse Ox O2 O2 Flow FiO2 Time Delivery Rate 08/11/18 98.0 89 20 167/87 98 Room Air 11:39 (113) 08/10/18 2.0 28 03:23 Intake and Output 08/10/18 08/10/18 08/11/18 1515:00 23:00 07:00 IntakeIntake Total 250 ml 1190 ml 250 ml BalanceBalance 250 ml 1190 ml 250 ml Incision c/d/i. ROM appropriate. No fluctuance, no fluid, no effusion. NVI distally Results Result Diagram: 08/11/18 0539 08/11/1839 Medications Medications Current Medications IV Flush (NS 3 ml) 3 ml PER PROTOCOL IV ; Start 08/04/18 at 19:00 Ondansetron HCl (Zofran Inj) 4 mg Q6H PRN IV NAUSEA/VOMITING Last administered on 08/08/18 05:10; Admin Dose 4 MG; Start 08/04/18 at 19:00 Acetaminophen (Tylenol Tab) 650 mg Q6H PRN PO .PAIN 1-3 OR TEMP; Start 08/04/18 at 19:00 Docusate Sodium (Colace) 100 mg Q12H PRN PO .CONSTIPATION Last administered on 08/07/18at 21:38; Admin Dose 100 MG; Start 08/04/18 at 19:00 Zolpidem Tartrate (Ambien) 5 mg QHS PRN PO .INSOMNIA Last administered on 08/10/18 22:37; Admin Dose 5 MG; Start 08/04/18 at 19:00 Atorvastatin Calcium (Lipitor) 40 mg QHS PO Last administered on 08/10/18 21:29; Admin Dose 40 MG; Start 08/04/18 at 21:00 Sertraline HCl (Zoloft) 50 mg QHS PO Last administered on 08/10/18 21:29; Admin Dose 50 MG; Start 08/04/18 at 21:00 Albuterol/ Ipratropium (Duoneb) 3 ml Q4H RESP THERAPY PRN HHN SHORTNESS OF BREATH; Start 08/05/18 at 02:30 Morphine Sulfate (morphine) 4 mg Q4H PRN IV .SEVERE PAIN 7-10 Last administered on 08/11/18 10:29; Admin Dose 4 MG; Start 08/05/18 at 08:30 Nicotine (Nicoderm 14 Mg/ 24hr) 1 patch DAILY TRANSDERM Last administered on 08/11/18 08:41; Admin Dose 1 PATCH; Start 08/06/18 at 09:00 Acetaminophen/ Hydrocodone Bitart ([place] (10/325)) 1 tab Q3H PRN PO MODERATE PAIN LEVEL 4-6 Last administered on 08/11/18 11:32; Admin Dose 1 TAB; Start 08/05/18 at 20:00 Vancomycin HCl (Vanco Iv Per Pharmacy) VANCOMYCIN PER PHARMACY PER PROTOCOL XX ; Start 08/08/18 at 04:00 Vancomycin HCl 250 ml @ 125 mls/hr Q12H IVPB Last administered on 08/11/18 06:31; Admin Dose 125 MLS/HR; Start 08/08/18 at 17:00 Carvedilol (Coreg) 6.25 mg BID PO ; Start 08/11/18 at 21:00 Lorazepam (Ativan) 1 mg Q8H PRN IV AGITATION/ANXIETY Last administered on 08/10/18at 07:58; Admin Dose 1 MG; Start 08/08/18 at 12:00 Pantoprazole (Protonix Tab) 40 mg BID@06,18 PO ; Start 08/11/18 at 18:00 Sucralfate (Carafate) 1 gm QID PO Last administered on 08/11/18at 12:36; Admin Dose 1 GM; Start 08/11/18 at 13:00 VTE Prophylaxis Risk score (from Nsg)>0 risk: 4 SCD applied (from Nsg): No SCD contraindication: low risk/ambulating Pharmacological prophylaxis: NA/contraindicated Pharm Contraindication: low risk/ambulating Lines/Catheters IV Catheter Type: Saline Lock Arvizu in Place: No Assessment/Plan Hospital Course status post removal of cement spacer and placement of Reverse shoulder arthroplasty. Assessment/Plan Awaiting PICC line for empiric antibitocs. The micro results is likely a contaminent. Yet, given his history, I recommend IV antibiotics for a period of time. The patient agrees. He will likely be discharged today. He will follow up with me in clinic on Thursday in [place]. SARANYA JONES MD August 11, 2018 13:04
--- NOTE | 2018-08-11 14:25 | PN ---
Date/Time of Note Date/Time of Note DATE: 08/11/18 TIME: 14:22 Assessment/Plan VTE Prophylaxis Risk score (from Ns)>0 risk: 4 SCD applied (from Ns): No SCD contraindicated: other (scds) Pharmacological prophylaxis: other (scds) Lines/Catheters IV C[facility]ter Type (from [facility] Saline Lock Urinary Cath still in place: No Assessment/Plan Hospital Course Assessment/Plan Acute upper GI bleeding EGD 08/09/2018 Severe PUD Multiple ulcersnone with active bleeding now. Duodenal ulcers and erosions, no bleeding Anemia secondary to above Hematemesis and melena Septic right shoulder s/p reverse arthroplasty HTN Hx of aortic dissection s/p repair Plan: Repeat EGD in 4 to 6 weeks to verify gastric ulcer healing PPI BID- x6 weeks/Carafate 4 times daily x 6weeks Avoid NSAIDS. GI will sign off but will be available upon reconsult as needed Patient seen in collaboration with Dr. Nunes. Subjective: Course reviewed with nursing staff Patient interviewed and examined All labs, imaging and other results reviewed No over night events, patient feels well today He is tolerating his diet well, no overt signs of GI bleed. No c/o abdominal pain, nausea or vomiting PHYSICAL EXAMINATION: GENERAL: Well developed, well nourished, alert & oriented x 3, in no acute d istress SKIN: No lesions HEAD: Normocephalic, atraumatic, no tenderness. EYES: Pupils equal reactive to light, no discharge. EARS/NOSE AND THROAT: Ears normal, nose normal. NECK: Supple, no masses CHEST: Inspection within normal limits. CARDIOVASCULAR: Heart: Regular rate and rhythm RESPIRATORY: Lungs clear to auscultation GASTROINTESTINAL AND LIVER: Abdomen: Soft, mild epigastric tenderness, no hernias, no masses, no organomegaly, no ascites, no guarding, no rebound tenderness, normoactive bowel sounds. Rectal: Deferred. EXTREMITIES: No cyanosis, clubbing or edema. Result Diagram: 08/11/18 0539 08/11/18 0539 Results 24hrs Laboratory Tests Test 08/10/18 16:12 08/11/18 05:39 Vancomycin Level Trough 11.6 White Blood Count 7.5 Red Blood Count 3.12 #L Hemoglobin 9.0 #L Hematocrit 27.5 #L Mean Corpuscular Volume 88.1 Mean Corpuscular Hemoglobin 28.8 L Mean Corpuscular Hemoglobin Concent 32.7 Red Cell Distribution Width 15.2 H Platelet Count 216 Mean Platelet Volume 9.6 Immature Granulocytes % 0.500 H Neutrophils % 64.3 Lymphocytes % 15.8 Monocytes % 12.6 H Eosinophils % 6.0 Basophils % 0.8 Nucleated Red Blood Cells % 0.0 Immature Granulocytes # 0.040 H Neutrophils # 4.8 Lymphocytes # 1.2 Monocytes # 0.9 Eosinophils # 0.5 Basophils # 0.1 Nucleated Red Blood Cells # 0.0 Sodium Level 139 Potassium Level 3.7 Chloride Level 104 Carbon Dioxide Level 29 Anion Gap 6 Blood Urea Nitrogen 10 Creatinine 0.76 Est Glomerular Filtrat Rate mL/min > 60 Glucose Level 124 Calcium Level 8.1 L Phosphorus Level 3.6 Magnesium Level 1.8 Exam/Review of Systems Exam Vitals Vital Signs Date Temp Pulse Resp B/P (MAP) Pulse Ox O2 O2 Flow FiO2 Time Delivery Rate 08/11/18 98.0 89 20 167/87 98 Room Air 11:39 (113) 08/10/18 2.0 28 03:23 Intake and Output 08/10/18 08/10/18 08/11/18 1515:00 23:00 07:00 IntakeIntake Total 250 ml 1190 ml 250 ml BalanceBalance 250 ml 1190 ml 250 ml Results Results 24hrs Laboratory Tests Test 08/10/18 16:12 08/11/18 05:39 Vancomycin Level Trough 11.6 White Blood Count 7.5 Red Blood Count 3.12 #L Hemoglobin 9.0 #L Hematocrit 27.5 #L Mean Corpuscular Volume 88.1 Mean Corpuscular Hemoglobin 28.8 L Mean Corpuscular Hemoglobin Concent 32.7 Red Cell Distribution Width 15.2 H Platelet Count 216 Mean Platelet Volume 9.6 Immature Granulocytes % 0.500 H Neutrophils % 64.3 Lymphocytes % 15.8 Monocytes % 12.6 H Eosinophils % 6.0 Basophils % 0.8 Nucleated Red Blood Cells % 0.0 Immature Granulocytes # 0.040 H Neutrophils # 4.8 Lymphocytes # 1.2 Monocytes # 0.9 Eosinophils # 0.5 Basophils # 0.1 Nucleated Red Blood Cells # 0.0 Sodium Level 139 Potassium Level 3.7 Chloride Level 104 Carbon Dioxide Level 29 Anion Gap 6 Blood Urea Nitrogen 10 Creatinine 0.76 Est Glomerular Filtrat Rate mL/min > 60 Glucose Level 124 Calcium Level 8.1 L Phosphorus Level 3.6 Magnesium Level 1.8 Medications Medication Current Medications IV Flush (NS 3 ml) 3 ml PER PROTOCOL IV ; Start 08/04/18 at 19:00 Ondansetron HCl (Zofran Inj) 4 mg Q6H PRN IV NAUSEA/VOMITING Last administered on 08/08/18 05:10; Admin Dose 4 MG; Start 08/04/18 at 19:00 Acetaminophen (Tylenol Tab) 650 mg Q6H PRN PO .PAIN 1-3 OR TEMP; Start 08/04/18 at 19:00 Docusate Sodium (Colace) 100 mg Q12H PRN PO .CONSTIPATION Last administered on 08/07/18 21:38; Admin Dose 100 MG; Start 08/04/18 at 19:00 Zolpidem Tartrate (Ambien) 5 mg QHS PRN PO .INSOMNIA Last administered on 08/10/18 22:37; Admin Dose 5 MG; Start 08/04/18 at 19:00 Atorvastatin Calcium (Lipitor) 40 mg QHS PO Last administered on 08/10/18 21:29; Admin Dose 40 MG; Start 08/04/18 at 21:00 Sertraline HCl (Zoloft) 50 mg QHS PO Last administered on 08/10/18 21:29; Admin Dose 50 MG; Start 08/04/18 at 21:00 Albuterol/ Ipratropium (Duoneb) 3 ml Q4H RESP THERAPY PRN HHN SHORTNESS OF BREATH; Start 08/05/18 at 02:30 Morphine Sulfate (morphine) 4 mg Q4H PRN IV .SEVERE PAIN 7-10 Last administered on 08/11/18 10:29; Admin Dose 4 MG; Start 08/05/18 at 08:30 Nicotine (Nicoderm 14 Mg/ 24hr) 1 patch DAILY TRANSDERM Last administered on 08/11/18 08:41; Admin Dose 1 PATCH; Start 08/06/18 at 09:00 Acetaminophen/ Hydrocodone Bitart ([place] (10/325)) 1 tab Q3H PRN PO MODERATE PAIN LEVEL 4-6 Last administered on 08/11/18 11:32; Admin Dose 1 TAB; Start 08/05/18 at 20:00 Vancomycin HCl (Vanco Iv Per Pharmacy) VANCOMYCIN PER PHARMACY PER PROTOCOL XX ; Start 08/08/18 at 04:00 Vancomycin HCl 250 ml @ 125 mls/hr Q12H IVPB Last administered on 08/11/18at 06:31; Admin Dose 125 MLS/HR; Start 08/08/18 at 17:00 Carvedilol (Coreg) 6.25 mg BID PO ; Start 08/11/18 at 21:00 Lorazepam (Ativan) 1 mg Q8H PRN IV AGITATION/ANXIETY Last administered on 08/10/18at 07:58; Admin Dose 1 MG; Start 08/08/18 at 12:00 Pantoprazole (Protonix Tab) 40 mg BID@06,18 PO ; Start 08/11/18 at 18:00 Sucralfate (Carafate) 1 gm QID PO Last administered on 08/11/18at 12:36; Admin Dose 1 GM; Start 08/11/18 at 13:00 JUDITH DYER August 11, 2018 14:25
--- NOTE | 2018-08-11 14:47 | CONS ---
Assessment/Plan Assessment/Plan Hospital Course (Demo Recall) Patient is alert looks comfortable denies pain no fevers overnight WBC 7.5 no shift no bands BUN 10 creatinine 0.76 Microbiology: Intraoperative culture grew coag negative staph Antimicrobials: Vanco Physical examination:Physical examination: Well-developed elderly man who is alert in no distress. Head atraumatic normocephalic neck is supple chest rise symmetrical breath sounds clear heart S1-S2 abdomen soft bowel sounds present extremities without cyanosis, right shoulder dressing clean dry and intact Assessment: 1. 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 Hypertension 3. History of EtOH 4. Allergies: Penicillin, sulfa Plan: Stable, pending PICC line, plan to discharge home with IV vancomycin for 4 more weeks Consultation Date/Type/Reason Admit Date/Time August 05, 2018 at 13:00 Initial Consult Date 08/08/18 Type of Consult id Requesting Provider: SARANYA JONES MD Date/Time of Note DATE: 08/11/18 TIME: 14:47 Exam/Review of Systems Exam Vitals Vital Signs Date Temp Pulse Resp B/P (MAP) Pulse Ox O2 O2 Flow FiO2 Time Delivery Rate 08/11/18 98.0 89 20 167/87 98 Room Air 11:39 (113) 08/10/18 2.0 28 03:23 Intake and Output 08/10/18 08/10/18 08/11/18 1515:00 23:00 07:00 IntakeIntake Total 250 ml 1190 ml 250 ml BalanceBalance 250 ml 1190 ml 250 ml Results Result Diagram: 08/11/18 0539 08/11/18 0539 Results 24hrs Laboratory Tests Test 08/10/18 16:12 08/11/18 05:39 Vancomycin Level Trough 11.6 White Blood Count 7.5 Red Blood Count 3.12 #L Hemoglobin 9.0 #L Hematocrit 27.5 #L Mean Corpuscular Volume 88.1 Mean Corpuscular Hemoglobin 28.8 L Mean Corpuscular Hemoglobin Concent 32.7 Red Cell Distribution Width 15.2 H Platelet Count 216 Mean Platelet Volume 9.6 Immature Granulocytes % 0.500 H Neutrophils % 64.3 Lymphocytes % 15.8 Monocytes % 12.6 H Eosinophils % 6.0 Basophils % 0.8 Nucleated Red Blood Cells % 0.0 Immature Granulocytes # 0.040 H Neutrophils # 4.8 Lymphocytes # 1.2 Monocytes # 0.9 Eosinophils # 0.5 Basophils # 0.1 Nucleated Red Blood Cells # 0.0 Sodium Level 139 Potassium Level 3.7 Chloride Level 104 Carbon Dioxide Level 29 Anion Gap 6 Blood Urea Nitrogen 10 Creatinine 0.76 Est Glomerular Filtrat Rate mL/min > 60 Glucose Level 124 Calcium Level 8.1 L Phosphorus Level 3.6 Magnesium Level 1.8 Medications Medication Current Medications IV Flush (NS 3 ml) 3 ml PER PROTOCOL IV ; Start 08/04/18 at 19:00 Ondansetron HCl (Zofran Inj) 4 mg Q6H PRN IV NAUSEA/VOMITING Last administered on 08/08/18 05:10; Admin Dose 4 MG; Start 08/04/18 at 19:00 Acetaminophen (Tylenol Tab) 650 mg Q6H PRN PO .PAIN 1-3 OR TEMP; Start 08/04/18 at 19:00 Docusate Sodium (Colace) 100 mg Q12H PRN PO .CONSTIPATION Last administered on 08/07/18 21:38; Admin Dose 100 MG; Start 08/04/18 at 19:00 Zolpidem Tartrate (Ambien) 5 mg QHS PRN PO .INSOMNIA Last administered on 08/10/18 22:37; Admin Dose 5 MG; Start 08/04/18 at 19:00 Atorvastatin Calcium (Lipitor) 40 mg QHS PO Last administered on 08/10/18 21:29; Admin Dose 40 MG; Start 08/04/18 at 21:00 Sertraline HCl (Zoloft) 50 mg QHS PO Last administered on 08/10/18 21:29; Admin Dose 50 MG; Start 08/04/18 at 21:00 Albuterol/ Ipratropium (Duoneb) 3 ml Q4H RESP THERAPY PRN HHN SHORTNESS OF BREATH; Start 08/05/18 at 02:30 Morphine Sulfate (morphine) 4 mg Q4H PRN IV .SEVERE PAIN 7-10 Last administered on 08/11/18 10:29; Admin Dose 4 MG; Start 08/05/18 at 08:30 Nicotine (Nicoderm 14 Mg/ 24hr) 1 patch DAILY TRANSDERM Last administered on 08/11/18 08:41; Admin Dose 1 PATCH; Start 08/06/18 at 09:00 Acetaminophen/ Hydrocodone Bitart ([place] (10/325)) 1 tab Q3H PRN PO MODERATE PAIN LEVEL 4-6 Last administered on 08/11/18at 11:32; Admin Dose 1 TAB; Start 08/05/18 at 20:00 Vancomycin HCl (Vanco Iv Per Pharmacy) VANCOMYCIN PER PHARMACY PER PROTOCOL XX ; Start 08/08/18 at 04:00 Vancomycin HCl 250 ml @ 125 mls/hr Q12H IVPB Last administered on 08/11/18at 06:31; Admin Dose 125 MLS/HR; Start 08/08/18 at 17:00 Carvedilol (Coreg) 6.25 mg BID PO ; Start 08/11/18 at 21:00 Lorazepam (Ativan) 1 mg Q8H PRN IV AGITATION/ANXIETY Last administered on 08/10/18at 07:58; Admin Dose 1 MG; Start 08/08/18 at 12:00 Pantoprazole (Protonix Tab) 40 mg BID@06,18 PO ; Start 08/11/18 at 18:00 Sucralfate (Carafate) 1 gm QID PO Last administered on 08/11/18at 12:36; Admin Dose 1 GM; Start 08/11/18 at 13:00 MICHELE COUCH NP August 11, 2018 14:47
[2018-08-11] MEDS: PANTOPRAZOLE (EC) 40 MG TAB PO SCH (17:07)
[2018-08-11] MEDS: ATORVASTATIN 40 MG TAB PO SCH (20:23)
[2018-08-11] MEDS: SERTRALINE 50 MG TAB PO SCH (20:23)
[2018-08-12] MEDS: ZOLPIDEM 5 MG TAB PO PRN (00:36)
[2018-08-12 02:00] VITALS: BP 121/71; PULSE 64; RESP 18
[2018-08-12] MEDS: morphine 2 MG INJ IV PRN ×5 (04:00→20:11)
[2018-08-12] MEDS: VANCOMYCIN 1 GM 250 ML IVPB SCH ×2 (05:14→17:20)
[2018-08-12] MEDS: HYDROCODONE/APAP (10/325) TAB PO PRN ×5 (05:17→23:06)
[2018-08-12] MEDS: PANTOPRAZOLE (EC) 40 MG TAB PO SCH ×2 (05:19→17:20)
[2018-08-12] MEDS: SUCRALFATE 1 GM TAB PO SCH ×4 (08:49→20:10)
[2018-08-12] MEDS: NICOTINE (14 MG/24 HR) PATCH TRANSDERM SCH (08:49)
[2018-08-12 09:16] VITALS: BP 129/69; PULSE 66; RESP 18
--- NOTE | 2018-08-12 13:02 | CONS ---
Assessment/Plan Assessment/Plan Hospital Course (Demo Recall) Patient is alert looks comfortable Microbiology: Intraoperative culture grew coag negative staph Antimicrobials: Vanco Physical examination:Physical examination: Well-developed elderly man who is alert in no distress. Head atraumatic normocephalic neck is supple chest rise symmetrical breath sounds clear heart S1-S2 abdomen soft bowel sounds present extremities without cyanosis, right shoulder dressing clean dry and intact Assessment: 1. 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 Hypertension 3. History of EtOH 4. Allergies: Penicillin, sulfa Plan: Stable, plan to discharge home with IV vancomycin for 4 more weeks, monitor renal function while on vancomycin Consultation Date/Type/Reason Admit Date/Time August 05, 2018 at 13:00 Initial Consult Date 08/08/18 Type of Consult id Requesting Provider: SARANYA JONES MD Date/Time of Note DATE: 08/12/18 TIME: 13:01 Exam/Review of Systems Exam Vitals Vital Signs Date Temp Pulse Resp B/P (MAP) Pulse Ox O2 O2 Flow FiO2 Time Delivery Rate 08/12/18 98.1 66 18 129/69 99 09:16 (89) 08/11/18 Room Air 16:53 08/10/18 2.0 28 03:23 Intake and Output 08/11/18 08/11/18 08/12/18 1515:00 23:00 07:00 IntakeIntake Total 290 ml 1085 ml 480 ml BalanceBalance 290 ml 1085 ml 480 ml Results Result Diagram: 08/12/18 0600 08/12/18 0600 Results 24hrs Laboratory Tests Test 08/12/18 06:00 08/12/18 06:22 White Blood Count 8.0 Red Blood Count 2.77 L Hemoglobin 8.1 L Hematocrit 24.7 L Mean Corpuscular Volume 89.2 Mean Corpuscular Hemoglobin 29.2 Mean Corpuscular Hemoglobin Concent 32.8 Red Cell Distribution Width 15.3 H Platelet Count 227 Mean Platelet Volume 9.9 Immature Granulocytes % 0.700 H Neutrophils % 66.1 Lymphocytes % 15.7 Monocytes % 12.8 H Eosinophils % 4.1 Basophils % 0.6 Nucleated Red Blood Cells % 0.0 Immature Granulocytes # 0.060 H Neutrophils # 5.3 Lymphocytes # 1.3 Monocytes # 1.0 H Eosinophils # 0.3 Basophils # 0.1 Nucleated Red Blood Cells # 0.0 Sodium Level 138 Potassium Level 3.5 Chloride Level 106 Carbon Dioxide Level 27 Anion Gap 5 Blood Urea Nitrogen 8 Creatinine 0.67 Est Glomerular Filtrat Rate mL/min > 60 Glucose Level 85 Calcium Level 7.7 L Phosphorus Level 3.6 Magnesium Level 1.8 Lab Scanned Report BLOOD TRANSFUSION Medications Medication Current Medications IV Flush (NS 3 ml) 3 ml PER PROTOCOL IV ; Start 08/04/18 at 19:00 Ondansetron HCl (Zofran Inj) 4 mg Q6H PRN IV NAUSEA/VOMITING Last administered on 08/08/18 05:10; Admin Dose 4 MG; Start 08/04/18 at 19:00 Acetaminophen (Tylenol Tab) 650 mg Q6H PRN PO .PAIN 1-3 OR TEMP; Start 08/04/18 at 19:00 Docusate Sodium (Colace) 100 mg Q12H PRN PO .CONSTIPATION Last administered on 08/07/18 21:38; Admin Dose 100 MG; Start 08/04/18 at 19:00 Zolpidem Tartrate (Ambien) 5 mg QHS PRN PO .INSOMNIA Last administered on 08/12/18 00:36; Admin Dose 5 MG; Start 08/04/18 at 19:00 Atorvastatin Calcium (Lipitor) 40 mg QHS PO Last administered on 08/11/18 20:23; Admin Dose 40 MG; Start 08/04/18 at 21:00 Sertraline HCl (Zoloft) 50 mg QHS PO Last administered on 08/11/18 20:23; Admin Dose 50 MG; Start 08/04/18 at 21:00 Albuterol/ Ipratropium (Duoneb) 3 ml Q4H RESP THERAPY PRN HHN SHORTNESS OF BREATH; Start 08/05/18 at 02:30 Morphine Sulfate (morphine) 4 mg Q4H PRN IV .SEVERE PAIN 7-10 Last administered on 08/12/18 12:09; Admin Dose 4 MG; Start 08/05/18 at 08:30 Nicotine (Nicoderm 14 Mg/ 24hr) 1 patch DAILY TRANSDERM Last administered on 08/12/18 08:49; Admin Dose 1 PATCH; Start 08/06/18 at 09:00 Acetaminophen/ Hydrocodone Bitart ([place] (10/325)) 1 tab Q3H PRN PO MODERATE PAIN LEVEL 4-6 Last administered on 08/12/18at 08:50; Admin Dose 1 TAB; Start 08/05/18 at 20:00 Vancomycin HCl (Vanco Iv Per Pharmacy) VANCOMYCIN PER PHARMACY PER PROTOCOL XX ; Start 08/08/18 at 04:00 Vancomycin HCl 250 ml @ 125 mls/hr Q12H IVPB Last administered on 08/12/18at 05:14; Admin Dose 125 MLS/HR; Start 08/08/18 at 17:00 Carvedilol (Coreg) 6.25 mg BID PO Last administered on 08/12/18at 08:50; Admin Dose 6.25 MG; Start 08/11/18 at 21:00 Lorazepam (Ativan) 1 mg Q8H PRN IV AGITATION/ANXIETY Last administered on 08/10/18at 07:58; Admin Dose 1 MG; Start 08/08/18 at 12:00 Pantoprazole (Protonix Tab) 40 mg BID@06,18 PO Last administered on 08/12/18at 05:19; Admin Dose 40 MG; Start 08/11/18 at 18:00 Sucralfate (Carafate) 1 gm QID PO Last administered on 08/12/18at 08:49; Admin Dose 1 GM; Start 08/11/18 at 13:00 IV Flush (NS 10 ml) 10 ml PRN PRN IV IV PROTOCOL; Start 08/11/18 at 17:00 MICHELE COUCH NP August 12, 2018 13:02
--- NOTE | 2018-08-12 16:23 | CONS ---
Assessment/Plan Assessment/Plan Hospital Course (Demo Recall) SUBJECTIVE: RUE pain well controlled. OBJECTIVE: Physical Exam General: Adequately build 63 year-old male lying in bed in no apparent distress. HEENT: Normocephalic, atraumatic. Eyes: Anicteric sclerae, conjunctivae clear. ENT: Nasal septum midline, oral mucosa moist. Neck supple, no JVD noticed. Respiratory: Bilaterally diminished breath sounds. No use of accessory muscles of respiration. No adventitious breath sounds. Cardiovascular: S1, S2 heard. Regular rate and rhythm. Abdomen: Soft, nontender, and nondistended. Bowel sounds positive in all 4 quadrants. Genitourinary: Deferred. Extremities: No cyanosis, no clubbing, no edema. Peripheral pulses palpable. Right shoulder joint dressing. Neurologic: Cranial nerves II through XII grossly intact. The patient is awake, alert, and oriented. Skin: Multiple areas of bruising on bilateral upper extremities. Labs & Vitals per chart ASSESSMENT & PLAN 63-year-old male with comorbidities including attention, COPD, dyslipidemia, depression, and right shoulder surgery with subsequent infection who was brought in for elective right shoulder surgical intervention. The patient underwent a removal of explant of hemiarthroplasty cement spacer, reverse total shoulder arthroplasty, and application of wound VAC on 08/04/2018. Hospitalist was consulted for medical management. On 08/08/2018, the patient had an acute episode of coffee-ground emesis with associated anemia. 1. Right shoulder joint infection. -Status post removal explant of hemiarthroplasty cement spacer, reverse total shoulder arthroplasty, and application of wound VAC on 08/04/2018. -Continue antimicrobials as per sensitivities. -Continue pain control. -Physical therapy as per orthopedic surgery. -Anticoagulation on hold because of gastrointestinal bleeding. 2. Acute gastrointestinal bleeding. -Monitor H&H closely. -Transfuse blood products as indicated. -S/P esophagogastroduodenoscopy on 08/09/2018 that showed severe PUD with no active bleeding. Continue PPI and Carafate. 3. Anemia of acute blood loss. -Status post transfusion of 3 units of PRBC. -Monitor H&H closely. 4. Depression. -Continue antidepressants. 5. Dyslipidemia. -Continue statins. 6. Nicotine use. -Continue nicotine patch. 7. COPD. -Stable. -No evidence of any exacerbation. 8. Hypertension. -Continue antihypertensives. 9. Fluids, electrolytes, and nutrition. -Soft diet. 10. DVT prophylaxis -Bilateral SCDs. 11. Plan. -Continue PPI and Carafate. -Infectious diseases recommending long-term IV antibiotic therapy. -S/P PICC line placement. -The patient is medically stable to be discharged as per the primary care physician once outpatient antibiotics are arranged.. Thank you for the consult. The patient was seen in collaboration with Dr. Henley. Consultation Date/Type/Reason Admit Date/Time August 05, 2018 at 13:00 Initial Consult Date 08/08/18 Type of Consult Medical Reason for Consultation Medical management. Requesting Provider: SARANYA JONES MD Date/Time of Note DATE: 08/12/18 TIME: 16:21 Exam/Review of Systems Exam Vitals Vital Signs Date Temp Pulse Resp B/P (MAP) Pulse Ox O2 O2 Flow FiO2 Time Delivery Rate 08/12/18 98.1 66 18 129/69 99 09:16 (89) 08/11/18 Room Air 16:53 08/10/18 2.0 28 03:23 Intake and Output 08/11/18 08/11/18 08/12/18 1515:00 23:00 07:00 IntakeIntake Total 290 ml 1085 ml 480 ml BalanceBalance 290 ml 1085 ml 480 ml Results Result Diagram: 08/12/18 0600 08/12/18 0600 Results 24hrs Laboratory Tests Test 08/12/18 06:00 08/12/18 06:22 White Blood Count 8.0 Red Blood Count 2.77 L Hemoglobin 8.1 L Hematocrit 24.7 L Mean Corpuscular Volume 89.2 Mean Corpuscular Hemoglobin 29.2 Mean Corpuscular Hemoglobin Concent 32.8 Red Cell Distribution Width 15.3 H Platelet Count 227 Mean Platelet Volume 9.9 Immature Granulocytes % 0.700 H Neutrophils % 66.1 Lymphocytes % 15.7 Monocytes % 12.8 H Eosinophils % 4.1 Basophils % 0.6 Nucleated Red Blood Cells % 0.0 Immature Granulocytes # 0.060 H Neutrophils # 5.3 Lymphocytes # 1.3 Monocytes # 1.0 H Eosinophils # 0.3 Basophils # 0.1 Nucleated Red Blood Cells # 0.0 Sodium Level 138 Potassium Level 3.5 Chloride Level 106 Carbon Dioxide Level 27 Anion Gap 5 Blood Urea Nitrogen 8 Creatinine 0.67 Est Glomerular Filtrat Rate mL/min > 60 Glucose Level 85 Calcium Level 7.7 L Phosphorus Level 3.6 Magnesium Level 1.8 Lab Scanned Report BLOOD TRANSFUSION Medications Medication Current Medications IV Flush (NS 3 ml) 3 ml PER PROTOCOL IV ; Start 08/04/18 at 19:00 Ondansetron HCl (Zofran Inj) 4 mg Q6H PRN IV NAUSEA/VOMITING Last administered on 08/08/18 05:10; Admin Dose 4 MG; Start 08/04/18 at 19:00 Acetaminophen (Tylenol Tab) 650 mg Q6H PRN PO .PAIN 1-3 OR TEMP; Start 08/04/18 at 19:00 Docusate Sodium (Colace) 100 mg Q12H PRN PO .CONSTIPATION Last administered on 08/07/18 21:38; Admin Dose 100 MG; Start 08/04/18 at 19:00 Zolpidem Tartrate (Ambien) 5 mg QHS PRN PO .INSOMNIA Last administered on 08/12/18 00:36; Admin Dose 5 MG; Start 08/04/18 at 19:00 Atorvastatin Calcium (Lipitor) 40 mg QHS PO Last administered on 08/11/18 20:23; Admin Dose 40 MG; Start 08/04/18 at 21:00 Sertraline HCl (Zoloft) 50 mg QHS PO Last administered on 08/11/18 20:23; Admin Dose 50 MG; Start 08/04/18 at 21:00 Albuterol/ Ipratropium (Duoneb) 3 ml Q4H RESP THERAPY PRN HHN SHORTNESS OF BREATH; Start 08/05/18 at 02:30 Morphine Sulfate (morphine) 4 mg Q4H PRN IV .SEVERE PAIN 7-10 Last administered on 08/12/18 16:04; Admin Dose 4 MG; Start 08/05/18 at 08:30 Nicotine (Nicoderm 14 Mg/ 24hr) 1 patch DAILY TRANSDERM Last administered on 08/12/18 08:49; Admin Dose 1 PATCH; Start 08/06/18 at 09:00 Acetaminophen/ Hydrocodone Bitart ([place] (10/325)) 1 tab Q3H PRN PO MODERATE PAIN LEVEL 4-6 Last administered on 08/12/18 13:33; Admin Dose 1 TAB; Start 08/05/18 at 20:00 Vancomycin HCl (Vanco Iv Per Pharmacy) VANCOMYCIN PER PHARMACY PER PROTOCOL XX ; Start 08/08/18 at 04:00 Vancomycin HCl 250 ml @ 125 mls/hr Q12H IVPB Last administered on 08/12/18at 05:14; Admin Dose 125 MLS/HR; Start 08/08/18 at 17:00 Carvedilol (Coreg) 6.25 mg BID PO Last administered on 08/12/18at 08:50; Admin Dose 6.25 MG; Start 08/11/18 at 21:00 Lorazepam (Ativan) 1 mg Q8H PRN IV AGITATION/ANXIETY Last administered on 08/10/18at 07:58; Admin Dose 1 MG; Start 08/08/18 at 12:00 Pantoprazole (Protonix Tab) 40 mg BID@06,18 PO Last administered on 08/12/18at 05:19; Admin Dose 40 MG; Start 08/11/18 at 18:00 Sucralfate (Carafate) 1 gm QID PO Last administered on 08/12/18at 13:33; Admin Dose 1 GM; Start 08/11/18 at 13:00 IV Flush (NS 10 ml) 10 ml PRN PRN IV IV PROTOCOL; Start 08/11/18 at 17:00 EDDIE CARREON NP August 12, 2018 16:23
[2018-08-12] MEDS: ATORVASTATIN 40 MG TAB PO SCH (20:10)
[2018-08-12] MEDS: SERTRALINE 50 MG TAB PO SCH (20:10)
[2018-08-12 20:30] VITALS: BP 144/68; PULSE 68; RESP 16
[2018-08-13] MEDS: morphine 2 MG INJ IV PRN ×3 (00:20→09:01)
[2018-08-13] MEDS: ZOLPIDEM 5 MG TAB PO PRN (00:51)
[2018-08-13 03:00] VITALS: BP 127/69; PULSE 69; RESP 16
[2018-08-13] MEDS: PANTOPRAZOLE (EC) 40 MG TAB PO SCH (05:11)
[2018-08-13] MEDS: VANCOMYCIN 1 GM 250 ML IVPB SCH (05:11)
[2018-08-13] MEDS: HYDROCODONE/APAP (10/325) TAB PO PRN ×2 (06:25→09:55)
[2018-08-13 07:35] VITALS: BP 140/70; PULSE 63; RESP 18
[2018-08-13] MEDS: NICOTINE (14 MG/24 HR) PATCH TRANSDERM SCH (08:56)
[2018-08-13] MEDS: SUCRALFATE 1 GM TAB PO SCH (08:56)
[2018-08-13] MEDS ORDERED: SUCR1TAB35 PO (10:11)
[2018-08-13] MEDS ORDERED: PANT40TA4 PO (10:11)
--- NOTE | 2018-08-13 10:17 | PDOCDIS ---
Discharge Instructions CONDITION [id number] Patient Condition: [id number] Stable HOME CARE INSTRUCTIONS: [id number] Diet Instructions: [id number] Regular FOLLOW UP/APPOINTMENTS Follow-up Plan 1. Pieter Moore MD Specialty: Infectious Disease Office Address [facility] [facility] [address] [place] [address] Office 2. Rory Nunes MD Specialty: Gastroenterology Office Address [id number] [place] [address] [address] [place] [address] Office 3. Roland Casillas MD Specialty: Orthopedic Surgery Office Address [id number] [place] [address]. [address] [place] [address] Office OTHER ORDERS: Other Orders: 1. Resume home medications. 2. Take a regular diet as tolerated. 3. Resume activities as tolerated. 4. Start taking Protonix and Carafate. 5. Follow-up with orthopedic surgeon as scheduled. 6. Please follow-up with infectious diseases specialist (Dr. Moore) in 1 month. 7. Please follow-up with lumber sorter (Dr. uNnes) in 1 month. EDDIE CARREON NP August 13, 2018 10:17
--- NOTE | 2018-08-13 13:04 | CONS ---
Assessment/Plan Assessment/Plan Hospital Course (Demo Recall) 1100 Patient is alert looks comfortable Microbiology: Intraoperative culture grew coag negative staph Antimicrobials: Vanco Physical examination:Physical examination: Well-developed elderly man who is alert in no distress. Head atraumatic normocephalic neck is supple chest rise symmetrical breath sounds clear heart S1-S2 abdomen soft bowel sounds present extremities without cyanosis, right shoulder dressing clean dry and intact Assessment: 1. 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 Hypertension 3. History of EtOH 4. Allergies: Penicillin, sulfa Plan: Stable, pending discharge home with IV vancomycin for 4 more weeks, monitor renal function while on vancomycin Consultation Date/Type/Reason Admit Date/Time August 05, 2018 at 13:00 Initial Consult Date 08/08/18 Type of Consult id Requesting Provider: SARANYA JONES MD Date/Time of Note DATE: 08/13/18 TIME: 13:03 Exam/Review of Systems Exam Vitals Vital Signs Date Temp Pulse Resp B/P (MAP) Pulse Ox O2 O2 Flow FiO2 Time Delivery Rate 08/13/18 98.2 63 18 140/70 96 Room Air 07:35 (93) 08/10/18 2.0 28 03:23 Intake and Output 08/12/18 08/12/18 08/13/18 1515:00 23:00 07:00 IntakeIntake Total 610 ml 490 ml BalanceBalance 610 ml 490 ml Results Result Diagram: 08/13/18 0444 08/13/18 0444 Results 24hrs Laboratory Tests Test 08/13/18 04:44 White Blood Count 8.5 Red Blood Count 2.85 L Hemoglobin 8.3 L Hematocrit 25.6 L Mean Corpuscular Volume 89.8 Mean Corpuscular Hemoglobin 29.1 Mean Corpuscular Hemoglobin Concent 32.4 Red Cell Distribution Width 15.5 H Platelet Count 257 Mean Platelet Volume 9.4 Immature Granulocytes % 1.200 H Neutrophils % 60.4 Lymphocytes % 16.6 Monocytes % 14.9 H Eosinophils % 5.8 Basophils % 1.1 Nucleated Red Blood Cells % 0.0 Immature Granulocytes # 0.100 H Neutrophils # 5.2 Lymphocytes # 1.4 Monocytes # 1.3 H Eosinophils # 0.5 Basophils # 0.1 Nucleated Red Blood Cells # 0.0 Sodium Level 138 Potassium Level 4.0 Chloride Level 103 Carbon Dioxide Level 31 Anion Gap 4 L Blood Urea Nitrogen 9 Creatinine 0.71 Est Glomerular Filtrat Rate mL/min > 60 Glucose Level 115 Calcium Level 8.0 L Phosphorus Level 3.7 Magnesium Level 2.0 MICHELE COUCH NP August 13, 2018 13:04
--- NOTE | 2018-08-13 15:23 | DS ---
Date/Time of Note Date/Time of Note DATE: 08/13/18 TIME: 15:23 Discharge Summary Admission/Discharge Info Admit Date/Time August 05, 2018 at 13:00 Discharge Date/Time August 13, 2018 at 12:00 Discharge Diagnosis 1. Right shoulder joint infection. Status post removal explant of hemiarthroplasty cement spacer, reverse total shoulder arthroplasty, and application of wound VAC on 08/04/2018. 2. Acute gastrointestinal bleeding secondary to peptic ulcers. 3. Anemia of acute blood loss. 4. Depression. 5. Dyslipidemia. 6. Nicotine use. 7. COPD. 8. Hypertension. Patient Condition: Stable Consults 1. Saranya Jones MD, Orthopedic Surgery. 2. Pieter Moore MD, Infectious Diseases. 3. Rory Nunes MD, Gastroenterology. Procedures OPERATIVE REPORT DATE OF OPERATION: 08/04/2018 SURGEON: Saranya Jones MD FLASH WELDER: Michele Urrutia MD ANESTHESIOLOGIST: Dr. Castañeda ANESTHESIA: General with interscalene block. PREOPERATIVE DIAGNOSIS: Status post right total shoulder infection. POSTOPERATIVE DIAGNOSIS: Status post right total shoulder infection. PROCEDURES: 1. Removal explant of hemiarthroplasty cement spacer. 2. Reverse total shoulder arthroplasty. 3. Application of wound VAC. Esophagogastroduodenoscopy on 08/09/2018 Impression: Severe peptic ulcer disease. Multiple ulcers-none with active bleeding. Duodenal ulcers and erosions, no bleeding __ DIAGNOSTIC IMAGING REPORT Patient: MISHAHAYES HOLDER : 1955 Age: 63 Sex: M MR #: [id number] [facility] #: [id number] DOS: 08/11/18 1134 Ordering MD: EDDIE CARREON NP Location: [facility] [place] PROC[facility]: XR Chest, 1 View CLINICAL INDICATION: PICC line placement. TECHNIQUE: Frontal view of the chest. COMPARISON: None FINDINGS: LIMITATIONS: The lower thorax is excluded from the field of view. LUNGS: No consolidative pulmonary infiltrates noted. PLEURAL SPACE: Unremarkable. No pneumothorax. HEART: Unremarkable. No cardiomegaly. MEDIASTINUM: Unremarkable. BONES/JOINTS: Degenerative spine changes are noted. Status post median sternotomy. Bilateral shoulder prosthesis. TUBES, LINES AND DEVICES: Left-sided PICC line noted, with distal tip over lying the distal SVC. IMPRESSION: 1. The lower thorax is excluded from the field of view. 2. Left-sided PICC line noted, with distal tip overlying the distal SVC. 3. No consolidative pulmonary infiltrates noted. Hx of Present Illness This is a 63-year-old male with comorbidities including attention, COPD, dyslipidemia, depression, and right shoulder surgery with subsequent infection who was brought in for elective right shoulder surgical intervention. The patient underwent a removal of explant of hemiarthroplasty cement spacer, reverse total shoulder arthroplasty, and application of wound VAC on 08/04/2018. Hospitalist was consulted for medical management. On 08/08/2018, the patient had an acute episode of coffee-ground emesis with associated anemia. Hospital Course The patient was maintained on empiric antimicrobials for the right shoulder joint infection. The patient's shoulder joint area culture showed Staph aureus. Since the patient has a history of recurrent right shoulder joint infection, infectious disease recommended to continue the patient on IV antimicrobial therapy for at least 4 weeks. Therefore, a PICC line was inserted on 08/11/2018 and home health was arranged for providing IV antibiotics. The patient had an acute episode of gastrointestinal bleeding while in-house on 08/08/2018. Therefore, a gastroenterology consult was obtained. The patient was started on proton pump inhibitors. The patient underwent an esophagogastroduodenoscopy on 08/09/2018 that showed severe peptic ulcer disease with no active bleeding. Gastroenterology recommended to continue the patient on proton pump inhibitors and Carafate. Staffing Analyst recommended repeat esophagogastroduodenoscopy in 4 to 6 weeks. The patient had anemia of acute blood loss secondary to underlying gastrointestinal bleeding. The patient received 3 units of PRBC during this hospitalization. The patient's chronic problems include depression. The patient was maintained on antidepressants for the same. The patient was on statins for his underlying dyslipidemia. The patient has a COPD history. The patient did not have any evidence of active bronchospasms. The patient has underlying hypertension. The patient was maintained on antihypertensives for the same. The patient had a prolonged hospital course because of the gastrointestinal bleeding that complicated the patient's hospital course. The patient is stable to be discharged home, to be continued on antibiotics Discharge Instructions 1. Resume home medications. 2. Take a regular diet as tolerated. 3. Resume activities as tolerated. 4. Start taking Protonix and Carafate. 5. Follow-up with orthopedic surgeon as scheduled. 6. Please follow-up with infectious diseases specialist (Dr. Moore) in 1 month. 7. Please follow-up with diagnostic technician (Dr. Nunes) in 1 month. The patient verbalized understanding of his discharge instructions At this time I would like to thank all the consultants for seeing the patient, doing the necessary procedures, and providing clinical recommendations. The patient was seen in collaboration with Dr. Henley. Home Meds Active Scripts Sucralfate (Carafate) 1 Gm Tablet, 1 GM PO QID, #120 TAB Prov:EDDIE CARREON RN UROLOGY 08/13/18 Pantoprazole* (Pantoprazole*) 40 Mg Tablet., 40 MG PO BID@,18, #60 TAB Prov:EDDIE CARREON RN UROLOGY 08/13/18 Reported Medications Sertraline Hcl* (Zoloft*) 50 Mg Tablet, 50 MG PO QHS, #30 TAB 08/04/18 Lisinopril* (Lisinopril*) 40 Mg Tablet, 40 MG PO DAILY, #30 TAB 02/17/18 Amlodipine Besylate* (Amlodipine Besylate*) 10 Mg Tablet, 10 MG PO DAILY, #30 TAB 02/17/18 Carvedilol* (Carvedilol*) 25 Mg Tablet, 25 MG PO BID, #60 TAB 02/17/18 Atorvastatin* (Atorvastatin*) 40 Mg Tablet, 40 MG PO QHS, #30 TAB 02/17/18 Chlorthalidone* (Chlorthalidone*) 25 Mg Tablet, 25 MG PO DAILY, TAB 02/17/18 Follow-up Plan 1. Pieter Moore MD Specialty: Infectious Disease Office Address [address] [place] [address] Office 2. Rory Nunes MD Specialty: Gastroenterology Office Address [address] [place] [address] Office 3. Saranya Jones MD Specialty: Orthopedic Surgery Office Address [address] [place] [address] Office Primary Care Provider [facility] Time spent on discharge: > 30 minutes Pending Labs RUN DATE: 08/09/18 [facility] PAGE 1 RUN TIME: [id number] [place] [address] Romeo Smith M.D. [employer] Manager Sonja Tomlin M.D. [employer] Manager KHALIF#: [id number] Name: HAYES LEOS Age/Sex: 63/M Attend Dr: SARANYA JONES MD Acct: [id number] MR# : [id number] : 1955 Location: [facility] 631-A Admit: 08/05/18 ----- Specimen: [id number] Status: Complete Devika: 08/04/18-1516 Rcvd: 08/04/18 Source: RT CHHAYA Parra Descrip: Procedure Result Microbiology GRAM STAIN Final EPITHELIAL CELLS 1+ . NO ORGANISM SEEN WOUND CULTURE Final Organism 1 COAGULASE NEGATIVE STAPH QUANTITY RARE COAG NEG M.I.C. RX --------- --- CEFAZOLIN S CIPROFLOXACIN <=0.5 S CLINDAMYCIN <=0.25 S DOXYCYCLINE S ERYTHROMYCIN >=8 R LEVOFLOXACIN <=0.12 S OXACILLIN <=0.25 S PENICILLIN-G R RIFAMPIN <=0.5 S VANCOMYCIN <=0.5 S TRIMETHOPRIM/SULFAMETHOXAZOLE <=10 S ... ......................................................................................... Flags: Critical Hi = *H Critical Lo = *L Microbiology Abnormal = * Abnormal Hi = H Abnormal Lo = L Blood Bank Abnormal = * Susceptability Flags: S = Sensitive R = Resistant I = Intermediate END OF REPORT Laboratory Tests Test 08/13/18 04:44 White Blood Count 8.5 10^3/ul (4.8-10.8) Red Blood Count 2.85 10^6/ul (4.70-6.10) Hemoglobin 8.3 g/dl (14.0-18.0) Hematocrit 25.6 % (42.0-52.0) Mean Corpuscular Volume 89.8 fl (82.0-101.0) Mean Corpuscular Hemoglobin 29.1 pg (29.0-33.0) Mean Corpuscular Hemoglobin Concent 32.4 g/dl (32.0-37.0) Red Cell Distribution Width 15.5 % (11.5-14.5) Platelet Count 257 10^3/UL (140-415) Mean Platelet Volume 9.4 fl (7.4-10.4) Immature Granulocytes % 1.200 % (0.001-0.429) Neutrophils % 60.4 % (39.0-77.0) Lymphocytes % 16.6 % (15.0-51.0) Monocytes % 14.9 % (0.0-11.0) Eosinophils % 5.8 % (0.0-7.0) Basophils % 1.1 % (0.0-2.0) Nucleated Red Blood Cells % 0.0 /100WBC (0.0-0.0) Immature Granulocytes # 0.100 10^3/ul (0.0-0.031) Neutrophils # 5.2 10^3/ul (1.6-7.5) Lymphocytes # 1.4 10^3/ul (0.8-2.9) Monocytes # 1.3 10^3/ul (0.3-0.9) Eosinophils # 0.5 10^3/ul (0.0-0.5) Basophils # 0.1 10^3/ul (0.0-0.1) Nucleated Red Blood Cells # 0.0 10^3/ul (0.0-0.0) Sodium Level 138 mmol/L (135-144) Potassium Level 4.0 mmol/L (3.5-5.1) Chloride Level 103 mmol/L (97-110) Carbon Dioxide Level 31 mmol/L (21-31) Anion Gap 4 (5-13) Blood Urea Nitrogen 9 mg/dl (7-20) Creatinine 0.71 mg/dl (0.61-1.24) Est Glomerular Filtrat Rate mL/min > 60 mL/min (>60) Glucose Level 115 mg/dl (70-220) Calcium Level 8.0 mg/dl (8.4-10.2) Phosphorus Level 3.7 mg/dl (2.5-4.9) Magnesium Level 2.0 mg/dl (1.7-2.5) EDDIE CARREON NP August 13, 2018 15:23
== END 2018-08-13 12:00 | disposition home health service (06) | DRG 483 ==
LOC: SDS 11:28 → MS1 19:22 → SDS 19:22 → MS1 19:50 → OBSVTOIN 08-05 13:00 → TEL 08-08 04:30 → 6WM 08-08 10:55 → PP2 08-11 20:55
PROVIDERS: ADMIT Orthopaedic Surgery; ATTEND Orthopaedic Surgery
PROC: 0RPJ08Z Removal of Spacer from Right Shoulder Joint, Open Approach (ICD-10-PCS; 2018-08-04)
PROC: 3E0U029 Introduction of Other Anti-infective into Joints, Open Approach (ICD-10-PCS; 2018-08-04)
PROC: 0RRJ00Z Replacement of Right Shoulder Joint with Reverse Ball and Socket Synthetic Substitute, Open Approach (ICD-10-PCS; principal; 2018-08-04 13:30)
PROC: 30233N1 Transfusion of Nonautologous Red Blood Cells into Peripheral Vein, Percutaneous Approach (ICD-10-PCS; 2018-08-08)
PROC: 0DJ08ZZ Inspection of Upper Intestinal Tract, Via Natural or Artificial Opening Endoscopic (ICD-10-PCS; 2018-08-09)
DX: Z47.31 Aftercare following explantation of shoulder joint prosthesis (principal); K25.4 Chronic or unspecified gastric ulcer with hemorrhage; K29.71 Gastritis, unspecified, with bleeding; K26.4 Chronic or unspecified duodenal ulcer with hemorrhage; K92.0 Hematemesis; K92.1 Melena; D62 Acute posthemorrhagic anemia; E78.5 Hyperlipidemia, unspecified; F32.9 Major depressive disorder, single episode, unspecified; F41.9 Anxiety disorder, unspecified; F17.200 Nicotine dependence, unspecified, uncomplicated; G89.18 Other acute postprocedural pain; I95.9 Hypotension, unspecified; I10 Essential (primary) hypertension; J43.9 Emphysema, unspecified; R09.02 Hypoxemia; Z88.0 Allergy status to penicillin; Z88.2 Allergy status to sulfonamides
CPT/HCPCS: 36430; 36569; 71045; 73020; 74018; 76937; 80048; 80053; 80202; 82962; 83735; 84100; 84443; 85014; 85018; 85025; 86850; 86900; 86901; 86920; 86999; 87070; 87075; 87102; 87116; 88300; 88304; 88311; C1776; C9113; G0378; J0690; J1100; J1170; J1650; J1885; J2001; J2060; J2175; J2250; J2270; J2405; J2765; J2795; J3010; J3370; J7030; J7040; J7050; P9016